=== PATIENT | female | born 1980 | race African-American/Black ===

== ENCOUNTER 2019-12-24 11:31 | Emergency (ER) | payer MEDICAID, SELFPAY ==
--- NOTE | 2019-12-24 | XR_ITS ---
EXAMINATION: XR CHEST CLINICAL INFORMATION: Cough, shortness of breath. COMPARISON: None. TECHNIQUE: AP portable upright view of the chest FINDINGS: Lungs are clear. No consolidation, pneumothorax, or pleural effusion. Cardiac and mediastinal contours are normal. Pulmonary vasculature is unremarkable. Osseous structures are unremarkable. IMPRESSION: No acute cardiopulmonary findings
[2019-12-24 11:48] VITALS: BP 135/74; PULSE 100; RESP 17; TEMP 36.4; O2SAT 97; BMI 40.2
--- NOTE | 2019-12-24 11:52 | ED.URI ---
HPI - URI/Sore Throat General Chief Complaint: Upper Respiratory Symptoms Stated Complaint: SOB, SORE THROAT, HEADACHE, COUGH Time Seen by Provider: 12/24/19 11:42 Source: patient Mode of arrival: ambulatory Limitations: no limitations History of Present Illness HPI Narrative: Cough, runny nose, sore throat, shortness of breath, headache for 3 days. Son at home has same symptoms. No fevers or chills MD elicited complaint: cough, sore throat and rhinorrhea Onset (ago): day(s) Consistency: constant Severity: mild Able to tolerate fluids by mouth: Yes Context: sick contacts Related Data Allergies Allergy/AdvReac Type Severity Reaction Status Date / Time No Known Allergies Allergy Unverified 12/03/19 17:57 [No Known Allergies*] Review of Systems Review of Systems: Yes all other systems are reviewed and are negative Constitutional: Constitutional: Reports no additional constitutional complaints, Reports body ache(s), Denies chills, Denies fever(s), Reports headache(s) and Denies weakness Eyes: Eyes: Reports no additional eye complaints and Denies change in vision ENT: Reports system reviewed and no additional complaints, except as documented, Denies dizziness, Denies otalgia, Reports headache(s), Reports nasal discharge, Denies neck pain and Reports sore throat Cardiovascular: Cardiovascular: Reports no additional cardiovascular complaints, Denies chest pain, Denies leg edema and Reports dyspnea Respiratory: Respiratory: Reports no additional respiratory complaints, Reports cough and Reports dyspnea Gastrointestinal: Gastrointestinal: Reports no additional gastrointestinal complaints, Denies abdominal pain, Denies diarrhea, Denies nausea and Denies vomiting Genitourinary: Genitourinary: Reports no additional female genitourinary complaints and Denies urinary incontinence Musculoskeletal: Musculoskeletal: Reports no additional musculoskeletal complaints, Denies back pain, Denies arthralgias, Denies joint swelling, Denies neck pain, Denies numbness and Denies tingling Integumentary/Breasts: Skin/Breast: Reports system reviewed and no additional complaints, except as docu and Denies rash Neurologic: Reports system reviewed and no additional complaints, except as documented, Denies Abnormal speech present, Denies dizziness, Reports headache(s), Denies numbness, Denies tingling and Denies weakness PMFSH Past Medical History Attestation statement: The following information was validated with the patient. Source: obtained from family and nursing notes reviewed Medical History Diabetes Social History Social History Alcohol intake: unknown Use of substances other than those prescribed or required for medical reasons: Unknown Advance Directives: No Advance Directives Information Provided: Yes Physical Exam Vital Signs and I&O and Narrative: Vital Signs and I&O: Vital Signs Temp 97.6 F 12/24/19 11:48 Pulse 100 12/24/19 11:48 Resp 17 12/24/19 11:48 BP 135/74 12/24/19 11:48 Pulse Ox 97 12/24/19 11:48 Intake & Output 12/23/19 12/24/19 12/24/19 18:59 06:59 18:59 Weight 99.79 kg Body Mass Index 40.2 Const: General: cooperative, healthy appearing, comfortable and no acute distress Orientation/consciousness: patient oriented x3 Limitations: no limitations HENMT: Head: Yes normal to inspection Ears: hearing grossly normal bilaterally General nose exam: Normal external nose present Face and sinus: Yes normal facial exam Mouth: Normal oral and palatal mucosa present Throat: Yes posterior oropharynx normal Eyes: General: appearance normal, both eyes and all related structures Pupils: Equal, round and reactive pupils present Neck: Neck: Yes normal visual inspection Chest: Chest palpation & inspection: normal inspection of the chest Resp: Effort & Inspection: normal respiratory effort and able to speak in complete sentences Auscultation: clear to auscultation bilaterally and wheezes expiratory wheezes, left lower, right lower and posterior Cardio: Rate: regular rate Rhythm: regular rhythm Peripheral pulses: Peripheral pulses 2+ throughout GI: Inspection: Yes normal to inspection Palpation (GI): Soft to palpation and nontender Auscultation: normal bowel sounds Back/Spine/Pelvis: Thoracic/Lumbar Spine: thoracic and lumbar spine normal to inspection Skin: General skin exam: no rashes or lesions noted Neuro: General: patient oriented x3, no focal motor deficits and normal sensation to monofilament Cranial nerves: Yes Equal, round and reactive pupils present Cognition (Neuro): normal cognition Speech: No Abnormal speech present Gait exam (Neuro): Normal gait present Motor exam (neuro): 5/5 motor strength present throughout Extrem: General: Yes normal to inspection MDM - URI/Sore Throat MDM Narrative Medical decision making narrative: flu-like symptoms for the last 2 days with sick contact. Requesting COVID testing. Has some expiratory wheezing on exam with stable saturations and speaking full sentences. Will give albuterol MDI 2 puffs and reassess. Check chest x-ray and COVID swab. 1300- Chest x-ray unremarkable. COVID testing sent. Reviewed worrisome signs and symptoms and when to return to the emergency department. Comfortable discharge home. Imaging Data Chest x-ray: Attestation: I personally reviewed and interpreted this imaging study as follows: My impression: Unremarkable Radiologist's impression: unremarkable. No acute abnormality. Discharge Plan Discharge Clinical Impression: Viral infection Patient Disposition: Home, Self-Care Instructions: Viral Syndrome (ED) Additional Instructions: We have tested due today for COVID-19. We will call you in 1-2 days with her test results If her test result is positive you will need to self-quarantine for a total of 14 days. If her test result is negative but you continue to have symptoms you should still self-quarantine. Use your inhaler every 4-6 hours as needed for cough or wheezing Increase fluids, rest Motrin or Tylenol if able as needed for pain or fever Referrals: Physician,Unknown [Primary Care Provider] - 2 days Stand Alone Forms: Work/School Release Interventions: ED Discharge Assessment Last Done: 12/24/19 13:05 Discharge Date/Time: 12/24/19 13:06
== END 2019-12-24 13:06 | disposition home or self-care (01) ==
PROVIDERS: Nurse Practitioner Family; Emergency Provider Internal Medicine
DX: B34.9 Viral infection, unspecified (principal); Z20.828 Contact with and (suspected) exposure to other viral communicable diseases; J02.9 Acute pharyngitis, unspecified; E11.9 Type 2 diabetes mellitus without complications
CPT/HCPCS: 71045; 87635; 99283; 99284

== ENCOUNTER 2020-01-04 11:01 | Outpatient (REF) | payer MEDICAID, SELFPAY | END 2020-01-04 11:02 | disposition home or self-care (01) | LOC: HO.LAB 11:01 | PROVIDERS: Visit Provider Internal Medicine | DX: Z20.828 Contact with and (suspected) exposure to other viral communicable diseases (principal) | CPT/HCPCS: 87635 ==

== ENCOUNTER 2020-01-11 13:15 | Outpatient (REF) | payer MEDICAID, SELFPAY | END 2020-01-11 13:16 | disposition home or self-care (01) | LOC: HO.LAB 13:15 | PROVIDERS: Visit Provider Internal Medicine | DX: Z20.828 Contact with and (suspected) exposure to other viral communicable diseases (principal) | CPT/HCPCS: 87635 ==

== ENCOUNTER 2020-02-23 06:37 | Outpatient (REF) | payer MEDICAID, SELFPAY | END 2020-02-23 06:38 | disposition home or self-care (01) | LOC: HO.LAB 06:37 | PROVIDERS: Visit Provider Internal Medicine | DX: Z20.828 Contact with and (suspected) exposure to other viral communicable diseases (principal) | CPT/HCPCS: C9803; U0003 ==

== ENCOUNTER 2020-02-29 06:19 | Outpatient (REF) | payer MEDICAID, SELFPAY | END 2020-02-29 06:20 | disposition home or self-care (01) | LOC: HO.LAB 06:19 | PROVIDERS: Visit Provider Internal Medicine | DX: Z20.828 Contact with and (suspected) exposure to other viral communicable diseases (principal) | CPT/HCPCS: C9803; U0003 ==

== ENCOUNTER 2020-02-29 07:48 | Emergency (ER) | payer MEDICAID, SELFPAY ==
[2020-02-29 07:54] VITALS: BP 168/96; PULSE 89; RESP 17; TEMP 36.1; O2SAT 99; BMI 31.7
--- NOTE | 2020-02-29 09:07 | ED.NECK ---
HPI - Neck Pain/Injury General Chief Complaint: Neck Pain/Injury Stated Complaint: pain in the back of your head Time Seen by Provider: 02/29/20 09:06 Source: patient Mode of arrival: ambulatory Limitations: no limitations History of Present Illness HPI Narrative: 39 y/o female presenting with 4 days of non-traumatic neck pain, mostly on the left side. She states she woke up with the pain and does not recall any injury. She has not taken any medications for the pain. She states it is worse when looking to her right. She reports posterior headache as well and upper back tightness. No fever, chills, vision changes, N/V. MD complaint: neck pain and upper back pain Onset (ago): day(s) (4) Place: home Radiation: left lateral, occiput and upper back Severity: moderate Severity scale (1-10): 6 Quality: aching Duration: constant Relieving factors: none Exacerbating factors: movement of neck Context: unknown Associated symptoms: headache Treatments prior to arrival: none Related Data Previous Rx's Medication Instructions Recorded cyclobenzaprine 10 mg PO TID PRN #12 tab 02/29/20 ibuprofen 600 mg PO Q8H PRN #30 tab 02/29/20 lidocaine [Lidoderm] 1 patch TOPICAL DAILY #15 ea 02/29/20 Allergies Allergy/AdvReac Type Severity Reaction Status Date / Time No Known Allergies Allergy Unverified 12/03/19 17:57 [No Known Allergies*] Review of Systems Review of Systems: Constitutional: No Fever, No Chills ENT/Mouth: No sore throat, No Rhinorrhea, No Swallowing Difficulty Cardiovascular: No Chest Pain, No SOB, No Orthopnea, No Edema Respiratory: No Cough, No Sputum, No Wheezing, No dyspnea Gastrointestinal: No Nausea, No Vomiting, No Diarrhea, No abdominal Pain Musculoskeletal: + joint pain, + Myalgias Skin: No Skin Lesions, No rash Neuro: No Weakness, No Numbness, No Dizziness, + Headache Heme/Lymph: No Bruising, No Lymphadenopathy PMFSH Past Medical History Attestation statement: The following information was validated with the patient. Medical History Diabetes Social History Social History Alcohol intake: unknown Advance Directives: No Advance Directives Information Provided: No Physical Exam Vital Signs: Vital Signs: Last Vital Signs Temp 97.0 F 02/29/20 07:54 Pulse 89 02/29/20 07:54 Resp 17 02/29/20 07:54 BP 168/96 H 02/29/20 07:54 Pulse Ox 99 02/29/20 07:54 Body Mass Index 31.7 Appearance: Alert. Oriented X3. No acute distress. Eyes: Pupils equal, round and reactive to light. ENT: Pharynx normal. Neck: Normal inspection. Neck supple. Left lateral soft tissue tenderness with palpable spasm of upper trapezius and superior SCM. no cervical spinal tenderness of step-off deformity. CVS: Normal heart rate and rhythm. Pulses normal. Respiratory: No respiratory distress. Breath sounds normal. Skin: Skin warm and dry. Normal skin color. Normal skin turgor. No rashes. Extremities: Atraumatic. No lower extremity edema. Neuro: Oriented X 3. No motor deficit. No sensory deficit. Course Course Course Narrative: 39 y/o presenting with non-traumatic neck pain - exam and history consistent with muscular pain and spasm, possible torticollis but ROM is adequate. Will give muscle relaxer, NSAID and Lidoderm patches for pain. She was counseled on managment. She has no PCP and information has been provided to her. She is stable for d/c. MDM - Neck Pain/Injury Differential Diagnosis Differential diagnosis: Likely disc disorder of cervical region, cervical radiculopathy, torticollis and strain of neck muscle Critical Care Time Critical Care Time Critical Care Time: No Discharge Plan Discharge Clinical Impression: Strain of neck muscle Qualifiers: Encounter type: initial encounter Qualified Code(s): S16.1XXA - Strain of muscle, fascia and tendon at neck level, initial encounter Patient Disposition: Home, Self-Care Instructions: Cervical Strain (ED), Acute Neck Pain (ED) Additional Instructions: Use ice and/or heat to the area several times per day. Take the prescribed medications as needed for pain and spasm. Follow up with your doctor this week. If pain worsens or if you develop any new or concerning symptoms come back to the ER for further evaluation. Prescriptions: New lidocaine [Lidoderm] 5 % adhesive patch,medicated 1 patch topical DAILY Qty: 15 RF: 0 ibuprofen 600 mg tablet 600 mg PO Q8H PRN (Reason: pain) Qty: 30 RF: 0 cyclobenzaprine 10 mg tablet 10 mg PO TID PRN (Reason: muscle spasm) Qty: 12 RF: 0 Interventions: ED Discharge Assessment Last Done: 02/29/20 09:31 Discharge Date/Time: 02/29/20 09:32 Print Language: Occitan
== END 2020-02-29 09:32 | disposition home or self-care (01) ==
PROVIDERS: Emergency Provider Emergency Medicine
DX: S16.1XXA Strain of muscle, fascia and tendon at neck level, initial encounter (principal); X58.XXXA Exposure to other specified factors, initial encounter; Z20.828 Contact with and (suspected) exposure to other viral communicable diseases; E11.9 Type 2 diabetes mellitus without complications; Y93.9 Activity, unspecified; Y92.9 Unspecified place or not applicable; Y99.9 Unspecified external cause status
CPT/HCPCS: 99283

== ENCOUNTER 2020-08-30 15:08 | Outpatient (REF) | payer MEDICAID, SELFPAY ==
--- NOTE | ~2020-08-30 | US_ITS ---
EXAMINATION: US THYROID CLINICAL INFORMATION: Nontoxic single thyroid nodule. COMPARISON: Ultrasound soft tissue head/neck thyroid dated 12/16/2017. TECHNIQUE: Linear transducer grayscale and color Doppler examination with attention to the region of the thyroid. FINDINGS: SIZE: Measurements of the thyroid lobes and nodules are given in sagittal, anteroposterior and transverse dimensions respectively. Right Thyroid Lobe: 5.0 x 1.9 x 1.8 cm, volume 8.9 mL. Previously 4.8 x 1.6 x 1.8 cm, volume 7.2 mL. Parenchyma: The gland echotexture is homogeneous. Thyroid vascularity is normal. Left Thyroid Lobe: 4.8 x 1.4 x 1.5 cm, volume 5.3 mL. Previously 4.6 x 1.6 x 1.4 cm, volume 5.3 mL. Parenchyma: The gland echotexture is homogeneous. Thyroid vascularity is normal. Isthmus: 0.5 cm in maximum AP dimension. Previously 0.5 cm. Estimated total number of nodules greater than or equal to 1 cm: 1. Glass Blowing Lathe Operator nodules are described as follows: 1. Location: Right superior. Size: 0.7 x 0.7 x 0.4 cm, volume 0.1 mL. Previously: 0.9 x 0.5 x 0.9 cm, volume 0.2 mL. Nodule characteristics: Composition: Spongiform (0). Echogenicity: Anechoic (0). Shape: Not taller than wide (0). Margins: Smooth (0). Echogenic Foci: None (0). ACR TI-RADS total points: 0 ACR TI-RADS category: 1 Significant change in size (>/= 20% in 2 dimensions and minimal increase of 2 mm or 50% or greater increase in volume): Yes but decreased Change in features: No Change in ACR TI-RADS risk category: No 2. Location: Right superior. Size: 1.0 x 0.6 x 0.3 cm, volume 0.1 mL. Previously: 1.2 x 0.6 x 0.8 cm, volume 0.3 mL. Nodule characteristics: Composition: Mixed cystic and solid (1). Echogenicity: Hypoechoic (2). Shape: Not taller than wide (0). Margins: Smooth (0). Echogenic Foci: None (0). ACR TI-RADS total points: 3 ACR TI-RADS category: 3 Significant change in size (>/= 20% in 2 dimensions and minimal increase of 2 mm or 50% or greater increase in volume): Yes but decreased Change in features: Yes. This appears more complex cystic. Change in ACR TI-RADS risk category: No 3. Location: Right mid. Size: 0.2 x 0.3 x 0.3 cm, volume 0.01 mL. Previously: 0.2 x 0.1 x 0.3 cm, volume 0.003 mL. Nodule characteristics: Composition: Solid/almost completely solid (2). Echogenicity: Isoechoic (1). Shape: Not taller than wide (0). Margins: Smooth (0). Echogenic Foci: None (0). ACR TI-RADS total points: 3 ACR TI-RADS category: 3 Significant change in size (>/= 20% in 2 dimensions and minimal increase of 2 mm or 50% or greater increase in volume): No Change in features: No Change in ACR TI-RADS risk category: No 4. Location: Left mid. Size: 0.1 x 0.2 x 0.2 cm, volume 0.002 mL. Previously: Not seen on the previous study. Nodule characteristics: Composition: Cystic(0). ACR TI-RADS total points: 0 ACR TI-RADS category: 1 NODES: No lymphadenopathy is seen in the tissue surrounding the thyroid gland. US/US thyroid IMPRESSION: Small bilateral thyroid nodules. The 2 largest right thyroid nodules appear decreased in size compared to December 2017. The largest nodule in the superior right lobe appears more complex cystic. There is a newly appreciated small left nodule. Nodules do not meet ultrasound TI RADS criteria for fine-needle aspiration.. ACR TI-RADS RECOMMENDATION REFERENCE: Ultrasound-guided fine-needle aspiration, followup ultrasound, no further follow up. * TR1 (0 point) and TR 2 (2 points): No FNA or follow up * TR3 (3 points): FNA if more than or equal to 2.5 cm in maximum dimension, followup ultrasound in 1, 3 and 5 years if 1.5 to 2.4 cm in maximum dimension. * TR4 (4-6 points): FNA if more than or equal to 1.5 cm in maximum dimension, followup ultrasound in 1, 2, 3 and 5 years if 1 to 1.4 cm in maximum dimension. * TR5 (more than or equal to 7 points): FNA if more than or equal to 1 cm in maximum dimension, followup ultrasound every year for 5 years if 0.5 to 0.9 cm in maximum dimension. * TR3, TR4 or TR5 nodules that are below the size threshold for follow up receive no follow up.
== END 2020-08-30 15:09 | disposition home or self-care (01) ==
LOC: HO.US 15:08
PROVIDERS: PCP Registered Nurse; Visit Provider Registered Nurse
DX: E04.1 Nontoxic single thyroid nodule (principal)
CPT/HCPCS: 76536

== ENCOUNTER → 2020-09-08 14:12 | Outpatient (BNVA) | payer MEDICAID, SELFPAY | PROVIDERS: PCP Registered Nurse; Visit Provider Internal Medicine | DX: E04.2 Nontoxic multinodular goiter (principal); E55.9 Vitamin D deficiency, unspecified | CPT/HCPCS: 99202 ==

== ENCOUNTER 2020-10-20 12:25 | Outpatient (REF) | payer MEDICAID, SELFPAY ==
--- NOTE | ~2020-10-20 | XR_ITS ---
EXAMINATION: XR KNEE, RIGHT CLINICAL INFORMATION: Right knee pain. Effusion. COMPARISON: None TECHNIQUE: Four views of the right knee. FINDINGS: Bony mineralization is normal. There is no fracture or destructive process. There are degenerative changes with mild narrowing medial knee joint compartment and marginal osteophytes from the medial and lateral femoral condyles and borderline osteophyte medial plateau. No erosive change or visible chondrocalcinosis. There is a moderate to large suprapatellar effusion. Hoffa's fat pad appears normal. There is no lateralization or tilting of the patella. The patellofemoral joint appears normal. XR/XR knee RT 4V IMPRESSION: 1. Moderate to large suprapatellar effusion. 2. Mild narrowing medial knee joint compartment. Spurring femoral condyles and borderline spurring tibial plateau. No erosive change.
--- NOTE | ~2020-10-20 | XR_ITS ---
EXAMINATION: XR CHEST CLINICAL INFORMATION: Shortness of breath COMPARISON: Chest radiograph 12/24/2019 TECHNIQUE: 2 views of the chest were obtained. FINDINGS: There is subtle coarsening bronchiolar markings which may be related to bronchitis. There is no hyperinflation, airspace consolidation, groundglass opacity. The costophrenic sulci are clear. The heart is normal in size. The vascularity is normal. The hilar and mediastinal contours are normal. There is no acute bony abnormality. XR/XR chest 2V IMPRESSION: Mild coarsening bronchiolar markings which may related to bronchitis. No airspace consolidation, groundglass opacity, or effusion.
[2020-10-20 13:46] LABS: Free T4 (Free Thyroxine) 0.99 ng/dL (0.71-1.85); Thyroid Stimulating Hormone 0.91 uIU/mL (0.32-4.0); Vitamin D 25-OH Total 18.4 ng/mL (>30)
== END 2020-10-20 12:26 | disposition home or self-care (01) ==
LOC: HO.LAB 12:25
PROVIDERS: Absent Provider Internal Medicine; PCP Registered Nurse; Visit Provider Registered Nurse
DX: E04.2 Nontoxic multinodular goiter (principal); E55.9 Vitamin D deficiency, unspecified; M25.461 Effusion, right knee; M25.561 Pain in right knee; R06.02 Shortness of breath
CPT/HCPCS: 36415; 71046; 73564; 82306; 84439; 84443

== ENCOUNTER 2021-09-09 17:02 | Emergency (ER) | payer MEDICAID, SELFPAY ==
--- NOTE | 2021-09-09 17:03 | ECG_ITS ---
Test Reason : DIZZY X 3DAYS Blood Pressure : / mmHG Vent. Rate : 094 BPM Atrial Rate : 094 BPM P-R Int : 128 ms QRS Dur : 078 ms QT Int : 352 ms P-R-T Axes : 056 007 -66 degrees QTc Int : 440 ms Normal sinus rhythm Minimal voltage criteria for LVH, may be normal variant ( R in aVL ) T wave abnormality, consider inferolateral ischemia Abnormal ECG No previous ECGs available Referred By: Generic ED Physician Electronically Signed By:XANDER AGUILERA MD
[2021-09-09 17:05] VITALS: BP 120/73; PULSE 100; RESP 18; TEMP 36.3; O2SAT 98; BMI 34.3
[2021-09-09 19:12] VITALS: BP 125/71; PULSE 85; RESP 18; TEMP 36.5; O2SAT 97
[2021-09-09 19:15] VITALS: BP 125/71; PULSE 85
[2021-09-09 19:16] VITALS: BP 116/69; BP 118/66; PULSE 101; PULSE 95
--- NOTE | 2021-09-09 19:17 | ED_ITS ---
HPI - Dizziness General Chief Complaint: Dizziness Stated Complaint: Dizzy/HBP Time Seen by Provider: 09/09/21 22:17 Source: patient Mode of arrival: ambulatory Limitations: language barrier History of Present Illness HPI Narrative: 41-year-old female presents with 3 days of dizziness, and intermittent loss of balance. She reported to take of vertigo pill from her cousin that did not help. She is concerned because the dizziness is lasted for 3 days and has not gone away. She did not report any fevers, chills, changes in vision, urinary symptoms, abdominal pain, chest pain or pressure, palpitations weakness, or lightheadedness. MD elicited complaint: vertigo and disequilibrium Pertinent past history: anemia Onset (ago): day(s) (3) Timing: gradual onset Severity: moderate Description: room spinning and off-balance History of similar symptoms: No Exacerbating factors: nothing Relieving factors: nothing Associated symptoms: denies other symptoms Related Data Home Medications Medication Instructions Recorded Confirmed metformin 500 mg tablet 500 mg PO BID 09/08/20 Previous Rx's Medication Instructions Recorded ibuprofen 600 mg tablet 600 mg PO Q8H PRN pain #30 tabs 02/29/20 cholecalciferol (vitamin D3) 50 50 mcg PO DAILY 30 days #30 caps 10/24/20 mcg (2,000 unit) capsule Allergies Allergy/AdvReac Type Severity Reaction Status Date / Time No Known Allergies Allergy Verified 09/08/20 14:28 [No Known Allergies*] Review of Systems Review of Systems: Constitutional: No Fever, No Chills ENT/Mouth: No Ear Pain, No Hoarseness, No sore throat Eyes: No Eye Pain, No Swelling, No Redness, No Foreign Body Cardiovascular: No Chest Pain, No SOB Respiratory: No Cough, No Dyspnea Gastrointestinal: No Nausea, No Vomiting, No Diarrhea, No abdominal Pain Genitourinary: No Dysuria, No Hematuria Musculoskeletal: positive joint pain, No Myalgias, No Joint Swelling Skin: No Skin lacerations, No rash Neuro: No Weakness, No Numbness, No Paresthesias, No Loss of Consciousness, positive Dizziness, No Headache Psych: No Anxiety/Panic, No Depression Heme/Lymph: no easy bruising, no Lymphadenopathy Endocrine: No Polyuria, No Polydipsia Yes all other systems are reviewed and are negative [facility] Past Medical History Attestation statement: The following information was validated with the patient. Source: old records reviewed Medical History Diabetes Surgical History History of hand surgery History of surgery Hx of section Family History Family History Father No problems noted. Mother Type 2 diabetes mellitus Social History Social History Alcohol intake: unknown Patient Tobacco Use Status: Current everyday Tobacco user Tobacco use type: Cigarette Advance Directives: No Advance Directives Information Provided: No Physical Exam Vital Signs: Vital Signs: Last Vital Signs Temp 97.7 F 09/09/21 19:12 Pulse 101 H 09/09/21 19:16 Resp 18 09/09/21 19:12 BP 116/69 09/09/21 19:16 Pulse Ox 97 09/09/21 19:12 O2 Del Method 09/09/21 19:12 BMI result Body Mass Index 34.3 Appearance: Alert. Oriented X3. No acute distress. Head: Normal external exam. Normocephalic. Atraumatic. Eyes: PERRLA. EOMI. Conjunctiva and sclera normal. Eyelids normal. ENT: TM's Normal. Pharynx normal. Uvula midline. Moist mucous membranes. No trismus noted. Neck: Normal inspection. Neck supple. No adenopathy. No meningeal signs. No neck mass noted. CVS: Normal heart rate and rhythm. Heart sound normal. No murmurs noted. Pulses equal to all extremities. Respiratory: No respiratory distress. Painless inspiration. Breath sounds normal. No wheezes/rales/rhonchi noted. Chest nontender. No accessory muscle usage noted or decreased air movement noted. Abdomen: Soft and nontender. Bowel sounds normal in all 4 quadrants. No distention noted. No organomegaly noted. No visible injury noted. Back: No CVA tenderness. Full range of motion noted. Skin: Skin warm and dry. Normal skin color. Normal skin turgor. No rashes/lesions/lacerations noted. Extremities: No lower extremity edema. Extremities exhibit normal range of motion. Extremities nontender. Neuro: cranial nerves 2-12 intact, no focal neural deficits, strength 5/5 to a ll extremities, No motor deficit. No sensory deficit. Course Course Course Narrative: 41-year-old female presents with her 1st episode of dizziness. Dizziness has lasted 3 days and is intermittent. She does not report any other concerning symptoms with this dizziness. She did try to take a vertigo pill from her cousin with poor effect. She does have a history of anemia. Will order labs, urinalysis, urine and CT scan of the head. CT scan of the head will be completed once lab values return. 21:51 urinalysis is pending. 22:22 patient stated that she does not want a complete exam. States that she has an appointment with her primary care provider on Saturday and will receive a CT scan at that time. I did explain to her that the primary care physician could order CT scan but she would have to come back to a hospital or another facility that provides that testing for her. She does understand the risks of leaving without completing testing including stroke, brain tumor, and decreased quality of life. Patient is alert oriented, responding appropriately to all questions, is competent and able to make her own decisions. medical interpreter utilized for all correspondence. Google translate utilized for discharge instructions. MDM - Dizziness Differential Diagnosis Differential diagnosis: Likely benign paroxysmal positional vertigo, vertebral basilar insufficiency, cerebrovascular accident, acute vestibular neuronitis and transient cerebral ischemia Medical Records Attestation: I reviewed the patient's medical records. Lab Data Attestation: I reviewed the patient's lab results. Result diagrams: 09/09/21 19:35 09/09/21 19:35 Labs: Lab Results 09/09/21 09/09/21 09/09/21 Range/Units 19:31 19:31 19:35 WBC 8.7 (4.8-10.8) X10*3/uL RBC 5.29 (4.20-5.50) X10*6/uL Hgb 11.9 L (12.0-16.0) g/dl Hct 38.9 (37.0-47.0) % MCV 73.5 L (80.0-98.0) fL MCH 22.5 L (27.0-33.0) pg MCHC 30.6 L (31.0-35.0) g/dl RDW 22.2 H (11.0-16.0) % Plt Count 188 (160-400) X10*3/uL MPV Not Reportable Immature Gran % (Auto) 0.3 (0.0-0.4) % Neut % (Auto) 64.6 (45-73) % Lymph % (Auto) 25.6 (20-40) % [place] % (Auto) 6.4 (2-11) % Eos % (Auto) 2.5 (0-4) % Baso % (Auto) 0.6 (0-2) % Lymph # (Auto) 2.2 (1.2-4.9) X10*3/uL [place] # (Auto) 0.6 (0.1-1.2) X10*3/uL Eos # (Auto) 0.2 (0.0-0.4) X10*3/uL Baso # (Auto) 0.1 (0.0-0.2) X10*3/uL Abs Immat Gran (auto) 0.03 (0.00-0.03) X10*3/uL Absolute Neuts (auto) 5.6 (2.0-8.3) x10*3/uL Absolute Nucleated RBC 0.000 (0.0-0.012) X10*3/uL Nucleated RBC % (auto) 0.0 (0.0-0.2) /100WBC Smear Tech's Comments VERIFIED Sodium (135-145) mmol/L Potassium (3.3-5.1) mmol/L Chloride (96-108) mmol/L Carbon Dioxide (22-29) mmol/L Anion Gap (12-20) BUN (9-16) mg/dL Creatinine (0.5-1.4) mg/dL Estim Creat Clear Calc Estimated GFR Random Glucose (60-115) mg/dL Calcium (8.4-10.2) mg/dL Total Bilirubin (0.0-1.0) mg/dL Direct Bilirubin (0.0-0.5) mg/dL AST (5-31) U/L ALT (0-31) U/L Alkaline Phosphatase (39-117) U/L Troponin I High Sens (<3.5-17.0) ng/L Total Protein (6.5-8.0) g/dL Albumin (3.5-5.0) g/dL Lipase (8-78) U/L Urine Color Urine Appearance Urine pH (5.0-8.0) Ur Specific [place] (1.005-1.025) Urine Protein (NEG-TRACE) MG/DL Urine Glucose (UA) (NEG) MG/DL Urine Ketones (NEG) MG/DL Urine Blood (NEG) Urine Nitrite (NEG) Ur Leukocyte Esterase (NEG) Urine Test (NEGATIVE) COVID-19 (ULISES) Negative (Negative) COVID-19 Clin Com See Note Influenza Type A (BRIDGET) Negative (Negative) Influenza Type B (BRIDGET) Negative (Negative) Influenza A & B Note See Note 09/09/21 09/09/21 09/09/21 Range/Units 19:35 19:35 21:38 WBC (4.8-10.8) X10*3/uL RBC (4.20-5.50) X10*6/uL Hgb (12.0-16.0) g/dl Hct (37.0-47.0) % MCV (80.0-98.0) fL MCH (27.0-33.0) pg MCHC (31.0-35.0) g/dl RDW (11.0-16.0) % Plt Count (160-400) X10*3/uL MPV Immature Gran % (Auto) (0.0-0.4) % Neut % (Auto) (45-73) % Lymph % (Auto) (20-40) % [place] % (Auto) (2-11) % Eos % (Auto) (0-4) % Baso % (Auto) (0-2) % Lymph # (Auto) (1.2-4.9) X10*3/uL [place] # (Auto) (0.1-1.2) X10*3/uL Eos # (Auto) (0.0-0.4) X10*3/uL Baso # (Auto) (0.0-0.2) X10*3/uL Abs Immat Gran (auto) (0.00-0.03) X10*3/uL Absolute Neuts (auto) (2.0-8.3) x10*3/uL Absolute Nucleated RBC (0.0-0.012) X10*3/uL Nucleated RBC % (auto) (0.0-0.2) /100WBC Smear Tech's Comments Sodium 137 (135-145) mmol/L Potassium 3.8 (3.3-5.1) mmol/L Chloride 103 (96-108) mmol/L Carbon Dioxide 24 (22-29) mmol/L Anion Gap 14 (12-20) BUN 13 (9-16) mg/dL Creatinine 0.80 (0.5-1.4) mg/dL Estim Creat Clear Calc 98.9 Estimated GFR > 60 Random Glucose 201 H (60-115) mg/dL Calcium 9.4 (8.4-10.2) mg/dL Total Bilirubin 0.2 (0.0-1.0) mg/dL Direct Bilirubin < 0.2 (0.0-0.5) mg/dL AST 17 (5-31) U/L ALT 40 H (0-31) U/L Alkaline Phosphatase 85 (39-117) U/L Troponin I High Sens < 3.5 (<3.5-17.0) ng/L Total Protein 6.9 (6.5-8.0) g/dL Albumin 4.0 (3.5-5.0) g/dL Lipase 35 (8-78) U/L Urine Color YELLOW Urine Appearance CLEAR Urine pH 6.0 (5.0-8.0) Ur Specific [place] 1.025 (1.005-1.025) Urine Protein TRACE (NEG-TRACE) MG/DL Urine Glucose (UA) 100 H (NEG) MG/DL Urine Ketones NEG (NEG) MG/DL Urine Blood NEG (NEG) Urine Nitrite NEG (NEG) Ur Leukocyte Esterase NEG (NEG) Urine Test (NEGATIVE) COVID-19 (ULISES) (Negative) COVID-19 Clin Com Influenza Type A (BRIDGET) (Negative) Influenza Type B (BRIDGET) (Negative) Influenza A & B Note 09/09/21 Range/Units 21:38 WBC (4.8-10.8) X10*3/uL RBC (4.20-5.50) X10*6/uL Hgb (12.0-16.0) g/dl Hct (37.0-47.0) % MCV (80.0-98.0) fL MCH (27.0-33.0) pg MCHC (31.0-35.0) g/dl RDW (11.0-16.0) % Plt Count (160-400) X10*3/uL MPV Immature Gran % (Auto) (0.0-0.4) % Neut % (Auto) (45-73) % Lymph % (Auto) (20-40) % [place] % (Auto) (2-11) % Eos % (Auto) (0-4) % Baso % (Auto) (0-2) % Lymph # (Auto) (1.2-4.9) X10*3/uL [place] # (Auto) (0.1-1.2) X10*3/uL Eos # (Auto) (0.0-0.4) X10*3/uL Baso # (Auto) (0.0-0.2) X10*3/uL Abs Immat Gran (auto) (0.00-0.03) X10*3/uL Absolute Neuts (auto) (2.0-8.3) x10*3/uL Absolute Nucleated RBC (0.0-0.012) X10*3/uL Nucleated RBC % (auto) (0.0-0.2) /100WBC Smear Tech's Comments Sodium (135-145) mmol/L Potassium (3.3-5.1) mmol/L Chloride (96-108) mmol/L Carbon Dioxide (22-29) mmol/L Anion Gap (12-20) BUN (9-16) mg/dL Creatinine (0.5-1.4) mg/dL Estim Creat Clear Calc Estimated GFR Random Glucose (60-115) mg/dL Calcium (8.4-10.2) mg/dL Total Bilirubin (0.0-1.0) mg/dL Direct Bilirubin (0.0-0.5) mg/dL AST (5-31) U/L ALT (0-31) U/L Alkaline Phosphatase (39-117) U/L Troponin I High Sens (<3.5-17.0) ng/L Total Protein (6.5-8.0) g/dL Albumin (3.5-5.0) g/dL Lipase (8-78) U/L Urine Color Urine Appearance Urine pH (5.0-8.0) Ur Specific [place] (1.005-1.025) Urine Protein (NEG-TRACE) MG/DL Urine Glucose (UA) (NEG) MG/DL Urine Ketones (NEG) MG/DL Urine Blood (NEG) Urine Nitrite (NEG) Ur Leukocyte Esterase (NEG) Urine Test NEGATIVE (NEGATIVE) COVID-19 (ULISES) (Negative) COVID-19 Clin Com Influenza Type A (BRIDGET) (Negative) Influenza Type B (BRIDGET) (Negative) Influenza A & B Note ECG Data Attestation: I personally reviewed and interpreted this ECG as follows: ECG interpretation date: 09/09/21 ECG interpretation time: 17:04 Prior ECG tracings: not available for review Interpretation: Vent. rate 94 BPM DC interval 128 ms QRS duration 78 ms QT/QTc 352/440 ms P-R-T axes 56 7 -66 Normal sinus rhythm Minimal voltage criteria for LVH, may be normal variant ( R in aVL ) T wave abnormality, consider inferolateral ischemia Abnormal ECG No previous ECGs available Discharge Plan Discharge Clinical Impression: Dizziness Patient Disposition: Left Against Medical Advice Instructions: Dizziness (ED), Vertigo (ED) Additional Instructions: Le evaluaron por mareos. Decidi? irse en contra del consejo m?dico antes de maciel tomograf?a computarizada. Puede regresar en cualquier momento para completar la prueba. Seguimiento del m?dico de atenci?n primaria seg?n lo programado esta semana. Maciel electrocardiograma mostr? indicios de hipertrofia ventricular izquierda, alecia enzimas card?acas fueron negativas. Maciel prueba de influenza COVID y RSV son negativas. El an?lisis de orina fue negativo. Alecia valores de laboratorio indican anemia, sin embargo, alecia valores son mejores que en 2018. Ousmane por elegir sarah departamento de emergencias para maciel evaluaci?n. Por favor, sophia un seguimiento con el m?dico de atenci?n primaria seg?n sea necesario. Regrese al departamento de emergencias por cualquier s?ntoma nuevo, preocupante o que empeore You were evaluated for dizziness. You chose to leave against medical advice prior to your CT scan. You may return at any time to complete testing. Follow- up the primary care physician as scheduled this week. Your EKG showed indication of left ventricular hypertrophy, your cardiac enzymes were negative. Your COVID influenza and RSV test are negative. Urinalysis was negative. Your lab values indicate anemia, however your values are better than they were in 2018. Thank you for choosing this emergency department for evaluation. Please follow-up with primary care physician as needed. Return to the emergency depa rtment for any new, concerning, or worsening symptoms. Prescriptions: No Action cholecalciferol (vitamin D3) 50 mcg (2,000 unit) capsule 50 mcg PO DAILY 30 Days Qty: 30 11RF ibuprofen 600 mg tablet 600 mg PO Q8H PRN (Reason: pain) Qty: 30 0RF metformin 500 mg tablet 500 mg PO BID Stand Alone Forms: Against Medical Advice
[2021-09-09 20:00] LABS: Eosinophils Percent Auto 2.5 % (0-4); Imm Gran Abs Auto 0.03 X10*3/uL (0.00-0.03); Imm Gran Pct Auto 0.3 % (0.0-0.4); MANUAL DIFF FLAG SCAN; Mean Corpuscular HGB Conc 30.6 g/dl (31.0-35.0); Red Cell Distribution Width 22.2 % (11.0-16.0); SCAN SMEAR FLAG 1
[2021-09-09 20:02] LABS: Basophils Absolute Auto 0.1 X10*3/uL (0.0-0.2); Basophils Percent Auto 0.6 % (0-2); Eosinophils Absolute Auto 0.2 X10*3/uL (0.0-0.4); Hematocrit 38.9 % (37.0-47.0); Hemoglobin 11.9 g/dl (12.0-16.0); Lymphocytes Absolute Auto 2.2 X10*3/uL (1.2-4.9); Lymphocytes Percent Auto 25.6 % (20-40); Mean Corpuscular Hemoglobin 22.5 pg (27.0-33.0); Mean Corpuscular Volume 73.5 fL (80.0-98.0); Monocytes Absolute Auto 0.6 X10*3/uL (0.1-1.2); Monocytes Percent Auto 6.4 % (2-11); Neutrophils Absolute Auto 5.6 x10*3/uL (2.0-8.3); Neutrophils Percent Auto 64.6 % (45-73); Platelet Count 188 X10*3/uL (160-400); Red Blood Count 5.29 X10*6/uL (4.20-5.50); White Blood Count 8.7 X10*3/uL (4.8-10.8)
[2021-09-09 20:04] LABS: COVID-19 Test Negative (Negative); IDNOW Serial# 55D5AD1C; Influenza A Negative (Negative); Influenza B2 Negative (Negative)
[2021-09-09 20:06] LABS: PLT ABN DIST 1
[2021-09-09 20:12] LABS: Alanine Aminotransferase 40 U/L (0-31); Alkaline Phosphatase 85 U/L (39-117); Anion Gap 14 (12-20); Aspartate Amino Transferase 17 U/L (5-31); Bilirubin Direct < 0.2 mg/dL (0.0-0.5); Bilirubin Total 0.2 mg/dL (0.0-1.0); Blood Urea Nitrogen 13 mg/dL (9-16); Calcium 9.4 mg/dL (8.4-10.2); Carbon Dioxide 24 mmol/L (22-29); Chloride 103 mmol/L (96-108); Creatinine Clr Calc Pharmacy 98.9; Estimated Glomerular Filt Rate > 60; Glucose Random 201 mg/dL (60-115); Lipase 35 U/L (8-78); Potassium 3.8 mmol/L (3.3-5.1); Sodium 137 mmol/L (135-145); Total Protein 6.9 g/dL (6.5-8.0)
[2021-09-09 20:18] LABS: Troponin-I High Sensitivity < 3.5 ng/L (<3.5-17.0)
[2021-09-09] MEDS: 0.9 % Sodium Chloride 1,000 ML 999 ML IVCONT (20:34)
[2021-09-09 20:49] LABS: SLIDE REVIEW VERIFIED
[2021-09-09 22:05] LABS: Appearance Urine CLEAR; Color Urine YELLOW; Glucose Urine UA 100 MG/DL (NEG); Leukocyte Esterase Urine NEG (NEG); Nitrite Urine NEG (NEG); Specific Gravity - Urine 1.025 (1.005-1.025); Urine Blood NEG (NEG); Urine Ketones NEG (NEG); Urine Protein TRACE MG/DL (NEG-TRACE)
[2021-09-09 22:12] LABS: UPreg QC Valid YES; Urine Pregnancy NEGATIVE (NEGATIVE)
== END 2021-09-09 22:39 | disposition left against medical advice (07) ==
PROVIDERS: Nurse Practitioner Family; Emergency Provider Emergency Medicine
DX: R42 Dizziness and giddiness (principal); Z20.822 Contact with and (suspected) exposure to COVID-19; Z79.899 Other long term (current) drug therapy
CPT/HCPCS: 36415; 80048; 80076; 81003; 81025; 83690; 84484; 85025; 87502; 87635; 93005; 96360; 99284

== ENCOUNTER 2021-10-03 10:52 | Outpatient (RCR) | payer MEDICAID, SELFPAY ==
[2021-10-03 11:02] VITALS: BP 141/75; PULSE 76
== END 2021-10-03 11:50 | disposition home or self-care (01) ==
LOC: HO.PT 10:52
PROVIDERS: PCP Emergency Medicine; Visit Provider Emergency Medicine
DX: H81.12 Benign paroxysmal vertigo, left ear (principal)
CPT/HCPCS: 97161

== ENCOUNTER 2021-10-05 09:36 | Outpatient (REF) | payer MEDICAID, SELFPAY | END 2021-10-05 09:37 | disposition home or self-care (01) | LOC: HO.US 09:36 | PROVIDERS: PCP Registered Nurse; Visit Provider Internal Medicine | DX: Z13.89 Encounter for screening for other disorder (principal) ==

== ENCOUNTER 2021-11-27 08:38 | Outpatient (REF) | payer MEDICAID, SELFPAY ==
--- NOTE | ~2021-11-27 | XR_ITS ---
EXAMINATION: XR KNEE AP STANDING CLINICAL INFORMATION: Pain right knee. COMPARISON: None TECHNIQUE: AP bilateral standing view of the knees was obtained. FINDINGS: There is moderate medial and mild lateral compartment loss of joint space with periarticular spurring in medial and lateral compartments of both knees. No loose bodies, bony erosive changes or fracture seen. The soft tissues are normal. XR/XR knee standing BI IMPRESSION: Degenerative arthritic changes with periarticular spurring medial and lateral compartment both knees. No acute fracture or bony erosive changes seen.
== END 2021-11-27 08:39 | disposition home or self-care (01) ==
LOC: HO.HOSX 08:38
PROVIDERS: Visit Provider Physician Assistant
DX: M25.562 Pain in left knee (principal); M25.561 Pain in right knee
CPT/HCPCS: 73565; 99202

== ENCOUNTER 2022-05-10 11:13 | Outpatient (REF) | payer MEDICAID, SELFPAY ==
--- NOTE | 2022-05-10 11:34 | P.BOP_ITS ---
Brief Operative Note Date of Service: 05/10/22 Pre-op diagnosis: Multinodular Thyroid Procedure: EXAMINATION: US THYROID CLINICAL INFORMATION: Multinodular Thyroid COMPARISON: Prior TECHNIQUE: Linear transducer alva-scale and color Doppler examination with attention to the region of the thyroid. FINDINGS: SIZE: Measurements of the thyroid lobes and nodules are given in sagittal, anteroposterior and transverse dimensions respectively. Right Thyroid Lobe: 4.9 x 1.8 x 1.7 cm, volume 7.8 mL. Parenchyma: The gland echotexture is heterogenous. Thyroid vascularity is normal. Left Thyroid Lobe: 4.8 x 1.4 x 1.4 cm, volume 4.9 mL. Parenchyma: The gland echotexture is heterogenous. Thyroid vascularity is normal. Isthmus: 0.4 cm in maximum AP dimension. RIGHT THYROID LOBE: There are 2 nodules. 1) RMP: There is a 0.7 x 0.4 x 0.6 cm hypoechoic nodule with regular margins, no microcalcifications and normal vascularity. 2) RMP: 0.7 x 0.3 x 0.3 cm hypoechoic nodule with regular margins, no microcalcifications and normal vascularity. Left thyroid lobe: There are no nodules. NODES: No lymph nodes were assessed. Surgeon: Abby Logan, DO Was an [employer] Pattern [employer]er used for this Procedure?: No Estimated blood loss (mL): 0
== END 2022-05-10 11:14 | disposition home or self-care (01) ==
LOC: HO.US 11:13
PROVIDERS: Visit Provider Internal Medicine
DX: Z13.89 Encounter for screening for other disorder (principal); E04.2 Nontoxic multinodular goiter
CPT/HCPCS: 76536

== ENCOUNTER 2022-06-12 13:18 | Outpatient (REF) | payer MEDICAID, SELFPAY | END 2022-06-12 13:19 | disposition home or self-care (01) | LOC: HO.HOSX 13:18 | PROVIDERS: Visit Provider Physician Assistant | DX: Z13.89 Encounter for screening for other disorder (principal) ==

== ENCOUNTER 2023-04-29 08:14 | Outpatient (AMB) | payer MEDICAID, SELFPAY ==
--- NOTE | 2023-04-29 08:32 | A.OFFVIS_ITS ---
Intake Intake Visit Reasons: New prob - B/L knee pain Intake Note: Teena garcia 42 year old female presents today for an evaluation of bilateral knee pain. Patient was last seen for her left knee and a PT order was placed. Currently is still having a lot of pain on her left knee. She states that her right knee causes the bottom of her foot go numb. Patient reports that PT didn't give her relief. Patient informed me that her left knee gets swollen as well. Allergies No Known Allergies [No Known Allergies*] Allergy (Verified 04/29/23 08:35) Medication List - Last Reconciled 04/29/23 by Marcos Jurado PA-C cholecalciferol (vitamin D3) 50 mcg PO DAILY 30 days lisinopril 5 mg PO DAILY metformin 500 mg PO BID HPI New prob - B/L knee pain HPI Details 42 yo female returns to the office today for bilat knee pain. The left knee is worse. At her last appt in 2021 she was ordered PT which she did not attend. She did try the knee brace which she only used once. She states the stairs are difficult, she cannot stand for long periods of time. She has a lot of pain at night. [facility] Medical History (Updated 04/29/23 @ 08:50 by Marcos Jurado PA-C) Patellofemoral arthritis of left knee High blood pressure Vitamin D deficiency Multinodular thyroid Diabetes Surgical History History of surgery History of hand surgery Hx of section Family History Father No problems noted. Mother Type 2 diabetes mellitus Social History Alcohol intake: unknown Patient Tobacco Use Status: Current everyday Tobacco user Tobacco use type: Cigarette Current occupational status: employed Current occupation: hotel Review of Systems Const All systems reviewed & are unremarkable except as noted in HPI and below Physical Exam Const General: cooperative and no acute distress Orientation/consciousness: patient oriented x3 Resp Effort & Inspection: normal respiratory effort and able to speak in complete sentences Cardio Peripheral pulses: Peripheral pulses 2+ throughout Neuro General: patient oriented x3 Extrem Other: Left knee skin intact, no erythema, she does have a moderate joint effusion. medial and lateral retropatellar tenderness present. ROM full with crepitus. Negative steinmans. No ligamentous laxity. NVI. Right knee skin intact, no erythema or joint effusion. Tenderness along the medial joint line. ROM full with crepitus. Negative steinmans. No ligamentous laxity. NVI. Office Procedures Joint Injection/Drain Joint Injection/Drain Details: 80 cc joint fluid asp left knee Primary Site: left knee Prep: site was prepped using aseptic technique and injection warnings given Injected: in the joint Approach Used: lateral parapatellar Procedure: The patient tolerated the procedure well Coding 95256 - Glenohumeral/Tronchanteric Bursa/Intraarticular Procedure code (CPT) selection complete Results Reviewed Results Reviewed: Xrays were obtained in the office today and personally reviewed by me show significant OA of the PF joint with midl oa the medial and lateral compartment. Assessment & Plan Assessment & Plan (1) Patellofemoral arthralgia of both knees: Code(s): M22.2X1 - Patellofemoral disorders, right knee; M22.2X2 - Patellofemoral disorders, left knee Plan: We discussed options today which include aspiration of the left knee which she would like to go forward with. We will not be injecting the left knee with s teroid given the unknown status of her blood sugar levels. She states she does not take her metformin. Left knee was aspirated of 80 cc of yellow joint fluid. I will order an MRI of the left knee given her joint effusion and inability to fully extend the knee. A prescription for Celebrex has been sent to the pharmacy and she will see me back once the scan is complete. Orders: Orders XR knee standing BI Today M25.561 - Pain in right knee, M25.562 - Pain in left knee XR knee RT 2V Today M25.569 - Pain in unspecified knee XR knee LT 2V Today M25.562 - Pain in left knee Coding Level of Care Code Est Pt Level 3 (19705) Diagnoses Patellofemoral arthralgia of both knees M22.2X1; M22.2X2 CPT Codes Coding - Joint 7: 69320 - Glenohumeral/Tronchanteric Bursa/Intraarticular ([id number])
== END 2023-04-29 09:32 | disposition home or self-care (01) ==
PROVIDERS: PCP Nurse Practitioner Primary Care; Visit Provider Physician Assistant
DX: M22.2X1 Patellofemoral disorders, right knee (principal); M22.2X2 Patellofemoral disorders, left knee
CPT/HCPCS: 20610; 99213

== ENCOUNTER 2023-04-29 09:35 | Outpatient (REF) | payer OTHER, SELFPAY ==
--- NOTE | ~2023-04-29 | XR_ITS ---
EXAMINATION: XR KNEE AP STANDING, LATERAL AND SUNRISE VIEWS BILATERAL KNEES CLINICAL INFORMATION: Pain in bilateral knees COMPARISON: 11/27/2021 bilateral knees, 10/20/2020 right knee. TECHNIQUE: AP bilateral standing view as well as lateral and sunrise views of the bilateral knees was obtained. FINDINGS: Right Knee: Small joint effusion. Small tricompartmental osteophytes. Moderate lateral compartment narrowing. Left Knee: Small tricompartmental osteophytes. Moderate joint effusion. Moderate medial joint space narrowing. XR/XR knee RT 2V IMPRESSION: Moderate degenerative changes in bilateral knees.
--- NOTE | ~2023-04-29 | XR_ITS ---
EXAMINATION: XR KNEE AP STANDING, LATERAL AND SUNRISE VIEWS BILATERAL KNEES CLINICAL INFORMATION: Pain in bilateral knees COMPARISON: 11/27/2021 bilateral knees, 10/20/2020 right knee. TECHNIQUE: AP bilateral standing view as well as lateral and sunrise views of the bilateral knees was obtained. FINDINGS: Right Knee: Small joint effusion. Small tricompartmental osteophytes. Moderate lateral compartment narrowing. Left Knee: Small tricompartmental osteophytes. Moderate joint effusion. Moderate medial joint space narrowing. XR/XR knee standing BI IMPRESSION: Moderate degenerative changes in bilateral knees.
--- NOTE | ~2023-04-29 | XR_ITS ---
EXAMINATION: XR KNEE AP STANDING, LATERAL AND SUNRISE VIEWS BILATERAL KNEES CLINICAL INFORMATION: Pain in bilateral knees COMPARISON: 11/27/2021 bilateral knees, 10/20/2020 right knee. TECHNIQUE: AP bilateral standing view as well as lateral and sunrise views of the bilateral knees was obtained. FINDINGS: Right Knee: Small joint effusion. Small tricompartmental osteophytes. Moderate lateral compartment narrowing. Left Knee: Small tricompartmental osteophytes. Moderate joint effusion. Moderate medial joint space narrowing. XR/XR knee LT 2V IMPRESSION: Moderate degenerative changes in bilateral knees.
== END 2023-04-29 09:36 | disposition home or self-care (01) ==
LOC: HO.HOSX 09:35
PROVIDERS: Visit Provider Physician Assistant
DX: M22.2X2 Patellofemoral disorders, left knee (principal); M22.2X1 Patellofemoral disorders, right knee; M25.561 Pain in right knee; M25.562 Pain in left knee; Z79.899 Other long term (current) drug therapy
CPT/HCPCS: 20610; 73560; 73565; 99212

== ENCOUNTER 2023-05-16 10:43 | Outpatient (REF) | payer MEDICAID, SELFPAY ==
[2023-05-16 11:47] LABS: Estimated Average Glucose 140 mg/dL; Hemoglobin A1c % 6.5 % (<6.0)
[2023-05-16 12:13] LABS: Anion Gap 11 (12-20); Blood Urea Nitrogen 11 mg/dL (9-16); Calcium 8.9 mg/dL (8.4-10.2); Carbon Dioxide 24 mmol/L (22-29); Chloride 108 mmol/L (96-108); Cholesterol 207 mg/dL (<200); Estimated Glomerular Filt Rate > 60; Glucose Random 190 mg/dL (60-115); HDL Cholesterol 43 mg/dL (>40); LDL Cholesterol Calculated 133 mg/dL (<100); Potassium 4.5 mmol/L (3.3-5.1); Sodium 138 mmol/L (135-145); Triglycerides 155 mg/dL (<150)
[2023-05-16 12:18] LABS: Microalbum/Creatinine Ratio Ur 170.5 ug/mg cr (<30)
[2023-05-16 12:39] LABS: HIV AB/AG Nonreactive (Nonreactive); HIV Num 1 0.07 S/CO (0.00-0.99); ~HepC Num1 0.22 S/CO (0.00-0.79); ~Hepatitis C Antibody Nonreactive (Nonreactive)
[2023-05-20 13:37] LABS: RPR Rapid Plasma Reagin NON-REACTIVE (NON-REACTIVE)
== END 2023-05-16 10:44 | disposition home or self-care (01) ==
LOC: HO.HHCL 10:43
PROVIDERS: Visit Provider Nurse Practitioner Primary Care
DX: Z11.3 Encounter for screening for infections with a predominantly sexual mode of transmission (principal); Z11.4 Encounter for screening for human immunodeficiency virus [HIV]; E11.21 Type 2 diabetes mellitus with diabetic nephropathy; E78.1 Pure hyperglyceridemia
CPT/HCPCS: 36415; 80048; 80061; 82043; 82570; 83036; 86592; 86803; 87389

== ENCOUNTER 2023-07-01 14:50 | Outpatient (REF) | payer MEDICAID, SELFPAY ==
--- NOTE | ~2023-07-01 | US_ITS ---
EXAMINATION: US THYROID CLINICAL INFORMATION: Thyroid nodule monitoring. COMPARISON: Thyroid ultrasound 08/30/2020 and 12/16/2017. TECHNIQUE: Linear transducer alva-scale and color Doppler examination with attention to the region of the thyroid. FINDINGS: SIZE: Measurements of the thyroid lobes and nodules are given in sagittal, anteroposterior and transverse dimensions respectively. Right Thyroid Lobe: 4.7 x 1.6 x 1.9 cm, volume 7.3 mL. Previously 5.0 x 1.9 x 1.8 cm, volume 8.9 mL. Parenchyma: The gland echotexture is homogeneous. Thyroid vascularity is normal. Left Thyroid Lobe: 4.4 x 1.4 x 1.6 cm, volume 5.1 mL. Previously 4.8 x 1.4 x 1.5 cm, volume 5.3 mL. Parenchyma: The gland echotexture is homogeneous. Thyroid vascularity is normal. Isthmus: 0.5 cm in maximum AP dimension. Previously 0.5 cm. Estimated total number of nodules greater than or equal to 1 cm: 0. Surveyor Hydrographic nodules are described as follows: 1. Location: Right superior. Size: 0.9 x 0.5 x 0.5 cm, volume 0.1 mL. Previously: 0.7 x 0.7 x 0.4 cm, volume 0.1 mL. Nodule characteristics: Composition: Spongiform (0). ACR TI-RADS total points: 0 Previous: 0 ACR TI-RADS category: 1 Previous: 1 2. Location: Right mid/lateral. Size: 0.3 x 0.2 x 0.3 cm, volume 0.01 mL. Previously: Not seen. Nodule characteristics: Composition: Spongiform (0). ACR TI-RADS total points: 0 ACR TI-RADS category: 1 3. Location: Right mid. Size: 0.3 x 0.2 x 0.3 cm, volume 0.1 mL. Previously: Not seen on the previous study. Nodule characteristics: Composition: Cystic(0). ACR TI-RADS total points: 0 ACR TI-RADS category: 1 4. Location: Right mid/lateral. Size: 0.4 x 0.2 x 0.2 cm, volume 0.1 mL. Previously: Not seen on the previous study. Nodule characteristics: Composition: Cystic(0). ACR TI-RADS total points: 0 ACR TI-RADS category: 1 NODES: . US/US thyroid IMPRESSION: Cystic and spongiform TR 1 thyroid nodules which do not meet criteria for follow-up, as detailed above ACR TI-RADS RECOMMENDATION REFERENCE: Ultrasound-guided fine-needle aspiration, follow up ultrasound, no further followup. * TR1 (0 point) and TR2 (2 points): No FNA or followup * TR3 (3 points): FNA if more than or equal to 2.5 cm in maximum dimension, follow up ultrasound in 1, 3 and 5 years if 1.5 to 2.4 cm in maximum dimension. * TR4 (4-6 points): FNA if more than or equal to 1.5 cm in maximum dimension, follow up ultrasound in 1, 2, 3 and 5 years if 1 to 1.4 cm in maximum dimension. * TR5 (more than or equal to 7 points): FNA if more than or equal to 1 cm in maximum dimension, follow up ultrasound every year for 5 years if 0.5 to 0.9 cm in maximum dimension. * TR3, TR4 or TR5 nodules that are below the size threshold for follow up receive no followup.
== END 2023-07-01 14:51 | disposition home or self-care (01) ==
LOC: HO.US 14:50
PROVIDERS: PCP Nurse Practitioner Primary Care; Visit Provider Internal Medicine Endocrinology, Diabetes & Metabolism
DX: E04.1 Nontoxic single thyroid nodule (principal)
CPT/HCPCS: 76536

== ENCOUNTER 2023-07-11 15:52 | Outpatient (REF) | payer MEDICAID, SELFPAY ==
--- NOTE | ~2023-07-11 | MR_ITS ---
EXAMINATION: MR KNEE WITHOUT CONTRAST, LEFT CLINICAL INFORMATION: Left knee pain and swelling. COMPARISON: Left knee radiographs dated 04/29/2023. TECHNIQUE: MRI of the knee without contrast was performed using routine sequences on a high-field scanner. FINDINGS: MENISCI: Medial Meniscus: Intact Lateral Meniscus: Attenuation and irregularity of the anterior horn and root, consistent with complex tearing. Complex parameniscal cyst along the anterior aspect of the anterior horn, measuring up to 1.9 cm in ML dimension. Oblique inner margin/femoral articular surface tearing extends to the laterally extruded meniscal body. Inner margin fraying/tearing of the posterior horn and root. LIGAMENTS: Cruciate: Intact Collateral: Mild edema adjacent to the medial collateral ligament, consistent with a grade 1 sprain. Intact fibular collateral ligament. EXTENSOR MECHANISM: Intact quadriceps and patellar tendons. Normal patellofemoral alignment. Mild edema centrally within Hoffa's fat pad. ARTICULAR CARTILAGE/BONE: Patellofemoral Compartment: Central and medial trochlear articular cartilage signal heterogeneity. Small marginal osteophytes. Medial Compartment: Weightbearing articular cartilage thinning with signal heterogeneity and surface irregularity, and areas of near full-thickness loss. Marginal osteophytes. Lateral Compartment: Full-thickness posterior weightbearing lateral femoral condyle and lateral tibial plateau articular cartilage loss, with minimal bony remodeling as well as mild subchondral cystic change. Marginal osteophytes. JOINT FLUID AND BURSAE: Moderate joint effusion with synovitis. Multiple areas of focal synovitis versus loose bodies, within the superior joint space, measuring up to 1.0 cm. MR/MR knee LT wo con IMPRESSION: 1. Complex tearing of the lateral meniscus anterior horn and root with an anterior parameniscal cyst, measuring up to 1.9 cm. Oblique inner margin/femoral articular surface tearing extending to the laterally extruded meniscal body. Inner margin fraying/tearing of the posterior horn and root. 2. Probable grade 1 sprain of the medial collateral ligament. 3. Severe lateral, as well as [id number], medial and patellofemoral compartment osteoarthritis. Moderate joint effusion with synovitis. Multiple areas of focal synovitis versus loose bodies within the superior joint space, measuring up to 1.0 cm.
== END 2023-07-11 15:53 | disposition home or self-care (01) ==
LOC: HO.MRI 15:52
PROVIDERS: PCP Nurse Practitioner Primary Care; Visit Provider Physician Assistant
DX: M17.12 Unilateral primary osteoarthritis, left knee (principal)
CPT/HCPCS: 73721

== ENCOUNTER 2023-08-01 14:35 | Outpatient (AMB) | payer MEDICAID, SELFPAY ==
--- NOTE | 2023-08-01 14:44 | MHC.OFFVIS ---
Intake Visit Reasons: discuss MRI left knee ? surgery Intake Note: Teena is a 43 year old female who presents today for an MRI review of left knee. MR/MR knee LT wo con IMPRESSION: 1. Complex tearing of the lateral meniscus anterior horn and root with an anterior parameniscal cyst, measuring up to 1.9 cm. Oblique inner margin/femoral articular surface tearing extending to the laterally extruded meniscal body. Inner margin fraying/tearing of the posterior horn and root. 2. Probable grade 1 sprain of the medial collateral ligament. 3. Severe lateral, as well as [id number], medial and patellofemoral compartment osteoarthritis. Moderate joint effusion with synovitis. Multiple areas of focal synovitis versus loose bodies within the superior joint space, measuring up to 1.0 cm. Allergies No Known Allergies [No Known Allergies*] Allergy (Verified 08/01/23 14:47) HPI HPI discuss MRI left knee ? surgery: Details: Teena is a 43 year old female who presents today for an MRI review of left knee. She has had longstanding left knee pain. She walks with a limp and feels that the quality of her life is diminished. She has had injections which have not been particularly helpful and comes in today after an MRI was obtained. Almost all of her pain is over the lateral aspect of the left knee. [facility] Medical History Patellofemoral arthritis of left knee High blood pressure Vitamin D deficiency Multinodular thyroid Diabetes Surgical History History of surgery History of hand surgery Hx of section Family History Father No problems noted. Mother Type 2 diabetes mellitus Social History Alcohol intake: unknown Patient Tobacco Use Status: Current everyday Tobacco user Tobacco use type: Cigarette Current occupational status: employed Current occupation: hotel Physical Exam Const General: cooperative, healthy appearing, no acute distress, well developed and alert HEENT Head: Yes normal to inspection, Yes normocephalic and Yes atraumatic Mouth: moist mucous membranes Eyes General: appearance normal, both eyes and all related structures EOM: EOMs intact bilaterally Chest Other: no audible wheezing. Resp Other: No audible wheezing Effort & Inspection: normal respiratory effort Cardio Other: Radial pulse palpable with no rythmic abnormalities Back/Spine/Pelvis Cervical Spine: normal cervical lordosis Skin General skin exam: no rashes or lesions noted Neuro General: no focal motor deficits Extrem Other: Left knee with moderate valgus malalignment and tenderness to palpation over the lateral. Psych Appearance: grossly normal and well kempt Mental Status: mental status grossly normal Speech and movement: Normal speech and movement present Affect: normal affect Attitude: cooperative Results Reviewed Results Reviewed: I personally reviewed relevant radiographs. Valgus malalignment left knee with tricompartmental osteoarthritis affecting the lateral compartment most severely I personally reviewed the MR images. Complex tearing of the lateral meniscus anterior horn and root with an anterior parameniscal cyst, measuring up to 1.9 cm. Oblique inner margin/femoral articular surface tearing extending to the laterally extruded meniscal body. Inner margin fraying/tearing of the posterior horn and root. 2. Probable grade 1 sprain of the medial collateral ligament. 3. Severe lateral, as well as [id number], medial and patellofemoral compartment osteoarthritis. Moderate joint effusion with synovitis. Multiple areas of focal synovitis versus loose bodies within the superior joint space, measuring up to 1.0 cm. Assessment & Plan Assessment & Plan (1) Localized osteoarthritis of left knee: Code(s): M17.12 - Unilateral primary osteoarthritis, left knee Category: Medical Plan: This is a 43-year-old woman with left knee valgus pattern osteoarthritis. This is severe and the quality of her life is diminished as well as her ability to ambulate comfortably. She is diabetic and a heavy smoker. I do think, at some point in time, she would benefit from arthroplasty but she needs to stop smoking. Her most recent hemoglobin A1c was 6.5. I introduced her to our nurse navigator and discussed the details of knee replacement. She is very young but nothing has worked and this has been going on for some time and she is quite limited. I discussed the risks, benefits and alternatives including, but not limited to, the risk of infection, aseptic loosening, stiffness, pain, need for further surgery. Is what I also discussed the medical complications. I am not sure she can stop smoking but if she does I think she would be a reasonable candidate for arthroplasty . Coding Level of Care Code Est Pt Level 4 (22559) Diagnoses Localized osteoarthritis of left knee M17.12
== END 2023-08-01 15:27 | disposition home or self-care (01) ==
PROVIDERS: PCP Nurse Practitioner Primary Care; Referring Provider Nurse Practitioner Primary Care; Visit Provider Orthopaedic Surgery
DX: M17.12 Unilateral primary osteoarthritis, left knee (principal); S83.272A Complex tear of lateral meniscus, current injury, left knee, initial encounter
CPT/HCPCS: 99214

== ENCOUNTER → 2023-08-01 14:35 | Outpatient (BNVA) | payer MEDICAID, SELFPAY | PROVIDERS: PCP Nurse Practitioner Primary Care; Visit Provider Orthopaedic Surgery | DX: M17.12 Unilateral primary osteoarthritis, left knee (principal) | CPT/HCPCS: 99212 ==

== ENCOUNTER 2023-12-24 12:52 | Outpatient (REF) | payer MEDICAID, SELFPAY ==
--- NOTE | ~2023-12-24 | MM_ITS ---
EXAMINATION: MM DIAGNOSTIC DIGITAL BREAST TOMOSYNTHESIS, BILATERAL US BREAST LIMITED, LEFT CLINICAL INFORMATION: 43-year-old female, complaining of left breast lump 9:00 axis middle depth. Due for yearly. COMPARISON: Mammography: 07/17/2021, 06/04/2021, 05/23/2021 (all from [place]). TECHNIQUE: Digital breast tomosynthesis is performed in both the craniocaudal and mediolateral oblique views along with computer-aided detection (CAD). Synthesized 2D images are generated from the tomosynthesis. In addition, a full field left 3-D mediolateral view was also obtained. FINDINGS: There are scattered areas of fibroglandular density (ACR BI-RADS breast composition Category b). -There are 2 intramammary lymph nodes in the axillary tail regions of of both breasts, unchanged from 2021. -The area of palpable concern at 9:00, mid depth has been marked by BB marker by the technologist. Directly subjacent to this region is an irregular marginated fat density focus best seen on the MLO projection, with a surrounding rim of isodense tissue. This appearance is suggestive of fat necrosis. The patient does report history of injury to the left breast (Details unknown due to language barrier). This will be evaluated with ultrasound. Otherwise, no suspicious masses, suspicious grouped calcifications, or areas of architectural distortion noted in either breast. The overall parenchymal pattern is unchanged from 2021. No skin or axillary abnormalities. ULTRASOUND: CLINICAL INFORMATION: Palpable area of concern 9:00 axis left breast middle depth. COMPARISON: No prior available. TECHNIQUE: Targeted sonographic evaluation was performed using a high frequency linear transducer. Attention was given to the left breast 8-11 o'clock axis to include the area of palpable concern. Selected archived documentation. FINDINGS: LEFT BREAST: -In the approximate 9:00 axis left breast, correlating with the area of palpable concern, there are several grouped echogenic fatty lobules, with adjacent small rounded hypoechoic/cystic areas which are surrounded by echogenic rims, with no posterior features. Overall, the findings have a fairly classic appearance of a region of evolving fat necrosis. The patient does report a recent injury. Otherwise, no additional abnormal findings are noted in this region. MM/MM tomosynthesis diagnostic BI IMPRESSION: -There are no findings suspicious for malignancy in either breast. -Findings in the 9:00 axis left breast mid depth, correlating with the palpable foci, with appearance highly favored to represent evolving fat necrosis. This is probably benign, and SIX-MONTH FOLLOW-UP TARGETED LEFT BREAST ULTRASOUND recommended to ensure stability/appropriate evolution. -There are additional stable benign findings in both breasts. OVERALL ASSESSMENT: Mammography: BI-RADS 3 - Probably benign finding(s) - 6 month follow-up suggested Ultrasound: BI-RADS 3 - Probably benign finding(s) - 6 month follow-up suggested RECOMMENDATION: 6 Month F/U Electronically signed by: Osbaldo Mcmahan MD 12/24/2023 02:58 PM EDT
== END 2023-12-24 12:53 | disposition home or self-care (01) ==
LOC: HO.MAMMO 12:52
PROVIDERS: PCP Nurse Practitioner Primary Care; Visit Provider Nurse Practitioner Primary Care
DX: N63.24 Unspecified lump in the left breast, lower inner quadrant (principal)
CPT/HCPCS: 76642; 77062; 77066

== ENCOUNTER → 2023-12-24 13:00 | Outpatient (BNV) | payer MEDICAID, SELFPAY | PROVIDERS: PCP Nurse Practitioner Primary Care; Visit Provider Radiology Diagnostic Radiology | DX: N63.25 Unspecified lump in the left breast, overlapping quadrants (principal); N64.1 Fat necrosis of breast | CPT/HCPCS: 76642; 77062; 77066 ==

== ENCOUNTER 2024-01-13 11:09 | Outpatient (AMB) | payer MEDICAID, SELFPAY ==
--- NOTE | 2024-01-13 11:11 | MHC.OFFVIS ---
Intake Visit Reasons: OV discuss surgery for lt knee Intake Note: Teena is a 43 year old romansh speaking female who presents today for a follow up of her left knee valgus pattern osteoarthritis. Hx of DM and heavy smoker. She has had longstanding left knee pain. She walks with a limp and feels that the quality of her life is diminished. She has had injections which have not been particularly helpful and comes in today after an MRI was obtained. Almost all of her pain is over the lateral aspect of the left knee. At her last visit in July TKA was discussed, she would like to re-discuss surgical planning today. Allergies No Known Allergies [No Known Allergies*] Allergy (Verified 01/13/24 11:12) HPI HPI OV discuss surgery for lt knee: Details: Teena is a 43 year old romansh speaking female who presents today for a follow up of her left knee valgus pattern osteoarthritis. She has had longstanding left knee pain. She walks with a limp and feels that the quality of her life is diminished. She has had injections which have not been particularly helpful and comes in today after an MRI was obtained. Almost all of her pain is over the lateral aspect of the left knee. At her last visit in July TKA was discussed, she would like to re-discuss surgical planning today. [facility] Medical History Patellofemoral arthritis of left knee High blood pressure Vitamin D deficiency Multinodular thyroid Diabetes Surgical History History of surgery History of hand surgery Hx of section Family History Father No problems noted. Mother Type 2 diabetes mellitus Social History Alcohol intake: unknown Patient Tobacco Use Status: Current everyday Tobacco user Tobacco use type: Cigarette Current occupational status: employed Current occupation: hotel Physical Exam Extrem Other: Mild valgus alignment left greater than right. Moderate to large left knee effusion. Results Reviewed Results Reviewed: Radiographs and MRI reviewed. Her left knee has moderate to severe degenerative changes of the lateral compartment predominantly. Assessment & Plan Assessment & Plan (1) Localized osteoarthritis of left knee: Code(s): M17.12 - Unilateral primary osteoarthritis, left knee Category: Medical Plan: This is a 43-year-old woman with valgus pattern osteoarthritis of the left knee. She has been unable to get through her daily life without severe pain and swelling and this has been present for over 2 years. She has failed conservative management including physical therapy, injections and NSAIDs. At last visit she was still smoking. She states she has stopped smoking and I think it is reasonable to plan surgery. I had her discuss this with our nurse navigator and we will proceed forward accordingly. Coding Level of Care Code Est Pt Level 4 (22410) Diagnoses Localized osteoarthritis of left knee M17.12
== END 2024-01-13 12:05 | disposition home or self-care (01) ==
PROVIDERS: PCP Nurse Practitioner Primary Care; Visit Provider Orthopaedic Surgery
DX: M17.12 Unilateral primary osteoarthritis, left knee (principal)
CPT/HCPCS: 99214

== ENCOUNTER → 2024-01-13 11:09 | Outpatient (BNVA) | payer MEDICAID, SELFPAY | PROVIDERS: PCP Nurse Practitioner Primary Care; Visit Provider Orthopaedic Surgery | DX: M17.12 Unilateral primary osteoarthritis, left knee (principal) | CPT/HCPCS: 99212 ==

== ENCOUNTER 2024-02-10 18:01 | Outpatient (REF) | payer MEDICAID, SELFPAY ==
[2024-02-11 11:46] LABS: Bacterial Vaginosis PCR POSITIVE (Negative); Candida Group PCR DETECTED (Not Detect); Candida glab krusei PCR NOT DETECTED (Not Detect); Trichomonas vaginalis PCR NOT DETECTED (Not Detect)
[2024-02-11 12:18] LABS: CT PCR NOT DETECTED (Not Detect.); NG PCR NOT DETECTED (Not Detect.)
== END 2024-02-10 18:02 | disposition home or self-care (01) ==
LOC: HO.HHCLNP 18:01
PROVIDERS: Visit Provider Internal Medicine
DX: N89.8 Other specified noninflammatory disorders of vagina (principal)
CPT/HCPCS: 0352U; 87086; 87147; 87491; 87591

== ENCOUNTER 2024-06-11 10:36 | Outpatient (REF) | payer MEDICAID, SELFPAY ==
[2024-06-11 13:14] LABS: MANUAL DIFF FLAG NO
[2024-06-11 13:24] LABS: Basophils Absolute Auto 0.1 X10*3/uL (0.0-0.2); Basophils Percent Auto 0.8 % (0-2); Eosinophils Absolute Auto 0.2 X10*3/uL (0.0-0.4); Eosinophils Percent Auto 2.4 % (0-4); Hematocrit 40.6 % (37.0-47.0); Hemoglobin 12.4 g/dl (12.0-16.0); Imm Gran Abs Auto 0.02 X10*3/uL (0.00-0.03); Imm Gran Pct Auto 0.2 % (0.0-0.4); Lymphocytes Absolute Auto 2.1 X10*3/uL (1.2-4.9); Lymphocytes Percent Auto 25.5 % (20-40); Mean Corpuscular HGB Conc 30.5 g/dl (31.0-35.0); Mean Corpuscular Hemoglobin 22.3 pg (27.0-33.0); Mean Corpuscular Volume 72.9 fL (80.0-98.0); Mean Platelet Volume 10.7 fL (9.4-12.3); Monocytes Absolute Auto 0.5 X10*3/uL (0.1-1.2); Monocytes Percent Auto 5.6 % (2-11); Neutrophils Absolute Auto 5.4 x10*3/uL (2.0-8.3); Neutrophils Percent Auto 65.5 % (45-73); Platelet Count 199 X10*3/uL (160-400); Red Blood Count 5.57 X10*6/uL (4.20-5.50); Red Cell Distribution Width 20.8 % (11.0-16.0); White Blood Count 8.2 X10*3/uL (4.8-10.8)
[2024-06-11 13:36] LABS: Estimated Average Glucose 146 mg/dL; Hemoglobin A1c % 6.7 % (<6.0)
[2024-06-11 14:30] LABS: Alanine Aminotransferase 22 U/L (0-31); Albumin Level 4.1 g/dL (3.5-5.0); Alkaline Phosphatase 91 U/L (39-117); Anion Gap 11 (12-20); Aspartate Amino Transferase 19 U/L (5-31); Bilirubin Direct 0.1 mg/dL (0.0-0.5); Bilirubin Total 0.4 mg/dL (0.0-1.0); Blood Urea Nitrogen 13 mg/dL (9-16); Calcium 9.2 mg/dL (8.4-10.2); Carbon Dioxide 23 mmol/L (22-29); Chloride 109 mmol/L (96-108); Cholesterol 183 mg/dL (<200); Estimated Glomerular Filt Rate > 60; Glucose Random 104 mg/dL (60-115); HDL Cholesterol 37 mg/dL (>40); LDL Cholesterol Calculated 104 mg/dL (<100); Sodium 139 mmol/L (135-145); Total Protein 7.5 g/dL (6.5-8.0); Triglycerides 213 mg/dL (<150)
== END 2024-06-11 10:37 | disposition home or self-care (01) ==
LOC: HO.HHCL 10:36
PROVIDERS: Nurse Practitioner Family; Visit Provider Nurse Practitioner Primary Care
DX: Z01.810 Encounter for preprocedural cardiovascular examination (principal); E66.811 Obesity, class 1; Z68.32 Body mass index [BMI] 32.0-32.9, adult; E11.69 Type 2 diabetes mellitus with other specified complication; E78.5 Hyperlipidemia, unspecified
CPT/HCPCS: 36415; 80053; 80061; 82248; 83036; 85025

== ENCOUNTER 2024-12-16 11:41 | Emergency (ER) | payer MEDICAID, SELFPAY ==
--- NOTE | ~2024-12-16 | XR_ITS ---
EXAMINATION: XR CHEST 2 VIEWS HISTORY: dyspnea COMPARISON: Comparison is made with the prior examination dated 10/20/2020. FINDINGS: PA and lateral views of the chest are submitted. The lungs are expanded and clear. There is no pleural effusion, pneumothorax, or pulmonary vascular congestion. The heart is normal in size. There is degenerative disc disease of the spine. XR/XR chest 2V IMPRESSION: No acute cardiopulmonary abnormality. Electronically signed by: Nicho Bustamante MD 12/16/2024 12:50 PM EDT
--- NOTE | ~2024-12-16 | US_ITS ---
EXAMINATION: US ABDOMEN LIMITED CLINICAL INFORMATION: Right upper quadrant abdominal pain.. COMPARISON: None available. TECHNIQUE: Real-time imaging of the gallbladder and bile ducts performed. FINDINGS: GALLBLADDER: The gallbladder is physiologically distended without evidence of stones, sludge, polyps, wall thickening or pericholecystic fluid. COMMON BILE DUCT: Normal in caliber measuring 0.6 cm in diameter. FREE FLUID: None. US/US abdomen limited IMPRESSION: Normal gallbladder and bile ducts. Electronically signed by: Osbaldo Mcmahan MD 12/16/2024 04:06 PM EDT
--- NOTE | ~2024-12-16 | CT_ITS ---
CLINICAL HISTORY: right sided pain, tachycardia CT angiography chest with contrast. 3D Postprocessing. Comparison: None provided Findings: The heart size is normal. RV/LV ratio is normal. Unremarkable thoracic aorta and great vessels. No aneurysm. No acute pulmonary embolus. The visualized thyroid and mediastinum are unremarkable. There is right lower lobe consolidation, possible pneumonia or subsegmental atelectasis. The upper abdomen is unremarkable. The bones are intact. IMPRESSION: 1. No pulmonary emboli. 2. Right lower lobe consolidation, differential considerations noted This document has been electronically signed by: Zaid Ford MD on 12/16/2024 18:09:33
--- NOTE | ~2024-12-16 | CT_ITS ---
CLINICAL HISTORY: right sided pain, WBC 14,000 CT abdomen and pelvis with contrast Comparison: None provided Findings: There is right lower lobe consolidation, possible pneumonia or subsegmental atelectasis. There is a focal right lower lobe 3.7 x 2.7 cm mass. Unremarkable gallbladder and solid organs. No urolithiasis. No bowel obstruction, pneumoperitoneum, or pneumatosis. There is a heterogeneous right adnexal 4.3 x 3.3 cm mass, incompletely evaluated on the current study. Appropriate further evaluation possibly beginning with pelvic ultrasound, recommended. Pelvic contents otherwise unremarkable. Normal appendix. The bones are intact. IMPRESSION: 1. Right lower lobe consolidation and mass, possible pneumonia, atelectasis, or neoplasm. Short-term follow-up with possible PET-CT, recommended. 2. Right adnexal mass, possible related to ovary. Appropriate follow-up possibly beginning with pelvic ultrasound, recommended. This document has been electronically signed by: Zaid Ford MD on 12/16/2024 18:13:55
--- NOTE | 2024-12-16 11:45 | ECG_ITS ---
Test Reason : CP Blood Pressure : */* mmHG Vent. Rate : 109 BPM Atrial Rate : 109 BPM P-R Int : 128 ms QRS Dur : 78 ms QT Int : 328 ms P-R-T Axes : 68 7 -56 degrees QTcB Int : 441 ms Sinus tachycardia Nonspecific ST and T wave abnormality Abnormal ECG When compared with ECG of 09-Sep-2021 17:04, No significant change was found Referred By: Generic ED Physician Electronically Signed By: GOGO HOFFMAN
[2024-12-16 11:49] VITALS: BP 106/71; PULSE 115; O2SAT 95
[2024-12-16 11:56] VITALS: BP 125/75; PULSE 110; RESP 16; TEMP 37.1; O2SAT 95; BMI 29.6
--- NOTE | 2024-12-16 12:24 | ED.GENADULT ---
HPI - General Adult General Chief complaint: Chest Pain Stated complaint: CP PER EMS Time Seen by Provider: 12/16/24 12:24 History of Present Illness ED Provider: Stephane ALVARES narrative: The patient is a 44-year-old woman who was a smoker. She comes to the emergency room because of right upper quadrant abdominal pain that started yesterday. She says that this did not occur in relation to a meal. She feels it radiates to her back. The pain has been persistent. It is worse when she takes a deep breath. She also says that she is a smoker and has a chronic cough. She has not had any fever, sweats, chills. No pain or swelling in her legs. No nausea or vomiting. The patient reports an unintentional weight loss of about 20 lb over the last month. Related Data Home Medications ?Medication ?Instructions ?Recorded ?Confirmed metformin 500 mg tablet 500 mg PO BID 09/08/20 04/29/23 lisinopril 5 mg tablet 5 mg PO DAILY 11/27/21 04/29/23 Previous Rx's ?Medication ?Instructions ?Recorded cholecalciferol (vitamin D3) 50 50 mcg PO DAILY 30 days #30 caps 10/24/20 mcg (2,000 unit) capsule walker #1 ea 02/18/24 acetaminophen 500 mg capsule 1,000 mg (2 x 500 mg) PO Q8H PRN 12/16/24 fever or pain #14 caps azithromycin 250 mg tablet 250 mg PO DAILY 4 days #4 tabs 12/16/24 cefpodoxime 200 mg tablet 200 mg PO BID #14 tabs 12/16/24 ibuprofen 400 mg tablet 400 mg PO Q6H PRN pain #14 tabs 12/16/24 Allergies Allergy/AdvReac Type Severity Reaction Status Date / Time No Known Allergies Allergy Verified 12/16/24 12:10 Review of Systems Review of Systems: Yes all other systems are reviewed and are negative [facility] Past Medical History Medical History Patellofemoral arthritis of left knee High blood pressure Vitamin D deficiency Multinodular thyroid Diabetes Surgical History History of surgery History of hand surgery Hx of section Family History Family History Father No problems noted. Mother Type 2 diabetes mellitus Social History Social History Alcohol intake: unknown Patient Tobacco Use Status: Current everyday Tobacco user Tobacco use type: Cigarette Current occupational status: employed Current occupation: [employer] Physical Exam ED Vital Signs: Vital Signs - 24 hr 12/16/24 11:56 12/16/24 12:27 12/16/24 14:47 Temperature 98.8 F 99.6 F 98.4 F Pulse Rate 110 H 112 H 103 H Respiratory Rate 16 21 H 26 H Blood Pressure 125/75 126/75 133/77 Pulse Oximetry 95 94 93 Oxygen Delivery Method Room Air Room Air Room Air 12/16/24 18:20 12/16/24 18:54 Temperature 98 F 98 F Pulse Rate 107 H 107 H Respiratory Rate 20 20 Blood Pressure 128/80 128/80 Pulse Oximetry 96 96 Oxygen Delivery Method Room Air Room Air BMI result Body Mass Index 29.6 Const Other: The patient is a 44-year-old woman who looks somewhat chronically ill and somewhat older than her age. She does not seem obviously acutely ill. She was cheerful, pleasant, cooperative. No signs of shortness of breath or obvious discomfort. Orientation/consciousness: patient oriented x3 HENMT Other: The face is symmetrical. ?Mucous membranes moist. Eyes Other: Pupils are round equal, conjunctivae are clear, extraocular movements intact Neck Neck: Yes normal visual inspection and Yes full ROM Resp Effort & Inspection: normal respiratory effort Auscultation: clear to auscultation bilaterally Cardio Rate: tachycardic Rhythm: regular rhythm Heart sounds: S1 normal heart sound present and S2 normal heart sound present GI Other: Abdomen was soft. There seemed to be some right upper quadrant tenderness but no rebound or guarding. No definite Grant's sign. Skin Other: The skin is dry and unremarkable Neuro General: patient oriented x3, tone normal, moves all extremities, no focal motor deficits and CN's II-XI intact bilaterally Extrem Other: There is no calf swelling or tenderness. No asymmetry. No peripheral edema. Medications Administered Discontinued Medications Generic Name Dose Route Start Last Admin Trade Name Freq PRN Reason Stop Dose Admin Azithromycin 500 mg 12/16/24 18:43 12/16/24 18:53 Azithromycin 500 Mg Tablet PO 12/16/24 18:44 500 mg ONCE ONE Administration Ceftriaxone Sodium 2 gm 12/16/24 18:37 12/16/24 18:44 Ceftriaxone Sodium 2 Gm Vial IVPUSH 12/16/24 18:38 2 gm ONCE ONE Administration Sodium Chloride 1,000 mls @ 999 mls/hr 12/16/24 12:45 12/16/24 17:48 Ns IV 12/16/24 13:45 Infused .Q1H1M ANTONIO Infusion Lactated Ringer's 1,000 mls @ 999 mls/hr 12/16/24 15:45 12/16/24 18:44 Lr IV 12/16/24 16:45 Infused .Q1H1M ANTONIO Infusion Iohexol 100 ml 12/16/24 17:03 12/16/24 17:03 Iohexol 350 Mg/Ml 100 Ml Infus..Btl IV 12/16/24 17:04 85 ml ONCE ONE Administration Ketorolac Tromethamine 15 mg 12/16/24 12:37 12/16/24 13:17 Ketorolac Tromethamine 15 Mg/Ml Vial IVPUSH 12/16/24 12:38 15 mg ONCE ONE Administration Medical Decision Making Medical Decision Making [facility] Narrative: The patient is a 44-year-old female who was a smoker who presents with a 1 day history of right upper quadrant abdominal pain that his hard to distinguish from right lower chest pain. She says it radiates to her back. She reports a chronic cough that she attributes to smoking but she does not really seemed to be describing significant amount of new coughing and she denies any fever. She had some mild right upper quadrant tenderness on exam. She is afebrile [place] [address]. LFTs are normal. Two-view chest x-ray was read as clear. I obtained an ultrasound of her gallbladder given her description of the of the pain. The ultrasound was negative. Since the pain is somewhat pleuritic I did a D-dimer that was normal. CRP is elevated at 12.35. Despite the clear chest x-ray, normal D-dimer, and the negative ultrasound of the gallbladder the patient remained tachycardic despite fluids and I continued to have some sense that some other significant process was at work. I therefore ordered a CT pulmonary angiogram of the chest and also a CT of the abdomen and pelvis. The chest CT confirms that there are no pulmonary embolism but there were findings potentially consistent with a right lower lobe infiltrate. The CT of the abdomen shows no the appendicitis or other acute intra-abdominal surgical process but there is a right adnexal mass. Clinically I did not have suspicion for ovarian torsion. The patient was in the emergency room for several hours and was feeling considerably better and also feeling considerably hungry and eager to be discharged. She will be started on antibiotics for a possible pneumonia. She also was advised that she has a right adnexal mass that will need to be evaluated with the an outpatient pelvic ultrasound. She received 2 g of IV ceftriaxone in the emergency department and 500 mg of oral azithromycin. She will be discharged with a prescriptions for cefpodoxime and azithromycin and should contact your PCP in the morning for a follow up appointment for her symptoms and also to arrange the outpatient ultrasound. She should return to the ER if worse. Lab Data 12/16/24 12:21 12/16/24 12:21 Labs: Lab Results 12/16/24 12/16/24 12/16/24 Range/Units 12:13 12:21 13:28 WBC 14.3 H (4.8-10.8) X10*3/uL RBC 5.83 H (4.20-5.50) X10*6/uL Hgb 13.5 (12.0-16.0) g/dl Hct 41.8 (37.0-47.0) % MCV 71.7 L (80.0-98.0) fL MCH 23.2 L (27.0-33.0) pg MCHC 32.3 (31.0-35.0) g/dl RDW 17.2 H (11.0-16.0) % Plt Count 126 L D (160-400) X10*3/uL MPV TNP Immature Gran % (Auto) 0.4 (0.0-0.4) % Neut % (Auto) 83.7 H (45-73) % Lymph % (Auto) 9.4 L (20-40) % [place] % (Auto) 6.0 (2-11) % Eos % (Auto) 0.2 (0-4) % Baso % (Auto) 0.3 (0-2) % Lymph # (Auto) 1.4 (1.2-4.9) X10*3/uL [place] # (Auto) 0.9 (0.1-1.2) X10*3/uL Eos # (Auto) 0.0 (0.0-0.4) X10*3/uL Baso # (Auto) 0.0 (0.0-0.2) X10*3/uL Abs Immat Gran (auto) 0.06 H (0.00-0.03) X10*3/uL Absolute Neuts (auto) 12.0 H (2.0-8.3) x10*3/uL Absolute Nucleated RBC 0.000 (0.0-0.012) X10*3/uL Nucleated RBC % (auto) 0.0 (0.0-0.2) /100WBC Hold Purple Top SEE NOTE PT 13.1 H (10.9-12.4) SEC INR 1.1 (0.9-1.1) D-Dimer High Sensitivty 159 NG/ML Sodium 135 (135-145) mmol/L Potassium 3.6 (3.3-5.1) mmol/L Chloride 100 (96-108) mmol/L Carbon Dioxide 24 (22-29) mmol/L Anion Gap 15 (12-20) BUN 7 L (9-16) mg/dL Creatinine 0.60 (0.5-1.4) mg/dL Estim Creat Clear Calc 131.8 Estimated GFR > 60 Random Glucose 361 H* (60-115) mg/dL Lactic Acid 1.3 (0.5-2.0) mmol/L Calcium 9.3 (8.4-10.2) mg/dL Magnesium 1.6 (1.6-2.6) mg/dL Total Bilirubin 0.5 (0.0-1.0) mg/dL Direct Bilirubin 0.2 (0.0-0.5) mg/dL AST 15 (5-31) U/L ALT 14 (0-31) U/L Alkaline Phosphatase 129 H (39-117) U/L Troponin I High Sens 3.7 (<3.5-17.0) ng/L C-Reactive Protein 12.35 H (< or = 0.50) mg/dL Total Protein 7.3 (6.5-8.0) g/dL Albumin 4.2 (3.5-5.0) g/dL Independent Interpretation I performed an independent interpretation of an: EKG Interpretation: EKG at 1200 shows sinus tachycardia at 109 beats per minute. Nonspecific ST and T-wave abnormalities are present. Compared to previous EKG no significant change. Discharge Plan Discharge Clinical Impression: Right lower lobe pneumonia, Adnexal mass Patient Disposition: Home, Self-Care Additional Instructions: The CAT scan of your chest shows that you have a pneumonia. You have been started on antibiotics for this. You received your 1st doses of antibiotics in the emergency room here this evening. Please start both of the new antibiotics in the morning. Tomorrow morning please take your 1st dose of cefpodoxime. After that please take it 2 times a day, approximately every 12 hours. Tomorrow morning please take your next dose of azithromycin. Azithromycin is only taken once a day. You may use ibuprofen and acetaminophen as needed for fever. Drink a lot of fluids. Please call your regular doctor's office in the morning for a follow up appointment. Your CAT scan shows that there seems to be an enlargement in the region of your right ovary. This will need to be evaluated by an ultrasound. This may be done as an outpatient through your primary care doctor. Please talk to your primary care doctor's office tomorrow to arrange this follow up ultrasound and also to check on your pneumonia. If you feel significantly worse please return to the emergency department. Prescriptions: New cefpodoxime 200 mg tablet 200 mg PO BID Qty: 14 0RF Rx Instructions: must administer with a meal/food azithromycin 250 mg tablet 250 mg PO DAILY 4 Days Qty: 4 0RF Rx Instructions: start on day 2 of therapy ibuprofen 400 mg tablet 400 mg PO Q6H PRN (Reason: pain) Qty: 14 0RF acetaminophen 500 mg capsule 1,000 mg PO Q8H PRN (Reason: fever or pain) Qty: 14 0RF No Action cholecalciferol (vitamin D3) 50 mcg (2,000 unit) capsule 50 mcg PO DAILY 30 Days Qty: 30 11RF (SHELBY) jaison Domingo See Rx Instructions .MEDSUPPLY Qty: 1 0RF Rx Instructions: Folding Front wheeled walker metformin 500 mg tablet 500 mg PO BID lisinopril 5 mg tablet 5 mg PO DAILY Referrals: Fiorella Calvo [facility] [employer] CL[employer] [Primary Care Provider, Internal Medicine] Interventions: ED Discharge Assessment Last Done: 12/16/24 18:54 Discharge Date/Time: 12/16/24 18:57 Print Language: [place]ij[place]
[2024-12-16 12:27] VITALS: BP 126/75; PULSE 112; RESP 21; TEMP 37.6; O2SAT 94
[2024-12-16 12:28] LABS: MANUAL DIFF FLAG NO
[2024-12-16 12:35] LABS: Hematocrit 41.8 % (37.0-47.0); Hemoglobin 13.5 g/dl (12.0-16.0); Imm Gran Abs Auto 0.06 X10*3/uL (0.00-0.03); Imm Gran Pct Auto 0.4 % (0.0-0.4); Lymphocytes Absolute Auto 1.4 X10*3/uL (1.2-4.9); Mean Corpuscular HGB Conc 32.3 g/dl (31.0-35.0); Mean Corpuscular Hemoglobin 23.2 pg (27.0-33.0); Mean Corpuscular Volume 71.7 fL (80.0-98.0); NRBC Abs Auto 0.000 X10*3/uL (0.0-0.012); NRBC Pct Auto 0.0 /100WBC (0.0-0.2); Platelet Count 126 X10*3/uL (160-400); Red Blood Count 5.83 X10*6/uL (4.20-5.50); White Blood Count 14.3 X10*3/uL (4.8-10.8)
[2024-12-16 12:58] LABS: Alanine Aminotransferase 14 U/L (0-31); Albumin Level 4.2 g/dL (3.5-5.0); Alkaline Phosphatase 129 U/L (39-117); Anion Gap 15 (12-20); Aspartate Amino Transferase 15 U/L (5-31); Blood Urea Nitrogen 7 mg/dL (9-16); Calcium 9.3 mg/dL (8.4-10.2); Carbon Dioxide 24 mmol/L (22-29); Chloride 100 mmol/L (96-108); Creatinine Clr Calc Pharmacy 131.8; Estimated Glomerular Filt Rate > 60; Magnesium 1.6 mg/dL (1.6-2.6); Potassium 3.6 mmol/L (3.3-5.1); Sodium 135 mmol/L (135-145); Total Protein 7.3 g/dL (6.5-8.0)
[2024-12-16 13:04] LABS: Troponin-I High Sensitivity 3.7 ng/L (<3.5-17.0)
[2024-12-16 13:39] LABS: INTERNATIONAL NORM RATIO 1.1 (0.9-1.1); Prothrombin Time 13.1 SEC (10.9-12.4)
[2024-12-16 13:41] LABS: D Dimer High Sensitivity 159 NG/ML
--- OUTSIDE RECORDS SUMMARY | 2024-12-16 13:41 | XMS_ITS | Clinical Summary ---
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 01/15/2022 10 :21 AM EDT Last Filed Vital Signs Vital Sign Reading Time Taken Comments Blood Pressure 140/82 10/07/2024 2:50 PM EDT Pulse 99 10/07/2024 2:50 PM EDT Temperature 36.1 C (96.9 F) 10/07/2024 2:50 PM EDT Respiratory Rate 12 10/07/2024 2:50 PM EDT Oxygen Saturation 98% 10/07/2024 2:50 PM EDT Inhaled Oxygen Concentration - - Weight 91.8 kg (202 lb 6.4 oz) 10/07/2024 2:50 P M EDT Height 162.6 cm (5' 4 ) 10/07/2024 2:50 PM EDT Body Mass Index 34.74 10/07/2024 2:50 PM EDT Plan of Treatment Upcoming Encounters Date Type Department Care Team (Late st Contact Info) Description 12/29/2024 2:30 PM EDT Office Visit [facility] OPTOMETRY [address] [place] [address] Evelia Godwin, OD [address] [place] [address] 01/12/2025 1:30 PM EDT Office Visit [facility] MEDICINE [address] [place] [address] Llois Adam, ANP [address] [place], [place] [phone] Health Maintenance Due Date Last Done Comments CT Colonography 1978 Colonoscopy 1978 Colorectal Cancer Screening 1978 FIT DNA/Cologuard 1978 FIT 1978 FOBT 1978 Sigmoidoscopy 1978 Diabetes: Foot Exam 1988 Eye Exam 1988 Family Planning (PISQ) 1993 DTaP/Tdap/Td Vaccines (1 - Tdap) 1997 Hepatitis B Vaccines (1 of 3 - 19+ 3-dose series) 1997 Pap Smear 06/04/1999 Cervical Cancer Screening 2008 HPV/Cotest 2008 Pneumococcal Vaccine: Pediatrics (0 to 5 Years) and At-Risk Patients (6 to 49) Years (2 of 2 - PCV) 11/29/2018 11/29/2017 Diagnostic Breast Imaging 06/23/2024 12/24/2023, 10/2023 Mammogram 06/23/2024 12/24/2023, 12/24/2023 Depression Monitoring 10/15/2024 04/17/2024, 025 Influenza Vaccine (#1) 2024 12/11/2023, 2017 Diabetes: Hemoglobin A1C 12/12/2024 025, 03/16/2024, 02/28/2024, Additional history exists SDOH Screening 02/27/2025 02/28/2024 Alcohol/Substance Use Screening 04/17/2025 04/17/2024 Lipid Panel 06/11/2025 06/11/2024, 04/19, 07/19/2020 Disability Screening 08/05/2025 08/05/2024 Tobacco Screening 10/07/2025 10/07/2024 Zoster Vaccines (1 of 2) 2028 RSV Patients and Patients Aged 60 years or older (1 - 1-dose 75+ series) 2053 HIV Screening Completed 05/16/2023 Hepatitis C Screening Completed 05/16/2023, 021 COVID-19 Vaccine Completed 12/11/2023 HIB Vaccines Aged Out No longer eligi ble based on patient's age to complete this topic HPV Vaccines Aged Out No longer eligi ble based on patient's age to complete this topic Hepatitis A Vaccines Aged Out No long er eligible based on patient's age to complete this topic IPV Vaccines Aged Out No longer eligi ble based on patient's age to complete this topic Meningococcal B Vaccine Aged Out No l onger eligible based on patient's age to complete this topic Meningococcal Vaccine Aged Out No sathya ashley eligible based on patient's age to complete this topic RSV under 20 months Aged Out No longe r eligible based on patient's age to complete this topic Rotavirus Vaccines Aged Out No longer eligible based on patient's age to complete this topic Goals Goal Patient Goal Type Associated Problems Recent Progress Patient-Stated? Author Quit using tobacco (cigarettes, smokeless, etc) Tobacco Use No Kolby Morin PharmD Procedures Procedure Name Priority Date/Time Associated Diagnosis Comments XR CHEST 2 VIEWS Routine 12/16/2024 12:4 0 PM EDT HOLD LAVENDER - POSSIBLE HEMATOLOGY Routine 12/16/2024 12:13 PM EDT HEMOGLOBIN A1C Routine 06/11/2024 10:40 AM EDT Class 1 obesity with serious comorbidity and body mass index (BMI) of 32.0 to 32.9 in adult, unspecified obesity type LIPID PANEL, STANDARD Routine 06/11/2024 10:40 AM EDT Type 2 diabetes mellitus with hyperlipidemia (CMS/HCC) (CMS/HCC) BI US BREAST LIMITED LEFT Routine 12/24/2023 1:53 PM EDT HEPATITIS C AB W/REFL TO HCV RNA, QN, PCR Routine 05/16/2023 10:46 AM EST Routine screening for STI (sexually transmitted infection) HIV 1/2 ANTIGEN/ANTIBODY, FOURTH GENERATION W/RFL Routine 05/16/2023 10:46 AM EST Routine screening for STI (sexually transmitted infection) from Last 3 Months or Most Recently Relevant to Health Maintenance Results * XR Chest 2 Views (12/16/2024 12:40 PM EDT) Anatomical Region Laterality Modality Chest Radiographic Heather ging 12/16/2024 12:4 0 PM EDT Narrative 12/16/2024 12:52 PM EDT [address] [address] XRay Report Signed Patient: Teena Garza MR#: [id number] : 1980 Acct:[id number] Age/Sex: 44 / F ADM Date: 12/16/24 Loc: HO.ED Attending Dr: Ordering Physician: Aaron Calderón MD Date of Service: 12/16/24 Procedure(s): XR chest 2V Accession Number(s): [id number] cc: Aaron Calderón MD; LOLIS ADAM NP Reason for Exam: dyspnea EXAMINATION: XR CHEST 2 VIEWS HISTORY: dyspnea COMPARISON: Comparison is made with the prior examination dated 10/20/2020. FINDINGS: PA and lateral views of the chest are submitted. The lungs are expanded and clear. There is no pleural effusion, pneumothorax, or pulmonary vascular congestion. The heart is normal in size. There is degenerative disc disease of the spine. XR/XR chest 2V IMPRESSION: No acute cardiopulmonary abnormality. Electronically signed by: Nicho Bustamante MD 12/16/2024 12:50 PM EDT Dictated By: Nicho Bustamante MD Signed By: <Electronically signed by Nicho Bustamante MD in OV> 12/16/24 1250 DD/ 1240 TD/TT: 12/16/24 1245 Super[address] [employer]: Procedure Note Donotuseinterpreter, Image - 12/16/[address] [address] XRay Report Signed Patient: Teena Garza MMR#: [id number] : 1980Acct:[id number] Age/Sex: 44 / FADM Date: 12/16/24 Loc: HO.ED Attending Dr: Ordering Physician: Aaron Calderón MD Date of Service: 12/16/24 Procedure(s): XR chest 2V Accession Number(s): [id number] cc: Aaron Calderón MD; LOLIS ADAM NP Reason for Exam: dyspnea EXAMINATION: XR CHEST 2 VIEWS HISTORY: dyspnea COMPARISON: Comparison is made with the prior examination dated 10/20/2020. FINDINGS: PA and lateral views of the chest are submitted. The lungs are expanded and clear. There is no pleural effusion, pneumothorax, or pulmonary vascular congestion. The heart is normal in size. There is degenerative disc disease of the spine. XR/XR chest 2V IMPRESSION: No acute cardiopulmonary abnormality. Electronically signed by: Nicho Bustamante MD 12/16/2024 12:50 PM EDT RP Dictated By: Nicho Bustamante MD Signed By: <Electronically signed by Nicho Bustamante MD in OV> 12/16/24 1250 DD/ 1240 TD/TT: 12/16/24 1245 Supervisor [employer]: [facility] External Provider IMG XR PROCEDURES Final Result * Hold Lavender - Possible Hematology (12/16/2024 12:13 PM EDT) Pathologist [facility] Hold Lavender - Possible Hematololgy SEE NOTE [facility] Comment:Specimen will be hel d untested for 8 hours. Call Hematologyif testing is desired. 12/16/2024 12:1 3 PM EDT 12/16/2024 12:28 PM EDT Generic External Data Provider HISTORICAL/NON OR DERABLE LABS Final Result [facility] [address] [place] [phone] * (ABNORMAL) Hemoglobin A1c (06/11/2024 10:40 AM EDT) Hemoglobin A1c 6.7(H) <6.0 % [facility] Comment:Hemoglobin A1C Refer ence Range Adults: 4.8 - 6.0 % Non diabetic: < 6.0 % Goal: < 7.0 %Additional Action Suggested: > 8.0 %Note: Hemoglobin A1c results are invalid for patients with abnormal amounts of HbF. Blood transfusions may impact the HbA1c concentration in the patient sample. Estimated Average Glucose 146 mg/dL [facility] Comment:eAG = Estimated ave rage glucose which is %A1C expressed asaverage glucose, using the formula of the N5Y-HynpbanLyixkpx Glucose study (ADAG), Diabetes Care, Vol.31,#8,Oct. 2007 Blood Venous blood specimen / Unknown 06/11/2024 10:40 AM EDT 06/11/2024 1:11 PM EDT us Jyoti Melendez SENIOR ADMINISTRATOR SUPPORT LAB BLOOD ORDERABLES Final Resul t [facility] [address] [place] [phone] * (ABNORMAL) Lipid Panel, Standard (06/11/2024 10:40 AM EDT) Triglycerides 213(H) <150 mg/dL [facility] Comment:Desirable Triglyceri de: less than 150 mg/dLBorderline High Triglyceride 150-199 mg/dLHigh Triglyceride: 200-499 mg/dLVery High Triglyceride: greater than or equal to 5OO mg/dL Cholesterol 183 <200 mg/dL [facility] Comment:Desirable Cholestero l: less than 200 mg/dLBorderline High Cholesterol: 200-239 mg/dLHigh Cholesterol: greater than 239 mg/dL LDL Cholesterol Calculated 104(H) <100 mg/dL [facility] Comment:Desirable LDL: less than 100 mg/dLNear Optimal/Above Optimal LDL: 110- 129 mg/dLBorderline High LDL: 130-159 mg/dLHigh LDL: 160-189 mg/dLVery High LDL: greater than or equal to 190 mg/dL HDL Cholesterol 37(L) >40 mg/dL [facility] Comment:Desirable HDL: great er than 40 mg/dL Note: This HDL assay may give artificially low results in patients with liver disease. Blood Venous blood specimen / Unknown 06/11/2024 10:40 AM EDT 06/11/2024 1:11 PM EDT us Lolis Adam ANP LAB BLOOD ORDERABLES Final Resul t [facility] [address] [place] [phone] * BI US Breast Limited Left (12/24/2023 1:53 PM EDT) Anatomical Region Laterality Modality Breast Left Ultrasound 12/24/2023 1:53 PM EDT Narrative 12/24/2023 3:01 PM EDT [address] [place] [id number] Ultrasound Report Signed Patient: Teena Garza MR#: [id number] : 1980 Acct:[id number] Age/Sex: 43 / F ADM Date: 12/24/23 Loc: HO.MAMMO Attending Dr: Lolis Adam NP Ordering Physician: LOLIS ADAM NP Date of Service: 12/24/23 Procedure(s): US breast LT limited mamm only Accession Number(s): [id number] cc: LOLIS ADAM NP EXAMINATION: MM DIAGNOSTIC DIGITAL BREAST TOMOSYNTHESIS, BILATERAL US BREAST LIMITED, LEFT CLINICAL INFORMATION: 43-year-old female, complaining of left breast lump 9:00 axis middle depth. Due for yearly. COMPARISON: Mammography: 07/17/2021, 06/04/2021, 05/23/2021 (all from [place]). TECHNIQUE: Digital breast tomosynthesis is performed in both the craniocaudal and mediolateral oblique views along with computer-aided detection (CAD). Synthesized 2D images are generated from the tomosynthesis. In addition, a full field left 3-D mediolateral view was also obtained. FINDINGS: There are scattered areas of fibroglandular density (ACR BI-RADS breast composition Category b). -There are 2 intramammary lymph nodes in the axillary tail regions of of both breasts, unchanged from 2022. -The area of palpable concern at 9:00, mid depth has been marked by BB marker by the technologist. Directly subjacent to this region is an irregular marginated fat density focus best seen on the MLO projection, with a surrounding rim of isodense tissue. This appearance is suggestive of fat necrosis. The patient does report history of injury to the left breast (Details unknown due to language barrier). This will be evaluated with ultrasound. Otherwise, no suspicious masses, suspicious grouped calcifications, or areas of architectural distortion noted in either breast. The overall parenchymal pattern is unchanged from 202. No skin or axillary abnormalities. ULTRASOUND: CLINICAL INFORMATION: Palpable area of concern 9:00 axis left breast middle depth. COMPARISON: No prior available. TECHNIQUE: Targeted sonographic evaluation was performed using a high frequency linear transducer. Attention was given to the left breast 8-11 o'clock axis to include the area of palpable concern. Selected archived documentation. FINDINGS: LEFT BREAST: -In the approximate 9:00 axis left breast, correlating with the area of palpable concern, there are several grouped echogenic fatty lobules, with adjacent small rounded hypoechoic/cystic areas which are surrounded by echogenic rims, with no posterior features. Overall, the findings have a fairly classic appearance of a region of evolving fat necrosis. The patient does report a recent injury. Otherwise, no additional abnormal findings are noted in this region. US/US breast LT limited mamm only IMPRESSION: -There are no findings suspicious for malignancy in either breast. -Findings in the 9:00 axis left breast mid depth, correlating with the palpable foci, with appearance highly favored to represent evolving fat necrosis. This is probably benign, and SIX-MONTH FOLLOW-UP TARGETED LEFT BREAST ULTRASOUND recommended to ensure stability/appropriate evolution. -There are additional stable benign findings in both breasts. OVERALL ASSESSMENT: Mammography: BI-RADS 3 - Probably benign finding(s) - 6 month follow-up suggested Ultrasound: BI-RADS 3 - Probably benign finding(s) - 6 month follow-up suggested RECOMMENDATION: 6 Month F/U Electronically signed by: Osbaldo Mcmahan MD 12/24/2023 02:58 PM EDT Dictated By: Osbaldo Mcmahan MD Signed By: <Electronically signed by Osbaldo Mcmahan MD in OV> 12/24/23 1458 DD/ 1353 TD/TT: 12/24/23 1415 Supervisor [employer]: Procedure Note Donotuseinterpreter, Image - 12/24/2023 [facility] [address] [place], [place] [address] Ultrasound Report Signed Patient: Teena Garza [facility]#: [id number] : 1980Acct:[id number] Age/Sex: 43 / FADM Date: 12/24/23 Loc: HO.MAMMO Attending Dr: Lolis Adam NP Ordering Physician: LOLIS ADAM NP Date of Service: 12/24/23 Procedure(s): US breast LT limited mamm only Accession Number(s): [id number] cc: LOLIS ADAM NP EXAMINATION: MM DIAGNOSTIC DIGITAL BREAST TOMOSYNTHESIS, BILATERAL US BREAST LIMITED, LEFT CLINICAL INFORMATION: 43-year-old female, complaining of left breast lump 9:00 axis middle depth. Due for yearly. COMPARISON: Mammography: 07/17/2021, 06/04/2021, 05/23/2021 (all from [place]). TECHNIQUE: Digital breast tomosynthesis is performed in both the craniocaudal and mediolateral oblique views along with computer-aided detection (CAD). Synthesized 2D images are generated from the tomosynthesis. In addition, a full field left 3-D mediolateral view was also obtained. FINDINGS: There are scattered areas of fibroglandular density (ACR BI-RADS breast composition Category b). -There are 2 intramammary lymph nodes in the axillary tail regions of of both breasts, unchanged from 2021. -The area of palpable concern at 9:00, mid depth has been marked by BB marker by the technologist. Directly subjacent to this region is an irregular marginated fat density focus best seen on the MLO projection, with a surrounding rim of isodense tissue. This appearance is suggestive of fat necrosis. The patient does report history of injury to the left breast (Details unknown due to language barrier). This will be evaluated with ultrasound. Otherwise, no suspicious masses, suspicious grouped calcifications, or areas of architectural distortion noted in either breast. The overall parenchymal pattern is unchanged from . No skin or axillary abnormalities. ULTRASOUND: CLINICAL INFORMATION: Palpable area of concern 9:00 axis left breast middle depth. COMPARISON: No prior available. TECHNIQUE: Targeted sonographic evaluation was performed using a high frequency linear transducer. Attention was given to the left breast 8-11 o'clock axis to include the area of palpable concern. Selected archived documentation. FINDINGS: LEFT BREAST: -In the approximate 9:00 axis left breast, correlating with the area of palpable concern, there are several grouped echogenic fatty lobules, with adjacent small rounded hypoechoic/cystic areas which are surrounded by echogenic rims, with no posterior features. Overall, the findings have a fairly classic appearance of a region of evolving fat necrosis. The patient does report a recent injury. Otherwise, no additional abnormal findings are noted in this region. US/US breast LT limited mamm only IMPRESSION: -There are no findings suspicious for malignancy in either breast. -Findings in the 9:00 axis left breast mid depth, correlating with the palpable foci, with appearance highly favored to represent evolving fat necrosis. This is probably benign, and SIX-MONTH FOLLOW-UP TARGETED LEFT BREAST ULTRASOUND recommended to ensure stability/appropriate evolution. -There are additional stable benign findings in both breasts. OVERALL ASSESSMENT: Mammography: BI-RADS 3 - Probably benign finding(s) - 6 month follow-up suggested Ultrasound: BI-RADS 3 - Probably benign finding(s) - 6 month follow-up suggested RECOMMENDATION: 6 Month F/U Electronically signed by: Osbaldo Mcmahan MD 12/24/2023 02:58 PM EDT Dictated By: Osbaldo Mcmahan MD Signed By: <Electronically signed by Osbaldo Mcmahan MD in OV> 12/24/23 1458 DD/ 1353 TD/TT: 12/24/23 1415 Supervisor [employer] [address]: us Lolis MAYERS Esteban US PROCEDURES Edited Result - Final * Hepatitis C Antibody with Reflex to HCV, RNA, Quantitative, Real-Time PCR (05/16/2023 10:46 AM EST) Hepatitis C Antibody Nonreactive Nonreactive [facility] Comment:Antibodies to HCV no t detected; does not exclude early acuteHCV infection. Blood Venous blood specimen / Unknown 05/16/2023 10:46 AM EST 05/16/2023 11:35 AM EST Lolis Adam [facility] LAB BLOOD ORDERABLES Final Resul t Performing Organization Address [facility]/ZIP Co de Phone Number [facility] [address] [place] [phone] * HIV-1/2 Antigen and Antibodies, Fourth Generation, with Reflexes (05/16/2023 10:46 AM EST) [facility] HIV AB/AG Nonreactive Nonreactive [facility] Comment:HIV-1 p24 Ag and/or HIV-1/HIV-2 Ab not detected.A test result that is nonreactive does not exclude thepossibility of exposure to or infection with HIV-1 and/orHIV-2. Nonreactive results in this assay for individualswith prior exposure to HIV-1 and/or HIV-2 may be due toantigen and antibody levels that are below the limit ofdetection of this assay.The [employer] HIV Ag/Ab Combo assay result andsupplemental assay results should be interpreted inconjunction with the patient's clinical presentation,history and other laboratory results. If the results areinconsistent with clinical evidence, additional testing issuggested to confirm the result. Blood Venous blood specimen / Unknown 05/16/2023 10:46 AM EST 05/16/2023 11:35 AM EST Lolis Adam [facility] LAB BLOOD ORDERABLES Final Resul t Performing Organization Address [facility]/ZIP Co de Phone Number [facility] [address] [place] [address] [phone] from Last 3 Months or Most Recently Relevant to Health Maintenance Insurance [facility] C3 Care Teams Technical Support Manager Relationship Specialty Start Date End Date Lolis Adam ANP [address] [place] [address] PCP - General Family Medicine 11/04/20 Kolby Morin, Love [address] [place] [phone] Pharmacist Internal Medicine 08/19/23
--- OUTSIDE RECORDS SUMMARY | 2024-12-16 13:41 | XMS_ITS | Encounter Summary ---
Author Organization [facility] Address [address] [place] [address] Care Team Providers Care Agricultural Services Director Name Role Phone Fiorella Calov Primary Care Provider [phone] Kolby Morin PharmD Unavailable [phone] Reason for Visit * Reason Onset Date Comments Med Refill 10/20/2023 Encounter Details Date Type Department Care Team (Late st Contact Info) Description 10/20/2023 Refill [facility] [address] [place], [place] [phone] Fiorella Calvo ANP [address] [place] [address] Type 2 diabetes mellitus with hyperlipidemia (CMS/HCC) (CMS/HCC); Chronic left-sided low back pain with left-sided sciatica; Diabetic polyneuropathy associated with type 2 diabetes mellitus (CMS/HCC); Anxiety; Allergic rhinitis, unspecified seasonality, unspecified trigger; Diabetes mellitus type 2 in obese; Wheezing; Pain and swelling of left knee Social History Tobacco Use Types Packs/Day Years Used Date Smoking Tobacco: Every Day Cigarettes Smokeless Tobacco: Never Alcohol Use Standard Drinks/Week Comments Not Currently 0 (1 standard drink = 0.6 oz pur e alcohol) Depression Answer Date Recorded Patient Health Questionnaire-9 Score 20 09/24/2023 Patient Health Questionnaire-9 Score 20 09/24/2023 Last PHQ-9: Questionnaire Data Not on file 0 09/24/2023 Depression Answer Date Recorded Patient Health Questionnaire-2 Score 6 09/24/2023 Comments Unknown Sex and Gender Information Value Date Recorded Sex Assigned at Female 01/15/2022 10:21 AM EDT Legal Sex Female 10:21 AM EDT Gender Identity Choose not to disclose 10/31/202 2 10:21 AM EDT Sexual Orientation Straight 01/15/2022 10 :21 AM EDT documented as of this encounter Plan of Treatment Upcoming Encounters Date Type Department Care Team (Late st Contact Info) Description 12/29/2024 2:30 PM EDT Office Visit [facility] OPTOMETRY [address] [place] [address] Evelia Godwin, OD [address] [place] [address] 01/12/2025 1:30 PM EDT Office Visit [facility] MEDICINE [address] [place] [address] Fiorella Calvo ANP [address] [place] [address] documented as of this encounter Goals Goal Patient Goal Type Associated Problems Recent Progress Patient-Stated? Author Quit using tobacco (cigarettes, smokeless, etc) Tobacco Use No Kolby Morin, Love documented as of this encounter Visit Diagnoses Diagnosis Type 2 diabetes mellitus with hyperlipidemia (HCC) Chronic left-sided low back pain with left-sided sciatica Diabetic polyneuropathy associated with type 2 diabetes mellitus (HCC) Anxiety Anxiety state, unspecified Allergic rhinitis, unspecified seasonality, unspecified trigger Diabetes mellitus type 2 in obese Type II or unspecified type diabetes mellitus without mention of complication, not stated as uncontrolled Wheezing Pain and swelling of left knee documented in this encounter Additional Health Concerns Assessment Noted Time PHQ-9 Depression Total Score: 20 024 9:15 AM EDT documented as of this encounter Care Teams Agricultural Services Director Relationship Specialty Start Date End Date Fiorella Calvo ANP [address] [place] [phone] PCP - General Family Medicine 11/04/20 Kolby Morin, KariD [address] [place] [phone] Pharmacist Internal Medicine 08/19/23 documented as of this encounter
--- OUTSIDE RECORDS SUMMARY | 2024-12-16 13:41 | XMS_ITS | Encounter Summary ---
Author Organization [employer] Address 75 [facility] 7 [place] [address] Care Team Providers Care Pulpit Operator Name Role Phone Fiorella Calvo RIANA Primary Care Provider [phone] Kolby Morin PharmD Unavailable [phone] Reason for Visit * Reason Onset Date Comments Med Refill 05/25/2024 Encounter Details Date Type Department Care Team (Late st Contact Info) Description 05/25/2024 Refill [facility] MEDICINE [address] [place], [place] [phone] Jyoti Melendez NP 230 [place] [address] Type 2 diabetes mellitus with hyperlipidemia (CMS/HCC) ([facility]/HCC); Diabetic polyneuropathy associated with type 2 diabetes mellitus (CMS/HCC) Social History Tobacco Use Types Packs/Day Years Used Date Smoking Tobacco: Former Cigarettes 1 31.7 S tarted: 1993 Smokeless Tobacco: Never Comments:Patient smoked 1-2 ppd x 30 years, [...] with others, in a hotel, in a intermediate, living outside on the street, on a [...] Description 12/29/2024 2:30 PM EDT Office Visit [facility] OPTOMETRY [address] [place] [address] Evelia Godwin, OD [address] [place] [address] 01/12/2025 1:30 PM EDT Office Visit [facility] MEDICINE 230 [place] [address] Fiorella Calvo, ANP 230 [place], [place] [phone] documented as of this encounter Goals Goal Patient Goal Type Associated Problems Recent Progress Patient-Stated? Author Quit using tobacco (cigarettes, smokeless, etc) Tobacco Use No Kolby Morin, PharmD documented as of this encounter Visit Diagnoses Diagnosis Type 2 diabetes mellitus with hyperlipidemia (HCC) Diabetic polyneuropathy associated with type 2 diabetes mellitus (HCC) documented in this encounter Additional Health Concerns Assessment Noted Time PHQ-9 Depression Total Score: 26 025 11:43 AM EST documented as of this encounter Care Teams Pulpit Operator Relationship Specialty Start Date End Date Fiorella Calvo ANP 230 [place] [address] PCP - General Family Medicine 11/04/20 Kolby Morin, Love [address] [place] [address] Pharmacist Internal Medicine 08/19/23 documented as of this encounter
--- OUTSIDE RECORDS SUMMARY | 2024-12-16 13:41 | XMS_ITS | Encounter Summary ---
Author Organization [employer] Address 75 [facility] 7t [place] [address] Care Team Providers Care Tack Puller Name Role Phone Fiorella Calvo Primary Care Provider [phone] Kolby Morin PharmD Unavailable [phone] Reason for Visit * Reason Onset Date Comments Med Refill 02/03/2024 Encounter Details Date Type Department Care Team ([facility] st Contact Info) Description 02/03/2024 Refill [facility] MED & PEDS [address] [place] [address] Fiorella Calvo ANP 230 [place] [address] Chronic left-sided low back pain with left-sided sciatica; Diabetic polyneuropathy associated with type 2 diabetes mellitus (CMS/HCC); Anxiety; Type 2 diabetes mellitus with hyperlipidemia (CMS/HCC) ([facility]/HCC) Social History Tobacco Use Types Packs/Day Years Used Date Smoking Tobacco: Every Day Cigarettes 1 31.7 Started: 1993 Smokeless Tobacco: Never Comments:Patient smoked 1-2 [...] Description 12/29/2024 2:30 PM EDT Office Visit [facility] OPTOMETRY [address] [place] [address] TarEvelia turner, OD [address] [place] [address] 01/12/2025 1:30 PM EDT Office Visit [facility] MEDICINE [address] [place] [address] Fiorella Calvo ANP [address] [place] [address] documented as of this encounter Goals Goal Patient Goal Type Associated Problems Recent Progress Patient-Stated? Author Quit using tobacco (cigarettes, smokeless, etc) Tobacco Use No Kolby Morin, PharmD documented as of this encounter Visit Diagnoses Diagnosis Chronic left-sided low back pain with left-sided sciatica Diabetic polyneuropathy associated with type 2 diabetes mellitus (HCC) Anxiety Anxiety state, unspecified Type 2 diabetes mellitus with hyperlipidemia (HCC) documented in this encounter Additional Health Concerns Assessment Noted Time PHQ-9 Depression Total Score: 20 024 9:15 AM EDT documented as of this encounter Care Teams Tack Puller Relationship Specialty Start Date End Date Fiorella Calvo ANP [address] [place] [address] PCP - General Family Medicine 11/04/20 Kolby Morin, PharmD [address] [place] [address] Pharmacist Internal Medicine 08/19/23 documented as of this encounter
--- OUTSIDE RECORDS SUMMARY | 2024-12-16 13:41 | XMS_ITS | Encounter Summary ---
Author Organization [employer] Address 75 [facility] 7t [place] [address] Care Team Providers Care Agricultural Inspector Name Role Phone Fiorella Calvo Primary Care Provider [phone] Kolby Morin PharmD Unavailable [phone] Reason for Visit * Reason Onset Date Comments Med Refill 12/15/2023 Encounter Details Date Type Department Care Team (Late st Contact Info) Description 12/15/2023 Refill [facility] MED & PEDS [address] [place] [address] Fiorella Calvo ANP [address] [place] [address] Chronic left-sided low back pain with left-sided sciatica; Diabetic polyneuropathy associated with type 2 diabetes mellitus (CMS/HCC); Anxiety Social History Tobacco Use Types Packs/Day Years [...] Description 12/29/2024 2:30 PM EDT Office Visit [facility] OPTOMETRY [address] [place] [address] Evelia Godwin, OD [address] [place] [address] 01/12/2025 1:30 PM EDT Office Visit [facility] MEDICINE 230 [place] [address] Fiorella Calvo ANP [address] [place] [address] documented as of this encounter Goals Goal Patient Goal Type Associated Problems Recent Progress Patient-Stated? Author Quit using tobacco (cigarettes, smokeless, etc) Tobacco Use No Kolby Morin, Love documented as of this encounter Visit Diagnoses Diagnosis Chronic left-sided low back pain with left-sided sciatica Diabetic polyneuropathy associated with type 2 diabetes mellitus (HCC) Anxiety Anxiety state, unspecified documented in this encounter Additional Health Concerns Assessment Noted Time PHQ-9 Depression Total Score: 20 024 9:15 AM EDT documented as of this encounter Care Teams Agricultural Inspector Relationship Specialty Start Date End Date Fiorella Calvo ANP [address] [place] [address] PCP - General Family Medicine 11/04/20 Kolby Morin, KariD [address] [place] [address] Pharmacist Internal Medicine 08/19/23 documented as of this encounter
--- OUTSIDE RECORDS SUMMARY | 2024-12-16 13:41 | XMS_ITS | Encounter Summary ---
Author Organization [employer] [facility] Address 75 [facility] 7 [place] [address] Care Team Providers Care Questioned Documents Examiner Name Role Phone Fiorella Calvo Primary Care Provider [phone] Kolby Morin PharmD Unavailable [phone] Reason for Visit * Reason Onset Date Comments Pt-1 08/12/2024 Encounter Details Date Type Department Care Team ([facility] st Contact Info) Description 08/12/2024 Telephone [facility] MEDICINE 230 [place], [place] [phone] Fiorella Calvo ANP 230 [place] [address] Pt-1 Social History Tobacco Use Types Packs/Day Years [...] with others, in a hotel, in a fdc, living outside on the street, on a [...] AM EDT documented as of this encounter Miscellaneous Notes * Telephone Encounter - Roman Spencer - 08/12/2024 9:23 AM EDT Patient calling requesting PT1 Home Address verified: Y/N: Yes Provider name or facility name: [facility] Facility Address: [address] [place] [address] Escort needed: Y/N: No Do you have a wheelchair: Y/N: No If yes- Manual or electric: N/A Visits: twice a month documented in this encounter Plan of Treatment Upcoming Encounters Date Type Department Care Team (Late st Contact Info) Description 12/29/2024 2:30 PM EDT Office Visit [facility] OPTOMETRY [address] [place] [address] Evelia Godwin OD 267 [place] [address] 01/12/2025 1:30 PM EDT Office Visit [facility] MEDICINE [address] [place] [address] Fiorella Calvo ANP [address] [place] [address] documented as of this encounter Goals Goal Patient Goal Type Associated Problems Recent Progress Patient-Stated? Author Quit using tobacco (cigarettes, smokeless, etc) Tobacco Use No Kolby Morin, KariD documented as of this encounter Visit Diagnoses Not on filedocumented in this encounter Additional Health Concerns Assessment Noted Time PHQ-9 Depression Total Score: 26 025 11:43 AM EST documented as of this encounter Care Teams Questioned Documents Examiner Relationship Specialty Start Date End Date Fiorella Calvo ANP [address] [place] [address] PCP - General Family Medicine 11/04/20 Kolby Morin, PharmD [address] [place] [address] Pharmacist Internal Medicine 08/19/23 documented as of this encounter
--- OUTSIDE RECORDS SUMMARY | 2024-12-16 13:41 | XMS_ITS | Encounter Summary ---
Author Organization [facility] Address 75 [facility] 7 [place] [address] Care Team Providers Care Grey Roll Man Name Role Phone Fiorella Calvo Primary Care Provider [phone] Kolby Morin PharmD Unavailable [phone] Reason for Visit * Reason Onset Date Comments Med Refill 05/09/2024 Encounter Details Date Type Department Care Team (Late st Contact Info) Description 05/09/[address] [facility] MEDICINE [address] [place], [place] [phone] Fiorella Calvo ANP 230 [place] [address] Type 2 diabetes mellitus with hyperlipidemia ([facility]/HCC) ([facility]) Social History Tobacco Use Types Packs/Day Years [...] with others, in a hotel, in a long-term, living outside on the street, on a [...] the past 12 months, has t he [employer], gas, oil or water company threatened to [...] Description 12/29/2024 2:30 PM EDT Office Visit [facility] OPTOMETRY [address] [place] [address] Evelia Godwin, OD [address] [place] [address] 01/12/2025 1:30 PM EDT Office Visit [facility] MEDICINE [address] [place] [address] Fiorella Calvo, ANP 230 [place] [address] documented as of this encounter Goals Goal [...] documented as of this encounter Care Teams Grey Roll Man Relationship Specialty Start Date End Date Fiorella Calvo ANP [address] [place] [address] PCP - General Family Medicine 11/04/20 Kolby Morin PharmD 230 [place] [address] Pharmacist Internal Medicine 08/19/23 documented as of this encounter
--- OUTSIDE RECORDS SUMMARY | 2024-12-16 13:41 | XMS_ITS | Encounter Summary ---
Author Organization [employer] Address 75 [facility] 7 [place] [address] Care Team Providers Care Destination Specialist Name Role Phone Fiorella Calvo RIANA Primary Care Provider [phone] Kolby Morin PharmD Unavailable [phone] Reason for Visit * Reason Onset Date Comments Med Refill 05/09/2024 Encounter Details Date Type Department Care Team ([facility] st Contact Info) Description 05/09/2024 Refill [facility] MEDICINE 230 [place], [place] [phone] Jyoti Melendez NP [address] [place] [address] Type 2 diabetes mellitus with hyperlipidemia ([facility]/HCC) ([facility]) Social History Tobacco Use Types Packs/Day Years [...] with others, in a hotel, in a chcf, living outside on the street, on a [...] the past 12 months, has t he [employer], gas, oil or water company threatened to [...] 2:30 PM EDT Office Visit [facility] OPTOMETRY [address] [place] [address] TarEvelia turner, OD [address] [place] [address] 01/12/2025 1:30 PM EDT Office Visit [facility] MEDICINE [address] [place] [address] Fiorella Calvo, ANP [address] [place] [address] documented as of this encounter Goals Goal [...] documented as of this encounter Care Teams Destination Specialist Relationship Specialty Start Date End Date Fiorella Calvo ANP [address] [place] [address] PCP - General Family Medicine 11/04/20 Kolby Morin PharmD 230 [place] [address] Pharmacist Internal Medicine 08/19/23 documented as of this encounter
--- OUTSIDE RECORDS SUMMARY | 2024-12-16 13:41 | XMS_ITS | Encounter Summary ---
Author Organization [employer] [facility] Address 75 [facility] 7 [place] [address] Care Team Providers Care Independent Insurance Adjuster Name Role Phone Fiorella Calvo Primary Care Provider [phone] Kolby Morin PharmD Unavailable [phone] Reason for Visit * Reason Onset Date Comments Med Refill 07/29/2024 Encounter Details Date Type Department Care Team (Late st Contact Info) Description 07/29/2024 Refill [facility] MEDICINE 230 [place], [place] [phone] Fiorella Calvo ANP [address] [place] [address] Type 2 diabetes mellitus with hyperlipidemia (CMS/HCC) ([facility]/HCC); Diabetic polyneuropathy associated with type 2 [...] with others, in a hotel, in a prison, living outside on the street, on a [...] Visit [facility] OPTOMETRY [address] [place] [address] Evelia Godwin, OD [address] [place] [address] 01/12/2025 1:30 PM EDT Office Visit [facility] MEDICINE [address] [place] [address] Fiorella Calvo, ANP [address] [place] [address] documented as of this encounter Goals Goal [...] documented as of this encounter Care Teams Independent Insurance Adjuster Relationship Specialty Start Date End Date Fiorella Calvo ANP [address] [place] [address] PCP - General Family Medicine 11/04/20 Kolby Morin, Love [address] [place] [address] Pharmacist Internal Medicine 08/19/23 documented as of this encounter
--- OUTSIDE RECORDS SUMMARY | 2024-12-16 13:42 | XMS_ITS | Encounter Summary ---
Author Organization [facility] Address 75 [facility] 7 [place] [address] Care Team Providers Care Refrigeration Brazer/Solderer Name Role Phone Fiorella Calvo Primary Care Provider [phone] Kolby Morin PharmD Unavailable [phone] Reason for Visit * Reason Onset Date Comments Med Refill 03/23/2024 Encounter Details Date Type Department Care Team (Late st Contact Info) Description 03/23/2024 Refill [facility] MEDICINE 230 [place], [place] [phone] Fiorella Calvo ANP [address] [place] [address] Type 2 diabetes mellitus with hyperlipidemia (CMS/HCC) ([facility]/HCC); Diabetic polyneuropathy associated with type 2 diabetes [...] Questionnaire Data Not on file 0 09/24/2023 Housing Stability Answer Date Recorded What is your housing situation today? I do not have housing (Staying with others, in a hotel, in a nursing home, living outside on the street, on a [...] Recorded Patient Health Questionnaire-2 Score 6 09/24/2023 Internet Access Answer Date Recorded Internet Access [...] Description 12/29/2024 2:30 PM EDT Office Visit [facility] OPTOMETRY [address] [place] [address] Evelia Godwin, OD [address] [place] [address] 01/12/2025 1:30 PM EDT Office Visit [facility] MEDICINE 230 [place] [address] Fiorella Calvo, ANP [address] [place] [address] documented as of this encounter Goals Goal [...] documented as of this encounter Care Teams Refrigeration Brazer/Solderer Relationship Specialty Start Date End Date Fiorella Calvo ANP [address] [place] [address] PCP - General Family Medicine 11/04/20 Kolby Morin, Love [address] [place] [address] Pharmacist Internal Medicine 08/19/23 documented as of this encounter
--- OUTSIDE RECORDS SUMMARY | 2024-12-16 13:42 | XMS_ITS | Encounter Summary ---
Author Organization [facility] Address 75 [facility] 7 [place] [address] Care Team Providers Care Mail Sorter Name Role Phone Fiorella Calvo Primary Care Provider [phone] Kolby Morin PharmD Unavailable [phone] Reason for Visit * Reason Onset Date Comments Call Back Request 04/16/2024 Encounter Details Date Type Department Care Team ([facility] st Contact Info) Description 04/16/2024 Telephone [facility] MEDICINE 230 [place], [place] [phone] Fiorella Calvo ANP [address] [place] [address] Call Back Request Social History Tobacco Use Types Packs/Day Years [...] with others, in a hotel, in a half-way, living outside on the street, on a [...] AM EDT documented as of this encounter Functional Status * Over the past 2 weeks, how often have you been bothered by any of the following problems? Question Answer Date of Assessment Author Patient Health Questionnaire-2 Score 6 03/20 11:43 AM Kayce Duarte [place] * Little interest or pleasure in doing things Answer Date of Assessment Author Nearly every day 04/17/2024 11:43 AM Kayce Duarte [place] * Feeling down, depressed, or hopeless Answer Date of Assessment Author Nearly every day 04/17/2024 11:43 AM Kayce Duarte [place] * Trouble falling or staying asleep, or sleeping too much Answer Date of Assessment Author Nearly every day 04/17/2024 11:43 AM Kayce Duarte [place] * Feeling tired or having little energy Answer Date of Assessment Author Nearly every day 04/17/2024 11:43 AM Kayce Duarte [place] * Poor appetite or overeating Answer Date of Assessment Author Nearly every day 04/17/2024 11:43 AM Kayce Duarte [place] * Feeling bad about yourself - or that you are a failure or have let yourself or your family down Answer Date of Assessment Author Nearly every day 04/17/2024 11:43 AM Kayce Duarte [place] * Trouble concentrating on things, such as reading the newspaper or watching television Answer Date of Assessment Author Nearly every day 04/17/2024 11:43 AM Kayce Duarte [place] * Moving or speaking so slowly that other people could have noticed? Or the opposite - being so fidgety or restless that you have been moving around a lot more than usual. Answer Date of Assessment Author More than half the days 04/17/2024 11:43 AM Kayce Duarte MA * Thoughts that you would be better off or hurting yourself in some way Answer Date of Assessment Author Nearly every day 04/17/2024 11:43 AM Kayce Duarte MA * Patient Health Questionnaire-9 Score Answer Date of Assessment Author 04/17/2024 11:43 AM Neeta Duarte [place] * How difficult have these problems made it for you to do your work, take care of things at home, or get along with other people? Answer Date of Assessment Author Very difficult 04/17/2024 11:43 AM Neeta Duarte [place] * Over the last 2 weeks, how often have you been bothered by any of the following problems? Question Answer Date of Assessment Author Feeling nervous, anxious, or on edge 3 03/20 11:43 AM Kayce Duarte MA Not being able to stop or co ntrol worrying 3 04/17/2024 11:43 AM Kayce Duarte MA Worrying too much about diff erent things 3 04/17/2024 11:43 AM Kayce Duarte MA Trouble relaxing 2 04/17/2024 11:43 AM Kayce Duarte MA Being so restless that it is hard to sit still 3 04/17/2024 11:43 AM Kayce Duarte MA Becoming easily annoyed or irritable 2 03/20 11:43 AM Kayce Duarte MA Feeling afraid as if somethi ng awful might happen 3 04/17/2024 11:43 AM Kayce Duarte MA YARIEL-7 Total Score 19 04/17/2024 11:43 AM EST John KayceJUSTIN liriano documented as of this encounter Miscellaneous Notes * Telephone Encounter - Ramo Do - 04/16/2024 9:06 AM EST Tc from pt returning call Please contact at [phone] documented in this encounter Plan of Treatment Upcoming Encounters Date Type Department Care Team (Late st Contact Info) Description 12/29/2024 2:30 PM EDT Office Visit [facility] OPTOMETRY [address] [place] [address] TarEvelia turner, OD [address] [place] [address] 01/12/2025 1:30 PM EDT Office Visit [facility] MEDICINE 230 [place] [address] Fiorella Calvo ANP [address] [place] [address] documented as of this encounter Goals Goal Patient Goal Type Associated Problems Recent Progress Patient-Stated? Author Quit using tobacco (cigarettes, smokeless, etc) Tobacco Use No Kolby Morin, Love documented as of this encounter Visit Diagnoses Not on filedocumented in this encounter Additional Health Concerns Assessment Noted Time PHQ-9 Depression Total Score: 20 024 9:15 AM EDT documented as of this encounter Care Teams Mail Sorter Relationship Specialty Start Date End Date Fiorella Calvo ANP [address] [place] [address] PCP - General Family Medicine 11/04/20 Kolby Morin PharmD [address] [place] [address] Pharmacist Internal Medicine 08/19/23 documented as of this encounter
--- OUTSIDE RECORDS SUMMARY | 2024-12-16 13:42 | XMS_ITS | Clinical Summary ---
Author Organization [facility] Address [address] [place] [address] Care Team Providers Care Impregnator And Drier Name Role Phone Unavailable Primary Care Provider Unavailabl e Social History Tobacco Use Types Packs/Day Years Used Date Smoking Tobacco: Never Assessed Comments Unknown Sex and Gender Information Value Date Recorded Sex Assigned at Not on file Legal Sex Female 8:08 PM EST Gender Identity Not on file Sexual Orientation Not on file Obstetrics History Plan of Treatment Health Maintenance Due Date Last Done Comments Breast Cancer Screening 1978 DTaP,Tdap,and Td Vaccines (1 - Tdap) 1997 Hepatitis B Vaccines (1 of 3 - 19+ 3-dose series) 1997 Cervical Cancer Screening: P ap Smear 06/04/1999 Colorectal Cancer Screening: Colonoscopy 04/11/2023 HIV Screening 04/11/2023 Hepatitis C Screening 04/11/2023 Social Influencers of Health Screening 04/11/2023 Depression Screening 03/18/2024 COVID-19 Vaccine ( - 2023-2 5 season) 2024 Influenza Vaccine (#1) 2024 RSV Immunization Adult Patie nts (1 - 1-dose 75+ series) 2053 HIB Vaccines Aged Out No longer eligi [...] on patient's age to complete this topic MMR Vaccines Aged Out No longer eligi ble based on patient's age to complete this topic Meningococcal ACWY Vaccine Aged Out N o longer eligible based on patient's age to complete this topic Meningococcal B Vaccine Aged Out No l onger eligible based on patient's age to complete this topic Pneumococcal Vaccine: Pediat rics (0 to 5 Years) and At-Risk Patients (6 to 49 Years) Aged Out No longer eligible b ased on patient's age to complete this topic RSV Immunization Patients Un anjelica 20 months Aged Out No longer eligible b ased on patient's age to complete this topic Varicella Vaccines Aged Out No longer eligible based on patient's age to complete this topic
--- OUTSIDE RECORDS SUMMARY | 2024-12-16 13:42 | XMS_ITS | Encounter Summary ---
Author Organization [facility] [facility] Address 75 [facility] 7 [place] [address] Care Team Providers Care Cheese Grader Name Role Phone Fiorella Calvo Primary Care Provider [phone] Kolby Morin PharmD Unavailable [phone] Reason for Visit * Reason Onset Date Comments Med Refill 03/22/2024 Encounter Details Date Type Department Care Team (Late st Contact Info) Description 03/22/2024 Refill [facility] MEDICINE 230 [place], [place] [phone] Fiorella Calvo ANP [address] [place] [address] Type 2 diabetes mellitus with hyperlipidemia ([facility]/HCC) ([facility]) Social History Tobacco Use Types Packs/Day [...] with others, in a hotel, in a long term, living outside on the street, on a [...] the past 12 months, has t he [employer], gas, oil or water company threatened to [...] Description 12/29/2024 2:30 PM EDT Office Visit [facility] OPTOMETRY [address] [place] [address] Evelia Godwin, OD [address] [place] [address] 01/12/2025 1:30 PM EDT Office Visit [facility] MEDICINE [address] [place] [address] Fiorella Calvo, ANP [address] [place] [address] documented as of this encounter Goals Goal [...] documented as of this encounter Care Teams Cheese Grader Relationship Specialty Start Date End Date Fiorella Calvo ANP [address] [place] [address] PCP - General Family Medicine 11/04/20 Kolby Morin PharmD [address] [place] [address] Pharmacist Internal Medicine 08/19/23 documented as of this encounter
--- OUTSIDE RECORDS SUMMARY | 2024-12-16 13:42 | XMS_ITS | Encounter Summary ---
Author Organization [employer] [facility] Address [address] [place] [address] 7 [place] [address] Care Team Providers Care Bruise Trimmer Name Role Phone Fiorella Calvo Primary Care Provider [phone] Kolby Morin PharmD Unavailable [phone] Reason for Visit * Reason Comments Med Refill Encounter Details Date Type Department Care Team (Late st Contact Info) Description 07/17/2023 Refill [facility] MEDICINE [address] [place] [address] Fiorella Calvo ANP [address] [place] [address] Type 2 diabetes mellitus with hyperlipidemia ([facility]/HCC) ([facility]) Social History Tobacco Use Types Packs/Day Years Used Date Smoking Tobacco: Every Day Cigarettes Smokeless Tobacco: Never Alcohol Use Standard Drinks/Week Comments Not Currently 0 (1 standard drink = 0.6 oz pur e alcohol) Comments Unknown Sex and Gender Information Value [...] Description 12/29/2024 2:30 PM EDT Office Visit [facility] OPTOMETRY [address] [place], [place] [phone] Evelia Godwin, OD [address] [place], [place] [phone] 01/12/2025 1:30 PM EDT Office Visit [facility] MEDICINE [address] [place] [address] Fiorella Calvo ANP 230 [place] [address] documented as of this encounter Visit Diagnoses Diagnosis Type 2 diabetes mellitus with hyperlipidemia (HCC) documented in this encounter Care Teams Bruise Trimmer Relationship Specialty Start Date End Date Fiorella Calvo ANP [address] [place] [address] PCP - General Family Medicine 11/04/20 Kolby Morin, KariD [address] [place] [address] Pharmacist Internal Medicine 08/19/23 documented as of this encounter
--- OUTSIDE RECORDS SUMMARY | 2024-12-16 13:42 | XMS_ITS | Encounter Summary ---
Author Organization [employer] [facility] Address [address] [facility] 7 [place] [address] Care Team Providers Care Regulatory Affairs Coordinator Name Role Phone Fiorella Calvo Primary Care Provider [phone] Kolby Morin PharmD Unavailable [phone] Reason for Visit * Reason Onset Date Comments Med Refill 04/14/2024 Encounter Details Date Type Department Care Team (Late st Contact Info) Description 04/14/2024 Refill [facility] MEDICINE 230 [place], [place] [phone] Fiorella Calvo ANP [address] [place] [address] Type 2 diabetes mellitus with hyperlipidemia ([facility]/HCC) ([facility]) Social History Tobacco Use Types Packs/Day [...] with others, in a hotel, in a snf, living outside on the street, on a [...] the past 12 months, has t he [employer], gas, oil or water [employer] threatened to shut off services in your [...] YARIEL-7 Total Score 19 04/17/2024 11:43 AM Kayce Duarte [place] documented as of this encounter Plan of Treatment Upcoming Encounters Date Type Department Care Team (Late st Contact Info) Description 12/29/2024 2:30 PM EDT Office Visit [facility] OPTOMETRY [address] [place] [address] Taryue Evelia, OD [address] [place] [address] 01/12/2025 1:30 PM EDT Office Visit [facility] MEDICINE [address] [place] [address] Fiorella Calvo ANP [address] [place] [address] documented as of this encounter Goals Goal [...] documented as of this encounter Care Teams Regulatory Affairs Coordinator Relationship Specialty Start Date End Date Fiorella Calvo ANP [address] [place] [address] PCP - General Family Medicine 11/04/20 Kolby Morin, PharmD [address] [place] [address] Pharmacist Internal Medicine 08/19/23 documented as of this encounter
--- OUTSIDE RECORDS SUMMARY | 2024-12-16 13:42 | XMS_ITS | Encounter Summary ---
Author Organization [employer] [facility] Address 75 [facility] 7 [place] [address] Care Team Providers Care B Operator Name Role Phone Fiorella Calvo Primary Care Provider [phone] Kolby Morin PharmD Unavailable [phone] Reason for Visit * Reason Onset Date Comments Med Refill 06/28/2024 Encounter Details Date Type Department Care Team (Late st Contact Info) Description 06/28/2024 Refill [facility] MEDICINE [address] [place], [place] [phone] Fiorella Calvo ANP [address] [place] [address] Type 2 diabetes mellitus with hyperlipidemia (CMS/HCC) ([facility]/HCC); Diabetic polyneuropathy associated with type 2 [...] with others, in a hotel, in a jail, living outside on the street, on a [...] Description 12/29/2024 2:30 PM EDT Office Visit [facility] OPTOMETRY [address] [place] [address] Evelia Godwin, OD 267 [place] [address] 01/12/2025 1:30 PM EDT Office Visit [facility] MEDICINE [address] [place] [address] Fiorella Calvo, ANP [address] [place] [address] documented as of this encounter Goals Goal [...] documented as of this encounter Care Teams B Operator Relationship Specialty Start Date End Date Fiorella Calvo ANP [address] [place] [address] PCP - General Family Medicine 11/04/20 Kolby Morin, Love [address] [place] [address] Pharmacist Internal Medicine 08/19/23 documented as of this encounter
--- OUTSIDE RECORDS SUMMARY | 2024-12-16 13:42 | XMS_ITS | Encounter Summary ---
Author Organization [facility] Address [address] [facility] 7 [place] [address] Care Team Providers Care Multimedia Journalist Name Role Phone Fiorella Calvo Primary Care Provider [phone] Kolby Morin PharmD Unavailable [phone] Reason for Visit * Reason Onset Date Comments Med Refill 12/04/2024 Encounter Details Date Type Department Care Team (Late st Contact Info) Description 12/04/2024 Refill [facility] MEDICINE 230 [place], [place] [phone] Fiorella Calvo ANP 230 [place] [address] Type 2 diabetes mellitus with hyperlipidemia (CMS/HCC) ([facility]/HCC); Diabetic polyneuropathy associated with type 2 diabetes [...] with others, in a hotel, in a penitentiary, living outside on the street, on a [...] Description 12/29/2024 2:30 PM EDT Office Visit [facility] OPTOMETRY [address] [place] [address] Evelia Godwin, OD [address] [place] [address] 01/12/2025 1:30 PM EDT Office Visit [facility] MEDICINE [address] [place] [address] Fiorella Calvo, ANP 230 [place] [address] documented as of this encounter Goals Goal [...] documented as of this encounter Care Teams Multimedia Journalist Relationship Specialty Start Date End Date Fiorella Calvo ANP 230 [place] [address] PCP - General Family Medicine 11/04/20 Kolby Morin, Love 230 [place] [address] Pharmacist Internal Medicine 08/19/23 documented as of this encounter
--- OUTSIDE RECORDS SUMMARY | 2024-12-16 13:42 | XMS_ITS | Encounter Summary ---
Author Organization [employer] [facility] Address [address] [facility] 7 [place] [address] Care Team Providers Care Guide Domestic Tour Name Role Phone Fiorella Calvo Primary Care Provider [phone] Kolby Morin PharmD Unavailable [phone] Reason for Visit * Reason Onset Date Comments Med Refill 12/08/2024 Encounter Details Date Type Department Care Team (Late st Contact Info) Description 12/08/2024 Refill [facility] MEDICINE 230 [place], [place] [phone] Fiorella Calvo ANP 230 [place] [address] Type 2 diabetes mellitus with hyperlipidemia (CMS/HCC) ([facility]/HCC); Diabetic polyneuropathy associated with type [...] with others, in a hotel, in a mcc, living outside on the street, on a [...] Description 12/29/2024 2:30 PM EDT Office Visit [facility] OPTOMETRY [address] [place] [address] Evelia Godwin, OD [address] [place] [address] 01/12/2025 1:30 PM EDT Office Visit [facility] MEDICINE [address] [place] [address] Fiorella Calvo, ANP 230 [place] [address] documented as of this encounter Goals Goal [...] documented as of this encounter Care Teams Guide Domestic Tour Relationship Specialty Start Date End Date Fiorella Calvo ANP [address] [place] [address] PCP - General Family Medicine 11/04/20 Kolby Morin, Love 230 [place] [address] Pharmacist Internal Medicine 08/19/23 documented as of this encounter
--- OUTSIDE RECORDS SUMMARY | 2024-12-16 13:42 | XMS_ITS | Encounter Summary ---
Author Organization [employer] [facility] Address [address] [place] [address] 7 [place] [address] Care Team Providers Care Bag Cutter Name Role Phone Fiorella Calvo Primary Care Provider [phone] Kolby Morin PharmD Unavailable [phone] Reason for Visit * Reason Onset Date Comments Med Refill 07/16/2023 Encounter Details Date Type Department Care Team (Late st Contact Info) Description 07/16/2023 Refill [facility] MEDICINE [address] [place] [address] Fiorella Calvo ANP 230 [place] [address] Diabetes mellitus type 2 in obese Social History Tobacco Use Types Packs/Day Years [...] 2:30 PM EDT Office Visit [facility] OPTOMETRY [address] [place] [address] Evelia Godwin, OD [address] [place] [address] 01/12/2025 1:30 PM EDT Office Visit [facility] [address] [place] [address] Fiorella Calvo ANP 230 [place] [address] documented as of this encounter Visit Diagnoses Diagnosis Diabetes mellitus type 2 in obese Type II or unspecified type diabetes mellitus without mention of complication, not stated as uncontrolled documented in this encounter Care Teams Bag Cutter Relationship Specialty Start Date End Date Fiorella Calvo ANP [address] [place] [address] PCP - General Family Medicine 11/04/20 Kolby Morin, KariD [address] [place] [address] Pharmacist Internal Medicine 08/19/23 documented as of this encounter
--- OUTSIDE RECORDS SUMMARY | 2024-12-16 13:42 | XMS_ITS | Encounter Summary ---
Author Organization [employer] [facility] Address [address] [facility] 7t [place] [address] Care Team Providers Care Floor Covering Layer Name Role Phone Lolis Adam RIANA Primary Care Provider [phone] Kolby Morin PharmD Unavailable [phone] Encounter Details Date Type Department Care Team (Late st Contact Info) Description 12/16/2024 Orders Only GENERIC EXTERNAL DATA DEPARTMENT Provider, Generic External Data Social History Tobacco Use Types Packs/Day Years Used Date Smoking Tobacco: Every Day Cigarettes 31.7 Started: 1993 Smokeless Tobacco: Never Comments:Patient [...] with others, in a hotel, in a senior living, living outside on the street, on a [...] Description 12/29/2024 2:30 PM EDT Office Visit [facility] OPTOMETRY [address] [place] [address] Evelia Godwin, OD [address] [place] [address] 01/12/2025 1:30 PM EDT Office Visit [facility] MEDICINE 230 [place] [address] Lolis Adam ANP 230 [place] [address] documented as of this encounter Goals Goal Patient Goal Type Associated Problems Recent Progress Patient-Stated? Author Quit using tobacco (cigarettes, smokeless, etc) Tobacco Use No Kolby Morin, Love documented as of this encounter Procedures Procedure Name Priority Date/Time Associated Diagnosis Comments XR CHEST 2 VIEWS Routine 12/16/2024 12:4 0 PM EDT HOLD LAVENDER - POSSIBLE HEMATOLOGY Routine 12/16/2024 12:13 PM EDT documented in this encounter Results * XR Chest 2 Views (12/16/2024 12:40 PM EDT) Anatomical Region Laterality Modality Chest Radiographic Heather ging 12/16/2024 12:4 0 PM EDT Narrative 12/16/2024 12:52 PM EDT [address] [address] XRay Report Signed Patient: Teena Garza MR#: [id number] : 1980 Acct:[id number] Age/Sex: 44 / F ADM Date: 12/16/24 Loc: HO.ED Attending Dr: Ordering Physician: Aaron Calderón MD Date of Service: 12/16/24 Procedure(s): XR chest 2V Accession Number(s): [id number] cc: Aaron Calderón MD; LOLIS ADAM NP [...] 12/16/24 1250 DD/ 1240 TD/TT: 12/16/24 1245 Machine Worker: Procedure Note Donotuseinterpreter, Image - 12/16/[address] [address] XRay Report Signed Patient: Teena Garza MMR#: [id number] : 1980Acct:[id number] Age/Sex: 44 / FADM Date: 12/16/24 Loc: .ED Attending Dr: Ordering Physician: Aaron Calderón MD Date of Service: 12/16/24 Procedure(s): XR chest 2V Accession Number(s): [id number] cc: Aaron Calderón MD; LOLIS ADAM NP [...] 12/16/24 1250 DD/ 1240 TD/TT: 12/16/24 1245 Machine Worker: [facility] External Provider IMG XR PROCEDURES Final Result * Hold Lavender - Possible Hematology (12/16/2024 12:13 PM EDT) Hold Lavender - Possible Hematololgy SEE NOTE [facility] Comment:Specimen will be hel d untested for 8 hours. Call Hematologyif testing is desired. 12/16/2024 12:1 3 PM EDT 12/16/2024 12:28 PM EDT Generic External Data Provider HISTORICAL/NON OR DERABLE LABS Final Result [facility] [address] [place] [address] [phone] documented in this encounter Visit Diagnoses Not on filedocumented in this encounter Additional Health Concerns Assessment Noted Time PHQ-9 Depression Total Score: 26 025 11:43 AM EST documented as of this encounter Care Teams Floor Covering Layer Relationship Specialty Start Date End Date Lolis Adam ANP [address] [place] [address] PCP - General Family Medicine 11/04/20 Kolby Morin, PharmD [address] [place] [address] Pharmacist Internal Medicine 08/19/23 documented as of this encounter
--- OUTSIDE RECORDS SUMMARY | 2024-12-16 13:42 | XMS_ITS | Encounter Summary ---
Author Organization [employer] [facility] Address [address] [facility] 7 [place] [address] Care Team Providers Care Mail Sorting Supervisor Name Role Phone Fiorella Calvo Primary Care Provider [phone] Kolby Morin PharmD Unavailable [phone] Reason for Visit * Reason Onset Date Comments Med Refill 03/23/2024 Encounter Details Date Type Department Care Team (Late st Contact Info) Description 03/23/2024 Refill [facility] MEDICINE 230 [place], [place] [phone] Fiorella Calvo ANP 230 [place] [address] Type 2 diabetes mellitus with hyperlipidemia (CMS/HCC) ([facility]/HCC); Diabetic polyneuropathy associated with type 2 diabetes [...] with others, in a hotel, in a skilled nursing, living outside on the street, on a [...] Visit [facility] OPTOMETRY [address] [place] [address] Evelia Godwin, OD [address] [place] [address] 01/12/2025 1:30 PM EDT Office Visit [facility] MEDICINE [address] [place] [address] Fiorella Calvo, ANP [address] [place] [address] documented as of this encounter Goals Goal [...] as of this encounter Care Teams Mail Sorting Supervisor Relationship Specialty Start Date End Date Fiorella Calvo ANP [address] [place] [address] PCP - General Family Medicine 11/04/20 Kolby Morin, Love [address] [place] [address] Pharmacist Internal Medicine 08/19/23 documented as of this encounter
--- OUTSIDE RECORDS SUMMARY | 2024-12-16 13:42 | XMS_ITS | Encounter Summary ---
Author Organization [employer] [facility] Address 75 [facility] 7 [place] [address] Care Team Providers Care Operator Specialist Communications Name Role Phone Fiorella Calvo Primary Care Provider [phone] Kolby Morin PharmD Unavailable [phone] Reason for Visit * Reason Onset Date Comments Med Refill 04/08/2024 Encounter Details Date Type Department Care Team (Late st Contact Info) Description 04/08/2024 Refill [facility] MEDICINE 230 [place], [place] [phone] Fiorella Calvo ANP 230 [place] [address] Type 2 diabetes mellitus with hyperlipidemia (CMS/HCC) [...] with others, in a hotel, in a fpc, living outside on the street, on a [...] Description 12/29/2024 2:30 PM EDT Office Visit [facility] OPTOMETRY [address] [place] [address] Evelia Godwin, OD [address] [place] [address] 01/12/2025 1:30 PM EDT Office Visit [facility] MEDICINE [address] [place] [address] Fiorella Calvo, ANP 230 [place] [address] documented as of this encounter Goals Goal [...] documented as of this encounter Care Teams Operator Specialist Communications Relationship Specialty Start Date End Date Fiorella Calvo ANP [address] [place] [address] PCP - General Family Medicine 11/04/20 Kolby Morin, Love [address] [place] [address] Pharmacist Internal Medicine 08/19/23 documented as of this encounter
--- OUTSIDE RECORDS SUMMARY | 2024-12-16 13:42 | XMS_ITS | Encounter Summary ---
Author Organization [employer] [facility] Address [address] [facility] 7 [place] [address] Care Team Providers Care Bilingual Administrative Assistant Name Role Phone Fiorella Calvo Primary Care Provider [phone] Kolby Morin PharmD Unavailable [phone] Reason for Visit * Reason Onset Date Comments Nurse Triage 11/30/2024 Encounter Details Date Type Department Care Team ([facility] st Contact Info) Description 11/30/2024 Telephone [facility] MEDICINE 230 [place], [place] [phone] Fiorella Calvo ANP [address] [place] [address] Nurse Triage Social History Tobacco Use Types Packs/Day Years [...] with others, in a hotel, in a halfway, living outside on the street, on a [...] encounter Miscellaneous Notes * Telephone Encounter - Celeste Hui RN - 11/30/2024 5:48 PM EDT Triage call with [facility] speech correction assistant , [place] [id number]. Pt reports blood sugar of 269 today at 330pm. Pt didn't check blood sugar in the morning before breakfast today or yesterday morning. 11/28/24 BS in the Am was 230. Pt was distracted during call, music was loud and loud talking. Pt is asked if Pt is busy would Pt like to call back tomorrow. Pt agrees to call back tomorrow. Pt is advised to check BS first thing in the morning. Pt has freestyle in place. Protocol Used: Diabetes - High Blood Sugar (Adult) Protocol-Based Disposition: Home Care Positive Triage Question: * Blood glucose > 300 mg/dL (16.7 mmol/L) * All higher-acuity triage questions were negative Care Advice Discussed: * High Blood Sugar (Hyperglycemia) * Treatment - Liquids * Reasons To Call Back - Blood glucose over 300 mg/dL (16.7 mmol/L), two or more times in a row. - Urine ketones become moderate or large (or more than 1+); if you check blood ketones, blood ketone test is over 1.4 mmol/L - Vomiting lasting over 4 hours or unable to drink any fluids - Rapid breathing occurs - You have more questions - You become worse * Telephone Encounter - Roman Tj - 11/30/2024 4:28 PM EDT Symptom: High Blood Sugar - Caller Reports Outcome: Talk to a nurse or provider within 15 minutes Reason: Known blood sugar above 300 Please contact pt at [phone]. (French Speaker) documented in this encounter Plan of Treatment Upcoming Encounters Date Type Department Care Team (Late st Contact Info) Description 12/29/2024 2:30 PM EDT Office Visit [facility] OPTOMETRY [address] [place] [address] Evelia Godwin, OD [address] [place] [address] 01/12/2025 1:30 PM EDT Office Visit [facility] MEDICINE 230 [place] [address] Fiorella Calvo ANP [address] [place] [address] documented as of this encounter Goals Goal Patient Goal Type Associated Problems Recent Progress Patient-Stated? Author Quit using tobacco (cigarettes, smokeless, etc) Tobacco Use No Kolby Morin, Love documented as of this encounter Visit Diagnoses Not on filedocumented in this encounter Additional Health Concerns Assessment Noted Time PHQ-9 Depression Total Score: 26 025 11:43 AM EST documented as of this encounter Care Teams Bilingual Administrative Assistant Relationship Specialty Start Date End Date Fiorella Calvo ANP [address] [place] [address] PCP - General Family Medicine 11/04/20 Kolby Morin, KariD [address] [place] [address] Pharmacist Internal Medicine 08/19/23 documented as of this encounter
--- OUTSIDE RECORDS SUMMARY | 2024-12-16 13:42 | XMS_ITS | Encounter Summary ---
Author Organization [employer] [facility] Address 75 [facility] 7t [place] [address] Care Team Providers Care Building Custodian Name Role Phone Fiorella Calvo Primary Care Provider [phone] Kolby Morin PharmD Unavailable [phone] Reason for Visit * Reason Comments Med Refill Encounter Details Date Type Department Care Team (Late st Contact Info) Description 03/27/[address] [facility] MEDICINE 230 [place], [place] [phone] Fiorella Calvo ANP 230 [place] [address] Type 2 diabetes mellitus with hyperlipidemia (CMS/HCC) ([facility]/HCC); Diabetic polyneuropathy associated with type 2 diabetes [...] with others, in a hotel, in a detention, living outside on the street, on a [...] [facility] [address] [place] [address] Evelia Godwin, OD 267 [place] [address] 01/12/2025 1:30 PM EDT Office Visit [facility] MEDICINE 230 [place] [address] Fiorella Calvo, RIANA 230 [place] [address] documented as of this encounter Goals Goal [...] documented as of this encounter Care Teams Building Custodian Relationship Specialty Start Date End Date Fiorella Calvo ANP 230 [place] [address] PCP - General Family Medicine 11/04/20 Kolby Morin PharmD 230 [place] [address] Pharmacist Internal Medicine 08/19/23 documented as of this encounter
--- OUTSIDE RECORDS SUMMARY | 2024-12-16 13:42 | XMS_ITS | Encounter Summary ---
Author Organization [employer] [facility] Address [address] [facility] 7t [place] [address] Care Team Providers Care Gritting Machine Operator Name Role Phone Fiorella Calvo Primary Care Provider [phone] Kolby Morin PharmD Unavailable Reason for Visit * Reason Onset Date Comments Nurse Triage 09/11/2023 Encounter Details Date Type Department Care Team (Late st Contact Info) Description 09/11/2023 Telephone [facility] MEDICINE [address] [place], [place] [phone] Fiorella Calvo ANP 230 [place] [address] Nurse Triage Social History Tobacco Use Types Packs/Day Years Used Date Smoking Tobacco: Every Day Cigarettes Smokeless Tobacco: Never Alcohol Use Standard Drinks/Week Comments Not Currently 0 (1 standard drink = 0.6 oz pur e alcohol) Depression Answer Date Recorded Patient Health Questionnaire-9 Score 23 08/06/2023 Patient Health Questionnaire-9 Score 23 08/06/2023 Last PHQ-9: Questionnaire Data Not on file 0 08/06/2023 Depression Answer Date Recorded Patient Health Questionnaire-2 Score 6 08/06/2023 Comments Unknown Sex and Gender Information Value Date Recorded Sex Assigned at Female 01/15/2022 10:21 AM EDT Legal Sex Female 10:21 AM EDT Gender Identity Choose not to disclose 10:21 AM EDT Sexual Orientation Straight 01/15/2022 10 :21 AM EDT documented as of this encounter Miscellaneous Notes * Telephone Encounter - Celeste Hui RN - 09/11/2023 11:35 AM EDT Triage call with [employer] [place] [id number] Pt reports has had chest pain for last 2-3 weeks. Pt describes pain as pressure, located in middle of chest, radiates to right shoulder at times. Neg for jaw pain, difficulty breathing, no cocaine use. Pt denies heart burn, indigestion. Pt reports pain comes and goes, is coming more frequently now.When Pt is at work Pt will have to stop working until the pain goes away. Pt reports some heart palpatations, dizziness , light headedness at times. Pt does have a chronic cough . Pt reports this pain comes after eating and when walking. Pt is advised to seek evaluation in ED and then call for follow up with PCP after. Pt agrees with disposition . Protocol Used: Chest Pain (Adult) Protocol-Based Disposition: Go to ED/C Now (or to Office with PCP Approval) Positive Triage Questions: * Chest pain lasting longer than 5 minutes and occurred in last 3 days (72 hours) (Exception: Feelsexactly the same as previously diagnosed heartburn and has accompanying sour taste in mouth.) * Dizziness or lightheadedness * All higher-acuity triage questions were negative Care Advice Discussed: * Reassurance and Education - Fleeting Chest Pains * Reasons To Call Back - Chest pain increases in frequency, duration or severity - Chest pain lasts over 5 minutes - Chest pains persist over 3 days - Difficulty breathing or unusual sweating occurs - Fever over 100.4 F (38.0 C) - You become worse * Telephone Encounter - Chioma Barker - 09/11/2023 10:58 AM EDT Symptom: Chest Pain - Adult Outcome: Transfer to a nurse or provider NOW! Reason: Heaviness on chest The caller accepted this outcome Botswanan speaker documented in this encounter Plan of Treatment Upcoming Encounters Date Type Department Care Team (Late st Contact Info) Description 12/29/2024 2:30 PM EDT Office Visit [facility] OPTOMETRY [address] [place] [address] Evelia Godwin, OD [address] [place] [address] 01/12/2025 1:30 PM EDT Office Visit [facility] MEDICINE [address] [place] [address] Fiorella Calvo ANP 230 [place] [address] documented as of this encounter Goals Goal Patient Goal Type Associated Problems Recent Progress Patient-Stated? Author Quit using tobacco (cigarettes, smokeless, etc) Tobacco Use No Kolby Morin, Love documented as of this encounter Visit Diagnoses Not on filedocumented in this encounter Additional Health Concerns Assessment Noted Time PHQ-9 Depression Total Score: 23 024 2:49 PM EDT documented as of this encounter Care Teams Gritting Machine Operator Relationship Specialty Start Date End Date Fiorella Calvo ANP [address] [place] [address] PCP - General Family Medicine 11/04/20 Kolby Morin, KariD [address] [place] [address] Pharmacist Internal Medicine 08/19/23 documented as of this encounter
--- OUTSIDE RECORDS SUMMARY | 2024-12-16 13:42 | XMS_ITS | Encounter Summary ---
Author Organization [employer] [facility] Address [address] [place] [address] 7t [place] [address] Care Team Providers Care Superintendent Car Construction Name Role Phone Fiorella Calvo Primary Care Provider [phone] Kolby Morin PharmD Unavailable [phone] Reason for Visit * Reason Comments Med Change Request Encounter Details Date Type Department Care Team (Late st Contact Info) Description 04/14/2023 Refill [facility] MEDICINE [address] [place] [address] Fiorella Calvo ANP 230 [place] [address] Chronic left-sided low back pain with left-sided sciatica; Diabetic polyneuropathy associated with type 2 diabetes mellitus (CMS/HCC); Anxiety Social History Tobacco Use Types Packs/Day Years Used Date Smoking Tobacco: Every Day Cigarettes Smokeless Tobacco: Never Comments Unknown Sex and Gender Information Value [...] [facility] [address] [place] [address] Evelia Godwin, OD [address] [place] [address] 01/12/2025 1:30 PM EDT Office Visit [facility] MEDICINE [address] [place] [address] Fiorella Calvo ANP [address] [place] [address] documented as of this encounter Visit Diagnoses Diagnosis Chronic left-sided low back pain with left-sided sciatica Diabetic polyneuropathy associated with type 2 diabetes mellitus (HCC) Anxiety Anxiety state, unspecified documented in this encounter Care Teams Superintendent Car Construction Relationship Specialty Start Date End Date Fiorella Calvo ANP [address] [place] [address] PCP - General Family Medicine 11/04/20 Kolby Morin, KariD [address] [place] [address] Pharmacist Internal Medicine 08/19/23 documented as of this encounter
--- OUTSIDE RECORDS SUMMARY | 2024-12-16 13:42 | XMS_ITS | Encounter Summary ---
Author Organization [facility] Address [address] [facility] 7 [place] [address] Care Team Providers Care Behavioral Specialist Name Role Phone Fiorella Calvo Primary Care Provider [phone] Kolby Morin PharmD Unavailable [phone] Reason for Visit * Reason Onset Date Comments PT1 06/30/2024 Encounter Details Date Type Department Care Team ([facility] st Contact Info) Description 06/30/2024 Telephone [facility] MEDICINE [address] [place], [place] [phone] Fiorella Calvo ANP 230 [place] [address] PT1 Social History Tobacco Use Types Packs/Day Years [...] encounter Miscellaneous Notes * Telephone Encounter - Leisa Limon - 06/30/2024 12:07 PM EDT Patient calling requesting PT1 Home Address verified: Y/N: Yes Provider name or facility name: [facility] Radiology - [address] [place] [id number] Escort needed: Y/N: No Do you have a wheelchair: Y/N: No If yes- Manual or electric: N/A Visits: (2x monthly) documented in this encounter Plan of Treatment Upcoming Encounters Date Type Department Care Team (Late st Contact Info) Description 12/29/2024 2:30 PM EDT Office Visit [facility] OPTOMETRY [address] [place] [address] Evelia Godwin, OD [address] [place] [address] 01/12/2025 1:30 PM EDT Office Visit [facility] MEDICINE 230 [place] [address] Fiorella Calvo ANP 230 [place] [address] documented as of this encounter Goals Goal Patient Goal Type Associated Problems Recent Progress Patient-Stated? Author Quit using tobacco (cigarettes, smokeless, etc) Tobacco Use No Kolby Morin, Love documented as of this encounter Visit Diagnoses Not on filedocumented in this encounter Additional Health Concerns Assessment Noted Time PHQ-9 Depression Total Score: 26 025 11:43 AM EST documented as of this encounter Care Teams Behavioral Specialist Relationship Specialty Start Date End Date Fiorella Calvo ANP [address] [place] [address] PCP - General Family Medicine 11/04/20 Kolby Morin, PharmD [address] [place] [address] Pharmacist Internal Medicine 08/19/23 documented as of this encounter
--- OUTSIDE RECORDS SUMMARY | 2024-12-16 13:42 | XMS_ITS | Encounter Summary ---
Author Organization [facility] Address [address] [facility] 7 [place] [address] Care Team Providers Care Manuscripts Archivist Name Role Phone Fiorella Calvo Primary Care Provider [phone] Kolby Morin PharmD Unavailable [phone] Reason for Visit * Reason Comments Med Refill Encounter Details Date Type Department Care Team (Late st Contact Info) Description 04/17/2024 Refill [facility] MEDICINE 230 [place], [place] [phone] Fiorella Calvo ANP 230 [place] [address] Type 2 diabetes mellitus with hyperlipidemia ([facility]/HCC) ([facility]) Social History Tobacco Use Types Packs/Day [...] the past 12 months, has t he [employer], gas, oil or water company threatened to [...] Total Score 19 04/17/2024 11:43 AM EST Kayce Lopez [place] documented as of this encounter Miscellaneous Notes * Telephone Encounter - Monica Fitzgerald RN - 04/20/2024 11:19 AM EST T/C to pt via BLS [facility] #[id number]. Pt reports the following blood glucose readings after increasing Tresiba dose: 235, 245, 233, 164, 140. Pt agrees to f/u with pcp as scheduled and call [facility] prn symptoms. * Telephone Encounter - Monica Fitzgerald RN - 04/20/2024 11:13 AM EST ----- Message from Jyoti Melendez sent at 04/17/2024 11:38 AM EST ----- Tresiba dose adjust to 14 units nightly , please call pt on Saturday for glucose readings over the weekend Thank you documented in this encounter Plan of Treatment Upcoming Encounters Date Type Department Care Team (Late st Contact Info) Description 12/29/2024 2:30 PM EDT Office Visit [facility] OPTOMETRY [address] [place] [address] Evelia Godwin, OD [address] [place] [address] 01/12/2025 1:30 PM EDT Office Visit [facility] MEDICINE 230 [place] [address] Fiorella Calvo ANP [address] [place] [address] documented as of this encounter Goals Goal [...] documented as of this encounter Care Teams Manuscripts Archivist Relationship Specialty Start Date End Date Fiorella Calvo ANP 230 [place] [address] PCP - General Family Medicine 11/04/20 Kolby Morin PharmD 230 [place] [address] Pharmacist Internal Medicine 08/19/23 documented as of this encounter
--- OUTSIDE RECORDS SUMMARY | 2024-12-16 13:42 | XMS_ITS | Encounter Summary ---
Author Organization [employer] [facility] Address [address] [facility] 7 [place] [address] Care Team Providers Care Suction Dredge Dumping Supervisor Name Role Phone Fiorella Calvo Primary Care Provider Kolby Morin PharmD Unavailable Reason for Visit * Reason Onset Date Comments Call Back Request 08/02/2023 Encounter Details Date Type Department Care Team ([facility] st Contact Info) Description 08/02/2023 Telephone [facility] MEDICINE 230 [place], [place] [phone] Fiorella Calvo ANP 230 [place] [address] Call Back Request Social History Tobacco Use [...] encounter Miscellaneous Notes * Telephone Encounter - Lew Watt - 08/02/2023 9:57 AM EDT Tc from patient calling stated was advised to return call however junior technical writer does not see anything documented on patients chart documented in this encounter Plan of Treatment Upcoming Encounters Date Type Department Care Team (Late st Contact Info) Description 12/29/2024 2:30 PM EDT Office Visit [facility] OPTOMETRY [address] [place] [address] Светланаyue Evelia, OD [address] [place] [address] 01/12/2025 1:30 PM EDT Office Visit [facility] MEDICINE 230 [place] [address] Fiorella Calvo ANP [address] [place] [address] documented as of this encounter Visit Diagnoses Not on filedocumented in this encounter Additional Health Concerns Assessment Noted Time PHQ-9 Depression Total Score: 26 024 2:50 PM EDT documented as of this encounter Care Teams Suction Dredge Dumping Supervisor Relationship Specialty Start Date End Date Fiorella Calvo ANP [address] [place] [address] PCP - General Family Medicine 11/04/20 Kolby Morin, KariD [address] [place] [address] Pharmacist Internal Medicine 08/19/23 documented as of this encounter
--- OUTSIDE RECORDS SUMMARY | 2024-12-16 13:42 | XMS_ITS | Encounter Summary ---
Author Organization [employer] [facility] Address [address] [facility] 7t [place] [address] Care Team Providers Care Dust Handler Name Role Phone Fiorella Calvo Primary Care Provider [phone] Kolby Morin PharmD Unavailable [phone] Encounter Details Date Type Department Care Team (Late Contact Info) Description 11/05/2023 Orders Only [facility] MEDICINE [address] [place] [address] Fiorella Calvo ANP 230 [place] [address] Social History Tobacco Use Types Packs/Day Years [...] 12/29/2024 2:30 PM EDT Office Visit [facility] OPTOMETRY [address] [place], [place] [phone] Evelia Godwin, OD [address] [place] [address] 01/12/2025 1:30 PM EDT Office Visit [facility] MEDICINE 230 [place] [address] Fiorella Calvo ANP [address] [place] [address] documented as of this encounter Goals Goal Patient Goal Type Associated Problems Recent Progress Patient-Stated? Author Quit using tobacco (cigarettes, smokeless, etc) Tobacco Use No Kolby Morin, PharmD documented as of this encounter Visit Diagnoses Not on filedocumented in this encounter Additional Health Concerns Assessment Noted Time PHQ-9 Depression Total Score: 20 09/23/ 024 9:15 AM EDT documented as of this encounter Care Teams Dust Handler Relationship Specialty Start Date End Date Fiorella Calvo ANP [address] [place] [address] PCP - General Family Medicine 11/04/20 Kolby Morin, PharmD [address] [place] [address] [phone] Pharmacist Internal Medicine 08/19/23 documented as of this encounter
--- OUTSIDE RECORDS SUMMARY | 2024-12-16 13:42 | XMS_ITS | Encounter Summary ---
Author Organization [employer] [facility] Address [address] [facility] 7 [place] [address] Care Team Providers Care Manufacturing Manager Name Role Phone Fiorella Calvo Primary Care Provider [phone] Kolby Morin PharmD Unavailable [phone] Reason for Visit * Reason Onset Date Comments Med Refill 04/16/2024 Encounter Details Date Type Department Care Team (Late st Contact Info) Description 04/16/2024 Refill [facility] MEDICINE [address] [place], [place] [phone] Fiorella Calvo ANP 230 [place] [address] Type 2 diabetes mellitus with hyperlipidemia (CMS/HCC) ([facility]/HCC) (Primary Dx) Social History Tobacco Use Types Packs/Day Years [...] the past 12 months, has t he [employer], gas, oil or water company threatened to [...] Questionnaire-9 Score Answer Date of Assessment Author 26 04/17/2024 11:43 AM Neeta Duarte [place] * [...] Description 12/29/2024 2:30 PM EDT Office Visit [facility] OPTOMETRY [address] [place] [address] Светланаyue Evelia, OD 267 [place] [address] 01/12/2025 1:30 PM EDT Office Visit [facility] MEDICINE 230 [place] [address] Fiorella Calvo ANP [address] [place] [address] documented as of this encounter Goals Goal Patient Goal Type Associated Problems Recent Progress Patient-Stated? Author Quit using tobacco (cigarettes, smokeless, etc) Tobacco Use No Kolby Morin, PharmD documented as of this encounter Visit Diagnoses Diagnosis Type 2 diabetes mellitus with hyperlipidemia (HCC)- Primary documented in this encounter Additional Health Concerns Assessment Noted Time PHQ-9 Depression Total Score: 20 024 9:15 AM EDT documented as of this encounter Care Teams Manufacturing Manager Relationship Specialty Start Date End Date Fiorella Calvo ANP [address] [place] [address] PCP - General Family Medicine 11/04/20 Kolby Morin, PharmD [address] [place] [address] Pharmacist Internal Medicine 08/19/23 documented as of this encounter
--- OUTSIDE RECORDS SUMMARY | 2024-12-16 13:42 | XMS_ITS | Encounter Summary ---
Author Organization [employer] [facility] Address [address] [facility] 7t [place] [address] Care Team Providers Care Nematologist Name Role Phone Fiorella Calvo Primary Care Provider [phone] Kolby Morin PharmD Unavailable [phone] Reason for Visit * Reason Comments Med Refill Encounter Details Date Type Department Care Team (Late st Contact Info) Description 09/18/2023 Refill [facility] MEDICINE [address] [place] [address] Fiorella Calvo ANP 230 [place] [address] Pain and swelling of left knee Social [...] Description 12/29/2024 2:30 PM EDT Office Visit [facility] OPTOMETRY [address] [place] [address] Evelia Godwin OD [address] [place] [address] 01/12/2025 1:30 PM EDT Office Visit [facility] MEDICINE [address] [place] [address] Fiorella Calvo ANP 230 [place] [address] documented as of this encounter Goals Goal Patient Goal Type Associated Problems Recent Progress Patient-Stated? Author Quit using tobacco (cigarettes, smokeless, etc) Tobacco Use No Kolby Morin, PharmD documented as of this encounter Visit Diagnoses Diagnosis Pain and swelling of left knee documented in this encounter Additional Health Concerns Assessment Noted Time PHQ-9 Depression Total Score: 23 08/05/ 024 2:49 PM EDT documented as of this encounter Care Teams Nematologist Relationship Specialty Start Date End Date Fiorella Calvo ANP [address] [place] [address] PCP - General Family Medicine 11/04/20 Kolby Morin, PharmD [address] [place] [phone] Pharmacist Internal Medicine 08/19/23 documented as of this encounter
--- OUTSIDE RECORDS SUMMARY | 2024-12-16 13:42 | XMS_ITS | Encounter Summary ---
Author Organization [employer] [facility] Address [address] [facility] 7 [place] [address] Care Team Providers Care Manager Trade Name Role Phone Fiorella Calvo Primary Care Provider [phone] Kolby Morin PharmD Unavailable [phone] Reason for Visit * Reason Onset Date Comments Returning call 10/28/2023 Encounter Details Date Type Department Care Team (Late st Contact Info) Description 10/28/2023 Telephone [facility] MEDICINE 230 [place], [place] [phone] Fiorella Calvo ANP 230 [place] [address] Returning call Social History Tobacco Use Types Packs/Day Years [...] * Telephone Encounter - Roman Spencer - 10/28/2023 4:12 PM EDT Tc from pt returning call regarding message below. CHW Aparna Spencer placed outbound call to patient for follow up call on SDOH needs. No answer at this time. LVM introducing herself from [facility] CM Department. Requested call back. Please contact pt at [phone]. (Danish Speaker) documented in this encounter Plan of Treatment Upcoming Encounters Date Type Department Care Team (Late st Contact Info) Description 12/29/2024 2:30 PM EDT Office Visit [facility] OPTOMETRY [address] [place] [address] Tarka, Evelia, OD 267 [place] [address] 01/12/2025 1:30 PM EDT Office Visit [facility] MEDICINE 230 [place] [address] Fiorella Calvo ANP 230 [place] [address] documented as of this encounter Goals Goal Patient Goal Type Associated Problems Recent Progress Patient-Stated? Author Quit using tobacco (cigarettes, smokeless, etc) Tobacco Use No Kolby Morin, Love documented as of this encounter Visit Diagnoses Not on filedocumented in this encounter Additional Health Concerns Assessment Noted Time PHQ-9 Depression Total Score: 20 024 9:15 AM EDT documented as of this encounter Care Teams Manager Trade Relationship Specialty Start Date End Date Fiorella Calvo ANP [address] [place] [address] PCP - General Family Medicine 11/04/20 Kolby Morin, PharmD [address] [place] [address] Pharmacist Internal Medicine 08/19/23 documented as of this encounter
--- OUTSIDE RECORDS SUMMARY | 2024-12-16 13:42 | XMS_ITS | Encounter Summary ---
Author Organization [employer] [facility] Address [address] [place] [address] 7 [place] [address] Care Team Providers Care Cone Machine Operator Name Role Phone Fiorella Calvo Primary Care Provider [phone] Kolby Morin PharmD Unavailable [phone] Reason for Visit * Reason Onset Date Comments Follow Up Extended 04/24/23 04/22/2023 Encounter Details Date Type Department Care Team (Late st Contact Info) Description 04/22/2023 Telephone [facility] MEDICINE 230 [place], [place] [phone] Fiorella Calvo ANP 230 [place] [address] Follow Up Extended 04/24/23 Social History Tobacco Use Types Packs/Day Years [...] * Telephone Encounter - Roman Spencer - 04/22/2023 10:17 AM EST Tc from pt wanting to reschedule follow ep ext 04/24/23. Marine Fitter did not see anything available. Please contact pt at [phone]. documented in this encounter Plan of Treatment Upcoming Encounters Date Type Department Care Team (Late st Contact Info) Description 12/29/2024 2:30 PM EDT Office Visit [facility] OPTOMETRY [address] [place] [address] СветланаyueEvelia, OD [address] [place] [address] 01/12/2025 1:30 PM EDT Office Visit [facility] MEDICINE [address] [place] [address] Fiorella Calvo ANP [address] [place] [address] documented as of this encounter Visit Diagnoses Not on filedocumented in this encounter Care Teams Cone Machine Operator Relationship Specialty Start Date End Date Fiorella Calvo ANP [address] [place] [address] PCP - General Family Medicine 11/04/20 Kolby Morin, KariD [address] [place] [phone] Pharmacist Internal Medicine 08/19/23 documented as of this encounter
--- OUTSIDE RECORDS SUMMARY | 2024-12-16 13:42 | XMS_ITS | Encounter Summary ---
Author Organization [employer] [facility] Address 75 [facility] 7 [place] [address] Care Team Providers Care Application Software Developer Name Role Phone Fiorella Calvo Primary Care Provider [phone] Kolby Morin PharmD Unavailable [phone] Reason for Visit * Reason Onset Date Comments PT1 04/23/2024 Encounter Details Date Type Department Care Team ([facility] st Contact Info) Description 04/23/2024 Telephone [facility] 230 [place], [place] [phone] Fiorella Calvo ANP 230 [place] [address] PT1 Social History Tobacco Use Types Packs/Day [...] * Telephone Encounter - Leisa Limon - 04/23/2024 11:36 AM EST Patient calling requesting PT1 Home Address verified: Y/N: Yes Provider name or facility name: Irene [address] [address] Escort needed: Y/N: No Do you have a wheelchair: Y/N: No If yes- Manual or electric: N/A Visits: (2x monthly) documented in this encounter Plan of Treatment Upcoming Encounters Date Type Department Care Team (Late st Contact Info) Description 12/29/2024 2:30 PM EDT Office Visit [facility] [address] [place], [place] [phone] Evelia Gdowin, OD 267 [place] [address] 01/12/2025 1:30 PM EDT Office Visit [facility] 230 [place] [address] Fiorella Calvo ANP 230 [place] [address] documented as of this encounter Goals Goal Patient Goal Type Associated Problems Recent Progress Patient-Stated? Author Quit using tobacco (cigarettes, smokeless, etc) Tobacco Use No Kolby Morin, KariD documented as of this encounter Visit Diagnoses Not on filedocumented in this encounter Additional Health Concerns Assessment Noted Time PHQ-9 Depression Total Score: 26 025 11:43 AM EST documented as of this encounter Care Teams Application Software Developer Relationship Specialty Start Date End Date Fiorella Calvo ANP 230 [place] [address] PCP - General Family Medicine 11/04/20 Kolby Morin, PharmD [address] [place] [address] Pharmacist Internal Medicine 08/19/23 documented as of this encounter
--- OUTSIDE RECORDS SUMMARY | 2024-12-16 13:42 | XMS_ITS | Encounter Summary ---
Author Organization [employer] [facility] Address 75 [facility] 7 [place] [address] Care Team Providers Care Waiter/Waitress Tourist Class Name Role Phone Fiorella Calvo Primary Care Provider [phone] Kolby Morin PharmD Unavailable Reason for Visit * Reason Onset Date Comments Med Refill 04/15/2024 Encounter Details Date Type Department Care Team (Late st Contact Info) Description 04/15/2024 Refill [facility] 230 [place], [place] [phone] Fiorella Calvo ANP 230 [place] [address] Type 2 diabetes mellitus with hyperlipidemia (CMS/HCC) ([facility]/HCC); Diabetic polyneuropathy associated with type 2 [...] 2:30 PM EDT Office Visit [facility] OPT[facility] 267 [place] [address] Evelia Godwin, OD 267 [place] [address] 01/12/2025 1:30 PM EDT Office Visit [facility]INE 230 [place] [address] Fiorella Calvo ANP 230 [place] [address] documented as of this encounter Goals Goal [...] documented as of this encounter Care Teams Waiter/Waitress Tourist Class Relationship Specialty Start Date End Date Fiorella Calvo ANP [address] [place] [address] PCP - General Family Medicine 11/04/20 Kolby Morin, PharmD [address] [place] [phone] Pharmacist Internal Medicine 08/19/23 documented as of this encounter
--- OUTSIDE RECORDS SUMMARY | 2024-12-16 13:42 | XMS_ITS | Encounter Summary ---
Author Organization [employer] [facility] Address 75 [facility] 7 [place] [address] Care Team Providers Care Ticket Worker Name Role Phone Fiorella Calvo Primary Care Provider [phone] Kolby Morin PharmD Unavailable [phone] Reason for Visit * Reason Onset Date Comments Med Refill 03/23/2024 Encounter Details Date Type Department Care Team (Late st Contact Info) Description 03/23/2024 Refill [facility] MEDICINE 230 [place], [place] [phone] Fiorella Calvo ANP 230 [place] [address] Type 2 diabetes mellitus with hyperlipidemia (CMS/HCC) ([facility]/HCC); Diabetic polyneuropathy associated with type 2 [...] 12/29/2024 2:30 PM EDT Office Visit [facility] OPTOMETRY 267 [place] [address] Evelia Godwin, OD 267 [place] [address] 01/12/2025 1:30 PM EDT Office Visit [facility] MEDICINE 230 [place] [address] Fiorella Calvo, ANP 230 [place] [address] documented as of this encounter Goals Goal [...] documented as of this encounter Care Teams Ticket Worker Relationship Specialty Start Date End Date Fiorella Calvo ANP 230 [place] [address] PCP - General Family Medicine 11/04/20 Kolby Morin, Love 230 [place] [address] Pharmacist Internal Medicine 08/19/23 documented as of this encounter
--- OUTSIDE RECORDS SUMMARY | 2024-12-16 13:42 | XMS_ITS | Encounter Summary ---
Author Organization [employer] [facility] Address 75 [facility] 7 [place] [address] Care Team Providers Care Public Service Administrator Name Role Phone Fiorella Calvo Primary Care Provider Kolby Morin PharmD Unavailable [phone] Reason for Visit * Reason Onset Date Comments Nurse Triage 12/16/2024 Encounter Details Date Type Department Care Team ([facility] st Contact Info) Description 12/16/2024 Telephone [facility] 230 [place], [place] [phone] Fiorella Calvo ANP 230 [place] [address] Nurse Triage Social History Tobacco Use Types [...] with others, in a [place], in [place] [facility] [place], living outside on the street, on a [...] encounter Miscellaneous Notes * Telephone Encounter - Evita Pickard RN - 12/16/2024 8:40 AM EDT No technical maintenance specialist needed as this specifications writer speaks Faroese. Call returned to Teena Spears to triage below at [phone]. Pt alert, speaking in clear full sentences. Pt reports having rigth shoulder pain and back pain. Pt states that when is coughing up bright red blood. Pt denies any fever. Pt endorses SOB and chest pain as well. Pt advised of disposition, agrees to seek [facility] now for evaluation. Sent to team for ER status check PRN. Protocol Used: Coughing Up Blood (Adult) Protocol-Based Disposition: Go to ED Now Positive Triage Question: * Chest pain * All higher-acuity triage questions were negative Care Advice Discussed: * Reasons To Call Back - You become worse * Telephone Encounter - Som Sims - 12/16/2024 8:18 AM EDT Symptoms: Coughing Up Blood, Abdominal Pain - Female - Not , Chest Pain - Adult Outcome: Transfer to a nurse or provider NOW! Reason: Severe pain now The caller accepted this outcome. Contact pt at [phone] (slovenian) documented in this encounter Plan of Treatment Upcoming Encounters Date Type Department Care Team (Late st Contact Info) Description 12/29/2024 2:30 PM EDT Office Visit [facility] 267 [place], [place] [phone] Tarka, Evelia, OD 267 [place] [address] 01/12/2025 1:30 PM EDT Office Visit [facility] 230 [place] [address] Fiorella Calvo ANP 230 [place] [address] documented as of this encounter Goals Goal Patient Goal Type Associated Problems Recent Progress Patient-Stated? Author Quit using tobacco (cigarettes, smokeless, etc) Tobacco Use No Kolby Morin, Love documented as of this encounter Visit Diagnoses Not on filedocumented in this encounter Additional Health Concerns Assessment Noted Time PHQ-9 Depression Total Score: 26 025 11:43 AM EST documented as of this encounter Care Teams Public Service Administrator Relationship Specialty Start Date End Date Fiorella Calvo ANP [address] [place] [address] PCP - General Family Medicine 11/04/20 Kolby Morin, KariD [address] [place] [address] Pharmacist Internal Medicine 08/19/23 documented as of this encounter
--- OUTSIDE RECORDS SUMMARY | 2024-12-16 13:42 | XMS_ITS | Encounter Summary ---
Author Organization [employer] [facility] Address 75 [facility] 7 [place] [address] Care Team Providers Care Delivery Driver/Supervisor Name Role Phone Fiorella Calvo Primary Care Provider [phone] Kolby Morin PharmD Unavailable [phone] Reason for Visit * Reason Onset Date Comments PT1 04/15/2024 Encounter Details Date Type Department Care Team ([facility] st Contact Info) Description 04/15/2024 Telephone [facility]INE 230 [place], [place] [phone] Fiorella Calvo ANP 230 [place] [address] PT1 Social History Tobacco Use Types Packs/Day [...] with others, in a hotel, in a assisted, living outside on the street, on a [...] * Telephone Encounter - Leisa Limon - 04/15/2024 4:01 PM EST Patient calling requesting PT1 Home Address verified: Y/N: Yes Provider name or facility name: [facility] - [address], [place] [address] Escort needed: Y/N: No Do you have a wheelchair: Y/N: No If yes- Manual or electric: N/A Visits: (2x monthly) Patient calling requesting PT1 Home Address verified: Y/N: Yes Provider name or facility name: [address] [address]. Escort needed: Y/N: No Do you have a wheelchair: Y/N: No If yes- Manual or electric: N/A Visits: (2x monthly) Patient calling requesting PT1 Home Address verified: Y/N: Yes Provider name or facility name: [address] Floor, [place] [address] Escort needed: Y/N: No Do you have a wheelchair: Y/N: No If yes- Manual or electric: N/A Visits: (2x monthly) documented in this encounter Plan of Treatment Upcoming Encounters Date Type Department Care Team (Late st Contact Info) Description 12/29/2024 2:30 PM EDT Office Visit [facility] 267 [place] [address] Evelia Godwin, OD 267 [place] [address] 01/12/2025 1:30 PM EDT Office Visit [facility] 230 [place] [address] Fiorella Calvo ANP 230 [place] [address] documented as of this encounter Goals Goal Patient Goal Type Associated Problems Recent Progress Patient-Stated? Author Quit using tobacco (cigarettes, smokeless, etc) Tobacco Use No Kolby Morin, KariD documented as of this encounter Visit Diagnoses Not on filedocumented in this encounter Additional Health Concerns Assessment Noted Time PHQ-9 Depression Total Score: 20 024 9:15 AM EDT documented as of this encounter Care Teams Delivery Driver/Supervisor Relationship Specialty Start Date End Date Fiorella Calvo ANP 230 [place] [address] PCP - General Family Medicine 11/04/20 Kolby Morin, PharmD 230 [place] [address] Pharmacist Internal Medicine 08/19/23 documented as of this encounter
--- OUTSIDE RECORDS SUMMARY | 2024-12-16 13:43 | XMS_ITS | Encounter Summary ---
Author Organization [employer] [facility] Address 75 [facility] 7 [place] [address] Care Team Providers Care District Manager Name Role Phone Fiorella Calvo Primary Care Provider [phone] Kolby Morin PharmD Unavailable [phone] Reason for Visit * Reason Onset Date Comments Med Refill 11/17/2024 Encounter Details Date Type Department Care Team (Late st Contact Info) Description 11/17/2024 Refill [facility] 230 [place], [place] [phone] Fiorella Calvo ANP 230 [place] [address] Type 2 diabetes mellitus with obesity ([facility]/HCC) ([facility]) Social History Tobacco Use Types [...] the past 12 months, has t he [employer], gas, oil or water company threatened to [...] Description 12/29/2024 2:30 PM EDT Office Visit [facility] [address] [place] [address] Evelia Godwin, OD 267 [place] [address] 01/12/2025 1:30 PM EDT Office Visit [facility] 230 [place] [address] Fiorella Calvo, ANP 230 [place] [address] documented as of this encounter Goals Goal Patient Goal Type Associated Problems Recent Progress Patient-Stated? Author Quit using tobacco (cigarettes, smokeless, etc) Tobacco Use No Kolby Morin, KariD documented as of this encounter Visit Diagnoses Diagnosis Type 2 diabetes mellitus with obesity documented in this encounter Additional Health Concerns Assessment Noted Time PHQ-9 Depression Total Score: 26 01/31/2 025 11:43 AM EST documented as of this encounter Care Teams District Manager Relationship Specialty Start Date End Date Fiorella Calvo ANP 230 [place] [address] PCP - General Family Medicine 11/04/20 Kolby Morin PharmD 230 [place] [address] Pharmacist Internal Medicine 08/19/23 documented as of this encounter
--- OUTSIDE RECORDS SUMMARY | 2024-12-16 13:43 | XMS_ITS | Encounter Summary ---
Author Organization [employer] [facility] Address 75 [facility] 7 [place] [address] Care Team Providers Care Tennis Net Maker Name Role Phone Fiorella Calvo Primary Care Provider [phone] Kolby Morin PharmD Unavailable [phone] Reason for Visit * Reason Onset Date Comments Med Refill 11/30/2024 Encounter Details Date Type Department Care Team (Late st Contact Info) Description 11/30/2024 Refill [facility] MEDICINE 230 [place], [place] [phone] Fiorella Calvo ANP 230 [place] [address] Type 2 diabetes mellitus with hyperlipidemia (CMS/HCC) ([facility]/HCC); Diabetic polyneuropathy associated with type 2 diabetes [...] Description 12/29/2024 2:30 PM EDT Office Visit [facility] [address] [place] [address] Evelia Godwin, OD 267 [place] [address] 01/12/2025 1:30 PM EDT Office Visit [facility] 230 [place] [address] Fiorella Calvo, ANP 230 [place] [address] documented as of this encounter Goals Goal [...] documented as of this encounter Care Teams Tennis Net Maker Relationship Specialty Start Date End Date Fiorella Calvo ANP 230 [place] [address] PCP - General Family Medicine 11/04/20 Kolby Morin, Love 230 [place] [address] Pharmacist Internal Medicine 08/19/23 documented as of this encounter
--- OUTSIDE RECORDS SUMMARY | 2024-12-16 13:43 | XMS_ITS | Encounter Summary ---
Author Organization [employer] [facility] Address 75 [facility] 7 [place] [address] Care Team Providers Care Communications Department Chair Name Role Phone Fiorella Calvo Primary Care Provider [phone] Kolby Morin PharmD Unavailable [phone] Reason for Visit * Reason Onset Date Comments Med Refill 11/06/2024 Encounter Details Date Type Department Care Team ([facility] st Contact Info) Description 11/06/2024 Telephone [facility] 230 [place], [place] [phone] Fiorella Calvo ANP 230 [place] [address] Med Refill Social History Tobacco Use Types Packs/Day Years [...] encounter Miscellaneous Notes * Telephone Encounter - Zofia Sosa RN - 11/06/2024 4:40 PM EDT Request sent to PCP * Telephone Encounter - Som Sims - 11/06/2024 3:46 PM EDT TC from pt requesting medication refill. Medications needing refill : traMADol (Ultram) 50 MG tablet To be sent to: [facility]/pharmacy #[id number] [place], [place] - [address] [facility] documented in this encounter Plan of Treatment Upcoming Encounters Date Type Department Care Team (Late st Contact Info) Description 12/29/2024 2:30 PM EDT Office Visit [facility] [address] [place], [place] [phone] Evelia Godwin, OD [address] [place] [address] 01/12/2025 1:30 PM EDT Office Visit [facility] 230 [place] [address] Fiorella Calvo ANP [address] [place] [address] documented as of this encounter Goals Goal Patient Goal Type Associated Problems Recent Progress Patient-Stated? Author Quit using tobacco (cigarettes, smokeless, etc) Tobacco Use No Kolby Morin, PharmD documented as of this encounter Visit Diagnoses Not on filedocumented in this encounter Additional Health Concerns Assessment Noted Time PHQ-9 Depression Total Score: 26 025 11:43 AM EST documented as of this encounter Care Teams Communications Department Chair Relationship Specialty Start Date End Date Fiorella Calvo ANP [address] [place] [address] PCP - General Family Medicine 11/04/20 Kolby Morin, PharmD [address] [place] [address] Pharmacist Internal Medicine 08/19/23 documented as of this encounter
--- OUTSIDE RECORDS SUMMARY | 2024-12-16 13:43 | XMS_ITS | Encounter Summary ---
Author Organization [employer] [facility] Address 75 [facility] 7 [place] [address] Care Team Providers Care Redevelopment Manager Name Role Phone Fiorella Calvo Primary Care Provider [phone] Kolby Morin PharmD Unavailable [phone] Reason for Visit * Reason Onset Date Comments Med Refill 11/13/2024 Encounter Details Date Type Department Care Team (Late st Contact Info) Description 11/13/2024 Refill [facility] MEDICINE 230 [place], [place] [phone] Fiorella Calvo ANP 230 [place] [address] Type 2 diabetes mellitus with obesity ([facility]/HCC) ([facility]) Social History Tobacco Use [...] the past 12 months, has t he [employer], gas, oil or water company threatened to [...] Description 12/29/2024 2:30 PM EDT Office Visit [facility] OPTOMETRY [address] [place] [address] Evelia Godwin, OD 267 [place] [address] 01/12/2025 1:30 PM EDT Office Visit [facility] MEDICINE 230 [place] [address] Fiorella Calvo, ANP 230 [place] [address] documented as of this encounter Goals Goal [...] documented as of this encounter Care Teams Redevelopment Manager Relationship Specialty Start Date End Date Fiorella Calvo ANP [address] [place] [address] PCP - General Family Medicine 11/04/20 Kolby Morin PharmD 230 [place] [address] Pharmacist Internal Medicine 08/19/23 documented as of this encounter
--- OUTSIDE RECORDS SUMMARY | 2024-12-16 13:43 | XMS_ITS | Encounter Summary ---
Author Organization [employer] [facility] Address 75 [facility] 7t [place] [address] Care Team Providers Care Roastmaster Name Role Phone Fiorella Calvo Primary Care Provider [phone] Kolby Morin PharmD Unavailable [phone] Reason for Visit * Reason Comments Med Refill Encounter Details Date Type Department Care Team (Late st Contact Info) Description 10/16/2024 Refill [facility] MEDICINE 230 [place], [place] [phone] Name, MD Jacob 230 [place] [address] Chronic pain of left knee; Osteoarthritis of left knee, unspecified osteoarthritis type; Complex tear of meniscus of left knee as current injury, unspecified meniscus, subsequent encounter Social History Tobacco Use Types Packs/Day Years [...] with others, in a hotel, in a care home, living outside on the street, on [...] the past 12 months, has t he [employer], gas, oil or water company threatened to [...] encounter Miscellaneous Notes * Telephone Encounter - RIANA Wahl - 10/16/2024 4:58 PM EDT Sent already documented in this encounter Plan of Treatment Upcoming Encounters Date Type Department Care Team (Late st Contact Info) Description 12/29/2024 2:30 PM EDT Office Visit [facility] OPTOMETRY 267 [place] [address] TarEvelia truner, OD 267 [place] [address] 01/12/2025 1:30 PM EDT Office Visit [facility] MEDICINE 230 [place] [address] Fiorella Calvo ANP 230 [place] [address] documented as of this encounter Goals Goal Patient Goal Type Associated Problems Recent Progress Patient-Stated? Author Quit using tobacco (cigarettes, smokeless, etc) Tobacco Use No Kolby Morin PharmD documented as of this encounter Visit Diagnoses Diagnosis Chronic pain of left knee Osteoarthritis of left knee, unspecified osteoarthritis type Complex tear of meniscus of left knee as current injury, unspecified meniscus, subsequent encounter documented in this encounter Additional Health Concerns Assessment Noted Time PHQ-9 Depression Total Score: 26 025 11:43 AM EST documented as of this encounter Care Teams Roastmaster Relationship Specialty Start Date End Date Fiorella Calvo ANP 230 [place] [address] PCP - General Family Medicine 11/04/20 Kolby Morin, KariD 230 [place] [address] Pharmacist Internal Medicine 08/19/23 documented as of this encounter
--- OUTSIDE RECORDS SUMMARY | 2024-12-16 13:43 | XMS_ITS | Encounter Summary ---
Author Organization [employer] [facility] Address 75 [facility] 7t [place] [address] Care Team Providers Care Sales Agent Protective Service Name Role Phone Fiorella Calvo Primary Care Provider [phone] Kolby Morin PharmD Unavailable [phone] Reason for Visit * Reason Comments Med Refill Encounter Details Date Type Department Care Team (Late st Contact Info) Description 10/26/2024 Refill [facility] MEDICINE 230 [place], [place] [phone] Name, MD Jacob 230 [place] [address] Chronic pain of left knee; Osteoarthritis of [...] Description 12/29/2024 2:30 PM EDT Office Visit [facility] OPTOMETRY [address] [place] [address] Evelia Godwin, OD 267 [place] [address] 01/12/2025 1:30 PM EDT Office Visit [facility] MEDICINE 230 [place] [address] Fiorella Calvo, RIANA 230 [place] [address] documented as of this encounter Goals Goal [...] documented as of this encounter Care Teams Sales Agent Protective Service Relationship Specialty Start Date End Date Fiorella Calvo ANP 230 [place] [address] PCP - General Family Medicine 11/04/20 Kolby Morin PharmD 230 [place] [address] Pharmacist Internal Medicine 08/19/23 documented as of this encounter
--- OUTSIDE RECORDS SUMMARY | 2024-12-16 13:43 | XMS_ITS | Encounter Summary ---
Author Organization [employer] [facility] Address [address] [place] [address] 7 [place] [address] Care Team Providers Care Taximeter Repairer Name Role Phone Fiorella Calvo Primary Care Provider [phone] Kolby Morin PharmD Unavailable [phone] Reason for Visit * Reason Comments Med Refill Encounter Details Date Type Department Care Team (Late st Contact Info) Description 05/21/2023 Refill [facility] MEDICINE 230 [place] [address] Fiorella Calvo ANP 230 [place] [address] Social History Tobacco Use Types Packs/Day Years [...] 2:30 PM EDT Office Visit [facility] OPTOMETRY [address] [place] [address] Evelia Godwin OD 267 [place] [address] 01/12/2025 1:30 PM EDT Office Visit [facility] MEDICINE 230 [place] [address] Fiorella Calvo ANP 230 [place] [address] documented as of this encounter Visit Diagnoses Not on filedocumented in this encounter Care Teams Taximeter Repairer Relationship Specialty Start Date End Date Fiorella Calvo ANP 230 [place] [address] PCP - General Family Medicine 11/04/20 Kolby Morin, KariD [address] [place] [address] Pharmacist Internal Medicine 08/19/23 documented as of this encounter
--- OUTSIDE RECORDS SUMMARY | 2024-12-16 13:43 | XMS_ITS | Encounter Summary ---
Author Organization [employer] [facility] Address [address] [facility] 7t [place] [address] Care Team Providers Care Emblem Drawer In Name Role Phone Fiorella Calvo Primary Care Provider [phone] Kolby Morin PharmD Unavailable [phone] Reason for Visit * Reason Comments Med Refill Encounter Details Date Type Department Care Team (Late st Contact Info) Description 11/06/[address] [facility] MEDICINE [address] [place], [place] [phone] Fiorella Calvo ANP 230 [place] [address] Chronic pain of left knee; Osteoarthritis of [...] others, in a hotel, in a senior care, living outside on the street, on a [...] PM EDT Office Visit [facility] OPTOMETRY [address] [place] [address] Evelia Godwin, OD [address] [place] [address] 01/12/2025 1:30 PM EDT Office Visit [facility] MEDICINE [address] [place] [address] Fiorella Calvo, ANP 230 [place] [address] documented as of this encounter Goals Goal [...] documented as of this encounter Care Teams Emblem Drawer In Relationship Specialty Start Date End Date Fiorella Calvo, RIANA [address] [place] [address] PCP - General Family Medicine 11/04/20 Kolby Morin PharmD 230 [place] [address] Pharmacist Internal Medicine 08/19/23 documented as of this encounter
--- OUTSIDE RECORDS SUMMARY | 2024-12-16 13:43 | XMS_ITS | Encounter Summary ---
Author Organization [employer] [facility] Address [address] [place] [address] 7 [place] [address] Care Team Providers Care Video Network Engineer Name Role Phone Fiorella Calvo Primary Care Provider [phone] Kolby Morin PharmD Unavailable [phone] Reason for Visit * Reason Onset Date Comments Med Refill 05/15/2023 Encounter Details Date Type Department Care Team (Late st Contact Info) Description 05/15/2023 Refill [facility] MED & PEDS [address] [place] [address] Fiorella Calvo ANP 230 [place] [address] Allergic rhinitis, unspecified seasonality, unspecified trigger Social History Tobacco Use Types Packs/Day Years [...] Description 12/29/2024 2:30 PM EDT Office Visit [facility] OPTOMETRY [address] [place], [place] [phone] Evelia Godwin, OD [address] [place] [address] 01/12/2025 1:30 PM EDT Office Visit [facility] MEDICINE [address] [place] [address] Fiorella Calvo ANP 230 [place] [address] documented as of this encounter Visit Diagnoses Diagnosis Allergic rhinitis, unspecified seasonality, unspecified trigger documented in this encounter Care Teams Video Network Engineer Relationship Specialty Start Date End Date Fiorella Calvo ANP [address] [place] [address] PCP - General Family Medicine 11/04/20 Kolby Morin, KariD [address] [place] [phone] Pharmacist Internal Medicine 08/19/23 documented as of this encounter
--- OUTSIDE RECORDS SUMMARY | 2024-12-16 13:43 | XMS_ITS | Encounter Summary ---
Author Organization [employer] [facility] Address [address] [facility] 7t [place] [address] Care Team Providers Care Landfill Gas Collection Operator Name Role Phone Fiorella Calvo Primary Care Provider [phone] Kolby Morin PharmD Unavailable [phone] Reason for Visit * Reason Comments Med Refill Encounter Details Date Type Department Care Team (Late st Contact Info) Description 10/26/2024 Refill [facility] MEDICINE 230 [place], [place] [phone] Name, MD Jacob 230 [place] [address] Chronic pain of left knee; Osteoarthritis of [...] Description 12/29/2024 2:30 PM EDT Office Visit [facility] OPTOMETRY 267 [place] [address] Evelia Godwin, OD 267 [place] [address] 01/12/2025 1:30 PM EDT Office Visit [facility] MEDICINE [address] [place] [address] Fiorella Calvo, RIANA 230 [place] [address] documented as of this encounter Goals Goal [...] documented as of this encounter Care Teams Landfill Gas Collection Operator Relationship Specialty Start Date End Date Fiorella Calvo ANP 230 [place] [address] PCP - General Family Medicine 11/04/20 Kolby Morin PharmD 230 [place] [address] Pharmacist Internal Medicine 08/19/23 documented as of this encounter
--- OUTSIDE RECORDS SUMMARY | 2024-12-16 13:43 | XMS_ITS | Encounter Summary ---
Author Organization [employer] [facility] Address [address] [facility] 7 [place] [address] Care Team Providers Care Media Intern Name Role Phone Fiorella Calvo Primary Care Provider [phone] Kolby Morin PharmD Unavailable [phone] Reason for Visit * Reason Onset Date Comments Med Refill 11/25/2024 Encounter Details Date Type Department Care Team (Late st Contact Info) Description 11/25/2024 Refill [facility] MEDICINE 230 [place], [place] [phone] Fiorella Calvo ANP 230 [place] [address] Type 2 diabetes mellitus with hyperlipidemia (CMS/HCC) ([facility]/HCC); Diabetic polyneuropathy associated with type 2 [...] 2:30 PM EDT Office Visit [facility] OPTOMETRY [address] [place] [address] Evelia Godwin, OD 267 [place] [address] 01/12/2025 1:30 PM EDT Office Visit [facility] MEDICINE 230 [place] [address] Fiorella Calvo, ANP 230 [place] [address] documented as of this encounter Goals Goal [...] documented as of this encounter Care Teams Media Intern Relationship Specialty Start Date End Date Fiorella Cavlo ANP 230 [place] [address] PCP - General Family Medicine 11/04/20 Kolby Morin, Love 230 [place] [address] Pharmacist Internal Medicine 08/19/23 documented as of this encounter
--- OUTSIDE RECORDS SUMMARY | 2024-12-16 13:43 | XMS_ITS | Encounter Summary ---
Author Organization [employer] [facility] Address [address] [place] [address] 7 [place] [address] Care Team Providers Care Auto Care Center Manager Name Role Phone Fiorella Calvo Primary Care Provider [phone] Kolby Morin PharmD Unavailable [phone] Reason for Visit * Reason Onset Date Comments Med Refill 05/17/2023 Encounter Details Date Type Department Care Team (Late st Contact Info) Description 05/17/2023 Refill [facility] MEDICINE 230 [place], [place] [phone] Fiorella Calvo ANP 230 [place] [address] Diabetes mellitus type 2 in obese ([facility]) Social History Tobacco Use [...] Visit [facility] OPTOMETRY [address] [place] [address] Evelia Godwin, OD 267 [place] [address] 01/12/2025 1:30 PM EDT Office Visit [facility] MEDICINE 230 [place] [address] Fiorella Calvo ANP 230 [place] [address] documented as of this encounter Visit Diagnoses Diagnosis Diabetes mellitus type 2 in obese Type II or unspecified type diabetes mellitus without mention of complication, not stated as uncontrolled documented in this encounter Care Teams Auto Care Center Manager Relationship Specialty Start Date End Date Fiorella Calvo ANP [address] [place] [address] PCP - General Family Medicine 11/04/20 Kolby Morin, Love [address] [place] [phone] Pharmacist Internal Medicine 08/19/23 documented as of this encounter
[2024-12-16 14:47] VITALS: BP 133/77; PULSE 103; RESP 26; TEMP 36.9; O2SAT 93
--- NOTE | 2024-12-16 14:53 | MHC.EDTECH ---
EKG was done at 12 pm, There is a duplicate order.Rn aware.
[2024-12-16] MEDS: iohexoL 350 MG/ML 100 ML INFUS..BTL IV (17:03)
[2024-12-16] MEDS: Lactated Ringers 1,000 ML 999 ML IV (17:48)
[2024-12-16 18:20] VITALS: BP 128/80; PULSE 107; RESP 20; TEMP 36.6; O2SAT 96
[2024-12-16 18:54] VITALS: BP 128/80; PULSE 107; RESP 20; TEMP 36.6; O2SAT 96
== END 2024-12-16 18:57 | disposition home or self-care (01) ==
PROVIDERS: Emergency Provider Emergency Medicine; PCP Nurse Practitioner Primary Care
DX: J18.9 Pneumonia, unspecified organism (principal); R19.09 Other intra-abdominal and pelvic swelling, mass and lump; R00.0 Tachycardia, unspecified; R07.9 Chest pain, unspecified; R10.11 Right upper quadrant pain
CPT/HCPCS: 36415; 71046; 71275; 74177; 76705; 80048; 80076; 83605; 83735; 84484; 85025; 85379; 85610; 86140; 87040; 87077; 87205; 93005; 96361; 96374; 96375; 99284; J0696; J1885; J7120; Q9967

== ENCOUNTER → 2024-12-16 11:45 | Outpatient (BNV) | payer MEDICAID, SELFPAY | PROVIDERS: Emergency Provider Emergency Medicine; PCP Nurse Practitioner Primary Care; Visit Provider Internal Medicine | DX: R00.0 Tachycardia, unspecified (principal) | CPT/HCPCS: 93010 ==

== ENCOUNTER → 2024-12-16 12:40 | Outpatient (BNV) | payer MEDICAID, SELFPAY | PROVIDERS: Emergency Provider Emergency Medicine; PCP Nurse Practitioner Primary Care; Visit Provider Radiology Diagnostic Radiology | DX: N83.8 Other noninflammatory disorders of ovary, fallopian tube and broad ligament (principal); R91.8 Other nonspecific abnormal finding of lung field; R10.11 Right upper quadrant pain; R06.00 Dyspnea, unspecified | CPT/HCPCS: 71046; 71275; 74177; 76705 ==

== ENCOUNTER 2025-01-12 10:51 | Outpatient (REF) | payer MEDICAID, SELFPAY ==
[2025-01-13 09:57] LABS: Bacterial Vaginosis PCR NEGATIVE (Negative); Candida Group PCR DETECTED (Not Detect); Candida glab krusei PCR NOT DETECTED (Not Detect); Trichomonas vaginalis PCR NOT DETECTED (Not Detect)
== END 2025-01-12 10:52 | disposition home or self-care (01) ==
LOC: HO.HHCL 10:51
PROVIDERS: PCP Nurse Practitioner Primary Care; Visit Provider Optometrist
DX: Z20.2 Contact with and (suspected) exposure to infections with a predominantly sexual mode of transmission (principal); N89.8 Other specified noninflammatory disorders of vagina
CPT/HCPCS: 81515

== ENCOUNTER 2025-01-25 10:59 | Outpatient (REF) | payer MEDICAID, SELFPAY ==
--- OUTSIDE RECORDS SUMMARY | 2025-01-20 14:57 | XMS_ITS | Encounter Summary ---
Author Organization [facility] Address [id number] [place] [id number] Care Team Providers Care Mechanical Applications Engineer Name Role Phone Unavailable Primary Care Provider Unavailabl e Reason for Referral * Imaging (Routine) - Pending Review Specialty Diagnoses / Procedures Referred By Hattie sanders Referred To Contact Radiology Diagnoses Other nonspecific abnormal finding of lung field Procedures PET CT Skull to Mid Thigh Initial Fiorella Calvo NP [address] [place] [address] Phone: tel: fax: [facility] Referral ID Status Reason Start Date Expiration Date V isits Requested Visits Authorized [id number] Pending Review 01/19/2025 01/19/2026 1 1 Reason for Visit * Imaging (Routine) - Pending Review Specialty Diagnoses / Procedures Referred By Hattie sanders Referred To Contact Radiology Diagnoses Other nonspecific abnormal finding of lung field Procedures PET CT Skull to Mid Thigh Initial Fiorella Calvo NP [address] [place] [address] Phone: tel: fax: [facility] Referral ID Status Reason Start Date Expiration Date V isits Requested Visits Authorized [id number] Pending Review 01/19/2025 01/19/2026 1 1 Encounter Details Date Type Department Care Team (Latest Contact Info) Description 01/20/2025 2:57 PM EST Hospital Encounter [facility] PET Scan [address] [place] [phone] Other nonspecific abnormal finding of lung field Social History Tobacco Use Types Packs/Day Years Used Date Smoking Tobacco: Never Assessed Comments Unknown Sex and Gender Information Value Date Recorded Sex Assigned at Not on file Legal Sex Female 8:08 PM EST Gender Identity Not on file Sexual Orientation Not on file documented as of this encounter Plan of Treatment Not on file documented as of this encounter Procedures Procedure Name Priority Date/Time Associated Diagnosis Comments PET CT SKULL TO MID THIGH INITIAL Routine 01/20/2025 5:01 PM EST Other nonspecific abnormal finding of lung field documented in this encounter Results * PET CT Skull to Mid Thigh Initial (01/20/2025 5:01 PM EST) Anatomical Region Laterality Modality Body Radiographic Heather ging 01/25/2025 4:44 AM EST Impressions 01/25/2025 5:34 AM EST 1. Interval clearing of previously seen right lower lobe consolidation/lung mass without significant residual activity noted in this region 2. Previously described right adnexal mass does not demonstrate significant FDG activity in comparison to background. Correlation with pelvic ultrasound is recommended. 3. Nonspecific bilateral mild FDG activity within both breasts. Correlation with mammography is recommended. Please note: The CT was acquired at a low radiation dose settings. The images are of nondiagnostic quality and used solely for purposes of attenuation correction and slice localization for the PET scan. If a diagnostic CT study is desired it must be ordered separately. -------- FINAL REPORT -------- Dictated By: Andra Hinson Dictated Date: 01/25/2025 04:44 ET Assigned Physician: Andra Hinson Reviewed and Electronically Signed By: Andra Hinson Signed Date: 01/25/2025 05:34 ET Workstation ID: [id number] Transcribed By: Self Edit Transcribed Date: 01/25/2025 05:09 ET Narrative 01/25/2025 5:34 AM EST INDICATION: RIGHT LOWER LOBE LUNG MASS. Outside imaging demonstrated a right lower lobe lung mass and right adnexal mass. TECHNIQUE: FDG PET-CT imaging was performed from the skull bases through the thighs in a single acquisition with data set reconstructed in axial, coronal, and sagittal planes at the computer workstation with fused data from both the PET imaging study and attenuation correction CT. The CT portion of the examination was done strictly for attenuation correction and is not a true diagnostic CT examination. DLP: 851 mGy-cm Radiopharmaceutical: 13.1 mCi of F-18 FDG IV. Blood glucose: 149 mg/dl. COMPARISON: Correlation is made with prior CT of the chest abdomen and pelvis dated December 2024 from [facility]. FINDINGS: HEAD AND NECK: Nonspecific focal central FDG activity along the nasopharynx SUV Max 3.5. No FDG avid cervical or supraclavicular lymph nodes. THORAX: Interval clearing of previously seen right lower lobe consolidation/lung mass without significant residual activity noted in this region. Few tiny sub-5 mm pulmonary nodules without significant FDG activity due to small size. No significant FDG avid thoracic lymphadenopathy. For example, right paratracheal and subcarinal SUV max 1.9 (mediastinal blood pool SUV Max 2.6. Soft tissue attenuation along the anterior mediastinum which may represent residual thymic tissue or thymic hyperplasia without significant activity SUV max 1.2. Nonspecific bilateral mild FDG activity within both breasts SUV Max 1.6 on the left and 2.0 on the right. No FDG avid axillary lymph nodes. ABDOMEN/PELVIS: Previously described right adnexal mass does not demonstrate significant FDG activity in comparison to background SUV max 2.3. The uterus activity SUV max 2.1 and contralateral left adnexal activity SUV max 1.5. No significant FDG avid abdominal or pelvic lymph node activity. Low-attenuation lesions in the liver without significant FDG activity. Low-attenuation lesions in the right kidney without significant FDG activity. MUSCULOSKELETAL: No abnormal FDG activity. Procedure Note Andra Hinson MD - 01/25/2025 INDICATION: RIGHT LOWER LOBE LUNG MASS. Outside imaging demonstrated aright lower lobe lung mass and right adnexal mass. TECHNIQUE: FDG PET-CT imaging was performed from the skull bases throughthe thighs in a single acquisition with data set reconstructed in axial,coronal, and sagittal planes at the computer workstation with fused datafrom both the PET imaging study and attenuation correction CT. The CTportion of the examination was done strictly for attenuation correctionand is not a true diagnostic CT examination. DLP: 851 mGy-cm Radiopharmaceutical: 13.1 mCi of F-18 FDG IV. Blood glucose: 149 mg/dl. COMPARISON: Correlation is made with prior CT of the chest abdomen andpelvis dated December 2024 from [facility]. FINDINGS: HEAD AND NECK: Nonspecific focal central FDG activity along thenasopharynx SUV Max 3.5. No FDG avid cervical or supraclavicular lymphnodes. THORAX: Interval clearing of previously seen right lower lobeconsolidation/lung mass without significant residual activity noted inthis region. Few tiny sub-5 mm pulmonary nodules without significant FDGactivity due to small size. No significant FDG avid thoracic lymphadenopathy. For example, rightparatracheal and subcarinal SUV max 1.9 (mediastinal blood pool SUV Max2.6. Soft tissue attenuation along the anterior mediastinum which mayrepresent residual thymic tissue or thymic hyperplasia without significantactivity SUV max 1.2. Nonspecific bilateral mild FDG activity within both breasts SUV Max 1.6 onthe left and 2.0 on the right. No FDG avid axillary lymph nodes. ABDOMEN/PELVIS: Previously described right adnexal mass does notdemonstrate significant FDG activity in comparison to background SUV max2.3. The uterus activity SUV max 2.1 and contralateral left adnexalactivity SUV max 1.5. No significant FDG avid abdominal or pelvic lymph node activity.Low-attenuation lesions in the liver without significant FDG activity.Low-attenuation lesions in the right kidney without significant FDGactivity. MUSCULOSKELETAL: No abnormal FDG activity. IMPRESSION: 1. Interval clearing of previously seen right lower lobeconsolidation/lung mass without significant residual activity noted inthis region 2. Previously described right adnexal mass does not demonstratesignificant FDG activity in comparison to background. Correlation withpelvic ultrasound is recommended. 3. Nonspecific bilateral mild FDG activity within both breasts.Correlation with mammography is recommended. Please note: The CT was acquired at a low radiation dose settings. The images are ofnondiagnostic quality and used solely for purposes of attenuationcorrection and slice localization for the PET scan. If a diagnostic CTstudy is desired it must be ordered separately. -------- FINAL REPORT -------- Dictated By: Andra Hinson Dictated Date: 01/25/2025 04:44 ET Assigned Physician: Andra Hinson Reviewed and Electronically Signed By: Andra Hinson Signed Date: 01/25/2025 05:34 ET Workstation ID: [id number] Transcribed By: Self Edit Transcribed Date: 01/25/2025 05:09 ET Fiorella Calvo EXCHANGE UNDERWRITING CONSULTANT IMG NM PROCEDURES Final Result documented in this encounter Visit Diagnoses Diagnosis Other nonspecific abnormal finding of lung field documented in this encounter Administered Medications Inactive Administered Medications - up to 3 most recent administrations Medication Order MAR Action Action Date Dose Rate Site F-18 FDG pet diag radio-isotope injection 13.1 millicurie 13.1 millicurie, intravenous, Once in imaging, Starting on Sat01/20/25 at 1600, For 1 dose Given 01/20/2025 3:50 PM EST 13.1 millicuries documented in this encounter Orders Medications Ordered That Yusuf ht Not Have Been Administered Count Last Ordered Date First Ordered Date F-18 FDG pet diag radio-isot ope injection 13.1 millicurie 1 01/20/2025 documented in this encounter
--- OUTSIDE RECORDS SUMMARY | 2025-01-25 13:14 | XMS_ITS | Encounter Summary ---
Author Organization [employer] Address [address] [facility] 7t [place] [address] Care Team Providers Care Hassock Maker Name Role Phone Fiorella Calvo Primary Care Provider [phone] Kolby Morin PharmD Unavailable [phone] Reason for Visit * Reason Onset Date Comments Med Refill 02/03/2024 Encounter Details Date Type Department Care Team (Late st Contact Info) Description 02/03/2024 Refill [facility] MED & PEDS [address] [place] [address] Fiorella Calvo ANP [address] [place] [address] Chronic left-sided low back pain with left-sided sciatica; Diabetic polyneuropathy associated with type 2 diabetes mellitus (CMS/HCC); Anxiety; Type 2 diabetes mellitus with hyperlipidemia (CMS/HCC) ([facility]/HCC) Social History Tobacco Use Types Packs/Day Years Used Date Smoking Tobacco: Every Day Cigarettes 1 31.9 Started: 1993 Smokeless Tobacco: Never Comments:Patient smoked [...] Sex Female 10:21 AM EDT Gender Identity Female 01/15/2025 11:09 AM EDT Sexual Orientation Straight 01/15/2022 10 :21 AM EDT documented as of this encounter Plan of Treatment Upcoming Encounters Date Type Department Care Team (Late st Contact Info) Description 01/28/2025 2:15 PM EST Office Visit [address] [address] Fiorella Calvo ANP [address] [place] [address] 02/01/2025 9:30 AM EST Office Visit [address] [phone] Lorna Ragsdale FNP [address] [place] [address] documented as of this encounter Goals Goal [...] documented as of this encounter Care Teams Hassock Maker Relationship Specialty Start Date End Date Fiorella Calvo ANP [address] [place] [address] PCP - General Family Medicine 11/04/20 Kolby Morin, Love [address] [place] [phone] Pharmacist Internal Medicine 08/19/23 documented as of this encounter
--- OUTSIDE RECORDS SUMMARY | 2025-01-25 13:15 | XMS_ITS | Encounter Summary ---
Author Organization [employer] Address [address] [facility] 7t [place] [address] Care Team Providers Care Building And Grounds Supervisor Name Role Phone Fiorella Calvo Primary Care Provider [phone] Kolby Morin PharmD Unavailable [phone] Reason for Visit * Reason Onset Date Comments Medication Question 12/17/2024 Durable Medical Equipment 12/17/2024 Encounter Details Date Type Department Care Team (Late st Contact Info) Description 12/17/2024 Telephone [facility] MEDICINE [address] [place], [place] [phone] Fiorella Calvo ANP [address] [place] [address] Medication Question; Durable Medical Equipment Social History Tobacco Use Types Packs/Day Years [...] with others, in a hotel, in a [facility], living outside on the street, on a [...] encounter Miscellaneous Notes * Telephone Encounter - Mary Grant - 12/21/2024 4:31 PM EDT Please see below request for nebulizer. Qualifying diagnosis not found in chart. Please advise. If agree, please provide diagnosis and notes to support the need. Thank you * Telephone Encounter - Som Sims - 12/17/2024 3:50 PM EDT Tc from pt requesting a script for a nebulizer Contact pt at [phone] (south african) documented in this encounter Plan of Treatment Upcoming Encounters Date Type Department Care Team (Late st Contact Info) Description 01/28/2025 2:15 PM EST Office Visit [address] [address] Fiorella Calvo ANP [address] [place], [place] [phone] 02/01/2025 9:30 AM EST Office Visit [address] [phone] Lorna Ragsdale FNP [address] [place], [place] [phone] documented as of this encounter Goals Goal [...] as of this encounter Care Teams Building And Grounds Supervisor Relationship Specialty Start Date End Date Fiorella Calvo ANP [address] [place] [address] [phone] PCP - General Family Medicine 11/04/20 Kolby Morin, PharmD [address] [place] [address] [phone] Pharmacist Internal Medicine 08/19/23 documented as of this encounter
--- OUTSIDE RECORDS SUMMARY | 2025-01-25 13:15 | XMS_ITS | Clinical Summary ---
Author Organization [facility] Address [address] [place] [address] Phone Care Team Providers Care Tobacco Classer Name Role Phone Unavailable Primary Care Provider Unavailabl e Encounters Date Type Department Care Team Description 01/20/2025 2:57 PM EST Hospital Encounter [facility] PET Scan [address] [place] [address] Other nonspecific abnormal finding of lung field from Last 3 Months Social History Tobacco Use Types Packs/Day Years Used Date Smoking Tobacco: Never Assessed Comments Unknown Sex and Gender Information Value Date Recorded Sex Assigned at Not on file Legal Sex Female 8:08 PM EST Gender Identity Not on file Sexual Orientation Not on file Obstetrics History Plan of Treatment Health Maintenance Due Date Last Done Comments Breast Cancer Screening 1978 Colorectal Cancer Screening: Colonoscopy 1978 Diabetes: Annual GFR (Glomerular Filtration Rate) 1978 Diabetes: Annual Foot Exam 1988 Diabetes: Annual Retina Eye Exam 1988 DTaP,Tdap,and Td Vaccines (1 - Tdap) 1997 Hepatitis B Vaccines (1 of 3 - 19+ 3-dose series) 1997 Cervical Cancer Screening: P ap Smear 06/04/1999 Pneumococcal Vaccine: Pediatrics (0 to 5 Years) and At-Risk Patients (6 to 49 Years) (2 of 2 - PCV) 11/29/2018 11/29/2017 Social Influencers of Health Screening 04/11/2023 Depression Screening 03/18/2024 Influenza Vaccine (#1) 2024 , 11/29/2017 Diabetes: Annual Urine Albumin-Creatinine Ratio (uACR) 01/20/2025 Hypertension/CHF/CAD Annual BMP Blood Test 01/20/2025 Diabetes: Blood Sugar Contro l Test (HGBA1C) 07/13/2025 01/12/2025 Cholesterol Screening (Lipid Panel) 06/11/2029 06/11/2024 RSV Immunization Adult Patients (1 - 1-dose 75+ series) 2053 HIV Screening Completed 05/16/2023 Hepatitis C Screening Completed 05/16/2023 COVID-19 Vaccine Completed 12/11/2023 HIB Vaccines Aged [...] to complete this topic RSV Immunization Patients Under 20 months Aged Out No longer eligible b ased on patient's age to complete this topic Varicella Vaccines Aged Out No longer eligible based on patient's age to complete this topic Procedures Procedure Name Priority Date/Time Associated Diagnosis Comments PET CT SKULL TO MID THIGH INITIAL Routine 01/20/2025 5:01 PM EST Other nonspecific abnormal finding of lung field from Last 3 Months Results * PET CT Skull to Mid [...] Signed Date: 01/25/2025 05:34 ET Workstation ID: [id number] Transcribed By: Self Edit Transcribed Date: 01/25/2025 [...] abdomen and pelvis dated December 2024 from [facility]. FINDINGS: HEAD AND NECK: Nonspecific focal central [...] chest abdomen andpelvis dated December 2024 from [facility]. FINDINGS: HEAD AND NECK: Nonspecific focal central [...] Signed Date: 01/25/2025 05:34 ET Workstation ID: [id number] Transcribed By: Self Edit Transcribed Date: 01/25/2025 05:09 ET Fiorella Calvo ASSISTANT ENGINEER IMG NM PROCEDURES Final Result from Last 3 Months Insurance MEDICAID - [place]
--- OUTSIDE RECORDS SUMMARY | 2025-01-25 13:15 | XMS_ITS | Encounter Summary ---
Author Organization [email or web address] Address [address] [facility] 7 [place] [address] Care Team Providers Care Bank Compliance Officer Name Role Phone Fiorella Calvo Primary Care Provider Kolby Morin PharmD Unavailable [phone] Reason for Visit * Reason Comments Med Refill Encounter Details Date Type Department Care Team ([facility] st Contact Info) Description 03/27/2024 Refill [facility] [address] [place], [place] [phone] Fiorella Calvo ANP [address] [place] [address] Type 2 diabetes mellitus with hyperlipidemia (CMS/HCC) ([facility]/HCC); Diabetic polyneuropathy associated with type 2 diabetes mellitus ([facility]/HCC) Social History Tobacco Use Types Packs/Day Years [...] Description 01/28/2025 2:15 PM EST Office Visit [facility] [address] [place] [address] Fiorella Calvo ANP [address] [place] [address] 02/01/2025 9:30 AM EST Office Visit [facility] [address] [place] [address] Lorna Ragsdale FNP [address] [place] [address] documented as of this encounter Goals Goal [...] documented as of this encounter Care Teams Bank Compliance Officer Relationship Specialty Start Date End Date Fiorella Calvo ANP [address] [place] [address] PCP - General Family Medicine 11/04/20 Kolby Morin, Love [address] [place] [address] Pharmacist Internal Medicine 08/19/23 documented as of this encounter
--- OUTSIDE RECORDS SUMMARY | 2025-01-25 13:15 | XMS_ITS | Encounter Summary ---
Author Organization [employer] Address [address] [facility] 7t [place] [address] Care Team Providers Care President Celebrity Acquistion Name Role Phone Fiorella Calvo Primary Care Provider Kolby Morin PharmD Unavailable [phone] Encounter Details Date Type Department Care Team ([facility] st Contact Info) Description 01/11/2025 Results Follow-Up [facility] [address] [place], [place] [phone] Fiorella Calvo ANP [address] [place] [address] CT Abdomen Pelvis w/ Contrast Social History Tobacco Use Types Packs/Day Years Used Date Smoking Tobacco: Every Day Cigarettes 1 31.9 Started: 1993 Smokeless Tobacco: Never Comments:Patient smoked 1-2 ppd x 30 years, reduced to 1-2 cigarettes day 08/2023 Alcohol Use Standard Drinks/Week Comments Not Currently 0 (1 standard drink = 0.6 oz pur e alcohol) Depression Answer Date Recorded Patient Health Questionnaire-9 Score 21 01/12/2025 Patient Health Questionnaire-9 Score 21 01/12/2025 Last PHQ-9: Questionnaire Data Not on file 1 Housing Stability Answer Date Recorded What is [...] the past 12 months, has t he [employer], gas, oil or water company threatened to shut off services in your home? No 02/28/2024 Depression Answer Date Recorded Patient Health Questionnaire-2 Score 4 01/12/2025 Internet Access Answer Date Recorded Internet Access [...] Answer Date of Assessment Author Patient Health Questionnaire -2 Score 4 01/12/2025 1:51 PM EDT Rodrigue Acevedo [place] * Little interest or pleasure in doing things Answer Date of Assessment Author Several days 01/12/2025 1:51 PM EDT Gama Acevedo [place] * Feeling down, depressed, or hopeless Answer Date of Assessment Author Nearly every day 01/12/2025 1:51 PM EDT Rodrigue Acevedo [place] * Trouble falling or staying asleep, or sleeping too much Answer Date of Assessment Author Several days 01/12/2025 1:51 PM EDT Gama Acevedo [place] * Feeling tired or having little energy Answer Date of Assessment Author Nearly every day 01/12/2025 1:51 PM EDT Rodrigue Acevedo [place] * Poor appetite or overeating Answer Date of Assessment Author Nearly every day 01/12/2025 1:51 PM EDT Rodrigue Acevedo [place] * Feeling bad about yourself - or that you are a failure or have let yourself or your family down Answer Date of Assessment Author Nearly every day 01/12/2025 1:51 PM EDT Rodrigue Acevedo [place] * Trouble concentrating on things, such as reading the newspaper or watching television Answer Date of Assessment Author Nearly every day 01/12/2025 1:51 PM EDT Rodrigue Acevedo [place] * Moving or speaking so slowly that other people could have noticed? Or the opposite - being so fidgety or restless that you have been moving around a lot more than usual. Answer Date of Assessment Author Several days 01/12/2025 1:51 PM EDT Gama Acevedo MA * Thoughts that you would be better off or hurting yourself in some way Answer Date of Assessment Author Nearly every day 01/12/2025 1:51 PM EDT Rodrigue Acevedo MA * Patient Health Questionnaire-9 Score Answer Date of Assessment Author 01/12/2025 1:51 PM EDT Gama Acevedo [place] * How difficult have these problems made it for you to do your work, take care of things at home, or get along with other people? Answer Date of Assessment Author Extremely difficult 01/12/2025 1:51 PM EDT Rodrigue Monroe [place] documented as of this encounter Miscellaneous Notes * Result Encounter Note - RIANA Wahl - 01/11/2025 5:43 PM EDT Will discuss w/ pt at visit documented in this encounter Plan of Treatment Upcoming Encounters Date Type Department Care Team (Late st Contact Info) Description 01/28/2025 2:15 PM EST Office Visit [address] [address] Fiorella Calvo ANP [address] [place] [address] 02/01/2025 9:30 AM EST Office Visit [address] [address] Lorna Ragsdale FNP [address] [place] [address] documented as of this encounter Goals Goal Patient Goal Type Associated Problems Recent Progress Patient-Stated? Author Quit using tobacco (cigarettes, smokeless, etc) Tobacco Use No Kolby Morin, KariD documented as of this encounter Visit Diagnoses Not on filedocumented in this encounter Additional Health Concerns Assessment Noted Time PHQ-9 Depression Total Score: 26 025 11:43 AM EST documented as of this encounter Care Teams President Celebrity Acquistion Relationship Specialty Start Date End Date Fiorella Calvo ANP [address] [place] [address] PCP - General Family Medicine 11/04/20 Kolby Morin, PharmD [address] [place] [address] Pharmacist Internal Medicine 08/19/23 documented as of this encounter
--- OUTSIDE RECORDS SUMMARY | 2025-01-25 13:15 | XMS_ITS | Encounter Summary ---
Author Organization [employer] Address [address] [place] [address] 7 [place] [address] Care Team Providers Care Sdv Pilot/Navigator/Dds Operator Name Role Phone Fiorella Calvo Primary Care Provider [phone] Kolby Morin PharmD Unavailable [phone] Reason for Visit * Reason Onset Date Comments Med Refill 05/25/2024 Encounter Details Date Type Department Care Team (Late st Contact Info) Description 05/25/2024 Refill [facility] [address] [place], [place] [phone] Jyoti Melendez NP [address] [place] [address] Type 2 diabetes mellitus with hyperlipidemia (CMS/HCC) ([facility]/HCC); Diabetic polyneuropathy associated with type 2 diabetes mellitus (CMS/HCC) Social History Tobacco Use Types Packs/Day Years Used Date Smoking Tobacco: Former Cigarettes 1 31.9 S tarted: 1993 Smokeless Tobacco: Never Comments:Patient [...] with others, in a hotel, in a usp, living outside on the street, on a [...] Description 01/28/2025 2:15 PM EST Office Visit [facility] [address] [place] [address] Fiorella Calvo ANP [address] [place] [address] 02/01/2025 9:30 AM EST Office Visit [facility] [address] [place] [address] [phone] Lorna Ragsdale FNP [address] [place] [address] documented as of this encounter Goals Goal [...] documented as of this encounter Care Teams Sdv Pilot/Navigator/Dds Operator Relationship Specialty Start Date End Date Fiorella Calvo ANP [address] [place] [address] PCP - General Family Medicine 11/04/20 Kolby Morin PharmD [address] [place] [address] Pharmacist Internal Medicine 08/19/23 documented as of this encounter
--- OUTSIDE RECORDS SUMMARY | 2025-01-25 13:15 | XMS_ITS | Encounter Summary ---
Author Organization [employer] [facility] Address [address] [facility] 7t [place] [address] Care Team Providers Care Transportation Equipment Painter Name Role Phone Fiorella Calvo Primary Care Provider [phone] Kolby Morin PharmD Unavailable [phone] Reason for Visit * Reason Onset Date Comments Med Refill 10/20/2023 Encounter Details Date Type Department Care Team (Late st Contact Info) Description 10/20/2023 Refill [facility] [address] [place], [place] [phone] Fiorella Calvo ANP [address] [place] [address] Type 2 diabetes mellitus with hyperlipidemia (CMS/HCC) [...] Description 01/28/2025 2:15 PM EST Office Visit [address] [address] Fiorella Calvo ANP [address] [place] [address] 02/01/2025 9:30 AM EST Office Visit [address] [phone] Lorna Ragsdale FNP [address] [place] [address] documented as of this encounter Goals Goal [...] documented as of this encounter Care Teams Transportation Equipment Painter Relationship Specialty Start Date End Date Fiorella Calvo ANP [address] [place] [address] PCP - General Family Medicine 11/04/20 Kolby Morin, PharmD [address] [place] [address] Pharmacist Internal Medicine 08/19/23 documented as of this encounter
--- OUTSIDE RECORDS SUMMARY | 2025-01-25 13:15 | XMS_ITS | Encounter Summary ---
Author Organization [employer] Address [address] [facility] 7t [place] [address] Care Team Providers Care Agriculture Instructor Name Role Phone Fiorella Calvo Primary Care Provider [phone] Kolby Morin PharmD Unavailable [phone] Reason for Visit * Reason Onset Date Comments Med Refill 12/22/2024 Encounter Details Date Type Department Care Team (Late st Contact Info) Description 12/22/2024 Refill [facility] 230 [place], [place] [phone] Fiorella Calvo ANP [address] [place] [address] Type 2 diabetes mellitus with hyperlipidemia (HCC); Diabetic polyneuropathy associated with type 2 diabetes mellitus (HCC) Social History Tobacco Use Types Packs/Day Years [...] Description 01/28/2025 2:15 PM EST Office Visit [address] [address] Fiorella Calvo ANP [address] [place] [address] 02/01/2025 9:30 AM EST Office Visit [facility] [address] [place] [address] Lorna Ragsdale FNP [address] [place] [address] documented as of this encounter Goals Goal [...] documented as of this encounter Care Teams Agriculture Instructor Relationship Specialty Start Date End Date Fiorella Calvo ANP [address] [place] [address] PCP - General Family Medicine 11/04/20 Kolby Morin, Love [address] [place] [address] Pharmacist Internal Medicine 08/19/23 documented as of this encounter
--- OUTSIDE RECORDS SUMMARY | 2025-01-25 13:15 | XMS_ITS | Encounter Summary ---
Author Organization [employer] Address [address] [facility] 7 [place] [address] Care Team Providers Care Incident Response Engineer Name Role Phone Fiorella Calvo Primary Care Provider [phone] Kolby Morin PharmD Unavailable [phone] Reason for Visit * Reason Onset Date Comments Pt-1 08/12/2024 Encounter Details Date Type Department Care Team (Late st Contact Info) Description 08/12/2024 Telephone [facility] [address] [place], [place] [phone] Fiorella Calvo ANP 230 [place], [place] [phone] Pt-1 Social History Tobacco Use Types Packs/Day [...] Y/N: Yes Provider name or facility name: [facility] Facility Address: [address] [place] [address] Escort needed: Y/N: No Do you have a wheelchair: Y/N: No If yes- Manual or electric: N/A Visits: twice a month documented in this encounter Plan of Treatment Upcoming Encounters Date Type Department Care Team (Late st Contact Info) Description 01/28/2025 2:15 PM EST Office Visit [facility] [address] [place] [address] Fiorella Calvo ANP [address] [place] [address] 02/01/2025 9:30 AM EST Office Visit [facility] [address] [place] [address] Lorna Ragsdale FNP [address] [place], [place] [phone] documented as of this encounter Goals Goal Patient Goal Type Associated Problems Recent Progress Patient-Stated? Author Quit using tobacco (cigarettes, smokeless, etc) Tobacco Use No Kolby Morin, PharmD documented as of this encounter Visit Diagnoses Not on filedocumented in this encounter Additional Health Concerns Assessment Noted Time PHQ-9 Depression Total Score: 26 025 11:43 AM EST documented as of this encounter Care Teams Incident Response Engineer Relationship Specialty Start Date End Date Fiorella Calvo ANP [address] [place] [address] PCP - General Family Medicine 11/04/20 Kolby Morin, PharmD [address] [place] [address] Pharmacist Internal Medicine 08/19/23 documented as of this encounter
--- OUTSIDE RECORDS SUMMARY | 2025-01-25 13:15 | XMS_ITS | Encounter Summary ---
Author Organization [employer] Address [address] [facility] 7t [place] [address] Care Team Providers Care Steam Fitter Helper Name Role Phone Fiorella Calvo Primary Care Provider [phone] Kolby Morin PharmD Unavailable [phone] Reason for Visit * Reason Onset Date Comments Med Refill 03/23/2024 Encounter Details Date Type Department Care Team (Late st Contact Info) Description 03/23/2024 Refill [facility] [address] [place], [place] [phone] Fiorella Calvo ANP [address] [place] [address] Type 2 diabetes mellitus with hyperlipidemia (CMS/HCC) ([facility]/HCC); Diabetic polyneuropathy associated with type 2 [...] Description 01/28/2025 2:15 PM EST Office Visit [facility] [address] [place] [address] Fiorella Calvo ANP [address] [place] [address] 02/01/2025 9:30 AM EST Office Visit [facility] [address] [place] [address] Lorna Ragsdale FNP [address] [place] [address] documented as of this encounter Goals Goal [...] documented as of this encounter Care Teams Steam Fitter Helper Relationship Specialty Start Date End Date Fiorella Calvo ANP [address] [place] [address] PCP - General Family Medicine 11/04/20 Kolby Morin PharmD [address] [place] [address] Pharmacist Internal Medicine 08/19/23 documented as of this encounter
--- OUTSIDE RECORDS SUMMARY | 2025-01-25 13:15 | XMS_ITS | Encounter Summary ---
Author Organization [employer] [facility] Address [address] [place] [address] 7t [place] [address] Care Team Providers Care Personnel Assistant Name Role Phone Fiorella Clavo Primary Care Provider [phone] Kolby Morin PharmD Unavailable [phone] Reason for Visit * Reason Onset Date Comments Returning call 10/28/2023 Encounter Details Date Type Department Care Team (Late st Contact Info) Description 10/28/2023 Telephone [facility] [address] [place], [place] [phone] Fiorella Calvo ANP [address] [place] [address] Returning call Social History Tobacco Use Types [...] at this time. LVM introducing herself from [facility] CM Department. Requested call back. Please contact pt at [phone]. (Frisian Speaker) documented in this encounter Plan of Treatment Upcoming Encounters Date Type Department Care Team (Late st Contact Info) Description 01/28/2025 2:15 PM EST Office Visit [address] [address] Fiorella Calvo ANP [address] [place] [address] 02/01/2025 9:30 AM EST Office Visit [address] [address] Lorna Ragsdale FNP [address] [place] [address] documented as of this encounter Goals Goal Patient Goal Type Associated Problems Recent Progress Patient-Stated? Author Quit using tobacco (cigarettes, smokeless, etc) Tobacco Use No Kolby Morin, Love documented as of this encounter Visit Diagnoses Not on filedocumented in this encounter Additional Health Concerns Assessment Noted Time PHQ-9 Depression Total Score: 20 024 9:15 AM EDT documented as of this encounter Care Teams Personnel Assistant Relationship Specialty Start Date End Date Fiorella Calvo ANP [address] [place] [address] PCP - General Family Medicine 11/04/20 Kolby Morin, KariD [address] [place] [address] Pharmacist Internal Medicine 08/19/23 documented as of this encounter
--- OUTSIDE RECORDS SUMMARY | 2025-01-25 13:15 | XMS_ITS | Encounter Summary ---
Author Organization [employer] Address [address] [facility] 7t [place] [address] Care Team Providers Care Classics Teacher Name Role Phone Fiorella Calvo Primary Care Provider [phone] Kolby Morin PharmD Unavailable [phone] Reason for Visit * Reason Onset Date Comments Med Refill 03/23/2024 Encounter Details Date Type Department Care Team (Late st Contact Info) Description 03/23/2024 Refill [facility] [address] [place], [place] [phone] Fiorella Calvo ANP 230 [place] [address] Type 2 diabetes mellitus with hyperlipidemia (CMS/HCC) ([facility]/HCC); Diabetic polyneuropathy associated with type 2 diabetes [...] Description 01/28/2025 2:15 PM EST Office Visit [facility] [address] [place] [address] Fiorella Calvo ANP [address] [place] [address] 02/01/2025 9:30 AM EST Office Visit [facility] [address] [place] [address] Lorna Ragsdale FNP [address] [place] [address] documented as of this encounter Goals Goal [...] documented as of this encounter Care Teams Classics Teacher Relationship Specialty Start Date End Date Fiorella Calvo ANP [address] [place] [address] PCP - General Family Medicine 11/04/20 Kolby Morin PharmD [address] [place] [address] Pharmacist Internal Medicine 08/19/23 documented as of this encounter
--- OUTSIDE RECORDS SUMMARY | 2025-01-25 13:15 | XMS_ITS | Encounter Summary ---
Author Organization [employer] Address 75 [facility] 7 [place] [address] Care Team Providers Care Director Of Residence Life Name Role Phone Fiorella Calvo Primary Care Provider [phone] Kolby Morin PharmD Unavailable [phone] Reason for Visit * Reason Onset Date Comments PT1 06/30/2024 Encounter Details Date Type Department Care Team (Late st Contact Info) Description 06/30/2024 Telephone [facility] [address] [place], [place] [phone] Fiorella Calvo ANP [address] [place], [place] [phone] PT1 Social History Tobacco Use Types Packs/Day [...] with others, in a hotel, in a residential, living outside on the street, on a [...] name or facility name: [facility] - [address] [place] [address] Escort needed: Y/N: No Do you have a wheelchair: Y/N: No If yes- Manual or electric: N/A Visits: (2x monthly) documented in this encounter Plan of Treatment Upcoming Encounters Date Type Department Care Team ([facility] Contact Info) Description 01/28/2025 2:15 PM EST Office Visit [facility] [address] [place] [address] Fiorella Calvo ANP [address] [place] [address] 02/01/2025 9:30 AM EST Office Visit [facility] [address] [place] [address] Lorna Ragsdale FNP 230 [place] [address] documented as of this encounter Goals Goal Patient Goal Type Associated Problems Recent Progress Patient-Stated? Author Quit using tobacco (cigarettes, smokeless, etc) Tobacco Use No Kolby Morin, PharmD documented as of this encounter Visit Diagnoses Not on filedocumented in this encounter Additional Health Concerns Assessment Noted Time PHQ-9 Depression Total Score: 26 025 11:43 AM EST documented as of this encounter Care Teams Director Of Residence Life Relationship Specialty Start Date End Date Fiorella Calvo ANP [address] [place] [address] PCP - General Family Medicine 11/04/20 Kolby Morin, PharmD [address] [place] [address] Pharmacist Internal Medicine 08/19/23 documented as of this encounter
--- OUTSIDE RECORDS SUMMARY | 2025-01-25 13:15 | XMS_ITS | Encounter Summary ---
Author Organization [employer] Address [address] [facility] 7t [place] [address] Care Team Providers Care Carpenter Helper Hardwood Flooring Name Role Phone Fiorella Calvo Primary Care Provider [phone] Kolby Morin PharmD Unavailable [phone] Reason for Visit * Reason Onset Date Comments Med Refill 01/01/2025 Encounter Details Date Type Department Care Team (Late st Contact Info) Description 01/01/2025 Refill [facility] [address] [place], [place] [phone] Fiorella Calvo ANP [address] [place] [address] Type 2 diabetes mellitus with obesity; Type 2 diabetes mellitus with hyperlipidemia (HCC); [...] Description 01/28/2025 2:15 PM EST Office Visit [facility] [address] [place] [address] Fiorella Calvo ANP [address] [place] [address] 02/01/2025 9:30 AM EST Office Visit [facility] [address] [place] [address] Lorna Ragsdale FNP [address] [place] [address] documented as of this encounter Goals Goal Patient Goal Type Associated Problems Recent Progress Patient-Stated? Author Quit using tobacco (cigarettes, smokeless, etc) Tobacco Use No Kolby Morin, KariD documented as of this encounter Visit Diagnoses Diagnosis Type 2 diabetes mellitus with obesity Type 2 diabetes mellitus with hyperlipidemia (HCC) Diabetic polyneuropathy associated with type 2 diabetes mellitus (HCC) documented in this encounter Additional Health Concerns Assessment Noted Time PHQ-9 Depression Total Score: 26 025 11:43 AM EST documented as of this encounter Care Teams Carpenter Helper Hardwood Flooring Relationship Specialty Start Date End Date Fiorella Calvo ANP [address] [place] [address] PCP - General Family Medicine 11/04/20 Kolby Morin, Love [address] [place] [address] Pharmacist Internal Medicine 08/19/23 documented as of this encounter
--- OUTSIDE RECORDS SUMMARY | 2025-01-25 13:15 | XMS_ITS | Encounter Summary ---
Author Organization [employer] Address [address] [facility] 7[address] [place] [address] Care Team Providers Care [address] Magistrate Name Role Phone Fiorella Calvo Primary Care Provider Kolby Morin PharmD Unavailable [phone] Reason for Visit * Reason Onset Date Comments Med Refill 05/09/2024 Encounter Details Date Type Department Care Team (Late st Contact Info) Description 05/09/2024 Refill [facility] [address] [place], [place] [phone] Fiorella Calvo ANP [address] [place] [address] Type 2 diabetes mellitus with hyperlipidemia ([facility]/HCC) ([facility]) Social History Tobacco Use Types Packs/Day Years [...] with others, in a hotel, in a group home, living outside on the street, on [...] Description 01/28/2025 2:15 PM EST Office Visit [facility] [address] [place] [phone] Fiorella Calvo ANP [address] [place] [address] 02/01/2025 9:30 AM EST Office Visit [facility] [address] [place] [phone] Lorna Ragsdale FNP [address] [place], [place] [phone] documented as of this encounter Goals Goal [...] documented as of this encounter Care Teams Municipal Court Magistrate Relationship Specialty Start Date End Date Fiorella Calvo ANP [address] [place] [address] PCP - General Family Medicine 11/04/20 Kolby Morin PharmD [address] [place] [address] Pharmacist Internal Medicine 08/19/23 documented as of this encounter
--- OUTSIDE RECORDS SUMMARY | 2025-01-25 13:15 | XMS_ITS | Encounter Summary ---
Author Organization [employer] Address [address] [facility] 7t [place] [address] Care Team Providers Care Crane Manager Name Role Phone Fiorella Calvo Primary Care Provider Kolby Morin PharmD Unavailable [phone] Reason for Visit * Reason Onset Date Comments Med Refill 12/18/2024 Encounter Details Date Type Department Care Team (Late st Contact Info) Description 12/18/2024 Refill [facility] [address] [place], [place] [phone] Fiorella Calvo ANP [address] [place] [address] Type 2 diabetes mellitus with hyperlipidemia (HCC); Diabetic polyneuropathy associated with type 2 diabetes mellitus (HCC); Type 2 diabetes mellitus with obesity; Chronic pain of left knee; Osteoarthritis of left knee, unspecified osteoarthritis type; Complex tear of meniscus of left knee as current injury, unspecified meniscus, subsequent encounter Social History Tobacco Use Types Packs/Day Years Used Date Smoking Tobacco: Every Day Cigarettes Started: 1993 Smokeless Tobacco: Never Comments:Patient smoked [...] Description 01/28/2025 2:15 PM EST Office Visit [address] [address] Fiorella Calvo ANP [address] [place] [address] 02/01/2025 9:30 AM EST Office Visit [address] [address] Lorna Ragsdale FNP [address] [place] [phone] documented as of this encounter Goals Goal Patient Goal Type Associated Problems Recent Progress Patient-Stated? Author Quit using tobacco (cigarettes, smokeless, etc) Tobacco Use No Kolby Morin PharmD documented as of this encounter Visit Diagnoses Diagnosis Type 2 diabetes mellitus with hyperlipidemia (HCC) Diabetic polyneuropathy associated with type 2 diabetes mellitus (HCC) Type 2 diabetes mellitus with obesity Chronic pain of left knee Osteoarthritis of left knee, unspecified osteoarthritis type Complex tear of meniscus of left knee as current injury, unspecified meniscus, subsequent encounter documented in this encounter Additional Health Concerns Assessment Noted Time PHQ-9 Depression Total Score: 26 025 11:43 AM EST documented as of this encounter Care Teams Crane Manager Relationship Specialty Start Date End Date Fiorella Calvo ANP [address] [place] [address] PCP - General Family Medicine 11/04/20 Kolby Morin, Love [address] [place] [address] Pharmacist Internal Medicine 08/19/23 documented as of this encounter
--- OUTSIDE RECORDS SUMMARY | 2025-01-25 13:15 | XMS_ITS | Encounter Summary ---
Author Organization [employer] Address [address] [facility] 7[address] [place] [address] Care Team Providers Care Revenue Cycle Manager Name Role Phone Fiorella Calvo Primary Care Provider [phone] Kolby Morin PharmD Unavailable [phone] Reason for Visit * Reason Onset Date Comments Med Refill 12/15/2023 Encounter Details Date Type Department Care Team (Late st Contact Info) Description 12/15/2023 Refill [facility] [address] [place] [address] Fiorella Calvo ANP [address] [place] [address] Chronic left-sided low back pain with left-sided [...] Description 01/28/2025 2:15 PM EST Office Visit [address] [address] Fiorella Calvo ANP [address] [place], [place] [phone] 02/01/2025 9:30 AM EST Office Visit [address] [phone] Lorna Ragsdale FNP [address] [place], [place] [phone] documented as of this encounter Goals Goal [...] documented as of this encounter Care Teams Revenue Cycle Manager Relationship Specialty Start Date End Date Fiorella Calvo ANP [address] [place] [phone] PCP - General Family Medicine 11/04/20 Kolby Morin, PharmD [address] [place] [phone] Pharmacist Internal Medicine 08/19/23 documented as of this encounter
--- OUTSIDE RECORDS SUMMARY | 2025-01-25 13:15 | XMS_ITS | Clinical Summary ---
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 osteoarthritis type; Complex tear of meniscus of left knee as current injury, unspecified meniscus, subsequent encounter from Last 3 Months Immunizations Immunization Administration Dates Next Due Influenza injectable quadriv alent IIV4 with preservative 11/29/2017 Influenza, seasonal, injectable, preservative fr ee 12/11/2023 Pfizer Covid-19 Vaccine 12+ 12/11/2023 Pneumococcal Polysaccharide PPSV23 11/29/2017 Social History Tobacco Use Types Packs/Day Years Used Date Smoking Tobacco: Every Day Cigarettes 1 31.9 Started: 1993 Smokeless Tobacco: Never Tobacco Cessation:Ready [...] Sign Reading Time Taken Comments Blood Pressure 160/90 01/12/2025 1:33 PM EDT Pulse 98 01/12/2025 1:33 PM EDT Temperature 36.7 C (98 F) 01/12/2025 1:33 PM EDT Respiratory Rate 15 01/12/2025 1:33 PM EDT Oxygen Saturation 99% 01/12/2025 1:33 PM EDT Inhaled Oxygen Concentration - - Weight 83.9 kg (185 lb) 01/12/2025 1:33 PM EDT Height 162.6 cm (5' 4 ) 01/12/2025 1:33 PM EDT Body Mass Index 31.76 01/12/2025 1:33 PM EDT Plan of Treatment Upcoming Encounters Date Type Department Care Team (Late st Contact Info) Description 01/28/2025 2:15 PM EST Office Visit [facility] [address] [place] [address] Lolis Adam ANP [address] [place] [address] 02/01/2025 9:30 AM EST Office Visit [facility] [address] [place] [address] Lorna Ragsdale FNP [address] [place] [address] Health Maintenance Due Date Last Done Comments CT Colonography 1978 Colonoscopy 1978 Colorectal Cancer Screening 1978 FIT DNA/Cologuard 1978 FIT 1978 FOBT 1978 Sigmoidoscopy 1978 Diabetes: Foot Exam 1988 Family Planning (PISQ) 1993 DTaP/Tdap/Td Vaccines (1 - Tdap) 1997 Hepatitis B Vaccines (1 of 3 - 19+ 3-dose series) 1997 Pap Smear 06/04/1999 Cervical Cancer Screening 2008 HPV/Cotest 2008 Pneumococcal Vaccine: Pediatrics (0 to 5 Years) and At-Risk Patients (6 to 49) Years (2 of 2 - PCV) 11/29/2018 11/29/2017 Diagnostic Breast Imaging 06/23/2024 12/24/2023, 10/2023 Mammogram 06/23/2024 12/24/2023, 12/24/2023 Influenza Vaccine (#1) 2024 12/11/2023, 2017 SDOH Screening 02/27/2025 02/28/2024 Diabetes: Hemoglobin A1C 04/14/2025 025, 06/11/2024, 03/16/2024, Additional history exists Alcohol/Substance Use Screening 04/17/2025 04/17/2024 Lipid Panel 06/11/2025 06/11/2024, 04/19, 07/19/2020 Depression Monitoring 07/13/2025 01/12/2025, 025 Disability Screening 08/05/2025 08/05/2024 Tobacco Screening 01/25/2026 01/25/2025 Eye Exam 01/01/2027 01/01/2025, 12/16, 01/01/2025, Additional history exists Zoster Vaccines (1 of 2) 2028 RSV [...] etc) Tobacco Use No Kolby Morin, PharmD Procedures Procedure Name Priority Date/Time Associated Diagnosis Comments PET/CT BONE SKULL BASE TO MID THIGH Urgent 01/20/2025 Right lower lobe lung mass POCT URINALYSIS DIPSTICK Routine 01/12/2025 3:08 PM EDT Type 2 diabetes mellitus with hyperlipidemia (HCC) POCT GLUCOSE Routine 01/12/2025 2:52 PM EDT Type 2 diabetes mellitus with hyperlipidemia (HCC) BACTERIAL VAGINOSIS PANEL Routine 01/12/2025 2:41 PM EDT Vaginal itching POCT GLUCOSE Routine 01/12/2025 2:09 PM EDT Type 2 diabetes mellitus with hyperlipidemia (HCC) POCT GLYCATED HEMOGLOBIN, TOTAL Routine 01/12/2025 1:52 PM EDT Type 2 diabetes mellitus with hyperlipidemia (HCC) POCT GLUCOSE Routine 01/12/2025 1:51 PM EDT Type 2 diabetes mellitus with hyperlipidemia (HCC) AUTOMATED VISUAL FIELD, EXTENDED - OU - BOTH EYES Routine 01/01/2025 11:00 AM EDT Right homonymous hemianopsia OCT, OPTIC NERVE - OU - BOTH EYES Routine 12/29/2024 2:30 PM EDT Optic disc pallor, bilateral CT ABDOMEN PELVIS W CONTRAST Routine 12/16/2024 6:13 PM EDT CTA CHEST PE PROTOCAL Routine 12/16/2024 6:09 PM EDT US ABDOMEN LIMITED Routine 12/16/2024 3 :52 PM EDT XR CHEST 2 VIEWS Routine 12/16/2024 12:4 0 PM EDT HOLD LAVENDER - POSSIBLE HEMATOLOGY Routine 12/16/2024 12:13 PM EDT LIPID PANEL, STANDARD Routine 06/11/2024 10:40 AM [...] Recently Relevant to Health Maintenance Results * PET/CT Bone Skull Base to Mid Thigh (01/20/2025) Anatomical Region Laterality Modality Body Computed Tomogra phy us Lolis Adam ANP IMG CT PROCEDURES Final Result * (ABNORMAL) POCT Urinalysis (01/12/2025 3:08 PM EDT) Color, UA Yellow Clarity, UA Clear Glucose, UA 4+ >500 Bilirubin, UA Negative Ketones, UA Negative Spec Grav, UA 1.010 Blood, UA Positive(A) Negative, None Detected Comment:Trace-lysed pH, UA 5.5 Protein, UA Negative Urobilinogen, UA 0.2 Leukocytes, UA Negative Negative, Rare, Trace Nitrite, UA Negative Negative, None Detected QC Media Lot # [id number] Lot# Expiration Date [id number] Urine (Urine, Random) 01/12/2025 3:08 PM EDT us Lolis MAYERS POINT OF CARE TEST ENTER/EDIT OR DERABLES Final Result * (ABNORMAL) POCT Glucose (01/12/2025 2:52 PM EDT) Only the most recent of3 resultswithin the time period is included. Glucose Blood, POC 500(A) 60 - 200 mg/dL Comment:[facility] QC Media Lot # [id number] Lot# Expiration Date [id number] Blood Capillary blood specimen / Unknown 01/12/2025 2:52 PM EDT us Lolis Adam [facility] POINT OF CARE TEST ENTER/EDIT OR DERABLES Final Result * (ABNORMAL) Bacterial Vaginosis Panel (01/12/2025 2:41 PM EDT) TRICHOMONAS VAGINALIS DETECTION BY PCR NOT DETECTED Not Detect [facility] BACTERIAL VAGINOSIS DETECTION BY PCR NEGATIVE Negative [facility] Comment:The BV organism targ ets of the Xpert Xpress MVP test can becommensal in women; Xpert Xpress MVP positive results forbacterial vaginosis should be considered in conjunction withother clinical and patient information to determine thedisease status. Organisms that are not detected by the XpertXpress MVP test have also been reported to be associatedwith BV and aerobic vaginitis.The Xpert Xpress MVP test performance has not been evaluatedin patients under the age of 14. CHICHI GROUP DETECTION BY PCR DETECTED(A) Not Detect [facility] Chichi glab krusei PCR NOT DETECTED Not Detect [facility] Swab Vaginal structure / Unknown 01/12/2025 2:41 PM EDT 01/12/2025 6:56 PM EDT us Lolis Adam [facility] MICROBIOLOGY - GENERAL ORDER BAUTISTA Final Result [facility] [address] [place] [phone] * (ABNORMAL) POCT Hgb A1c (01/12/2025 1:52 PM EDT) Hemoglobin A1C 14.8(A) 4.0 - 5.7 % QC Media Lot # [id number] Lot# Expiration Date [id number] Blood 01/12/2025 1:52 PM EDT us Lolis MAYERS POINT OF CARE TEST ENTER/EDIT OR DERABLES Final Result * Automated Visual Field, Extended - OU - Both Eyes (01/01/2025 11:00 AM EDT) Evelia Phan, OD - 01/01/2025 11:00 AM EDT VISUAL FIELD INTERPRETATION Reason for testing: Hemianopic ganglion cell layer (GCL) loss Reliability: OD: Excellent reliability 0% FN/FP OS: Excellent reliability 0% FN/FP Statistical Indices: OD: MD: 0.9 dB, PSD: 2.3 dB OS: MD: 0.9 dB, PSD: 2.7 dB Impression: OD: Shallow midperipheral temporal defects respecting vertical midline. Baseline. OS: Nasal defects respecting verical midline. Baseline. Management Plan: Right homonymous hemianopsia. Suspect history of left sided occipital lobe stroke. Refer for neuroimaging and neurology consult. Eevlia Godwin OD OPHTH VISUAL FIELD Final Result * OCT, Optic Nerve - OU - Both Eyes (12/29/2024 2:30 PM EDT) Evelia Phan, OD - 12/30/2024 12:58 PM EDT Images from the original result were not included. OCT GLAUCOMA INTERPRETATION Reliability : OD: SS 52 - good quality scan OS: SS 51 - good quality scan Measurements RNFL: Avg RNFL thickness OD: 69 microns OS: 77 microns Test findings RNFL: RNFL OD: Thin superior and temporal quadrants. Baseline. RNFL OS: Thin superior, temporal and inferior quadrants. Baseline. Test findings GCL: GCL OD: Thin nasally from 11-4 o'clock. Baseline. GCL OS: Thin temporally from 11-4 o'clock. Baseline. 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 Baseline. Rule out nutritional/toxic neuropathy workup. RTC for visual field (VF) in 1 day Evelia Godwin OD OPHTH TOMOGRAPHY Edited Result - Final * CT Abdomen Pelvis w/ Contrast (12/16/2024 6:13 PM EDT) Anatomical Region Laterality Modality Body, Pelvis, Abdomen Computed T omography 12/16/2024 6:13 PM EDT Narrative 12/16/2024 6:15 PM EDT [address] [place] [address] CT Scan Report Signed with Rickey Patient: Teena Garza MR#: [id number] : 1980 Acct:[id number] Age/Sex: 44 / F ADM Date: 12/16/24 Loc: HO.ED Attending Dr: Ordering Physician: Aaron Calderón MD Date of Service: 12/16/24 Procedure(s): CT abdomen pelvis w IV con Accession Number(s): [id number] cc: Aaron Calderón MD; LOLIS ADAM NP Report Number: [id number]: Total DLP = 0.00 mGy-cm Reason for Exam: right sided pain, WBC 14,000 ADDENDUM This document has been electronically signed by: Zaid Ford MD on 12/16/2024 18:13:55 ADDENDUM: Receipt of this report by the clinical staff was confirmed with Ariana Jones RN on Dec 16, 2024 18:28:00 EDT. This document has been electronically signed by: Jacqueline Manzanares on 12/16/2024 18:28:17 Addendum Dictated By: Zaid Ford MD Addendum Signed By: <Electronically signed by Zaid Ford MD in OV> 12/16/241827 Addendum Cosigned By: DD/ /11/1812 TD/TT: 12/16/2404/11/1827 CLINICAL HISTORY: right sided pain, WBC 14,000 CT abdomen and pelvis with contrast Comparison: None provided Findings: There is right lower lobe consolidation, possible pneumonia or subsegmental atelectasis. There is a focal right lower lobe 3.7 x 2.7 cm mass. Unremarkable gallbladder and solid organs. No urolithiasis. No bowel obstruction, pneumoperitoneum, or pneumatosis. There is a heterogeneous right adnexal 4.3 x 3.3 cm mass, incompletely evaluated on the current study. Appropriate further evaluation possibly beginning with pelvic ultrasound, recommended. Pelvic contents otherwise unremarkable. Normal appendix. The bones are intact. IMPRESSION: 1. Right lower lobe consolidation and mass, possible pneumonia, atelectasis, or neoplasm. Short-term follow-up with possible PET-CT, recommended. 2. Right adnexal mass, possible related to ovary. Appropriate follow-up possibly beginning with pelvic ultrasound, recommended. This document has been electronically signed by: Zaid Ford MD on 12/16/2024 18:13:55 Dictated By: Zaid Ford MD Signed By: <Electronically signed by Zaid Ford MD in OV> 12/16/241814 DD/ 12 TD/TT: 12/16/241812 [employer] Re[employer] Specialist: Procedure Note Donotuseinterpreter, Image - 12/16/[address] [address] [address] Scan Report Signed with Addenda Patient: Teena Garza [facility]#: [id number] : 1980Acct:[id number] Age/Sex: 44 / FADM Date: 12/16/24 Loc: .ED Attending Dr: Ordering Physician: Aaron Calderón MD Date of Service: 12/16/24 Procedure(s): CT abdomen pelvis w IV con Accession Number(s): [id number] cc: Aaron Calderón MD; LOLIS ADAM NP Report Number: [id number]: Total DLP = 0.00 mGy-cm Reason for Exam: right sided pain, WBC 14,000 ADDENDUM This document has been electronically signed by: Zaid Ford MD on 12/16/2024 18:13:55 ADDENDUM: Receipt of this report by the clinical staff was confirmed with Ariana Jones RN on Dec 16, 2024 18:28:00 EDT. This document has been electronically signed by: Jacqueline Manzanares on 12/16/2024 18:28:17 Addendum Dictated By: Zaid Ford MD Addendum Signed By: <Electronically signed by Zaid Ford MD in OV> 12/16/241827 Addendum Cosigned By: DD/ /11/1812 TD/TT: 12/16/2404/11/1827 CLINICAL HISTORY: right sided pain, WBC 14,000 CT abdomen and pelvis with contrast Comparison: None provided Findings: There is right lower lobe consolidation, possible pneumonia or subsegmental atelectasis. There is a focal right lower lobe 3.7 x 2.7 cm mass. Unremarkable gallbladder and solid organs. No urolithiasis. No bowel obstruction, pneumoperitoneum, or pneumatosis. There is a heterogeneous right adnexal 4.3 x 3.3 cm mass, incompletely evaluated on the current study. Appropriate further evaluation possibly beginning with pelvic ultrasound, recommended. Pelvic contents otherwise unremarkable. Normal appendix. The bones are intact. IMPRESSION: 1. Right lower lobe consolidation and mass, possible pneumonia, atelectasis, or neoplasm. Short-term follow-up with possible PET-CT, recommended. 2. Right adnexal mass, possible related to ovary. Appropriate follow-up possibly beginning with pelvic ultrasound, recommended. This document has been electronically signed by: Zaid Ford MD on 12/16/2024 18:13:55 Dictated By: Zaid Ford MD Signed By: <Electronically signed by Zaid Ford MD in OV> 12/16/241814 DD/ 12 TD/TT: 12/16/241812 Camp Recreation Specialist: [facility] External Provider IMG CT PROCEDURES Edited Result - Final * CTA Chest PE Protocal (12/16/2024 6:09 PM EDT) Anatomical Region Laterality Modality Body, Chest Computed Tomogra phy 12/16/2024 6:09 PM EDT Narrative 12/16/2024 6:11 PM EDT [place] [address] CT Scan Report Signed Patient: Teena Garza MR#: [id number] : 1980 Acct:[id number] Age/Sex: 44 / F ADM Date: 12/16/24 Loc: HO.ED Attending Dr: Ordering Physician: Aaron Calderón MD Date of Service: 12/16/24 Procedure(s): CT angio chest PE protocol Accession Number(s): [id number] cc: Aaron Calderón MD; LOLIS ADAM NP Report Number: [id number]: Total DLP = 0.00 mGy-cm Reason for Exam: right sided pain, tachycardia CLINICAL HISTORY: right sided pain, tachycardia CT angiography chest with contrast. 3D Postprocessing. Comparison: None provided Findings: The heart size is normal. RV/LV ratio is normal. Unremarkable thoracic aorta and great vessels. No aneurysm. No acute pulmonary embolus. The visualized thyroid and mediastinum are unremarkable. There is right lower lobe consolidation, possible pneumonia or subsegmental atelectasis. The upper abdomen is unremarkable. The bones are intact. IMPRESSION: 1. No pulmonary emboli. 2. Right lower lobe consolidation, differential considerations noted This document has been electronically signed by: Zaid Ford MD on 12/16/2024 18:09:33 Dictated By: Zaid Ford MD Signed By: <Electronically signed by Zaid Ford MD in OV> 12/16/241810 DD/ 08 TD/TT: 12/16/241808 [employer] Re[employer] Specialist: Procedure Note Donotuseinterpreter, Image - 12/16/[address] [place] [address] [address] Scan Report Signed Patient: Teena Garza MMR#: [id number] : 1980Acct:[id number] Age/Sex: 44 / FADM Date: 12/16/24 Loc: .ED Attending Dr: Ordering Physician: Aaron Calderón MD Date of Service: 12/16/24 Procedure(s): CT angio chest PE protocol Accession Number(s): [id number] cc: Aaron Calderón MD; LOLIS ADAM NP Report Number: [id number]: Total DLP = 0.00 mGy-cm Reason for Exam: right sided pain, tachycardia CLINICAL HISTORY: right sided pain, tachycardia CT angiography chest with contrast. 3D Postprocessing. Comparison: None provided Findings: The heart size is normal. RV/LV ratio is normal. Unremarkable thoracic aorta and great vessels. No aneurysm. No acute pulmonary embolus. The visualized thyroid and mediastinum are unremarkable. There is right lower lobe consolidation, possible pneumonia or subsegmental atelectasis. The upper abdomen is unremarkable. The bones are intact. IMPRESSION: 1. No pulmonary emboli. 2. Right lower lobe consolidation, differential considerations noted This document has been electronically signed by: Zaid Ford MD on 12/16/2024 18:09:33 Dictated By: Zaid Ford MD Signed By: <Electronically signed by Zaid Ford MD in OV> 12/16/24 1811 DD/ 1809 TD/TT: 12/16/241808 [employer] Specialist: us [facility] External Provider IMG CT PROCEDURES Final Result * US Abdomen Limited (12/16/2024 3:52 PM EDT) Anatomical Region Laterality Modality Abdomen Ultrasound 12/16/2024 3:52 PM EDT Narrative 12/16/2024 4:09 PM EDT [place] [address] Ultrasound Report Signed Patient: Teena Garza MR#: [id number] : 1980 Acct:[id number] Age/Sex: 44 / F ADM Date: 12/16/24 Loc: HO.ED Attending Dr: Ordering Physician: Aaron Calderón MD Date of Service: 12/16/24 Procedure(s): US abdomen limited Accession Number(s): [id number] cc: Aaron Calderón MD; LOLIS ADAM NP Reason for Exam: RUQ pain, tenderness EXAMINATION: US ABDOMEN LIMITED CLINICAL INFORMATION: Right upper quadrant abdominal pain.. COMPARISON: None available. TECHNIQUE: Real-time imaging of the gallbladder and bile ducts performed. FINDINGS: GALLBLADDER: The gallbladder is physiologically distended without evidence of stones, sludge, polyps, wall thickening or pericholecystic fluid. COMMON BILE DUCT: Normal in caliber measuring 0.6 cm in diameter. FREE FLUID: None. US/US abdomen limited IMPRESSION: Normal gallbladder and bile ducts. Electronically signed by: Osbaldo Mcmahan MD 12/16/2024 04:06 PM EDT Dictated By: Osbaldo Mcmahan MD Signed By: <Electronically signed by Osbaldo Mcmahan MD in OV> 12/16/24 1606 DD/ 1552 TD/TT: 12/16/24 155 [employer] Re[employer] Specialist: Procedure Note Donotuseinterpreter, Image - 12/16/[address] [address] Ultrasound Report Signed Patient: Teena Garza MMR#: [id number] : 1980Acct:[id number] Age/Sex: 44 / FADM Date: 12/16/24 Loc: HO.ED Attending Dr: Ordering Physician: Aaron Calderón MD Date of Service: 12/16/24 Procedure(s): US abdomen limited Accession Number(s): [id number] cc: Aaron Calderón MD; LOLIS ADAM NP Reason for Exam: RUQ pain, tenderness EXAMINATION: US ABDOMEN LIMITED CLINICAL INFORMATION: Right upper quadrant abdominal pain.. COMPARISON: None available. TECHNIQUE: Real-time imaging of the gallbladder and bile ducts performed. FINDINGS: GALLBLADDER: The gallbladder is physiologically distended without evidence of stones, sludge, polyps, wall thickening or pericholecystic fluid. COMMON BILE DUCT: Normal in caliber measuring 0.6 cm in diameter. FREE FLUID: None. US/US abdomen limited IMPRESSION: Normal gallbladder and bile ducts. Electronically signed by: Osbaldo Mcmahan MD 12/16/2024 04:06 PM EDT Dictated By: Osbaldo Mcmahan MD Signed By: <Electronically signed by Osbaldo Mcmahan MD in OV> 12/16/24 1606 DD/ 1552 TD/TT: 12/16/24 1555 [employer] Specialist: us [facility] External Provider IMG US PROCEDURES Final Result * XR Chest 2 Views (12/16/2024 12:40 PM EDT) Anatomical Region Laterality Modality Chest Radiographic Heather ging 12/16/2024 12:4 0 PM EDT Narrative 12/16/2024 12:52 PM EDT [address] [address] XRay Report Signed Patient: Teena Garza MR#: [id number] : 1980 Acct:[id number] Age/Sex: 44 / F ADM Date: 12/16/24 Loc: HO.ED Attending Dr: Ordering Physician: Aaron Calderón MD Date of Service: 12/16/24 Procedure(s): XR chest 2V Accession Number(s): [id number] cc: Aaron Calderón MD; LOLIS ADAM NP [...] 12/16/24 1250 DD/ 1240 TD/TT: 12/16/24 1245 [employer] Re[employer] Specialist: Procedure Note Donotuseinterpreter, Image - 12/16/[address] [address] XRay Report Signed Patient: Teena Garza MMR#: [id number] : 1980Acct:[id number] Age/Sex: 44 / FADM Date: 12/16/24 Loc: .ED Attending Dr: Ordering Physician: Aaron Calderón MD Date of Service: 12/16/24 Procedure(s): XR chest 2V Accession Number(s): [id number] cc: Aaron Calderón MD; LOLIS ADAM NP [...] 12/16/24 1250 DD/ 1240 TD/TT: 12/16/24 1245 [employer] Re[employer] Specialist: [facility] External Provider IMG XR PROCEDURES Final Result * Hold Lavender - Possible Hematology (12/16/2024 12:13 PM EDT) Hold Lavender - Possible Hematololgy SEE NOTE [facility] Comment:Specimen will be hel d untested for 8 hours. Call Hematologyif testing is desired. 12/16/2024 12:1 3 PM EDT 12/16/2024 12:28 PM EDT Generic External Data Provider HISTORICAL/NON OR DERABLE LABS Final Result [facility] [address] [place] [phone] * (ABNORMAL) Lipid Panel, Standard (06/11/2024 10:40 AM EDT) Triglycerides 213(H) <150 mg/dL [facility] Comment:Desirable Triglyceri de: less than 150 mg/dLBorderline High Triglyceride 150-199 mg/dLHigh Triglyceride: 200-499 mg/dLVery High Triglyceride: greater than or equal to 5OO mg/dL Cholesterol 183 <200 mg/dL [facility] Comment:Desirable Cholestero l: less than 200 mg/dLBorderline High Cholesterol: 200-239 mg/dLHigh Cholesterol: greater than 239 mg/dL LDL Cholesterol Calculated 104(H) <100 mg/dL [facility] Comment:Desirable LDL: less than 100 mg/dLNear Optimal/Above Optimal LDL: 110- 129 mg/dLBorderline High LDL: 130-159 mg/dLHigh LDL: 160-189 mg/dLVery High LDL: greater than or equal to 190 mg/dL HDL Cholesterol 37(L) >40 mg/dL [facility] Comment:Desirable HDL: great er than 40 mg/dL Note: This HDL assay may give artificially low results in patients with liver disease. Blood Venous blood specimen / Unknown 06/11/2024 10:40 AM EDT 06/11/2024 1:11 PM EDT us Lolis Adam ANP LAB BLOOD ORDERABLES Final Resul t [facility] [address] [place] [phone] * BI US Breast Limited Left (12/24/2023 1:53 PM EDT) Anatomical Region Laterality Modality Breast Left Ultrasound 12/24/2023 1:53 PM EDT Narrative 12/24/2023 3:01 PM EDT [address] [place] [address] Ultrasound Report Signed Patient: Teena Garza MR#: [id number] : 1980 Acct:[id number] Age/Sex: 43 / F ADM Date: 12/24/23 Loc: HO.MAMMO Attending Dr: Lolis Adam NP Ordering Physician: LOLIS ADAM NP Date of Service: 12/24/23 Procedure(s): US breast LT limited mamm only Accession Number(s): [id number] cc: LOLIS ADAM NP EXAMINATION: MM DIAGNOSTIC DIGITAL BREAST TOMOSYNTHESIS, BILATERAL US BREAST LIMITED, LEFT CLINICAL INFORMATION: 43-year-old female, complaining of left breast lump 9:00 axis middle depth. Due for yearly. COMPARISON: Mammography: 07/17/2021, 06/04/2021, 05/23/2021 (all from [place]). TECHNIQUE: Digital breast tomosynthesis is performed in [...] The overall parenchymal pattern is unchanged from 2021. No skin or axillary abnormalities. ULTRASOUND: CLINICAL [...] Osbaldo Mcmahan MD 12/24/2023 02:58 PM EDT RP Dictated By: Osbaldo Mcmahan MD Signed By: <Electronically signed by Osbaldo Mcmahan MD in OV> 12/24/23 1458 DD/ 1353 TD/TT: 12/24/23 1415 Camp Recreation Specialist: Procedure Note Donotuseinterpreter, Image - 12/24/2023 [facility] [address] [place], [place] [address] Ultrasound Report Signed Patient: Teena Garza [facility]#: [id number] : 1980Acct:[id number] Age/Sex: 43 / FADM Date: 12/24/23 Loc: HO.MAMMO Attending Dr: Lolis Adam NP Ordering Physician: LOLIS ADAM NP Date of Service: 12/24/23 Procedure(s): US breast LT limited mamm only Accession Number(s): [id number] cc: LOLIS ADAM NP EXAMINATION: MM DIAGNOSTIC DIGITAL BREAST TOMOSYNTHESIS, BILATERAL US BREAST LIMITED, LEFT CLINICAL INFORMATION: 43-year-old female, complaining of left breast lump 9:00 axis middle depth. Due for yearly. COMPARISON: Mammography: 07/17/2021, 06/04/2021, 05/23/2021 (all from [place]). TECHNIQUE: Digital breast tomosynthesis is performed in [...] The overall parenchymal pattern is unchanged from 2021. No skin or axillary abnormalities. ULTRASOUND: CLINICAL [...] 12/24/23 1458 DD/ 1353 TD/TT: 12/24/23 1415 Camp Recreation Specialist: us Lolis Lubna [facility] IMG US PROCEDURES Edited Result - Final * Hepatitis C Antibody with Reflex to HCV, RNA, Quantitative, Real-Time PCR (05/16/2023 10:46 AM EST) Hepatitis C Antibody Nonreactive Nonreactive [facility] Comment:Antibodies to HCV no t detected; does not exclude early acuteHCV infection. Blood Venous blood specimen / Unknown 05/16/2023 10:46 AM EST 05/16/2023 11:35 AM EST Lolis Adam [facility] LAB BLOOD ORDERABLES Final Resul t Performing Organization Address [facility] Co de Phone Number [facility] [address] [place] [phone] * HIV-1/2 Antigen and Antibodies, Fourth Generation, with Reflexes (05/16/2023 10:46 AM EST) HIV AB/AG Nonreactive Nonreactive [facility] Comment:HIV-1 p24 Ag and/or HIV-1/HIV-2 Ab not detected.A test result that is nonreactive does not exclude thepossibility of exposure to or infection with HIV-1 and/orHIV-2. Nonreactive results in this assay for individualswith prior exposure to HIV-1 and/or HIV-2 may be due toantigen and antibody levels that are below the limit ofdetection of this assay.[employer] HIV Ag/Ab Combo assay result andsupplemental assay results should be interpreted inconjunction with the patient's clinical presentation,history and other laboratory results. If the results areinconsistent with clinical evidence, additional testing issuggested to confirm the result. Blood Venous blood specimen / Unknown 05/16/2023 10:46 AM EST 05/16/2023 11:35 AM EST us Lolis Adam ANP LAB BLOOD ORDERABLES Final Resul t Performing Organization Address [facility] Co de Phone Number [facility] [address] [place] [phone] from Last 3 Months or Most Recently Relevant to Health Maintenance Insurance [facility] C3 Care Teams Dimension Quarry Supervisor Relationship Specialty Start Date End Date Lolis Adam ANP [address] [place] [address] PCP - General Family Medicine 11/04/20 Kolby Morin, KariD [address] [place] [address] Pharmacist Internal Medicine 08/19/23
--- OUTSIDE RECORDS SUMMARY | 2025-01-25 13:15 | XMS_ITS | Encounter Summary ---
Author Organization [employer] Address [address] [facility] 7t [place] [address] Care Team Providers Care Inside Sales Engineer Name Role Phone Fiorella Calvo Primary Care Provider [phone] Kolby Morin PharmD Unavailable [phone] Reason for Visit * Reason Onset Date Comments Med Refill 05/09/2024 Encounter Details Date Type Department Care Team (Late st Contact Info) Description 05/09/2024 Refill [facility] [address] [place], [place] [phone] Jyoti Melendez NP [address] [place] [address] Type 2 diabetes mellitus with hyperlipidemia ([facility]/HCC) ([facility]) Social History Tobacco Use Types Packs/Day Years [...] Description 01/28/2025 2:15 PM EST Office Visit [facility] [address] [place] [address] Fiorella Calvo ANP [address] [place] [address] 02/01/2025 9:30 AM EST Office Visit [facility] [address] [place] [address] Lorna Ragsdale FNP [address] [place], [place] [phone] documented as of this encounter Goals Goal [...] documented as of this encounter Care Teams Inside Sales Engineer Relationship Specialty Start Date End Date Fiorella Calvo ANP [address] [place] [address] PCP - General Family Medicine 11/04/20 Kolby Morin PharmD [address] [place] [address] Pharmacist Internal Medicine 08/19/23 documented as of this encounter
--- OUTSIDE RECORDS SUMMARY | 2025-01-25 13:15 | XMS_ITS | Encounter Summary ---
Author Organization [employer] Address [address] [facility] 7 [place] [address] Care Team Providers Care Cancellation Clerk Name Role Phone Fiorella Calvo Primary Care Provider [phone] Kolby Morin PharmD Unavailable [phone] Reason for Visit * Reason Onset Date Comments Med Refill 07/29/2024 Encounter Details Date Type Department Care Team (Late st Contact Info) Description 07/29/2024 Refill [facility] [address] [place], [place] [phone] Fiorella Calvo ANP [address] [place] [address] Type 2 diabetes mellitus with hyperlipidemia (CMS/HCC) ([facility]/HCC); Diabetic polyneuropathy associated with type 2 [...] Description 01/28/2025 2:15 PM EST Office Visit [facility] [address] [place] [address] Fiorella Calvo ANP [address] [place] [address] 02/01/2025 9:30 AM EST Office Visit [facility] [address] [place] [address] Lorna Ragsdale FNP [address] [place] [address] documented as of this encounter Goals Goal [...] documented as of this encounter Care Teams Cancellation Clerk Relationship Specialty Start Date End Date Fiorella Calvo ANP [address] [place] [address] PCP - General Family Medicine 11/04/20 Kolby Morin PharmD [address] [place] [address] Pharmacist Internal Medicine 08/19/23 documented as of this encounter
--- OUTSIDE RECORDS SUMMARY | 2025-01-25 13:15 | XMS_ITS | Encounter Summary ---
Author Organization [employer] Address [address] [facility] 7 [place] [address] Care Team Providers Care Curtain Framer Name Role Phone Fiorella Calvo Primary Care Provider [phone] Kolby Morin PharmD Unavailable [phone] Reason for Visit * Reason Onset Date Comments Med Refill 06/28/2024 Encounter Details Date Type Department Care Team (Late st Contact Info) Description 06/28/2024 Refill [facility] 230 [place], [place] [phone] Fiorella Calvo ANP [address] [place] [address] Type 2 diabetes mellitus with hyperlipidemia (CMS/HCC) ([facility]/HCC); Diabetic polyneuropathy associated with type 2 diabetes [...] Description 01/28/2025 2:15 PM EST Office Visit [facility] [address] [place] [address] Fiorella Calvo ANP [address] [place] [address] 02/01/2025 9:30 AM EST Office Visit [facility] [address] [place] [address] Lorna Ragsdale FNP [address] [place] [address] documented as of this encounter Goals Goal [...] documented as of this encounter Care Teams Curtain Framer Relationship Specialty Start Date End Date Fiorella Calvo ANP [address] [place] [address] PCP - General Family Medicine 11/04/20 Kolby Morin PharmD [address] [place] [address] Pharmacist Internal Medicine 08/19/23 documented as of this encounter
--- OUTSIDE RECORDS SUMMARY | 2025-01-25 13:15 | XMS_ITS | Encounter Summary ---
Author Organization [employer] [facility] Address [address] [facility] 7t [place] [address] Care Team Providers Care Application Engineer Name Role Phone Fiorella Calvo Primary Care Provider [phone] Kolby Morin PharmD Unavailable [phone] Encounter Details Date Type Department Care Team (Late st Contact Info) Description 11/05/2023 Orders Only [facility] [address] [place], [place] [phone] Fiorella Calvo ANP [address] [place] [address] Social History Tobacco Use Types Packs/Day Years [...] PM EST Office Visit [facility] [address] [place] [address] Fiorella Calvo ANP [address] [place] [address] 02/01/2025 9:30 AM EST Office Visit [address] [address] Lorna Ragsdale FNP [address] [place] [address] documented as of this encounter Goals Goal Patient Goal Type Associated Problems Recent Progress Patient-Stated? Author Quit using tobacco (cigarettes, smokeless, etc) Tobacco Use No Kolby Morni, PharmD documented as of this encounter Visit Diagnoses Not on filedocumented in this encounter Additional Health Concerns Assessment Noted Time PHQ-9 Depression Total Score: 20 024 9:15 AM EDT documented as of this encounter Care Teams Application Engineer Relationship Specialty Start Date End Date Fiorella Calvo ANP [address] [place] [address] PCP - General Family Medicine 11/04/20 Kolby Morin, PharmD [address] [place] [address] Pharmacist Internal Medicine 08/19/23 documented as of this encounter
--- OUTSIDE RECORDS SUMMARY | 2025-01-25 13:15 | XMS_ITS | Encounter Summary ---
Author Organization [employer] Address 75 [facility] 7 [place] [address] Care Team Providers Care Peer Counselor Name Role Phone Fiorella Calvo Primary Care Provider [phone] Kolby Morin PharmD Unavailable [phone] Reason for Visit * Reason Onset Date Comments Med Refill 04/08/2024 Encounter Details Date Type Department Care Team (Late st Contact Info) Description 04/08/2024 Refill [facility] 230 [place], [place] [phone] Fiorella Calvo ANP [address] [place] [address] Type 2 diabetes mellitus with hyperlipidemia (CMS/HCC) ([facility]/HCC); Diabetic polyneuropathy associated with type 2 [...] Description 01/28/2025 2:15 PM EST Office Visit [facility] [address] [place] [address] Fiorella Calvo ANP [address] [place] [address] 02/01/2025 9:30 AM EST Office Visit [facility] [address] [place] [address] Lonra Ragsdale FNP [address] [place] [address] documented as of this encounter Goals Goal [...] documented as of this encounter Care Teams Peer Counselor Relationship Specialty Start Date End Date Fiorella Calvo ANP [address] [place] [address] PCP - General Family Medicine 11/04/20 Kolby Morin PharmD [address] [place] [address] Pharmacist Internal Medicine 08/19/23 documented as of this encounter
--- OUTSIDE RECORDS SUMMARY | 2025-01-25 13:16 | XMS_ITS | Encounter Summary ---
Author Organization [employer] Address [address] [facility] 7t [place] [address] Care Team Providers Care Leadite Man Name Role Phone Fiorella Calvo Primary Care Provider [phone] Kolby Morin PharmD Unavailable [phone] Reason for Visit * Reason Comments Med Refill Encounter Details Date Type Department Care Team (Late st Contact Info) Description 01/25/2025 Refill [facility] [address] [place] [address] Fiorella Calvo ANP [address] [place] [address] Chronic pain of left knee; Osteoarthritis of [...] Description 01/28/2025 2:15 PM EST Office Visit [facility] MED[facility]INE [address] [place] [address] Fiorella Calvo ANP [address] [place] [address] 02/01/2025 9:30 AM EST Office Visit [facility]INE [address] [place] [address] Lorna Ragsdale FNP [address] [place] [address] documented as of this encounter Goals Goal [...] Assessment Noted Time PHQ-9 Depression Total Score: 21 025 1:51 PM EDT documented as of this encounter Care Teams Leadite Man Relationship Specialty Start Date End Date Fiorella Calvo ANP [address] [place] [address] PCP - General Family Medicine 11/04/20 Kolby Morin, Love [address] [place] [address] Pharmacist Internal Medicine 08/19/23 documented as of this encounter
--- OUTSIDE RECORDS SUMMARY | 2025-01-25 13:16 | XMS_ITS | Encounter Summary ---
Author Organization [employer] [facility] Address [address] [place] [address] 7 [place] [address] Care Team Providers Care Mds Nurse Name Role Phone Fiorella Calvo Primary Care Provider [phone] Kolby Morin PharmD Unavailable [phone] Reason for Visit * Reason Comments Med Refill Encounter Details Date Type Department Care Team (Late st Contact Info) Description 07/17/2023 Refill [facility] MEDICINE [address] [place] [address] [phone] Fiorella Calvo ANP [address] [place] [address] [phone] Type 2 diabetes mellitus with hyperlipidemia ([facility]) ([facility]) Social History Tobacco Use Types Packs/Day [...] Description 01/28/2025 2:15 PM EST Office Visit [facility] [address] [place] [address] [phone] Fiorella Calvo ANP 230 [place], [place] [phone] 02/01/2025 9:30 AM EST Office Visit [facility] 230 [place] [address] Lorna Ragsdale FNP 230 [place] [address] documented as of this encounter Visit Diagnoses Diagnosis Type 2 diabetes mellitus with hyperlipidemia (HCC) documented in this encounter Care Teams Mds Nurse Relationship Specialty Start Date End Date Fiorella Calvo ANP [address] [place] [address] PCP - General Family Medicine 11/04/20 Kolby Morin, Love [address] [place] [address] Pharmacist Internal Medicine 08/19/23 documented as of this encounter
--- OUTSIDE RECORDS SUMMARY | 2025-01-25 13:16 | XMS_ITS | Encounter Summary ---
Author Organization [employer] [facility] Address [address] [place] [address] 7 [place] [address] Care Team Providers Care Mixer Runner Name Role Phone Fiorella Calvo Primary Care Provider [phone] Kolby Morin PharmD Unavailable [phone] Reason for Visit * Reason Onset Date Comments Med Refill 07/16/2023 Encounter Details Date Type Department Care Team (Late st Contact Info) Description 07/16/2023 Refill [facility] [address] [place] [address] Fiorella Calvo ANP [address] [place] [address] Diabetes mellitus type 2 in obese Social [...] Description 01/28/2025 2:15 PM EST Office Visit [facility] [address] [place] [address] Fiorella Calvo ANP [address] [place] [address] 02/01/2025 9:30 AM EST Office Visit [facility] 230 [place], [place] [phone] Lorna Ragsdale FNP [address] [place], [place] [phone] documented as of this encounter Visit Diagnoses Diagnosis Diabetes mellitus type 2 in obese Type II or unspecified type diabetes mellitus without mention of complication, not stated as uncontrolled documented in this encounter Care Teams Mixer Runner Relationship Specialty Start Date End Date Fiorella Calvo ANP [address] [place] [address] [phone] PCP - General Family Medicine 11/04/20 Kolby Morin, Love [address] [place] [address] [phone] Pharmacist Internal Medicine 08/19/23 documented as of this encounter
--- OUTSIDE RECORDS SUMMARY | 2025-01-25 13:16 | XMS_ITS | Encounter Summary ---
Author Organization [employer] [facility] Address [address] [facility] 7 [place] [address] Care Team Providers Care Business Planning Director Name Role Phone Fiorella Calvo Primary Care Provider [phone] Kolby Morin PharmD Unavailable [phone] Reason for Visit * Reason Onset Date Comments Nurse Triage 11/30/2024 Encounter Details Date Type Department Care Team (Late st Contact Info) Description 11/30/2024 Telephone [facility] MED[facility]INE [address] [place], [place] [phone] Fiorella Calvo ANP [address] [place], [place] [phone] Nurse Triage Social History Tobacco Use Types [...] 11/30/2024 5:48 PM EDT Triage call with [facility] pump operator , [place] [address]. Pt reports blood sugar of 269 today [...] You become worse * Telephone Encounter - Romanaime Spencer - 11/30/2024 4:28 PM EDT Symptom: High Blood Sugar - Caller Reports Outcome: Talk to a nurse or provider within 15 minutes Reason: Known blood sugar above 300 Please contact pt at [phone]. (Japanese Speaker) documented in this encounter Plan of Treatment Upcoming Encounters Date Type Department Care Team (Late st Contact Info) Description 01/28/2025 2:15 PM EST Office Visit [address] [address] Fiorella Calvo ANP [address] [place] [address] 02/01/2025 9:30 AM EST Office Visit [address] [address] Lorna Ragsdale FNP [address] [place] [address] documented as of this encounter Goals Goal Patient Goal Type Associated Problems Recent Progress Patient-Stated? Author Quit using tobacco (cigarettes, smokeless, etc) Tobacco Use No Kolby Morin, Love documented as of this encounter Visit Diagnoses Not on filedocumented in this encounter Additional Health Concerns Assessment Noted Time PHQ-9 Depression Total Score: 26 025 11:43 AM EST documented as of this encounter Care Teams Business Planning Director Relationship Specialty Start Date End Date Fiorella Calvo ANP [address] [place] [address] PCP - General Family Medicine 11/04/20 Kolby Morin, PharmD [address] [place] [address] Pharmacist Internal Medicine 08/19/23 documented as of this encounter
--- OUTSIDE RECORDS SUMMARY | 2025-01-25 13:16 | XMS_ITS | Encounter Summary ---
Author Organization [employer] Address 75 [facility] 7 [place] [address] Care Team Providers Care Photographic Technician Name Role Phone Fiorella Calvo Primary Care Provider [phone] Kolby Morin PharmD Unavailable [phone] Reason for Visit * Reason Comments Med Refill Encounter Details Date Type Department Care Team ([facility] st Contact Info) Description 04/17/2024 Refill [facility] 230 [place], [place] [phone] Fiorella Calvo ANP [address] [place] [address] Type 2 diabetes mellitus with hyperlipidemia ([facility]/HCC) ([facility]) Social History Tobacco Use Types Packs/Day [...] with others, in a hotel, in a custodial, living outside on the street, on a [...] awful might happen 3 04/17/2024 11:43 AM EST Kayce Lopez [place] YARIEL-7 Total Score 19 04/17/2024 11:43 AM EST Kayce Lopez [place] documented as of this encounter Miscellaneous Notes * Telephone Encounter - Monica Fitzgerald RN - 04/20/2024 11:19 AM EST T/C to pt via BLS Combination Building Inspector Lexa #[id number]. Pt reports the following blood glucose readings after increasing Tresiba dose: 235, 245, 233, 164, 140. Pt agrees to f/u with pcp as scheduled and call [facility] prn symptoms. * Telephone Encounter - [...] Description 01/28/2025 2:15 PM EST Office Visit [address] [address] Fiorella Calvo ANP [address] [place] [address] 02/01/2025 9:30 AM EST Office Visit [address] [address] Lorna Ragsdale FNP [address] [place] [address] documented as of this encounter Goals Goal [...] documented as of this encounter Care Teams Photographic Technician Relationship Specialty Start Date End Date Fiorella Calvo ANP [address] [place] [address] PCP - General Family Medicine 11/04/20 Kolby Morin, Love [address] [place] [address] Pharmacist Internal Medicine 08/19/23 documented as of this encounter
--- OUTSIDE RECORDS SUMMARY | 2025-01-25 13:16 | XMS_ITS | Encounter Summary ---
Author Organization [employer] Address 75 [facility] 7t [place] [address] Care Team Providers Care Duplication Specialist Name Role Phone Fiorella Calvo Primary Care Provider [phone] Kolby Morin PharmD Unavailable [phone] Encounter Details Date Type Department Care Team ([facility] st Contact Info) Description 01/13/2025 Results Follow-Up [facility]INE [address] [place] [address] Fiorella Calvo ANP [address] [place] [address] POCT Glucose, POCT Hgb A1c, POCT Glucose, Additional followed-up results: 3 Social History Tobacco Use Types Packs/Day Years [...] with others, in a hotel, in a retirement, living outside on the street, on a [...] the past 12 months, has t he [employer], gas, oil or water [employer] threatened to shut off services in your [...] Result Encounter Note - RIANA Wahl - 01/13/2025 5:08 PM EDT Jd Teena, El an??lisis vaginal revel?? candidiasis, probablemente debido a la diabetes o a la hiperglucemia. Le recet?? Diflucan a maciel [facility]: tome isamar tableta isamar vez y repita el tratamiento en danay d??as. Si suss??ntomas vaginales persisten, por favor ll??menos o venga a vernos. Please call our office if you have any questions. Por favor llame a la oficina si tiene preguntas. Take care, Cu??Fiorella de los santos CIVIL CAD DESIGNER documented in this encounter Plan of Treatment Upcoming Encounters Date Type Department Care Team (Late st Contact Info) Description 01/28/2025 2:15 PM EST Office Visit [facility]INE [address] [place] [address] Fiorella Calvo ANP [address] [place], [place] [phone] 02/01/2025 9:30 AM EST Office Visit [address] [phone] Lorna Ragsdale FNP [address] [place], [place] [phone] documented as of this encounter Goals Goal Patient Goal Type Associated Problems Recent Progress Patient-Stated? Author Quit using tobacco (cigarettes, smokeless, etc) Tobacco Use No Kolby Morin, PharmD documented as of this encounter Visit Diagnoses Not on filedocumented in this encounter Additional Health Concerns Assessment Noted Time PHQ-9 Depression Total Score: 21 025 1:51 PM EDT documented as of this encounter Care Teams Duplication Specialist Relationship Specialty Start Date End Date Fiorella Calvo ANP [address] [place] [address] PCP - General Family Medicine 11/04/20 Kolby Morin, PharmD [address] [place] [address] [phone] Pharmacist Internal Medicine 08/19/23 documented as of this encounter
--- OUTSIDE RECORDS SUMMARY | 2025-01-25 13:16 | XMS_ITS | Encounter Summary ---
Author Organization [employer] Address 75 [facility] 7t [place] [address] Care Team Providers Care Liquor Tester Name Role Phone Fiorella Calvo Primary Care Provider [phone] Kolby Morin PharmD Unavailable [phone] Reason for Visit * Reason Onset Date Comments Med Refill 04/14/2024 Encounter Details Date Type Department Care Team (Late st Contact Info) Description 04/14/2024 Refill [facility] [address] [place], [place] [phone] Fiorella Calvo ANP 230 [place] [address] Type 2 diabetes mellitus with hyperlipidemia ([facility]/HCC) ([facility]) Social History Tobacco Use Types Packs/Day Years [...] Description 01/28/2025 2:15 PM EST Office Visit [facility] [address] [place] [address] Fiorella Calvo ANP 230 [place] [address] 02/01/2025 9:30 AM EST Office Visit [address] [address] Lorna Ragsdale FNP 230 [place] [address] documented as of this encounter Goals Goal [...] documented as of this encounter Care Teams Liquor Tester Relationship Specialty Start Date End Date Fiorella Calvo ANP [address] [place] [address] PCP - General Family Medicine 11/04/20 Kolby Morin, PharmD [address] [place] [address] Pharmacist Internal Medicine 08/19/23 documented as of this encounter
--- OUTSIDE RECORDS SUMMARY | 2025-01-25 13:16 | XMS_ITS | Encounter Summary ---
Author Organization [employer] Address 75 [facility] 7t [place] [address] Care Team Providers Care Aircraft Refueller Name Role Phone Fiorella Calvo Primary Care Provider [phone] Kolyb Morin PharmD Unavailable [phone] Reason for Visit * Reason Onset Date Comments Durable Medical Equipment 01/21/2025 Encounter Details Date Type Department Care Team (Late st Contact Info) Description 01/21/2025 Telephone [facility] 230 [place], [place] [phone] Fiorella Calvo ANP 230 [place], [place] [phone] Durable Medical Equipment Social History Tobacco Use [...] the past 12 months, has t he [employer], gas, oil or water company threatened to [...] * Telephone Encounter - RIANA Wahl - 01/25/2025 10:48 AM EST Spoke w/ pt, see note in chart * Telephone Encounter - Mary Grant - 01/22/2025 2:51 PM EST Please see below. Thank you * Telephone Encounter - Jacob Mckinley - 01/21/2025 9:43 AM EST Tc from pt requesting an alternative for Glucose monitor due to incorrect reading. Pt reports that she was at an apt today where her Sugar was taking and it was not as high has the monitor was. Any questions contact pt at [phone] documented in this encounter Plan of Treatment Upcoming Encounters Date Type Department Care Team (Late st Contact Info) Description 01/28/2025 2:15 PM EST Office Visit [facility] [address] [place] [address] Fiorella Calvo ANP 230 [place] [address] 02/01/2025 9:30 AM EST Office Visit [address] [address] Lorna Ragsdale FNP 230 [place], [place] [phone] documented as of this encounter Goals Goal Patient Goal Type Associated Problems Recent Progress Patient-Stated? Author Quit using tobacco (cigarettes, smokeless, etc) Tobacco Use No Kolby Morin, KariD documented as of this encounter Visit Diagnoses Not on filedocumented in this encounter Additional Health Concerns Assessment Noted Time PHQ-9 Depression Total Score: 21 025 1:51 PM EDT documented as of this encounter Care Teams Aircraft Refueller Relationship Specialty Start Date End Date Fiorella Calvo ANP [address] [place] [address] [phone] PCP - General Family Medicine 11/04/20 Kolby Morin, PharmD [address] [place] [address] [phone] Pharmacist Internal Medicine 08/19/23 documented as of this encounter
--- OUTSIDE RECORDS SUMMARY | 2025-01-25 13:16 | XMS_ITS | Encounter Summary ---
Author Organization [employer] Address 75 [facility] 7t [place] [address] Care Team Providers Care Wood Borer Name Role Phone Fiorella Calvo Primary Care Provider [phone] Kolby Moirn PharmD Unavailable [phone] Reason for Visit * Reason Onset Date Comments Medication Question 01/21/2025 Encounter Details Date Type Department Care Team ([facility] st Contact Info) Description 01/21/2025 Telephone [facility] 230 [place], [place] [phone] Fiorella Calvo ANP 230 [place], [place] [phone] Medication Question Social History Tobacco Use Types Packs/Day Years [...] encounter Miscellaneous Notes * Telephone Encounter - Farheen Polk RN - 01/22/2025 1:50 PM EST TC placed to the pt with [facility] quantitative associate #[id number] to follow up on pt request for an alternative to the FreeStyle Lite Glucometer due to cost. Pt was advised that RN contacted the [facility] pharmacy who confirmed that the pt has used the lifetime coupon as supplied by [employer] and would have to pay 19.64 out of pocket. If the pt can't cover this cost, RN gave the number for [facility] to call and see if they can send a replacement. Pt stated understanding and had no further questions at this time. * Telephone Encounter - Roman Spencer - 01/21/2025 1:55 PM EST Tc from pt requesting a call back regarding glucose monitor stating there is a copay and would liketo discuss a possible alternative. Please contact pt at [phone]. (Romanian Speaker) documented in this encounter Plan of Treatment Upcoming Encounters Date Type Department Care Team (Late st Contact Info) Description 01/28/2025 2:15 PM EST Office Visit [address] [address] Fiorella Calvo ANP [address] [place] [address] 02/01/2025 9:30 AM EST Office Visit [address] [address] Lorna Ragsdale FNP [address] [place] [address] documented as of this encounter Goals Goal Patient Goal Type Associated Problems Recent Progress Patient-Stated? Author Quit using tobacco (cigarettes, smokeless, etc) Tobacco Use No Kolby Morin, Love documented as of this encounter Visit Diagnoses Not on filedocumented in this encounter Additional Health Concerns Assessment Noted Time PHQ-9 Depression Total Score: 21 025 1:51 PM EDT documented as of this encounter Care Teams Wood Borer Relationship Specialty Start Date End Date Fiorella Calvo ANP [address] [place] [address] PCP - General Family Medicine 11/04/20 Kolby Morin, PharmD [address] [place] [address] Pharmacist Internal Medicine 08/19/23 documented as of this encounter
--- OUTSIDE RECORDS SUMMARY | 2025-01-25 13:16 | XMS_ITS | Encounter Summary ---
Author Organization [facility] Address [address] [place] [address] 7t [place] [address] Care Team Providers Care Guest Service Team Leader Name Role Phone Fiorella Calvo Primary Care Provider [phone] Kolby Morin PharmD Unavailable [phone] Reason for Referral * Imaging (Urgent) - Authorized Specialty Diagnoses / Procedures Referred By Contac t Referred To Contact Radiology Diagnoses Hemianopsia Procedures MR Brain w/o Contrast Fiorella Calvo ANP 230 [place] [address] Phone: tel: fax: [address] Phone: tel: fax: Referral ID Status Reason Start Date Expiration Date V isits Requested Visits Authorized [id number] Authorized 01/25/2025 01/25/2026 1 1 Encounter Details Date Type Department Care Team (Late st Contact Info) Description 01/25/2025 Orders Only [facility] 230 [place] [address] Fiorella Calvo ANP 230 [place], [place] [phone] Hemianopsia (Primary Dx) Social History Tobacco Use Types [...] AM EDT documented as of this encounter Progress Notes * RIANA Wahl - 01/25/2025 10:13 AM EST Aging update needed Diagnoses and all orders for this visit: Hemianopsia - 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 [address] Fiorella Calvo ANP 230 [place] [address] 02/01/2025 9:30 AM EST Office Visit [facility] 230 [place] [address] Lorna Ragsdale, ANASTASIA 230 [place], [place] [phone] Scheduled Orders Name Type Priority Associated Diagnoses Orde r Schedule MR Brain w/o Contrast Imaging Urgent Hemianopsia Expected: 01/25/2025, Expires: 01/25/2026 documented as of this encounter Goals Goal Patient Goal Type Associated Problems Recent Progress Patient-Stated? 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
--- OUTSIDE RECORDS SUMMARY | 2025-01-25 13:16 | XMS_ITS | Encounter Summary ---
Author Organization [facility] Address [address] [place] [address] 7t [place] [address] Care Team Providers Care Formulation Scientist Name Role Phone Fiorella Calvo Primary Care Provider [phone] Kolby Morin PharmD Unavailable [phone] Reason for Visit * Reason Comments Med Refill Encounter Details Date Type Department Care Team (Late st Contact Info) Description 09/18/2023 Refill [facility] [address] [place] [address] [phone] Fiorella Calvo ANP 230 [place] [address] Pain and swelling of left knee Social [...] Description 01/28/2025 2:15 PM EST Office Visit [address] [address] Fiorella Calvo ANP 230 [place] [address] 02/01/2025 9:30 AM EST Office Visit [address] [phone] Lorna Ragsdale FNP 230 [place], [place] [phone] documented as of this encounter Goals Goal [...] documented as of this encounter Care Teams Formulation Scientist Relationship Specialty Start Date End Date Fiorella Calvo ANP [address] [place] [address] PCP - General Family Medicine 11/04/20 Kolby Morin, PharmD [address] [place] [address] Pharmacist Internal Medicine 08/19/23 documented as of this encounter
--- OUTSIDE RECORDS SUMMARY | 2025-01-25 13:16 | XMS_ITS | Encounter Summary ---
Author Organization [employer] Address 75 [facility] 7 [place] [address] Care Team Providers Care Manager Privacy Name Role Phone Fiorella Calvo Primary Care Provider [phone] Kolby Morin PharmD Unavailable [phone] Reason for Visit * Reason Onset Date Comments Med Refill 04/15/2024 Encounter Details Date Type Department Care Team (Late st Contact Info) Description 04/15/2024 Refill [facility] 230 [place], [place] [phone] Fiorella Calvo ANP 230 [place] [address] Type 2 diabetes mellitus with hyperlipidemia (CMS/HCC) ([facility]/HCC); Diabetic polyneuropathy associated with type 2 diabetes [...] Description 01/28/2025 2:15 PM EST Office Visit [facility] [address] [place] [address] Fiorella Calvo ANP 230 [place] [address] 02/01/2025 9:30 AM EST Office Visit [address] [address] Lorna Ragsdale FNP 230 [place] [address] documented as of this encounter Goals Goal [...] as of this encounter Care Teams Manager Privacy Relationship Specialty Start Date End Date Fiorella Calvo ANP [address] [place] [address] PCP - General Family Medicine 11/04/20 Kolby Morin, KariD [address] [place] [address] Pharmacist Internal Medicine 08/19/23 documented as of this encounter
--- OUTSIDE RECORDS SUMMARY | 2025-01-25 13:16 | XMS_ITS | Encounter Summary ---
Author Organization [employer] Address 75 [facility] 7 [place] [address] Care Team Providers Care Lumber Hacker Name Role Phone Fiorella Calvo Primary Care Provider [phone] Kolby Morin PharmD Unavailable [phone] Reason for Visit * Reason Onset Date Comments PT1 04/15/2024 Encounter Details Date Type Department Care Team ([facility] st Contact Info) Description 04/15/2024 Telephone [facility] 230 [place], [place] [phone] Fiorella Calvo ANP 230 [place], [place] [phone] PT1 Social History Tobacco Use Types Packs/Day [...] Y/N: Yes Provider name or facility name: [facility] [address] [facility], [place] [address] Escort needed: Y/N: No Do you have a wheelchair: Y/N: No If yes- Manual or electric: N/A Visits: (2x monthly) Patient calling requesting PT1 Home Address verified: Y/N: Yes Provider name or facility name: [facility] 230 [place] [address]. Escort needed: Y/N: No Do you have a wheelchair: Y/N: No If yes- Manual or electric: N/A Visits: (2x monthly) Patient calling requesting PT1 Home Address verified: Y/N: Yes Provider name or facility name: [address] Floor, [place] [address] Escort needed: Y/N: No Do you have a wheelchair: Y/N: No If yes- Manual or electric: N/A Visits: (2x monthly) documented in this encounter Plan of Treatment Upcoming Encounters Date Type Department Care Team (Late st Contact Info) Description 01/28/2025 2:15 PM EST Office Visit [facility] 230 [place] [address] Fiorella Calvo ANP [address] [place] [address] 02/01/2025 9:30 AM EST Office Visit [facility] 230 [place] [address] Lorna Ragsdale FNP 230 [place] [address] documented as of this encounter Goals Goal Patient Goal Type Associated Problems Recent Progress Patient-Stated? Author Quit using tobacco (cigarettes, smokeless, etc) Tobacco Use No Kolby Morin, Love documented as of this encounter Visit Diagnoses Not on filedocumented in this encounter Additional Health Concerns Assessment Noted Time PHQ-9 Depression Total Score: 20 024 9:15 AM EDT documented as of this encounter Care Teams Lumber Hacker Relationship Specialty Start Date End Date Fiorella Calvo ANP 230 [place] [address] PCP - General Family Medicine 11/04/20 Kolby Morin, PharmD 230 [place] [address] Pharmacist Internal Medicine 08/19/23 documented as of this encounter
--- OUTSIDE RECORDS SUMMARY | 2025-01-25 13:16 | XMS_ITS | Encounter Summary ---
Author Organization [employer] [facility] Address [address] [place] [address] 7t [place] [address] Care Team Providers Care Sales Department Supervisor Name Role Phone Fiorella Calvo Primary Care Provider [phone] Kolby Morin PharmD Unavailable [phone] Reason for Visit * Reason Onset Date Comments Nurse Triage 09/11/2023 Encounter Details Date Type Department Care Team (Late st Contact Info) Description 09/11/2023 Telephone [facility] MEDICINE 230 [place], [place] [phone] Fiorella Calvo ANP 230 [place] [address] Nurse Triage Social History Tobacco Use Types [...] 09/11/2023 11:35 AM EDT Triage call with [place] Lead Security Officer ID [id number] Pt reports has had chest pain for [...] Chest Pain (Adult) Protocol-Based Disposition: Go to ED/[facility] Now (or to Office with PCP Approval) [...] on chest The caller accepted this outcome Nepali speaker documented in this encounter Plan of Treatment Upcoming Encounters Date Type Department Care Team (Late st Contact Info) Description 01/28/2025 2:15 PM EST Office Visit [facility] 230 [place] [address] Fiorella Calvo ANP 230 [place] [address] 02/01/2025 9:30 AM EST Office Visit [facility] 230 [place], [place] [phone] Lorna Ragsdale FNP 230 [place], [place] [phone] documented as of this encounter Goals Goal [...] as of this encounter Care Teams Sales Department Supervisor Relationship Specialty Start Date End Date Fiorella Calvo ANP [address] [place] [address] [phone] PCP - General Family Medicine 11/04/20 Kolby Morin, PharmD [address] [place] [address] Pharmacist Internal Medicine 08/19/23 documented as of this encounter
--- OUTSIDE RECORDS SUMMARY | 2025-01-25 13:16 | XMS_ITS | Encounter Summary ---
Author Organization [employer] Address 75 [facility] 7t [place] [address] Care Team Providers Care Rotary Soil Stabilizer Name Role Phone Fiorella Calvo Primary Care Provider [phone] Kolby Morin PharmD Unavailable [phone] Reason for Visit * Reason Onset Date Comments Call Back Request 04/16/2024 Encounter Details Date Type Department Care Team ([facility] st Contact Info) Description 04/16/2024 Telephone [facility] 230 [place], [place] [phone] Fiorella Calvo ANP 230 [place], [place] [phone] Call Back Request Social History Tobacco Use [...] the past 12 months, has t he [employer], gas, oil or water company threatened to [...] from pt returning call Please contact at [phone] documented in this encounter Plan of Treatment Upcoming Encounters Date Type Department Care Team (Late st Contact Info) Description 01/28/2025 2:15 PM EST Office Visit [address] [address] Fiorella Calvo ANP [address] [place] [address] 02/01/2025 9:30 AM EST Office Visit [address] [address] Lorna Ragsdale FNP [address] [place] [address] documented as of this encounter Goals Goal Patient Goal Type Associated Problems Recent Progress Patient-Stated? Author Quit using tobacco (cigarettes, smokeless, etc) Tobacco Use No Kolby Morin PharmD documented as of this encounter Visit Diagnoses Not on filedocumented in this encounter Additional Health Concerns Assessment Noted Time PHQ-9 Depression Total Score: 20 024 9:15 AM EDT documented as of this encounter Care Teams Rotary Soil Stabilizer Relationship Specialty Start Date End Date Fiorella Calvo ANP [address] [place] [address] PCP - General Family Medicine 11/04/20 Kolby Morin, Love [address] [place] [address] Pharmacist Internal Medicine 08/19/23 documented as of this encounter
--- OUTSIDE RECORDS SUMMARY | 2025-01-25 13:16 | XMS_ITS | Encounter Summary ---
Author Organization [employer] Address 75 [facility] 7t [place] [address] Care Team Providers Care Mobile Solutions Architect Name Role Phone Fiorella Calvo Primary Care Provider [phone] Kolby Morin PharmD Unavailable [phone] Reason for Visit * Reason Onset Date Comments Med Refill 01/25/2025 Encounter Details Date Type Department Care Team (Late st Contact Info) Description 01/25/2025 Refill [facility] MEDICINE 230 [place] [address] Fiorella Calvo ANP [address] [place] [address] Chronic pain of left knee; Osteoarthritis of [...] Description 01/28/2025 2:15 PM EST Office Visit [facility] MED[facility]INE [address] [place] [address] Fiorella Calvo ANP [address] [place] [address] 02/01/2025 9:30 AM EST Office Visit [facility] MED[facility]INE [address] [place] [address] [phone] Lorna Ragsdale FNP 230 [place] [address] documented as of this encounter Goals Goal [...] documented as of this encounter Care Teams Mobile Solutions Architect Relationship Specialty Start Date End Date Fiorella Calvo ANP [address] [place] [address] PCP - General Family Medicine 11/04/20 Kolby Morin, Love [address] [place] [address] Pharmacist Internal Medicine 08/19/23 documented as of this encounter
--- OUTSIDE RECORDS SUMMARY | 2025-01-25 13:16 | XMS_ITS | Encounter Summary ---
Author Organization [employer] Address 75 [facility] 7 [place] [address] Care Team Providers Care Driller And Broacher Name Role Phone Fiorella Calvo Primary Care Provider [phone] Kolby Morin PharmD Unavailable [phone] Reason for Visit * Reason Comments Med Refill Encounter Details Date Type Department Care Team ([facility] st Contact Info) Description 01/19/2025 Refill [facility] MEDICINE 230 [place], [place] [phone] Fiorella Calvo ANP 230 [place] [address] Type 2 diabetes mellitus with hyperlipidemia (HCC) Social History Tobacco Use Types Packs/Day [...] Description 01/28/2025 2:15 PM EST Office Visit [facility] MEDICINE [address] [place] [address] Fiorella Calvo ANP 230 [place] [address] 02/01/2025 9:30 AM EST Office Visit [facility] MEDICINE [address] [place] [address] Lorna Ragsdale FNP 230 [place] [address] documented as of this encounter Goals Goal [...] documented as of this encounter Care Teams Driller And Broacher Relationship Specialty Start Date End Date Fiorella Calvo ANP 230 [place] [address] PCP - General Family Medicine 11/04/20 Kolby Morin PharmD 230 [place] [address] Pharmacist Internal Medicine 08/19/23 documented as of this encounter
--- OUTSIDE RECORDS SUMMARY | 2025-01-25 13:16 | XMS_ITS | Encounter Summary ---
Author Organization [employer] Address 75 [facility] 7 [place] [address] Care Team Providers Care Chemical Mixer Name Role Phone Fiorella Calvo Primary Care Provider [phone] Kolby Morin PharmD Unavailable [phone] Reason for Visit * Reason Onset Date Comments Med Refill 12/04/2024 Encounter Details Date Type Department Care Team (Late st Contact Info) Description 12/04/2024 Refill [facility] MED[facility]INE 230 [place], [place] [phone] Fiorella Calvo ANP 230 [place] [address] Type 2 diabetes mellitus with hyperlipidemia (CMS/HCC) ([facility]/HCC); Diabetic polyneuropathy associated with type 2 [...] Description 01/28/2025 2:15 PM EST Office Visit [facility] MEDICINE [address] [place] [address] Fiorella Calvo ANP 230 [place] [address] 02/01/2025 9:30 AM EST Office Visit [facility] MEDICINE [address] [place] [address] Lorna Ragsdale FNP 230 [place] [address] documented as of this encounter Goals Goal [...] documented as of this encounter Care Teams Chemical Mixer Relationship Specialty Start Date End Date Fiorella Calvo ANP 230 [place] [address] PCP - General Family Medicine 11/04/20 Kolby Morin PharmD 230 [place] [address] Pharmacist Internal Medicine 08/19/23 documented as of this encounter
--- OUTSIDE RECORDS SUMMARY | 2025-01-25 13:16 | XMS_ITS | Encounter Summary ---
Author Organization [employer] Address 75 [facility] 7t [place] [address] Care Team Providers Care Freelance Digital Project Manager Name Role Phone Fiorella Calvo Primary Care Provider [phone] Kolby Morin PharmD Unavailable [phone] Encounter Details Date Type Department Care Team ([facility] st Contact Info) Description 01/25/2025 Orders Only [facility] MEDICINE [address] [place], [place] [phone] Fiorella Calvo ANP 230 [place] [address] Cough with hemoptysis (Primary Dx); Type 2 [...] as of this encounter Progress Notes * RINAA Wahl - 01/25/2025 10:23 AM EST Spoke w/ pt w/ [employer] interpreters utilized for Kyrgyz interpretation via phone, #[phone] She is cont to have hemoptysis and feel SOB. Reports BG on sensor are higher than w/ [facility]. She doesnot have jaun strips. Asked her to get these from [facility] and use reader as glucometer as she is being charged for freestyle lite glucometer here. Reviewed reader = both sensor reador and regular glucometer. She needs neos strips. She got PET CT done at [facility] but I do not yet have these results. Reviewed w/ pt if she feels any worse to go to ED for evaluation of SOB, hemoptysis. Has known suspicious R lung mass. She is aware of appointment at [facility] pulm 02/05/25 at 1:30. I will call [facility] for Jaun strips and [facility] to request PET scan report. She will keep our appointment on 01/28 and get labs as ordered by Dr. Godwin. Called [facility] and [facility] for PETCT to call me/fax result if report is yet available. Per [facility] they need new prescription for jaun strips b/c it cannot have more than 11 refills. Have re-sent and gave my contact # for any issues. documented in this encounter Plan of Treatment Upcoming Encounters Date Type Department Care Team (Late st Contact Info) Description 01/28/2025 2:15 PM EST Office Visit [address] [phone] Fiorella Calvo ANP [address] [place] [address] [phone] 02/01/2025 9:30 AM EST Office Visit [address] [phone] Lorna Ragsdale FNP [address] [place] [address] [phone] Scheduled Orders Name Type Priority Associated Diagnoses Orde r Schedule Prothrombin Time-INR Lab Routine Cough with hemoptysis Expected: 01/25/2025, Expires: 01/25/2026 Partial Thromboplastin Time, Activated (APTT) Lab Routine Cough with hemoptysis Expected: 01/25/2025, Expires: 01/25/2026 documented as of this encounter Goals Goal Patient Goal Type Associated Problems Recent Progress Patient-Stated? Author Quit using tobacco (cigarettes, smokeless, etc) Tobacco Use No Kolby Morin, KariD documented as of this encounter Visit Diagnoses Diagnosis Cough with hemoptysis- Primary Type 2 diabetes mellitus with hyperlipidemia (HCC) documented in this encounter Additional Health Concerns Assessment Noted Time PHQ-9 Depression Total Score: 21 025 1:51 PM EDT documented as of this encounter Care Teams Freelance Digital Project Manager Relationship Specialty Start Date End Date Fiorella Calvo ANP [address] [place] [address] [phone] PCP - General Family Medicine 11/04/20 Kolby Morin, KariD [address] [place] [address] Pharmacist Internal Medicine 08/19/23 documented as of this encounter
--- OUTSIDE RECORDS SUMMARY | 2025-01-25 13:16 | XMS_ITS | Encounter Summary ---
Author Organization [employer] Address 75 [facility] 7 [place] [address] Care Team Providers Care Infantry Unit Leader Name Role Phone Fiorella Calvo Primary Care Provider [phone] Kolby Morin PharmD Unavailable [phone] Reason for Visit * Reason Onset Date Comments Med Refill 12/08/2024 Encounter Details Date Type Department Care Team (Late st Contact Info) Description 12/08/2024 Refill [facility] MEDICINE 230 [place], [place] [phone] Fiorella Calvo ANP 230 [place] [address] Type 2 diabetes mellitus with hyperlipidemia (CMS/HCC) ([facility]/HCC); Diabetic polyneuropathy associated with type 2 diabetes [...] Description 01/28/2025 2:15 PM EST Office Visit [facility] [address] [place] [address] Fiorella Calvo ANP 230 [place] [address] 02/01/2025 9:30 AM EST Office Visit [facility] [address] [place] [address] Lorna Ragsdale FNP 230 [place] [address] documented as of this encounter Goals Goal [...] documented as of this encounter Care Teams Infantry Unit Leader Relationship Specialty Start Date End Date Fiorella Calvo ANP 230 [place] [address] PCP - General Family Medicine 11/04/20 Kolby Morin PharmD 230 [place] [address] Pharmacist Internal Medicine 08/19/23 documented as of this encounter
--- OUTSIDE RECORDS SUMMARY | 2025-01-25 13:16 | XMS_ITS | Encounter Summary ---
Author Organization [employer] Address 75 [facility] 7t [place] [address] Care Team Providers Care Cellophane Bag Machine Operator Name Role Phone Fiorella Calvo Primary Care Provider [phone] Kolby Morin PharmD Unavailable [phone] Encounter Details Date Type Department Care Team (Latest Contact Info) Description 01/21/2025 Travel Social History Tobacco Use Types Packs/Day Years [...] 01/28/2025 2:15 PM EST Office Visit [address] [address] Fiorella Calvo ANP [address] [place] [address] 02/01/2025 9:30 AM EST Office Visit [address] [address] Lorna Ragsdale FNP [address] [place] [address] documented as of this encounter Goals Goal Patient Goal Type Associated Problems Recent Progress Patient-Stated? Author Quit using tobacco (cigarettes, smokeless, etc) Tobacco Use No Kolby Morin, PharmD documented as of this encounter Visit Diagnoses Not on filedocumented in this encounter Additional Health Concerns Assessment Noted Time PHQ-9 Depression Total Score: 21 025 1:51 PM EDT documented as of this encounter Care Teams Cellophane Bag Machine Operator Relationship Specialty Start Date End Date Fiorella Calvo ANP [address] [place] [address] PCP - General Family Medicine 11/04/20 Kolby Morin, PharmD [address] [place] [address] Pharmacist Internal Medicine 08/19/23 documented as of this encounter
--- OUTSIDE RECORDS SUMMARY | 2025-01-25 13:16 | XMS_ITS | Encounter Summary ---
Author Organization [employer] Address 75 [facility] 7t [place] [address] Care Team Providers Care Electrical Line Worker Name Role Phone Fiorella Calvo Primary Care Provider [phone] Kolby Morin PharmD Unavailable [phone] Reason for Visit * Reason Onset Date Comments Med Refill 03/23/2024 Encounter Details Date Type Department Care Team (Late st Contact Info) Description 03/23/2024 Refill [facility] MED[facility]INE 230 [place], [place] [phone] Fiorella Calvo ANP 230 [place] [address] Type 2 diabetes mellitus with hyperlipidemia (CMS/HCC) [...] Description 01/28/2025 2:15 PM EST Office Visit [facility] [address] [place] [address] Fiorella Calvo ANP 230 [place] [address] 02/01/2025 9:30 AM EST Office Visit [facility] [address] [place] [address] Lorna Ragsdale FNP 230 [place] [address] documented as of this encounter Goals Goal [...] documented as of this encounter Care Teams Electrical Line Worker Relationship Specialty Start Date End Date Fiorella Calvo ANP 230 [place] [address] PCP - General Family Medicine 11/04/20 Kolby Morin PharmD 230 [place] [address] Pharmacist Internal Medicine 08/19/23 documented as of this encounter
--- OUTSIDE RECORDS SUMMARY | 2025-01-25 13:16 | XMS_ITS | Encounter Summary ---
Author Organization [employer] Address 75 [facility] 7t [place] [address] Care Team Providers Care Exhibition Carver Name Role Phone Fiorella Calvo Primary Care Provider [phone] Kolby Morin PharmD Unavailable [phone] Reason for Visit * Reason Onset Date Comments Med Refill 03/22/2024 Encounter Details Date Type Department Care Team (Late st Contact Info) Description 03/22/2024 Refill [facility] MEDICINE 230 [place], [place] [phone] Fiorella Calvo ANP 230 [place] [address] Type 2 diabetes mellitus with hyperlipidemia ([facility]/HCC) ([facility]) Social History Tobacco Use Types Packs/Day Years [...] Description 01/28/2025 2:15 PM EST Office Visit [facility] MEDICINE [address] [place] [address] Fiorella Calvo ANP 230 [place] [address] 02/01/2025 9:30 AM EST Office Visit [facility] MEDICINE [address] [place] [address] Lorna Ragsdale FNP 230 [place], [place] [phone] documented as of this encounter Goals Goal [...] documented as of this encounter Care Teams Exhibition Carver Relationship Specialty Start Date End Date Fiorella Calvo ANP 230 [place] [address] PCP - General Family Medicine 11/04/20 Kolby Morin PharmD 230 [place] [address] Pharmacist Internal Medicine 08/19/23 documented as of this encounter
--- OUTSIDE RECORDS SUMMARY | 2025-01-25 13:16 | XMS_ITS | Encounter Summary ---
Author Organization [employer] Address 75 [facility] 7t [place] [address] Care Team Providers Care Bench Technician Name Role Phone Fiorella Calvo Primary Care Provider [phone] Kolby Morin PharmD Unavailable [phone] Reason for Visit * Reason Comments Med Refill Encounter Details Date Type Department Care Team (Late st Contact Info) Description 01/21/2025 Refill [facility] MEDICINE 230 [place], [place] [phone] Fiorella Calvo ANP 230 [place] [address] Chronic pain of left knee; Osteoarthritis of [...] Description 01/28/2025 2:15 PM EST Office Visit [facility] MEDICINE [address] [place] [address] Fiorella Calvo ANP [address] [place] [address] 02/01/2025 9:30 AM EST Office Visit [facility] MED[facility]INE [address] [place] [address] Lorna Ragsdale FNP 230 [place] [address] documented as of this encounter Goals Goal [...] documented as of this encounter Care Teams Bench Technician Relationship Specialty Start Date End Date Fiorella Calvo ANP 230 [place] [address] PCP - General Family Medicine 11/04/20 Kolby Morin, Love 230 [place] [address] Pharmacist Internal Medicine 08/19/23 documented as of this encounter
--- OUTSIDE RECORDS SUMMARY | 2025-01-25 13:16 | XMS_ITS | Encounter Summary ---
Author Organization [employer] Address 75 [facility] 7 [place] [address] Care Team Providers Care Game Engineer Name Role Phone Fiorella Calvo Primary Care Provider [phone] Kolby Morin PharmD Unavailable [phone] Reason for Visit * Reason Onset Date Comments PT1 04/23/2024 Encounter Details Date Type Department Care Team (Late st Contact Info) Description 04/23/2024 Telephone [facility] MEDICINE 230 [place], [place] [phone] Fiorella Calvo ANP 230 [place], [place] [phone] PT1 Social History Tobacco Use Types Packs/Day [...] Y/N: Yes Provider name or facility name: [address] [place] [address] Escort needed: Y/N: No Do you have a wheelchair: Y/N: No If yes- Manual or electric: N/A Visits: (2x monthly) documented in this encounter Plan of Treatment Upcoming Encounters Date Type Department Care Team (Late st Contact Info) Description 01/28/2025 2:15 PM EST Office Visit [facility] MED[facility]INE 230 [place] [address] Fiorella Calvo ANP 230 [place] [address] 02/01/2025 9:30 AM EST Office Visit [facility] MED[facility]INE 230 [place] [address] Lorna Ragsdale FNP 230 [place] [address] documented as of this encounter Goals Goal Patient Goal Type Associated Problems Recent Progress Patient-Stated? Author Quit using tobacco (cigarettes, smokeless, etc) Tobacco Use No Kolby Morin, PharmD documented as of this encounter Visit Diagnoses Not on filedocumented in this encounter Additional Health Concerns Assessment Noted Time PHQ-9 Depression Total Score: 26 025 11:43 AM EST documented as of this encounter Care Teams Game Engineer Relationship Specialty Start Date End Date Fiorella Calvo ANP [address] [place] [address] PCP - General Family Medicine 11/04/20 Kolby Morin, PharmD [address] [place] [address] Pharmacist Internal Medicine 08/19/23 documented as of this encounter
--- OUTSIDE RECORDS SUMMARY | 2025-01-25 13:16 | XMS_ITS | Encounter Summary ---
Author Organization [employer] Address 75 [facility] 7t [place] [address] Care Team Providers Care Hotel And Dining Room Cashier Name Role Phone Fiorella Calvo Primary Care Provider Kolby Morin PharmD Unavailable [phone] Reason for Visit * Reason Onset Date Comments Med Refill 01/21/2025 Encounter Details Date Type Department Care Team (Late st Contact Info) Description 01/21/2025 Refill [facility] MED[facility]INE 230 [place] [address] Fiorella Calvo ANP 230 [place] [address] Chronic pain of left knee; Osteoarthritis of [...] 2:15 PM EST Office Visit [facility] [address] [place] [address] Fiorella Calvo ANP 230 [place] [address] 02/01/2025 9:30 AM EST Office Visit [facility] [address] [place] [phone] Lorna Ragsdale FNP 230 [place] [address] documented as of this encounter Goals Goal [...] documented as of this encounter Care Teams Hotel And Dining Room Cashier Relationship Specialty Start Date End Date Fiorella Calvo ANP 230 [place] [address] PCP - General Family Medicine 11/04/20 Kolby Morin, Love 230 [place] [address] Pharmacist Internal Medicine 08/19/23 documented as of this encounter
--- OUTSIDE RECORDS SUMMARY | 2025-01-25 13:16 | XMS_ITS | Encounter Summary ---
Author Organization [facility] Address 75 [facility] 7t [place] [address] Care Team Providers Care Alterations Workroom Clerk Name Role Phone Fiorella Calvo Primary Care Provider [phone] Kolby Morin PharmD Unavailable [phone] Reason for Visit * Reason Onset Date Comments Call Back Request 08/02/2023 Encounter Details Date Type Department Care Team (Late st Contact Info) Description 08/02/2023 Telephone [facility] MEDICINE 230 [place], [place] [phone] Fiorella Calvo ANP 230 [place] [address] Call Back Request Social History Tobacco Use [...] stated was advised to return call however sports writer does not see anything documented on patients chart documented in this encounter Plan of Treatment Upcoming Encounters Date Type Department Care Team (Late st Contact Info) Description 01/28/2025 2:15 PM EST Office Visit [facility] 230 [place] [address] Fiorella Calvo ANP 230 [place] [address] 02/01/2025 9:30 AM EST Office Visit [address] [address] Lorna Ragsdale FNP 230 [place], [place] [phone] documented as of this encounter Visit Diagnoses Not on filedocumented in this encounter Additional Health Concerns Assessment Noted Time PHQ-9 Depression Total Score: 26 024 2:50 PM EDT documented as of this encounter Care Teams Alterations Workroom Clerk Relationship Specialty Start Date End Date Fiorella Calvo ANP [address] [place] [address] [phone] PCP - General Family Medicine 11/04/20 Kolby Morin, Love [address] [place] [address] [phone] Pharmacist Internal Medicine 08/19/23 documented as of this encounter
--- OUTSIDE RECORDS SUMMARY | 2025-01-25 13:16 | XMS_ITS | Encounter Summary ---
Author Organization [employer] [facility] Address 75 [facility] 7t [place] [address] Care Team Providers Care Gaming Table Operator Name Role Phone Fiorella Calvo Primary Care Provider [phone] Kolby Morin PharmD Unavailable [phone] Reason for Visit * Reason Onset Date Comments Med Refill 04/16/2024 Encounter Details Date Type Department Care Team (Late st Contact Info) Description 04/16/2024 Refill [facility] 230 [place], [place] [phone] Fiorella Calvo ANP 230 [place] [address] Type 2 diabetes mellitus with hyperlipidemia (CMS/HCC) ([facility]) (Primary Dx) Social History Tobacco Use Types [...] Description 01/28/2025 2:15 PM EST Office Visit [address] [address] Fiorella Calvo ANP 230 [place] [address] 02/01/2025 9:30 AM EST Office Visit [address] [address] Lorna Ragsdale FNP 230 [place] [address] documented as of this encounter Goals Goal [...] documented as of this encounter Care Teams Gaming Table Operator Relationship Specialty Start Date End Date Fiorella Calvo ANP [address] [place] [address] PCP - General Family Medicine 11/04/20 Kolby Morin, PharmD [address] [place] [address] Pharmacist Internal Medicine 08/19/23 documented as of this encounter
--- OUTSIDE RECORDS SUMMARY | 2025-01-25 13:17 | XMS_ITS | Encounter Summary ---
Author Organization [employer] Address 75 [facility] 7t [place] [address] Care Team Providers Care Engineering Systems Analyst Name Role Phone Fiorella Calvo Primary Care Provider [phone] Kolby Morin PharmD Unavailable [phone] Reason for Visit * Reason Onset Date Comments Med Refill 11/17/2024 Encounter Details Date Type Department Care Team (Late st Contact Info) Description 11/17/2024 Refill [facility] MEDICINE 230 [place], [place] [phone] Fiorella Calvo ANP 230 [place] [address] Type 2 diabetes mellitus with obesity ([facility]) ([facility]) Social History Tobacco Use Types Packs/Day [...] 2:15 PM EST Office Visit [facility] MEDICINE [address] [place] [address] Fiorella Calvo ANP 230 [place] [address] 02/01/2025 9:30 AM EST Office Visit [facility] MEDICINE [address] [place] [address] Lorna Ragsdale FNP 230 [place], [place] [phone] documented as of this encounter Goals Goal [...] documented as of this encounter Care Teams Engineering Systems Analyst Relationship Specialty Start Date End Date Fiorella Calvo ANP 230 [place] [address] PCP - General Family Medicine 11/04/20 Kolby Morin PharmD 230 [place] [address] Pharmacist Internal Medicine 08/19/23 documented as of this encounter
--- OUTSIDE RECORDS SUMMARY | 2025-01-25 13:17 | XMS_ITS | Encounter Summary ---
Author Organization [employer] [facility] Address [address] [place] [address] 7 [place] [address] Care Team Providers Care Cutter Operator Tile Name Role Phone Fiorella Calvo Primary Care Provider [phone] Kolby Morin PharmD Unavailable [phone] Reason for Visit * Reason Onset Date Comments Med Refill 05/15/2023 Encounter Details Date Type Department Care Team (Late st Contact Info) Description 05/15/2023 Refill [facility] [address] [place] [address] Fiorella Calvo ANP 230 [place], [place] [phone] Allergic rhinitis, unspecified seasonality, unspecified trigger Social [...] 01/28/2025 2:15 PM EST Office Visit [address] [address] Fiorella Calvo ANP [address] [place] [address] 02/01/2025 9:30 AM EST Office Visit [address] [place] [address] Lorna Ragsdale FNP 230 [place], [place] [phone] documented as of this encounter Visit Diagnoses Diagnosis Allergic rhinitis, unspecified seasonality, unspecified trigger documented in this encounter Care Teams Cutter Operator Tile Relationship Specialty Start Date End Date Fiorella Calvo ANP 230 [place], [place] [phone] PCP - General Family Medicine 11/04/20 Kolby Morin, Love 230 [place], [place] [phone] Pharmacist Internal Medicine 08/19/23 documented as of this encounter
--- OUTSIDE RECORDS SUMMARY | 2025-01-25 13:17 | XMS_ITS | Encounter Summary ---
Author Organization [employer] [facility] Address [address] [place] [address] 7 [place] [address] Care Team Providers Care Wood Cutter Name Role Phone Fiorella Calvo Primary Care Provider [phone] Kolby Morin PharmD Unavailable [phone] Reason for Visit * Reason Comments Med Change Request Encounter Details Date Type Department Care Team (Late st Contact Info) Description 04/14/2023 Refill [facility] MEDICINE [address] [place] [address] Fiorella Calvo ANP [address] [place] [address] Chronic left-sided low back pain with left-sided [...] Description 01/28/2025 2:15 PM EST Office Visit [facility] MEDICINE [address] [place] [address] Fiorella Calvo ANP [address] [place] [address] 02/01/2025 9:30 AM EST Office Visit [facility] MEDICINE 230 [place] [address] Lorna Ragsdale FNP 230 [place], [place] [phone] documented as of this encounter Visit Diagnoses Diagnosis Chronic left-sided low back pain with left-sided sciatica Diabetic polyneuropathy associated with type 2 diabetes mellitus (HCC) Anxiety Anxiety state, unspecified documented in this encounter Care Teams Wood Cutter Relationship Specialty Start Date End Date Fiorella Calvo ANP 230 [place] [address] PCP - General Family Medicine 11/04/20 Kolby Morin, KariD [address] [place] [address] Pharmacist Internal Medicine 08/19/23 documented as of this encounter
--- OUTSIDE RECORDS SUMMARY | 2025-01-25 13:17 | XMS_ITS | Encounter Summary ---
Author Organization [employer] Address 75 [facility] 7t [place] [address] Care Team Providers Care Inspector Optical Instrument Name Role Phone Fiorella Calvo Primary Care Provider [phone] Kolby Morin PharmD Unavailable [phone] Reason for Visit * Reason Comments Med Refill Encounter Details Date Type Department Care Team (Late st Contact Info) Description 10/16/2024 Refill [facility] MEDICINE 230 [place], [place] [phone] Name, MD Jacob 230 [place] [address] Chronic pain of left knee; Osteoarthritis of [...] 01/28/2025 2:15 PM EST Office Visit [facility] MEDICINE [address] [place] [address] Fiorella Calvo ANP [address] [place] [address] 02/01/2025 9:30 AM EST Office Visit [address] [address] Lorna Ragsdale FNP 230 [place] [address] documented as of this encounter Goals Goal [...] documented as of this encounter Care Teams Inspector Optical Instrument Relationship Specialty Start Date End Date Fiorella Calvo ANP 230 [place] [address] PCP - General Family Medicine 11/04/20 Kolby Morin, Love 230 [place] [address] Pharmacist Internal Medicine 08/19/23 documented as of this encounter
--- OUTSIDE RECORDS SUMMARY | 2025-01-25 13:17 | XMS_ITS | Encounter Summary ---
Author Organization [employer] [facility] Address [address] [place] [address] 7 [place] [address] Care Team Providers Care Emergency Technician Name Role Phone Fiorella Calvo Primary Care Provider [phone] Kolby Morin PharmD Unavailable [phone] Reason for Visit * Reason Comments Med Refill Encounter Details Date Type Department Care Team (Late st Contact Info) Description 05/21/2023 Refill [facility] [address] [place] [address] Fiorella Calvo ANP [address] [place] [address] Social History Tobacco Use Types Packs/Day Years [...] 01/28/2025 2:15 PM EST Office Visit [address] [address] Fiorella Calvo ANP [address] [place] [address] 02/01/2025 9:30 AM EST Office Visit [facility] 230 [place] [address] Lorna Ragsdlae FNP 230 [place], [place] [phone] documented as of this encounter Visit Diagnoses Not on filedocumented in this encounter Care Teams Emergency Technician Relationship Specialty Start Date End Date Fiorella Calvo ANP 230 [place] [address] PCP - General Family Medicine 11/04/20 Kolby Morin, Love 230 [place], [place] [phone] Pharmacist Internal Medicine 08/19/23 documented as of this encounter
--- OUTSIDE RECORDS SUMMARY | 2025-01-25 13:17 | XMS_ITS | Encounter Summary ---
Author Organization [employer] Address [address] [facility] 7t [place] [address] Care Team Providers Care Woodworker Helper Name Role Phone Fiorella Calvo Primary Care Provider [phone] Kolby Morin PharmD Unavailable [phone] Reason for Visit * Reason Comments Med Refill Encounter Details Date Type Department Care Team (Late st Contact Info) Description 11/06/2024 Refill [facility] 230 [place], [place] [phone] Fiorella Calvo ANP 230 [place] [address] Chronic pain of left knee; Osteoarthritis of [...] 2:15 PM EST Office Visit [facility] [address] [place] [address] Fiorella Calvo ANP [address] [place] [address] 02/01/2025 9:30 AM EST Office Visit [facility] [address] [place] [address] Lorna Ragsdale FNP 230 [place] [address] documented as of this encounter Goals Goal [...] documented as of this encounter Care Teams Woodworker Helper Relationship Specialty Start Date End Date Fiorella Calvo ANP 230 [place] [address] PCP - General Family Medicine 11/04/20 Kolby Morin, Love 230 [place] [address] Pharmacist Internal Medicine 08/19/23 documented as of this encounter
--- OUTSIDE RECORDS SUMMARY | 2025-01-25 13:17 | XMS_ITS | Encounter Summary ---
Author Organization [facility] Address [address] [place] [address] 7 [place] [address] Care Team Providers Care Machinist Mate Name Role Phone Fiorella Calvo Primary Care Provider [phone] Kolby Morin PharmD Unavailable [phone] Reason for Visit * Reason Onset Date Comments Med Refill 05/17/2023 Encounter Details Date Type Department Care Team (Late st Contact Info) Description 05/17/2023 Refill [facility] [address] [place] [address] [phone] Fiorella Calvo ANP 230 [place], [place] [phone] Diabetes mellitus type 2 in obese ([facility]) Social History Tobacco [...] 01/28/2025 2:15 PM EST Office Visit [facility] 230 [place], [place] [phone] Fiorella Calvo ANP 230 [place], [place] [phone] 02/01/2025 9:30 AM EST Office Visit [facility] 230 [place] [address] Lorna Ragsdale FNP 230 [place], [place] [phone] documented as of this encounter Visit Diagnoses Diagnosis Diabetes mellitus type 2 in obese Type II or unspecified type diabetes mellitus without mention of complication, not stated as uncontrolled documented in this encounter Care Teams Machinist Mate Relationship Specialty Start Date End Date Fiorella Calvo ANP [address] [place] [address] [phone] PCP - General Family Medicine 11/04/20 Kolby Morin, Love [address] [place] [address] Pharmacist Internal Medicine 08/19/23 documented as of this encounter
--- OUTSIDE RECORDS SUMMARY | 2025-01-25 13:17 | XMS_ITS | Encounter Summary ---
Author Organization [employer] Address 75 [facility] 7t [place] [address] Care Team Providers Care Health And Wellness Advisor Name Role Phone Fiorella Calvo Primary Care Provider [phone] Kolby Morin PharmD Unavailable [phone] Reason for Visit * Reason Comments Med Refill Encounter Details Date Type Department Care Team (Late st Contact Info) Description 10/26/2024 Refill [facility] 230 [place], [place] [phone] Name, MD Jacob 230 [place] [address] Chronic pain of left knee; Osteoarthritis of [...] 01/28/2025 2:15 PM EST Office Visit [facility] [address] [place] [address] Fiorella Calvo ANP [address] [place] [address] 02/01/2025 9:30 AM EST Office Visit [facility] [address] [place] [address] Lorna Ragsdale FNP 230 [place] [address] documented as of this encounter Goals Goal [...] documented as of this encounter Care Teams Health And Wellness Advisor Relationship Specialty Start Date End Date Fiorella Calvo ANP 230 [place] [address] PCP - General Family Medicine 11/04/20 Kolby Morin, Love 230 [place] [address] Pharmacist Internal Medicine 08/19/23 documented as of this encounter
--- OUTSIDE RECORDS SUMMARY | 2025-01-25 13:17 | XMS_ITS | Encounter Summary ---
Author Organization [employer] Address 75 [facility] 7t [place] [address] Care Team Providers Care Revenue Integrity Analyst Name Role Phone Fiorella Calvo Primary Care Provider [phone] Kolby Morin PharmD Unavailable [phone] Reason for Visit * Reason Onset Date Comments Med Refill 11/06/2024 Encounter Details Date Type Department Care Team (Late st Contact Info) Description 11/06/2024 Telephone [facility] 230 [place], [place] [phone] Fiorella Calvo ANP 230 [place], [place] [phone] Med Refill Social History Tobacco Use Types [...] 50 MG tablet To be sent to: [facility]/pharmacy #[id number] - [place], [place] - [address] [facility] documented in this encounter Plan of Treatment Upcoming Encounters Date Type Department Care Team (Late st Contact Info) Description 01/28/2025 2:15 PM EST Office Visit [facility] 230 [place] [address] Fiorella Calvo ANP 230 [place] [address] 02/01/2025 9:30 AM EST Office Visit [facility] 230 [place] [address] Lorna Ragsdale FNP 230 [place] [address] documented as of this encounter Goals Goal [...] as of this encounter Care Teams Revenue Integrity Analyst Relationship Specialty Start Date End Date Fiorella Calvo ANP [address] [place] [address] PCP - General Family Medicine 11/04/20 Kolby Morin, PharmD [address] [place] [address] Pharmacist Internal Medicine 08/19/23 documented as of this encounter
--- OUTSIDE RECORDS SUMMARY | 2025-01-25 13:17 | XMS_ITS | Encounter Summary ---
Author Organization [email or web address] Address 75 [facility] 7 [place] [address] Care Team Providers Care Alterations Workroom Clerk Name Role Phone Fiorella Calvo Primary Care Provider [phone] Kolby Morin PharmD Unavailable [phone] Reason for Visit * Reason Onset Date Comments Med Refill 11/30/2024 Encounter Details Date Type Department Care Team (Late st Contact Info) Description 11/30/2024 Refill [facility] 230 [place], [place] [phone] Fiorella Calvo ANP 230 [place] [address] Type 2 diabetes mellitus with hyperlipidemia (CMS/HCC) ([facility]/HCC); Diabetic polyneuropathy associated with type [...] 2:15 PM EST Office Visit [facility] [address] [place] [address] Fiorella Calvo ANP 230 [place] [address] 02/01/2025 9:30 AM EST Office Visit [facility] [address] [place] [address] Lorna Ragsdale FNP 230 [place] [address] documented as of this encounter Goals Goal [...] Date End Date Fiorella Calvo ANP 230 [place] [address] PCP - General Family Medicine 11/04/20 Kolby Morin PharmD 230 [place] [address] Pharmacist Internal Medicine 08/19/23 documented as of this encounter
--- OUTSIDE RECORDS SUMMARY | 2025-01-25 13:17 | XMS_ITS | Encounter Summary ---
Author Organization [employer] Address 75 [facility] 7t [place] [address] Care Team Providers Care Presentation Manager Name Role Phone Fiorella Calvo Primary Care Provider [phone] Kolby Morin PharmD Unavailable Reason for Visit * Reason Onset Date Comments Med Refill 11/13/2024 Encounter Details Date Type Department Care Team (Late st Contact Info) Description 11/13/2024 Refill [facility] 230 [place], [place] [phone] Fiorella Calvo ANP 230 [place] [address] Type 2 diabetes mellitus with obesity ([facility]) ([facility]) Social History Tobacco Use [...] 01/28/2025 2:15 PM EST Office Visit [facility] [address] [place] [address] Fiorella Calvo ANP 230 [place] [address] 02/01/2025 9:30 AM EST Office Visit [facility] [address] [place] [address] Lorna Ragsdale FNP 230 [place], [place] [phone] documented as of this encounter Goals Goal [...] documented as of this encounter Care Teams Presentation Manager Relationship Specialty Start Date End Date Fiorella Calvo ANP 230 [place] [address] PCP - General Family Medicine 11/04/20 Kolby Morin PharmD 230 [place] [address] Pharmacist Internal Medicine 08/19/23 documented as of this encounter
--- OUTSIDE RECORDS SUMMARY | 2025-01-25 13:17 | XMS_ITS | Encounter Summary ---
Author Organization [email or web address] Address [address] [facility] 7 [place] [address] Care Team Providers Care Quarter Section Ironer Name Role Phone Fiorella Calvo Primary Care Provider [phone] Kolby Morin PharmD Unavailable Reason for Visit * Reason Onset Date Comments Med Refill 11/25/2024 Encounter Details Date Type Department Care Team (Late st Contact Info) Description 11/25/2024 Refill [facility] 230 [place], [place] [phone] Fiorella Calvo ANP 230 [place] [address] Type 2 diabetes mellitus with hyperlipidemia (CMS/HCC) ([facility]); Diabetic polyneuropathy associated with type 2 diabetes [...] Description 01/28/2025 2:15 PM EST Office Visit [facility] [address] [place] [address] Fiorella Calvo ANP 230 [place] [address] 02/01/2025 9:30 AM EST Office Visit [facility] [address] [place] [address] Lorna Ragsdale FNP 230 [place] [address] documented as of this encounter Goals Goal [...] documented as of this encounter Care Teams Quarter Section Ironer Relationship Specialty Start Date End Date Fiorella Calvo ANP 230 [place] [address] PCP - General Family Medicine 11/04/20 Kolby Morin PharmD 230 [place] [address] Pharmacist Internal Medicine 08/19/23 documented as of this encounter
--- OUTSIDE RECORDS SUMMARY | 2025-01-25 13:17 | XMS_ITS | Encounter Summary ---
Author Organization [facility] [facility] Address [address] [place] [address] 7 [place] [address] Care Team Providers Care Heavy Forger Helper Name Role Phone Fiorella Calvo Primary Care Provider [phone] Kolby Morin PharmD Unavailable [phone] Reason for Visit * Reason Onset Date Comments Follow Up Extended 04/24/23 04/22/2023 Encounter Details Date Type Department Care Team ([facility] Contact Info) Description 04/22/2023 Telephone [facility] 230 [place], [place] [phone] Fiorella Calvo ANP 230 [place] [address] Follow Up Extended 04/24/23 Social History Tobacco [...] wanting to reschedule follow ep ext 04/24/23. Journeyman Power Plant Operator did not see anything available. Please contact pt at [phone]. documented in this encounter Plan of Treatment Upcoming Encounters Date Type Department Care Team (Late Contact Info) Description 01/28/2025 2:15 PM EST Office Visit [address] [address] Fiorella Calvo ANP [address] [place] [address] 02/01/2025 9:30 AM EST Office Visit [address] [phone] Lorna Ragsdale FNP [address] [place] [address] [phone] documented as of this encounter Visit Diagnoses Not on filedocumented in this encounter Care Teams Heavy Forger Helper Relationship Specialty Start Date End Date Fiorella Calvo ANP [address] [place] [address] [phone] PCP - General Family Medicine 11/04/20 Kolby Morin, PharmD [address] [place] [address] [phone] Pharmacist Internal Medicine 08/19/23 documented as of this encounter
--- OUTSIDE RECORDS SUMMARY | 2025-01-25 13:17 | XMS_ITS | Encounter Summary ---
Author Organization [employer] Address 75 [facility] 7t [place] [address] Care Team Providers Care Asphalt Worker Name Role Phone Fiorella Calvo Primary Care Provider [phone] Kolby Morin PharmD Unavailable [phone] Reason for Visit * Reason Comments Med Refill Encounter Details Date Type Department Care Team (Late st Contact Info) Description 10/26/2024 Refill [facility] 230 [place], [place] [phone] Name, MD Jacob 230 [place] [address] Chronic pain of left knee; Osteoarthritis of [...] with others, in a hotel, in a correction, living outside on the street, on a [...] Description 01/28/2025 2:15 PM EST Office Visit [facility] [address] [place] [address] Fiorella Calvo ANP [address] [place] [address] 02/01/2025 9:30 AM EST Office Visit [facility] [address] [place] [address] Lorna Ragsdale FNP 230 [place] [address] documented as of this encounter Goals Goal [...] documented as of this encounter Care Teams Asphalt Worker Relationship Specialty Start Date End Date Fiorella Calvo ANP 230 [place] [address] PCP - General Family Medicine 11/04/20 Kolby Morin, Love 230 [place] [address] Pharmacist Internal Medicine 08/19/23 documented as of this encounter
[2025-01-25 13:25] LABS: MANUAL DIFF FLAG NO
[2025-01-25 13:38] LABS: INTERNATIONAL NORM RATIO 1.0 (0.9-1.1); Prothrombin Time 12.6 SEC (11.2-13.5)
[2025-01-25 13:40] LABS: Partial Thromboplastin Time 28.5 SEC (26.7-34.1)
[2025-01-25 13:48] LABS: Hematocrit 42.2 % (37.0-47.0); Hemoglobin 13.3 g/dl (12.0-16.0); Imm Gran Abs Auto 0.02 X10*3/uL (0.00-0.03); Imm Gran Pct Auto 0.4 % (0.0-0.4); Lymphocytes Absolute Auto 1.6 X10*3/uL (1.2-4.9); Mean Corpuscular HGB Conc 31.5 g/dl (31.0-35.0); Mean Corpuscular Hemoglobin 23.5 pg (27.0-33.0); Mean Corpuscular Volume 74.6 fL (80.0-98.0); NRBC Abs Auto 0.000 X10*3/uL (0.0-0.012); NRBC Pct Auto 0.0 /100WBC (0.0-0.2); Platelet Count 174 X10*3/uL (160-400); Red Blood Count 5.66 X10*6/uL (4.20-5.50); White Blood Count 5.6 X10*3/uL (4.8-10.8)
[2025-01-25 14:03] LABS: Anion Gap 12 (12-20); Blood Urea Nitrogen 6 mg/dL (9-16); Calcium 9.2 mg/dL (8.4-10.2); Carbon Dioxide 24 mmol/L (22-29); Chloride 104 mmol/L (96-108); Estimated Glomerular Filt Rate > 60; Potassium 4.1 mmol/L (3.3-5.1); Sodium 136 mmol/L (135-145)
[2025-01-25 14:13] LABS: Alanine Aminotransferase 15 U/L (0-31); Albumin Level 4.3 g/dL (3.5-5.0); Alkaline Phosphatase 118 U/L (39-117); Anion Gap 11 (12-20); Aspartate Amino Transferase 17 U/L (5-31); Blood Urea Nitrogen 6 mg/dL (9-16); Calcium 9.2 mg/dL (8.4-10.2); Carbon Dioxide 25 mmol/L (22-29); Chloride 104 mmol/L (96-108); Estimated Glomerular Filt Rate > 60; Potassium 4.1 mmol/L (3.3-5.1); Sodium 136 mmol/L (135-145); Total Protein 7.4 g/dL (6.5-8.0)
[2025-01-25 14:32] LABS: Folate 11.1 ng/mL (> or = 4.0); Vitamin B12 400 pg/mL (200-900)
[2025-01-28 11:44] LABS: TS Negative Control Passed; TS Panel A 0; TS Panel B 7; TS Positive Control Passed
[2025-01-28 12:53] LABS: TSpotTB Borderline (Negative)
== END 2025-01-25 11:00 | disposition home or self-care (01) ==
LOC: HO.HHCL 10:59
PROVIDERS: Nurse Practitioner Family; Optometrist; PCP Nurse Practitioner Primary Care; Visit Provider Nurse Practitioner Primary Care
DX: Z11.1 Encounter for screening for respiratory tuberculosis (principal); E11.42 Type 2 diabetes mellitus with diabetic polyneuropathy; N92.1 Excessive and frequent menstruation with irregular cycle; R04.2 Hemoptysis; H47.20 Unspecified optic atrophy
CPT/HCPCS: 36415; 80048; 80053; 82607; 82746; 83036; 83921; 84443; 85025; 85610; 85730; 86481

== ENCOUNTER 2025-02-05 13:21 | Outpatient (AMB) | payer MEDICAID, SELFPAY ==
--- OUTSIDE RECORDS SUMMARY | 2025-02-01 09:30 | XMS_ITS | Encounter Summary ---
Author Organization [facility] Address [address] 7 [place] [address] Care Team Providers Care Sail Cutter Name Role Phone Fiorella Calvo Primary Care Provider [phone] Kolby Morin PharmD Unavailable [phone] Reason for Referral * Consultation (Routine) - Authorized Specialty Diagnoses / Procedures Referred By Conttadeo t Referred To Contact Podiatry Diagnoses Uncontrolled type 2 diabetes mellitus with hyperglycemia (HCC) Fissure in skin of both feet Lorna Ragsdale FNP [address] [place] [address] Phone: tel: fax: Eyad Jordan DPM [address] [address] Phone: tel: fax: Referral ID Status Reason Start Date Expiration Date Visits Requested Visits Authorized [id number] Authorized Specialty Services Required 5 02/03/2026 6 6 Encounter Details Date Type Department Care Team (Latest Contact Info) Description 02/01/2025 9:30 AM EST Office Visit [facility] [address] [place] [address] Lorna Ragsdale FNP [address] [place] [address] Encounter for physical examination (Primary Dx); Uncontrolled type 2 diabetes mellitus with hyperglycemia (HCC); Tobacco use disorder; Fissure in skin of both feet; Elevated blood pressure reading in office with diagnosis of hypertension Social History Tobacco Use Types Packs/Day Years Used Date Smoking Tobacco: Every Day Cigarettes 1 31.9 Started: 1993 Passive Smoke Exposure: Current Smokeless Tobacco: Current Tobacco Cessation:Ready to Q uit: Not Asked; [...] AM EDT documented as of this encounter Last Filed Vital Signs Vital Sign Reading Time Taken Comments Blood Pressure 150/88 02/01/2025 9:23 AM EST Pulse 88 02/01/2025 9:23 AM EST Temperature 36.7 C (98 F) 02/01/2025 9:23 AM EST Respiratory Rate 16 02/01/2025 9:23 AM EST Oxygen Saturation 99% 02/01/2025 9:23 AM EST Inhaled Oxygen Concentration - - Weight 84.6 kg (186 lb 8 oz) 02/01/2025 9:23 AM EST Height 161 cm (5' 3.39 ) 02/01/2025 9:23 AM EST Body Mass Index 32.64 02/01/2025 9:23 AM EST documented in this encounter Progress Notes * ANASTASIA Wren - 02/01/2025 9:30 AM EST Subjective: Teena Spears is a 44 y.o. female who presents to the office for a physical exam. Interim history: Hypertension - History of high blood pressure - Takes antihypertensive medication daily, but forgot to take it on the morning of the visit - Monitors blood pressure at home with a machine Diabetes Mellitus - History of diabetes with reported poor control - Uses insulin injections - Monitors blood glucose at home, reports fluctuating high and low readings Tobacco Use - Smokes approximately one pack of cigarettes per day - Expressed interest in quitting due to findings in the lungs Foot Pain and Skin Changes - Reports cracked skin on soles of feet causing pain when walking - Reports numbness, tingling, and cramping in both feet and toes when walking, requiring her to stop for relief - Difficulty climbing stairs - History of arthritis in the left knee - Surgery for left knee was postponed due to diabetes Mental Health - History of suicide attempt(s) - Under care of psychiatrist and currently taking psychiatric medication - Denies current suicidal ideation or thoughts of harming other Problem List[1] Surgical History[2] Family History[3] Social History Living situation: Lives in apt in housing alone Safety:No fire arms in the home. Working smoke and fire alarm. Reports home and environment safe Employment/Education: Unemployed Diet/exercise: Eats variety of food including fruits and vegetables. No routine exercise Substance use: Denies Sexual activity: Yes, uses condom. History tubal ligation Dental: Home dental in [place] Vision: Wears prescription glasses Last menstrual period: 01/25/2025 Children: 3 Mammogram: To schedule appointment Colonoscopy: Referral to GI Mental health: Denies SI, harming self or others. Under psych care for history of SI Allergies[4] Current Medications[5] Health Maintenance Topic Date Due Colorectal Cancer Screening Never done Family Planning (PISQ) Never done Hepatitis B Vaccines (1 of 3 - 19+ 3-dose series) Never done Cervical Cancer Screening Never done Diagnostic Breast Imaging 06/23/2024 Mammogram 06/23/2024 SDOH Screening 02/27/2025 Alcohol/Substance Use Screening 04/17/2025 Diabetes: Hemoglobin A1C 04/27/2025 Influenza Vaccine (1) 09/14/2025 (Originally 11/16/2024) DTaP/Tdap/Td Vaccines (1 - Tdap) 02/01/2026 (Originally 1997) Pneumococcal Vaccine: Pediatrics (0 to 5 Years) and At-Risk Patients (6 to 49) Years (2 of 2 - PCV)02/01/2026 (Originally 11/29/2018) COVID-19 Vaccine (2 - 2024- season) 2026 (Originally 11/16/2024) Lipid Panel 06/11/2025 Depression Monitoring 07/13/2025 Disability Screening 08/05/2025 Tobacco Screening 02/01/2026 Diabetes: Foot Exam 02/01/2026 Eye Exam 01/01/2027 Zoster Vaccines (1 of 2) 2028 RSV Patients and Patients Aged 60 years or older (1 - 1-dose 75+ series) 2053 HIV Screening Completed Hepatitis C Screening Completed RSV under 20 months Aged Out HIB Vaccines Aged Out IPV Vaccines Aged Out Hepatitis A Vaccines Aged Out Meningococcal Vaccine Aged Out Rotavirus Vaccines Aged Out HPV Vaccines Aged Out Meningococcal B Vaccine Aged Out Review of Systems Constitutional: Negative for activity change, appetite change, fatigue and fever. HENT: Negative for congestion, ear discharge, ear pain, rhinorrhea and sore throat. Eyes: Negative for discharge, redness and itching. Respiratory: Negative for cough, shortness of breath and wheezing. Cardiovascular: Negative for chest pain. Gastrointestinal: Negative for abdominal pain, blood in stool, constipation, diarrhea, nausea and vomiting. Endocrine: Negative for polydipsia and polyuria. Genitourinary: Negative for decreased urine volume, difficulty urinating, dyspareunia, hematuria and menstrual problem. Musculoskeletal: Negative for arthralgias, gait problem and joint swelling. Skin: Negative for rash. Allergic/Immunologic: Negative for environmental allergies and food allergies. Neurological: Negative for dizziness, weakness and headaches. Hematological: Does not bruise/bleed easily. Psychiatric/Behavioral: Negative for behavioral problems, sleep disturbance and suicidal ideas. Vitals: 02/01/25 0923 BP: (!) 150/88 BP Location: Left arm Patient Position: Sitting BP Cuff Size: Adult Pulse: 88 Resp: 16 Temp: 98 ??F (36.7 ??C) TempSrc: Oral SpO2: 99% Weight: 186 lb 8 oz (84.6 kg) Height: 5' 3.39 (1.61 m) - Ecnah-ge-vxxw glucose this morning 278 Physical Exam Constitutional: Appearance: Normal appearance. HENT: Head: Normocephalic and atraumatic. Right Ear: Tympanic membrane, ear canal and external ear normal. Left Ear: Tympanic membrane, ear canal and external ear normal. Nose: Nose normal. No congestion. Mouth/Throat: Mouth: Mucous membranes are moist. Pharynx: Oropharynx is clear. Eyes: Extraocular Movements: Extraocular movements intact. Pupils: Pupils are equal, round, and reactive to light. Cardiovascular: Rate and Rhythm: Normal rate and regular rhythm. Pulses: Normal pulses. Heart sounds: Normal heart sounds. No murmur heard. Pulmonary: Effort: Pulmonary effort is normal. Breath sounds: Normal breath sounds. No wheezing. Chest: Chest wall: No tenderness. Abdominal: General: Abdomen is flat. Bowel sounds are normal. Palpations: Abdomen is soft. Tenderness: There is no guarding or rebound. Musculoskeletal: General: Normal range of motion. Cervical back: Normal range of motion. Right lower leg: No edema. Left lower leg: No edema. Feet: Right foot: Protective Sensation: 5 sites tested. 3 sites sensed. Skin integrity: Callus and fissure present. No skin breakdown. Toenail Condition: Right toenails are abnormally thick and long. Fungal disease present. Left foot: Protective Sensation: 5 sites tested. 3 sites sensed. Skin integrity: Callus and fissure present. No skin breakdown. Toenail Condition: Left toenails are abnormally thick and long. Fungal disease present. Comments: Bilateral painful fissures on both heels Skin: General: Skin is warm and dry. Capillary Refill: Capillary refill takes less than 2 seconds. Findings: No bruising. Neurological: General: No focal deficit present. Mental Status: She is alert and oriented to person, place, and time. Cranial Nerves: No cranial nerve deficit. Sensory: No sensory deficit. Psychiatric: Mood and Affect: Mood normal. Behavior: Behavior normal. Thought Content: Thought content normal. Judgment: Judgment normal. Problem List Items Addressed This Visit Tobacco use disorder - Ongoing tobacco use, approximately one pack per day. Smoking is contributing to increased risk ofcomplications related to diabetes and other organ systems. - Referred to smoking cessation program. Advised cessation of tobacco use. Patient expressed interest in quitting. Referral placed for support services to assist with smoking cessation. Relevant Orders Referral to Pharmacy CDTM Uncontrolled type 2 diabetes mellitus with hyperglycemia (HCC) - Primary - Diabetes is uncontrolled, contributing to complications affecting feet - Extensive education of effects of uncontrolled blood sugar on Feet, heart, kidneys, and eyes. - Recommended strict glycemic control. Advised that controlling blood sugar will help reduce complications. Continue current diabetes medications. Monitor blood glucose at home. Emphasized importanceof diabetes management to prevent further complications. Relevant Orders POCT Glucose (Completed) Referral to Podiatry Elevated blood pressure reading in office with diagnosis of hypertension - Reported not taken BP medication before this visit - Pertinent negatives include no blurred vision, chest pain, headaches, malaise/fatigue, neck pain,orthopnea, palpitations, peripheral edema, PND, shortness of breath or sweats. There are no associated agents to hypertension. - Take your meds as prescribed. Do not change or discontinue current prescriptions without consulting health care provider - Aerobic exercise daily at 30 mins daily to reduce BP and increase as tolerated. - Eat heart healthy diet such as DASH. Low-sodium diet less than 2g/day to reduce BP and prevent ASCVD. - Monitor and record your home BP 1-2 x day and ring your log to the next visit with your PCP - Quit or decrease smoking if you smoke - Seek immediate medical attention for chest pain, palpitations, SOB, syncope, or sudden changes inmental status. Fissure in skin of both feet - Cracked skin and pain in feet with neuropathic symptoms - Cracked heels, pain, numbness, tingling, and cramping in feet, with difficulty ambulating and climbing stairs. Symptoms likely related to diabetic neuropathy and poor skin integrity. - Referred to accounting manager controller for evaluation and management. - Prescribed Lactohydrin 12% cream for topical application to feet, confirmed coverage by insurance. -Advised to soak feet in warm water, pat dry and apply cream. Emphasized importance of foot care due to diabetes to prevent future complications. Relevant Medications ammonium lactate (Lac-Hydrin) 12 % lotion Other Relevant Orders Referral to Podiatry Encounter for physical examination Vaccination: influenza and pneumococcal: - Influenza and pneumococcal vaccines are indicated due to diabetes and smoking status. Patient declined vaccines at this visit. - Advised importance of receiving influenza and pneumococcal vaccines. Documented patient declined vaccines at this time. Instructed to notify PCP when ready to receive vaccines. - Risks and side effects: Discussed possible pain at injection site and mild body aches post-vaccination. Suicidal ideation (past, under psychiatric care): - History of suicidal ideation and attempt, currently under psychiatric care and receiving medication. No current suicidal ideation or homicidal thoughts. - Continue psychiatric follow-up and current medication regimen. Dental care: - Dental evaluation and cleaning not up to date. - Advised to schedule dental check-up and cleaning at least twice per year. Offered option to register with in-house dental services if issues arise. Vision care: - Vision correction required; awaiting arrival of prescribed glasses. - Advised to follow up for glasses delivery. Need for preventive care: mammogram, pelvic exam, Pap smear, colonoscopy: - Preventive screenings are due. No mammogram completed in current year. Pap smear and pelvic exam recommended due to concern for asymmetry in pelvic area. Colonoscopy recommended due to age and riskfactors. - Advised to schedule mammogram. Advised to schedule pelvic exam and Pap smear; patient consented. Referral placed for colonoscopy; patient educated on procedure and importance for cancer screening Visit conducted in [place]. Stitcher Feeder Our Security Team ID # [id number] This note was drafted using Imagimod (Diversion) technology. The patient/patient's guardian has been informed and has consented to the use of this technology: Yes [1] Patient Active Problem List Diagnosis Type 2 diabetes mellitus with obesity Diabetic polyneuropathy (HCC) Endometriosis of uterus Excessive and frequent menstruation Hypertriglyceridemia Iron deficiency anemia Microalbuminuric diabetic nephropathy (HCC) Severe major depression (CMS/HCC) (HCC) Thyroid nodule Pain and swelling of left knee Obesity Thickened endometrium Homeless Dietary counseling Exercise counseling Tobacco use disorder Chest pain Pre-operative cardiovascular examination Uncontrolled type 2 diabetes mellitus with hyperglycemia (HCC) Elevated blood pressure reading in office with diagnosis of hypertension Hemianopsia Housing instability after recent homelessness Fissure in skin of both feet Osteoarthritis of left knee [2] No past surgical history on file. [3] No family history on file. [4] No Known Allergies [5] Current Outpatient Medications Medication Sig Dispense Refill albuterol (2.5 MG/3ML) 0.083% nebulizer solution Take 3 mL (2.5 mg) by nebulization every 6 (six) hours if needed for wheezing or shortness of breath. 75 mL 1 albuterol (Ventolin HFA) 108 (90 Base) MCG/ACT inhaler TAKE 2 PUFFS BY MOUTH EVERY 4 TO 6 HOURS NEEDED 18 g 0 Alcohol Swabs pads 1 each if needed (to clean skin). 100 each 11 ammonium lactate (Lac-Hydrin) 12 % lotion Apply topically to heels twice daily 225 g 1 Ascorbic Acid (vitamin C) 250 MG tablet TAKE 1 TABLET BY MOUTH EVERY DAY WITH IRON 90 tablet 1 aspirin 81 MG EC tablet Take 1 tablet (81 mg) by mouth Once per day. 90 tablet 3 atorvastatin (Lipitor) 20 MG tablet TAKE 1 TABLET BY MOUTH EVERY DAY 90 tablet 1 betamethasone valerate (Valisone) 0.1 % ointment Apply twice daily to hands x 2 weeks 45 g 0 Blood Glucose Monitoring Suppl (FreeStyle Lite) w/Device kit 1 each by Subdermal route 3 times daily. USE TO TEST BLOOD SUGAR THREE TIMES DAILY 1 kit 0 Blood Pressure Monitoring (Blood Pressure Kit) kit Use to check blood pressure daily 1 kit 0 celecoxib (CeleBREX) 100 MG capsule TAKE 1 CAPSULE BY MOUTH TWICE A DAY NEEDED FOR PAIN 60 capsule 0 Continuous Glucose Design Quality Engineer (FreeStyle Karen 3 [place]) device 1 each 3 times daily. Use to check blood sugar 3 times daily 1 each 0 Continuous Glucose Sensor (FreeStyle Karen 3 Plus Sensor) misc 1 each every 15 days. Change every 15 days 2 each 11 COVID-19 At Home Antigen Test (BinaxNOW COVID-19 Ag Home Test) kit USE TEST INSTRUCTED ON INSTRUCTIONS 2 kit 0 FeroSul 325 (65 Fe) MG tablet Take 1 tablet by mouth Once per day. fluconazole (Diflucan) 150 MG tablet Take one tablet by mouth now and take the second tablet by mouth in 72 hours. 2 tablet 0 FreeStyle lancets 1 each by Other route 3 times daily. 100 each 11 glucose blood (FreeStyle Precision Jaun Test) test strip Use to check blood sugar TID 100 each 11 hydrOXYzine pamoate (Vistaril) 25 MG capsule Take 1 capsule (25 mg) by mouth if needed in the morning and at bedtime for anxiety. 30 capsule 0 insulin degludec (Tresiba FlexTouch) 100 UNIT/ML injection INJECT 14 UNITS SUBCUTANEOUSLY ONCE A DAY 3 mL 2 lidocaine (Lidoderm) 5 % patch APPLY 1 PATCH TOPICALLY DAILY REMOVE AND DISCARD PATCH WITHIN 12 HOURS OR as DIRECTED BY 28 patch 2 loratadine (SM All Day Allergy Relief) 10 MG tablet TAKE 1 TABLET BY MOUTH EVERY DAY NEEDED FOR ALLERGIES 90 tablet 1 metFORMIN XR (Glucophage-XR) 500 MG 24 hr tablet TAKE 2 TABLETS BY MOUTH TWICE DAILY WITH MEALS. DONOT CRUSH, CHEW OR SPLIT. 360 tablet 1 nicotine (Nicoderm, Step 3) 7 MG/24HR patch APPLY 1 PATCH TOPICALLY ONCE DAILY IN THE MORNING *DO NOT SMOKE WHILE USING 28 patch 2 nicotine polacrilex (Nicorette) 2 MG gum Chew 1 each (2 mg) if needed for smoking cessation. 100 each 0 nicotine polacrilex (Nicorette) 2 MG lozenge Dissolve 1 lozenge (2 mg) in the mouth if needed for smoking cessation. 100 lozenge 0 olmesartan-hydroCHLOROthiazide (Benicar HCT) 20-12.5 MG tablet Take 1 tablet by mouth Once per day.90 tablet 3 pen needle 32G x 5 mm misc Use as instructed with coopersimyla 100 each 12 polyvinyl alcohol (Liquifilm Tears) 1.4 % ophthalmic solution Administer 1 drop into both eyes if needed for dry eyes. 15 mL 4 sertraline (Zoloft) 100 MG tablet Take 100 mg by mouth Once per day. sharps container Use for disposal of used pen needles, needles, syringes, injection supplies 1 each11 Skin Protectants, Misc. (Eucerin Original Healing) cream Apply 2 g topically 2 times daily. 454 g 11 Tirzepatide (Mounjaro) 2.5 MG/0.5ML solution auto-injector Inject 2.5 mg under the skin 1 (one) time per week. 2 mL 0 traMADol (Ultram) 50 MG tablet Take 1 tablet (50 mg) by mouth if needed in the morning and at bedtime for severe pain for up to 14 days. 28 tablet 0 No current facility-administered medications for this visit. documented in this encounter Plan of Treatment Upcoming Encounters Date Type Department Care Team (Late st Contact Info) Description 03/08/2025 2:00 PM EST Office Visit [facility] [address] [place] [address] Fiorella Calvo ANP [address] [place], [place] [id number] Scheduled Referrals Name Type Priority Associated Diagnoses Orde r Schedule Referral to Podiatry Outpatient Referral Routine Uncontrolled type 2 diabetes mellitus with hyperglycemia (HCC) Fissure in skin of both feet Expected: 02/02/2025 (Approximate), Expires: 02/02/2026 documented as of this encounter Goals Goal Patient Goal Type Associated Problems Recent Progress Patient-Stated? Author Quit using tobacco (cigarettes, smokeless, etc) Tobacco Use No Kolby Morin, KariD Help patients manage their type 2 diabetes Care Plan Help patients manage their type 2 diabetes No Kristen Siddiqui RN Weekly blood pressure task Care Plan Weekly blood pressure task No Kristen Siddiqui RN Help patients manage their type 2 diabetes Care Plan Help patients manage their type 2 diabetes No Kristen Siddiqui RN Patient has chronic kidney disease Care Plan Patient has chronic kidney disease No Kristen Siddiqui RN Help patients manage their type 2 diabetes Care Plan Help patients manage their type 2 diabetes No Kristen Siddiqui RN Patient has diabetic neuropathy Care Plan Patient has diabetic neuropathy No Kristen Siddiqui RN Weekly blood pressure task Care Plan Weekly blood pressure task No Kristen Siddiqui RN Weekly blood pressure task Care Plan Weekly blood pressure task No Kristen Siddiqui RN Patient has chronic kidney disease Care Plan Patient has chronic kidney disease No Kristen Siddiqui RN Patient has chronic kidney disease Care Plan Patient has chronic kidney disease No Artur, Kristen, RN Patient has diabetic neuropathy Care Plan Patient has diabetic neuropathy No Kristen Siddiqui RN Patient has diabetic neuropathy Care Plan Patient has diabetic neuropathy No Kristen Siddiqui RN Weekly blood pressure task Care Plan Weekly blood pressure task No Vikki Hilliard RN Weekly blood pressure task Care Plan Weekly blood pressure task No Vikki Hilliard RN Weekly blood pressure task Care Plan Weekly blood pressure task No Vikki Hilliard RN Patient has chronic kidney disease Care Plan Patient has chronic kidney disease No Vikki Hilliard RN Patient has chronic kidney disease Care Plan Patient has chronic kidney disease No Vikki Hilliard RN Patient has chronic kidney disease Care Plan Patient has chronic kidney disease No Vikki Hilliard RN Patient has diabetic neuropathy Care Plan Patient has diabetic neuropathy No Vikki Hilliard RN Patient has diabetic neuropathy Care Plan Patient has diabetic neuropathy No Vikki Hilliard RN Patient has diabetic neuropathy Care Plan Patient has diabetic neuropathy No Vikki Hilliard RN Weekly blood pressure task Care Plan Weekly blood pressure task No Rodrigue Acevedo [place] Weekly blood pressure task Care Plan Weekly blood pressure task No Rodrigue Acevedo [place] Weekly blood pressure task Care Plan Weekly blood pressure task No Rodrigue Acevedo [place] Patient has chronic kidney disease Care Plan Patient has chronic kidney disease No Rodrigue Acevedo [place] Patient has chronic kidney disease Care Plan Patient has chronic kidney disease No Rodrigue Acevedo [place] Patient has chronic kidney disease Care Plan Patient has chronic kidney disease No Rodrigue Acevedo [place] Patient has diabetic neuropathy Care Plan Patient has diabetic neuropathy No Rodrigue Acevedo [place] Patient has diabetic neuropathy Care Plan Patient has diabetic neuropathy No Rodrigue Acevedo [place] Patient has diabetic neuropathy Care Plan Patient has diabetic neuropathy No Rodrigue Acevedo [place] Weekly blood pressure task Care Plan Weekly blood pressure task No Rodrigue Acevedo MA Weekly blood pressure task Care Plan Weekly blood pressure task No Rodrigue Acevedo MA Weekly blood pressure task Care Plan Weekly blood pressure task No Rodrigue Acevedo [place] Patient has chronic kidney disease Care Plan Patient has chronic kidney disease No Rodrigue Acevedo [place] Patient has chronic kidney disease Care Plan Patient has chronic kidney disease No Rodrigue Acevedo [place] Patient has chronic kidney disease Care Plan Patient has chronic kidney disease No Rodrigue Acevedo [place] Patient has diabetic neuropathy Care Plan Patient has diabetic neuropathy No Rodrigue Acevedo [place] Patient has diabetic neuropathy Care Plan Patient has diabetic neuropathy No Rodrigue Acevedo [place] Patient has diabetic neuropathy Care Plan Patient has diabetic neuropathy No Rodrigue Acevedo [place] Weekly blood pressure task Care Plan Weekly blood pressure task No Okhipo, Lorna, ATHLETICS DIRECTOR Weekly blood pressure task Care Plan Weekly blood pressure task No Okhipo, Lorna, ATHLETICS DIRECTOR Weekly blood pressure task Care Plan Weekly blood pressure task No Okhipo, Lorna, ATHLETICS DIRECTOR Patient has chronic kidney disease Care Plan Patient has chronic kidney disease No Okhipo, Lorna, ATHLETICS DIRECTOR Patient has chronic kidney disease Care Plan Patient has chronic kidney disease No Okhipo, Lorna, ATHLETICS DIRECTOR Patient has chronic kidney disease Care Plan Patient has chronic kidney disease No Okhipo, Lorna, ATHLETICS DIRECTOR Patient has diabetic neuropathy Care Plan Patient has diabetic neuropathy No Okhipo, Lorna, ATHLETICS DIRECTOR Patient has diabetic neuropathy Care Plan Patient has diabetic neuropathy No Okhipo, Lorna, ATHLETICS DIRECTOR Patient has diabetic neuropathy Care Plan Patient has diabetic neuropathy No Okhipo, Lorna, ATHLETICS DIRECTOR Weekly blood pressure task Care Plan Weekly blood pressure task No Amelie Limona Weekly blood pressure task Care Plan Weekly blood pressure task No Amelie Limona Weekly blood pressure task Care Plan Weekly blood pressure task No Braxton, Deana Patient has chronic kidney disease Care Plan Patient has chronic kidney disease No Braxton Deana Patient has chronic kidney disease Care Plan Patient has chronic kidney disease No Braxton Deana Patient has chronic kidney disease Care Plan Patient has chronic kidney disease No Braxton Deana Patient has diabetic neuropathy Care Plan Patient has diabetic neuropathy No Braxton Deana Patient has diabetic neuropathy Care Plan Patient has diabetic neuropathy No Amelie Limona Patient has diabetic neuropathy Care Plan Patient has diabetic neuropathy No Amelie Limona documented as of this encounter Procedures Procedure Name Priority Date/Time Associated Diagnosis Comments POCT GLUCOSE Routine 02/01/2025 9:26 AM EST Uncontrolled type 2 diabetes mellitus with hyperglycemia (HCC) documented in this encounter Results * (ABNORMAL) POCT Glucose (02/01/2025 9:26 AM EST) Pathologist [facility] Glucose Blood, POC 278(A) 60 - 200 mg/dL QC Media Lot # [id number] Lot# Expiration Date [id number] Blood Capillary blood specimen / Unknown 02/01/2025 9:26 AM EST Lorna Ragsdale [facility] POINT OF CARE TEST ENTER/EDIT ORDERABLES Final Result documented in this encounter Visit Diagnoses Diagnosis Encounter for physical examination- Primary Uncontrolled type 2 diabetes mellitus with hyperglycemia (HCC) Tobacco use disorder Fissure in skin of both feet Elevated blood pressure reading in office with diagnosis of hypertension documented in this encounter Additional Health Concerns Active Problems Noted Date Diagnosed Date Help patients manage their type 2 diabetes 01/27 Weekly blood pressure task 01/27/2025 Help patients manage their type 2 diabetes 01/27 Patient has chronic kidney disease 01/27/2025 Help patients manage their type 2 diabetes 01/27 Patient has diabetic neuropathy 01/27/2025 Weekly blood pressure task 01/27/2025 Weekly blood pressure task 01/27/2025 Patient has chronic kidney disease 01/27/2025 Patient has chronic kidney disease 01/27/2025 Patient has diabetic neuropathy 01/27/2025 Patient has diabetic neuropathy 01/27/2025 Weekly blood pressure task 01/28/2025 Weekly blood pressure task 01/28/2025 Weekly blood pressure task 01/28/2025 Patient has chronic kidney disease 01/28/2025 Patient has chronic kidney disease 01/28/2025 Patient has chronic kidney disease 01/28/2025 Patient has diabetic neuropathy 01/28/2025 Patient has diabetic neuropathy 01/28/2025 Patient has diabetic neuropathy 01/28/2025 Weekly blood pressure task 01/28/2025 Weekly blood pressure task 01/28/2025 Weekly blood pressure task 01/28/2025 Patient has chronic kidney disease 01/28/2025 Patient has chronic kidney disease 01/28/2025 Patient has chronic kidney disease 01/28/2025 Patient has diabetic neuropathy 01/28/2025 Patient has diabetic neuropathy 01/28/2025 Patient has diabetic neuropathy 01/28/2025 Weekly blood pressure task 01/28/2025 Weekly blood pressure task 01/28/2025 Weekly blood pressure task 01/28/2025 Patient has chronic kidney disease 01/28/2025 Patient has chronic kidney disease 01/28/2025 Patient has chronic kidney disease 01/28/2025 Patient has diabetic neuropathy 01/28/2025 Patient has diabetic neuropathy 01/28/2025 Patient has diabetic neuropathy 01/28/2025 Weekly blood pressure task 01/31/2025 Weekly blood pressure task 01/31/2025 Weekly blood pressure task 01/31/2025 Patient has chronic kidney disease 01/31/2025 Patient has chronic kidney disease 01/31/2025 Patient has chronic kidney disease 01/31/2025 Patient has diabetic neuropathy 01/31/2025 Patient has diabetic neuropathy 01/31/2025 Patient has diabetic neuropathy 01/31/2025 Weekly blood pressure task 02/01/2025 Weekly blood pressure task 02/01/2025 Weekly blood pressure task 02/01/2025 Patient has chronic kidney disease 02/01/2025 Patient has chronic kidney disease 02/01/2025 Patient has chronic kidney disease 02/01/2025 Patient has diabetic neuropathy 02/01/2025 Patient has diabetic neuropathy 02/01/2025 Patient has diabetic neuropathy 02/01/2025 Assessment Noted Time PHQ-9 Depression Total Score: 21 025 1:51 PM EDT documented as of this encounter Care Teams Sail Cutter Relationship Specialty Start Date End Date Fiorella Calvo ANP [address] [place] [address] PCP - General Family Medicine 11/04/20 Kolby Morin, Love [address] [place] [address] Pharmacist Internal Medicine 08/19/23 documented as of this encounter
--- NOTE | 2025-02-05 13:22 | A.OFFVIS_ITS ---
Vital Signs 02/05/25 13:24 Height 5 ft 6 in Weight 189 lb 2 oz BMI 30.5 BP 140/88 H Blood Pressure Location Lt brachial Position Sitting Pulse 94 Pulse Source Pulse Oximeter Pulse Oximetry (%) 98 Oxygen Delivery Method Room Air Intake Visit Reasons: Abnormal CT scan Engineering Programmer Required: Yes Engineering Programmer Language: Ride Attendant Services: Engineering Programmer Present Engineering Programmer Name: Steffany Malloy LM Allergies No Known Allergies Allergy (Verified 02/05/25 13:27) HPI HPI Abnormal CT scan: Details: Teena is a pleasant 44 year old female, active 30 pack year smoker, with underlying DMII. She was referred by PCP for pulmonary evaluation after recent ED evaluation at [facility] 12/2024. She was initially seen on 12/16 for ongoing productive cough RLQ pain ultimately diagnosed with RLL pneumonia d/c with Cefpodoxime and Azithromycin. There was also an incidental finding of possible right ovarian mass, had PET in early January through [facility] which was inconclusive for pelvis recommended further examination with US as well as mammogram. It did demonstrate resolving RLL infiltrate. Of note, patient did not complete one of the antibiotics, it is unclear which one. She continues with productive cough with yellowish sputum and occasional hemoptypsis, dyspnea and wheezing. She had coughed up blood clots on one occasion a few days ago. Denies any other symptoms suggestive of DVT/PE. She was sent for TB test by PCP which was borderline in addition to night sweats and 20lb weight loss in less than 2 months. Denies fevers or chest congestion. Denies any recent travel or residing in a homeless halfway. Denies prior h/o asthma/COPD, although likely given smoking history. She denies any occupational exposures. She reports grandson with asthma otherwise denies any pertinent family history. [facility] Medical History Patellofemoral arthritis of left knee High blood pressure Vitamin D deficiency Multinodular thyroid Diabetes Surgical History History of surgery History of hand surgery Hx of section Family History Father No problems noted. Mother Type 2 diabetes mellitus Social History (Updated 02/05/25 @ 13:27 by Steffany Alvarez CMA) Alcohol intake: unknown Patient Tobacco Use Status: Current everyday Tobacco user Tobacco use type: Cigarette Cigarettes Per Day: 2 Current occupational status: employed Current occupation: hotel Review of Systems Const Denies chills, Denies excessive sweating, Denies fever(s) and Denies headache(s) Eyes Denies dry eyes, Denies irritation and Denies itchy eyes ENT Reports Normal hearing present, Denies headache(s), Denies nasal congestion, Denies nasal discharge, Denies post nasal drip and Denies sore throat Card Denies chest pain, Denies chest pain at rest, Denies chest pain with activity, Denies claudication, Denies leg edema, Reports dyspnea on exertion, Denies orthopnea and Denies paroxysmal nocturnal dyspnea Resp Reports change in phlegm color, Denies chest congestion, Reports cough, Reports hemoptysis, Denies excessive phlegm production, Denies pain on inspiration, Denies pain with cough, Reports dyspnea on exertion, Denies stridor and Reports wheezing Musc Denies myalgias Neuro Reports Normal hearing present and Denies headache(s) Endo Denies excessive sweating Zachary/Lymph Denies lymphadenopathy Aller/Immun Denies itchy eyes, Denies seasonal rhinorrhea and Reports wheezing Physical Exam Vital Signs: Last Vital Signs Pulse 94 02/05/25 13:24 BP 140/88 H 02/05/25 13:24 Pulse Ox 98 02/05/25 13:24 Oxygen Delivery Method Room Air 02/05/25 13:24 BMI result Body Mass Index 30.5 Const General: cooperative, comfortable, no acute distress, well developed, alert and tired appearing Orientation/consciousness: patient oriented x3 Limitations: no limitations HEENT Head: Yes normal to inspection, Yes normocephalic and Yes atraumatic Ears: hearing grossly normal bilaterally and external ears normal Eyes General: appearance normal, both eyes and all related structures Eyelids: Yes eyelids normal Sclerae: sclerae normal EOM: EOMs intact bilaterally Neck Neck: Yes normal visual inspection and Yes no lymphadenopathy Lymphatic: no lymphadenopathy noted Chest Chest palpation & inspection: normal inspection of the chest Resp Other: moderately approved with DuoNeb Effort & Inspection: normal respiratory effort, able to speak in complete sentences, no audible wheezes, no cough, no stridor, not tachypneic, no tripod positioning and no use of accessory muscles Auscultation: rhonchi and wheezes Cardio Jugular venous distension: no JVD Rate: regular rate Rhythm: regular rhythm Skin Other: warm, dry General skin exam: no rashes or lesions noted Neuro General: patient oriented x3 Cranial nerves: Yes Normal hearing present Cognition (Neuro): normal cognition Gait exam (Neuro): Normal gait present Extrem General: Yes normal to inspection, Yes capillary refill normal, Yes no clubbing, cyanosis or edema and Yes no pedal edema Psych Appearance: grossly normal and well kempt Speech and movement: Normal speech and movement present and Clear speech present Affect: normal affect Attitude: cooperative Thought process: Normal thought process present Thought content: Normal thought content present Insight: Good insight present (Psych) Judgement: Good judgement present (Psych) Office Procedures Nebulizer Treatment Nebulizer Treatment 00972-Gfvfiqvst/MDI RX initial, or Nebulizer Subsequent Treatment Office Meds ipratropium 0.5 mg-albuterol 3 mg (2.5 mg base)/3 mL nebulization soln Performing Provider: Araseli Shoemaker NP Performing Location: [facility] Administered by: Abby Linn LPN on 02/05/25 14:08 Dose Route Admin Location Dispensed Lot Number Expiration Date [facility] Pullman Clerk 3 mL inhalation 3 mL [id number] 12/15/25 59820-163-71 [employer] Assessment & Plan Assessment & Plan (1) COPD (chronic obstructive pulmonary disease): Code(s): J44.9 - Chronic obstructive pulmonary disease, unspecified Category: Medical (2) Cough with hemoptysis: Code(s): R04.2 - Hemoptysis Category: Medical (3) Nicotine dependence, cigarettes, uncomplicated: Code(s): F17.210 - Nicotine dependence, cigarettes, uncomplicated Category: Medical (4) History of recent pneumonia: Code(s): Z87.01 - Personal history of pneumonia (recurrent) Category: Medical Plan Teena presents for pulmonary evaluation after suboptimal response to abx upon discharge from [facility] in December, continues with productive cough, occasional hemoptysis, dyspnea and wheezing. Given symptoms of night sweats, weight loss and borderline TB test in addition to hemoptysis, will repeat CXR and Tspot now. Discussed importance of wearing a mask and limiting exposure to public until we receive results of test. Will also send for a ddimer to rule out PE and send for CTA to assess for any underlying vascular malformations contributing to hemoptysis. Patient aware if hemoptysis continues or symptoms worsen to seek emergent care. At this time patient with bronchitic symptoms and significant wheezing on exam, will send Augmentin and prednisone. Side effects of prednisone reviewed including importance of monitoring blood glucose. Will also send DuoNeb to be used 1-2 times per day for the next 5-7 days. Likely patient with asthma/COPD given smoking history, will send for PFT to assess severity of obstructive defect. Smoking cessation reviewed and working towards this. All questions were answered and patient in agreement of plan. Will follow up in 2 weeks or sooner if needed. Orders: Orders AMB Nebulizer Treatment Today J44.9 - Chronic obstructive pulmonary disease, unspecified T Spot TB Today R05.9 - Cough, unspecified D Dimer High Sensitivity Today R04.2 - Hemoptysis XR chest 2V Today R05.9 - Cough, unspecified PFT pulmonary function test Today F17.210 - Nicotine dependence, cigarettes, uncomplicated, J44.9 - Chronic obstructive pulmonary disease, unspecified Medications: New amoxicillin-pot clavulanate 875-125 mg 1 tab PO Q12H 20 tabs 0RF prednisone 20 mg PO DAILY 5 tabs 0RF ipratropium-albuterol 0.5 mg-3 mg(2.5 mg base)/3 mL 3 mL inhalation Q6H PRN 180 mL 1RF wheezing Coding Level of Care Code Complex visit Add On G2211 Diagnoses COPD (chronic obstructive pulmonary disease) J44.9 Cough with hemoptysis R04.2 Nicotine dependence, cigarettes, uncomplicated F17.210 History of recent pneumonia Z87.01 CPT Codes Nebulizer Treatment - Nebulizer Treatment, initial or subsequent: 63061- Nebulizer/MDI RX initial, or Nebulizer Subsequent Treatment ([id number])
[2025-02-05 13:24] VITALS: BP 140/88; PULSE 94; O2SAT 98; BMI 30.5
--- OUTSIDE RECORDS SUMMARY | 2025-02-05 13:40 | XMS_ITS | Encounter Summary ---
Author Organization [employer] Address [address] [facility] 7t [place] [address] Care Team Providers Care It Architect Name Role Phone Fiorella Calvo Primary Care Provider [phone] Kolby Morin PharmD Unavailable [phone] Reason for Visit * Reason Onset Date Comments Med Refill 02/03/2024 Encounter Details Date Type Department Care Team (Late st Contact Info) Description 02/03/2024 Refill [facility] [address] [place] [address] Fiorella Calvo ANP [address] [place] [address] Chronic left-sided low back pain with left-sided sciatica; Diabetic polyneuropathy associated with type 2 diabetes mellitus (CMS/HCC); Anxiety; Type 2 diabetes mellitus with hyperlipidemia (CMS/HCC) ([facility]/HCC) Social History Tobacco Use Types Packs/Day Years [...] Description 03/08/2025 2:00 PM EST Office Visit [facility] [address] [place] [address] Fiorella Calvo ANP [address] [place] [address] documented as of this encounter Goals Goal [...] documented as of this encounter Care Teams It Architect Relationship Specialty Start Date End Date Fiorella Calvo ANP [address] [place] [phone] PCP - General Family Medicine 11/04/20 Kolby Morin, Love [address] [place] [address] Pharmacist Internal Medicine 08/19/23 documented as of this encounter
--- OUTSIDE RECORDS SUMMARY | 2025-02-05 13:41 | XMS_ITS | Encounter Summary ---
Author Organization [employer] Address [address] [facility] 7t [place] [address] Care Team Providers Care Gang Supervisor Pipe Lines Name Role Phone Fiorella Calvo Primary Care Provider [phone] Kolby Morin PharmD Unavailable [phone] Reason for Visit * Reason Onset Date Comments Med Refill 01/01/2025 Encounter Details Date Type Department Care Team (Late st Contact Info) Description 01/01/2025 Refill [facility] [address] [place], [place] [phone] Fiorella Calvo ANP [address] [place] [address] Type 2 diabetes mellitus with obesity; Type [...] Description 03/08/2025 2:00 PM EST Office Visit [facility] [address] [place] [address] Fiorella Calvo ANP [address] [place] [address] documented as of this encounter Goals Goal Patient Goal Type Associated Problems Recent Progress Patient-Stated? Author Quit using tobacco (cigarettes, smokeless, etc) Tobacco Use Kolby Liu, KariD documented as of this encounter Visit Diagnoses Diagnosis Type 2 diabetes mellitus with obesity Type 2 diabetes mellitus with hyperlipidemia (HCC) Diabetic polyneuropathy associated with type 2 diabetes mellitus (HCC) documented in this encounter Additional Health Concerns Assessment Noted Time PHQ-9 Depression Total Score: 26 025 11:43 AM EST documented as of this encounter Care Teams Gang Supervisor Pipe Lines Relationship Specialty Start Date End Date Fiorella Calvo ANP [address] [place] [address] PCP - General Family Medicine 11/04/20 Kolby Morin, Love [address] [place] [address] Pharmacist Internal Medicine 08/19/23 documented as of this encounter
--- OUTSIDE RECORDS SUMMARY | 2025-02-05 13:41 | XMS_ITS | Encounter Summary ---
Author Organization [employer] Address [address] [facility] 7t [place] [address] Care Team Providers Care Telecommunicator Supervisor Name Role Phone Fiorella Calvo Primary Care Provider [phone] Kolby Morin PharmD Unavailable [phone] Reason for Visit * Reason Onset Date Comments Med Refill 05/09/2024 Encounter Details Date Type Department Care Team (Late st Contact Info) Description 05/09/2024 Refill [facility] [address] [place], [place] [phone] Jyoti Melendez NP [address] [place] [address] Type 2 diabetes mellitus with hyperlipidemia ([facility]/HCC) ([facility]) Social History Tobacco Use Types Packs/Day [...] Description 03/08/2025 2:00 PM EST Office Visit [facility] [address] [place] [address] Fiorella Calvo ANP [address] [place] [address] documented as of this encounter Goals Goal [...] documented as of this encounter Care Teams Telecommunicator Supervisor Relationship Specialty Start Date End Date Fiorella Calvo ANP [address] [place] [phone] PCP - General Family Medicine 11/04/20 Kolby Morin, PharmD [address] [place] [phone] Pharmacist Internal Medicine 08/19/23 documented as of this encounter
--- OUTSIDE RECORDS SUMMARY | 2025-02-05 13:41 | XMS_ITS | Encounter Summary ---
Author Organization [employer] Address [address] [facility] 7t [place] [address] Care Team Providers Care Campus President Name Role Phone Fiorella Calvo Primary Care Provider [phone] Kolby Morin PharmD Unavailable [phone] Reason for Visit * Reason Onset Date Comments Med Refill 03/23/2024 Encounter Details Date Type Department Care Team (Late st Contact Info) Description 03/23/2024 Refill [facility] [address] [place], [place] [phone] Fiorella Calvo ANP [address] [place] [address] Type 2 diabetes mellitus with hyperlipidemia (CMS/HCC) ([facility]/HCC); Diabetic polyneuropathy associated with type 2 diabetes [...] Description 03/08/2025 2:00 PM EST Office Visit [facility] [address] [place] [address] Fiorella Calvo ANP [address] [place] [address] documented as of this encounter Goals Goal [...] documented as of this encounter Care Teams Campus President Relationship Specialty Start Date End Date Fiorella Calvo ANP [address] [place] [address] PCP - General Family Medicine 11/04/20 Kolby Morin, Love [address] [place] [address] Pharmacist Internal Medicine 08/19/23 documented as of this encounter
--- OUTSIDE RECORDS SUMMARY | 2025-02-05 13:41 | XMS_ITS | Encounter Summary ---
Author Organization [employer] [facility] Address [address] [place] [address] 7 [place] [address] Care Team Providers Care Aerial Lineman Name Role Phone Fiorella Calvo Primary Care Provider [phone] Kolby Morin PharmD Unavailable [phone] Reason for Visit * Reason Onset Date Comments Med Refill 07/16/2023 Encounter Details Date Type Department Care Team (Late st Contact Info) Description 07/16/2023 Refill [facility] [address] [place] [phone] Fiorella Calvo ANP [address] [place] [address] Diabetes mellitus type 2 in obese Social [...] Description 03/08/2025 2:00 PM EST Office Visit [facility] [address] [place] [address] Fiorella Calvo ANP [address] [place] [address] documented as of this encounter Visit Diagnoses Diagnosis Diabetes mellitus type 2 in obese Type II or unspecified type diabetes mellitus without mention of complication, not stated as uncontrolled documented in this encounter Care Teams Aerial Lineman Relationship Specialty Start Date End Date Fiorelal Calvo ANP [address] [place] [address] PCP - General Family Medicine 11/04/20 Kolby Morin PharmD [address] [place] [address] Pharmacist Internal Medicine 08/19/23 documented as of this encounter
--- OUTSIDE RECORDS SUMMARY | 2025-02-05 13:41 | XMS_ITS | Encounter Summary ---
Author Organization [employer] [facility] Address [address] [place] [address] 7t [place] [address] Care Team Providers Care Procedure Manager Name Role Phone Fiorella Calvo Primary Care Provider [phone] Kolby Morin PharmD Unavailable Reason for Visit * Reason Onset Date Comments Med Refill 10/20/2023 Encounter Details Date Type Department Care Team (Late st Contact Info) Description 10/20/2023 Refill [facility] [address] [place], [place] [phone] Fiorella Calvo ANP [address] [place] [address] Type 2 diabetes mellitus with hyperlipidemia (CMS/HCC) [...] Description 03/08/2025 2:00 PM EST Office Visit [facility] [address] [place] [address] Fiorella Calvo ANP [address] [place] [address] documented as of this encounter [...] documented as of this encounter Care Teams Procedure Manager Relationship Specialty Start Date End Date Fiorella Calvo ANP [address] [place] [address] PCP - General Family Medicine 11/04/20 Kolby Morin, KariD [address] [place] [address] Pharmacist Internal Medicine 08/19/23 documented as of this encounter
--- OUTSIDE RECORDS SUMMARY | 2025-02-05 13:41 | XMS_ITS | Encounter Summary ---
Author Organization [employer] Address [address] [facility] 7t [place] [address] Care Team Providers Care Stockbroking Dealer Name Role Phone Fiorella Calvo Primary Care Provider [phone] Kolby Morin PharmD Unavailable [phone] Reason for Visit * Reason Onset Date Comments Med Refill 03/22/2024 Encounter Details Date Type Department Care Team (Late st Contact Info) Description 03/22/2024 Refill [facility] [address] [place], [place] [phone] Fiorella Calvo ANP [address] [place] [address] Type 2 diabetes mellitus with hyperlipidemia ([facility]/HCC) ([facility]) Social History Tobacco Use Types [...] with others, in a hotel, in a longterm, living outside on the street, on a [...] Description 03/08/2025 2:00 PM EST Office Visit [facility] [address] [place] [phone] Fiorella Calvo ANP [address] [place] [address] documented as of this encounter Goals Goal [...] documented as of this encounter Care Teams Stockbroking Dealer Relationship Specialty Start Date End Date Fiorella Calvo ANP [address] [place] [address] PCP - General Family Medicine 11/04/20 Kolby Morin, PharmD [address] [place] [phone] Pharmacist Internal Medicine 08/19/23 documented as of this encounter
--- OUTSIDE RECORDS SUMMARY | 2025-02-05 13:41 | XMS_ITS | Encounter Summary ---
Author Organization [employer] [facility] Address [address] [place] [address] 7 [place] [address] Care Team Providers Care Tractor Trailer Operator Name Role Phone Fiorella Calvo Primary Care Provider [phone] Kolby Morin PharmD Unavailable [phone] Reason for Visit * Reason Comments Med Refill Encounter Details Date Type Department Care Team (Late st Contact Info) Description 07/17/2023 Refill [facility] [address] [place] [address] [phone] Fiorella Calvo ANP [address] [place] [phone] Type 2 diabetes mellitus with hyperlipidemia ([facility]) ([facility]) Social History Tobacco Use Types Packs/Day Years [...] EST Office Visit [facility] [address] [place] [address] [phone] Fiorella Calvo ANP [address] [place], [place] [phone] documented as of this encounter Visit Diagnoses Diagnosis Type 2 diabetes mellitus with hyperlipidemia (HCC) documented in this encounter Care Teams Tractor Trailer Operator Relationship Specialty Start Date End Date Fiorella Calvo ANP [address] [place] [address] PCP - General Family Medicine 11/04/20 Kolby Morin PharmD [address] [place] [address] Pharmacist Internal Medicine 08/19/23 documented as of this encounter
--- OUTSIDE RECORDS SUMMARY | 2025-02-05 13:41 | XMS_ITS | Encounter Summary ---
Author Organization [employer] Address [address] [facility] 7t [place] [address] Care Team Providers Care Broadcast Meteorologist Name Role Phone Fiorella Calvo Primary Care Provider [phone] Kolby Morin PharmD Unavailable [phone] Reason for Visit * Reason Onset Date Comments Medication Question 12/17/2024 Durable Medical Equipment 12/17/2024 Encounter Details Date Type Department Care Team (Late st Contact Info) Description 12/17/2024 Telephone [facility] MEDICINE [address] [place], [place] [phone] Fiorella Calvo ANP 230 [place] [address] Medication Question; Durable Medical Equipment Social History [...] script for a nebulizer Contact pt at [phone] (mauritian) documented in this encounter Plan of Treatment Upcoming Encounters Date Type Department Care Team ([facility] st Contact Info) Description 03/08/2025 2:00 PM EST Office Visit [facility] MED[facility] 230 [place] [address] Fiorella Calvo ANP 230 [place] [address] documented as of this encounter Goals Goal Patient Goal Type Associated Problems Recent Progress Patient-Stated? Author Quit using tobacco (cigarettes, smokeless, etc) Tobacco Use No Kolby Morin, Love documented as of this encounter Visit Diagnoses Not on filedocumented in this encounter Additional Health Concerns Assessment Noted Time PHQ-9 Depression Total Score: 26 025 11:43 AM EST documented as of this encounter Care Teams Broadcast Meteorologist Relationship Specialty Start Date End Date Fiorella Calvo ANP [address] [place] [address] PCP - General Family Medicine 11/04/20 Kolby Morin, PharmD [address] [place] [address] Pharmacist Internal Medicine 08/19/23 documented as of this encounter
--- OUTSIDE RECORDS SUMMARY | 2025-02-05 13:41 | XMS_ITS | Encounter Summary ---
Author Organization [employer] Address [address] [facility] 7 [place] [address] Care Team Providers Care Project Designer Name Role Phone Fiorella Calvo Primary Care Provider [phone] Kolby Morin PharmD Unavailable [phone] Reason for Visit * Reason Onset Date Comments Med Refill 04/08/2024 Encounter Details Date Type Department Care Team (Late st Contact Info) Description 04/08/2024 Refill [facility] MEDICINE 230 [place], [place] [phone] Fiorella Calvo ANP 230 [place] [address] Type 2 diabetes mellitus with hyperlipidemia (CMS/HCC) ([facility]/HCC); Diabetic polyneuropathy associated with type 2 [...] Description 03/08/2025 2:00 PM EST Office Visit [facility] MEDICINE [address] [place] [address] Fiorella Calvo ANP 230 [place] [address] documented as of this encounter Goals Goal [...] documented as of this encounter Care Teams Project Designer Relationship Specialty Start Date End Date Fiorella Calvo ANP 230 [place] [address] PCP - General Family Medicine 11/04/20 Kolby Morin, Love 230 [place] [address] Pharmacist Internal Medicine 08/19/23 documented as of this encounter
--- OUTSIDE RECORDS SUMMARY | 2025-02-05 13:41 | XMS_ITS | Encounter Summary ---
Author Organization [employer] Address 75 [facility] 7 [place] [address] Care Team Providers Care Riprap Man Name Role Phone Fiorella Calvo Primary Care Provider [phone] Kolby Morin PharmD Unavailable [phone] Reason for Visit * Reason Onset Date Comments Med Refill 07/29/2024 Encounter Details Date Type Department Care Team (Late st Contact Info) Description 07/29/2024 Refill [facility] MEDICINE 230 [place], [place] [phone] Fiorella Calvo ANP 230 [place] [address] Type 2 diabetes mellitus with hyperlipidemia (CMS/HCC) ([facility]/HCC); Diabetic polyneuropathy associated with type 2 diabetes [...] Description 03/08/2025 2:00 PM EST Office Visit [facility] MEDICINE [address] [place] [address] Fiorella Calvo ANP 230 [place] [address] documented as of this encounter Goals Goal [...] documented as of this encounter Care Teams Riprap Man Relationship Specialty Start Date End Date Fiorella Calvo ANP 230 [place] [address] PCP - General Family Medicine 11/04/20 Kolby Morin, Love 230 [place] [address] Pharmacist Internal Medicine 08/19/23 documented as of this encounter
--- OUTSIDE RECORDS SUMMARY | 2025-02-05 13:41 | XMS_ITS | Encounter Summary ---
Author Organization [employer] Address 75 [facility] 7t [place] [address] Care Team Providers Care Instructional Support Specialist Name Role Phone Fiorella Calvo Primary Care Provider [phone] Kolby Morin PharmD Unavailable [phone] Reason for Visit * Reason Onset Date Comments Med Refill 12/15/2023 Encounter Details Date Type Department Care Team (Late st Contact Info) Description 12/15/2023 Refill [facility] & PEDS [address] [place] [address] Fiorella Calvo ANP 230 [place] [address] Chronic left-sided low back pain with left-sided [...] Description 03/08/2025 2:00 PM EST Office Visit [facility] MEDICINE 230 [place] [address] Fiorella Calvo ANP [address] [place] [address] documented as of this encounter Goals Goal Patient Goal Type Associated Problems Recent Progress Patient-Stated? Author Quit using tobacco (cigarettes, smokeless, etc) Tobacco Use No Kobly Morin, Love documented as of this encounter Visit Diagnoses Diagnosis Chronic left-sided low back pain with left-sided sciatica Diabetic polyneuropathy associated with type 2 diabetes mellitus (HCC) Anxiety Anxiety state, unspecified documented in this encounter Additional Health Concerns Assessment Noted Time PHQ-9 Depression Total Score: 20 024 9:15 AM EDT documented as of this encounter Care Teams Instructional Support Specialist Relationship Specialty Start Date End Date Fiorella Calvo ANP [address] [place] [address] PCP - General Family Medicine 11/04/20 Kolby Morin, Love [address] [place] [address] Pharmacist Internal Medicine 08/19/23 documented as of this encounter
--- OUTSIDE RECORDS SUMMARY | 2025-02-05 13:41 | XMS_ITS | Encounter Summary ---
Author Organization [employer] [facility] Address 75 [facility] 7t [place] [address] Care Team Providers Care Appetizer Packer Name Role Phone Fiorella Calvo Primary Care Provider [phone] Kolby Morin PharmD Unavailable [phone] Encounter Details Date Type Department Care Team (Late st Contact Info) Description 11/05/2023 Orders Only [facility] MEDICINE 230 [place], [place] [phone] Fiorella Calvo ANP 230 [place] [address] Social History Tobacco Use Types Packs/Day Years [...] Description 03/08/2025 2:00 PM EST Office Visit [facility] MEDICINE 230 [place] [address] Fiorella Calvo ANP 230 [place] [address] documented as of this encounter Goals Goal Patient Goal Type Associated Problems Recent Progress Patient-Stated? Author Quit using tobacco (cigarettes, smokeless, etc) Tobacco Use No Kolby Morin, Love documented as of this encounter Visit Diagnoses Not on filedocumented in this encounter Additional Health Concerns Assessment Noted Time PHQ-9 Depression Total Score: 20 024 9:15 AM EDT documented as of this encounter Care Teams Appetizer Packer Relationship Specialty Start Date End Date Fiorella Calvo ANP [address] [place] [address] PCP - General Family Medicine 11/04/20 Kolby Morin, PharmD [address] [place] [address] Pharmacist Internal Medicine 08/19/23 documented as of this encounter
--- OUTSIDE RECORDS SUMMARY | 2025-02-05 13:41 | XMS_ITS | Encounter Summary ---
Author Organization [employer] Address 75 [facility] 7t [place] [address] Care Team Providers Care Learning Solutions Specialist Name Role Phone Fiorella Calvo Primary Care Provider [phone] Kolby Morin PharmD Unavailable [phone] Reason for Visit * Reason Onset Date Comments Med Refill 12/22/2024 Encounter Details Date Type Department Care Team (Late st Contact Info) Description 12/22/2024 Refill [facility] MEDICINE 230 [place], [place] [phone] Fiorella Calvo ANP 230 [place] [address] Type 2 diabetes mellitus with hyperlipidemia (HCC); [...] Description 03/08/2025 2:00 PM EST Office Visit [facility] MEDICINE [address] [place] [address] Fiorella Calvo ANP [address] [place] [address] documented as of this encounter Goals Goal [...] documented as of this encounter Care Teams Learning Solutions Specialist Relationship Specialty Start Date End Date Fiorella Calvo ANP 230 [place] [address] PCP - General Family Medicine 11/04/20 Kolby Morin, KariD [address] [place] [address] Pharmacist Internal Medicine 08/19/23 documented as of this encounter
--- OUTSIDE RECORDS SUMMARY | 2025-02-05 13:41 | XMS_ITS | Encounter Summary ---
Author Organization [employer] Address [address] [place] [address] 7 [place] [address] Care Team Providers Care Sectionizer Name Role Phone Fiorella Calvo Primary Care Provider [phone] Kolby Morin PharmD Unavailable [phone] Reason for Visit * Reason Onset Date Comments Med Refill 05/25/2024 Encounter Details Date Type Department Care Team (Late st Contact Info) Description 05/25/2024 Refill [facility] MEDICINE 230 [place], [place] [phone] Jyoti Melendez NP 230 [place] [address] Type 2 diabetes mellitus with hyperlipidemia (CMS/HCC) ([facility]/HCC); Diabetic polyneuropathy associated with type [...] Description 03/08/2025 2:00 PM EST Office Visit [facility] MEDICINE 230 [place] [address] Fiorella Calvo ANP 230 [place] [address] documented as of this encounter Goals Goal [...] documented as of this encounter Care Teams Sectionizer Relationship Specialty Start Date End Date Fiorella Calvo ANP 230 [place] [address] PCP - General Family Medicine 11/04/20 Kolby Morin, Love 230 [place] [address] Pharmacist Internal Medicine 08/19/23 documented as of this encounter
--- OUTSIDE RECORDS SUMMARY | 2025-02-05 13:41 | XMS_ITS | Encounter Summary ---
Author Organization [employer] [facility] Address [address] [place] [address] 7t [place] [address] Care Team Providers Care Tablet Repair Name Role Phone Fiorella Calvo Primary Care Provider [phone] Kolby Morin PharmD Unavailable [phone] Reason for Visit * Reason Onset Date Comments Returning call 10/28/2023 Encounter Details Date Type Department Care Team (Late st Contact Info) Description 10/28/2023 Telephone [facility] MEDICINE 230 [place], [place] [phone] Fiorella Calvo ANP 230 [place] [address] Returning call Social History Tobacco Use Types [...] at this time. LVM introducing herself from [facility] CM Department. Requested call back. Please contact pt at [phone]. (Upper Sorbian Speaker) documented in this encounter Plan of Treatment Upcoming Encounters Date Type Department Care Team (Late st Contact Info) Description 03/08/2025 2:00 PM EST Office Visit [facility] MEDICINE 230 [place] [address] Fiorella Calvo ANP [address] [place] [address] documented as of this encounter Goals Goal Patient Goal Type Associated Problems Recent Progress Patient-Stated? Author Quit using tobacco (cigarettes, smokeless, etc) Tobacco Use No Kolby Morin, Love documented as of this encounter Visit Diagnoses Not on filedocumented in this encounter Additional Health Concerns Assessment Noted Time PHQ-9 Depression Total Score: 20 024 9:15 AM EDT documented as of this encounter Care Teams Tablet Repair Relationship Specialty Start Date End Date Fiorella Calvo ANP [address] [place] [address] PCP - General Family Medicine 11/04/20 Kolby Morin PharmD [address] [place] [address] Pharmacist Internal Medicine 08/19/23 documented as of this encounter
--- OUTSIDE RECORDS SUMMARY | 2025-02-05 13:41 | XMS_ITS | Encounter Summary ---
Author Organization [employer] Address [address] [facility] 7t [place] [address] Care Team Providers Care Senior Interactive Producer Name Role Phone Fiorella Calvo Primary Care Provider [phone] Kolby Morin PharmD Unavailable [phone] Encounter Details Date Type Department Care Team ([facility] st Contact Info) Description 01/11/2025 Results Follow-Up [facility] MEDICINE 230 [place], [place] [phone] Fiorella Calvo ANP [address] [place] [address] CT Abdomen Pelvis w/ Contrast Social History [...] the past 12 months, has t he [employer] gas, oil or water company threatened to [...] Description 03/08/2025 2:00 PM EST Office Visit [facility] MEDICINE 230 [place] [address] Fiorella Calvo ANP [address] [place] [address] documented as of this encounter Goals Goal Patient Goal Type Associated Problems Recent Progress Patient-Stated? Author Quit using tobacco (cigarettes, smokeless, etc) Tobacco Use Kolby Liu, PharmD documented as of this encounter Visit Diagnoses Not on filedocumented in this encounter Additional Health Concerns Assessment Noted Time PHQ-9 Depression Total Score: 26 025 11:43 AM EST documented as of this encounter Care Teams Senior Interactive Producer Relationship Specialty Start Date End Date Fiorella Calvo ANP 230 [place] [address] PCP - General Family Medicine 11/04/20 Kolby Morin, PharmD 230 [place] [address] Pharmacist Internal Medicine 08/19/23 documented as of this encounter
--- OUTSIDE RECORDS SUMMARY | 2025-02-05 13:41 | XMS_ITS | Encounter Summary ---
Author Organization [employer] Address [address] [facility] 7t [place] [address] Care Team Providers Care Hooker Inspector Name Role Phone Fiorella Calvo Primary Care Provider [phone] Kolby Morin PharmD Unavailable Reason for Visit * Reason Onset Date Comments Med Refill 05/09/2024 Encounter Details Date Type Department Care Team (Late st Contact Info) Description 05/09/2024 Refill [facility] MEDICINE 230 [place], [place] [phone] Fiorella Calvo ANP 230 [place] [address] Type 2 diabetes mellitus with hyperlipidemia ([facility]/HCC) ([facility]) Social History Tobacco Use Types Packs/Day [...] Description 03/08/2025 2:00 PM EST Office Visit [facility] MEDICINE [address] [place] [address] Fiorella Calvo ANP 230 [place] [address] documented as of this encounter Goals Goal [...] documented as of this encounter Care Teams Hooker Inspector Relationship Specialty Start Date End Date Fiorella Calvo ANP [address] [place] [address] PCP - General Family Medicine 11/04/20 Kolby Morin, PharmD [address] [place] [address] Pharmacist Internal Medicine 08/19/23 documented as of this encounter
--- OUTSIDE RECORDS SUMMARY | 2025-02-05 13:41 | XMS_ITS | Patient Health Record ---
Author Organization [facility] Address [facility] [place] [address] Care Team Providers Care Consulting Solution Manager Name Role Phone OMAYRA SIEGEL Primary Care Provider Allergies No Known Allergies Reason For Referral No Information Medications Medication SIG (Take, Route, Frequency, Duration) Notes Start Date End Date Status Jentadueto XR 2.5-1000 MG Tablet Extended Release 24 Hour 1 tablet with a meal Orally twice a day; Duration: 30 day(s) 06/23/2020 Active Lisinopril 2.5 MG Tablet 1 tablet Orally Once a day; Duration: 30 day(s) 05/07/2020 Active Jentadueto 2.5-1000 MG Tablet 2 tablet Orally once a day; Duration: 30 days 03/10/2020 Not-Taking/PRN Ferrous Sulfate 325 (65 Fe) MG Tablet Delayed Release 1 tablet Orally twice a day; Duration: 30 days 03/10/2020 Active Gentamicin Sulfate 0.3 % Solution 1 drop into affected eye Ophthalmic every 4 hrs 10/16/2019 Not-Taking/PRN Lopid 600 MG Tablet 1 tablet 30 minutes before morning and evening meals Orally Twice a day; Duration: 30 day(s) 12/14/2020 Not-Taking/P RN glipiZIDE 5 MG Tablet 1 tablet 30 minute s before breakfast Orally Once a day; Duration: 30 day(s) 12/14/2020 Not-Taking/P RN Gabapentin 100 MG Capsule 1 capsule Orally before bedtime; Duration: 30 day(s) 07/17/2021 Active Lantus SoloStar 100 UNIT/ML Solution Pen-injector 10 units Subcutaneous at 9:00 PM; Duration: 30 days 07/17/2021 Active Pen Williamson 516 31G X 8 MM Miscellaneous as directed SQ once daily; Duration: 30 days 07/17/2021 Active Actos 15 MG Tablet 1 tablet Orally Once a day D/C Glipizide; Duration: 30 day(s) 06/01/2021 Active Tricor 145 MG Tablet 1 tablet Orally Onc e a day D/C Lopid; Duration: 30 days 06/01/2021 Active Immunizations Vaccine Route Administration Date Status Comme [facility] ADM SARSCV2 30MCG TRS-SUCR B (Tapon dariel) IM Intramuscular 05/19/2021 Administered [employer]inn[employer] COVID-19 2da dosis IM Intramuscular 12/08/2020 Administered Social History Tobacco Use: Social History Observation Description Date Details (start date - stop date) Current Smoker NA - NA Social History COVID-19 Social Info Question Answer Notes [place] COVID-19 Fecha 08/08/2021 Presenta algun sintoma: [place] Se hayes realizado recientement e la prueba rapida o molecular para el COVID 19 No Conoce a alguien que haya si do positivo al COVID-19 No Hayes participado de eventos pu blicos, sociales o familiares en los ultimos 14 luna Yes Cuando [employer], [facility] [facility] [place] viajado fuera de [place] o hayes estado en contacto con alguien que haya estado fuera de [place] en los pasados 14 luna No Se hayes vacunado contra el COVID-19 3 dosis SAY Media SIM History Social Info Question Answer Notes Estado nutricional Siguiente ..Normal SIM Social History Se realiza cernimiento de dolor Yes Paciente expresa tener dolor No Sexual Orientation Straight (not lesbian or cash) Gender Identity Female Drug use No Household As follows Jovita de dependientes 0 Cuantos viven en la casa? 1 ..Ultimo nivel escolar 7 ..Vivienda Solo(a) ..Sospecha de maltrato No ..Viaje reciente fuera de [place] <2 meses No Nececidades para comunicacion o acomodo Ninguna Transfusion/inmunisaciones Siguiente ..Transfusiones de yarelis Si ..Reaccion a transfusion No ..Inmunizacion Desconoce ..Inmunizacion Tetano Desconce Paciente o familiar comprend e requeridos e instrucciones de maciel doctor? Yes Paciente expresa trinity pa ra el cumplimiento de maciel tratamiento No Se realizo cernimiento de depresion Yes Cual PHQ 2 Fec Puntuacion 0 Se realiza Audit C Yes Fec Se realizo cernimiento cancer colorectal Yes Fec Proxima prueba Se realizo cernimento cancer cervical Yes Fec Proxima prueba Se requiere resultado de prueba No Se realizo cernimiento cancer de mama Yes Fec Proxima prueba Se realizo cernimiento de tabaco Yes Se refiere a consejero de substancias o Psicologo No Sexual History: Social Info Question Answer Notes Details of Sexual History Are you sexually active? Yes Are you having any sexual problems? No Have you had any sexually transmitted diseases ( STDs)? No How many sexual partners have you had? 1 Sexual Abuse History: none Sexual History Had sex in the past 12 months (vaginal, oral, or anal)? Yes with Men only Use protection? No Have you ever had a Sexually transmitted disease ? No Last menstrual period 10/2020 Drugs/Alcohol: Social Info Question Answer Notes Alcohol Screen (Audit-C) Did you have a drink containing alcohol in the past year? Yes Points 0 Interpretation Negative Drugs Have you used drugs other than those for medical reasons in the past 12 months? No Caffeine Intake: none Tobacco Use: Social Info Question Answer Notes Tobacco Use/Smoking Are you a current smoker How often do you smoke cigarettes? every day How many cigarettes a day do you smoke? 11-20 Tobacco use other than smoking: Are you an other tobac co user? Yes Additional Details Category Social Info Options Details Drugs/Alcohol: Do you smoke marijuana? De nies Do you drink alcohol? Socially Section Notes: WISEMAN RN, BSN Lic. [id number], BRADY Castillo 10/16/2019 03:44:18 PM > JOSE ARMANDO DIAZ RN, BSN Lic. [id number], NATALY M 07/06/2021 01:30:25 PM > JOSE ARMANDO DIAZ RN, BSN Lic. [id number], [facility] M 06/14/2021 08:19:05 AM > SPIKE NEAL RN, ADN Lic. [id number], KASSIDY 06/10/2021 02:03:29 PM > JAYNA RICHARDS RN, ADN Lic. [id number], EWA 06/01/2021 08:05:14 PM > JOSE ARMANDO DIAZ RN, BSN Lic. [id number], [facility] 01/26/2021 10:02:26 AM > JOSE ARMANDO DIAZ RN, BSN Lic. [id number], [facility] 12/14/2020 09:34:35 AM > JOSE ARMANDO DIAZ RN, BSN Lic. [id number], [facility] 12/03/2020 10:16:04 AM > JOSE ARMANDO DIAZ RN, BSN Lic. [id number], [facility] 06/23/2020 10:18:09 AM > JOSE ARMANDO DIAZ RN, BSN Lic. [id number], [facility] M 04/07/2020 11:18:34 AM > JOSE ARMANDO DIAZ RN, BSN Lic. [id number], [facility] 03/16/2020 11:21:17 AM > JOSE ARMANDO DIAZ RN, BSN Lic. [id number], [facility] M 03/10/2020 11:43:13 AM > TINA BATES RN, BSN Lic. [id number], LUCIA 11/06/2019 07:58:39 AM > WISEMAN RN, BSN Lic. [id number], BRADY B 10/16/2019 03:44:18 PM > JOSE ARMANDO DIAZ RN, BSN Lic. [id number], NATALY M 06/28/2021 11:10:25 AM > JOSE ARMANDO DIAZ RN, BSN Lic. [id number], NATALY Cuellar 04/25/2020 09:59:43 AM > OPAL TAYLOR RN, BSN Li c. [id number] 08/08/2021 01:15:14 PM > BRANDON MEYER RN, BSN L ic. [id number] 07/17/2021 01:50:44 PM > JAYNA RICHARDS RN, ADN Lic. 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.29) Active confirmed Problem Diabetic autonomic neuropathy due to type 2 diabetes mellitus (477118030) Type 2 diabetes mellitus with diabetic autonomic (poly)neuropathy (E11.43) Active confirmed Problem Morbid obesity (disorder) (480951083) Morbid (severe) obesity due to excess calories (E66.01) Active confirmed Problem Chronic pain (51620050) Other chronic pain (G89.29) Active confirmed Problem Mild intermittent asthma (452205826) Mild intermittent asthma, uncomplicated (J45.20) Active confirmed Problem Human papilloma viru s deoxyribonucleic acid test positive, high risk on vaginal specimen (178081254769326) Cervical high risk human papillomavirus (HPV) DNA test positive (R87.810) Active confirmed Problem Abnormal findings on diagnostic imaging of breast (584673740) Other abnormal and inconclusive findings on diagnostic imaging of breast (R92.8) Active confirmed Problem Hyperglycemia due to type 2 diabetes mellitus (839342560365350) Type 2 diabetes mellitus with hyperglycemia (E11.65) Active confirmed Problem Hyperglycemia due to type 2 diabetes mellitus (464674261982833) Type 2 diabetes mellitus with hyperglycemia, without long-term current use of insulin (E11.65) Active confirmed Problem Smoker (78348585) Smoker (F17.200) Active confi rmed Problem Hypertriglyceridemia (069588082) Hypertriglyceridemia (E78.1) Active confirmed Problem Oropharyngeal dysphagia (08731773) Oropharyngeal dysphagia (R13.12) Active confirmed Problem Obese class II (362613188560593) BMI 39.0-39.9,adult (Z68.39) Active confirmed Problem Hyperglycemia due to type 2 diabetes mellitus (751342160708388) Uncontrolled type 2 diabetes mellitus with hyperglycemia (E11.65) Active confirmed Problem Type II diabetes mellitus uncontrolled (823477628) Diabetes type 2, uncontrolled (E11.65) Active confirmed Plan Of Treatment Pending Test Test Name Order Date US BREAST BILATERAL 07/14/2018 HERPES I, II IGM 05/15/2021 URINE [id number] 05/15/2021 Future Test Test Name Order Date HCG QUAL () 01/05/2019 Insurance Providers Payer Name Payer Address Payer Phone Subscriber Number Group Number Insured Name Patient Relationship to Insured Coverage Start Date Coverage End Date TRIPLE S CAP PSG [address] [place] [address] [id number] F Teena Garza Self - patient is the insured 9 2 Medical (General) History Medical History History ICD Code ANEMIA VIRUS DE PAPILOMA .Hipertension .Diabetes Other headache syndrome G44.89 Type 2 diabetes mellitus with hyperglyce shama E11.65 Hospitalization History Reason Date(Month/Year) LEONARD DE EMERGENCIAS (ASMA) 10/2018
--- OUTSIDE RECORDS SUMMARY | 2025-02-05 13:41 | XMS_ITS | Encounter Summary ---
Author Organization [employer] Address [address] [facility] 7t [place] [address] Care Team Providers Care Larder Cook Name Role Phone Fiorella Calvo Primary Care Provider [phone] Kolby Morin PharmD Unavailable [phone] Reason for Visit * Reason Onset Date Comments Med Refill 03/23/2024 Encounter Details Date Type Department Care Team (Late st Contact Info) Description 03/23/2024 Refill [facility] MED[facility]INE [address] [place], [place] [phone] Fiorella Calvo ANP [address] [place] [address] Type 2 diabetes mellitus with hyperlipidemia (CMS/HCC) ([facility]/HCC); Diabetic polyneuropathy associated with type 2 [...] Description 03/08/2025 2:00 PM EST Office Visit [facility] [address] [place] [address] Fiorella Calvo ANP [address] [place] [address] documented as of this encounter Goals Goal [...] documented as of this encounter Care Teams Larder Cook Relationship Specialty Start Date End Date Fiorella Calvo ANP [address] [place] [address] PCP - General Family Medicine 11/04/20 Kolby Morin, Love [address] [place] [address] Pharmacist Internal Medicine 08/19/23 documented as of this encounter
--- OUTSIDE RECORDS SUMMARY | 2025-02-05 13:41 | XMS_ITS | Encounter Summary ---
Author Organization [employer] Address [address] [facility] 7t [place] [address] Care Team Providers Care Math Interventionist Name Role Phone Fiorella Calvo Primary Care Provider [phone] Kolby Morin PharmD Unavailable [phone] Reason for Visit * Reason Comments Med Refill Encounter Details Date Type Department Care Team (Late st Contact Info) Description 01/21/2025 Refill [facility] [address] [place], [place] [phone] Fiorella Calvo ANP [address] [place] [address] Chronic pain of left knee; Osteoarthritis of [...] 2:00 PM EST Office Visit [facility] [address] [place] [address] Fiorella Calvo ANP [address] [place] [address] documented as of this encounter Goals Goal [...] documented as of this encounter Care Teams Math Interventionist Relationship Specialty Start Date End Date Fiorella Calvo ANP [address] [place] [address] PCP - General Family Medicine 11/04/20 Kolby Morin, KariD [address] [place] [address] Pharmacist Internal Medicine 08/19/23 documented as of this encounter
--- OUTSIDE RECORDS SUMMARY | 2025-02-05 13:41 | XMS_ITS | Encounter Summary ---
Author Organization [employer] Address [address] [facility] 7 [place] [address] Care Team Providers Care Technical Writer And Editor Name Role Phone Fiorella Calvo Primary Care Provider Kolby Morin PharmD Unavailable [phone] Reason for Visit * Reason Onset Date Comments PT1 06/30/2024 Encounter Details Date Type Department Care Team (Late st Contact Info) Description 06/30/2024 Telephone [facility] MED[facility]INE [address] [place], [place] [phone] Fiorella Calvo ANP [address] [place], [place] [phone] PT1 Social History Tobacco Use Types Packs/Day [...] Y/N: Yes Provider name or facility name: [facility] - [address] [place] [address] Escort needed: Y/N: No Do you have a wheelchair: Y/N: No If yes- Manual or electric: N/A Visits: (2x monthly) documented in this encounter Plan of Treatment Upcoming Encounters Date Type Department Care Team ([facility] Contact Info) Description 03/08/2025 2:00 PM EST Office Visit [facility] [address] [place] [address] Fiorella Calvo ANP [address] [place] [address] documented as of this encounter Goals Goal Patient Goal Type Associated Problems Recent Progress Patient-Stated? Author Quit using tobacco (cigarettes, smokeless, etc) Tobacco Use No Kolby Mroin, PharmSonny documented as of this encounter Visit Diagnoses Not on filedocumented in this encounter Additional Health Concerns Assessment Noted Time PHQ-9 Depression Total Score: 26 025 11:43 AM EST documented as of this encounter Care Teams Technical Writer And Editor Relationship Specialty Start Date End Date Fiorella Calvo ANP [address] [place] [address] PCP - General Family Medicine 11/04/20 Kolby Morin, PharmD [address] [place] [address] Pharmacist Internal Medicine 08/19/23 documented as of this encounter
--- OUTSIDE RECORDS SUMMARY | 2025-02-05 13:41 | XMS_ITS | Encounter Summary ---
Author Organization [employer] Address [address] [facility] 7 [place] [address] Care Team Providers Care Helium Arc Welder Name Role Phone Fiorella Calvo Primary Care Provider [phone] Kolby Morin PharmD Unavailable [phone] Reason for Visit * Reason Onset Date Comments Med Refill 06/28/2024 Encounter Details Date Type Department Care Team (Late st Contact Info) Description 06/28/2024 Refill [facility] MED[facility]INE [address] [place], [place] [phone] Fiorella Calvo ANP [address] [place] [address] Type 2 diabetes mellitus with hyperlipidemia (CMS/HCC) ([facility]/HCC); Diabetic polyneuropathy associated with type [...] Office Visit [facility] [address] [place] [address] Fiorella Calvo ANP [address] [place] [address] documented as of this encounter Goals Goal [...] documented as of this encounter Care Teams Helium Arc Welder Relationship Specialty Start Date End Date Fiorella Calvo ANP [address] [place] [address] PCP - General Family Medicine 11/04/20 Kolby Morin, Love [address] [place] [address] Pharmacist Internal Medicine 08/19/23 documented as of this encounter
--- OUTSIDE RECORDS SUMMARY | 2025-02-05 13:41 | XMS_ITS | Encounter Summary ---
Author Organization [employer] Address [address] [facility] 7t [place] [address] Care Team Providers Care Registered Dietician Name Role Phone Fiorella Calvo Primary Care Provider [phone] Kolby Morin PharmD Unavailable [phone] Reason for Visit * Reason Onset Date Comments Med Refill 01/25/2025 Encounter Details Date Type Department Care Team (Late st Contact Info) Description 01/25/2025 Telephone [facility] MED[facility] 230 [place], [place] [phone] Fiorella Calvo ANP [address] [place], [place] [phone] Med Refill Social History Tobacco Use Types [...] encounter Miscellaneous Notes * Telephone Encounter - Vikki Hilliard RN - 01/28/2025 12:53 PM EST Call received from Camila [place] [facility] [place] stating courtesy call to report borderline T- Spot. documented in this encounter Plan of Treatment Upcoming Encounters Date Type Department Care Team (Late st Contact Info) Description 03/08/2025 2:00 PM EST Office Visit [facility] [address] [place] [address] Fiorella Calvo ANP [address] [place] [address] documented as of this encounter Goals Goal [...] documented as of this encounter Care Teams Registered Dietician Relationship Specialty Start Date End Date Fiorella Calvo ANP [address] [place] [address] PCP - General Family Medicine 11/04/20 Kolby Morin, Love [address] [place] [address] Pharmacist Internal Medicine 08/19/23 documented as of this encounter
--- OUTSIDE RECORDS SUMMARY | 2025-02-05 13:41 | XMS_ITS | Encounter Summary ---
Author Organization [employer] Address [address] [facility] 7 [place] [address] Care Team Providers Care General Counselor Name Role Phone Fiorella Calvo Primary Care Provider [phone] Kolby Morin PharmD Unavailable [phone] Reason for Visit * Reason Onset Date Comments Pt-1 08/12/2024 Encounter Details Date Type Department Care Team (Late st Contact Info) Description 08/12/[address] [facility] MEDICINE [address] [place], [place] [phone] Fiorella Calvo ANP 230 [place], [place] [phone] Pt-1 Social History Tobacco Use Types Packs/Day [...] Y/N: Yes Provider name or facility name: [facility] Facility Address: [address] [place] [address] Escort needed: Y/N: No Do you have a wheelchair: Y/N: No If yes- Manual or electric: N/A Visits: twice a month documented in this encounter Plan of Treatment Upcoming Encounters Date Type Department Care Team (Late st Contact Info) Description 03/08/2025 2:00 PM EST Office Visit [facility] MEDICINE [address] [place] [address] Fiorella Calvo ANP [address] [place] [address] documented as of this encounter Goals Goal Patient Goal Type Associated Problems Recent Progress Patient-Stated? Author Quit using tobacco (cigarettes, smokeless, etc) Tobacco Use No Kolby Morin, Love documented as of this encounter Visit Diagnoses Not on filedocumented in this encounter Additional Health Concerns Assessment Noted Time PHQ-9 Depression Total Score: 26 025 11:43 AM EST documented as of this encounter Care Teams General Counselor Relationship Specialty Start Date End Date Fiorella Calvo ANP [address] [place] [address] PCP - General Family Medicine 11/04/20 Kolby Morin, PharmD [address] [place] [address] Pharmacist Internal Medicine 08/19/23 documented as of this encounter
--- OUTSIDE RECORDS SUMMARY | 2025-02-05 13:41 | XMS_ITS | Clinical Summary ---
Author Organization [facility] Address [address] [place] [address] Phone Care Team Providers Care Natural Resources Extension Educator Name Role Phone Lorna Ragsdale BANKRUPTCY LEGAL ASSISTANT Primary Care Provider [phone] Encounters Date Type Department Care Team Description 01/20/2025 2:57 PM EST - 01/20/2025 11:59 PM EST Hospital Encounter [facility] PET Scan [address] [place] [address] Other nonspecific abnormal finding of lung field Discharge Disposition: Home or Self Care from Last 3 Months Social History Tobacco [...] Screening 04/11/2023 Depression Screening 03/18/2024 COVID-19 Vaccine (2 - 2024-2 6 season) 2024 12/11/2023 Influenza Vaccine (#1) 2024 4, 11/29/2017 Diabetes: Annual Urine Albumin-Creatinine Ratio (uACR) 01/20/2025 Hypertension/CHF/CAD Annual BMP Blood Test 01/20/2025 Diabetes: Blood Sugar Contro l Test (HGBA1C) 07/13/2025 01/12/2025 Cholesterol Screening (Lipid Panel) 06/11/2029 06/11/2024 RSV Immunization Adult Patients (1 - 1-dose 75+ series) 2053 HIV Screening Completed 05/16/2023 Hepatitis C Screening Completed 05/16/2023 HIB Vaccines Aged Out No longer eligi [...] Signed Date: 01/25/2025 05:34 ET Workstation ID: [id number] Transcribed By: Self Edit Transcribed Date: 01/25/2025 [...] abdomen and pelvis dated December 2024 from [facility]. FINDINGS: HEAD AND NECK: Nonspecific focal central [...] chest abdomen andpelvis dated December 2024 from [facility]. FINDINGS: HEAD AND NECK: Nonspecific focal central [...] Signed Date: 01/25/2025 05:34 ET Workstation ID: [id number] Transcribed By: Self Edit Transcribed Date: 01/25/2025 05:09 ET Fiorella Calvo NP IMG NM PROCEDURES Final Result from Last 3 Months Insurance MEDICAID - [place] Care Teams Natural Resources Extension Educator Relationship Specialty Start Date End Date Lorna Ragsdale FNP [address] [place] [address] PCP - General Family Medicine 02/05/25
--- OUTSIDE RECORDS SUMMARY | 2025-02-05 13:41 | XMS_ITS | Encounter Summary ---
Author Organization [employer] Address [address] [facility] 7t [place] [address] Care Team Providers Care Mathematics Instructor Name Role Phone Fiorella Calvo Primary Care Provider [phone] Kolby Morin PharmD Unavailable [phone] Reason for Visit * Reason Onset Date Comments Med Refill 12/18/2024 Encounter Details Date Type Department Care Team (Late st Contact Info) Description 12/18/2024 Refill [facility] MEDICINE [address] [place], [place] [phone] Fiorella Calvo ANP [address] [place] [address] Type 2 diabetes mellitus with hyperlipidemia (HCC); [...] Description 03/08/2025 2:00 PM EST Office Visit [facility] [address] [place] [address] Fiorella Calvo ANP [address] [place] [address] documented as of this encounter Goals Goal [...] documented as of this encounter Care Teams Mathematics Instructor Relationship Specialty Start Date End Date Fiorella Calvo ANP [address] [place] [address] PCP - General Family Medicine 11/04/20 Kolby Morin, Love [address] [place] [address] Pharmacist Internal Medicine 08/19/23 documented as of this encounter
--- OUTSIDE RECORDS SUMMARY | 2025-02-05 13:41 | XMS_ITS | Encounter Summary ---
Author Organization [email or web address] Address [address] [facility] 7 [place] [address] Care Team Providers Care Conventional Mortgage Underwriter Name Role Phone Fiorella Calvo Primary Care Provider [phone] Kolby Morin PharmD Unavailable [phone] Reason for Visit * Reason Comments Med Refill Encounter Details Date Type Department Care Team ([facility] st Contact Info) Description 03/27/2024 Refill [facility] MEDICINE [address] [place], [place] [phone] Fiorella Calvo ANP [address] [place] [address] Type 2 diabetes mellitus with hyperlipidemia (CMS/HCC) ([facility]/HCC); Diabetic polyneuropathy associated with type 2 diabetes mellitus ([facility]/HCC) Social History Tobacco Use Types Packs/Day Years [...] Description 03/08/2025 2:00 PM EST Office Visit [facility] MEDICINE [address] [place] [address] Fiorella Calvo ANP [address] [place] [address] documented as of this encounter Goals Goal [...] documented as of this encounter Care Teams Conventional Mortgage Underwriter Relationship Specialty Start Date End Date Fiorella Calvo ANP [address] [place] [address] PCP - General Family Medicine 11/04/20 Kolby Morin, KariD [address] [place] [address] Pharmacist Internal Medicine 08/19/23 documented as of this encounter
--- OUTSIDE RECORDS SUMMARY | 2025-02-05 13:41 | XMS_ITS | Clinical Summary ---
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 eligi [...] etc) Tobacco Use No Kolby Morin, Love Help patients manage their type 2 diabetes [...] disease No Kristen Siddiqui RN Patient has diabetic [...] Care Plan Weekly blood pressure task No Adilia Ragsdaleupe, PLANT PULLER Weekly blood pressure task Care Plan Weekly blood pressure task No Okclementineo Lorna, PLANT PULLER Weekly blood pressure task Care Plan Weekly blood pressure task No Okclementineo Lorna, PLANT PULLER Patient has chronic kidney disease Care Plan Patient has chronic kidney disease No Okhipo Lorna, PLANT PULLER Patient has chronic kidney disease Care Plan Patient has chronic kidney disease No Okhipo Lorna, PLANT PULLER Patient has chronic kidney disease Care Plan Patient has chronic kidney disease No Okclemetnineo Lorna, PLANT PULLER Patient has diabetic neuropathy Care Plan Patient has diabetic neuropathy No Okhipo, Lorna, PLANT PULLER Patient has diabetic neuropathy Care Plan Patient has diabetic neuropathy No Okhipo, Lorna, PLANT PULLER Patient has diabetic neuropathy Care Plan Patient has diabetic neuropathy No Okhipo, Lorna, PLANT PULLER Weekly blood pressure task Care Plan Weekly blood pressure task No Braxton Deana Weekly blood pressure task Care Plan Weekly blood pressure task No Braxton Deana Weekly blood pressure task Care Plan Weekly blood pressure task No Braxton Deana Patient has chronic kidney disease Care Plan Patient has chronic kidney disease No Braxton, Deana Patient has chronic kidney [...] Care Plan Patient has diabetic neuropathy No Braxton, Deana Weekly blood pressure task Care Plan Weekly blood pressure task No Carly Watt Weekly blood pressure task Care Plan Weekly blood pressure task No Mayela Wattandra Weekly blood pressure task Care Plan Weekly blood pressure task No Mayela Wattandra Patient has chronic kidney disease Care Plan Patient has chronic kidney disease No Carly Watt Patient has chronic kidney disease Care Plan Patient has chronic kidney disease No Shukri Carly Patient has chronic kidney disease Care Plan Patient has chronic kidney disease No Mayela Wattandra Patient has diabetic neuropathy Care Plan Patient has diabetic neuropathy No Carly Watt Patient has diabetic neuropathy Care Plan Patient has diabetic neuropathy No Carly Watt Patient has diabetic neuropathy Care Plan Patient has diabetic neuropathy No Shukri Carly Weekly blood pressure task Care Plan Weekly blood pressure task No Puia, Camila, PharmD Weekly blood pressure task Care Plan Weekly blood pressure task No Puia, Camila, PharmD Weekly blood pressure task Care Plan Weekly blood pressure task No Puia, Camila, PharmD Patient has chronic kidney disease Care Plan Patient has chronic kidney disease No Puia, Camila, PharmD Patient has chronic kidney disease Care Plan Patient has chronic kidney disease No Puia, Camila, PharmD Patient has chronic kidney disease Care Plan Patient has chronic kidney disease No Puia, Camila, PharmD Patient has diabetic neuropathy Care Plan Patient has diabetic neuropathy No PuiaAidanCamila, PharmD Patient has diabetic neuropathy Care Plan Patient has diabetic neuropathy No Aidan Turkyssa, PharmD Patient has diabetic neuropathy Care Plan Patient has diabetic neuropathy No Camila Turk PharmD Weekly blood pressure task Care Plan Weekly blood pressure task No Holland Burks MD Weekly blood pressure task Care Plan Weekly blood pressure task No Holland Burks MD Weekly blood pressure task Care Plan Weekly blood pressure task No Holland Burks MD Patient has chronic kidney disease Care Plan Patient has chronic kidney disease No Holland Burks MD Patient has chronic kidney disease Care Plan Patient has chronic kidney disease No Holland Burks MD Patient has chronic kidney disease Care Plan Patient has chronic kidney disease No Holland Burks MD Patient has diabetic neuropathy Care Plan Patient has diabetic neuropathy No Holland Burks MD Patient has diabetic neuropathy Care Plan Patient has diabetic neuropathy No Holland Burks MD Patient has diabetic neuropathy Care Plan Patient has diabetic neuropathy No Holland Burks MD Weekly blood pressure task Care Plan Weekly blood pressure task No Yoselin Pacheco LPN Weekly blood pressure task Care Plan Weekly blood pressure task No Yoselin Pacheco LPN Weekly blood pressure task Care Plan Weekly blood pressure task No Yoselin Pacheco COUNTERINTELLIGENCE SPECIALIST Patient has chronic kidney disease Care Plan Patient has chronic kidney disease No Yoselin Pacheco COUNTERINTELLIGENCE SPECIALIST Patient has chronic kidney disease Care Plan Patient has chronic kidney disease No Yoselin Pacheco COUNTERINTELLIGENCE SPECIALIST Patient has chronic kidney disease Care Plan Patient has chronic kidney disease No Yoselin Pacheco, COUNTERINTELLIGENCE SPECIALIST Patient has diabetic neuropathy Care Plan Patient has diabetic neuropathy No Yoselin Pacheco, COUNTERINTELLIGENCE SPECIALIST Patient has diabetic neuropathy Care Plan Patient has diabetic neuropathy No Yoselin Pacheco, COUNTERINTELLIGENCE SPECIALIST Patient has diabetic neuropathy Care Plan Patient has diabetic neuropathy No Yoselin Pacheco, COUNTERINTELLIGENCE SPECIALIST Weekly blood pressure task Care Plan Weekly blood pressure task No Lolis Adam ANP Weekly blood pressure task Care Plan Weekly blood pressure task No Lolis Adam ANP Weekly blood pressure task Care Plan Weekly blood pressure task No Lolis Adam ANP Patient has chronic kidney disease Care Plan Patient has chronic kidney disease No Lolis Adam ANP Patient has chronic kidney disease Care Plan Patient has chronic kidney disease No Lolis Adam ANP Patient has chronic kidney disease Care Plan Patient has chronic kidney disease No Lolis Adam ANP Patient has diabetic neuropathy Care Plan Patient has diabetic neuropathy No Lolis Adam ANP Patient has diabetic neuropathy Care Plan Patient has diabetic neuropathy No Lolis Adam ANP Patient has diabetic neuropathy Care Plan Patient has diabetic neuropathy No Lolis Adam ANP Weekly blood pressure task Care Plan Weekly blood pressure task No Lolis Adam ANP Weekly blood pressure task Care Plan Weekly blood pressure task No Lolis Adam ANP Weekly blood pressure task Care Plan Weekly blood pressure task No Lolis Adam ANP Patient has chronic kidney disease Care Plan Patient has chronic kidney disease No Lolis Adam ANP Patient has chronic kidney disease Care Plan Patient has chronic kidney disease No Lolis Adam ANP Patient has chronic kidney disease Care Plan Patient has chronic kidney disease No Lolis Adam ANP Patient has diabetic neuropathy Care Plan Patient has diabetic neuropathy No Loils Adam ANP Patient has diabetic neuropathy Care Plan Patient has diabetic neuropathy No Lolis Adam ANP Patient has diabetic neuropathy Care Plan Patient has diabetic neuropathy No Lolis Adam ANP Weekly blood pressure task Care Plan Weekly blood pressure task No Andria Barrios RN Weekly blood pressure task Care Plan Weekly blood pressure task No Andria Barrios RN Weekly blood pressure task Care Plan Weekly blood pressure task No Andria Barrios RN Patient has chronic kidney disease Care Plan Patient has chronic kidney disease No Andria Barrios RN Patient has chronic kidney disease Care Plan Patient has chronic kidney disease No Andria Barrios RN Patient has chronic kidney disease Care Plan Patient has chronic kidney disease No Andria Barrios RN Patient has diabetic neuropathy Care Plan Patient has diabetic neuropathy No Andria Barrios RN Patient has diabetic neuropathy Care Plan Patient has diabetic neuropathy No Andria Barrios RN Patient has diabetic neuropathy Care Plan Patient has diabetic neuropathy No Andria Barrios RN Procedures Procedure Name Priority Date/Time Associated Diagnosis Comments POCT GLUCOSE Routine 02/01/2025 9:26 AM EST Uncontrolled type 2 diabetes mellitus with hyperglycemia (HCC) POCT GLUCOSE Routine 01/28/2025 2:26 PM EST Uncontrolled type 2 diabetes mellitus with hyperglycemia (HCC) HEMOGLOBIN A1C Routine 01/25/2025 11:06 AM EST Cough with hemoptysis BASIC METABOLIC PANEL Routine 01/25/2025 11:06 AM EST Cough with hemoptysis APTT Routine 01/25/2025 11:06 AM EST Cough with hemoptysis PROTHROMBIN TIME-INR Routine 01/25/2025 11:06 AM EST Cough with hemoptysis T-SPOT(R).TB Routine 01/25/2025 11:06 AM EST Cough with hemoptysis METHYLMALONIC ACID Routine 01/25/2025 11 :06 AM EST Optic disc pallor, bilateral VITAMIN B12/FOLATE, SERUM PANEL Routine 01/25/2025 11:06 AM EST Optic disc pallor, bilateral COMPREHENSIVE METABOLIC PANEL Routine 01/25/2025 11:06 AM EST Optic disc pallor, bilateral CBC WITH AUTO DIFFERENTIAL Routine 01/25/2025 11:06 AM EST Optic disc pallor, bilateral TSH W/REFLEX TO FT4 Routine 01/25/2025 1 1:06 AM EST Menorrhagia with irregular cycle PET/CT BONE SKULL BASE TO MID THIGH [...] PM EDT US ABDOMEN LIMITED Routine 12/16/2024 3: 52 PM EDT XR CHEST 2 VIEWS Routine [...] Recently Relevant to Health Maintenance Results * (ABNORMAL) POCT Glucose (02/01/2025 9:26 AM EST) Only the most recent of5 resultswithin the time period is included. Pathologist [facility] Glucose Blood, POC 278(A) 60 - 200 mg/dL QC Media Lot # [id number] Lot# Expiration Date ,720,899 Blood Capillary blood specimen / Unknown 02/01/2025 9:26 AM EST Lorna Ragsdale PLANT PULLER POINT OF CARE TEST ENTER/EDIT ORDERABLES Final Result * Vitamin B12/Folate, Serum Panel (01/25/2025 11:06 AM EST) [facility] Vitamin B12 400 200 - 900 pg/mL [facility] Comment:NORMAL 200-900 PG/ML INDETERMINATE 160-199 PG/ML DEFICIENT < 160 PG/ML Folate 11.1 > or = 4.0 ng/mL [facility] Comment:Reference Values:> o r = 4.0 ng/mL< 4.0 ng/mL suggests folate deficiency Methotrexate, aminopterin and folinic acid(leucovorin) are chemotherapeutic agents whose molecularstructures are similar to folate; therefore, the Architectfolate assay cannot be used for patients using these drugs. Blood Venous blood specimen / Unknown 01/25/2025 11:06 AM EST 01/25/2025 1:22 PM EST us Evelia Godwin OD LAB BLOOD ORDERABLES Final Resu lt [facility] [address] [place] [phone] [phone] * (ABNORMAL) T-SPOT??.TB (01/25/2025 11:06 AM EST) Pathologist [facility] T Spot TB Borderli ne(A) Negative [facility] Comment:Results of T Spot TB called to Alcira Aguayo on 01/28/25at 1251 by HO.GALENSA.The patient's test result cannot be definitivelyclassified as positive or negative. Retesting of thepatient is recommended although there is no setguideline established for the time interval betweenan initial borderline result and a retest.The T- SPOT.TB is a diagnostic aid. If the test resultremains borderline upon retesting, other diagnosticsand/or epidemiologic information should be used tohelp determine the Mycobacterium tuberculosis infectionstatus of the patient.The T-SPOT.TB test is qualitative and results arereported as positive, borderline, or negative, giventhat the test controls perform as expected. In linewith the Centers for Disease Control and Prevention's2010 recommendation to report quantitative measurementsalongside the qualitative result, the laboratoryprovides spot counts for informational purposes only.The T-SPOT.TB test should not be interpreted as aquantitative test. TS PANEL A 0 [facility] TS PANEL B 7 [facility] Negative Control Passed [facility] Positive Control Passed [facility] Comment:For additional infor patricia, please refer tohttp://education.[employer]/faq/HNE805(This link is being provided for informational/educational purposes only.)THIS TEST WAS PERFORMED AT:[employer] [place] [address]EDMTODSGEOVANNY LOUISE MD,PHD 01/25/2025 11:0 6 AM EST 01/25/2025 1:22 PM EST [facility] LAB BLOOD ORDERABLES Edited Resu lt - Final [facility] [address] [place] [phone] * TSH W/Reflex to FT4 (01/25/2025 11:06 AM EST) TSH reflex Free T4 0.82 0.32 - 4.0 uIU/mL [facility] Blood Venous blood specimen / Unknown 01/25/2025 11:06 AM EST 01/25/2025 1:22 PM EST us Lolis Adam [facility] LAB BLOOD ORDERABLES Final Resul t [facility] [address] [place] [phone] * (ABNORMAL) CBC auto differential (01/25/2025 11:06 AM EST) White Blood Count 5.6 4.8 - 10.8 X10*3/uL [facility] Red Blood Count 5.66(H) 4.20 - 5.50 X10*6/uL [facility] Hemoglobin 13.3 12.0 - 16.0 g/dl [facility] Hematocrit 42.2 37.0 - 47.0 % [facility] Mean Corpuscular Volume 74.6(L) 80.0 - 98.0 fL [facility] Mean Corpuscular Hemoglobin 23.5(L) 27.0 - 33.0 pg [facility] Mean Corpuscular HGB Conc 31.5 31.0 - 35.0 g/dl [facility] Red Cell Distribution Width 18.6(H) 11.0 - 16.0 % [facility] Platelet Count 174 160 - 400 X10*3/uL [facility] Mean Platelet Volume 11.4 9.4 - 12.3 fL [facility] Neutrophils Percent Auto 62.3 45 - 73 % [facility] Imm Gran Pct Auto 0.4 0.0 - 0.4 % [facility] Lymphocytes Percent Auto 28.7 20 - 40 % [facility] Monocytes Percent Auto 5.3 2 - 11 % [facility] Eosinophils Percent Auto 2.1 0 - 4 % [facility] Basophils Percent Auto 1.2 0 - 2 % [facility] NRBC Pct Auto 0.0 0.0 - 0.2 /100WBC [facility] Neutrophils Absolute Auto 3.5 2.0 - 8.3 x10*3/uL [facility] Imm Gran Abs Auto 0.02 0.00 - 0.03 X10*3/uL [facility] Lymphocytes Absolute Auto 1.6 1.2 - 4.9 X10*3/uL [facility] Monocytes Absolute Auto 0.3 0.1 - 1.2 X10*3/uL [facility] Eosinophils Absolute Auto 0.1 0.0 - 0.4 X10*3/uL [facility] Basophils Absolute Auto 0.1 0.0 - 0.2 X10*3/uL [facility] NRBC Abs Auto 0.000 0.0 - 0.012 X10*3/uL [facility] Blood Venous blood specimen / Unknown 01/25/2025 11:06 AM EST 01/25/2025 1:22 PM EST us Evelia Sotomayoryue OD LAB BLOOD ORDERABLES Final Resu lt [facility] [address] [place] [phone] * Methylmalonic Acid (01/25/2025 11:06 AM EST) Methylmalonic Acid 131 55 - 335 nmol/L [facility] Comment: Serum methylmalonic acid (MMA) levels are used todiagnose and monitor several rare inborn errors ofmetabolism, including methylmalonic aciduria. Theenzymatic conversion of MMA to succinic acid requiresvitamin B12 (adenosyl-cobalamin) as a cofactor. SerumMMA levels are also used for assessing functionalvitamin B12 deficiency. Vitamin B12 is essential forfetal neurodevelopment, particularly early inpregnancy. Undiagnosed maternal vitamin B12 deficiencymay be associated with adverse / outcomes,such as neural tube defects and intrauterine growthrestriction.Re Pet utilized Multi-Modal Decomposition(MMD) analysis to establish first and second trimester-specific MMA reference intervals in , as givenbelow:MMA, First trimester (<13 wks gestation): 58-167 nmol/LMMA, Second trimester (13-23 wks gestation):63-241 nmol/LThis test was developed and its analytical performancecharacteristics have been determined by [employer]. It has not been cleared or approved by theFDA. This assay has been validated pursuant to the CLIAregulations and is used for clinical purposes.THIS TEST WAS PERFORMED AT:[employer] [place] [address]QGIIPDDGEOVANNY LOUISE MD,PHD Blood Venous blood specimen / Unknown 01/25/2025 11:06 AM EST 01/25/2025 1:22 PM EST Evelia Светланаyue OD LAB BLOOD ORDERABLES Final Resu lt Performing Organization Address [facility] Co de Phone Number [facility] [address] [place] [phone] * Partial Thromboplastin Time, Activated (APTT) (01/25/2025 11:06 AM EST) Partial Thromboplastin Time 28.5 26.7 - 34.1 SEC [facility] Blood Venous blood specimen / Unknown 01/25/2025 11:06 AM EST 01/25/2025 1:22 PM EST Lolis Adam ANP LAB BLOOD ORDERABLES Final Resul t Performing Organization Address [facility] [address] [facility] Co de Phone Number [facility] [address] [place] [phone] * Prothrombin Time-INR (01/25/2025 11:06 AM EST) Prothrombin Time 12.6 11.2 - 13.5 SEC [facility] INTERNATIONAL NORM RATIO 1.0 0.9 - 1.1 [facility] Comment:INTERNATIONAL NORMAL IZED RATIO (INR) REFERENCE RANGES Reference RangeFor patients not on anticoagulant therapy: 0.9 - 1.1INR ranges for oral anticoagulanttherapy:For prevention and treatment of venous thrombosis and pulmonary embolism: 2.0 - 3.0For acute myocardial infarction with aspirin therapy: 2.0 - 3.0For acute myocardial infarction without aspirin therapy: 3.0 - 4.0For patients with mechanical prosthetic heart valves: 2.5 - 3.5 Blood Venous blood specimen / Unknown 01/25/2025 11:06 AM EST 01/25/2025 1:22 PM EST us Lolis Adam ANP LAB BLOOD ORDERABLES Final Resul t Performing Organization Address [facility] [address] [facility] Co de Phone Number [facility] [address] [place] [address] [phone] * (ABNORMAL) Hemoglobin A1c (01/25/2025 11:06 AM EST) Hemoglobin A1c 13.1(H) <6.0 % [facility] Comment:Hemoglobin A1C Refer ence Range Adults: 4.8 - 6.0 % Non diabetic: < 6.0 % Goal: < 7.0 %Additional Action Suggested: > 8.0 %Note: Hemoglobin A1c results are invalid for patients with abnormal amounts of HbF. Blood transfusions may impact the HbA1c concentration in the patient sample. Estimated Average Glucose 329 mg/dL [facility] Comment:eAG = Estimated ave rage glucose which is %A1C expressed asaverage glucose, using the formula of the P4L-ZngbpogOvfkpwy Glucose study (ADAG), Diabetes Care, Vol.31,#8,Oct. 2007 01/25/2025 11:0 6 AM EST 01/25/2025 1:22 PM EST us Jyoti Melendez DIRECTOR OF THERAPY SERVICES LAB BLOOD ORDERABLES Final Resul t Performing Organization Address [facility]/ZIP Co de Phone Number [facility] [address] [place] [phone] * (ABNORMAL) Comprehensive metabolic panel (01/25/2025 11:06 AM EST) Sodium 136 135 - 145 mmol/L [facility] Potassium 4.1 3.3 - 5.1 mmol/L [facility] Chloride 104 96 - 108 mmol/L [facility] Carbon Dioxide 25 22 - 29 mmol/L [facility] Anion Gap 11(L) 12 - 20 [facility] Urea Nitrogen (BUN) 6(L) 9 - 16 mg/dL [facility] Creatinine, Serum 0.55 0.5 - 1.4 mg/dL [facility] Estimated Glomerular Filt Rate >60 [facility] Comment:Chronic Kidney Disea se: Estimated GFR < 60 mL/min/[id number] Kidney Disease: Estimated GFR < 15 mL/min/1.73m2 Glucose 255(H) 60 - 115 mg/dL [facility] Calcium 9.2 8.4 - 10.2 mg/dL [facility] Bilirubin, Total 0.3 0.0 - 1.0 mg/dL [facility] Aspartate Amino Transferase 17 5 - 31 U/L [facility] Alanine Aminotransferase 15 0 - 31 U/L [facility] Total Protein 7.4 6.5 - 8.0 g/dL [facility] Albumin Level 4.3 3.5 - 5.0 g/dL [facility] Alkaline Phosphatase 118(H) 39 - 117 U/L [facility] Blood Venous blood specimen / Unknown 01/25/2025 11:06 AM EST 01/25/2025 1:22 PM EST us Evelia Godwin OD LAB BLOOD ORDERABLES Final Resu lt [facility] [address] [place] [phone] * (ABNORMAL) Basic Metabolic Panel (01/25/2025 11:06 AM EST) Sodium 136 135 - 145 mmol/L [facility] Potassium 4.1 3.3 - 5.1 mmol/L [facility] Chloride 104 96 - 108 mmol/L [facility] Carbon Dioxide 24 22 - 29 mmol/L [facility] Anion Gap 12 12 - 20 [facility] Urea Nitrogen (BUN) 6(L) 9 - 16 mg/dL [facility] Creatinine, Serum 0.55 0.5 - 1.4 mg/dL [facility] Estimated Glomerular Filt Rate >60 [facility] Comment:Chronic Kidney Disea se: Estimated GFR < 60 mL/min/1.68k2Kpfasd Kidney Disease: Estimated GFR < 15 mL/min/1.73m2 Glucose 254(H) 60 - 115 mg/dL [facility] Calcium 9.2 8.4 - 10.2 mg/dL [facility] 01/25/2025 11:0 6 AM EST 01/25/2025 1:22 PM EST Jyoti Melendez DIRECTOR OF THERAPY SERVICES LAB BLOOD ORDERABLES Final Resul t [facility] [address] [place] [address] [phone] * PET/CT Bone Skull Base to Mid Thigh (01/20/2025) Anatomical Region Laterality Modality Body Computed Tomogra phy Lolis MAYERS IMG CT PROCEDURES Final Result * (ABNORMAL) [...] Media Lot # [id number] Lot# Expiration Date Urine (Urine, Random) 01/12/2025 3:08 PM EDT us Lolis MAYERS POINT OF CARE TEST ENTER/EDIT OR DERABLES Final Result * (ABNORMAL) Bacterial Vaginosis Panel (01/12/2025 2:41 PM EDT) TRICHOMONAS VAGINALIS DETECTION BY PCR NOT DETECTED Not Detect [facility] BACTERIAL VAGINOSIS DETECTION BY PCR NEGATIVE Negative [facility] Comment:The BV organism targ ets of [...] GROUP DETECTION BY PCR DETECTED(A) Not Detect [facility] Chichi glab krusei PCR NOT DETECTED Not Detect [facility] Swab Vaginal structure / Unknown 01/12/2025 2:41 PM EDT 01/12/2025 6:56 PM EDT us Lolis MAYERS LAB MICROBIOLOGY - GENERAL ORDER BAUTISTA Final Result [facility] [address] [place] [phone] * (ABNORMAL) POCT Hgb A1c (01/12/2025 1:52 PM EDT) Hemoglobin A1C 14.8(A) 4.0 - 5.7 % QC Media Lot # [id number] Lot# Expiration Date [id number] Blood 01/12/2025 1:52 PM EDT us Lolis MAYERS POINT OF CARE TEST ENTER/EDIT OR DERABLES Final Result * Automated Visual Field, Extended - OU - Both Eyes (01/01/2025 11:00 AM EDT) Narrative Evelia Godwin, OD - 01/01/2025 11:00 AM EDT VISUAL [...] stroke. Refer for neuroimaging and neurology consult. us Evelia Godwin OD OPHTH VISUAL FIELD Final Result [...] PM EDT Narrative 12/16/2024 6:15 PM EDT [place] [address] CT Scan Report Signed with Rickey Patient: Teena Garza MR#: [id number] : 1980 Acct:[id number] Age/Sex: 44 / F ADM Date: 12/16/24 Loc: HO.ED Attending Dr: Ordering Physician: Aaron Calderón MD Date of Service: 12/16/24 Procedure(s): CT abdomen pelvis w IV con Accession Number(s): [id number] cc: Aaron Calderón MD; LOLIS ADAM NP Report Number: [id number]: Total DLP = 0.00 mGy-cm Reason for [...] in OV> 12/16/241814 DD/ 12 TD/TT: 12/16/241812 Cyber Security Manager: Procedure Note Donotuseinterpreter, Image - 12/16/[address] [address] [address] Scan Report Signed with Addenda Patient: Teena Garza [facility]#: [id number] : 1980Acct:[id number] Age/Sex: 44 / FADM Date: 12/16/24 Loc: HO.ED Attending Dr: Ordering Physician: Aaron Calderón MD Date of Service: 12/16/24 Procedure(s): CT abdomen pelvis w IV con Accession Number(s): [id number] cc: Aaron Calderón MD; LOLIS ADAM NP Report Number: [id number]: Total DLP = 0.00 mGy-cm Reason for [...] in OV> 12/16/241814 DD/ 12 TD/TT: 12/16/241812 Cyber Security Manager: [facility] External Provider IMG CT PROCEDURES Edited Result - Final * CTA Chest PE Protocal (12/16/2024 6:09 PM EDT) Anatomical Region Laterality Modality Body, Chest Computed Tomogra phy 12/16/2024 6:09 PM EDT Narrative 12/16/2024 6:11 PM EDT [place] [address] CT Scan Report Signed Patient: Teena Garza MR#: [id number] : 1980 Acct:[id number] Age/Sex: 44 / F ADM Date: 12/16/24 Loc: .ED Attending Dr: Ordering Physician: Aaron Calderón MD Date of Service: 12/16/24 Procedure(s): CT angio chest PE protocol Accession Number(s): [id number] cc: Aaron Calderón MD; LOLIS ADAM NP Report Number: [id number]: Total DLP = 0.00 mGy-cm Reason for [...] in OV> 12/16/241810 DD/ 08 TD/TT: 12/16/241808 Cyber Security Manager: Procedure Note Martínter, Image - 12/16/[address] [place] [address] [address] Scan Report Signed Patient: Teena Garza MMR#: [id number] : 1980Acct:[id number] Age/Sex: 44 / FADM Date: 12/16/24 Loc: HO.ED Attending Dr: Ordering Physician: Aaron Calderón MD Date of Service: 12/16/24 Procedure(s): CT angio chest PE protocol Accession Number(s): [id number] cc: Aaron Calderón MD; LOLIS ADAM NP Report Number: [id number]: Total DLP = 0.00 mGy-cm Reason for [...] in OV> 12/16/241810 DD/ 08 TD/TT: 12/16/241808 Cyber Security Manager: [facility] External Provider IMG CT PROCEDURES Final Result * US Abdomen Limited (12/16/2024 3:52 PM EDT) Anatomical Region Laterality Modality Abdomen Ultrasound 12/16/2024 3:52 PM EDT Narrative 12/16/2024 4:09 PM EDT [address] [address] Ultrasound Report Signed Patient: Teena Garza MR#: [id number] : 1980 Acct:[id number] Age/Sex: 44 / F ADM Date: 12/16/24 Loc: HO.ED Attending Dr: Ordering Physician: Aaron Calderón MD Date of Service: 12/16/24 Procedure(s): US abdomen limited Accession Number(s): [id number] cc: Aaron Calderón MD; LOLIS ADAM NP [...] 12/16/24 1606 DD/ 1552 TD/TT: 12/16/24 1555 Cyber Security Manager: Procedure Note Donotuseinterpreter, Image - 12/16/[address] [address] Ultrasound Report Signed Patient: Teena Garza MMR#: [id number] : 1980Acct:[id number] Age/Sex: 44 / FADM Date: 12/16/24 Loc: HO.ED Attending Dr: Ordering Physician: Aaron Calderón MD Date of Service: 12/16/24 Procedure(s): US abdomen limited Accession Number(s): [id number] cc: Aaron Calderón MD; LOLIS ADAM NP [...] Osbaldo Mcmahan MD 12/16/2024 04:06 PM EDT RP Dictated By: Osbaldo Mcmahan MD Signed By: <Electronically signed by Osbaldo Mcmahan MD in OV> 12/16/24 1606 DD/ 1552 TD/TT: 12/16/24 1555 Cyber Security Manager: us [facility] External Provider IMG US PROCEDURES Final Result * XR Chest 2 Views (12/16/2024 12:40 PM EDT) Anatomical Region Laterality Modality Chest Radiographic Heather ging 12/16/2024 12:4 0 PM EDT Narrative 12/16/2024 12:52 PM EDT [place] [address] XRay Report Signed Patient: Teena Garza MR#: [id number] : 1980 Acct:[id number] Age/Sex: 44 / F ADM Date: 12/16/24 Loc: HO.ED Attending Dr: Ordering Physician: Aaron Calderón MD Date of Service: 12/16/24 Procedure(s): XR chest 2V Accession Number(s): [id number] cc: aAron Calderón MD; LOLIS ADAM NP Reason for [...] OV> 12/16/24 1250 DD/ 1240 TD/TT: 12/16/24 124 Cyber Security Manager: Procedure Note Donotuseinterpreter, Image - 12/16/2024 [place] [address] XRay Report Signed Patient: Teena Garza [facility]#: [id number] : 1980Acct:[id number] Age/Sex: 44 / FADM Date: 12/16/24 Loc: .ED Attending Dr: Ordering Physician: Aaron Calderón MD Date of Service: 12/16/24 Procedure(s): XR chest 2V Accession Number(s): [id number] cc: Aaron Calderón MD; LOLIS ADAM NP [...] 12/16/24 1250 DD/ 1240 TD/TT: 12/16/24 1245 Cyber Security Manager: [facility] External Provider IMG XR PROCEDURES Final Result * Hold Lavender - Possible Hematology (12/16/2024 12:13 PM EDT) Hold Lavender - Possible Hematololgy SEE NOTE [facility] Comment:Specimen will be hel d untested for 8 hours. Call Hematologyif testing is desired. 12/16/2024 12:1 3 PM EDT 12/16/2024 12:28 PM EDT Generic External Data Provider HISTORICAL/NON OR DERABLE LABS Final Result [facility] [address] [place] [phone] * (ABNORMAL) Lipid Panel, Standard (06/11/2024 10:40 AM EDT) Triglycerides 213(H) <150 mg/dL [facility] Comment:Desirable Triglyceri de: less than 150 mg/dLBorderline High Triglyceride 150-199 mg/dLHigh Triglyceride: 200-499 mg/dLVery High Triglyceride: greater than or equal to 5OO mg/dL Cholesterol 183 <200 mg/dL [facility] Comment:Desirable Cholestero l: less than 200 mg/dLBorderline High Cholesterol: 200-239 mg/dLHigh Cholesterol: greater than 239 mg/dL LDL Cholesterol Calculated 104(H) <100 mg/dL [facility] Comment:Desirable LDL: less than 100 mg/dLNear Optimal/Above Optimal LDL: 110- 129 mg/dLBorderline High LDL: 130-159 mg/dLHigh LDL: 160-189 mg/dLVery High LDL: greater than or equal to 190 mg/dL HDL Cholesterol 37(L) >40 mg/dL [facility] Comment:Desirable HDL: great er than 40 mg/dL Note: This HDL assay may give artificially low results in patients with liver disease. Blood Venous blood specimen / Unknown 06/11/2024 10:40 AM EDT 06/11/2024 1:11 PM EDT us Lolis Adam ANP LAB BLOOD ORDERABLES Final Resul t [facility] [address] [place] [place] [address] [phone] * BI US Breast Limited Left (12/24/2023 1:53 PM EDT) Anatomical Region Laterality Modality Breast Left Ultrasound 12/24/2023 1:53 PM EDT Narrative 12/24/2023 3:01 PM EDT [facility] [address] [place] [address] Ultrasound Report Signed Patient: Teena Garza MR#: [id number] : 1980 Acct:[id number] Age/Sex: 43 / F ADM Date: 12/24/23 Loc: HO.MAMMO Attending Dr: Lolis Adam NP Ordering Physician: LOLIS ADAM NP Date of Service: 12/24/23 Procedure(s): US breast LT limited mamm only Accession Number(s): [id number] cc: LOLIS ADAM NP EXAMINATION: MM DIAGNOSTIC DIGITAL BREAST TOMOSYNTHESIS, BILATERAL US BREAST LIMITED, LEFT CLINICAL INFORMATION: 43-year-old female, complaining of left breast lump 9:00 axis middle depth. Due for yearly. COMPARISON: Mammography: 07/17/2021, 06/04/2021, 05/23/2021 (all from [place]). TECHNIQUE: Digital breast tomosynthesis is performed in [...] 12/24/23 1458 DD/ 1353 TD/TT: 12/24/23 1415 Cyber Security Manager: Procedure Note Donotuseinterpreter, Image - 12/24/2023 [facility]'s [address] [place] [address] Ultrasound Report Signed Patient: Teena Garza [facility]#: [id number] : 1980Acct:[id number] Age/Sex: 43 / FADM Date: 12/24/23 Loc: HO.MAMMO Attending Dr: Lolis Adam NP Ordering Physician: LOLIS ADAM NP Date of Service: 12/24/23 Procedure(s): US breast LT limited mamm only Accession Number(s): [id number] cc: LOLIS ADAM NP EXAMINATION: MM DIAGNOSTIC DIGITAL BREAST TOMOSYNTHESIS, BILATERAL US BREAST LIMITED, LEFT CLINICAL INFORMATION: 43-year-old female, complaining of left breast lump 9:00 axis middle depth. Due for yearly. COMPARISON: Mammography: 07/17/2021, 06/04/2021, 05/23/2021 (all from [place]). TECHNIQUE: Digital breast tomosynthesis is performed in [...] 12/24/23 1458 DD/ 1353 TD/TT: 12/24/23 1415 Cyber Security Manager: us Lolis MAYERS IMG US PROCEDURES Edited Result - Final * Hepatitis C Antibody with Reflex to HCV, RNA, Quantitative, Real-Time PCR (05/16/2023 10:46 AM EST) Hepatitis C Antibody Nonreactive Nonreactive [facility] Comment:Antibodies to HCV no t detected; does not exclude early acuteHCV infection. Blood Venous blood specimen / Unknown 05/16/2023 10:46 AM EST 05/16/2023 11:35 AM EST us Lolis MAYERS LAB BLOOD ORDERABLES Final Resul t [facility] [address] [place] [phone] * HIV-1/2 Antigen and Antibodies, Fourth Generation, with Reflexes (05/16/2023 10:46 AM EST) HIV AB/AG Nonreactive Nonreactive [facility] Comment:HIV-1 p24 Ag and/or HIV-1/HIV-2 Ab not detected.A test result that is nonreactive does not exclude thepossibility of exposure to or infection with HIV-1 and/orHIV-2. Nonreactive results in this assay for individualswith prior exposure to HIV-1 and/or HIV-2 may be due toantigen and antibody levels that are below the limit ofdetection of this assay.The ScalIT HIV Ag/Ab Combo assay result andsupplemental assay results should be interpreted inconjunction with the patient's clinical presentation,history and other laboratory results. If the results areinconsistent with clinical evidence, additional testing issuggested to confirm the result. Blood Venous blood specimen / Unknown 05/16/2023 10:46 AM EST 05/16/2023 11:35 AM EST Lolis Adam [facility] LAB BLOOD ORDERABLES Final Resul t [facility] [address] [place] [phone] from Last 3 Months or Most Recently Relevant to Health Maintenance Additional Health Concerns Active Problems Noted Date [...] neuropathy 02/01/2025 Patient has diabetic neuropathy 02/01/2025 Weekly blood pressure task 02/03/2025 Weekly blood pressure task 02/03/2025 Weekly blood pressure task 02/03/2025 Patient has chronic kidney disease 02/03/2025 Patient has chronic kidney disease 02/03/2025 Patient has chronic kidney disease 02/03/2025 Patient has diabetic neuropathy 02/03/2025 Patient has diabetic neuropathy 02/03/2025 Patient has diabetic neuropathy 02/03/2025 Weekly blood pressure task 02/03/2025 Weekly blood pressure task 02/03/2025 Weekly blood pressure task 02/03/2025 Patient has chronic kidney disease 02/03/2025 Patient has chronic kidney disease 02/03/2025 Patient has chronic kidney disease 02/03/2025 Patient has diabetic neuropathy 02/03/2025 Patient has diabetic neuropathy 02/03/2025 Patient has diabetic neuropathy 02/03/2025 Weekly blood pressure task 02/03/2025 Weekly blood pressure task 02/03/2025 Weekly blood pressure task 02/03/2025 Patient has chronic kidney disease 02/03/2025 Patient has chronic kidney disease 02/03/2025 Patient has chronic kidney disease 02/03/2025 Patient has diabetic neuropathy 02/03/2025 Patient has diabetic neuropathy 02/03/2025 Patient has diabetic neuropathy 02/03/2025 Weekly blood pressure task 02/04/2025 Weekly blood pressure task 02/04/2025 Weekly blood pressure task 02/04/2025 Patient has chronic kidney disease 02/04/2025 Patient has chronic kidney disease 02/04/2025 Patient has chronic kidney disease 02/04/2025 Patient has diabetic neuropathy 02/04/2025 Patient has diabetic neuropathy 02/04/2025 Patient has diabetic neuropathy 02/04/2025 Weekly blood pressure task 02/04/2025 Weekly blood pressure task 02/04/2025 Weekly blood pressure task 02/04/2025 Patient has chronic kidney disease 02/04/2025 Patient has chronic kidney disease 02/04/2025 Patient has chronic kidney disease 02/04/2025 Patient has diabetic neuropathy 02/04/2025 Patient has diabetic neuropathy 02/04/2025 Patient has diabetic neuropathy 02/04/2025 Weekly blood pressure task 02/05/2025 Weekly blood pressure task 02/05/2025 Weekly blood pressure task 02/05/2025 Patient has chronic kidney disease 02/05/2025 Patient has chronic kidney disease 02/05/2025 Patient has chronic kidney disease 02/05/2025 Patient has diabetic neuropathy 02/05/2025 Patient has diabetic neuropathy 02/05/2025 Patient has diabetic neuropathy 02/05/2025 Weekly blood pressure task 02/05/2025 Weekly blood pressure task 02/05/2025 Weekly blood pressure task 02/05/2025 Patient has chronic kidney disease 02/05/2025 Patient has chronic kidney disease 02/05/2025 Patient has chronic kidney disease 02/05/2025 Patient has diabetic neuropathy 02/05/2025 Patient has diabetic neuropathy 02/05/2025 Patient has diabetic neuropathy 02/05/2025 Insurance [employer] C3 Care Teams Beverage Steward Relationship Specialty Start Date End Date Lolis Adam ANP [address] [place] [address] PCP - General Family Medicine 11/04/20 Kolby Morin, Love [address] [place] [address] Pharmacist Internal Medicine 08/19/23
--- OUTSIDE RECORDS SUMMARY | 2025-02-05 13:42 | XMS_ITS | Encounter Summary ---
Author Organization [employer] Address [address] [facility] 7t [place] [address] Care Team Providers Care Driver Sales Name Role Phone Fiorella Calvo Primary Care Provider [phone] Kolby Morin PharmD Unavailable [phone] Encounter Details Date Type Department Care Team ([facility] st Contact Info) Description 01/13/2025 Results Follow-Up [facility] [address] [place] [address] Fiorella Calvo ANP [address] [place] [address] POCT Glucose, POCT Hgb A1c, POCT Glucose, [...] the past 12 months, has t he appCREAR, gas, oil or water [employer] threatened to shut off services in your [...] preguntas. Take care, Cu??Fiorella de los santos STOREKEEPER STEWARD documented in this encounter Plan of Treatment Upcoming Encounters Date Type Department Care Team (Late st Contact Info) Description 03/08/2025 2:00 PM EST Office Visit [facility] [address] [place] [address] Fiorella Calvo ANP [address] [place] [address] documented as of this encounter Goals Goal Patient Goal Type Associated Problems Recent Progress Patient-Stated? Author Quit using tobacco (cigarettes, smokeless, etc) Tobacco Use No Kolby Morin, Love documented as of this encounter Visit Diagnoses Not on filedocumented in this encounter Additional Health Concerns Assessment Noted Time PHQ-9 Depression Total Score: 21 025 1:51 PM EDT documented as of this encounter Care Teams Driver Sales Relationship Specialty Start Date End Date Fiorella Calvo ANP [address] [place] [phone] PCP - General Family Medicine 11/04/20 Kolby Morin, KariD [address] [place] [phone] Pharmacist Internal Medicine 08/19/23 documented as of this encounter
--- OUTSIDE RECORDS SUMMARY | 2025-02-05 13:42 | XMS_ITS | Encounter Summary ---
Author Organization [employer] [facility] Address [address] [place] [address] 7t [place] [address] Care Team Providers Care Kettleman Name Role Phone Fiorella Calvo Primary Care Provider [phone] Kolby Morin PharmD Unavailable [phone] Reason for Visit * Reason Comments Med Refill Encounter Details Date Type Department Care Team (Late st Contact Info) Description 09/18/[address] [facility] [address] [place] [address] [phone] Fiorella Calvo ANP [address] [place] [address] Pain and swelling of left knee Social [...] Description 03/08/2025 2:00 PM EST Office Visit [facility] [address] [place] [address] Fiorella Calvo ANP [address] [place] [address] documented as of this encounter Goals Goal [...] documented as of this encounter Care Teams Kettleman Relationship Specialty Start Date End Date Fiorella Calvo ANP [address] [place] [address] PCP - General Family Medicine 11/04/20 Kolby Morin, KariD [address] [place] [phone] Pharmacist Internal Medicine 08/19/23 documented as of this encounter
--- OUTSIDE RECORDS SUMMARY | 2025-02-05 13:42 | XMS_ITS | Encounter Summary ---
Author Organization [facility] Address [address] [place] [address] 7 [place] [address] Care Team Providers Care Cardiac Rn Name Role Phone Fiorella Calvo Primary Care Provider [phone] Kolby Morin PharmD Unavailable [phone] Reason for Visit * Reason Comments Med Change Request Encounter Details Date Type Department Care Team (Late st Contact Info) Description 04/14/2023 Refill [facility] [address] [place] [phone] Fiorella Calvo ANP [address] [place] [phone] Chronic left-sided low back pain with left-sided [...] 03/08/2025 2:00 PM EST Office Visit [facility] [address] [place] [phone] Fiorella Calvo ANP [address] [place] [address] documented as of this encounter Visit Diagnoses Diagnosis Chronic left-sided low back pain with left-sided sciatica Diabetic polyneuropathy associated with type 2 diabetes mellitus (HCC) Anxiety Anxiety state, unspecified documented in this encounter Care Teams Cardiac Rn Relationship Specialty Start Date End Date Fiorella Calvo ANP [address] [place] [address] PCP - General Family Medicine 11/04/20 Kolby Morin PharmD [address] [place] [address] Pharmacist Internal Medicine 08/19/23 documented as of this encounter
--- OUTSIDE RECORDS SUMMARY | 2025-02-05 13:42 | XMS_ITS | Encounter Summary ---
Author Organization [employer] Address [address] [facility] 7t [place] [address] Care Team Providers Care Maintenance Electrician Name Role Phone Fiorella Calvo Primary Care Provider [phone] Kolby Morin PharmD Unavailable [phone] Reason for Visit * Reason Onset Date Comments Med Refill 04/14/2024 Encounter Details Date Type Department Care Team (Late st Contact Info) Description 04/14/2024 Refill [facility] [address] [place], [place] [phone] Fiorella Calvo ANP [address] [place] [address] Type 2 diabetes mellitus with hyperlipidemia ([facility]/HCC) ([facility]) Social History Tobacco Use Types Packs/Day [...] Description 03/08/2025 2:00 PM EST Office Visit [facility] [address] [place] [address] Fiorella Calvo ANP [address] [place] [address] documented as of this encounter Goals Goal [...] documented as of this encounter Care Teams Maintenance Electrician Relationship Specialty Start Date End Date Fiorella Calvo ANP [address] [place] [address] PCP - General Family Medicine 11/04/20 Kolby Morin, PharmD [address] [place] [phone] Pharmacist Internal Medicine 08/19/23 documented as of this encounter
--- OUTSIDE RECORDS SUMMARY | 2025-02-05 13:42 | XMS_ITS | Encounter Summary ---
Author Organization [employer] Address [address] [facility] 7 [place] [address] Care Team Providers Care Patternmaker Plastics Name Role Phone Fiorella Calvo Primary Care Provider [phone] Kolby Morin PharmD Unavailable [phone] Reason for Visit * Reason Onset Date Comments PT1 04/15/2024 Encounter Details Date Type Department Care Team ([facility] st Contact Info) Description 04/15/[address] [facility] [address] [place], [place] [phone] Fiorella Calvo ANP [address] [place], [place] [phone] PT1 Social History Tobacco Use Types Packs/Day [...] Miscellaneous Notes * Telephone Encounter - Leisa Alyssa Limon - 04/15/2024 4:01 PM EST Patient calling requesting PT1 Home Address verified: Y/N: Yes Provider name or facility name: [facility] - [address], [place] [address] Escort needed: Y/N: No Do you have a wheelchair: Y/N: No If yes- Manual or electric: N/A Visits: (2x monthly) Patient calling requesting PT1 Home Address verified: Y/N: Yes Provider name or facility name: [facility] [address] [place] [address]. Escort needed: Y/N: No Do you have a wheelchair: Y/N: No If yes- Manual or electric: N/A Visits: (2x monthly) Patient calling requesting PT1 Home Address verified: Y/N: Yes Provider name or facility name: [address] Floor, [place] [address] Escort needed: Y/N: No Do you have a wheelchair: Y/N: No If yes- Manual or electric: N/A Visits: (2x monthly) documented in this encounter Plan of Treatment Upcoming Encounters Date Type Department Care Team (Late st Contact Info) Description 03/08/2025 2:00 PM EST Office Visit [facility] [address] [place] [address] Fiorella Calvo ANP [address] [place] [address] documented as of this encounter Goals Goal Patient Goal Type Associated Problems Recent Progress Patient-Stated? Author Quit using tobacco (cigarettes, smokeless, etc) Tobacco Use No Kolby Morin, PharmD documented as of this encounter Visit Diagnoses Not on filedocumented in this encounter Additional Health Concerns Assessment Noted Time PHQ-9 Depression Total Score: 20 024 9:15 AM EDT documented as of this encounter Care Teams Patternmaker Pl[employer] Relationship Specialty Start Date End Date Fiorella Calvo ANP [address] [place] [address] PCP - General Family Medicine 11/04/20 Kolby Morin PharmD [address] [place] [address] Pharmacist Internal Medicine 08/19/23 documented as of this encounter
--- OUTSIDE RECORDS SUMMARY | 2025-02-05 13:42 | XMS_ITS | Encounter Summary ---
Author Organization [employer] [facility] Address 75 [facility] 7t [place] [address] Care Team Providers Care Manufacturing Inspector Name Role Phone Fiorella Calvo Primary Care Provider [phone] Kolby Morin PharmD Unavailable [phone] Reason for Visit * Reason Onset Date Comments Call Back Request 08/02/2023 Encounter Details Date Type Department Care Team (Late st Contact Info) Description 08/02/2023 Telephone [facility] [address] [place], [place] [phone] Fiorella Calvo ANP 230 [place] [address] Call Back Request Social History Tobacco Use [...] stated was advised to return call however medical writer does not see anything documented on patients chart documented in this encounter Plan of Treatment Upcoming Encounters Date Type Department Care Team (Late st Contact Info) Description 03/08/2025 2:00 PM EST Office Visit [facility] [address] [place] [address] Fiorella Calvo ANP 230 [place] [address] documented as of this encounter Visit Diagnoses Not on filedocumented in this encounter Additional Health Concerns Assessment Noted Time PHQ-9 Depression Total Score: 26 024 2:50 PM EDT documented as of this encounter Care Teams Manufacturing Inspector Relationship Specialty Start Date End Date Fiorella Calvo ANP 230 [place] [address] PCP - General Family Medicine 11/04/20 Kolby Morin, KariD 230 [place] [address] Pharmacist Internal Medicine 08/19/23 documented as of this encounter
--- OUTSIDE RECORDS SUMMARY | 2025-02-05 13:42 | XMS_ITS | Encounter Summary ---
Author Organization [employer] Address 75 [facility] 7t [place] [address] Care Team Providers Care Front Tender Name Role Phone Fiorella Calvo Primary Care Provider [phone] Kolby Morin PharmD Unavailable [phone] Reason for Visit * Reason Onset Date Comments Call Back Request 04/16/2024 Encounter Details Date Type Department Care Team ([facility] st Contact Info) Description 04/16/2024 Telephone [facility] 230 [place], [place] [phone] Fiorella Calvo ANP 230 [place], [place] [phone] Call Back Request Social History Tobacco Use [...] the past 12 months, has t he [employer], gas, oil or water company threatened to [...] from pt returning call Please contact at [phone] documented in this encounter Plan of Treatment Upcoming Encounters Date Type Department Care Team (Late st Contact Info) Description 03/08/2025 2:00 PM EST Office Visit [facility] 230 [place] [address] Fiorella Calvo ANP [address] [place] [address] documented as of this encounter Goals Goal Patient Goal Type Associated Problems Recent Progress Patient-Stated? Author Quit using tobacco (cigarettes, smokeless, etc) Tobacco Use No Kolby Morin, Love documented as of this encounter Visit Diagnoses Not on filedocumented in this encounter Additional Health Concerns Assessment Noted Time PHQ-9 Depression Total Score: 20 024 9:15 AM EDT documented as of this encounter Care Teams Front Tender Relationship Specialty Start Date End Date Fiorella Calvo ANP [address] [place] [address] PCP - General Family Medicine 11/04/20 Kolby Morin, PharmD [address] [place] [address] Pharmacist Internal Medicine 08/19/23 documented as of this encounter
--- OUTSIDE RECORDS SUMMARY | 2025-02-05 13:42 | XMS_ITS | Encounter Summary ---
Author Organization [employer] [facility] Address [address] [place] [address] 7t [place] [address] Care Team Providers Care Cupola Patcher Helper Name Role Phone Fiorella Calvo Primary Care Provider [phone] Kolby Morin PharmD Unavailable [phone] Reason for Visit * Reason Onset Date Comments Nurse Triage 09/11/2023 Encounter Details Date Type Department Care Team (Late st Contact Info) Description 09/11/2023 Telephone [facility] 230 [place], [place] [phone] Fiorella Calvo ANP 230 [place] [address] Nurse Triage Social History Tobacco Use Types [...] 09/11/2023 11:35 AM EDT Triage call with [employer] [place] [id number] Pt reports has had chest pain for last 2-3 weeks. Pt describes pain as pressure, located in middle of chest, radiates to right shoulder at times. Neg for jaw pain, difficulty breathing, no cocaine use. Pt denies heart burn, indigestion. Pt reports pain comes and goes, is coming more frequently now. When Pt is at work Pt will have [...] Chest Pain (Adult) Protocol-Based Disposition: Go to ED/[facility] Now (or to Office with PCP Approval) [...] on chest The caller accepted this outcome Lithuanian speaker documented in this encounter Plan of Treatment Upcoming Encounters Date Type Department Care Team (Late st Contact Info) Description 03/08/2025 2:00 PM EST Office Visit [facility] 230 [place] [address] Fiorella Calvo ANP 230 [place] [address] documented as of this encounter Goals Goal Patient Goal Type Associated Problems Recent Progress Patient-Stated? Author Quit using tobacco (cigarettes, smokeless, etc) Tobacco Use No Kolby Morin, PharmD documented as of this encounter Visit Diagnoses Not on filedocumented in this encounter Additional Health Concerns Assessment Noted Time PHQ-9 Depression Total Score: 23 024 2:49 PM EDT documented as of this encounter Care Teams Cupola Patcher Helper Relationship Specialty Start Date End Date Fiorella Calvo ANP 230 [place] [address] PCP - General Family Medicine 11/04/20 Kolby Morin, PharmD [address] [place] [address] Pharmacist Internal Medicine 08/19/23 documented as of this encounter
--- OUTSIDE RECORDS SUMMARY | 2025-02-05 13:42 | XMS_ITS | Encounter Summary ---
Author Organization [employer] Address 75 [facility] 7 [place] [address] Care Team Providers Care Validation Software Facilitator Name Role Phone Fiorella Calvo Primary Care Provider [phone] Kolby Morin PharmD Unavailable [phone] Reason for Visit * Reason Onset Date Comments PT1 04/23/2024 Encounter Details Date Type Department Care Team (Late st Contact Info) Description 04/23/2024 Telephone [facility] 230 [place], [place] [phone] Fiorella Calvo ANP 230 [place], [place] [phone] PT1 Social History Tobacco Use Types Packs/Day [...] Y/N: Yes Provider name or facility name: [address] [place] [id number] Escort needed: Y/N: No Do you have a wheelchair: Y/N: No If yes- Manual or electric: N/A Visits: (2x monthly) documented in this encounter Plan of Treatment Upcoming Encounters Date Type Department Care Team (Late st Contact Info) Description 03/08/2025 2:00 PM EST Office Visit [facility] 230 [place] [address] Fiorella Calvo ANP 230 [place] [address] documented as of this encounter Goals Goal Patient Goal Type Associated Problems Recent Progress Patient-Stated? Author Quit using tobacco (cigarettes, smokeless, etc) Tobacco Use No Kolby Morin, Love documented as of this encounter Visit Diagnoses Not on filedocumented in this encounter Additional Health Concerns Assessment Noted Time PHQ-9 Depression Total Score: 26 025 11:43 AM EST documented as of this encounter Care Teams Validation Software Facilitator Relationship Specialty Start Date End Date Fiorella Calvo, RIANA 230 [place] [address] PCP - General Family Medicine 11/04/20 Kolby Morin, KariD [address] [place] [address] Pharmacist Internal Medicine 08/19/23 documented as of this encounter
--- OUTSIDE RECORDS SUMMARY | 2025-02-05 13:42 | XMS_ITS | Encounter Summary ---
Author Organization [employer] Address 75 [facility] 7 [place] [address] Care Team Providers Care Broadcast News Producer Name Role Phone Fiorella Calvo Primary Care Provider [phone] Kolby Morin PharmD Unavailable [phone] Reason for Visit * Reason Onset Date Comments Med Refill 12/08/2024 Encounter Details Date Type Department Care Team (Late st Contact Info) Description 12/08/2024 Refill [facility] 230 [place], [place] [phone] Fiorella Calvo ANP [address] [place] [address] Type 2 diabetes mellitus with hyperlipidemia (CMS/HCC) ([facility]/HCC); Diabetic polyneuropathy associated with type 2 [...] Description 03/08/2025 2:00 PM EST Office Visit [facility] [address] [place] [address] Fiorella Calvo ANP [address] [place] [address] documented as of this encounter Goals Goal [...] as of this encounter Care Teams Broadcast News Producer Relationship Specialty Start Date End Date Fiorella Calvo ANP [address] [place] [address] PCP - General Family Medicine 11/04/20 Kolby Morin, Love [address] [place] [address] Pharmacist Internal Medicine 08/19/23 documented as of this encounter
--- OUTSIDE RECORDS SUMMARY | 2025-02-05 13:42 | XMS_ITS | Encounter Summary ---
Author Organization [employer] Address 75 [facility] 7 [place] [address] Care Team Providers Care Border Patrol Agent Name Role Phone Fiorella Calvo Primary Care Provider [phone] Kolby Morin PharmD Unavailable [phone] Reason for Visit * Reason Comments Med Refill Encounter Details Date Type Department Care Team ([facility] st Contact Info) Description 01/19/2025 Refill [facility] 230 [place], [place] [phone] Fiorella Calvo ANP 230 [place] [address] Type 2 diabetes mellitus with hyperlipidemia (HCC) [...] 03/08/2025 2:00 PM EST Office Visit [facility] MED[facility]INE [address] [place] [address] Fiorella Calvo ANP [address] [place] [address] documented as of this encounter Goals Goal [...] documented as of this encounter Care Teams Border Patrol Agent Relationship Specialty Start Date End Date Fiorella Calvo ANP [address] [place] [address] PCP - General Family Medicine 8/20/21 Kolby Morin, PharmD [address] [place] [address] Pharmacist Internal Medicine 08/19/23 documented as of this encounter
--- OUTSIDE RECORDS SUMMARY | 2025-02-05 13:42 | XMS_ITS | Encounter Summary ---
Author Organization [employer] [facility] Address 75 [facility] 7 [place] [address] Care Team Providers Care Electric Motor Repair Supervisor Name Role Phone Fiorella Calvo Primary Care Provider [phone] Kolby Morin PharmD Unavailable Reason for Visit * Reason Onset Date Comments Nurse Triage 11/30/2024 Encounter Details Date Type Department Care Team (Late st Contact Info) Description 11/30/2024 Telephone [facility] 230 [place], [place] [phone] Fiorella Calvo ANP 230 [place], [place] [phone] Nurse Triage Social History Tobacco Use Types [...] PM EDT Triage call with [facility] unleavened dough mixer , [place] [address]. Pt reports blood sugar of 269 today [...] sugar above 300 Please contact pt at [phone]. (Sami Speaker) documented in this encounter Plan of Treatment Upcoming Encounters Date Type Department Care Team (Late st Contact Info) Description 03/08/2025 2:00 PM EST Office Visit [facility] 230 [place] [address] Fiorella Calvo ANP 230 [place] [address] documented as of this encounter Goals Goal Patient Goal Type Associated Problems Recent Progress Patient-Stated? Author Quit using tobacco (cigarettes, smokeless, etc) Tobacco Use No Kolby Morin PharmD documented as of this encounter Visit Diagnoses Not on filedocumented in this encounter Additional Health Concerns Assessment Noted Time PHQ-9 Depression Total Score: 26 025 11:43 AM EST documented as of this encounter Care Teams Electric Motor Repair Supervisor Relationship Specialty Start Date End Date Fiorella Calvo ANP [address] [place] [address] PCP - General Family Medicine 11/04/20 Kolby Morin, Love [address] [place] [address] Pharmacist Internal Medicine 08/19/23 documented as of this encounter
--- OUTSIDE RECORDS SUMMARY | 2025-02-05 13:42 | XMS_ITS | Encounter Summary ---
Author Organization [employer] Address 75 [facility] 7t [place] [address] Care Team Providers Care Lieutenant Ballistics Name Role Phone Fiorella Calvo Primary Care Provider [phone] Kolby Morin PharmD Unavailable [phone] Reason for Visit * Reason Onset Date Comments Med Refill 03/23/2024 Encounter Details Date Type Department Care Team (Late st Contact Info) Description 03/23/2024 Refill [facility] 230 [place], [place] [phone] Fiorella Calvo ANP 230 [place] [address] Type 2 diabetes mellitus with hyperlipidemia (CMS/HCC) [...] Description 03/08/2025 2:00 PM EST Office Visit [facility] [address] [place] [address] Fiorella Calvo ANP 230 [place] [address] documented as of this encounter Goals Goal [...] documented as of this encounter Care Teams Lieutenant Ballistics Relationship Specialty Start Date End Date Fiorella Calvo ANP 230 [place] [address] PCP - General Family Medicine 11/04/20 Kolby Morin, Love 230 [place] [address] Pharmacist Internal Medicine 08/19/23 documented as of this encounter
--- OUTSIDE RECORDS SUMMARY | 2025-02-05 13:42 | XMS_ITS | Encounter Summary ---
Author Organization [employer] Address 75 [facility] 7 [place] [address] Care Team Providers Care Mat Maker Name Role Phone Fiorella Calvo Primary Care Provider [phone] Kolby Morin PharmD Unavailable [phone] Reason for Visit * Reason Onset Date Comments Med Refill 12/04/2024 Encounter Details Date Type Department Care Team (Late st Contact Info) Description 12/04/2024 Refill [facility] 230 [place], [place] [phone] Fiorella Calvo ANP 230 [place] [address] Type 2 diabetes mellitus with hyperlipidemia (CMS/HCC) ([facility]/HCC); Diabetic polyneuropathy associated with type [...] Description 03/08/2025 2:00 PM EST Office Visit [facility] [address] [place] [address] Fiorella Calvo ANP 230 [place] [address] documented as of this encounter Goals Goal [...] documented as of this encounter Care Teams Mat Maker Relationship Specialty Start Date End Date Fiorella Calvo ANP 230 [place] [address] PCP - General Family Medicine 11/04/20 Kolby Morin, Love 230 [place] [address] Pharmacist Internal Medicine 08/19/23 documented as of this encounter
--- OUTSIDE RECORDS SUMMARY | 2025-02-05 13:42 | XMS_ITS | Encounter Summary ---
Author Organization [employer] Address 75 [facility] 7 [place] [address] Care Team Providers Care Lithoplate Maker Name Role Phone Fiorella Calvo Primary Care Provider [phone] Kolby Morin PharmD Unavailable [phone] Reason for Visit * Reason Onset Date Comments Med Refill 04/15/2024 Encounter Details Date Type Department Care Team (Late st Contact Info) Description 04/15/2024 Refill [facility] MED[facility]INE 230 [place], [place] [phone] Fiorella Calvo ANP 230 [place] [address] Type 2 diabetes mellitus with hyperlipidemia (CMS/HCC) ([facility]/HCC); Diabetic polyneuropathy associated with type [...] Description 03/08/2025 2:00 PM EST Office Visit [facility]INE 230 [place] [address] Fiorella Calvo ANP 230 [place] [address] documented as of this encounter Goals Goal [...] documented as of this encounter Care Teams Lithoplate Maker Relationship Specialty Start Date End Date Fiorella Calvo ANP [address] [place] [address] PCP - General Family Medicine 11/04/20 Kolby Morin, Love [address] [place] [address] Pharmacist Internal Medicine 08/19/23 documented as of this encounter
--- OUTSIDE RECORDS SUMMARY | 2025-02-05 13:42 | XMS_ITS | Encounter Summary ---
Author Organization [employer] Address 75 [facility] 7t [place] [address] Care Team Providers Care Desk Assistant Name Role Phone Fiorella Calvo Primary Care Provider [phone] Kolby Morin PharmD Unavailable [phone] Reason for Visit * Reason Onset Date Comments Med Refill 04/16/2024 Encounter Details Date Type Department Care Team (Late st Contact Info) Description 04/16/[address] [facility] MEDICINE 230 [place], [place] [phone] Fiorella Calvo ANP 230 [place] [address] Type 2 diabetes mellitus with hyperlipidemia (CMS/HCC) ([facility]) (Primary Dx) Social History Tobacco Use Types [...] [facility] 230 [place] [address] Fiorella Calvo ANP 230 [place] [address] documented as of this encounter Goals Goal [...] documented as of this encounter Care Teams Desk Assistant Relationship Specialty Start Date End Date Fiorella Calvo ANP [address] [place] [address] PCP - General Family Medicine 11/04/20 Kolby Morin, PharmD [address] [place] [address] Pharmacist Internal Medicine 08/19/23 documented as of this encounter
--- OUTSIDE RECORDS SUMMARY | 2025-02-05 13:42 | XMS_ITS | Encounter Summary ---
Author Organization [employer] Address 75 [facility] 7t [place] [address] Care Team Providers Care Safety Assistant Name Role Phone Fiorella Clavo Primary Care Provider [phone] Kolby Morin PharmD Unavailable [phone] Reason for Visit * Reason Onset Date Comments Durable Medical Equipment 01/21/2025 Encounter Details Date Type Department Care Team (Late st Contact Info) Description 01/21/2025 Telephone [facility] [address] [place], [place] [phone] Fiorella Calvo ANP 230 [place], [place] [phone] Durable Medical Equipment Social History Tobacco Use [...] the past 12 months, has t he [employer], gas, oil or water company threatened to [...] monitor was. Any questions contact pt at [phone] documented in this encounter Plan of Treatment Upcoming Encounters Date Type Department Care Team (Late st Contact Info) Description 03/08/2025 2:00 PM EST Office Visit [facility] [address] [place] [address] Fiorella Calvo ANP 230 [place] [address] documented as of this encounter Goals Goal Patient Goal Type Associated Problems Recent Progress Patient-Stated? Author Quit using tobacco (cigarettes, smokeless, etc) Tobacco Use No Kolby Morin, PharmD documented as of this encounter Visit Diagnoses Not on filedocumented in this encounter Additional Health Concerns Assessment Noted Time PHQ-9 Depression Total Score: 21 025 1:51 PM EDT documented as of this encounter Care Teams Safety Assistant Relationship Specialty Start Date End Date Fiorella Calvo ANP [address] [place] [address] PCP - General Family Medicine 11/04/20 Kolby Morin, PharmD [address] [place] [address] Pharmacist Internal Medicine 08/19/23 documented as of this encounter
--- OUTSIDE RECORDS SUMMARY | 2025-02-05 13:42 | XMS_ITS | Encounter Summary ---
Author Organization [employer] Address [address] [facility] 7t [place] [address] Care Team Providers Care Middle School Band Teacher Name Role Phone Fiorella Calvo Primary Care Provider [phone] Kolby Morin PharmD Unavailable [phone] Reason for Visit * Reason Onset Date Comments Med Refill 02/04/2025 Encounter Details Date Type Department Care Team (Late st Contact Info) Description 02/03/2025 Refill [facility] MEDICINE [address] [place], [place] [phone] Fiorella Calvo ANP [address] [place] [address] Type 2 diabetes mellitus with hyperlipidemia (HCC) Social History Tobacco Use Types Packs/Day Years Used Date Smoking Tobacco: Every Day Cigarettes 1 31.9 Started: 1993 Passive Smoke Exposure: Current Smokeless Tobacco: Current Comments:Patient smoked 1-2 ppd x 30 years, [...] * Telephone Encounter - RIANA Wahl - 02/04/2025 5:17 PM EST Kory valadez documented in this encounter Plan of Treatment Upcoming Encounters Date Type Department Care Team (Late st Contact Info) Description 03/08/2025 2:00 PM EST Office Visit [facility] MED[facility] [address] [place] [address] Fiorella Calvo ANP [address] [place] [address] documented as of this encounter Goals Goal Patient Goal Type Associated Problems Recent Progress Patient-Stated? Author Quit using tobacco (cigarettes, smokeless, etc) Tobacco Use No Kolby Morin, PharmD Help patients manage their type 2 diabetes Care Plan Help patients manage their type 2 diabetes No Kristen Siddiqui, RN Weekly blood pressure task Care Plan [...] Weekly blood pressure task No Adilia Ragsdaleupe, MEDICAL TECHNOLOGIST CHEMISTRY Weekly blood pressure task Care Plan Weekly blood pressure task No Melyssa Lorna, MEDICAL TECHNOLOGIST CHEMISTRY Weekly blood pressure task Care Plan Weekly blood pressure task No Melyssa Lorna, MEDICAL TECHNOLOGIST CHEMISTRY Patient has chronic kidney disease Care Plan Patient has chronic kidney disease No Okclementineo Lorna, MEDICAL TECHNOLOGIST CHEMISTRY Patient has chronic kidney disease Care Plan Patient has chronic kidney disease No Mitcho Lorna, MEDICAL TECHNOLOGIST CHEMISTRY Patient has chronic kidney disease Care Plan Patient has chronic kidney disease No Okclementineo Lorna, MEDICAL TECHNOLOGIST CHEMISTRY Patient has diabetic neuropathy Care Plan Patient has diabetic neuropathy No Okclementineo Lorna, MEDICAL TECHNOLOGIST CHEMISTRY Patient has diabetic neuropathy Care Plan Patient has diabetic neuropathy No Okclementineo Lorna, MEDICAL TECHNOLOGIST CHEMISTRY Patient has diabetic neuropathy Care Plan Patient has diabetic neuropathy No Okclementineo Lorna, MEDICAL TECHNOLOGIST CHEMISTRY Weekly blood pressure task Care Plan Weekly blood pressure task No Deana Limon Weekly blood pressure task Care Plan Weekly blood pressure task No Deana Limon Weekly blood pressure task Care Plan Weekly blood pressure task No Deana Limon Patient has chronic kidney disease Care Plan Patient has chronic kidney disease No Amelie Limona Patient has chronic kidney disease Care Plan Patient has chronic kidney disease No Amelie Limona Patient has chronic kidney disease Care Plan Patient has chronic kidney disease No Amelie Limona Patient has diabetic neuropathy Care Plan Patient has diabetic neuropathy No Amelie Limona Patient has diabetic neuropathy Care Plan Patient has diabetic neuropathy No Amelie Limona Patient has diabetic neuropathy Care Plan Patient has diabetic neuropathy No Amelie Limona Weekly blood pressure task Care Plan Weekly blood pressure task No Mayela Wattandra Weekly blood pressure task Care Plan Weekly blood pressure task No Mayela Wattandra Weekly blood pressure task Care Plan Weekly blood pressure task No Shukri Carly Patient has chronic kidney disease Care Plan Patient has chronic kidney disease No Shukri Carly Patient has chronic kidney disease Care Plan Patient has chronic kidney disease No Shukri Carly Patient has chronic kidney disease Care Plan Patient has chronic kidney disease No Shukri Carly Patient has diabetic neuropathy Care Plan Patient has diabetic neuropathy No Mayela Wattandra Patient has diabetic neuropathy Care Plan Patient has diabetic neuropathy No Shukri Carly Patient has diabetic neuropathy Care Plan Patient [...] Care Plan Patient has diabetic neuropathy No Puia, Camila, PharmD Patient has diabetic neuropathy Care Plan Patient has diabetic neuropathy No Puia, Camila, PharmD Patient has diabetic neuropathy Care Plan Patient has diabetic neuropathy No Puia, Camila, PharmD Weekly blood pressure task Care Plan Weekly blood pressure task No Holland Burks MD Weekly blood pressure task Care Plan Weekly blood pressure task No Holland Burks MD Weekly blood pressure task Care Plan Weekly blood pressure task No Holland Burks MD Patient has chronic kidney disease Care Plan Patient has chronic kidney disease Holland Cassidy MD Patient has chronic kidney disease Care Plan Patient has chronic kidney disease Holland Cassidy MD Patient has chronic kidney disease Care Plan Patient has chronic kidney disease Holland Cassidy MD Patient has diabetic neuropathy Care Plan Patient has diabetic neuropathy Holland Cassidy MD Patient has diabetic neuropathy Care Plan Patient has diabetic neuropathy Holland Cassidy MD Patient has diabetic neuropathy Care Plan Patient has diabetic neuropathy Holland Cassidy MD documented as of this encounter Visit Diagnoses [...] neuropathy 02/03/2025 Patient has diabetic neuropathy 02/03/2025 Assessment Noted Time PHQ-9 Depression Total Score: 21 025 1:51 PM EDT documented as of this encounter Care Teams Middle School Band Teacher Relationship Specialty Start Date End Date Fiorella Calvo ANP [address] [place] [address] PCP - General Family Medicine 11/04/20 Kolby Morin PharmD [address] [place] [address] Pharmacist Internal Medicine 08/19/23 documented as of this encounter
--- OUTSIDE RECORDS SUMMARY | 2025-02-05 13:42 | XMS_ITS | Encounter Summary ---
Author Organization [employer] [facility] Address [address] [place] [address] 7t [place] [address] Care Team Providers Care Zigzag Appliquer Name Role Phone Fiorella Calvo Primary Care Provider [phone] Kolby Morin PharmD Unavailable Reason for Referral * Consultation (Routine) - Authorized Specialty Diagnoses / Procedures Referred By Contac t Referred To Contact Pharmacy Diagnoses Tobacco use disorder Holland Burks MD [address] [place] [address] Phone: tel: fax: Referral ID Status Reason Start Date Expiration Date Visits Requested Visits Authorized [id number] Authorized Consult and Treat 02/03/2025 02/03/2026 6 6 Encounter Details Date Type Department Care Team (Late st Contact Info) Description 02/03/2025 Orders Only [facility] MEDICINE [address] [place], [place] [phone] Holland Burks MD [address] [place], [place] [phone] Tobacco use disorder (Primary Dx) Social History Tobacco Use Types [...] Visit [facility] MED[facility]INE [address] [place] [address] Fiorella Calvo ANP [address] [place] [address] Scheduled Referrals Name Type Priority Associated Diagnoses Orde r Schedule Referral to Pharmacy CDTM Outpatient Referral Routine Tobacco use disorder Ordered: 02/03/2025 documented as of this encounter Goals Goal [...] Plan Patient has chronic kidney disease No oRdrigue Acevedo [place] Patient has diabetic neuropathy Care Plan Patient has diabetic neuropathy No Rodrigue Acevedo [place] Patient has diabetic neuropathy Care Plan Patient has diabetic neuropathy No Rodrigue Acevedo [place] Patient has diabetic neuropathy Care Plan Patient has diabetic neuropathy No Rodrigue Acevedo [place] Weekly blood pressure task Care Plan Weekly blood pressure task No Adilia Ragsdaleupe, FRONT WINDOW CASHIER Weekly blood pressure task Care Plan Weekly blood pressure task No Okhipo Lorna, FRONT WINDOW CASHIER Weekly blood pressure task Care Plan Weekly blood pressure task No Okhipo Lorna, FRONT WINDOW CASHIER Patient has chronic kidney disease Care Plan Patient has chronic kidney disease No Okhipo, Lorna, FRONT WINDOW CASHIER Patient has chronic kidney disease Care Plan Patient has chronic kidney disease No Okhipo, Lorna, FRONT WINDOW CASHIER Patient has chronic kidney disease Care Plan Patient has chronic kidney disease No Okhipo, Lorna, FRONT WINDOW CASHIER Patient has diabetic neuropathy Care Plan Patient has diabetic neuropathy No Okclementnieo, Lorna, FRONT WINDOW CASHIER Patient has diabetic neuropathy Care Plan Patient has diabetic neuropathy No Okhipo, Lorna, FRONT WINDOW CASHIER Patient has diabetic neuropathy Care Plan Patient has diabetic neuropathy No Okhipo, Lorna, FRONT WINDOW CASHIER Weekly blood pressure task Care Plan Weekly [...] Plan Weekly blood pressure task No Carly Wtat Weekly blood pressure task Care Plan Weekly blood pressure task No Carly Watt Patient has chronic kidney [...] Patient has diabetic neuropathy No Carly Watt Weekly blood pressure task [...] has diabetic neuropathy No Holland Burks MD documented as of this encounter Visit Diagnoses Diagnosis Tobacco use disorder- Primary documented in this encounter Additional Health [...] documented as of this encounter Care Teams Zigzag Appliquer Relationship Specialty Start Date End Date Fiorella Calvo ANP [address] [place] [address] PCP - General Family Medicine 11/04/20 Kolby Morin, Love [address] [place] [address] Pharmacist Internal Medicine 08/19/23 documented as of this encounter
--- OUTSIDE RECORDS SUMMARY | 2025-02-05 13:42 | XMS_ITS | Encounter Summary ---
Author Organization [employer] Address [address] [facility] 7 [place] [address] Care Team Providers Care Social Sciences Chair Name Role Phone Fiorella Calvo Primary Care Provider [phone] Kolby Morin PharmD Unavailable Reason for Visit * Reason Comments Med Refill Encounter Details Date Type Department Care Team ([facility] st Contact Info) Description 04/17/2024 Refill [facility] MED[facility]INE [address] [place], [place] [phone] Fiorella Calvo ANP [address] [place] [address] Type 2 diabetes mellitus with hyperlipidemia ([facility]/HCC) ([facility]) Social History Tobacco Use Types Packs/Day [...] AM EST T/C to pt via BLS Chemical Production Technician Lexa #[id number]. Pt reports the following blood glucose readings after increasing Tresiba dose: 235, 245, 233, 164, 140. Pt agrees to f/u with pcp as scheduled and call [facility] prn symptoms. * Telephone Encounter - [...] Description 03/08/2025 2:00 PM EST Office Visit [facility] MEDICINE [address] [place] [phone] Fiorella Calvo ANP [address] [place] [address] documented as of this encounter Goals Goal [...] documented as of this encounter Care Teams Social Sciences Chair Relationship Specialty Start Date End Date Fiorella Calvo ANP [address] [place] [address] PCP - General Family Medicine 11/04/20 Kolby Morin, PharmD [address] [place], [place] [address] [address] Pharmacist Internal Medicine 08/19/23 documented as of this encounter
--- OUTSIDE RECORDS SUMMARY | 2025-02-05 13:42 | XMS_ITS | Encounter Summary ---
Author Organization [employer] [facility] Address [address] [place] [address] 7 [place] [address] Care Team Providers Care Audio/Visual Manager Name Role Phone Fiorella Calvo Primary Care Provider [phone] Kolby Morin PharmD Unavailable [phone] Reason for Visit * Reason Onset Date Comments Follow Up Extended 04/24/23 04/22/2023 Encounter Details Date Type Department Care Team ([facility] Contact Info) Description 04/22/2023 Telephone [facility] MEDICINE [address] [place], [place] [phone] Fiorella Calvo ANP [address] [place] [address] Follow Up Extended 04/24/23 Social History Tobacco [...] wanting to reschedule follow ep ext 04/24/23. Buggy Ladle Tender did not see anything available. Please contact pt at [phone]. documented in this encounter Plan of Treatment Upcoming Encounters Date Type Department Care Team (Late Contact Info) Description 03/08/2025 2:00 PM EST Office Visit [facility] MEDICINE [address] [place] [address] Fiorella Calvo ANP [address] [place] [address] documented as of this encounter Visit Diagnoses Not on filedocumented in this encounter Care Teams Audio/Visual Manager Relationship Specialty Start Date End Date Fiorella Calvo ANP [address] [place] [address] PCP - General Family Medicine 11/04/20 Kolby Morin, KariD [address] [place] [address] Pharmacist Internal Medicine 08/19/23 documented as of this encounter
--- OUTSIDE RECORDS SUMMARY | 2025-02-05 13:42 | XMS_ITS | Encounter Summary ---
Author Organization [employer] Address [address] [facility] 7t [place] [address] Care Team Providers Care Liquor Merchant Name Role Phone Fiorella Calvo Primary Care Provider [phone] Kolby Morin PharmD Unavailable [phone] Reason for Visit * Reason Onset Date Comments Med Refill 01/21/2025 Encounter Details Date Type Department Care Team (Late st Contact Info) Description 01/21/[address] [facility] MEDICINE [address] [place] [address] Fiorella Calvo ANP [address] [place] [address] Chronic pain of left knee; Osteoarthritis of [...] PM EST Office Visit [facility] MEDICINE [address] [place] [address] Fiorella Calvo ANP [address] [place] [address] documented as of this encounter Goals Goal [...] as of this encounter Care Teams Liquor Merchant Relationship Specialty Start Date End Date Fiorella Calvo ANP [address] [place] [address] PCP - General Family Medicine 11/04/20 Kolby Morin, Love [address] [place] [address] Pharmacist Internal Medicine 08/19/23 documented as of this encounter
--- OUTSIDE RECORDS SUMMARY | 2025-02-05 13:43 | XMS_ITS | Encounter Summary ---
Author Organization [employer] Address [address] [facility] 7t [place] [address] Care Team Providers Care Associate Material Handler Name Role Phone Fiorella Calvo Primary Care Provider [phone] Kolby Morin PharmD Unavailable Reason for Visit * Reason Comments Med Refill Encounter Details Date Type Department Care Team (Late st Contact Info) Description 10/16/2024 Refill [facility] MEDICINE [address] [place], [place] [phone] Name, MD Jacob [address] [place] [address] Chronic pain of left knee; Osteoarthritis of [...] Description 03/08/2025 2:00 PM EST Office Visit [facility] MEDICINE [address] [place] [address] Fiorella Calvo ANP [address] [place] [address] documented as of this encounter Goals Goal [...] documented as of this encounter Care Teams Associate Material Handler Relationship Specialty Start Date End Date Fiorella Calvo ANP [address] [place] [address] PCP - General Family Medicine 11/04/20 Kolby Morin, Love [address] [place] [address] Pharmacist Internal Medicine 08/19/23 documented as of this encounter
--- OUTSIDE RECORDS SUMMARY | 2025-02-05 13:43 | XMS_ITS | Encounter Summary ---
Author Organization [employer] Address [address] [facility] 7t [place] [address] Care Team Providers Care Physical Education Department Chair Name Role Phone Fiorella Calvo Primary Care Provider [phone] Kolby Morin PharmD Unavailable [phone] Reason for Visit * Reason Comments Med Refill Encounter Details Date Type Department Care Team (Late st Contact Info) Description 10/26/2024 Refill [facility] MEDICINE [address] [place], [place] [phone] Name, MD Jacob [address] [place] [address] Chronic pain of left knee; Osteoarthritis of [...] 2:00 PM EST Office Visit [facility] MEDICINE [address] [place] [address] Fiorella Calvo ANP [address] [place] [address] documented as of this encounter Goals Goal [...] documented as of this encounter Care Teams Physical Education Department Chair Relationship Specialty Start Date End Date Fiorella Calvo ANP [address] [place] [address] PCP - General Family Medicine 11/04/20 Kolby Morin, KariD [address] [place] [address] Pharmacist Internal Medicine 08/19/23 documented as of this encounter
--- OUTSIDE RECORDS SUMMARY | 2025-02-05 13:43 | XMS_ITS | Encounter Summary ---
Author Organization [facility] Address [address] [place] [address] 7 [place] [address] Care Team Providers Care Rail Tractor Operator Name Role Phone Fiorella Calvo Primary Care Provider [phone] Kolby Morin PharmD Unavailable [phone] Reason for Visit * Reason Comments Med Refill Encounter Details Date Type Department Care Team (Late st Contact Info) Description 05/21/2023 Refill [facility] MEDICINE [address] [place] [address] Fiorella Calvo ANP [address] [place] [address] Social History Tobacco Use Types Packs/Day Years [...] 2:00 PM EST Office Visit [facility] MED[facility]INE [address] [place] [address] Fiorella Calvo ANP [address] [place] [address] documented as of this encounter Visit Diagnoses Not on filedocumented in this encounter Care Teams Rail Tractor Operator Relationship Specialty Start Date End Date Fiorella Calvo ANP [address] [place] [address] PCP - General Family Medicine 11/04/20 Kolby Morin PharmD [address] [place] [address] Pharmacist Internal Medicine 08/19/23 documented as of this encounter
--- OUTSIDE RECORDS SUMMARY | 2025-02-05 13:43 | XMS_ITS | Encounter Summary ---
Author Organization [employer] Address [address] [facility] 7t [place] [address] Care Team Providers Care Table Maker Name Role Phone Fiorella Calvo Primary Care Provider [phone] Kolby Morin PharmD Unavailable [phone] Reason for Visit * Reason Comments Med Refill Encounter Details Date Type Department Care Team (Late st Contact Info) Description 11/06/2024 Refill [facility] MEDICINE [address] [place], [place] [phone] Fiorella Calvo ANP [address] [place] [address] Chronic pain of left knee; Osteoarthritis of [...] 2:00 PM EST Office Visit [facility] MEDICINE [address] [place] [address] Fiorella Calvo ANP [address] [place] [address] documented as of this encounter Goals Goal [...] documented as of this encounter Care Teams Table Maker Relationship Specialty Start Date End Date Fiorella Calvo ANP [address] [place] [address] PCP - General Family Medicine 11/04/20 Kolby Morin, Love [address] [place] [address] Pharmacist Internal Medicine 08/19/23 documented as of this encounter
--- OUTSIDE RECORDS SUMMARY | 2025-02-05 13:43 | XMS_ITS | Encounter Summary ---
Author Organization [employer] Address [address] [facility] 7t [place] [address] Care Team Providers Care Tetryl Blender Operator Name Role Phone Fiorella Calvo Primary Care Provider [phone] Kolby Morin PharmD Unavailable [phone] Reason for Visit * Reason Onset Date Comments Med Refill 02/05/2025 Encounter Details Date Type Department Care Team ([facility] st Contact Info) Description 02/05/2025 Refill [facility] [address] [place] [address] Andria Barrios, RN 505 [place] [address] Chronic pain of left knee; Osteoarthritis of [...] 2:00 PM EST Office Visit [facility] 230 [place] [address] Fiorella Calvo ANP [address] [place] [address] documented as of this encounter Goals Goal Patient Goal Type Associated Problems Recent Progress Patient-Stated? Author Quit using tobacco (cigarettes, smokeless, etc) Tobacco Use No Kolby Morin, PharmD Help patients manage their type 2 diabetes Care Plan Help patients manage their type 2 diabetes Kristen Kapadia, RN Weekly blood pressure task Care Plan Weekly blood pressure task No Kristen Siddiqui, RN Help patients manage their type 2 diabetes Care Plan Help patients manage their type 2 diabetes Kristen Kapadia, KENYA Patient has chronic kidney disease Care Plan [...] Care Plan Weekly blood pressure task No Okclementineo, Lorna, THIOKOL OPERATOR Weekly blood pressure task Care Plan Weekly blood pressure task No Okclementineo Lorna, THIOKOL OPERATOR Weekly blood pressure task Care Plan Weekly blood pressure task No Okhipo, Lorna, THIOKOL OPERATOR Patient has chronic kidney disease Care Plan Patient has chronic kidney disease No Okhipo, Lorna, THIOKOL OPERATOR Patient has chronic kidney disease Care Plan Patient has chronic kidney disease No Okhipo, Lorna, THIOKOL OPERATOR Patient has chronic kidney disease Care Plan Patient has chronic kidney disease No Okhipo, Lorna, THIOKOL OPERATOR Patient has diabetic neuropathy Care Plan Patient has diabetic neuropathy No Okhipo Lorna, THIOKOL OPERATOR Patient has diabetic neuropathy Care Plan Patient has diabetic neuropathy No Okhipo, Lorna, THIOKOL OPERATOR Patient has diabetic neuropathy Care Plan Patient has diabetic neuropathy No Okhipo, Lorna, THIOKOL OPERATOR Weekly blood pressure task Care Plan Weekly blood pressure task No Deana Limon Weekly blood pressure task Care Plan Weekly blood pressure task No Deana Limon Weekly blood pressure task Care Plan Weekly blood pressure task No Deana Limon Patient has chronic kidney disease Care Plan Patient has chronic kidney disease No Deana Limon Patient has chronic kidney disease Care Plan Patient has chronic kidney disease No Deana Limon Patient has chronic kidney disease Care Plan Patient has chronic kidney disease No Deana Limon Patient has diabetic neuropathy Care Plan Patient has diabetic neuropathy No Deana Limon Patient has diabetic neuropathy Care Plan Patient has diabetic neuropathy No Deana Limon Patient has diabetic neuropathy Care Plan Patient has diabetic neuropathy No Deana Limon Weekly blood pressure task Care Plan Weekly blood pressure task No Carly Watt Weekly blood pressure task Care Plan Weekly blood pressure task No Carly Watt Weekly blood pressure task Care Plan Weekly blood pressure task No Carly aWtt Patient has chronic kidney disease Care Plan Patient has chronic kidney disease No Carly Watt Patient has chronic kidney disease Care Plan Patient has chronic kidney disease No Carly Watt Patient has chronic kidney disease Care Plan Patient has chronic kidney disease No Carly Watt Patient has diabetic neuropathy Care Plan Patient has diabetic neuropathy No Carly Watt Patient has diabetic neuropathy Care Plan Patient has diabetic neuropathy No Caryl Watt Patient has diabetic neuropathy Care Plan [...] Care Plan Weekly blood pressure task No Pacheco, Yoselin, WINDLASSER Weekly blood pressure task Care Plan Weekly blood pressure task No Pacheco, Yoselin, WINDLASSER Weekly blood pressure task Care Plan Weekly blood pressure task No Pacheco, Yoselin, WINDLASSER Patient has chronic kidney disease Care Plan Patient has chronic kidney disease No Pacheco, Yoselin, WINDLASSER Patient has chronic kidney disease Care Plan Patient has chronic kidney disease No Pacheco, Yoselin, WINDLASSER Patient has chronic kidney disease Care Plan Patient has chronic kidney disease No Pacheco, Yoselin, WINDLASSER Patient has diabetic neuropathy Care Plan Patient has diabetic neuropathy No Pacheco, Yoselin, WINDLASSER Patient has diabetic neuropathy Care Plan Patient has diabetic neuropathy No Pacheco, Yoselin, WINDLASSER Patient has diabetic neuropathy Care Plan Patient has diabetic neuropathy No Pacheco, Yoselin, WINDLASSER Weekly blood pressure task Care Plan Weekly blood pressure task No Fiorella Calvo ANP Weekly blood pressure task Care Plan Weekly blood pressure task No Fiorella Calvo ANP Weekly blood pressure task Care Plan Weekly blood pressure task No Fiorella Calvo ANP Patient has chronic kidney disease Care Plan Patient has chronic kidney disease No Fiorella Calvo ANP Patient has chronic kidney disease Care Plan Patient has chronic kidney disease No Fiorella Calvo ANP Patient has chronic kidney disease Care Plan Patient has chronic kidney disease No Fiorella Calvo ANP Patient has diabetic neuropathy Care Plan Patient has diabetic neuropathy No Fiorella Calvo ANP Patient has diabetic neuropathy Care Plan Patient has diabetic neuropathy No Fiorella Calvo ANP Patient has diabetic neuropathy Care Plan Patient has diabetic neuropathy No Fiorella Calvo ANP Weekly blood pressure task Care Plan Weekly blood pressure task No Fiorella Calvo ANP Weekly blood pressure task Care Plan Weekly blood pressure task No Fiorella Calvo ANP Weekly blood pressure task Care Plan Weekly blood pressure task No Fiorella Calvo ANP Patient has chronic kidney disease Care Plan Patient has chronic kidney disease No Fiorella Calvo ANP Patient has chronic kidney disease Care Plan Patient has chronic kidney disease No Fiorella Calvo ANP Patient has chronic kidney disease Care Plan Patient has chronic kidney disease No Fiorella Calvo ANP Patient has diabetic neuropathy Care Plan Patient has diabetic neuropathy No Fiorella Calvo ANP Patient has diabetic neuropathy Care Plan Patient has diabetic neuropathy No Fiorella Calvo ANP Patient has diabetic neuropathy Care Plan Patient has diabetic neuropathy No Fiorella Calvo ANP Weekly blood pressure task Care Plan [...] Care Plan Patient has diabetic neuropathy No Andira Barrios RN documented as of this encounter Visit Diagnoses [...] neuropathy 02/05/2025 Patient has diabetic neuropathy 02/05/2025 Assessment Noted Time PHQ-9 Depression Total Score: 025 1:51 PM EDT documented as of this encounter Care Teams Tetryl Blender Operator Relationship Specialty Start Date End Date Fiorella Calvo ANP [address] [place] [address] PCP - General Family Medicine 11/04/20 Kolby Morin, Love [address] [place] [address] Pharmacist Internal Medicine 08/19/23 documented as of this encounter
--- OUTSIDE RECORDS SUMMARY | 2025-02-05 13:43 | XMS_ITS | Encounter Summary ---
Author Organization [employer] Address [address] [facility] 7t [place] [address] Care Team Providers Care Civil Engineering Assistant Name Role Phone Fiorella Calvo Primary Care Provider [phone] Kolby Morin PharmD Unavailable [phone] Encounter Details Date Type Department Care Team (Latest Contact Info) Description 02/01/2025 Travel Social History Tobacco Use Types Packs/Day [...] Description 03/08/2025 2:00 PM EST Office Visit [facility] 230 [place], [place] [phone] Fiorella Calvo ANP 230 [place], [place] [phone] documented as of this encounter Goals Goal [...] Weekly blood pressure task No Okhipo, Lorna, LEADERSHIP INTERN Weekly blood pressure task Care Plan Weekly blood pressure task No Okhipo, Lorna, LEADERSHIP INTERN Weekly blood pressure task Care Plan Weekly blood pressure task No Okhipo, Lorna, LEADERSHIP INTERN Patient has chronic kidney disease Care Plan Patient has chronic kidney disease No Okhipo, Lorna, LEADERSHIP INTERN Patient has chronic kidney disease Care Plan Patient has chronic kidney disease No Okhipo Lorna, LEADERSHIP INTERN Patient has chronic kidney disease Care Plan Patient has chronic kidney disease No Okhipo Lorna, LEADERSHIP INTERN Patient has diabetic neuropathy Care Plan Patient has diabetic neuropathy No Okhipo, Lorna, LEADERSHIP INTERN Patient has diabetic neuropathy Care Plan Patient has diabetic neuropathy No Okhipo, Lorna, LEADERSHIP INTERN Patient has diabetic neuropathy Care Plan Patient has diabetic neuropathy No Okhipo, Lorna, LEADERSHIP INTERN Weekly blood pressure task Care Plan Weekly blood pressure task No Amelie Limona Weekly blood pressure task Care Plan Weekly blood pressure task No Amelie Limona Weekly blood pressure task Care Plan Weekly blood pressure task No Amelie Limona Patient has chronic kidney [...] Patient has diabetic neuropathy No Deana Limon documented as of this encounter Visit Diagnoses Not on filedocumented in this encounter Additional Health Concerns Active [...] Noted Time PHQ-9 Depression Total Score: 21 01/12/ 025 1:51 PM EDT documented as of this encounter Care Teams Civil Engineering Assistant Relationship Specialty Start Date End Date Fiorella Calvo ANP [address] [place] [address] PCP - General Family Medicine 11/04/20 Kolby Morin, KariD 230 [place] [address] Pharmacist Internal Medicine 08/19/23 documented as of this encounter
--- OUTSIDE RECORDS SUMMARY | 2025-02-05 13:43 | XMS_ITS | Encounter Summary ---
Author Organization [employer] Address [address] [facility] 7t [place] [address] Care Team Providers Care Rail Track Layer Name Role Phone Fiorella Calvo Primary Care Provider [phone] Kolby Morin PharmD Unavailable [phone] Reason for Visit * Reason Onset Date Comments Med Refill 11/06/2024 Encounter Details Date Type Department Care Team (Late st Contact Info) Description 11/06/2024 Telephone [facility] [address] [place], [place] [phone] Fiorella Calvo ANP 230 [place], [place] [phone] Med Refill Social History Tobacco Use Types [...] 50 MG tablet To be sent to: [facility]/pharmacy #[id number] - [place], [place] - [address] [facility] documented in this encounter Plan of Treatment Upcoming Encounters Date Type Department Care Team (Late st Contact Info) Description 03/08/2025 2:00 PM EST Office Visit [facility] [address] [place] [address] Fiorella Calvo ANP [address] [place] [address] documented as of this encounter Goals Goal Patient Goal Type Associated Problems Recent Progress Patient-Stated? Author Quit using tobacco (cigarettes, smokeless, etc) Tobacco Use No Kolby Morin, Love documented as of this encounter Visit Diagnoses Not on filedocumented in this encounter Additional Health Concerns Assessment Noted Time PHQ-9 Depression Total Score: 26 025 11:43 AM EST documented as of this encounter Care Teams Rail Track Layer Relationship Specialty Start Date End Date Fiorella Calvo ANP [address] [place] [address] PCP - General Family Medicine 11/04/20 Kolby Morin, PharmD [address] [place] [address] Pharmacist Internal Medicine 08/19/23 documented as of this encounter
--- OUTSIDE RECORDS SUMMARY | 2025-02-05 13:43 | XMS_ITS | Encounter Summary ---
Author Organization [employer] [facility] Address [address] [place] [address] 7 [place] [address] Care Team Providers Care Sustainability Coach Name Role Phone Fiorella Calvo Primary Care Provider [phone] Kolby Morin PharmD Unavailable Reason for Visit * Reason Onset Date Comments Med Refill 05/15/2023 Encounter Details Date Type Department Care Team (Late st Contact Info) Description 05/15/2023 Refill [facility] [address] [place] [address] Fiorella Calvo ANP [address] [place], [place] [phone] Allergic rhinitis, unspecified seasonality, unspecified trigger Social [...] Description 03/08/2025 2:00 PM EST Office Visit [facility] 230 [place], [place] [phone] Fiorella Calvo ANP [address] [place] [address] documented as of this encounter Visit Diagnoses Diagnosis Allergic rhinitis, unspecified seasonality, unspecified trigger documented in this encounter Care Teams Sustainability Coach Relationship Specialty Start Date End Date Fiorella Calvo ANP [address] [place] [address] PCP - General Family Medicine 11/04/20 Kolby Morin PharmD [address] [place] [address] Pharmacist Internal Medicine 08/19/23 documented as of this encounter
--- OUTSIDE RECORDS SUMMARY | 2025-02-05 13:43 | XMS_ITS | Encounter Summary ---
Author Organization [employer] Address [address] [place] [address] 7t [place] [address] Care Team Providers Care Wet Primer Powder Blender Name Role Phone Fiorella Calvo Primary Care Provider [phone] Kolby Morin PharmD Unavailable [phone] Reason for Visit * Reason Onset Date Comments Med Refill 02/04/2025 Encounter Details Date Type Department Care Team (Late st Contact Info) Description 02/03/2025 Refill [facility] [address] [place], [place] [phone] TarkaEvelia, OD [address] [place] [address] Dry eyes, bilateral Social History Tobacco Use Types Packs/Day Years [...] Description 03/08/2025 2:00 PM EST Office Visit [facility] [address] [place] [address] Fiorelal Calvo ANP [address] [place] [address] documented as of this encounter Goals Goal Patient Goal Type Associated Problems Recent Progress Patient-Stated? Author Quit using tobacco (cigarettes, smokeless, etc) Tobacco Use No Kolby Morin, PharmD Help patients manage their type 2 diabetes Care Plan Help patients manage their type 2 diabetes Kristen Kapadia, KENYA Weekly blood pressure task Care Plan Weekly blood pressure task Kristen Kapadia, KENYA Help patients manage their type 2 diabetes Care Plan Help patients manage their type 2 diabetes Kristen aKpadia, KENYA Patient has chronic kidney disease Care Plan Patient has chronic kidney disease Kristen Kapadia, KENYA Help patients manage their type 2 diabetes [...] Weekly blood pressure task No Okclementineo, Lorna, DIAL MOUNTER Weekly blood pressure task Care Plan Weekly blood pressure task No Okclementineo Lorna, DIAL MOUNTER Weekly blood pressure task Care Plan Weekly blood pressure task No Okhipo, Lorna, DIAL MOUNTER Patient has chronic kidney disease Care Plan Patient has chronic kidney disease No Okhipo, Lorna, DIAL MOUNTER Patient has chronic kidney disease Care Plan Patient has chronic kidney disease No Okhipo, Lorna, DIAL MOUNTER Patient has chronic kidney disease Care Plan Patient has chronic kidney disease No Okhipo, Lorna, DIAL MOUNTER Patient has diabetic neuropathy Care Plan Patient has diabetic neuropathy No Okhipo, Lorna, DIAL MOUNTER Patient has diabetic neuropathy Care Plan Patient has diabetic neuropathy No Okhipo, Lorna, DIAL MOUNTER Patient has diabetic neuropathy Care Plan Patient has diabetic neuropathy No Okhipo, Lorna, DIAL MOUNTER Weekly blood pressure task Care Plan Weekly [...] Plan Patient has chronic kidney disease No Scott Watt Holland, MD Patient has diabetic neuropathy Care Plan Patient has diabetic neuropathy Holland Cassidy MD Patient has diabetic neuropathy Care Plan Patient has diabetic neuropathy Holland Cassidy MD Patient has diabetic neuropathy Care Plan Patient has diabetic neuropathy Holland Cassidy MD documented as of this encounter Visit Diagnoses Diagnosis Dry eyes, bilateral documented in this encounter Additional Health Concerns [...] documented as of this encounter Care Teams Wet Primer Powder Blender Relationship Specialty Start Date End Date Fiorella Calvo ANP [address] [place] [address] PCP - General Family Medicine 11/04/20 Kolby Morin PharmD [address] [place] [address] Pharmacist Internal Medicine 08/19/23 documented as of this encounter
--- OUTSIDE RECORDS SUMMARY | 2025-02-05 13:43 | XMS_ITS | Encounter Summary ---
Author Organization [employer] Address [address] [facility] 7t [place] [address] Care Team Providers Care Belt Turner Name Role Phone Fiorella Calvo Primary Care Provider [phone] Kolby Morin PharmD Unavailable [phone] Reason for Visit * Reason Comments Med Refill Encounter Details Date Type Department Care Team (Late st Contact Info) Description 02/01/2025 Refill [facility] [address] [place], [place] [phone] Fiorella Calvo ANP [address] [place] [address] Chronic pain of left knee; Osteoarthritis of [...] Description 03/08/2025 2:00 PM EST Office Visit [facility] [address] [place] [address] Fiorella Calvo ANP [address] [place] [address] documented as of this encounter Goals Goal [...] Plan Weekly blood pressure task No Vikki Hilliadr RN Patient has chronic kidney disease Care [...] Plan Patient has chronic kidney disease No Rodrigeu Acevedo [place] Patient has chronic kidney disease [...] Weekly blood pressure task No Okclementineo, Lorna, PAINT POURER Weekly blood pressure task Care Plan Weekly blood pressure task No Mitcho Lorna, PAINT POURER Weekly blood pressure task Care Plan Weekly blood pressure task No Okhipo, Lorna, PAINT POURER Patient has chronic kidney disease Care Plan Patient has chronic kidney disease No Okhipo, Lorna, PAINT POURER Patient has chronic kidney disease Care Plan Patient has chronic kidney disease No Okhipo, Lorna, PAINT POURER Patient has chronic kidney disease Care Plan Patient has chronic kidney disease No Okhipo, Lorna, PAINT POURER Patient has diabetic neuropathy Care Plan Patient has diabetic neuropathy No Okhipo, Lorna, PAINT POURER Patient has diabetic neuropathy Care Plan Patient has diabetic neuropathy No Okhipo, Lorna, PAINT POURER Patient has diabetic neuropathy Care Plan Patient has diabetic neuropathy No Okhipo, Lorna, PAINT POURER Weekly blood pressure task Care Plan Weekly [...] documented as of this encounter Care Teams Belt Turner Relationship Specialty Start Date End Date Fiorella Calvo ANP [address] [place] [address] PCP - General Family Medicine 11/04/20 Kolby Morin, Love [address] [place] [address] Pharmacist Internal Medicine 08/19/23 documented as of this encounter
--- OUTSIDE RECORDS SUMMARY | 2025-02-05 13:43 | XMS_ITS | Encounter Summary ---
Author Organization [employer] Address [address] [facility] 7 [place] [address] Care Team Providers Care Shipwright Supervisor Name Role Phone Fiorella Calvo Primary Care Provider [phone] Kolby Morin PharmD Unavailable [phone] Reason for Visit * Reason Onset Date Comments Med Refill 11/25/2024 Encounter Details Date Type Department Care Team (Late st Contact Info) Description 11/25/2024 Refill [facility] 230 [place], [place] [phone] Fiorella Calvo ANP [address] [place] [address] Type 2 diabetes mellitus with hyperlipidemia (CMS/HCC) ([facility]/HCC); Diabetic polyneuropathy associated with type 2 [...] 03/08/2025 2:00 PM EST Office Visit [facility] [address] [place] [address] Fiorella Calvo ANP [address] [place] [address] documented as of this encounter Goals Goal [...] documented as of this encounter Care Teams Shipwright Supervisor Relationship Specialty Start Date End Date Fiorella Calvo ANP [address] [place] [address] PCP - General Family Medicine 11/04/20 Kolby Morin, Love [address] [place] [address] Pharmacist Internal Medicine 08/19/23 documented as of this encounter
--- OUTSIDE RECORDS SUMMARY | 2025-02-05 13:43 | XMS_ITS | Encounter Summary ---
Author Organization [employer] Address [address] [facility] 7t [place] [address] Care Team Providers Care Ten Pin Bowling Centre Manager Name Role Phone Fiorella Calvo Primary Care Provider Kolby Morin PharmD Unavailable [phone] Encounter Details Date Type Department Care Team (Late st Contact Info) Description 02/05/2025 Orders Only [facility] [address] [place], [place] [phone] Fiorella Calvo ANP [address] [place] [address] Chronic pain of left knee; Osteoarthritis of [...] encounter Progress Notes * RIANA Wahl - 02/05/2025 8:45 AM EST Tramadol Rx refill req via pharmacy documented in this encounter Plan of Treatment Upcoming Encounters Date Type Department Care Team (Late st Contact Info) Description 03/08/2025 2:00 PM EST Office Visit [facility] [address] [place] [address] Fiorella Calvo ANP [address] [place] [address] documented as of this encounter Goals Goal Patient Goal Type Associated Problems Recent Progress Patient-Stated? Author Quit using tobacco (cigarettes, smokeless, etc) Tobacco Use No Kolby Morin, PharmD Help patients manage their type 2 diabetes Care Plan Help patients manage their type 2 diabetes No Artur, Kristen, RN Weekly blood pressure task Care Plan [...] Weekly blood pressure task No Adilia Ragsdaleupe, PROCESS OWNER Weekly blood pressure task Care Plan Weekly blood pressure task No Hillary Ragsdalee, PROCESS OWNER Weekly blood pressure task Care Plan Weekly blood pressure task No Adilia Ragsdaleupe, PROCESS OWNER Patient has chronic kidney disease Care Plan Patient has chronic kidney disease No Okclementineo Lorna, PROCESS OWNER Patient has chronic kidney disease Care Plan Patient has chronic kidney disease No Adilia Ragsdaleupe, PROCESS OWNER Patient has chronic kidney disease Care Plan Patient has chronic kidney disease No Okclementineo Lorna, PROCESS OWNER Patient has diabetic neuropathy Care Plan Patient has diabetic neuropathy No Okclementineo Lorna, PROCESS OWNER Patient has diabetic neuropathy Care Plan Patient has diabetic neuropathy No Okclementineo Lorna, PROCESS OWNER Patient has diabetic neuropathy Care Plan Patient has diabetic neuropathy No Okclementineo Lorna, PROCESS OWNER Weekly blood pressure task Care Plan Weekly [...] Plan Patient has chronic kidney disease No [employer] Patient has chronic kidney disease Care [...] Weekly blood pressure task No Shukri Carly Weekly blood pressure task Care Plan Weekly blood pressure task No Shukri Carly Weekly blood pressure task [...] Care Plan Patient has diabetic neuropathy No Shukri, Carly Weekly blood pressure task Care Plan [...] Weekly blood pressure task No Pacheco, Yoselin, BULB BRANDER Weekly blood pressure task Care Plan Weekly blood pressure task No Pacheco, Yoselin, BULB BRANDER Weekly blood pressure task Care Plan Weekly blood pressure task No Pacheco, Yoselin, BULB BRANDER Patient has chronic kidney disease Care Plan Patient has chronic kidney disease No Pacheco, Yoselin, BULB BRANDER Patient has chronic kidney disease Care Plan Patient has chronic kidney disease No Pacheco, Yoselin, BULB BRANDER Patient has chronic kidney disease Care Plan Patient has chronic kidney disease No Pacheco, Yoselin, BULB BRANDER Patient has diabetic neuropathy Care Plan Patient has diabetic neuropathy No Pacheco, Yoselin, BULB BRANDER Patient has diabetic neuropathy Care Plan Patient has diabetic neuropathy No Pacheco, Yoselin, BULB BRANDER Patient has diabetic neuropathy Care Plan Patient has diabetic neuropathy No Pacheco, Yoselin, BULB BRANDER Weekly blood pressure task Care Plan Weekly [...] Plan Patient has diabetic neuropathy No Andria aBrrios RN Patient has diabetic neuropathy Care Plan Patient has diabetic neuropathy No Andria Barrios RN Patient has diabetic neuropathy Care Plan Patient has diabetic neuropathy No Andria Barrios RN documented as of this encounter [...] documented as of this encounter Care Teams Ten Pin Bowling Centre Manager Relationship Specialty Start Date End Date Fiorella Calvo ANP [address] [place] [address] PCP - General Family Medicine 11/04/20 Kolby Morin PharmD [address] [place] [address] Pharmacist Internal Medicine 08/19/23 documented as of this encounter
--- OUTSIDE RECORDS SUMMARY | 2025-02-05 13:43 | XMS_ITS | Encounter Summary ---
Author Organization [employer] [facility] Address [address] [place] [address] 7 [place] [address] Care Team Providers Care Forecast Analyst Name Role Phone Fiorella Calvo Primary Care Provider [phone] Kolby Morin PharmD Unavailable [phone] Reason for Visit * Reason Onset Date Comments Med Refill 05/17/2023 Encounter Details Date Type Department Care Team (Late st Contact Info) Description 05/17/2023 Refill [facility] MEDICINE [address] [place] [address] [phone] Fiorella Calvo ANP [address] [place], [place] [phone] Diabetes mellitus type 2 in obese ([facility]) Social History Tobacco Use Types [...] 2:00 PM EST Office Visit [facility] MEDICINE 230 [place], [place] [phone] Fiorella Calvo ANP [address] [place], [place] [phone] documented as of this encounter Visit Diagnoses Diagnosis Diabetes mellitus type 2 in obese Type II or unspecified type diabetes mellitus without mention of complication, not stated as uncontrolled documented in this encounter Care Teams Forecast Analyst Relationship Specialty Start Date End Date Fiorella Calvo ANP 230 [place] [address] PCP - General Family Medicine 11/04/20 Kolby Morin PharmD 230 [place] [address] Pharmacist Internal Medicine 08/19/23 documented as of this encounter
--- OUTSIDE RECORDS SUMMARY | 2025-02-05 13:43 | XMS_ITS | Encounter Summary ---
Author Organization [employer] Address 75 [facility] 7t [place] [address] Care Team Providers Care Fiberglass Container Winding Operator Name Role Phone Fiorella Calvo Primary Care Provider [phone] Kolby Morin PharmD Unavailable [phone] Encounter Details Date Type Department Care Team (Latest Contact Info) Description 01/29/2025 Results Follow-Up [facility] [address] [place] [phone] Fiorella Calvo ANP 230 [place] [address] Vitamin B12/Folate, Serum Panel, Comprehensive metabolic panel Social History Tobacco Use Types Packs/Day Years [...] with others, in a hotel, in a fci, living outside on the street, on a [...] the past 12 months, has t he [employer], gas, oil or water company threatened to [...] Office Visit [facility] 230 [place] [address] Fiorella Calvo ANP [address] [place] [address] documented as of this encounter Goals Goal Patient Goal Type Associated Problems Recent Progress Patient-Stated? Author Quit using tobacco (cigarettes, smokeless, etc) Tobacco Use No Kolby Morin, PharmD Help patients manage their type 2 diabetes Care Plan Help patients manage their type 2 diabetes No Kristen Siddiqui, KENYA Weekly blood pressure task Care Plan Weekly blood pressure task No Kristen Siddiqui, KENYA Help patients manage their type 2 diabetes Care Plan Help patients manage their type 2 diabetes No Kristen Siddiqui, KENYA Patient has chronic kidney disease Care Plan Patient has chronic kidney disease No Kritsen Siddiqui, RN Help patients manage their type 2 diabetes Care Plan Help patients manage their type 2 diabetes No Kristen Siddiqui, RN Patient has diabetic neuropathy Care Plan [...] Care Plan Weekly blood pressure task No Vkiki Hilliard RN Weekly blood pressure task Care [...] Plan Patient has chronic kidney disease No Rodirgue Acevedo MA Patient has chronic kidney disease Care Plan Patient has chronic kidney disease No Rodrigue Acevedo [place] Patient has diabetic neuropathy Care Plan Patient has diabetic neuropathy No Rodrigue Acevedo [place] Patient has diabetic neuropathy Care Plan Patient has diabetic neuropathy No Rodrigue Acevedo [place] Patient has diabetic neuropathy Care Plan Patient has diabetic neuropathy No Rodrigue Acevedo MA documented as of this encounter Visit Diagnoses [...] neuropathy 01/28/2025 Patient has diabetic neuropathy 01/28/2025 Assessment Noted Time PHQ-9 Depression Total Score: 21 025 1:51 PM EDT documented as of this encounter Care Teams Fiberglass Container Winding Operator Relationship Specialty Start Date End Date Fiorella Calvo ANP 230 [place] [address] PCP - General Family Medicine 11/04/20 Kolby Morin, Love [address] [place] [address] Pharmacist Internal Medicine 08/19/23 documented as of this encounter
--- OUTSIDE RECORDS SUMMARY | 2025-02-05 13:43 | XMS_ITS | Encounter Summary ---
Author Organization [employer] Address 75 [facility] 7 [place] [address] Care Team Providers Care Sourcer Name Role Phone Fiorella Calvo Primary Care Provider [phone] Kolby Morin PharmD Unavailable [phone] Reason for Visit * Reason Onset Date Comments Med Refill 11/30/2024 Encounter Details Date Type Department Care Team (Late st Contact Info) Description 11/30/[address] [facility] MEDICINE 230 [place], [place] [phone] Fiorella Calvo ANP 230 [place] [address] Type 2 diabetes mellitus with hyperlipidemia (CMS/HCC) ([facility]/HCC); Diabetic polyneuropathy associated with type [...] [facility] MEDICINE [address] [place] [address] Fiorella Calvo ANP 230 [place] [address] documented as of this encounter Goals Goal [...] documented as of this encounter Care Teams Sourcer Relationship Specialty Start Date End Date Fiorella Calvo ANP 230 [place] [address] PCP - General Family Medicine 11/04/20 Kolby Morin, Love [address] [place] [address] Pharmacist Internal Medicine 08/19/23 documented as of this encounter
--- OUTSIDE RECORDS SUMMARY | 2025-02-05 13:43 | XMS_ITS | Encounter Summary ---
Author Organization [employer] Address 75 [facility] 7t [place] [address] Care Team Providers Care Director Of Strategic Programs Name Role Phone Fiorella Calvo Primary Care Provider [phone] Kolby Morin PharmD Unavailable [phone] Reason for Visit * Reason Comments Med Refill Encounter Details Date Type Department Care Team (Late st Contact Info) Description 10/26/2024 Refill [facility] MEDICINE 230 [place], [place] [phone] Name, MD Jacob 230 [place] [address] Chronic pain of left knee; Osteoarthritis of [...] Office Visit [facility] MEDICINE [address] [place] [address] Fiorella Calvo ANP 230 [place] [address] documented as of this encounter Goals Goal [...] of this encounter Care Teams Director Of Strategic Programs Relationship Specialty Start Date End Date Fiorella Calvo ANP 230 [place] [address] PCP - General Family Medicine 11/04/20 Kolby Morin, KariD 230 [place] [address] Pharmacist Internal Medicine 08/19/23 documented as of this encounter
--- OUTSIDE RECORDS SUMMARY | 2025-02-05 13:43 | XMS_ITS | Encounter Summary ---
Author Organization [employer] Address 75 [facility] 7t [place] [address] Care Team Providers Care Cork Molder Name Role Phone Fiorella Calvo Primary Care Provider [phone] Kolby Morin PharmD Unavailable [phone] Reason for Visit * Reason Onset Date Comments Med Refill 11/17/2024 Encounter Details Date Type Department Care Team (Late st Contact Info) Description 11/17/[address] [facility] MEDICINE 230 [place], [place] [phone] Fiorella Calvo ANP 230 [place] [address] Type 2 diabetes mellitus with obesity ([facility] ([facility]) Social History Tobacco [...] [facility] 230 [place] [address] Fiorella Calvo ANP 230 [place] [address] documented as of this encounter Goals Goal [...] documented as of this encounter Care Teams Cork Molder Relationship Specialty Start Date End Date Fiorella Calvo ANP [address] [place] [address] PCP - General Family Medicine 11/04/20 Kolby Morin, KariD [address] [place] [address] Pharmacist Internal Medicine 08/19/23 documented as of this encounter
--- OUTSIDE RECORDS SUMMARY | 2025-02-05 13:43 | XMS_ITS | Encounter Summary ---
Author Organization [employer] Address 75 [facility] 7t [place] [address] Care Team Providers Care Manager Land Name Role Phone Fiorella Calvo Primary Care Provider [phone] Kolby Morin PharmD Unavailable [phone] Encounter Details Date Type Department Care Team ([facility] st Contact Info) Description 02/03/2025 Telephone [facility] MEDICINE 230 [place], [place] [phone] Holland Burks MD 230 [place], [place] [phone] Social History Tobacco Use Types Packs/Day Years [...] the past 12 months, has t he [employer], gas, oil or water company threatened to [...] encounter Miscellaneous Notes * Telephone Encounter - Camila Turk PharmD - 02/03/2025 3:01 PM EST Pharmacy is requesting an updated CDTM referral with a diagnosis of smoking cessation / tobacco dependence . This is to replace existing referral which does not meet visit requirements. Please send at your earliest convenience. Thank you! documented in this encounter Plan of Treatment Upcoming Encounters Date Type Department Care Team (Late st Contact Info) Description 03/08/2025 2:00 PM EST Office Visit [facility] MEDICINE 230 [place] [address] Fiorella Calvo ANP [address] [place] [address] documented as of this encounter Goals Goal [...] Weekly blood pressure task No Adilia Ragsdaleupe, CRM COORDINATOR Weekly blood pressure task Care Plan Weekly blood pressure task No Melyssa Lorna, CRM COORDINATOR Weekly blood pressure task Care Plan Weekly blood pressure task No Melyssa Lorna, CRM COORDINATOR Patient has chronic kidney disease Care Plan Patient has chronic kidney disease No Okclementineo Lorna, CRM COORDINATOR Patient has chronic kidney disease Care Plan Patient has chronic kidney disease No Okhipo Lorna, CRM COORDINATOR Patient has chronic kidney disease Care Plan Patient has chronic kidney disease No Okhipo, Lorna, CRM COORDINATOR Patient has diabetic neuropathy Care Plan Patient has diabetic neuropathy No Okclementineo Lorna, CRM COORDINATOR Patient has diabetic neuropathy Care Plan Patient has diabetic neuropathy No Okclementineo Lorna, CRM COORDINATOR Patient has diabetic neuropathy Care Plan Patient has diabetic neuropathy No Okclementineo, Lorna, CRM COORDINATOR Weekly blood pressure task Care Plan Weekly blood pressure task No Deana Limon Weekly blood pressure task Care Plan Weekly blood pressure task No Braxton, Deana Weekly blood pressure task [...] Care Plan Patient has diabetic neuropathy No Catrachito Limonessa Patient has diabetic neuropathy Care Plan Patient [...] kidney disease No Mayela Wattandra Patient has chronic kidney disease Care Plan Patient has chronic kidney disease No Shukri Carly Patient has diabetic neuropathy Care Plan Patient has diabetic neuropathy No Shukri Carly Patient has diabetic neuropathy Care Plan Patient has diabetic neuropathy No Shukri Carly Patient has diabetic neuropathy Care Plan Patient has diabetic neuropathy No Mayela Wattandra Weekly blood pressure task [...] as of this encounter Care Teams Manager Land Relationship Specialty Start Date End Date Fiorella Calvo ANP [address] [place] [address] PCP - General Family Medicine 11/04/20 Kolby Morin, Love [address] [place] [address] Pharmacist Internal Medicine 08/19/23 documented as of this encounter
--- OUTSIDE RECORDS SUMMARY | 2025-02-05 13:43 | XMS_ITS | Encounter Summary ---
Author Organization [employer] Address 75 [facility] 7t [place] [address] Care Team Providers Care Machine Deburrer Name Role Phone Fiorella Calvo Primary Care Provider [phone] Kolby Morin PharmD Unavailable [phone] Reason for Visit * Reason Onset Date Comments Med Refill 11/13/2024 Encounter Details Date Type Department Care Team (Late st Contact Info) Description 11/13/2024 Refill [facility] MEDICINE 230 [place], [place] [phone] Fiorella Calvo ANP 230 [place] [address] Type 2 diabetes mellitus with obesity ([facility]) ([facility]) Social History Tobacco Use Types Packs/Day Years [...] 03/08/2025 2:00 PM EST Office Visit [facility] MEDICINE 230 [place] [address] Fiorella Calvo ANP 230 [place] [address] documented as of this encounter Goals Goal [...] documented as of this encounter Care Teams Machine Deburrer Relationship Specialty Start Date End Date Fiorella Calvo ANP [address] [place] [address] PCP - General Family Medicine 11/04/20 Kolby Morin, KariD [address] [place] [address] Pharmacist Internal Medicine 08/19/23 documented as of this encounter
== END 2025-02-05 15:55 | disposition home or self-care (01) ==
LOC: HO.HPSW 13:21
PROVIDERS: PCP Nurse Practitioner Primary Care; Referring Provider Nurse Practitioner Primary Care; Visit Provider Nurse Practitioner Family
DX: J44.9 Chronic obstructive pulmonary disease, unspecified (principal); R04.2 Hemoptysis; F17.210 Nicotine dependence, cigarettes, uncomplicated; Z87.01 Personal history of pneumonia (recurrent)

== ENCOUNTER 2025-02-05 13:21 | Outpatient (REF) | payer MEDICAID, SELFPAY ==
[2025-02-05 18:42] LABS: D Dimer High Sensitivity < 150 NG/ML
[2025-02-08 09:03] LABS: TS Negative Control Passed; TS Panel A 1; TS Panel B 4; TS Positive Control Passed; TSpotTB Negative (Negative)
== END 2025-02-05 13:22 | disposition home or self-care (01) ==
LOC: HO.WFDLDS 13:21
PROVIDERS: PCP Nurse Practitioner Primary Care; Referring Provider Nurse Practitioner Primary Care; Visit Provider Nurse Practitioner Family
DX: J44.9 Chronic obstructive pulmonary disease, unspecified (principal); R91.8 Other nonspecific abnormal finding of lung field; F17.210 Nicotine dependence, cigarettes, uncomplicated; Z11.1 Encounter for screening for respiratory tuberculosis; Z87.01 Personal history of pneumonia (recurrent)
CPT/HCPCS: 36415; 85379; 86481; 94640

== ENCOUNTER 2025-02-08 12:08 | Outpatient (REF) | payer MEDICAID, SELFPAY ==
--- NOTE | ~2025-02-08 | XR_ITS ---
EXAMINATION: XR CHEST CLINICAL INFORMATION: R05.9 - Cough, unspecified COMPARISON: 12/16/2024. TECHNIQUE: 2 views of the chest were obtained. FINDINGS: The cardiac, hilar, and mediastinal contours are normal. The lungs are clear bilaterally. There is no pneumothorax or pleural effusion. There is no focal osseous or soft tissue abnormality. There is a gentle right convex scoliosis of the thoracic spine. XR/XR chest 2V IMPRESSION: No active pulmonary disease. Electronically signed by: Osbaldo Mcmahan MD 02/08/2025 01:00 PM NIKA ROD
--- OUTSIDE RECORDS SUMMARY | 2025-02-08 16:10 | XMS_ITS | Encounter Summary ---
Author Organization [employer] Address 75 [facility] 7t [place] [address] Care Team Providers Care Account Review Specialist Name Role Phone Fiorella Calvo Primary Care Provider Kolby Morin PharmD Unavailable [phone] Reason for Visit * Reason Onset Date Comments Med Refill 02/03/2024 Encounter Details Date Type Department Care Team (Late st Contact Info) Description 02/03/2024 Refill [facility] [address] [place] [address] Fiorella Calvo ANP 230 [place] [address] Chronic left-sided low back pain with left-sided sciatica; Diabetic polyneuropathy associated with type 2 diabetes mellitus (CMS/HCC); Anxiety; Type 2 diabetes mellitus with hyperlipidemia (CMS/HCC) ([facility]/HCC) Social History Tobacco Use Types Packs/Day Years [...] Care Team (Late st Contact Info) Description 02/15/2025 11:30 AM EST Medication Management [facility] [address] [place] [address] Rachael Lambert PharmD 230 [place] [address] 03/08/2025 2:00 PM EST Office [facility] [address] [place] [address] Fiorella Calvo ANP [address] [place] [address] documented as of this encounter Goals Goal [...] documented as of this encounter Care Teams Account Review Specialist Relationship Specialty Start Date End Date Fiorella Calvo ANP [address] [place] [address] PCP - General Family Medicine 11/04/20 Kolby Morin PharmD [address] [place] [address] Pharmacist Internal Medicine 08/19/23 documented as of this encounter
--- OUTSIDE RECORDS SUMMARY | 2025-02-08 16:11 | XMS_ITS | Encounter Summary ---
Author Organization [employer] Address 75 [facility] 7 [place] [address] Care Team Providers Care Police Officer Name Role Phone Fiorella Calvo Primary Care Provider [phone] Kolby Morin PharmD Unavailable [phone] Reason for Visit * Reason Onset Date Comments Med Refill 07/29/2024 Encounter Details Date Type Department Care Team (Late st Contact Info) Description 07/29/2024 Refill [facility] MEDICINE 230 [place], [place] [phone] Fiorella Calvo ANP 230 [place] [address] Type 2 diabetes mellitus with hyperlipidemia (CMS/HCC) ([facility]/HCC); Diabetic polyneuropathy associated with type [...] Description 02/15/2025 11:30 AM EST Medication Management [facility] MEDICINE [address] [place] [address] Rachael Lambert PharmD 230 [place] [address] 03/08/2025 2:00 PM EST Office Visit [facility] MEDICINE [address] [place] [address] Fiorella Calvo ANP [address] [place] [address] documented as of this encounter Goals Goal [...] documented as of this encounter Care Teams Police Officer Relationship Specialty Start Date End Date Fiorella Calvo ANP [address] [place] [address] PCP - General Family Medicine 11/04/20 Kolby Morin PharmD 230 [place] [address] Pharmacist Internal Medicine 08/19/23 documented as of this encounter
--- OUTSIDE RECORDS SUMMARY | 2025-02-08 16:11 | XMS_ITS | Encounter Summary ---
Author Organization [employer] Address 75 [facility] 7t [place] [address] Care Team Providers Care Street Light Inspector Name Role Phone Fiorella Calvo Primary Care Provider [phone] Kolby Morin PharmD Unavailable [phone] Reason for Visit * Reason Onset Date Comments Med Refill 12/18/2024 Encounter Details Date Type Department Care Team (Late st Contact Info) Description 12/18/2024 Refill [facility] MEDICINE 230 [place], [place] [phone] Fiorella Calvo ANP 230 [place] [address] Type 2 diabetes mellitus with hyperlipidemia (HCC); [...] Description 02/15/2025 11:30 AM EST Medication Management [address] [address] Rachael Lambert, PharmD [address] [place] [address] 03/08/2025 2:00 PM EST Office Visit [facility] MEDICINE [address] [place] [address] Fiorella Calvo, RIANA 230 [place] [address] documented as of this encounter Goals Goal [...] documented as of this encounter Care Teams Street Light Inspector Relationship Specialty Start Date End Date Fiorella Calvo ANP 230 [place] [address] PCP - General Family Medicine 11/04/20 Kolby Morin, Love [address] [place] [address] Pharmacist Internal Medicine 08/19/23 documented as of this encounter
--- OUTSIDE RECORDS SUMMARY | 2025-02-08 16:11 | XMS_ITS | Encounter Summary ---
Author Organization [employer] Address 75 [facility] 7 [place] [address] Care Team Providers Care Dinkey Press Operator Name Role Phone Fiorella Calvo Primary Care Provider [phone] Kolby Morin PharmD Unavailable [phone] Reason for Visit * Reason Onset Date Comments Pt-1 08/12/2024 Encounter Details Date Type Department Care Team (Late st Contact Info) Description 08/12/2024 Telephone [facility] MEDICINE 230 [place], [place] [phone] Fiorella Calvo ANP 230 [place], [place] [phone] Pt-1 Social History Tobacco Use Types Packs/Day [...] Y/N: Yes Provider name or facility name: [facility] Facility Address: [address] [place] [address] Escort needed: Y/N: No Do you have a wheelchair: Y/N: No If yes- Manual or electric: N/A Visits: twice a month documented in this encounter Plan of Treatment Upcoming Encounters Date Type Department Care Team (Late st Contact Info) Description 02/15/2025 11:30 AM EST Medication Management [facility] MEDICINE 230 [place] [address] Rachael Lambert, PharmD 230 [place] [address] 03/08/2025 2:00 PM EST Office Visit [facility] MEDICINE 230 [place] [address] Fiorella Calvo ANP 230 [place] [address] documented as of this encounter Goals Goal Patient Goal Type Associated Problems Recent Progress Patient-Stated? Author Quit using tobacco (cigarettes, smokeless, etc) Tobacco Use No Kolby Morin, KariD documented as of this encounter Visit Diagnoses Not on filedocumented in this encounter Additional Health Concerns Assessment Noted Time PHQ-9 Depression Total Score: 26 025 11:43 AM EST documented as of this encounter Care Teams Dinkey Press Operator Relationship Specialty Start Date End Date Fiorella Calvo ANP [address] [place] [address] PCP - General Family Medicine 11/04/20 Kolby Morin, PharmD [address] [place] [address] Pharmacist Internal Medicine 08/19/23 documented as of this encounter
--- OUTSIDE RECORDS SUMMARY | 2025-02-08 16:11 | XMS_ITS | Encounter Summary ---
Author Organization [employer] Address 75 [facility] 7 [place] [address] Care Team Providers Care Skate Hop Name Role Phone Fiorella Calvo Primary Care Provider [phone] Kolby Morin PharmD Unavailable [phone] Reason for Visit * Reason Onset Date Comments Med Refill 06/28/2024 Encounter Details Date Type Department Care Team (Late st Contact Info) Description 06/28/2024 Refill [facility] MEDICINE 230 [place], [place] [phone] Fiorella Calvo ANP 230 [place] [address] Type 2 diabetes mellitus with hyperlipidemia (CMS/HCC) ([facility]/HCC); Diabetic polyneuropathy associated with type 2 [...] Description 02/15/2025 11:30 AM EST Medication Management [facility] MEDICINE [address] [place] [address] Rachael Lambert PharmD 230 [place] [address] 03/08/2025 2:00 PM EST Office Visit [facility] MEDICINE [address] [place] [address] Fiorella Calvo ANP 230 [place] [address] documented as of this encounter Goals Goal [...] documented as of this encounter Care Teams Skate Hop Relationship Specialty Start Date End Date Fiorella Calvo ANP 230 [place] [address] PCP - General Family Medicine 11/04/20 Kolby Morin PharmD 230 [place] [address] Pharmacist Internal Medicine 08/19/23 documented as of this encounter
--- OUTSIDE RECORDS SUMMARY | 2025-02-08 16:11 | XMS_ITS | Encounter Summary ---
Author Organization [employer] [facility] Address 75 [facility] 7t [place] [address] Care Team Providers Care Data Migration Consultant Name Role Phone Fiorella Calvo Primary Care Provider [phone] Kolby Morin PharmD Unavailable [phone] Reason for Visit * Reason Onset Date Comments Med Refill 10/20/2023 Encounter Details Date Type Department Care Team (Late st Contact Info) Description 10/20/2023 Refill [facility] MEDICINE 230 [place], [place] [phone] Fiorella Calvo ANP 230 [place] [address] Type 2 diabetes mellitus with hyperlipidemia (CMS/HCC) [...] Description 02/15/2025 11:30 AM EST Medication Management [facility] MEDICINE [address] [place] [address] Rachael Lambert PharmD 230 [place] [address] 03/08/2025 2:00 PM EST Office Visit [facility] MEDICINE [address] [place] [address] [phone] Fiorella Calvo ANP 230 [place] [address] documented as of this encounter Goals Goal [...] documented as of this encounter Care Teams Data Migration Consultant Relationship Specialty Start Date End Date Fiorella Calvo ANP [address] [place] [address] PCP - General Family Medicine 11/04/20 Kolby Morin, KariD [address] [place] [address] Pharmacist Internal Medicine 08/19/23 documented as of this encounter
--- OUTSIDE RECORDS SUMMARY | 2025-02-08 16:11 | XMS_ITS | Encounter Summary ---
Author Organization [employer] Address 75 [facility] 7t [place] [address] Care Team Providers Care Biofuels Product Manager Name Role Phone Fiorella Calvo Primary Care Provider [phone] Kolby Morin PharmD Unavailable [phone] Reason for Visit * Reason Onset Date Comments Med Refill 12/22/2024 Encounter Details Date Type Department Care Team (Late st Contact Info) Description 12/22/2024 Refill [facility] MEDICINE 230 [place], [place] [phone] Fiorella Calvo ANP 230 [place] [address] Type 2 diabetes mellitus with hyperlipidemia (HCC); [...] Description 02/15/2025 11:30 AM EST Medication Management [facility] MEDICINE [address] [place] [address] Rachael Lambert PharmD [address] [place] [address] 03/08/2025 2:00 PM EST Office Visit [facility] MEDICINE [address] [place] [address] Fiorella Calvo ANP [address] [place] [address] documented as of this encounter Goals Goal [...] documented as of this encounter Care Teams Biofuels Product Manager Relationship Specialty Start Date End Date Fiorella Calvo ANP 230 [place] [address] PCP - General Family Medicine 11/04/20 Kolby Morin, Love 230 [place] [address] Pharmacist Internal Medicine 08/19/23 documented as of this encounter
--- OUTSIDE RECORDS SUMMARY | 2025-02-08 16:11 | XMS_ITS | Encounter Summary ---
Author Organization [employer] Address [address] [place] [address] 7 [place] [address] Care Team Providers Care Gluer And Slicer Hand Name Role Phone Fiorella Calvo Primary Care Provider [phone] Kolby Morin PharmD Unavailable [phone] Reason for Visit * Reason Onset Date Comments Med Refill 05/25/2024 Encounter Details Date Type Department Care Team (Late st Contact Info) Description 05/25/2024 Refill [facility] [address] [place], [place] [phone] Jyoti Melendez NP [address] [place] [address] Type 2 diabetes mellitus with hyperlipidemia (CMS/HCC) ([facility]/HCC); Diabetic polyneuropathy associated with type 2 diabetes [...] Description 02/15/2025 11:30 AM EST Medication Management [facility] [address] [place] [address] Rachael Lambert, KariD [address] [place] [address] 03/08/2025 2:00 PM EST Office Visit [facility] [address] [place] [address] Fiorella Calvo ANP [address] [place] [address] documented as of this encounter Goals Goal [...] documented as of this encounter Care Teams Gluer And Slicer Hand Relationship Specialty Start Date End Date Fiorella Calvo ANP [address] [place] [address] PCP - General Family Medicine 11/04/20 Kolby Morin, Love [address] [place] [address] Pharmacist Internal Medicine 08/19/23 documented as of this encounter
--- OUTSIDE RECORDS SUMMARY | 2025-02-08 16:11 | XMS_ITS | Encounter Summary ---
Author Organization [employer] Address [address] [facility] 7 [place] [address] Care Team Providers Care Drilling Field Operator Name Role Phone Fiorella Calvo Primary Care Provider [phone] Kolby Morin PharmD Unavailable [phone] Encounter Details Date Type Department Care Team ([facility] Contact Info) Description 02/08/2025 Telephone [facility] [address] [place] [address] Andria Barrios, RN [address] [place] [address] Social History Tobacco Use Types Packs/Day Years [...] encounter Miscellaneous Notes * Telephone Encounter - Andria Barrios RN - 02/08/2025 3:18 PM EST TC to pt's pharmacy regarding message below. Per pharmacist Tramadol prescription will be ready forpt to picker packer in an hour. TC to pt, pt notified, verbalized understanding. documented in this encounter Plan of Treatment Upcoming Encounters Date Type Department Care Team (Late st Contact Info) Description 02/15/2025 11:30 AM EST Medication Management [facility] [address] [place] [address] Rachael Lambert, PharmD [address] [place] [address] 03/08/2025 2:00 PM EST Office Visit [facility] [address] [place] [address] Fiorella Calvo, ANP [address] [place] [address] documented as of this encounter Goals Goal [...] Weekly blood pressure task No Melyssa Lorna, CUSTOMS GUARD Weekly blood pressure task Care Plan Weekly blood pressure task No Okhipo, Lorna, CUSTOMS GUARD Weekly blood pressure task Care Plan Weekly blood pressure task No Okhipo, Lorna, CUSTOMS GUARD Patient has chronic kidney disease Care Plan Patient has chronic kidney disease No Okhipo, Lorna, CUSTOMS GUARD Patient has chronic kidney disease Care Plan Patient has chronic kidney disease No Okhipo, Lorna, CUSTOMS GUARD Patient has chronic kidney disease Care Plan Patient has chronic kidney disease No Okhipo, Lorna, CUSTOMS GUARD Patient has diabetic neuropathy Care Plan Patient has diabetic neuropathy No Okhipo, Lorna, CUSTOMS GUARD Patient has diabetic neuropathy Care Plan Patient has diabetic neuropathy No Okhipo, Lorna, CUSTOMS GUARD Patient has diabetic neuropathy Care Plan Patient has diabetic neuropathy No Okhipo, Lorna, CUSTOMS GUARD Weekly blood pressure task Care Plan Weekly [...] Patient has diabetic neuropathy No Braxton Deana Weekly blood pressure task [...] Plan Patient has diabetic neuropathy No Camila Turk, PharmD Weekly blood pressure task Care Plan [...] Care Plan Weekly blood pressure task No PachecoMarkga, PROJECT ARCHIVIST Weekly blood pressure task Care Plan Weekly blood pressure task No Mark Pachecoga, PROJECT ARCHIVIST Weekly blood pressure task Care Plan Weekly blood pressure task No PachecoMarkga, PROJECT ARCHIVIST Patient has chronic kidney disease Care Plan Patient has chronic kidney disease No PachecoMarkga, PROJECT ARCHIVIST Patient has chronic kidney disease Care Plan Patient has chronic kidney disease No Mark Pachecoga, PROJECT ARCHIVIST Patient has chronic kidney disease Care Plan Patient has chronic kidney disease No PachecoMarkga, PROJECT ARCHIVIST Patient has diabetic neuropathy Care Plan Patient has diabetic neuropathy No Pacheco, Yoselin, PROJECT ARCHIVIST Patient has diabetic neuropathy Care Plan Patient has diabetic neuropathy No Pacheco, Yoselin, PROJECT ARCHIVIST Patient has diabetic neuropathy Care Plan Patient has diabetic neuropathy No PachecoMarkga, PROJECT ARCHIVIST Weekly blood pressure task Care Plan Weekly [...] has diabetic neuropathy No Andria Barrios RN Weekly blood pressure [...] Weekly blood pressure task No Pacheco, Yoselin, PROJECT ARCHIVIST Weekly blood pressure task Care Plan Weekly blood pressure task No Pacheco, Yoselin, PROJECT ARCHIVIST Weekly blood pressure task Care Plan Weekly blood pressure task No Pacheco, Yoselin, PROJECT ARCHIVIST Patient has chronic kidney disease Care Plan Patient has chronic kidney disease No Pacheco, Yoselin, PROJECT ARCHIVIST Patient has chronic kidney disease Care Plan Patient has chronic kidney disease No Pacheco, Yoselin, PROJECT ARCHIVIST Patient has chronic kidney disease Care Plan Patient has chronic kidney disease No Pacheco, Yoselin, PROJECT ARCHIVIST Patient has diabetic neuropathy Care Plan Patient has diabetic neuropathy No Pacheco, Yoselin, PROJECT ARCHIVIST Patient has diabetic neuropathy Care Plan Patient has diabetic neuropathy No Pacheco, Yoselin, PROJECT ARCHIVIST Patient has diabetic neuropathy Care Plan Patient has diabetic neuropathy No Pacheco, Yoselin, PROJECT ARCHIVIST Weekly blood pressure task Care Plan Weekly blood pressure task No Abran Meltonica Weekly blood pressure task Care Plan Weekly blood pressure task No Coni Melton Weekly blood pressure task Care Plan Weekly blood pressure task No Abran Meltonica Patient has chronic kidney disease Care Plan Patient has chronic kidney disease No Abran Meltonica Patient has chronic kidney disease Care Plan Patient has chronic kidney disease No Geroniom Coni Patient has chronic kidney disease Care Plan Patient has chronic kidney disease No Abran Meltonica Patient has diabetic neuropathy Care Plan Patient has diabetic neuropathy No Coni Melton Patient has diabetic neuropathy Care Plan Patient has diabetic neuropathy No Abran Meltonica Patient has diabetic neuropathy Care Plan Patient has diabetic neuropathy No Geronimo Coni Weekly blood pressure task Care Plan Weekly [...] diabetic neuropathy 02/05/2025 Weekly blood pressure task 02/08/2025 Weekly blood pressure task 02/08/2025 Weekly blood pressure task 02/08/2025 Patient has chronic kidney disease 02/08/2025 Patient has chronic kidney disease 02/08/2025 Patient has chronic kidney disease 02/08/2025 Patient has diabetic neuropathy 02/08/2025 Patient has diabetic neuropathy 02/08/2025 Patient has diabetic neuropathy 02/08/2025 Weekly blood pressure task 02/08/2025 Weekly blood pressure task 02/08/2025 Weekly blood pressure task 02/08/2025 Patient has chronic kidney disease 02/08/2025 Patient has chronic kidney disease 02/08/2025 Patient has chronic kidney disease 02/08/2025 Patient has diabetic neuropathy 02/08/2025 Patient has diabetic neuropathy 02/08/2025 Patient has diabetic neuropathy 02/08/2025 Weekly blood pressure task 02/08/2025 Weekly blood pressure task 02/08/2025 Weekly blood pressure task 02/08/2025 Patient has chronic kidney disease 02/08/2025 Patient has chronic kidney disease 02/08/2025 Patient has chronic kidney disease 02/08/2025 Patient has diabetic neuropathy 02/08/2025 Patient has diabetic neuropathy 02/08/2025 Patient has diabetic neuropathy 02/08/2025 Assessment Noted Time PHQ-9 Depression Total Score: 21 025 1:51 PM EDT documented as of this encounter Care Teams Drilling Field Operator Relationship Specialty Start Date End Date Fiorella Calvo ANP [address] [place] [address] PCP - General Family Medicine 11/04/20 Kolby Morin, KariD [address] [place] [address] Pharmacist Internal Medicine 08/19/23 documented as of this encounter
--- OUTSIDE RECORDS SUMMARY | 2025-02-08 16:11 | XMS_ITS | Encounter Summary ---
Author Organization [employer] Address 75 [facility] 7t [place] [address] Care Team Providers Care Boxing Trainer Name Role Phone Fiorella Calvo Primary Care Provider [phone] Kolby Morin PharmD Unavailable [phone] Reason for Visit * Reason Onset Date Comments Med Refill 05/09/2024 Encounter Details Date Type Department Care Team (Late st Contact Info) Description 05/09/[address] [facility] [address] [place], [place] [phone] Jyoti Melendez NP [address] [place] [address] Type 2 diabetes mellitus with hyperlipidemia ([facility]/HCC) ([facility]) Social History Tobacco [...] 02/15/2025 11:30 AM EST Medication Management [facility] [address] [place] [address] Rachael Lambert, KariD [address] [place] [address] 03/08/2025 2:00 PM EST Office Visit [facility] [address] [place] [address] Fiorella Calvo, ANP [address] [place] [address] documented as of this encounter Goals Goal [...] documented as of this encounter Care Teams Boxing Trainer Relationship Specialty Start Date End Date Fiorella Calvo ANP [address] [place] [address] PCP - General Family Medicine 11/04/20 Kolby Morin, Love [address] [place] [address] Pharmacist Internal Medicine 08/19/23 documented as of this encounter
--- OUTSIDE RECORDS SUMMARY | 2025-02-08 16:11 | XMS_ITS | Encounter Summary ---
Author Organization [employer] Address 75 [facility] 7t [place] [address] Care Team Providers Care Career Discovery Teacher Name Role Phone Fiorella Calvo Primary Care Provider [phone] Kolby Morin PharmD Unavailable [phone] Encounter Details Date Type Department Care Team ([facility] st Contact Info) Description 01/11/2025 Results Follow-Up [facility] [address] [place], [place] [phone] Fiorella Calvo ANP [address] [place] [address] CT Abdomen Pelvis w/ Contrast Social History [...] the past 12 months, has t he [employer] gas, oil or water company threatened to [...] 11:30 AM EST Medication Management [facility] [address] [place] [address] Rachael Lambert, PharmD [address] [place] [address] 03/08/2025 2:00 PM EST Office Visit [facility] [address] [place] [address] Fiorella Calvo ANP [address] [place] [address] documented as of this encounter Goals Goal Patient Goal Type Associated Problems Recent Progress Patient-Stated? Author Quit using tobacco (cigarettes, smokeless, etc) Tobacco Use No Kolby Morin, KariD documented as of this encounter Visit Diagnoses Not on filedocumented in this encounter Additional Health Concerns Assessment Noted Time PHQ-9 Depression Total Score: 26 025 11:43 AM EST documented as of this encounter Care Teams Career Discovery Teacher Relationship Specialty Start Date End Date Fiorella Calvo ANP [address] [place] [address] PCP - General Family Medicine 11/04/20 Kolby Morin, PharmD [address] [place] [address] Pharmacist Internal Medicine 08/19/23 documented as of this encounter
--- OUTSIDE RECORDS SUMMARY | 2025-02-08 16:11 | XMS_ITS | Encounter Summary ---
Author Organization [employer] Address 75 [facility] 7t [place] [address] Care Team Providers Care Fabrication And Assembly Supervisor Name Role Phone Fiorella Calvo Primary Care Provider [phone] Kolby Morin PharmD Unavailable [phone] Reason for Visit * Reason Onset Date Comments Med Refill 01/01/2025 Encounter Details Date Type Department Care Team (Late st Contact Info) Description 01/01/2025 Refill [facility] [address] [place], [place] [phone] Fiorella Calvo ANP [address] [place] [address] Type 2 diabetes mellitus with obesity; Type [...] Description 02/15/2025 11:30 AM EST Medication Management [facility] [address] [place] [address] Rachael Lambert, KariD [address] [place] [address] 03/08/2025 2:00 PM EST Office Visit [facility] [address] [place] [address] Fiorella Calvo ANP [address] [place] [address] documented as of this encounter Goals Goal [...] documented as of this encounter Care Teams Fabrication And Assembly Supervisor Relationship Specialty Start Date End Date Fiorella Calvo ANP [address] [place] [address] PCP - General Family Medicine 11/04/20 Kolby Morin, Love [address] [place] [address] Pharmacist Internal Medicine 08/19/23 documented as of this encounter
--- OUTSIDE RECORDS SUMMARY | 2025-02-08 16:11 | XMS_ITS | Encounter Summary ---
Author Organization [employer] Address 75 [facility] 7 [place] [address] Care Team Providers Care Analytical Manager Name Role Phone Fiorella Calvo Primary Care Provider [phone] Kolby Morin PharmD Unavailable [phone] Reason for Visit * Reason Onset Date Comments Med Refill 03/23/2024 Encounter Details Date Type Department Care Team (Late st Contact Info) Description 03/23/2024 Refill [facility] [address] [place], [place] [phone] Fiorella Calvo ANP [address] [place] [address] Type 2 diabetes mellitus with hyperlipidemia (CMS/HCC) [...] Description 02/15/2025 11:30 AM EST Medication Management [facility] [address] [place] [address] Rachael Lambert PharmD [address] [place] [address] 03/08/2025 2:00 PM EST Office Visit [facility] [address] [place] [address] Fiorella Calvo ANP [address] [place] [address] documented as of this encounter Goals Goal [...] documented as of this encounter Care Teams Analytical Manager Relationship Specialty Start Date End Date Fiorella Calvo ANP [address] [place] [address] PCP - General Family Medicine 11/04/20 Kolby Morin PharmD [address] [place] [address] Pharmacist Internal Medicine 08/19/23 documented as of this encounter
--- OUTSIDE RECORDS SUMMARY | 2025-02-08 16:11 | XMS_ITS | Encounter Summary ---
Author Organization [employer] Address 75 [facility] 7t [place] [address] Care Team Providers Care Acid Pump Operator Name Role Phone Fiorella Calvo Primary Care Provider Kolby Morin PharmD Unavailable [phone] Reason for Visit * Reason Onset Date Comments Medication Question 12/17/2024 Durable Medical Equipment 12/17/2024 Encounter Details Date Type Department Care Team (Late st Contact Info) Description 12/17/2024 Telephone [facility] [address] [place], [place] [phone] Fiorella Calvo ANP [address] [place] [address] Medication Question; Durable Medical Equipment Social History [...] script for a nebulizer Contact pt at [phone] (emirati) documented in this encounter Plan of Treatment Upcoming Encounters Date Type Department Care Team ([facility] st Contact Info) Description 02/15/2025 11:30 AM EST Medication Management [address] [address] Rachael Lambert, KariD [address] [place] [address] 03/08/2025 2:00 PM EST Office Visit [address] [address] Fiorella Calvo ANP [address] [place] [address] documented as of this encounter Goals Goal Patient Goal Type Associated Problems Recent Progress Patient-Stated? Author Quit using tobacco (cigarettes, smokeless, etc) Tobacco Use No Kolby Morin, Love documented as of this encounter Visit Diagnoses Not on filedocumented in this encounter Additional Health Concerns Assessment Noted Time PHQ-9 Depression Total Score: 26 025 11:43 AM EST documented as of this encounter Care Teams Acid Pump Operator Relationship Specialty Start Date End Date Fiorella Calvo ANP [address] [place] [address] PCP - General Family Medicine 11/04/20 Kolby Morin, KariD [address] [place] [address] Pharmacist Internal Medicine 08/19/23 documented as of this encounter
--- OUTSIDE RECORDS SUMMARY | 2025-02-08 16:11 | XMS_ITS | Patient Health Record ---
Author Organization [facility] Address [facility] [address] [place] [address] Care Team Providers Care Fire Operations Forester Name Role Phone OMAYRA SIEGEL Primary Care Provider [phone] Allergies No Known Allergies Reason For Referral [...] PM; Duration: 30 days 07/17/2021 Active Pen [place] 516 31G X 8 MM Miscellaneous as directed SQ once daily; Duration: 30 days 07/17/2021 Active Actos 15 MG Tablet 1 tablet Orally Once a day D/C Glipizide; Duration: 30 day(s) 06/01/2021 Active Tricor 145 MG Tablet 1 tablet Orally Onc e a day D/C Lopid; Duration: 30 days 06/01/2021 Active Immunizations Vaccine Route Administration Date Status Comme [facility] ADM SARSCV2 30MCG TRS-SUCR B (Tapon dariel) IM Intramuscular 05/19/2021 Administered [employer] COVID-19 2da dosis IM Intramuscular 12/08/2020 Administered [...] Supermercados, [facility] [place] viajado [place] o hayes estado en contacto con alguien que haya estado fu[place] en los pasados 14 luna No Se hayes vacunado contra el COVID-19 3 dosis [place] SIM History Social Info Question Answer Notes [...] de maltrato No ..Viaje reciente fuera de [place] <2 meses No Nececidades para comunicacion o [...] Do you drink alcohol? Socially Section Notes: JAYNA RICHARDS RN, ADN Lic. [id number], EWA 05/11/2021 06:00:05 PM > BRAND[place]. [id number], ASHWIN 07/17/2021 01:50:44 PM > OPAL TAYLOR RN, BSN Li c. [id number], ABIGAIL Amber 08/08/2021 01:15:14 PM > JOSE ARMANDO DIAZ RN, BSN Lic. 7 [id number], NATALY M 04/25/2020 09:59:43 AM > JOSE ARMANDO DIAZ RN, BSN Lic. [id number], NATALY M 06/28/2021 11:10:25 AM > WISEMAN RN, BSN Lic. [id number], BRADY B 10/16/2019 03:44:18 PM > TINA BATES RN, BSN Lic. 3 [id number], LUCIA 11/06/2019 07:58:39 AM > JOSE ARMANDO DIAZ RN, BSN Lic. [id number], NATALY M 03/10/2020 11:43:13 AM > JOSE ARMANDO DIAZ RN, BSN Lic. [id number], NATALY M 03/16/2020 11:21:17 AM > JOSE ARMANDO DIAZ RN, BSN Lic. [id number], NATALY M 04/07/2020 11:18:34 AM > JOSE ARMANDO DIAZ RN, BSN Lic. 7 [id number], NATALY M 06/23/2020 10:18:09 AM > JOSE ARMANDO DIAZ RN, BSN Lic. [id number], NATALY M 12/03/2020 10:16:04 AM > JOSE ARMANDO DIAZ RN, BSN Lic. [id number], NATALY M 12/14/2020 09:34:35 AM > JOSE ARMANDO DIAZ RN, BSN Lic. [id number], NATALY M 01/26/2021 10:02:26 AM > JAYNA RICHARDS RN, ADN Lic. 1996, EWA 06/01/2021 08:05:14 PM > SPIKE NEAL RN, ADN Lic. 2 [id number] 06/10/2021 02:03:29 PM > JOSE ARMANDO DIAZ RN, BSN Lic. 7 [id number], NATALY Cuellar 06/14/2021 08:19:05 AM > JOSE ARMANDO DIAZ RN, BSN Lic. 7 [id number], NATALY Cuellar 07/06/2021 01:30:25 PM > WISEMAN RN, BSN Lic. [id number], BRADY Castillo 10/16/2019 03:44:18 PM > Problems Problem Type SNOMED Code ICD Code Onset Dates Problem Status W/U Status Risk Notes Problem Iron deficiency anemia (36799611) Other iron deficiency anemias (D50.8) Active confirmed Problem Diabetic renal disease (019531469) Type 2 diabetes mellitus with other diabetic kidney complication (E11.29) Active confirmed Problem Diabetic autonomic neuropathy due to type 2 diabetes mellitus (122750530) Type 2 diabetes mellitus with diabetic autonomic (poly)neuropathy (E11.43) Active confirmed Problem Morbid obesity (disorder) (628735691) Morbid (severe) obesity due to excess calories (E66.01) Active confirmed Problem Chronic pain (26397159) Other chronic pain (G89.29) Active confirmed Problem Mild intermittent asthma (329581945) Mild intermittent asthma, uncomplicated (J45.20) Active confirmed Problem Human papilloma viru s deoxyribonucleic acid test positive, high risk on vaginal specimen (156419639697824) Cervical high risk human papillomavirus (HPV) DNA test positive (R87.810) Active confirmed Problem Abnormal findings on diagnostic imaging of breast (908776691) Other abnormal and inconclusive findings on diagnostic imaging of breast (R92.8) Active confirmed Problem Hyperglycemia due to type 2 diabetes mellitus (485227241613671) Type 2 diabetes mellitus with hyperglycemia (E11.65) Active confirmed Problem Hyperglycemia due to type 2 diabetes mellitus (301386540362606) Type 2 diabetes mellitus with hyperglycemia, without long-term current use of insulin (E11.65) Active confirmed Problem Smoker (98863743) Smoker (F17.200) Active confi rmed Problem Hypertriglyceridemia (233281672) Hypertriglyceridemia (E78.1) Active confirmed Problem Oropharyngeal dysphagia (14598231) Oropharyngeal dysphagia (R13.12) Active confirmed Problem Obese class II (818335339038557) BMI 39.0-39.9,adult (Z68.39) Active confirmed Problem Hyperglycemia due to type 2 diabetes mellitus (763595372392651) Uncontrolled type 2 diabetes mellitus with hyperglycemia (E11.65) Active confirmed Problem Type II diabetes mellitus uncontrolled (796810441) Diabetes type 2, uncontrolled (E11.65) Active confirmed Plan Of Treatment Pending Test Test Name Order Date US BREAST BILATERAL 07/14/2018 HERPES I, II IGM 05/15/2021 URINE [id number] 05/15/2021 Future Test Test Name Order Date HCG QUAL () 01/05/2019 Insurance Providers Payer Name Payer Address Payer Phone Subscriber Number Group Number Insured Name Patient Relationship to Insured Coverage Start Date Coverage End Date TRIPLE S CAP PSG [address] [place] [address] [id number] F Teena Garza Self - patient is the insured 9 2 Medical (General) History Medical History History ICD Code ANEMIA VIRUS DE PAPILOMA .Hipertension .Diabetes Other headache syndrome G44.89 Type 2 diabetes mellitus with hyperglyce shama E11.65 Hospitalization History Reason Date(Month/Year) [facility] ([facility]) 10/2018
--- OUTSIDE RECORDS SUMMARY | 2025-02-08 16:11 | XMS_ITS | Clinical Summary ---
Author Organization [facility] Address [address] [place] [address] Phone Care Team Providers Care Furnace Liner Name Role Phone Lorna Ragsdale ROCK ROOM WORKER Primary Care Provider [phone] Encounters Date Type Department Care Team Description 01/20/2025 2:57 PM EST - 01/20/2025 11:59 PM EST Hospital Encounter [facility] PET Scan [address] [place] [address] Other nonspecific abnormal finding of [...] Signed Date: 01/25/2025 05:34 ET Workstation ID: [id number] Transcribed By: Self Edit Transcribed Date: 01/25/2025 [...] abdomen and pelvis dated December 2024 from [facility]. FINDINGS: HEAD AND NECK: Nonspecific focal [...] No abnormal FDG activity. Procedure Note Andra Hisnon MD - 01/25/2025 INDICATION: RIGHT LOWER LOBE [...] chest abdomen andpelvis dated December 2024 from [facility]. FINDINGS: HEAD AND NECK: Nonspecific focal [...] Signed Date: 01/25/2025 05:34 ET Workstation ID: [id number] Transcribed By: Self Edit Transcribed Date: 01/25/2025 05:09 ET Fiorella Calvo NP IMG NM PROCEDURES Final Result from Last 3 Months Insurance MEDICAID - [place] Care Teams Furnace Liner Relationship Specialty Start Date End Date Lorna Ragsdale FNP [address] [place] [id number] PCP - General Family Medicine 02/05/25
--- OUTSIDE RECORDS SUMMARY | 2025-02-08 16:11 | XMS_ITS | Encounter Summary ---
Author Organization [employer] Address [address] [facility] [address] [place] [address] Care Team Providers Care Inserting Operator Name Role Phone Fiorella Calvo Primary Care Provider [phone] Kolby Morin PharmD Unavailable [phone] Reason for Visit * Reason Onset Date Comments Med Refill 12/15/2023 Encounter Details Date Type Department Care Team (Late st Contact Info) Description 12/15/2023 Refill [facility] [address] [place] [address] Fiorella Calvo ANP [address] [place] [address] Chronic left-sided low back pain with left-sided [...] Description 02/15/2025 11:30 AM EST Medication Management [address] [address] Rachael Lambert PharmD [address] [place] [id number] 03/08/2025 2:00 PM EST Office Visit [address] [address] Fiorella Calvo ANP [address] [place] [id number] documented as of this encounter Goals Goal [...] documented as of this encounter Care Teams Inserting Operator Relationship Specialty Start Date End Date Fiorella Calvo ANP [address] [place] [id number] PCP - General Family Medicine 11/04/20 Kloby Morin PharmD [address] [place] [id number] Pharmacist Internal Medicine 08/19/23 documented as of this encounter
--- OUTSIDE RECORDS SUMMARY | 2025-02-08 16:11 | XMS_ITS | Encounter Summary ---
Author Organization [employer] Address [address] [facility] [address] [place] [address] Care Team Providers Care [employer] Manager Name Role Phone Fiorella Calvo Primary Care Provider [phone] Kolby Morin PharmD Unavailable [phone] Reason for Visit * Reason Onset Date Comments Med Refill 05/09/2024 Encounter Details Date Type Department Care Team (Late st Contact Info) Description 05/09/2024 Refill [facility] [address] [place], [place] [id number] Fiorella Calvo ANP [address] [place] [address] Type 2 diabetes mellitus with hyperlipidemia ([facility]CC) ([facility]) Social History Tobacco Use Types [...] EST Medication Management [facility] [address] [place] [phone] Rachael Lambert, KariD [address] [place] [phone] 03/08/2025 2:00 PM EST Office Visit [facility] [address] [place] [phone] Fiorella Calvo, ANP [address] [place] [phone] documented as of this encounter Goals Goal [...] documented as of this encounter Care Teams [employer] Manager Relationship Specialty Start Date End Date Fiorella Calvo ANP [address] [place] [address] PCP - General Family Medicine 11/04/20 Kolby Morin PharmD [address] [place] [address] Pharmacist Internal Medicine 08/19/23 documented as of this encounter
--- OUTSIDE RECORDS SUMMARY | 2025-02-08 16:11 | XMS_ITS | Clinical Summary ---
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 GLUCOSE Routine 02/01/2025 9:26 AM EST [...] Maintenance Results * XR Chest 2 Views (02/08/2025 12:46 PM EST) Only the most recent of2 resultswithin the time period is included. Anatomical Region Laterality Modality Chest Radiographic Heather ging 02/08/2025 12:4 6 PM EST Narrative 02/08/2025 1:02 PM EST [place] [address] XRay Report Signed Patient: Teena Garza MR#: [id number] : 1980 Acct:[id number] Age/Sex: 44 / F ADM Date: 02/08/25 Loc: TALA Attending Dr: Araseli Shoemaker NP Ordering Physician: Araseli Shoemaker NP Date of Service: 02/08/25 Procedure(s): XR chest 2V Accession Number(s): [id number] cc: LOLIS ADAM LOAD TALLIER; Araseli Shoemaker NP Reason for Exam: R05.9 - Cough, unspecified EXAMINATION: XR CHEST CLINICAL INFORMATION: R05.9 - Cough, unspecified COMPARISON: 12/16/2024. TECHNIQUE: 2 views of the chest were obtained. FINDINGS: The cardiac, hilar, and mediastinal contours are normal. The lungs are clear bilaterally. There is no pneumothorax or pleural effusion. There is no focal osseous or soft tissue abnormality. There is a gentle right convex scoliosis of the thoracic spine. XR/XR chest 2V IMPRESSION: No active pulmonary disease. Electronically signed by: Osbaldo Mcmahan MD 02/08/2025 01:00 PM EST RP Dictated By: Osbaldo Mcmahan MD Signed By: <Electronically signed by Osbaldo Mcmahan MD in OV> 02/08/25 1300 DD/ 1246 TD/TT: 02/08/25 1249 Writer Editor: Procedure Note Donotuseinterpreter, Image - 02/08/[address] [address] XRay Report Signed Patient: Teena Garza MMR#: [id number] : 1980Acct:[id number] Age/Sex: 44 / FADM Date: 02/08/25 Loc: TALA Attending Dr: Araseli Shoemaker NP Ordering Physician: Araseli Shoemaker NP Date of Service: 02/08/25 Procedure(s): XR chest 2V Accession Number(s): [id number] cc: LOLIS ADAM LOAD TALLIER; Araseli Shoemaker NP Reason for Exam: R05.9 - Cough, unspecified EXAMINATION: XR CHEST CLINICAL INFORMATION: R05.9 - Cough, unspecified COMPARISON: 12/16/2024. TECHNIQUE: 2 views of the chest were obtained. FINDINGS: The cardiac, hilar, and mediastinal contours are normal. The lungs are clear bilaterally. There is no pneumothorax or pleural effusion. There is no focal osseous or soft tissue abnormality. There is a gentle right convex scoliosis of the thoracic spine. XR/XR chest 2V IMPRESSION: No active pulmonary disease. Electronically signed by: Osbaldo Mcmahan MD 02/08/2025 01:00 PM EST RP Dictated By: Osbaldo Mcmahan MD Signed By: <Electronically signed by Osbaldo Mcmahan MD in OV> 02/08/25 1300 DD/ 1246 TD/TT: 02/08/25 1249 Writer Editor: [facility] External Provider IMG XR PROCEDURES Final Result * D Dimer High Sensitivity (02/05/2025 2:36 PM EST) D Dimer High Sensitivity <150 NG/ML [facility] Comment:D-DIMER HS REFERENCE RANGENote: Our assay reports D-Dimer Units (D- DU).The cut-off value for venous thromboembolic (VTE) disease is230 ng/mL. This value has a very high negative predictivevalue when the patient has a low to moderate clinicalprobability of VTE.The upper limit of normal is 243 ng/mL. 02/05/2025 2:36 PM EST 02/05/2025 6:22 PM EST us Generic External Data Provider LAB BLOOD ORDERAB LES Final Result [facility] [address] [place] [phone] * T-SPOT??.TB (02/05/2025 2:36 PM EST) Only the most recent of2 resultswithin the time period is included. [facility] T Spot TB Negative Negative [facility] Comment:A negative test resu lt does not exclude the possibilityof exposure to or infection with Mycobacteriumtuberculosis (M. tuberculosis). Patients with recentexposure to TB infected individuals exhibiting anegative T-SPOT.TB result should be considered forretesting within 6 weeks or if other relevant clinicalsymptoms indicate. Results from T-SPOT.TB testing mustbe used in conjunction with each individual'sepidemiological history, current medical status,and results of other diagnostic evaluations.The T-SPOT.TB test is qualitative and results arereported as positive, borderline, or negative, giventhat the test controls perform as expected. In linewith the Centers for Disease Control and Prevention's2010 recommendation to report quantitative measurementsalongside the qualitative result, the laboratoryprovides spot counts for informational purposes only.The T-SPOT.TB test should not be interpreted as aquantitative test. TS PANEL A 1 [facility] TS PANEL B 4 [facility] Negative Control Passed [facility] Positive Control Passed [facility] Comment:For additional infor mation, please refer [email or web address] ([email or web address]/[email or web address](This link is being provided for informational/educational purposes only.)THIS TEST WAS PERFORMED AT:[email or web address] [id number] [place] [address]EDSDNNTGEOVANNY LOUISE MD,PHD 02/05/2025 2:36 PM EST 02/05/2025 6:22 PM EST [facility] LAB BLOOD ORDERABLES Final Resul t [facility] [address] [place] [address] [phone] * (ABNORMAL) POCT Glucose (02/01/2025 9:26 AM EST) Only the most recent of5 resultswithin the time period is included. Pathologist [facility] Glucose Blood, POC 278(A) 60 - 200 mg/dL QC Media Lot # [id number] Lot# Expiration Date [id number] Blood Capillary blood specimen / Unknown 02/01/2025 9:26 AM EST [facility] POINT OF CARE TEST ENTER/EDIT ORDERABLES Final Result * Vitamin B12/Folate, Serum Panel (01/25/2025 11:06 AM EST) [facility] Vitamin B12 400 200 - 900 pg/mL [facility] Comment:NORMAL 200-900 PG/ML INDETERMINATE 160-199 PG/ML DEFICIENT < 160 PG/ML Folate 11.1 > or = 4.0 ng/mL [facility] Comment:Reference Values:> o r = [...] ORDERABLES Final Resu lt Performing Organization Address City/[facility]/ZIP Co de Phone Number [facility] [address] [place] [phone] * TSH W/Reflex to FT4 (01/25/2025 11:06 AM EST) Pathologist [facility] TSH reflex Free T4 0.82 0.32 - 4.0 uIU/mL [facility] Blood Venous blood specimen / Unknown 01/25/2025 11:06 AM EST 01/25/2025 1:22 PM EST us Lolis Adam ANP LAB BLOOD ORDERABLES Final Resul t Performing Organization Address [facility] Co de Phone Number [facility] [address] [place] [phone] * (ABNORMAL) CBC auto differential (01/25/2025 11:06 AM EST) Pathologist [facility] White Blood Count 5.6 4.8 - 10.8 X10*3/uL [facility] Red Blood Count 5.66(H) 4.20 - 5.50 X10*6/uL [facility] Hemoglobin 13.3 12.0 - 16.0 g/dl [facility] Hematocrit 42.2 37.0 - 47.0 % [facility] Mean Corpuscular Volume 74.6(L) 80.0 - 98.0 fL [facility] Mean Corpuscular Hemoglobin 23.5(L) 27.0 - 33.0 pg [facility] Mean Corpuscular HGB Conc 31.5 31.0 - 35.0 g/dl [facility] Red Cell Distribution Width 18.6(H) 11.0 - 16.0 % [facility] Platelet Count 174 160 - 400 X10*3/uL [facility] Mean Platelet Volume 11.4 9.4 - 12.3 fL [facility] Neutrophils Percent Auto 62.3 45 - 73 % [facility] Imm Gran Pct Auto 0.4 0.0 - 0.4 % [facility] Lymphocytes Percent Auto 28.7 20 - 40 % [facility] Monocytes Percent Auto 5.3 2 - 11 % [facility] Eosinophils Percent Auto 2.1 0 - 4 % [facility] Basophils Percent Auto 1.2 0 - 2 % [facility] NRBC Pct Auto 0.0 0.0 - 0.2 /100WBC [facility] Neutrophils Absolute Auto 3.5 2.0 - 8.3 x10*3/uL [facility] Imm Gran Abs Auto 0.02 0.00 - 0.03 X10*3/uL [facility] Lymphocytes Absolute Auto 1.6 1.2 - 4.9 X10*3/uL [facility] Monocytes Absolute Auto 0.3 0.1 - 1.2 X10*3/uL [facility] Eosinophils Absolute Auto 0.1 0.0 - 0.4 X10*3/uL [facility] Basophils Absolute Auto 0.1 0.0 - 0.2 X10*3/uL [facility] NRBC Abs Auto 0.000 0.0 - 0.012 X10*3/uL [facility] Blood Venous blood specimen / Unknown 01/25/2025 11:06 AM EST 01/25/2025 1:22 PM EST us Evelia Godwin OD LAB BLOOD ORDERABLES Final Resu lt [facility] [address] [place], [place] [phone] * Methylmalonic Acid (01/25/2025 11:06 AM EST) Methylmalonic Acid 131 55 - 335 nmol/L [facility] Comment: Serum methylmalonic acid (MMA) [...] outcomes,such as neural tube defects and intrauterine growthrestriction.[facility] utilized Multi-Modal Decomposition(MMD) analysis to establish first and second trimester-specific MMA reference intervals in , as givenbelow:MMA, First trimester (<13 wks gestation): 58-167 nmol/LMMA, Second trimester (13-23 wks gestation):63-241 nmol/LThis test was developed and its analytical performancecharacteristics have been determined by [employer]. It has not been cleared or approved by theA. This assay has been validated pursuant to the CLIAregulations and is used for clinical purposes.THIS TEST WAS PERFORMED AT:[employer] [place] [address]MULOUQZGEOVANNY LOUISE MD,PHD Blood Venous blood specimen / Unknown 01/25/2025 11:06 AM EST 01/25/2025 1:22 PM EST us Evelia Godwin OD LAB BLOOD ORDERABLES Final Resu lt Performing Organization Address City/[facility]/ZIP Co de Phone Number [facility] [address] [place] [phone] * Partial Thromboplastin Time, Activated (APTT) (01/25/2025 11:06 AM EST) Partial Thromboplastin Time 28.5 26.7 - 34.1 SEC [facility] Blood Venous blood specimen / Unknown 01/25/2025 11:06 AM EST 01/25/2025 1:22 PM EST us Lolis Adam ANP LAB BLOOD ORDERABLES Final Resul t Performing Organization Address City/[facility]/ZIP Co de Phone Number [facility] [address] [place] [phone] * Prothrombin Time-INR (01/25/2025 11:06 AM EST) Prothrombin Time 12.6 11.2 - 13.5 SEC [facility] INTERNATIONAL NORM RATIO 1.0 0.9 - 1.1 [facility] Comment:INTERNATIONAL NORMAL IZED RATIO (INR) [...] 11:06 AM EST 01/25/2025 1:22 PM EST [facility] LAB BLOOD ORDERABLES Final Resul t [facility] [address] [place] [phone] * (ABNORMAL) Hemoglobin A1c (01/25/2025 11:06 AM EST) Hemoglobin A1c 13.1(H) <6.0 % [facility] Comment:Hemoglobin A1C Refer ence Range Adults: 4.8 - 6.0 % Non diabetic: < 6.0 % Goal: < 7.0 %Additional Action Suggested: > 8.0 %Note: Hemoglobin A1c results are invalid for patients with abnormal amounts of HbF. Blood transfusions may impact the HbA1c concentration in the patient sample. Estimated Average Glucose 329 mg/dL [facility] Comment:eAG = Estimated ave rage glucose which is %A1C expressed asaverage glucose, using the formula of the T2O-AmriqwsKgmrnjl Glucose study (ADAG), Diabetes Care, Vol.31,#8,Oct. 2007 01/25/2025 11:0 6 AM EST 01/25/2025 1:22 PM EST us Jyoti Al LOAD TALLIER LAB BLOOD ORDERABLES Final Resul t Performing Organization Address City/[facility]/ZIP Co de Phone Number [facility] [address] [place] [phone] * (ABNORMAL) Comprehensive metabolic panel (01/25/2025 11:06 AM EST) Sodium 136 135 - 145 mmol/L [facility] Potassium 4.1 3.3 - 5.1 mmol/L [facility] Chloride 104 96 - 108 mmol/L [facility] Carbon Dioxide 25 22 - 29 mmol/L [facility] Anion Gap 11(L) 12 - 20 [facility] Urea Nitrogen (BUN) 6(L) 9 - 16 mg/dL [facility] Creatinine, Serum 0.55 0.5 - 1.4 mg/dL [facility] Estimated Glomerular Filt Rate >60 [facility] Comment:Chronic Kidney Disea se: Estimated GFR < 60 mL/min/1.47q9Wqlsbh Kidney Disease: Estimated GFR < 15 mL/min/1.73m2 Glucose 255(H) 60 - 115 mg/dL [facility] Calcium 9.2 8.4 - 10.2 mg/dL [facility] Bilirubin, Total 0.3 0.0 - 1.0 mg/dL [facility] Aspartate Amino Transferase 17 5 - 31 U/L [facility] Alanine Aminotransferase 15 0 - 31 U/L [facility] Total Protein 7.4 6.5 - 8.0 g/dL [facility] Albumin Level 4.3 3.5 - 5.0 g/dL [facility] Alkaline Phosphatase 118(H) 39 - 117 U/L [facility] Blood Venous blood specimen / Unknown 01/25/2025 11:06 AM EST 01/25/2025 1:22 PM EST us Evelia Godwin OD LAB BLOOD ORDERABLES Final Resu lt Performing Organization Address City/[facility]/ZIP Co de Phone Number [facility] [address] [place] [phone] * (ABNORMAL) Basic Metabolic Panel (01/25/2025 11:06 AM EST) Sodium 136 135 - 145 mmol/L [facility] Potassium 4.1 3.3 - 5.1 mmol/L [facility] Chloride 104 96 - 108 mmol/L [facility] Carbon Dioxide 24 22 - 29 mmol/L [facility] Anion Gap 12 12 - 20 [facility] Urea Nitrogen (BUN) 6(L) 9 - 16 mg/dL [facility] Creatinine, Serum 0.55 0.5 - 1.4 mg/dL [facility] Estimated Glomerular Filt Rate >60 [facility] Comment:Chronic Kidney Disea se: Estimated GFR < 60 mL/min/1.92s6Hafnmc Kidney Disease: Estimated GFR < 15 mL/min/1.73m2 Glucose 254(H) 60 - 115 mg/dL [facility] Calcium 9.2 8.4 - 10.2 mg/dL [facility] 01/25/2025 11:0 6 AM EST 01/25/2025 1:22 PM EST us Jyoti Melendez LOAD TALLIER LAB BLOOD ORDERABLES Final Resul t [facility] [address] [place] [phone] * PET/CT Bone Skull Base to Mid Thigh (01/20/2025) Anatomical Region Laterality Modality Body Computed Tomogra phy us Lolis MAYERS IMG CT PROCEDURES Final Result [...] Random) 01/12/2025 3:08 PM EDT us Lolis Adam [facility] POINT OF CARE TEST ENTER/EDIT OR DERABLES Final Result * (ABNORMAL) Bacterial Vaginosis Panel (01/12/2025 2:41 PM EDT) TRICHOMONAS VAGINALIS DETECTION BY PCR NOT DETECTED Not Detect [facility] BACTERIAL VAGINOSIS DETECTION BY PCR NEGATIVE Negative [facility] Comment:The BV organism targ ets of [...] GROUP DETECTION BY PCR DETECTED(A) Not Detect [facility] Chichi glab krusei PCR NOT DETECTED Not Detect [facility] Swab Vaginal structure / Unknown 01/12/2025 2:41 PM EDT 01/12/2025 6:56 PM EDT us Lolis Adam [facility] LAB MICROBIOLOGY - GENERAL ORDER BAUTISTA Final Result [facility] [address] [place] [address] [phone] * (ABNORMAL) POCT Hgb A1c (01/12/2025 1:52 PM EDT) Hemoglobin A1C 14.8(A) 4.0 - 5.7 % QC Media Lot # [id number] Lot# Expiration Date , Blood 01/12/2025 1:52 PM EDT [facility] POINT OF CARE TEST ENTER/EDIT OR DERABLES [...] stroke. Refer for neuroimaging and neurology consult. Result [facility] Evelia Tato OD OPHTH VISUAL FIELD Final Result * [...] for visual field (VF) in 1 day Result [facility] Evelia Sotomayoryue OD OPHTH TOMOGRAPHY Edited Result - Final * CT Abdomen Pelvis w/ Contrast (12/16/2024 6:13 PM EDT) Anatomical Region Laterality Modality Body, Pelvis, Abdomen Computed T omography 12/16/2024 6:13 PM EDT Narrative 12/16/2024 6:15 PM EDT [place] [address] CT Scan Report Signed with Addenda Patient: Teena Garza MR#: [id number] : 1980 Acct:[id number] Age/Sex: 44 / F ADM Date: 12/16/24 Loc: HO.ED Attending Dr: Ordering Physician: Aaron Calderón MD Date of Service: 12/16/24 Procedure(s): CT abdomen pelvis w IV con Accession Number(s): [id number] cc: Aaron Calderón MD; LOLIS ADAM NP Report Number: [id number]: Total DLP = 0.00 mGy-cm Reason for [...] in OV> 12/16/241814 DD/ 12 TD/TT: 12/16/241812 Writer Editor: Procedure Note Donotuseinterpreter, Image - 12/16/[address] [place] [address] [address] Scan Report Signed with Addenda Patient: Teena Garza [facility]#: [id number] : 1980Acct:[id number] Age/Sex: 44 / FADM Date: 12/16/24 Loc: .ED Attending Dr: Ordering Physician: Aaron Calderón MD Date of Service: 12/16/24 Procedure(s): CT abdomen pelvis w IV con Accession Number(s): [id number] cc: Aaron Calderón MD; LOLIS ADAM NP Report Number: [id number]: Total DLP = 0.00 mGy-cm Reason for [...] in OV> 12/16/241814 DD/ 12 TD/TT: 12/16/241812 Writer Editor: [facility] External Provider IMG CT PROCEDURES Edited Result - Final * CTA Chest PE Protocal (12/16/2024 6:09 PM EDT) Anatomical Region Laterality Modality Body, Chest Computed Tomogra phy 12/16/2024 6:09 PM EDT Narrative 12/16/2024 6:11 PM EDT [place] [address] CT Scan Report Signed Patient: Teena Garza MR#: [id number] : 1980 Acct:[id number] Age/Sex: 44 / F ADM Date: 12/16/24 Loc: HO.ED Attending Dr: Ordering Physician: Aaron Calderón MD Date of Service: 12/16/24 Procedure(s): CT angio chest PE protocol Accession Number(s): [id number] cc: Aaron Calderón MD; LOLIS ADAM NP Report Number: [id number]: Total DLP = 0.00 mGy-cm Reason for [...] in OV> 12/16/241810 DD/ 08 TD/TT: 12/16/241808 Writer Editor: Procedure Note Donotuseinterpreter, Image - 12/16/[address] [place] [address] [address] Scan Report Signed Patient: Teena Garza [facility]#: [id number] : 1980Acct:[id number] Age/Sex: 44 / FADM Date: 12/16/24 Loc: .ED Attending Dr: Ordering Physician: Aaron Calderón MD Date of Service: 12/16/24 Procedure(s): CT angio chest PE protocol Accession Number(s): [id number] cc: Aaron Calderón MD; LOLIS ADAM NP Report Number: [id number]: Total DLP = 0.00 mGy-cm Reason for [...] in OV> 12/16/241810 DD/ 08 TD/TT: 12/16/241808 Writer Editor: us [facility] External Provider IMG CT PROCEDURES Final Result * US Abdomen Limited (12/16/2024 3:52 PM EDT) Anatomical Region Laterality Modality Abdomen Ultrasound 12/16/2024 3:52 PM EDT Narrative 12/16/2024 4:09 PM EDT [place] [address] Ultrasound Report Signed Patient: Teena Garza MR#: [id number] : 1980 Acct:[id number] Age/Sex: 44 / F ADM Date: 12/16/24 Loc: HO.ED Attending Dr: Ordering Physician: Aaron Calderón MD Date of Service: 12/16/24 Procedure(s): US abdomen limited Accession Number(s): [id number] cc: Aaron Calderón MD; LOLIS ADAM NP [...] 12/16/24 1606 DD/ 1552 TD/TT: 12/16/24 155 Writer Editor: Procedure Note Johnchapitoyessica, Image - 12/16/[address] [address] Ultrasound Report Signed Patient: Teena Garza MMR#: [id number] : 1980Acct:[id number] Age/Sex: 44 / FADM Date: 12/16/24 Loc: HO.ED Attending Dr: Ordering Physician: Aaron Calderón MD Date of Service: 12/16/24 Procedure(s): US abdomen limited Accession Number(s): [id number] cc: Aaron Calderón MD; LOLIS ADAM NP [...] 12/16/24 1606 DD/ 1552 TD/TT: 12/16/24 155 Writer Editor: us [facility] External Provider IMG US PROCEDURES Final Result * Hold Lavender - Possible Hematology (12/16/2024 12:13 PM EDT) Hold Lavender - Possible Hematololgy SEE NOTE [facility] Comment:Specimen will be hel d untested for 8 hours. Call Hematologyif testing is desired. 12/16/2024 12:1 3 PM EDT 12/16/2024 12:28 PM EDT us Generic External Data Provider HISTORICAL/NON OR DERABLE LABS Final Result Performing Organization Address [facility]/ZIP Co de Phone Number [facility] [address] [place] [phone] * (ABNORMAL) Lipid Panel, Standard (06/11/2024 10:40 AM EDT) Triglycerides 213(H) <150 mg/dL [facility] Comment:Desirable Triglyceri de: less than 150 mg/dLBorderline High Triglyceride 150-199 mg/dLHigh Triglyceride: 200-499 mg/dLVery High Triglyceride: greater than or equal to 5OO mg/dL Cholesterol 183 <200 mg/dL [facility] Comment:Desirable Cholestero l: less than 200 mg/dLBorderline High Cholesterol: 200-239 mg/dLHigh Cholesterol: greater than 239 mg/dL LDL Cholesterol Calculated 104(H) <100 mg/dL [facility] Comment:Desirable LDL: less than 100 mg/dLNear Optimal/Above Optimal LDL: 110- 129 mg/dLBorderline High LDL: 130-159 mg/dLHigh LDL: 160-189 mg/dLVery High LDL: greater than or equal to 190 mg/dL HDL Cholesterol 37(L) >40 mg/dL [facility] Comment:Desirable HDL: great er than 40 mg/dL Note: This HDL assay may give artificially low results in patients with liver disease. Blood Venous blood specimen / Unknown 06/11/2024 10:40 AM EDT 06/11/2024 1:11 PM EDT us Lolis Adam ANP LAB BLOOD ORDERABLES Final Resul t Performing Organization Address City/[facility]/ZIP Co de Phone Number [facility] [address] [place] [phone] * BI US Breast Limited Left (12/24/2023 1:53 PM EDT) Anatomical Region Laterality Modality Breast Left Ultrasound 12/24/2023 1:53 PM EDT Narrative 12/24/2023 3:01 PM EDT [facility] [address] [place] [address] Ultrasound Report Signed Patient: Teena Garza MR#: [id number] : 1980 Acct:[id number] Age/Sex: 43 / F ADM Date: 12/24/23 Loc: HO.MAMMO Attending Dr: Lolis Adam NP Ordering Physician: LOLIS ADAM NP Date of Service: 12/24/23 Procedure(s): US breast LT limited mamm only Accession Number(s): [id number] cc: LOLIS ADAM NP EXAMINATION: MM DIAGNOSTIC DIGITAL BREAST TOMOSYNTHESIS, BILATERAL US BREAST LIMITED, LEFT CLINICAL INFORMATION: 43-year-old female, complaining of left breast lump 9:00 axis middle depth. Due for yearly. COMPARISON: Mammography: 07/17/2021, 06/04/2021, 05/23/2021 (all from [place]). TECHNIQUE: Digital breast tomosynthesis is performed in [...] 12/24/23 1458 DD/ 1353 TD/TT: 12/24/23 1415 Writer Editor: Procedure Note Donotuseinterpreter, Image - 12/24/2023 [place] [facility] [address] [place] [address] Ultrasound Report Signed Patient: Teena Garza [facility]#: [id number] : 1980Acct:[id number] Age/Sex: 43 / FADM Date: 12/24/23 Loc: HO.MAMMO Attending Dr: Lolis Adam NP Ordering Physician: LOLIS ADAM NP Date of Service: 12/24/23 Procedure(s): US breast LT limited mamm only Accession Number(s): [id number] cc: LOLIS ADAM NP EXAMINATION: MM DIAGNOSTIC DIGITAL BREAST TOMOSYNTHESIS, BILATERAL US BREAST LIMITED, LEFT CLINICAL INFORMATION: 43-year-old female, complaining of left breast lump 9:00 axis middle depth. Due for yearly. COMPARISON: Mammography: 07/17/2021, 06/04/2021, 05/23/2021 (all from [place]). TECHNIQUE: Digital breast tomosynthesis is performed in [...] 12/24/23 1458 DD/ 1353 TD/TT: 12/24/23 1415 Writer Editor: us Lolis Adam ANP IMG US PROCEDURES Edited Result - Final * Hepatitis C Antibody with Reflex to HCV, RNA, Quantitative, Real-Time PCR (05/16/2023 10:46 AM EST) Hepatitis C Antibody Nonreactive Nonreactive [facility] Comment:Antibodies to HCV no t detected; does not exclude early acuteHCV infection. Blood Venous blood specimen / Unknown 05/16/2023 10:46 AM EST 05/16/2023 11:35 AM EST us Lolis Adam ANP LAB BLOOD ORDERABLES Final Resul t [facility] [address] [place] [phone] * HIV-1/2 Antigen and Antibodies, Fourth Generation, with Reflexes (05/16/2023 10:46 AM EST) HIV AB/AG Nonreactive Nonreactive [facility] Comment:HIV-1 p24 Ag and/or HIV-1/HIV-2 Ab not detected.A test result that is nonreactive does not exclude thepossibility of exposure to or infection with HIV-1 and/orHIV-2. Nonreactive results in this assay for individualswith prior exposure to HIV-1 and/or HIV-2 may be due toantigen and antibody levels that are below the limit ofdetection of this assay.The [employer] HIV Ag/Ab Combo assay result andsupplemental assay results should be interpreted inconjunction with the patient's clinical presentation,history and other laboratory results. If the results areinconsistent with clinical evidence, additional testing issuggested to confirm the result. Blood Venous blood specimen / Unknown 05/16/2023 10:46 AM EST 05/16/2023 11:35 AM EST Lolis Adam [facility] LAB BLOOD ORDERABLES Final Resul t [facility] [address] [place] [phone] from Last 3 Months or Most [...] neuropathy 02/08/2025 Patient has diabetic neuropathy 02/08/2025 Insurance [facility] C3 Care Teams Base Ply Hand Relationship Specialty Start Date End Date Lolis Adam ANP [address] [place] [address] PCP - General Family Medicine 11/04/20 Kolby Morin, Love [address] [place] [address] Pharmacist Internal Medicine 08/19/23
--- OUTSIDE RECORDS SUMMARY | 2025-02-08 16:11 | XMS_ITS | Encounter Summary ---
Author Organization [employer] [facility] Address [address] [facility] 7t [place] [address] Care Team Providers Care Milieu Therapist Name Role Phone Fiorella Calvo Primary Care Provider Kolby Morin PharmD Unavailable [phone] Encounter Details Date Type Department Care Team (Late st Contact Info) Description 11/05/2023 Orders Only [facility] [address] [place], [place] [phone] Fiorella Calvo ANP [address] [place] [address] Social History Tobacco Use Types Packs/Day Years [...] EST Medication Management [facility] [address] [place] [address] Rachael Lambert PharmD [address] [place] [address] 03/08/2025 2:00 PM EST Office Visit [facility] [address] [place] [address] Fiorella Calvo ANP [address] [place] [address] documented as of this encounter Goals Goal Patient Goal Type Associated Problems Recent Progress Patient-Stated? Author Quit using tobacco (cigarettes, smokeless, etc) Tobacco Use No Kolby Morin, Love documented as of this encounter Visit Diagnoses Not on filedocumented in this encounter Additional Health Concerns Assessment Noted Time PHQ-9 Depression Total Score: 20 024 9:15 AM EDT documented as of this encounter Care Teams Milieu Therapist Relationship Specialty Start Date End Date Fiorella Calvo ANP [address] [place] [address] PCP - General Family Medicine 11/04/20 Kolby Morin, KariD [address] [place] [address] Pharmacist Internal Medicine 08/19/23 documented as of this encounter
--- OUTSIDE RECORDS SUMMARY | 2025-02-08 16:11 | XMS_ITS | Encounter Summary ---
Author Organization [employer] [facility] Address [address] [place] [address] 7t [place] [address] Care Team Providers Care Bullion Weigher Name Role Phone Fiorella Calvo Primary Care Provider [phone] Kolby Morin PharmD Unavailable [phone] Reason for Visit * Reason Onset Date Comments Returning call 10/28/2023 Encounter Details Date Type Department Care Team (Late st Contact Info) Description 10/28/2023 Telephone [facility] [address] [place], [place] [phone] Fiorella Calvo ANP [address] [place] [address] Returning call Social History Tobacco Use Types [...] Miscellaneous Notes * Telephone Encounter - Roman pSencer - 10/28/2023 4:12 PM EDT Tc from pt returning call regarding message below. CHW Aparna Spencer placed outbound call to patient for follow up call on SDOH needs. No answer at this time. LVM introducing herself from [facility] CM Department. Requested call back. Please contact pt at [phone]. (Bengali Speaker) documented in this encounter Plan of Treatment Upcoming Encounters Date Type Department Care Team (Late st Contact Info) Description 02/15/2025 11:30 AM EST Medication Management [facility] [address] [place] [phone] Rachael Lambert PharmD [address] [place] [address] 03/08/2025 2:00 PM EST Office Visit [facility] [address] [place] [address] Fiorella Calvo ANP [address] [place] [address] documented as of this encounter Goals Goal Patient Goal Type Associated Problems Recent Progress Patient-Stated? Author Quit using tobacco (cigarettes, smokeless, etc) Tobacco Use No Kolby Morin PharmD documented as of this encounter Visit Diagnoses Not on filedocumented in this encounter Additional Health Concerns Assessment Noted Time PHQ-9 Depression Total Score: 20 024 9:15 AM EDT documented as of this encounter Care Teams Bullion Weigher Relationship Specialty Start Date End Date Fiorella Calvo ANP [address] [place] [address] PCP - General Family Medicine 11/04/20 Kolby Morin PharmD [address] [place] [address] Pharmacist Internal Medicine 08/19/23 documented as of this encounter
--- OUTSIDE RECORDS SUMMARY | 2025-02-08 16:11 | XMS_ITS | Encounter Summary ---
Author Organization [employer] Address [address] [facility] 7 [place] [address] Care Team Providers Care Lead Refiner Name Role Phone Fiorella Calvo Primary Care Provider [phone] Kolby Morin PharmD Unavailable [phone] Reason for Visit * Reason Onset Date Comments PT1 06/30/2024 Encounter Details Date Type Department Care Team (Late st Contact Info) Description 06/30/2024 Telephone [facility] 230 [place], [place] [phone] Fiorella Calvo ANP [address] [place], [place] [phone] PT1 Social History Tobacco Use Types Packs/Day [...] Y/N: Yes Provider name or facility name: [facility] - [address] [place] [address] Escort needed: Y/N: No Do you have a wheelchair: Y/N: No If yes- Manual or electric: N/A Visits: (2x monthly) documented in this encounter Plan of Treatment Upcoming Encounters Date Type Department Care Team ([facility] Contact Info) Description 02/15/2025 11:30 AM EST Medication Management [facility] [address] [place] [address] Rachael Lambert, PharmD [address] [place] [address] 03/08/2025 2:00 PM EST Office Visit [facility] [address] [place] [address] Fiorella Calvo ANP [address] [place] [address] documented as of this encounter Goals Goal Patient Goal Type Associated Problems Recent Progress Patient-Stated? Author Quit using tobacco (cigarettes, smokeless, etc) Tobacco Use No Kolby Morin, KariD documented as of this encounter Visit Diagnoses Not on filedocumented in this encounter Additional Health Concerns Assessment Noted Time PHQ-9 Depression Total Score: 26 025 11:43 AM EST documented as of this encounter Care Teams Lead Refiner Relationship Specialty Start Date End Date Fiorella Calvo ANP [address] [place] [address] PCP - General Family Medicine 11/04/20 Kolby Morin, PharmD [address] [place] [address] Pharmacist Internal Medicine 08/19/23 documented as of this encounter
--- OUTSIDE RECORDS SUMMARY | 2025-02-08 16:11 | XMS_ITS | Encounter Summary ---
Author Organization [employer] Address [address] [facility] 7t [place] [address] Care Team Providers Care Instrumentation Supervisor Name Role Phone Fiorella Calvo Primary Care Provider [phone] Kolby Morin PharmD Unavailable [phone] Reason for Visit * Reason Comments Med Refill Encounter Details Date Type Department Care Team (Late st Contact Info) Description 02/08/2025 Refill [facility] 230 [place], [place] [phone] Fiorella Calvo ANP [address] [place] [address] Chronic pain of left knee; Osteoarthritis of [...] Description 02/15/2025 11:30 AM EST Medication Management [facility] [address] [place] [phone] Rachael Lambert, KariD [address] [place] [address] 03/08/2025 2:00 PM EST Office Visit [facility] [address] [place] [address] Fiorella Calvo, RIANA [address] [place] [address] documented as of this encounter Goals Goal [...] Patient has chronic kidney disease No Vikki Hillaird RN Patient has chronic kidney disease Care [...] Care Plan Weekly blood pressure task No Lorna Ragsdale, WOOD CHOPPER Weekly blood pressure task Care Plan Weekly blood pressure task No Adilia Ragsdaleupe, WOOD CHOPPER Weekly blood pressure task Care Plan Weekly blood pressure task No Adilia Ragsdaleupe, WOOD CHOPPER Patient has chronic kidney disease Care Plan Patient has chronic kidney disease No Adilia Ragsdaleupe, WOOD CHOPPER Patient has chronic kidney disease Care Plan Patient has chronic kidney disease No Okclementineo Lorna, WOOD CHOPPER Patient has chronic kidney disease Care Plan Patient has chronic kidney disease No Okclementineo Lorna, WOOD CHOPPER Patient has diabetic neuropathy Care Plan Patient has diabetic neuropathy No Okclementineo Lorna, WOOD CHOPPER Patient has diabetic neuropathy Care Plan Patient has diabetic neuropathy No Okclementineo Lorna, WOOD CHOPPER Patient has diabetic neuropathy Care Plan Patient has diabetic neuropathy No Okclementineo Lorna, WOOD CHOPPER Weekly blood pressure task Care Plan Weekly [...] Weekly blood pressure task No Pacheco, Yoselin, INFLATABLE BUILDINGS LAMINATOR Weekly blood pressure task Care Plan Weekly blood pressure task No Pacheco, Yoselin, INFLATABLE BUILDINGS LAMINATOR Weekly blood pressure task Care Plan Weekly blood pressure task No Pacheco, Yoselin, INFLATABLE BUILDINGS LAMINATOR Patient has chronic kidney disease Care Plan Patient has chronic kidney disease No Pacheco, Yoselin, INFLATABLE BUILDINGS LAMINATOR Patient has chronic kidney disease Care Plan Patient has chronic kidney disease No Pacheco, Yoselin, INFLATABLE BUILDINGS LAMINATOR Patient has chronic kidney disease Care Plan Patient has chronic kidney disease No Pacheco, Yoselin, INFLATABLE BUILDINGS LAMINATOR Patient has diabetic neuropathy Care Plan Patient has diabetic neuropathy No Pacheco, Yoselin, INFLATABLE BUILDINGS LAMINATOR Patient has diabetic neuropathy Care Plan Patient has diabetic neuropathy No Pacheco, Yoselin, INFLATABLE BUILDINGS LAMINATOR Patient has diabetic neuropathy Care Plan Patient has diabetic neuropathy No Pacheco, Yoselin, INFLATABLE BUILDINGS LAMINATOR Weekly blood pressure task Care Plan Weekly [...] Weekly blood pressure task No Pacheco, Yoselin, INFLATABLE BUILDINGS LAMINATOR Weekly blood pressure task Care Plan Weekly blood pressure task No PachecoMarkga, INFLATABLE BUILDINGS LAMINATOR Weekly blood pressure task Care Plan Weekly blood pressure task No PachecoMarkga, INFLATABLE BUILDINGS LAMINATOR Patient has chronic kidney disease Care Plan Patient has chronic kidney disease No Pacheco, Yoselin, INFLATABLE BUILDINGS LAMINATOR Patient has chronic kidney disease Care Plan Patient has chronic kidney disease No Pacheco, Yoselin, INFLATABLE BUILDINGS LAMINATOR Patient has chronic kidney disease Care Plan Patient has chronic kidney disease No PachecoMarkga, INFLATABLE BUILDINGS LAMINATOR Patient has diabetic neuropathy Care Plan Patient has diabetic neuropathy No Pacheco, Yoselin, INFLATABLE BUILDINGS LAMINATOR Patient has diabetic neuropathy Care Plan Patient has diabetic neuropathy No Pacheco, Yoselin, INFLATABLE BUILDINGS LAMINATOR Patient has diabetic neuropathy Care Plan Patient has diabetic neuropathy No PachecoMarkga, INFLATABLE BUILDINGS LAMINATOR Weekly blood pressure task Care Plan Weekly blood pressure task No Coni Melton Weekly blood pressure task Care Plan Weekly blood pressure task No Coni Melton Weekly blood pressure task Care Plan Weekly blood pressure task No Coni Melton Patient has chronic kidney disease Care Plan Patient has chronic kidney disease No Coni Melton Patient has chronic kidney disease Care Plan Patient has chronic kidney disease No Coni Melton Patient has chronic kidney disease Care Plan Patient has chronic kidney disease No Coni Melton Patient has diabetic neuropathy [...] documented as of this encounter Care Teams Instrumentation Supervisor Relationship Specialty Start Date End Date Fiorella Calvo ANP [address] [place] [address] PCP - General Family Medicine 11/04/20 Kolby Morin, Love [address] [place] [address] Pharmacist Internal Medicine 08/19/23 documented as of this encounter
--- OUTSIDE RECORDS SUMMARY | 2025-02-08 16:12 | XMS_ITS | Encounter Summary ---
Author Organization [employer] Address [address] [facility] 7t [place] [address] Care Team Providers Care Director Trade Name Role Phone Fiorella Calvo Primary Care Provider [phone] Kolby Morin PharmD Unavailable [phone] Reason for Visit * Reason Onset Date Comments Med Refill 01/25/2025 Encounter Details Date Type Department Care Team (Late st Contact Info) Description 01/25/2025 Telephone [facility] 230 [place], [place] [phone] Fiorella Calvo ANP 230 [place], [place] [phone] Med Refill Social History Tobacco Use Types [...] EST Call received from Camila at [facility] stating courtesy call to report borderline T- Spot. documented in this encounter Plan of Treatment Upcoming Encounters Date Type Department Care Team (Late st Contact Info) Description 02/15/2025 11:30 AM EST Medication Management [facility] [address] [place] [address] Rachael Lambert, PharmD 230 [place] [address] 03/08/2025 2:00 PM EST Office Visit [facility] [address] [place] [address] [phone] Fiorella Calvo, ANP [address] [place], [place] [phone] documented as of this encounter Goals Goal [...] as of this encounter Care Teams Director Trade Relationship Specialty Start Date End Date Fiorella Calvo ANP [address] [place] [address] PCP - General Family Medicine 11/04/20 Kolby Morin, PharmD 230 [place] [address] Pharmacist Internal Medicine 08/19/23 documented as of this encounter
--- OUTSIDE RECORDS SUMMARY | 2025-02-08 16:12 | XMS_ITS | Encounter Summary ---
Author Organization [employer] Address [address] [facility] 7t [place] [address] Care Team Providers Care Disability Case Manager Name Role Phone Fiorella Calvo Primary Care Provider [phone] Kolby Morin PharmD Unavailable [phone] Reason for Visit * Reason Onset Date Comments Med Refill 03/22/2024 Encounter Details Date Type Department Care Team (Late st Contact Info) Description 03/22/2024 Refill [facility] 230 [place], [place] [phone] Fiorella Calvo ANP [address] [place] [address] Type 2 diabetes mellitus with hyperlipidemia ([facility]/HCC) ([facility]) Social History Tobacco Use Types [...] Description 02/15/2025 11:30 AM EST Medication Management [facility] [address] [place] [address] Rachael Lambert PharmD [address] [place] [address] 03/08/2025 2:00 PM EST Office Visit [facility] [address] [place] [address] Fiorella Calvo, ANP [address] [place] [address] documented as of this encounter Goals Goal [...] documented as of this encounter Care Teams Disability Case Manager Relationship Specialty Start Date End Date Fiorella Calvo ANP [address] [place] [address] PCP - General Family Medicine 11/04/20 Kolby Morin PharmD [address] [place] [address] Pharmacist Internal Medicine 08/19/23 documented as of this encounter
--- OUTSIDE RECORDS SUMMARY | 2025-02-08 16:12 | XMS_ITS | Encounter Summary ---
Author Organization [employer] Address [address] [facility] 7 [place] [address] Care Team Providers Care Bookstore Clerk Name Role Phone Fiorella Calvo Primary Care Provider [phone] Kolby Morin PharmD Unavailable [phone] Reason for Visit * Reason Onset Date Comments Med Refill 04/08/2024 Encounter Details Date Type Department Care Team (Late st Contact Info) Description 04/08/2024 Refill [facility] 230 [place], [place] [phone] Fiorella Calvo ANP [address] [place] [address] Type 2 diabetes mellitus with hyperlipidemia (CMS/HCC) ([facility]/HCC); Diabetic polyneuropathy associated with type [...] Description 02/15/2025 11:30 AM EST Medication Management [facility] [address] [place] [address] Rachael Lambert PharmD [address] [place] [address] 03/08/2025 2:00 PM EST Office Visit [facility] [address] [place] [address] Fiorella Calvo ANP [address] [place] [address] documented as of this encounter Goals Goal [...] documented as of this encounter Care Teams Bookstore Clerk Relationship Specialty Start Date End Date Fiorella Calvo ANP [address] [place] [address] PCP - General Family Medicine 11/04/20 Kolby Morin PharmD [address] [place] [address] Pharmacist Internal Medicine 08/19/23 documented as of this encounter
--- OUTSIDE RECORDS SUMMARY | 2025-02-08 16:12 | XMS_ITS | Encounter Summary ---
Author Organization [employer] Address [address] [facility] 7t [place] [address] Care Team Providers Care Engine Room Helper Name Role Phone Fiorella Calvo Primary Care Provider [phone] Kolby Morin PharmD Unavailable [phone] Reason for Visit * Reason Onset Date Comments Call Back Request 04/16/2024 Encounter Details Date Type Department Care Team ([facility] st Contact Info) Description 04/16/2024 Telephone [facility] 230 [place], [place] [phone] Fiorella Calvo ANP 230 [place], [place] [phone] Call Back Request Social History Tobacco Use [...] the past 12 months, has t he Voc[employer], gas, oil or water company threatened to [...] from pt returning call Please contact at [phone] documented in this encounter Plan of Treatment Upcoming Encounters Date Type Department Care Team (Late st Contact Info) Description 02/15/2025 11:30 AM EST Medication Management [facility] [address] [place] [phone] Rachael Lambert PharmD [address] [place] [address] 03/08/2025 2:00 PM EST Office Visit [facility] [address] [place] [phone] Fiorella Calvo ANP [address] [place] [address] documented as of this encounter Goals Goal Patient Goal Type Associated Problems Recent Progress Patient-Stated? Author Quit using tobacco (cigarettes, smokeless, etc) Tobacco Use No Kolby Morin PharmD documented as of this encounter Visit Diagnoses Not on filedocumented in this encounter Additional Health Concerns Assessment Noted Time PHQ-9 Depression Total Score: 20 024 9:15 AM EDT documented as of this encounter Care Teams Engine Room Helper Relationship Specialty Start Date End Date Fiorella Calvo ANP [address] [place] [address] PCP - General Family Medicine 11/04/20 Kolby Morin PharmD [address] [place] [address] Pharmacist Internal Medicine 08/19/23 documented as of this encounter
--- OUTSIDE RECORDS SUMMARY | 2025-02-08 16:12 | XMS_ITS | Encounter Summary ---
Author Organization [facility] [facility] Address [address] [place] [address] 7 [place] [address] Care Team Providers Care Sack Lifter Name Role Phone Fiorella Calvo Primary Care Provider [phone] Kolby Morin PharmD Unavailable [phone] Reason for Visit * Reason Comments Med Refill Encounter Details Date Type Department Care Team (Late st Contact Info) Description 07/17/2023 Refill [facility] [address] [place] [address] Fiorella Calvo ANP [address] [place] [address] Type 2 diabetes mellitus with hyperlipidemia ([facility]) ([facility]) Social History Tobacco Use Types Packs/Day Years [...] Description 02/15/2025 11:30 AM EST Medication Management [facility] [address] [place] [address] Rachael Lambert PharmD [address] [place] [address] 03/08/2025 2:00 PM EST Office Visit [facility] [address] [place] [address] Fiorella Calvo ANP [address] [place] [address] documented as of this encounter Visit Diagnoses Diagnosis Type 2 diabetes mellitus with hyperlipidemia (HCC) documented in this encounter Care Teams Sack Lifter Relationship Specialty Start Date End Date Fiorella Calvo ANP [address] [place] [phone] PCP - General Family Medicine 11/04/20 Kolby Morin, KariD [address] [place] [phone] Pharmacist Internal Medicine 08/19/23 documented as of this encounter
--- OUTSIDE RECORDS SUMMARY | 2025-02-08 16:12 | XMS_ITS | Encounter Summary ---
Author Organization [employer] Address 75 [facility] 7 [place] [address] Care Team Providers Care Elevator Dispatcher Name Role Phone Fiorella Calvo Primary Care Provider [phone] Kolby Morin PharmD Unavailable [phone] Reason for Visit * Reason Onset Date Comments PT1 04/23/2024 Encounter Details Date Type Department Care Team (Late st Contact Info) Description 04/23/[address] [facility] [address] [place], [place] [phone] Fiorella Calvo ANP [address] [place], [place] [phone] PT1 Social History Tobacco Use Types Packs/Day [...] Y/N: Yes Provider name or facility name: [address] [place] [phone] Escort needed: Y/N: No Do you have a wheelchair: Y/N: No If yes- Manual or electric: N/A Visits: (2x monthly) documented in this encounter Plan of Treatment Upcoming Encounters Date Type Department Care Team (Late st Contact Info) Description 02/15/2025 11:30 AM EST Medication Management [facility] [address] [place] [address] Rachael Lambert, PharmD [address] [place] [address] 03/08/2025 2:00 PM EST Office [address] [facility] [address] [place] [address] Fiorella Calvo ANP [address] [place] [address] documented as of this encounter Goals Goal Patient Goal Type Associated Problems Recent Progress Patient-Stated? Author Quit using tobacco (cigarettes, smokeless, etc) Tobacco Use No Kolby Morin, KariD documented as of this encounter Visit Diagnoses Not on filedocumented in this encounter Additional Health Concerns Assessment Noted Time PHQ-9 Depression Total Score: 26 025 11:43 AM EST documented as of this encounter Care Teams Elevator Dispatcher Relationship Specialty Start Date End Date Fiorella Calvo ANP [address] [place] [address] PCP - General Family Medicine 11/04/20 Kolby Morin, PharmD [address] [place] [address] Pharmacist Internal Medicine 08/19/23 documented as of this encounter
--- OUTSIDE RECORDS SUMMARY | 2025-02-08 16:12 | XMS_ITS | Encounter Summary ---
Author Organization [employer] Address 75 [facility] 7 [place] [address] Care Team Providers Care Watch Hairspring Assembler Name Role Phone Fiorella Calvo Primary Care Provider [phone] Kolby Morin PharmD Unavailable [phone] Reason for Visit * Reason Comments Med Refill Encounter Details Date Type Department Care Team ([facility] st Contact Info) Description 03/27/2024 Refill [facility] 230 [place], [place] [phone] Fiorella Calvo ANP 230 [place] [address] Type 2 diabetes mellitus with hyperlipidemia (CMS/HCC) ([facility]/HCC); Diabetic polyneuropathy associated with type 2 diabetes mellitus ([facility]/HCC) Social History Tobacco Use Types Packs/Day [...] Description 02/15/2025 11:30 AM EST Medication Management [facility] [address] [place] [phone] Rachael Lambert PharmD [address] [place] [address] 03/08/2025 2:00 PM EST Office Visit [facility] [address] [place] [phone] Fiorella Calvo ANP [address] [place] [address] documented as of this encounter Goals Goal [...] documented as of this encounter Care Teams Watch Hairspring Assembler Relationship Specialty Start Date End Date Fiorella Calvo ANP 230 [place] [address] PCP - General Family Medicine 11/04/20 Kolby Morin, Love 230 [place] [address] Pharmacist Internal Medicine 08/19/23 documented as of this encounter
--- OUTSIDE RECORDS SUMMARY | 2025-02-08 16:12 | XMS_ITS | Encounter Summary ---
Author Organization [facility] Address 75 [facility] 7t [place] [address] Care Team Providers Care Network Programmer Name Role Phone Fiorella Calvo Primary Care Provider [phone] Kolby Morin PharmD Unavailable [phone] Reason for Visit * Reason Onset Date Comments Med Refill 04/16/2024 Encounter Details Date Type Department Care Team (Late st Contact Info) Description 04/16/2024 Refill [facility] 230 [place], [place] [phone] Fiorella Calvo ANP 230 [place] [address] Type 2 diabetes mellitus with hyperlipidemia (CMS/HCC) ([facility]) (Primary Dx) Social History Tobacco Use Types [...] Description 02/15/2025 11:30 AM EST Medication Management [facility] [address] [place] [address] Rachael Lambert, KariD 230 [place] [address] 03/08/2025 2:00 PM EST Office Visit [facility] [address] [place] [address] Fiorella Calvo ANP [address] [place] [address] documented as of this encounter Goals Goal [...] documented as of this encounter Care Teams Network Programmer Relationship Specialty Start Date End Date Fiorella Calvo ANP [address] [place] [address] PCP - General Family Medicine 11/04/20 Kolby Morin, KariD [address] [place] [address] Pharmacist Internal Medicine 08/19/23 documented as of this encounter
--- OUTSIDE RECORDS SUMMARY | 2025-02-08 16:12 | XMS_ITS | Encounter Summary ---
Author Organization [employer] Address 75 [facility] 7t [place] [address] Care Team Providers Care Pattern Puncher Name Role Phone Fiorella Calvo Primary Care Provider [phone] Kolby Morin PharmD Unavailable [phone] Reason for Visit * Reason Onset Date Comments Call Back Request 02/08/2025 Encounter Details Date Type Department Care Team ([facility] st Contact Info) Description 02/08/2025 Telephone [facility] 230 [place], [place] [phone] Fiorella Calvo ANP [address] [place], [place] [phone] Call Back Request Social History Tobacco Use [...] encounter Miscellaneous Notes * Telephone Encounter - Som Sims - 02/08/2025 2:49 PM EST Tc from pt requesting a call back regarding Tramadol , pt states she only received 8 tablets of themedication Contact pt at [phone] (macedonian) * Telephone Encounter - Coni Melton - 02/08/2025 11:24 AM EST TC from pt requesting a call back in regards of quantity on medication Tramadol. PCP Dr. Calvo documented in this encounter Plan of Treatment Upcoming Encounters Date Type Department Care Team ([facility] st Contact Info) Description 02/15/2025 11:30 AM EST Medication Management [facility] [address] [place] [address] [phone] Rachael Lambert, PharmD [address] [place] [address] 03/08/2025 2:00 PM EST Office Visit [facility] 230 [place] [address] Fiorella Calvo ANP [address] [place], [place] [phone] documented as of this encounter Goals Goal [...] manage their type 2 diabetes No Kristen Sdidiqui RN Patient has diabetic neuropathy Care Plan [...] Weekly blood pressure task No Adilia Ragsdaleupe, EXTRUSION DIE CORRECTOR Weekly blood pressure task Care Plan Weekly blood pressure task No Melyssa Lorna, EXTRUSION DIE CORRECTOR Weekly blood pressure task Care Plan Weekly blood pressure task No Adilia Ragsdaleupe, EXTRUSION DIE CORRECTOR Patient has chronic kidney disease Care Plan Patient has chronic kidney disease No Okhipo, Lorna, EXTRUSION DIE CORRECTOR Patient has chronic kidney disease Care Plan Patient has chronic kidney disease No Okhipo, Lorna, EXTRUSION DIE CORRECTOR Patient has chronic kidney disease Care Plan Patient has chronic kidney disease No Okhipo, Lorna, EXTRUSION DIE CORRECTOR Patient has diabetic neuropathy Care Plan Patient has diabetic neuropathy No Okhipo, Lorna, EXTRUSION DIE CORRECTOR Patient has diabetic neuropathy Care Plan Patient has diabetic neuropathy No Okhipo, Lorna, EXTRUSION DIE CORRECTOR Patient has diabetic neuropathy Care Plan Patient has diabetic neuropathy No Okhipo, Lorna, EXTRUSION DIE CORRECTOR Weekly blood pressure task Care Plan Weekly [...] Care Plan Patient has diabetic neuropathy No BraxtonAmelie lyncha Weekly blood pressure task Care Plan Weekly [...] Plan Weekly blood pressure task No Yoselin aPcheco, KARDEX CLERK Weekly blood pressure task Care Plan Weekly blood pressure task No Yoselin Pacheco KARDEX CLERK Weekly blood pressure task Care Plan Weekly blood pressure task No Yoselin Pacheco, KARDEX CLERK Patient has chronic kidney disease Care Plan Patient has chronic kidney disease No PachecoMarkga, KARDEX CLERK Patient has chronic kidney disease Care Plan Patient has chronic kidney disease No PachecoMarkga, KARDEX CLERK Patient has chronic kidney disease Care Plan Patient has chronic kidney disease No PachecoMarkga, KARDEX CLERK Patient has diabetic neuropathy Care Plan Patient has diabetic neuropathy No PachecoMarkga, KARDEX CLERK Patient has diabetic neuropathy Care Plan Patient has diabetic neuropathy No PachecoMarkga, KARDEX CLERK Patient has diabetic neuropathy Care Plan Patient has diabetic neuropathy No Yoselin Pacheco, KARDEX CLERK Weekly blood pressure task Care Plan Weekly [...] Weekly blood pressure task No Pacheco, Yoselin, KARDEX CLERK Weekly blood pressure task Care Plan Weekly blood pressure task No Pacheco, Yoselin, KARDEX CLERK Weekly blood pressure task Care Plan Weekly blood pressure task No Pacheco, Yoselin, KARDEX CLERK Patient has chronic kidney disease Care Plan Patient has chronic kidney disease No Pacheco, Yoselin, KARDEX CLERK Patient has chronic kidney disease Care Plan Patient has chronic kidney disease No Pacheco, Yoselin, KARDEX CLERK Patient has chronic kidney disease Care Plan Patient has chronic kidney disease No Pacheco, Yoselin, KARDEX CLERK Patient has diabetic neuropathy Care Plan Patient has diabetic neuropathy No Pacheco, Yoselin, KARDEX CLERK Patient has diabetic neuropathy Care Plan Patient has diabetic neuropathy No Pacheco, Yoselin, KARDEX CLERK Patient has diabetic neuropathy Care Plan Patient has diabetic neuropathy No Pacheco, Yoselin, KARDEX CLERK Weekly blood pressure task Care Plan Weekly [...] Care Plan Patient has chronic kidney disease Andria Hancock RN Patient has chronic kidney disease Care Plan Patient has chronic kidney disease Andria Hancock RN Patient has chronic kidney disease Care Plan Patient has chronic kidney disease Andria Hancock RN Patient has diabetic neuropathy Care Plan Patient has diabetic neuropathy Andria Hancock RN Patient has diabetic neuropathy Care Plan Patient has diabetic neuropathy Andria Hancock RN Patient has diabetic neuropathy Care Plan [...] documented as of this encounter Care Teams Pattern Puncher Relationship Specialty Start Date End Date Fiorella Calvo ANP [address] [place] [address] PCP - General Family Medicine 11/04/20 Kolby Morin PharmD [address] [place] [address] Pharmacist Internal Medicine 08/19/23 documented as of this encounter
--- OUTSIDE RECORDS SUMMARY | 2025-02-08 16:12 | XMS_ITS | Encounter Summary ---
Author Organization [employer] Address 75 [facility] 7t [place] [address] Care Team Providers Care Rf Test Technician Name Role Phone Lolis Adam Primary Care Provider [phone] Kolby Morin PharmD Unavailable [phone] Encounter Details Date Type Department Care Team (Late st Contact Info) Description 02/08/2025 Orders Only [facility] External Provider, [facility] Social History Tobacco Use Types Packs/Day Years [...] Description 02/15/2025 11:30 AM EST Medication Management [address] [address] Rachael Lambert, PharmD [address] [place] [address] 03/08/2025 2:00 PM EST Office Visit [facility] [address] [place] [address] Lolis Adam, ANP [address] [place] [address] documented as of this encounter Goals Goal [...] Weekly blood pressure task No Okclementineo, Lorna, ROAD CLEANER Weekly blood pressure task Care Plan Weekly blood pressure task No Okclementineo Lorna, ROAD CLEANER Weekly blood pressure task Care Plan Weekly blood pressure task No Okhipo, Lorna, ROAD CLEANER Patient has chronic kidney disease Care Plan Patient has chronic kidney disease No Okhipo, Lorna, ROAD CLEANER Patient has chronic kidney disease Care Plan Patient has chronic kidney disease No Okhipo, Lrona, ROAD CLEANER Patient has chronic kidney disease Care Plan Patient has chronic kidney disease No Okhipo, Lorna, ROAD CLEANER Patient has diabetic neuropathy Care Plan Patient has diabetic neuropathy No Okhipo, Lorna, ROAD CLEANER Patient has diabetic neuropathy Care Plan Patient has diabetic neuropathy No Okhipo, Lorna, ROAD CLEANER Patient has diabetic neuropathy Care Plan Patient has diabetic neuropathy No Okhipo, Lorna, ROAD CLEANER Weekly blood pressure task Care Plan Weekly [...] Weekly blood pressure task No Pacheco, Yoselin, QUALITY ASSURANCE SUPERVISOR CHASSIS Weekly blood pressure task Care Plan Weekly blood pressure task No Pacheco, Yoselin, QUALITY ASSURANCE SUPERVISOR CHASSIS Weekly blood pressure task Care Plan Weekly blood pressure task No Pacheco, Yoselin, QUALITY ASSURANCE SUPERVISOR CHASSIS Patient has chronic kidney disease Care Plan Patient has chronic kidney disease No Pacheco, Yoselin, QUALITY ASSURANCE SUPERVISOR CHASSIS Patient has chronic kidney disease Care Plan Patient has chronic kidney disease No Pacheco, Yoselin, QUALITY ASSURANCE SUPERVISOR CHASSIS Patient has chronic kidney disease Care Plan Patient has chronic kidney disease No Pacheco, Yoselin, QUALITY ASSURANCE SUPERVISOR CHASSIS Patient has diabetic neuropathy Care Plan Patient has diabetic neuropathy No Pacheco, Yoselin, QUALITY ASSURANCE SUPERVISOR CHASSIS Patient has diabetic neuropathy Care Plan Patient has diabetic neuropathy No Pacheco, Yoselin, QUALITY ASSURANCE SUPERVISOR CHASSIS Patient has diabetic neuropathy Care Plan Patient has diabetic neuropathy No Pacheco, Yoselin, QUALITY ASSURANCE SUPERVISOR CHASSIS Weekly blood pressure task Care Plan Weekly [...] Plan Patient has diabetic neuropathy No Lolis dAam ANP Patient has diabetic neuropathy Care Plan [...] Weekly blood pressure task No Yoselin Pacheco QUALITY ASSURANCE SUPERVISOR CHASSIS Weekly blood pressure task Care Plan Weekly blood pressure task No Yoselin Pacheco, QUALITY ASSURANCE SUPERVISOR CHASSIS Weekly blood pressure task Care Plan Weekly blood pressure task No Yoselin Pacheco, QUALITY ASSURANCE SUPERVISOR CHASSIS Patient has chronic kidney disease Care Plan Patient has chronic kidney disease No Yoselin Pacheco, QUALITY ASSURANCE SUPERVISOR CHASSIS Patient has chronic kidney disease Care Plan Patient has chronic kidney disease No Pacheco, Yoselin, QUALITY ASSURANCE SUPERVISOR CHASSIS Patient has chronic kidney disease Care Plan Patient has chronic kidney disease No Pacheco, Yoselin, QUALITY ASSURANCE SUPERVISOR CHASSIS Patient has diabetic neuropathy Care Plan Patient has diabetic neuropathy No PachecoMarkga, QUALITY ASSURANCE SUPERVISOR CHASSIS Patient has diabetic neuropathy Care Plan Patient has diabetic neuropathy No Pacheco, Yoselin, QUALITY ASSURANCE SUPERVISOR CHASSIS Patient has diabetic neuropathy Care Plan Patient has diabetic neuropathy No Pacheco, Yoselin, QUALITY ASSURANCE SUPERVISOR CHASSIS Weekly blood pressure task Care Plan Weekly blood pressure task No Coni Melton Weekly blood pressure task Care Plan Weekly blood pressure task No Coni Melton Weekly blood pressure task Care Plan Weekly blood pressure task No Geronimo Coni Patient has chronic kidney [...] Barrios RN documented as of this encounter Procedures Procedure Name Priority Date/Time Associated Diagnosis Comments XR CHEST 2 VIEWS Routine 02/08/2025 12:4 6 PM EST documented in this encounter Results * XR Chest 2 Views (02/08/2025 12:46 PM EST) Anatomical Region Laterality Modality Chest Radiographic Heather ging 02/08/2025 12:4 6 PM EST Narrative 02/08/2025 1:02 PM EST [address] [place] [address] [address] XRay Report Signed Patient: Teena Garza MR#: [id number] : 1980 Acct:[id number] Age/Sex: 44 / F ADM Date: 02/08/25 Loc: [facility] Attending Dr: Araseli Shoemaker WIRELESS SALES CONSULTANT Ordering Physician: Araseli Shoemaker NP Date of Service: 02/08/25 Procedure(s): XR chest 2V Accession Number(s): [id number] cc: LOLIS ADAM WIRELESS SALES CONSULTANT; Araseli Shoemaker NP Reason for Exam: R05.9 [...] Osbaldo Mcmahan MD 02/08/2025 01:00 PM EST Dictated By: Osbaldo Mcmahan MD Signed By: <Electronically signed by Osbaldo Mcmahan MD in OV> 02/08/25 1300 DD/ 1246 TD/TT: 02/08/25 1249 Finance Specialist: Procedure Note Donotuseinterpreter, Image - 02/08/[address] [address] XRay Report Signed Patient: Teena Garza MMR#: [id number] : 1980Acct:[id number] Age/Sex: 44 / FADM Date: 02/08/25 Loc: [facility] Attending Dr: Araseli Shoemaker WIRELESS SALES CONSULTANT Ordering Physician: Araseli Shoemaker NP Date of Service: 02/08/25 Procedure(s): XR chest 2V Accession Number(s): [id number] cc: LOLIS ADAM WIRELESS SALES CONSULTANT; Araseli Shoemaker NP Reason for Exam: R05.9 [...] Osbaldo Mcmahan MD 02/08/2025 01:00 PM EST Dictated By: Osbaldo Mcmahan MD Signed By: <Electronically signed by Osbaldo Mcmahan MD in OV> 02/08/25 1300 DD/ 1246 TD/TT: 02/08/25 1249 Finance Specialist: [facility] External Provider IMG XR PROCEDURES Final Result documented in this encounter Visit Diagnoses Not [...] documented as of this encounter Care Teams Rf Test Technician Relationship Specialty Start Date End Date Lolis Adam ANP [address] [place] [address] PCP - General Family Medicine 11/04/20 Kolby Morin, PharmD [address] [place] [address] Pharmacist Internal Medicine 08/19/23 documented as of this encounter
--- OUTSIDE RECORDS SUMMARY | 2025-02-08 16:12 | XMS_ITS | Encounter Summary ---
Author Organization [employer] Address 75 [facility] 7t [place] [address] Care Team Providers Care Toll Transmission Worker Name Role Phone Fiorella Calvo Primary Care Provider [phone] Kolby Morin PharmD Unavailable [phone] Encounter Details Date Type Department Care Team ([facility] st Contact Info) Description 02/05/2025 Orders Only [facility] MED[facility]INE 230 [place], [place] [phone] Fiorella Calvo ANP 230 [place] [address] Complex tear of meniscus of left knee as current injury, unspecified meniscus, subsequent encounter (Primary Dx); Encounter for long-term opiate analgesic use Social History Tobacco Use Types Packs/Day Years [...] 11:30 AM EST Medication Management [facility] MED[facility]INE [address] [place] [address] Rachael Lambert, KariD [address] [place] [address] 03/08/2025 2:00 PM EST Office Visit [facility]INE [address] [place] [address] Fiorella Calvo, RIANA [address] [place] [address] documented as of this encounter Goals Goal [...] manage their type 2 diabetes No Kristen iSddiqui RN Patient has diabetic neuropathy Care Plan [...] Weekly blood pressure task No Mitcho Lorna, CANDLEMAKING LABORER Weekly blood pressure task Care Plan Weekly blood pressure task No Okclementineo Lorna, CANDLEMAKING LABORER Weekly blood pressure task Care Plan Weekly blood pressure task No Okclementineo Lorna, CANDLEMAKING LABORER Patient has chronic kidney disease Care Plan Patient has chronic kidney disease No Okclementineo Lorna, CANDLEMAKING LABORER Patient has chronic kidney disease Care Plan Patient has chronic kidney disease No Okhipo, Lorna, CANDLEMAKING LABORER Patient has chronic kidney disease Care Plan Patient has chronic kidney disease No Okhipo, Lorna, CANDLEMAKING LABORER Patient has diabetic neuropathy Care Plan Patient has diabetic neuropathy No Okhipo, Lorna, CANDLEMAKING LABORER Patient has diabetic neuropathy Care Plan Patient has diabetic neuropathy No Okhipo, Lorna, CANDLEMAKING LABORER Patient has diabetic neuropathy Care Plan Patient has diabetic neuropathy No Okhipo, Lorna, CANDLEMAKING LABORER Weekly blood pressure task Care Plan Weekly blood pressure task No Daena Limon Weekly blood pressure task Care Plan [...] Weekly blood pressure task No Pacheco Yoselin, SHEET METAL SUPERINTENDENT Weekly blood pressure task Care Plan Weekly blood pressure task No Pacheco Yoselin, SHEET METAL SUPERINTENDENT Weekly blood pressure task Care Plan Weekly blood pressure task No Pacheco, Yoselin, SHEET METAL SUPERINTENDENT Patient has chronic kidney disease Care Plan Patient has chronic kidney disease No Pacheco, Yoselin, SHEET METAL SUPERINTENDENT Patient has chronic kidney disease Care Plan Patient has chronic kidney disease No Pacheco, Yoselin, SHEET METAL SUPERINTENDENT Patient has chronic kidney disease Care Plan Patient has chronic kidney disease No Pacheco, Yoselin, SHEET METAL SUPERINTENDENT Patient has diabetic neuropathy Care Plan Patient has diabetic neuropathy No Pacheco, Yoselin, SHEET METAL SUPERINTENDENT Patient has diabetic neuropathy Care Plan Patient has diabetic neuropathy No Pacheco, Yoselin, SHEET METAL SUPERINTENDENT Patient has diabetic neuropathy Care Plan Patient has diabetic neuropathy No Pacheco, Yoselin, SHEET METAL SUPERINTENDENT Weekly blood pressure task Care Plan Weekly [...] has diabetic neuropathy No Fiorella Calvo ANP documented as of this encounter Procedures Procedure Name Priority Date/Time Associated Diagnosis Comments D DIMER HIGH SENSITIVITY Routine 02/05/2025 2:36 PM EST Complex tear of meniscus of left knee as current injury, unspecified meniscus, subsequent encounter documented in this encounter Results * D Dimer High Sensitivity (02/05/2025 2:36 PM EST) D Dimer High Sensitivity <150 NG/ML [facility] Comment:D-DIMER HS REFERENCE RANGENote: Our [...] Provider LAB BLOOD ORDERAB LES Final Result Performing Organization Address City/State/[facility] Co de Phone Number [facility] [address] [place] [phone] documented in this encounter Visit Diagnoses Diagnosis Complex tear of meniscus of left knee as current injury, unspecified meniscus, subsequent encounter- Primary Encounter for long-term opiate analgesic use Encounter for long-term (current) use of other medications documented in this encounter Additional Health Concerns [...] documented as of this encounter Care Teams Toll Transmission Worker Relationship Specialty Start Date End Date Fiorella Calvo ANP [address] [place] [address] PCP - General Family Medicine 11/04/20 Kolby Morin, Love [address] [place] [address] Pharmacist Internal Medicine 08/19/23 documented as of this encounter
--- OUTSIDE RECORDS SUMMARY | 2025-02-08 16:12 | XMS_ITS | Encounter Summary ---
Author Organization [employer] Address 75 [facility] 7 [place] [address] Care Team Providers Care Casino Controller Name Role Phone Fiorella Calvo Primary Care Provider [phone] Kolby Morin PharmD Unavailable [phone] Reason for Visit * Reason Comments Med Refill Encounter Details Date Type Department Care Team ([facility] st Contact Info) Description 01/19/2025 Refill [facility]INE 230 [place], [place] [phone] Fiorella Calvo ANP [address] [place] [address] Type 2 diabetes mellitus with hyperlipidemia (HCC) [...] Description 02/15/2025 11:30 AM EST Medication Management [facility] [address] [place] [phone] Rachael Lambert PharmD [address] [place] [phone] 03/08/2025 2:00 PM EST Office Visit [facility] [address] [place] [phone] Fiorella Calvo, ANP [address] [place] [address] documented as of this encounter Goals Goal [...] documented as of this encounter Care Teams Casino Controller Relationship Specialty Start Date End Date Fiorella Calvo ANP [address] [place] [address] PCP - General Family Medicine 11/04/20 Kolby Morin PharmD 230 [place] [address] Pharmacist Internal Medicine 08/19/23 documented as of this encounter
--- OUTSIDE RECORDS SUMMARY | 2025-02-08 16:12 | XMS_ITS | Encounter Summary ---
Author Organization [employer] [facility] Address [address] [place] [address] 7 [place] [address] Care Team Providers Care Organ Pipe Maker Metal Name Role Phone Fiorella Calvo Primary Care Provider [phone] Kolby Morin PharmD Unavailable [phone] Reason for Visit * Reason Onset Date Comments Med Refill 07/16/2023 Encounter Details Date Type Department Care Team (Late st Contact Info) Description 07/16/2023 Refill [facility] [address] [place], [place] [phone] Fiorella Calvo ANP 230 [place] [address] Diabetes mellitus type 2 in obese Social [...] Description 02/15/2025 11:30 AM EST Medication Management [facility] [address] [place] [address] Rachael Lambert PharmD [address] [place] [address] 03/08/2025 2:00 PM EST Office Visit [facility] [address] [place] [address] Fiorella Calvo ANP [address] [place] [address] documented as of this encounter Visit Diagnoses Diagnosis Diabetes mellitus type 2 in obese Type II or unspecified type diabetes mellitus without mention of complication, not stated as uncontrolled documented in this encounter Care Teams Organ Pipe Maker Metal Relationship Specialty Start Date End Date Fiorella Calvo ANP [address] [place] [address] PCP - General Family Medicine 11/04/20 Kolby Morin, KariD [address] [place] [address] Pharmacist Internal Medicine 08/19/23 documented as of this encounter
--- OUTSIDE RECORDS SUMMARY | 2025-02-08 16:12 | XMS_ITS | Encounter Summary ---
Author Organization [employer] Address 75 [facility] 7t [place] [address] Care Team Providers Care Graduate Assistant Athletic Trainer Name Role Phone Fiorella Calvo Primary Care Provider [phone] Kolby Morin PharmD Unavailable [phone] Reason for Visit * Reason Comments Med Refill Encounter Details Date Type Department Care Team (Late st Contact Info) Description 01/21/2025 Refill [facility] 230 [place], [place] [phone] Fiorella Calvo ANP 230 [place] [address] Chronic pain of left knee; Osteoarthritis of [...] 11:30 AM EST Medication Management [facility] [address] [place] [address] Rachael Lambert, KariD [address] [place] [address] 03/08/2025 2:00 PM EST Office Visit [facility] [address] [place] [phone] Fiorella Calvo ANP 230 [place] [address] documented as of this encounter Goals Goal [...] documented as of this encounter Care Teams Graduate Assistant Athletic Trainer Relationship Specialty Start Date End Date Fiorella Calvo ANP 230 [place] [address] PCP - General Family Medicine 11/04/20 Kolby Morin PharmD 230 [place] [address] Pharmacist Internal Medicine 08/19/23 documented as of this encounter
--- OUTSIDE RECORDS SUMMARY | 2025-02-08 16:12 | XMS_ITS | Encounter Summary ---
Author Organization [employer] Address 75 [facility] 7 [place] [address] Care Team Providers Care Rn Ante Partum Name Role Phone Fiorella Calvo Primary Care Provider [phone] Kolby Morin PharmD Unavailable [phone] Reason for Visit * Reason Onset Date Comments Med Refill 03/23/2024 Encounter Details Date Type Department Care Team (Late st Contact Info) Description 03/23/2024 Refill [facility] 230 [place], [place] [phone] Fiorella Calvo ANP 230 [place] [address] Type 2 diabetes mellitus with hyperlipidemia (CMS/HCC) [...] Description 02/15/2025 11:30 AM EST Medication Management [facility] [address] [place] [phone] Rachael Lambert PharmD 230 [place] [address] 03/08/2025 2:00 PM EST Office Visit [facility] [address] [place] [address] Fiorella Calvo ANP 230 [place] [address] documented as of this encounter Goals Goal [...] documented as of this encounter Care Teams Rn Ante Partum Relationship Specialty Start Date End Date Fiorella Calvo ANP 230 [place] [address] PCP - General Family Medicine 11/04/20 Kolby Morin PharmD 230 [place] [address] Pharmacist Internal Medicine 08/19/23 documented as of this encounter
--- OUTSIDE RECORDS SUMMARY | 2025-02-08 16:12 | XMS_ITS | Encounter Summary ---
Author Organization [employer] Address 75 [facility] 7t [place] [address] Care Team Providers Care Pharmacy Resident Name Role Phone Fiorella Calvo Primary Care Provider [phone] Kolby Morin PharmD Unavailable [phone] Encounter Details Date Type Department Care Team ([facility] st Contact Info) Description 02/08/2025 Results Follow-Up [facility] MED[facility]INE 230 [place] [address] Fiorella Clavo ANP 230 [place] [address] [employer] .TB Social History Tobacco Use Types Packs/Day Years [...] 11:30 AM EST Medication Management [facility] MED[facility]INE [address] [place] [address] Rachael Lambert, Love [address] [place] [address] 03/08/2025 2:00 PM EST Office Visit [facility] MED[facility]INE [address] [place] [address] Fiorella Calvo, RIANA [address] [place] [address] documented as of this encounter Goals Goal [...] Weekly blood pressure task No Adilia Ragsdaleupe, SUPPORT MANAGER Weekly blood pressure task Care Plan Weekly blood pressure task No Mitcho Lorna, SUPPORT MANAGER Weekly blood pressure task Care Plan Weekly blood pressure task No [place]o Lorna, SUPPORT MANAGER Patient has chronic kidney disease Care Plan Patient has chronic kidney disease No Okclementineo Lorna, SUPPORT MANAGER Patient has chronic kidney disease Care Plan Patient has chronic kidney disease No [place]o Lorna, SUPPORT MANAGER Patient has chronic kidney disease Care Plan Patient has chronic kidney disease No Okclementineo Lorna, SUPPORT MANAGER Patient has diabetic neuropathy Care Plan Patient has diabetic neuropathy No Okhipo Lorna, SUPPORT MANAGER Patient has diabetic neuropathy Care Plan Patient has diabetic neuropathy No Okhipo, Lorna, SUPPORT MANAGER Patient has diabetic neuropathy Care Plan Patient has diabetic neuropathy No Okclementineo, Lorna, SUPPORT MANAGER Weekly blood pressure task Care Plan Weekly [...] Weekly blood pressure task No Pacheco, Yoselin, APPLICATIONS SUPPORT ANALYST Weekly blood pressure task Care Plan Weekly blood pressure task No Pacheco Yoselin, APPLICATIONS SUPPORT ANALYST Weekly blood pressure task Care Plan Weekly blood pressure task No Pacheco, Yoselin, APPLICATIONS SUPPORT ANALYST Patient has chronic kidney disease Care Plan Patient has chronic kidney disease No Pacheco, Yoselin, APPLICATIONS SUPPORT ANALYST Patient has chronic kidney disease Care Plan Patient has chronic kidney disease No Pacheco, Yoselin, APPLICATIONS SUPPORT ANALYST Patient has chronic kidney disease Care Plan Patient has chronic kidney disease No Pacheco, Yoselin, APPLICATIONS SUPPORT ANALYST Patient has diabetic neuropathy Care Plan Patient has diabetic neuropathy No Pacheco, Yoselin, APPLICATIONS SUPPORT ANALYST Patient has diabetic neuropathy Care Plan Patient has diabetic neuropathy No Pacheco, Yoselin, APPLICATIONS SUPPORT ANALYST Patient has diabetic neuropathy Care Plan Patient has diabetic neuropathy No Pacheco, Yoselin, APPLICATIONS SUPPORT ANALYST Weekly blood pressure task Care Plan Weekly [...] Weekly blood pressure task No Yoselin Pacheco, APPLICATIONS SUPPORT ANALYST Weekly blood pressure task Care Plan Weekly blood pressure task No Yoselin Pacheco LPN Weekly blood pressure task Care Plan Weekly blood pressure task No Mark Pachecoga, APPLICATIONS SUPPORT ANALYST Patient has chronic kidney disease Care Plan Patient has chronic kidney disease No PachecoMarkga, APPLICATIONS SUPPORT ANALYST Patient has chronic kidney disease Care Plan Patient has chronic kidney disease No PachecoMarkga, APPLICATIONS SUPPORT ANALYST Patient has chronic kidney disease Care Plan Patient has chronic kidney disease No PachecoMarkga, APPLICATIONS SUPPORT ANALYST Patient has diabetic neuropathy Care Plan Patient has diabetic neuropathy No PachecoMarkga, APPLICATIONS SUPPORT ANALYST Patient has diabetic neuropathy Care Plan Patient has diabetic neuropathy No PachecoMarkga, APPLICATIONS SUPPORT ANALYST Patient has diabetic neuropathy Care Plan Patient has diabetic neuropathy No PachecoMarkga, APPLICATIONS SUPPORT ANALYST Weekly blood pressure task Care Plan Weekly [...] documented as of this encounter Care Teams Pharmacy Resident Relationship Specialty Start Date End Date Fiorella Calvo ANP 230 [place] [address] PCP - General Family Medicine 11/04/20 Kolby Morin, Love [address] [place] [address] Pharmacist Internal Medicine 08/19/23 documented as of this encounter
--- OUTSIDE RECORDS SUMMARY | 2025-02-08 16:12 | XMS_ITS | Encounter Summary ---
Author Organization [employer] Address 75 [facility] 7 [place] [address] Care Team Providers Care Delivery Analyst Name Role Phone Fiorella Calvo Primary Care Provider [phone] Kolby Morin PharmD Unavailable [phone] Reason for Visit * Reason Onset Date Comments Med Refill 03/23/2024 Encounter Details Date Type Department Care Team (Late st Contact Info) Description 03/23/2024 Refill [facility] 230 [place], [place] [phone] Fiorella Calvo ANP 230 [place] [address] Type 2 diabetes mellitus with hyperlipidemia (CMS/HCC) [...] Description 02/15/2025 11:30 AM EST Medication Management [facility] [address] [place] [address] Rachael Lambert PharmD 230 [place] [address] 03/08/2025 2:00 PM EST Office Visit [facility] [address] [place] [address] Fiorella Calvo ANP [address] [place] [address] documented as of this encounter Goals Goal [...] as of this encounter Care Teams Delivery Analyst Relationship Specialty Start Date End Date Fiorella Calvo ANP [address] [place] [address] PCP - General Family Medicine 11/04/20 Kolby Morin PharmD 230 [place] [address] Pharmacist Internal Medicine 08/19/23 documented as of this encounter
--- OUTSIDE RECORDS SUMMARY | 2025-02-08 16:12 | XMS_ITS | Encounter Summary ---
Author Organization [employer] Address 75 [facility] 7 [place] [address] Care Team Providers Care Blanker Operator Name Role Phone Fiorella Calvo Primary Care Provider [phone] Kolby Morin PharmD Unavailable [phone] Reason for Visit * Reason Comments Med Refill Encounter Details Date Type Department Care Team ([facility] st Contact Info) Description 04/17/2024 Refill [facility] MEDICINE 230 [place], [place] [phone] Fiorella Calvo ANP 230 [place] [address] Type 2 diabetes mellitus with hyperlipidemia ([facility]/HCC) ([facility]) Social History Tobacco Use Types Packs/Day Years [...] AM EST T/C to pt via BLS Education Department Registrar Lexa #[id number]. Pt reports the following blood glucose readings after increasing Tresiba dose: 235, 245, 233, 164, 140. Pt agrees to f/u with pcp as scheduled and call [facility] prn symptoms. * Telephone Encounter - Monica [...] Medication Management [facility] MEDICINE [address] [place] [address] Rachael Lambert, Love [address] [place] [address] 03/08/2025 2:00 PM EST Office Visit [facility] MEDICINE [address] [place] [address] Fiorella Calvo ANP [address] [place] [address] documented as of this encounter Goals Goal [...] documented as of this encounter Care Teams Blanker Operator Relationship Specialty Start Date End Date Fiorella Calvo ANP [address] [place] [address] PCP - General Family Medicine 11/04/20 Kolby Morin PharmD [address] [place] [address] Pharmacist Internal Medicine 08/19/23 documented as of this encounter
--- OUTSIDE RECORDS SUMMARY | 2025-02-08 16:13 | XMS_ITS | Encounter Summary ---
Author Organization [employer] Address [address] [facility] 7t [place] [address] Care Team Providers Care Sweat Box Attendant Name Role Phone Fiorella Calvo Primary Care Provider [phone] Kolby Morin PharmD Unavailable Reason for Visit * Reason Onset Date Comments Med Refill 02/07/2025 Encounter Details Date Type Department Care Team (Late st Contact Info) Description 02/06/2025 Refill [facility] 230 [place], [place] [phone] Fiorella Calvo ANP [address] [place] [address] Chronic pain of left knee; Osteoarthritis of [...] Description 02/15/2025 11:30 AM EST Medication Management [facility] [address] [place] [phone] Rachael Lambert, PharmD [address] [place] [address] 03/08/2025 2:00 PM EST Office Visit [facility] [address] [place] [address] Fiorella Calvo, ANP [address] [place] [address] documented as of this encounter Goals Goal Patient Goal Type Associated Problems Recent Progress Patient-Stated? Author Quit using tobacco (cigarettes, smokeless, etc) Tobacco Use No Kolby Morin PharmD Help patients manage their type 2 [...] Plan Patient has chronic kidney disease No Rodrgiue Acevedo [place] Patient has chronic kidney disease [...] Weekly blood pressure task No Adilia Ragsdaleupe, INVESTMENT BANKING MANAGER Weekly blood pressure task Care Plan Weekly blood pressure task No Melyssa Lorna, INVESTMENT BANKING MANAGER Weekly blood pressure task Care Plan Weekly blood pressure task No Okclementineo Lorna, INVESTMENT BANKING MANAGER Patient has chronic kidney disease Care Plan Patient has chronic kidney disease No Okhipo Lorna, INVESTMENT BANKING MANAGER Patient has chronic kidney disease Care Plan Patient has chronic kidney disease No Okhipo Lorna, INVESTMENT BANKING MANAGER Patient has chronic kidney disease Care Plan Patient has chronic kidney disease No Okhipo, Lorna, INVESTMENT BANKING MANAGER Patient has diabetic neuropathy Care Plan Patient has diabetic neuropathy No Okhipo, Lorna, INVESTMENT BANKING MANAGER Patient has diabetic neuropathy Care Plan Patient has diabetic neuropathy No Okhipo, Lorna, INVESTMENT BANKING MANAGER Patient has diabetic neuropathy Care Plan Patient has diabetic neuropathy No Okclementineo, Lorna, INVESTMENT BANKING MANAGER Weekly blood pressure task Care Plan [...] Weekly blood pressure task No Pacheco, Yoselin, BEADING SAWYER Weekly blood pressure task Care Plan Weekly blood pressure task No Pacheco Yoselin, BEADING SAWYER Weekly blood pressure task Care Plan Weekly blood pressure task No Pacheco, Yoselin, BEADING SAWYER Patient has chronic kidney disease Care Plan Patient has chronic kidney disease No Pacheco, Yoselin, BEADING SAWYER Patient has chronic kidney disease Care Plan Patient has chronic kidney disease No Pacheco, Yoselin, BEADING SAWYER Patient has chronic kidney disease Care Plan Patient has chronic kidney disease No Pacheco, Yoselin, BEADING SAWYER Patient has diabetic neuropathy Care Plan Patient has diabetic neuropathy No Pacheco, Yoselin, BEADING SAWYER Patient has diabetic neuropathy Care Plan Patient has diabetic neuropathy No Pacheco, Yoselin, BEADING SAWYER Patient has diabetic neuropathy Care Plan Patient has diabetic neuropathy No Pacheco, Yoselin, BEADING SAWYER Weekly blood pressure task Care Plan Weekly [...] Calvo ANP documented as of this encounter Visit Diagnoses [...] documented as of this encounter Care Teams Sweat Box Attendant Relationship Specialty Start Date End Date Fiorella Calvo ANP 230 [place] [address] PCP - General Family Medicine 11/04/20 Kolby Morin, Love 230 [place] [address] Pharmacist Internal Medicine 08/19/23 documented as of this encounter
--- OUTSIDE RECORDS SUMMARY | 2025-02-08 16:13 | XMS_ITS | Encounter Summary ---
Author Organization [employer] [facility] Address [address] [place] [address] 7t [place] [address] Care Team Providers Care Macerator Operator Name Role Phone Fiorella Calvo Primary Care Provider [phone] Kolby Morin PharmD Unavailable [phone] Reason for Visit * Reason Onset Date Comments Nurse Triage 09/11/2023 Encounter Details Date Type Department Care Team (Late st Contact Info) Description 09/11/2023 Telephone [facility] MEDICINE 230 [place], [place] [phone] Fiorella Calvo ANP [address] [place] [address] Nurse Triage Social History Tobacco Use Types [...] 09/11/2023 11:35 AM EDT Triage call with [employer] Journalist ID [id number] Pt reports has had chest pain for [...] Chest Pain (Adult) Protocol-Based Disposition: Go to ED/[facility] Now (or to Office with PCP Approval) [...] on chest The caller accepted this outcome Kazakh speaker documented in this encounter Plan of Treatment Upcoming Encounters Date Type Department Care Team (Late st Contact Info) Description 02/15/2025 11:30 AM EST Medication Management [facility] MEDICINE [address] [place] [address] Rachael Lambert, PharmD [address] [place] [address] 03/08/2025 2:00 PM EST Office Visit [facility] MEDICINE [address] [place] [address] Fiorella Calvo ANP [address] [place] [address] documented as of this encounter Goals Goal [...] documented as of this encounter Care Teams Macerator Operator Relationship Specialty Start Date End Date Fiorella Calvo ANP [address] [place] [address] PCP - General Family Medicine 11/04/20 Kolby Morin, KariD [address] [place] [address] Pharmacist Internal Medicine 08/19/23 documented as of this encounter
--- OUTSIDE RECORDS SUMMARY | 2025-02-08 16:13 | XMS_ITS | Encounter Summary ---
Author Organization [employer] Address 75 [facility] 7 [place] [address] Care Team Providers Care Bead Maker Name Role Phone Fiorella Calvo Primary Care Provider [phone] Kolby Morin PharmD Unavailable [phone] Reason for Visit * Reason Onset Date Comments Med Refill 12/08/2024 Encounter Details Date Type Department Care Team (Late st Contact Info) Description 12/08/[address] [facility] MEDICINE 230 [place], [place] [phone] Fiorella Calvo ANP [address] [place] [address] Type 2 diabetes mellitus with hyperlipidemia (CMS/HCC) ([facility]/HCC); Diabetic polyneuropathy associated with [...] 11:30 AM EST Medication Management [facility] MEDICINE [address] [place] [address] Rachael Lambert PharmD [address] [place] [address] 03/08/2025 2:00 PM EST Office Visit [facility] MEDICINE [address] [place] [address] Fiorella Calvo ANP [address] [place] [address] documented as of this encounter Goals Goal Patient Goal Type Associated Problems Recent Progress Patient-Stated? Author Quit using tobacco (cigarettes, smokeless, etc) Tobacco Use No Kolby Mroin, PharmD documented as of this encounter Visit Diagnoses Diagnosis Type 2 diabetes mellitus with hyperlipidemia (HCC) Diabetic polyneuropathy associated with type 2 diabetes mellitus (HCC) documented in this encounter Additional Health Concerns Assessment Noted Time PHQ-9 Depression Total Score: 26 025 11:43 AM EST documented as of this encounter Care Teams Bead Maker Relationship Specialty Start Date End Date Fiorella Calvo ANP [address] [place] [address] PCP - General Family Medicine 11/04/20 Kolby Morin PharmD [address] [place] [address] Pharmacist Internal Medicine 08/19/23 documented as of this encounter
--- OUTSIDE RECORDS SUMMARY | 2025-02-08 16:13 | XMS_ITS | Encounter Summary ---
Author Organization [employer] Address 75 [facility] 7t [place] [address] Care Team Providers Care Twister Doffer Name Role Phone Fiorella Calvo Primary Care Provider [phone] Kolby Morin PharmD Unavailable [phone] Reason for Visit * Reason Onset Date Comments Med Refill 02/05/2025 Encounter Details Date Type Department Care Team ([facility] st Contact Info) Description 02/05/2025 Refill [facility] [address] [place] [address] Andria Barrios, RN [address] [place] [address] Chronic pain of left knee; Osteoarthritis of [...] * Telephone Encounter - RIANA Wahl - 02/05/2025 5:15 PM EST dulicate documented in this encounter Plan of Treatment Upcoming Encounters Date Type Department Care Team (Late st Contact Info) Description 02/15/2025 11:30 AM EST Medication Management [facility] MEDICINE [address] [place] [address] Rachael Lambert, PharmD [address] [place] [address] 03/08/2025 2:00 PM EST Office Visit [facility] MEDICINE [address] [place] [address] Fiorella Calvo ANP [address] [place] [address] documented as of this encounter Goals Goal [...] Weekly blood pressure task No Adilia Ragsdaleupe, AIRCRAFT CLEANING SUPERVISOR Weekly blood pressure task Care Plan Weekly blood pressure task No Okclementineo Lorna, AIRCRAFT CLEANING SUPERVISOR Weekly blood pressure task Care Plan Weekly blood pressure task No Okhipo Lorna, AIRCRAFT CLEANING SUPERVISOR Patient has chronic kidney disease Care Plan Patient has chronic kidney disease No Okhipo Lorna, AIRCRAFT CLEANING SUPERVISOR Patient has chronic kidney disease Care Plan Patient has chronic kidney disease No Okhipo, Lorna, AIRCRAFT CLEANING SUPERVISOR Patient has chronic kidney disease Care Plan Patient has chronic kidney disease No Okhipo, Lorna, AIRCRAFT CLEANING SUPERVISOR Patient has diabetic neuropathy Care Plan Patient has diabetic neuropathy No Okclementineo Lorna, AIRCRAFT CLEANING SUPERVISOR Patient has diabetic neuropathy Care Plan Patient has diabetic neuropathy No Okhipo, Lorna, AIRCRAFT CLEANING SUPERVISOR Patient has diabetic neuropathy Care Plan Patient has diabetic neuropathy No Okhipo, Lorna, AIRCRAFT CLEANING SUPERVISOR Weekly blood pressure task Care Plan [...] Patient has diabetic neuropathy No Braxton, Deana Patient has diabetic neuropathy Care Plan [...] has diabetic neuropathy No Camila Turk, PharmD Patient has diabetic neuropathy Care Plan [...] Weekly blood pressure task No Yoselin Pacheco, UNDERGRADUATE ADVISOR Weekly blood pressure task Care Plan Weekly blood pressure task No Yoselin Pacheco, UNDERGRADUATE ADVISOR Weekly blood pressure task Care Plan Weekly blood pressure task No PachecoMarkga, UNDERGRADUATE ADVISOR Patient has chronic kidney disease Care Plan Patient has chronic kidney disease No Mark Pachecoga, UNDERGRADUATE ADVISOR Patient has chronic kidney disease Care Plan Patient has chronic kidney disease No Mark Pachecoga, UNDERGRADUATE ADVISOR Patient has chronic kidney disease Care Plan Patient has chronic kidney disease No PachecoMarkga, UNDERGRADUATE ADVISOR Patient has diabetic neuropathy Care Plan Patient has diabetic neuropathy No PachecoMarkga, UNDERGRADUATE ADVISOR Patient has diabetic neuropathy Care Plan Patient has diabetic neuropathy No Pacheco, Yoselin, UNDERGRADUATE ADVISOR Patient has diabetic neuropathy Care Plan Patient has diabetic neuropathy No PachecoMarkga, UNDERGRADUATE ADVISOR Weekly blood pressure task Care Plan Weekly [...] documented as of this encounter Care Teams Twister Doffer Relationship Specialty Start Date End Date Fiorella Calvo ANP [address] [place] [address] PCP - General Family Medicine 11/04/20 Kolby Morin, Love [address] [place] [address] Pharmacist Internal Medicine 08/19/23 documented as of this encounter
--- OUTSIDE RECORDS SUMMARY | 2025-02-08 16:13 | XMS_ITS | Encounter Summary ---
Author Organization [employer] Address 75 [facility] 7t [place] [address] Care Team Providers Care Energy Professional Name Role Phone Fiorella Calvo Primary Care Provider [phone] Kolby Morin PharmD Unavailable [phone] Reason for Visit * Reason Onset Date Comments Med Refill 04/14/2024 Encounter Details Date Type Department Care Team (Late st Contact Info) Description 04/14/2024 Refill [facility] 230 [place], [place] [phone] Fiorella Calvo ANP 230 [place] [address] Type 2 diabetes mellitus with hyperlipidemia ([facility]/HCC) ([facility]) Social History Tobacco Use Types Packs/Day Years [...] AM EST Medication Management [facility] [address] [place] [address] Rachael Lambert, KariD [address] [place] [address] 03/08/2025 2:00 PM EST Office Visit [facility] [address] [place] [address] Fiorella Calvo ANP [address] [place] [address] documented as of this encounter Goals Goal [...] documented as of this encounter Care Teams Energy Professional Relationship Specialty Start Date End Date Fiorella Calvo ANP [address] [place] [address] PCP - General Family Medicine 11/04/20 Kolby Morin, KariD [address] [place] [address] Pharmacist Internal Medicine 08/19/23 documented as of this encounter
--- OUTSIDE RECORDS SUMMARY | 2025-02-08 16:13 | XMS_ITS | Encounter Summary ---
Author Organization [employer] Address 75 [facility] 7t [place] [address] Care Team Providers Care Mill Turner Name Role Phone Fiorella Calvo Primary Care Provider [phone] Kolby Morin PharmD Unavailable [phone] Reason for Visit * Reason Onset Date Comments Med Refill 02/08/2025 Encounter Details Date Type Department Care Team (Late st Contact Info) Description 02/08/2025 Refill [facility] 230 [place] [address] Fiorella Calvo ANP [address] [place] [address] Chronic pain of left knee; Osteoarthritis of [...] Description 02/15/2025 11:30 AM EST Medication Management [facility] [address] [place] [address] Rachael Lambert, PharmD [address] [place] [address] 03/08/2025 2:00 PM EST Office Visit [facility] [address] [place] [address] Fiorella Calvo, ANP [address] [place] [address] documented as of this encounter Goals Goal [...] Weekly blood pressure task No Adilia Ragsdaleupe, STEAMFITTER Weekly blood pressure task Care Plan Weekly blood pressure task No Melyssa Lorna, STEAMFITTER Weekly blood pressure task Care Plan Weekly blood pressure task No Okclementineo Lorna, STEAMFITTER Patient has chronic kidney disease Care Plan Patient has chronic kidney disease No Okhipo Lorna, STEAMFITTER Patient has chronic kidney disease Care Plan Patient has chronic kidney disease No Okhipo Lorna, STEAMFITTER Patient has chronic kidney disease Care Plan Patient has chronic kidney disease No Okhipo, Lorna, STEAMFITTER Patient has diabetic neuropathy Care Plan Patient has diabetic neuropathy No Okhipo, Lorna, STEAMFITTER Patient has diabetic neuropathy Care Plan Patient has diabetic neuropathy No Okhipo, Lorna, STEAMFITTER Patient has diabetic neuropathy Care Plan Patient has diabetic neuropathy No Okclementineo, Lorna, STEAMFITTER Weekly blood pressure task Care Plan Weekly [...] Weekly blood pressure task No Pacheco, Yoselin, TRIPE SCRAPER Weekly blood pressure task Care Plan Weekly blood pressure task No Pacheco Yoselin, TRIPE SCRAPER Weekly blood pressure task Care Plan Weekly blood pressure task No Pacheco, Yoselin, TRIPE SCRAPER Patient has chronic kidney disease Care Plan Patient has chronic kidney disease No Pacheco, Yoselin, TRIPE SCRAPER Patient has chronic kidney disease Care Plan Patient has chronic kidney disease No Pacheco, Yoselin, TRIPE SCRAPER Patient has chronic kidney disease Care Plan Patient has chronic kidney disease No Pacheco, Yoselin, TRIPE SCRAPER Patient has diabetic neuropathy Care Plan Patient has diabetic neuropathy No Pacheco, Yoselin, TRIPE SCRAPER Patient has diabetic neuropathy Care Plan Patient has diabetic neuropathy No Pacheco, Yoselin, TRIPE SCRAPER Patient has diabetic neuropathy Care Plan Patient has diabetic neuropathy No Pacheco, Yoselin, TRIPE SCRAPER Weekly blood pressure task Care Plan Weekly [...] Weekly blood pressure task No Yoselin Pacheco, TRIPE SCRAPER Weekly blood pressure task Care Plan Weekly blood pressure task No PachecoMarkga, TRIPE SCRAPER Weekly blood pressure task Care Plan Weekly blood pressure task No PachecoMarkga, TRIPE SCRAPER Patient has chronic kidney disease Care Plan Patient has chronic kidney disease No PachecoMarkga, TRIPE SCRAPER Patient has chronic kidney disease Care Plan Patient has chronic kidney disease No PachecoMarkga, TRIPE SCRAPER Patient has chronic kidney disease Care Plan Patient has chronic kidney disease No PachecoMarkga, TRIPE SCRAPER Patient has diabetic neuropathy Care Plan Patient has diabetic neuropathy No PachecoMarkga, TRIPE SCRAPER Patient has diabetic neuropathy Care Plan Patient has diabetic neuropathy No Mark Pachecoga, TRIPE SCRAPER Patient has diabetic neuropathy Care Plan Patient has diabetic neuropathy No Yoselin Pacheco, TRIPE SCRAPER Weekly blood pressure task Care Plan Weekly [...] Care Plan Patient has diabetic neuropathy No McMann, Andria, RN documented as of this encounter Visit [...] documented as of this encounter Care Teams Mill Turner Relationship Specialty Start Date End Date Fiorella Calvo ANP [address] [place] [address] PCP - General Family Medicine 11/04/20 Kolby Morin PharmD [address] [place] [address] Pharmacist Internal Medicine 08/19/23 documented as of this encounter
--- OUTSIDE RECORDS SUMMARY | 2025-02-08 16:13 | XMS_ITS | Encounter Summary ---
Author Organization [employer] [facility] Address 75 [facility] 7t [place] [address] Care Team Providers Care Solderer Torch Name Role Phone Fiorella Calvo Primary Care Provider [phone] Kolby Morin PharmD Unavailable [phone] Reason for Visit * Reason Onset Date Comments Call Back Request 08/02/2023 Encounter Details Date Type Department Care Team (Late st Contact Info) Description 08/02/2023 Telephone [facility] 230 [place], [place] [phone] Fiorella Calvo ANP 230 [place] [address] Call Back Request Social History Tobacco Use [...] stated was advised to return call however fiction and nonfiction prose writer does not see anything documented on patients chart documented in this encounter Plan of Treatment Upcoming Encounters Date Type Department Care Team (Late st Contact Info) Description 02/15/2025 11:30 AM EST Medication Management [facility] [address] [place] [address] Rachael Lambert PharmD [address] [place] [address] 03/08/2025 2:00 PM EST Office Visit [facility] [address] [place] [address] Fiorella Calvo ANP [address] [place] [address] documented as of this encounter Visit Diagnoses Not on filedocumented in this encounter Additional Health Concerns Assessment Noted Time PHQ-9 Depression Total Score: 26 024 2:50 PM EDT documented as of this encounter Care Teams Solderer Torch Relationship Specialty Start Date End Date Fiorella Calvo ANP [address] [place] [address] PCP - General Family Medicine 11/04/20 Kolby Morin, Love [address] [place] [address] Pharmacist Internal Medicine 08/19/23 documented as of this encounter
--- OUTSIDE RECORDS SUMMARY | 2025-02-08 16:13 | XMS_ITS | Encounter Summary ---
Author Organization [employer] Address 75 [facility] 7 [place] [address] Care Team Providers Care Gas Dispatcher Name Role Phone Fiorella Calvo Primary Care Provider [phone] Kolby Morin PharmD Unavailable [phone] Reason for Visit * Reason Onset Date Comments PT1 04/15/2024 Encounter Details Date Type Department Care Team ([facility] st Contact Info) Description 04/15/[address] [facility] MEDICINE 230 [place], [place] [phone] Fiorella Calvo ANP [address] [place], [place] [phone] PT1 Social History Tobacco Use Types Packs/Day [...] Score 19 04/17/2024 11:43 AM EST Kayce oLpez [place] documented as of this encounter Miscellaneous Notes * Telephone Encounter - Leisa Alyssa Limon - 04/15/2024 4:01 PM EST Patient calling requesting PT1 Home Address verified: Y/N: Yes Provider name or facility name: [facility] [address] [facility], [place] [address] Escort needed: Y/N: No Do you have a wheelchair: Y/N: No If yes- Manual or electric: N/A Visits: (2x monthly) Patient calling requesting PT1 Home Address verified: Y/N: Yes Provider name or facility name: [facility] [address] [place] [address]. Escort needed: Y/N: No Do you have a wheelchair: Y/N: No If yes- Manual or electric: N/A Visits: (2x monthly) Patient calling requesting PT1 Home Address verified: Y/N: Yes Provider name or facility name: [address] Floor, [place] [address] Escort needed: Y/N: No Do you have a wheelchair: Y/N: No If yes- Manual or electric: N/A Visits: (2x monthly) documented in this encounter Plan of Treatment Upcoming Encounters Date Type Department Care Team (Late st Contact Info) Description 02/15/2025 11:30 AM EST Medication Management [facility] MEDICINE 230 [place] [address] Rachael Lambert, PharmD [address] [place] [address] 03/08/2025 2:00 PM EST Office Visit [facility] MED[facility] 230 [place] [address] Fiorella Calvo, RIANA [address] [place] [address] documented as of this encounter Goals Goal Patient Goal Type Associated Problems Recent Progress Patient-Stated? Author Quit using tobacco (cigarettes, smokeless, etc) Tobacco Use No Kolby Morin, Love documented as of this encounter Visit Diagnoses Not on filedocumented in this encounter Additional Health Concerns Assessment Noted Time PHQ-9 Depression Total Score: 20 024 9:15 AM EDT documented as of this encounter Care Teams Gas Dispatcher Relationship Specialty Start Date End Date Fiorella Calvo ANP [address] [place] [address] PCP - General Family Medicine 11/04/20 Kolby Morin, KariD [address] [place] [address] Pharmacist Internal Medicine 08/19/23 documented as of this encounter
--- OUTSIDE RECORDS SUMMARY | 2025-02-08 16:13 | XMS_ITS | Encounter Summary ---
Author Organization [employer] Address 75 [facility] 7t [place] [address] Care Team Providers Care Multiplex Operator Name Role Phone Fiorella Calvo Primary Care Provider [phone] Kolby Morin PharmD Unavailable [phone] Reason for Visit * Reason Onset Date Comments Med Refill 01/21/2025 Encounter Details Date Type Department Care Team (Late st Contact Info) Description 01/21/2025 Refill [facility] 230 [place] [address] Fiorella Calvo ANP 230 [place] [address] Chronic pain of left knee; Osteoarthritis of [...] Description 02/15/2025 11:30 AM EST Medication Management [facility] [address] [place] [address] Rachael Lambert, KariD [address] [address] 03/08/2025 2:00 PM EST Office Visit [facility] [address] [place] [address] Fiorella Calvo ANP [address] [place] [address] documented as of this encounter Goals Goal [...] documented as of this encounter Care Teams Multiplex Operator Relationship Specialty Start Date End Date Fiorella Calvo ANP 230 [place] [address] PCP - General Family Medicine 11/04/20 Kolby Morin, Love [address] [place] [address] Pharmacist Internal Medicine 08/19/23 documented as of this encounter
--- OUTSIDE RECORDS SUMMARY | 2025-02-08 16:13 | XMS_ITS | Encounter Summary ---
Author Organization [employer] Address [address] [place] [address] 7t [place] [address] Care Team Providers Care Hog Driver Name Role Phone Fiorella Calvo Primary Care Provider [phone] Kolby Morin PharmD Unavailable [phone] Reason for Visit * Reason Onset Date Comments Med Refill 02/04/2025 Encounter Details Date Type Department Care Team (Late st Contact Info) Description 02/03/2025 Refill [facility] OPTOMETRY [address] [place], [place] [phone] TarkaEvelia, OD [address] [place] [address] Dry eyes, bilateral Social History Tobacco Use [...] Description 02/15/2025 11:30 AM EST Medication Management [facility] MEDICINE [address] [place] [phone] Rachael Lambert, KariD [address] [place] [address] 03/08/2025 2:00 PM EST Office Visit [facility] MEDICINE [address] [place] [address] Fiorella Calvo, ANP 230 [place] [address] documented as of this encounter Goals Goal [...] Weekly blood pressure task No Adilia Ragsdaleupe, NEGATIVE TURNER Weekly blood pressure task Care Plan Weekly blood pressure task No Hillary Ragsdalee, NEGATIVE TURNER Weekly blood pressure task Care Plan Weekly blood pressure task No Adilia Ragsdaleupe, NEGATIVE TURNER Patient has chronic kidney disease Care Plan Patient has chronic kidney disease No Okclementineo Lorna, NEGATIVE TURNER Patient has chronic kidney disease Care Plan Patient has chronic kidney disease No Adilia Ragsdaleupe, NEGATIVE TURNER Patient has chronic kidney disease Care Plan Patient has chronic kidney disease No Okclementineo Lorna, NEGATIVE TURNER Patient has diabetic neuropathy Care Plan Patient has diabetic neuropathy No Okclementineo Lorna, NEGATIVE TURNER Patient has diabetic neuropathy Care Plan Patient has diabetic neuropathy No Okclementineo Lorna, NEGATIVE TURNER Patient has diabetic neuropathy Care Plan Patient has diabetic neuropathy No Okclementineo Lorna, NEGATIVE TURNER Weekly blood pressure task Care Plan Weekly [...] Patient has chronic kidney disease No Puia, Caimla, PharmD Patient has diabetic neuropathy Care Plan [...] documented as of this encounter Care Teams Hog Driver Relationship Specialty Start Date End Date Fiorella Calvo ANP 230 [place] [address] PCP - General Family Medicine 11/04/20 Kolby Morin PharmD 230 [place] [address] Pharmacist Internal Medicine 08/19/23 documented as of this encounter
--- OUTSIDE RECORDS SUMMARY | 2025-02-08 16:13 | XMS_ITS | Encounter Summary ---
Author Organization [employer] Address 75 [facility] 7 [place] [address] Care Team Providers Care Human Resources Project Coordinator Name Role Phone Fiorella Calvo Primary Care Provider [phone] Kolby Morin PharmD Unavailable [phone] Reason for Visit * Reason Onset Date Comments Med Refill 12/04/2024 Encounter Details Date Type Department Care Team (Late st Contact Info) Description 12/04/2024 Refill [facility] MED[facility] 230 [place], [place] [phone] Fiorella Calvo ANP [address] [place] [address] Type 2 diabetes mellitus with hyperlipidemia (CMS/HCC) ([facility]/HCC); Diabetic polyneuropathy associated with type 2 [...] Description 02/15/2025 11:30 AM EST Medication Management [facility] MEDICINE [address] [place] [address] Rachael Lambert PharmD [address] [place] [address] 03/08/2025 2:00 PM EST Office Visit [facility] MEDICINE [address] [place] [address] Firoella Calvo ANP [address] [place] [address] documented as of this encounter Goals Goal [...] documented as of this encounter Care Teams Human Resources Project Coordinator Relationship Specialty Start Date End Date Fiorella Calvo ANP [address] [place] [address] PCP - General Family Medicine 11/04/20 Kolby Morin PharmD [address] [place] [address] Pharmacist Internal Medicine 08/19/23 documented as of this encounter
--- OUTSIDE RECORDS SUMMARY | 2025-02-08 16:13 | XMS_ITS | Encounter Summary ---
Author Organization [employer] Address 75 [facility] 7t [place] [address] Care Team Providers Care Labor And Delivery Nurse Name Role Phone Fiorella Calvo Primary Care Provider [phone] Kolby Morin PharmD Unavailable [phone] Encounter Details Date Type Department Care Team ([facility] st Contact Info) Description 01/13/2025 Results Follow-Up [facility] 230 [place] [address] Fiorella Calvo ANP 230 [place] [address] POCT Glucose, POCT Hgb A1c, POCT Glucose, [...] the past 12 months, has t he [employer], gas, oil or water [employer] threatened to shut off services in your [...] preguntas. Take care, Cu??Fiorella de los santos AUTO CLUB TRAVEL COUNSELOR documented in this encounter Plan of Treatment Upcoming Encounters Date Type Department Care Team (Late st Contact Info) Description 02/15/2025 11:30 AM EST Medication Management [facility] [address] [place] [address] Rachael Lambert, KariD [address] [place] [address] 03/08/2025 2:00 PM EST Office Visit [address] [address] Fiorella Calvo ANP [address] [place] [address] documented as of this encounter Goals Goal [...] documented as of this encounter Care Teams Labor And Delivery Nurse Relationship Specialty Start Date End Date Fiorella Calvo ANP [address] [place] [address] PCP - General Family Medicine 11/04/20 Kolby Morin, KariD [address] [place] [address] Pharmacist Internal Medicine 08/19/23 documented as of this encounter"
--- OUTSIDE RECORDS SUMMARY | 2025-02-08 16:13 | XMS_ITS | Encounter Summary ---
Author Organization [employer] [facility] Address 75 [facility] 7t [place] [address] Care Team Providers Care V/Stol Landing Signal Officer Name Role Phone Fiorella Calvo Primary Care Provider [phone] Kolby Morin PharmD Unavailable [phone] Reason for Referral * Consultation (Routine) - Authorized Specialty Diagnoses / Procedures Referred By Contac t Referred To Contact Pharmacy Diagnoses Tobacco use disorder Holland Burks MD [address] [place] [address] Phone: tel: fax: Referral ID Status Reason Start Date Expiration Date Visits Requested Visits Authorized [id number] Authorized Consult and Treat 02/03/2025 02/03/2026 6 6 Encounter Details Date Type Department Care Team (Late st Contact Info) Description 02/03/[address] [facility] MEDICINE 230 [place], [place] [phone] Holland Burks MD [address] [place], [place] [phone] Tobacco use disorder (Primary Dx) Social History [...] 02/15/2025 11:30 AM EST Medication Management [facility] MEDICINE 230 [place] [address] Rachael Lambert, PharmD 230 [place] [address] 03/08/2025 2:00 PM EST Office Visit [facility]INE 230 [place] [address] Fiorella Calvo ANP [address] [place] [address] Scheduled Referrals Name Type Priority Associated Diagnoses [...] Plan Weekly blood pressure task No Lorna Ragsdale FNP Weekly blood pressure task Care Plan Weekly blood pressure task No Adilia Ragsdaleupe FORMULA ROOM WORKER Weekly blood pressure task Care Plan Weekly blood pressure task No Adilia Ragsdaleupe FORMULA ROOM WORKER Patient has chronic kidney disease Care Plan Patient has chronic kidney disease No Lorna Ragsdale FNP Patient has chronic kidney disease Care Plan Patient has chronic kidney disease No Okhipo, Lorna, FORMULA ROOM WORKER Patient has chronic kidney disease Care Plan Patient has chronic kidney disease No Okhipo, Lorna, FORMULA ROOM WORKER Patient has diabetic neuropathy Care Plan Patient has diabetic neuropathy No Okhipo, Lorna, FORMULA ROOM WORKER Patient has diabetic neuropathy Care Plan Patient has diabetic neuropathy No Okhipo, Lorna, FORMULA ROOM WORKER Patient has diabetic neuropathy Care Plan Patient has diabetic neuropathy No Okhipo, Lorna, FORMULA ROOM WORKER Weekly blood pressure task Care Plan Weekly [...] Plan Patient has chronic kidney disease No PuAidan garciayssa, PharmD Patient has chronic kidney disease Care Plan Patient has chronic kidney disease No PuAidan garciayssa PharmD Patient has diabetic neuropathy Care Plan Patient has diabetic neuropathy No Puia Camila, PharmD Patient has diabetic neuropathy Care Plan Patient has diabetic neuropathy No Pujose Camila PharmD Patient has diabetic neuropathy Care Plan [...] documented as of this encounter Care Teams V/Stol Landing Signal Officer Relationship Specialty Start Date End Date Fiorella Calvo ANP [address] [place] [address] PCP - General Family Medicine 11/04/20 Kolby Morin, Love [address] [place] [address] Pharmacist Internal Medicine 08/19/23 documented as of this encounter
--- OUTSIDE RECORDS SUMMARY | 2025-02-08 16:13 | XMS_ITS | Encounter Summary ---
Author Organization [employer] [facility] Address 75 [facility] 7 [place] [address] Care Team Providers Care Director Of Psychology Name Role Phone Fiorella Calvo Primary Care Provider [phone] Kolby Morin PharmD Unavailable [phone] Reason for Visit * Reason Onset Date Comments Nurse Triage 11/30/2024 Encounter Details Date Type Department Care Team (Late st Contact Info) Description 11/30/2024 Telephone [facility] MEDICINE 230 [place], [place] [phone] Fiorella Calvo ANP 230 [place], [place] [phone] Nurse Triage Social History Tobacco Use Types [...] 11/30/2024 5:48 PM EDT Triage call with [facility] cathead worker , [place] [address]. Pt reports blood sugar of 269 today [...] sugar above 300 Please contact pt at [phone]. (Hungarian Speaker) documented in this encounter Plan of Treatment Upcoming Encounters Date Type Department Care Team (Late st Contact Info) Description 02/15/2025 11:30 AM EST Medication Management [address] [address] Rachael Lambert PharmD [address] [place] [address] 03/08/2025 2:00 PM EST Office Visit [address] [address] Fiorella Calvo ANP [address] [place] [address] documented as of this encounter Goals Goal [...] of this encounter Care Teams Director Of Psychology Relationship Specialty Start Date End Date Fiorella Calvo ANP [address] [place] [address] PCP - General Family Medicine 11/04/20 Kolby Morin, PharmD [address] [place] [address] Pharmacist Internal Medicine 08/19/23 documented as of this encounter
--- OUTSIDE RECORDS SUMMARY | 2025-02-08 16:13 | XMS_ITS | Encounter Summary ---
Author Organization [employer] [facility] Address [address] [place] [address] 7 [place] [address] Care Team Providers Care Dike Supervisor Name Role Phone Fiorella Calvo Primary Care Provider [phone] Kolby Morin PharmD Unavailable [phone] Reason for Visit * Reason Comments Med Change Request Encounter Details Date Type Department Care Team (Late st Contact Info) Description 04/14/2023 Refill [facility] 230 [place], [place] [phone] Fiorella Calvo ANP 230 [place] [address] Chronic left-sided low back pain with left-sided [...] Description 02/15/2025 11:30 AM EST Medication Management [facility] 230 [place] [address] Rachael Lambert, PharmD 230 [place] [address] 03/08/2025 2:00 PM EST Office Visit [facility] [address] [place] [address] Fiorella Calvo ANP [address] [place] [address] documented as of this encounter Visit Diagnoses Diagnosis Chronic left-sided low back pain with left-sided sciatica Diabetic polyneuropathy associated with type 2 diabetes mellitus (HCC) Anxiety Anxiety state, unspecified documented in this encounter Care Teams Dike Supervisor Relationship Specialty Start Date End Date Fiorella Calvo ANP [address] [place] [address] PCP - General Family Medicine 11/04/20 Kolby Morin, KariD [address] [place] [address] Pharmacist Internal Medicine 08/19/23 documented as of this encounter
--- OUTSIDE RECORDS SUMMARY | 2025-02-08 16:13 | XMS_ITS | Encounter Summary ---
Author Organization [employer] Address [address] [facility] 7t [place] [address] Care Team Providers Care Educational Speech Language Clinician Name Role Phone Fiorella Calvo Primary Care Provider [phone] Kolby Morin PharmD Unavailable [phone] Reason for Visit * Reason Onset Date Comments Durable Medical Equipment 01/21/2025 Encounter Details Date Type Department Care Team (Late st Contact Info) Description 01/21/2025 Telephone [facility] 230 [place], [place] [phone] Fiorella Calvo ANP 230 [place], [place] [phone] Durable Medical Equipment Social History Tobacco Use [...] the past 12 months, has t he [employer], gas, oil or water company threatened to [...] monitor was. Any questions contact pt at [phone] documented in this encounter Plan of Treatment Upcoming Encounters Date Type Department Care Team (Late st Contact Info) Description 02/15/2025 11:30 AM EST Medication Management [address] [address] Rachael Lambert, Love [address] [place] [address] 03/08/2025 2:00 PM EST Office Visit [facility] [address] [place] [address] Fiorella Calvo ANP 230 [place] [address] documented as of this encounter Goals Goal Patient Goal Type Associated Problems Recent Progress Patient-Stated? Author Quit using tobacco (cigarettes, smokeless, etc) Tobacco Use No Kolby Morin, Love documented as of this encounter Visit Diagnoses Not on filedocumented in this encounter Additional Health Concerns Assessment Noted Time PHQ-9 Depression Total Score: 21 025 1:51 PM EDT documented as of this encounter Care Teams Educational Speech Language Clinician Relationship Specialty Start Date End Date Fiorella Calvo ANP [address] [place] [address] [phone] PCP - General Family Medicine 11/04/20 Kolby Morin, Love [address] [place] [address] [phone] Pharmacist Internal Medicine 08/19/23 documented as of this encounter
--- OUTSIDE RECORDS SUMMARY | 2025-02-08 16:13 | XMS_ITS | Encounter Summary ---
Author Organization [facility] Address [address] [place] [address] 7 [place] [address] Care Team Providers Care Ldr Rn Name Role Phone Fiorella Calvo Primary Care Provider [phone] Kolby Morin PharmD Unavailable [phone] Reason for Visit * Reason Onset Date Comments Follow Up Extended 04/24/23 04/22/2023 Encounter Details Date Type Department Care Team ([facility] Contact Info) Description 04/22/2023 Telephone [facility] 230 [place], [place] [phone] Fiorella Calvo ANP 230 [place] [address] Follow Up Extended 04/24/23 Social History Tobacco [...] wanting to reschedule follow ep ext 04/24/23. Stencil Sprayer did not see anything available. Please contact pt at [phone]. documented in this encounter Plan of Treatment Upcoming Encounters Date Type Department Care Team (Late Contact Info) Description 02/15/2025 11:30 AM EST Medication Management [address] [address] Rachael Lambert, Love [address] [place] [address] 03/08/2025 2:00 PM EST Office Visit [facility] [address] [place] [address] Fiorella Calvo ANP [address] [place] [address] documented as of this encounter Visit Diagnoses Not on filedocumented in this encounter Care Teams Ldr Rn Relationship Specialty Start Date End Date Fiorella Calvo ANP [address] [place] [address] PCP - General Family Medicine 11/04/20 Kolby Morin, KariD [address] [place] [address] Pharmacist Internal Medicine 08/19/23 documented as of this encounter
--- OUTSIDE RECORDS SUMMARY | 2025-02-08 16:13 | XMS_ITS | Encounter Summary ---
Author Organization [employer] [facility] Address [address] [place] [address] 7t [place] [address] Care Team Providers Care Patient Accounting Representative Name Role Phone Fiorella Calvo Primary Care Provider [phone] Kolby Morin PharmD Unavailable [phone] Reason for Visit * Reason Comments Med Refill Encounter Details Date Type Department Care Team (Late st Contact Info) Description 09/18/2023 Refill [facility] [address] [place] [address] [phone] Fiorella Calvo ANP 230 [place] [address] Pain and swelling of left knee Social [...] Description 02/15/2025 11:30 AM EST Medication Management [address] [address] Rachael Lambert, KariD [address] [place] [address] 03/08/2025 2:00 PM EST Office Visit [address] [address] Fiorella Calvo ANP [address] [place] [address] documented as of this encounter Goals Goal [...] documented as of this encounter Care Teams Patient Accounting Representative Relationship Specialty Start Date End Date Fiorella Calvo ANP [address] [place] [address] PCP - General Family Medicine 11/04/20 Kolby Morin, KariD [address] [place] [address] Pharmacist Internal Medicine 08/19/23 documented as of this encounter
--- OUTSIDE RECORDS SUMMARY | 2025-02-08 16:13 | XMS_ITS | Encounter Summary ---
Author Organization [employer] Address [address] [facility] 7 [place] [address] Care Team Providers Care Nurse Special Name Role Phone Fiorella Clavo Primary Care Provider [phone] Kolby Morin PharmD Unavailable [phone] Reason for Visit * Reason Onset Date Comments Med Refill 04/15/2024 Encounter Details Date Type Department Care Team (Late st Contact Info) Description 04/15/2024 Refill [facility] 230 [place], [place] [phone] Fiorella Calvo ANP 230 [place] [address] Type 2 diabetes mellitus with hyperlipidemia (CMS/HCC) ([facility]/HCC); Diabetic polyneuropathy associated with type 2 diabetes [...] Author Nearly every day 04/17/2024 11:43 AM Kayec Duarte [place] * Feeling down, depressed, or [...] Description 02/15/2025 11:30 AM EST Medication Management [facility] [address] [place] [address] Rachael Lambert, KariD [address] [place] [address] 03/08/2025 2:00 PM EST Office Visit [address] [address] Fiorella Calvo ANP [address] [place] [address] documented as of this encounter Goals Goal [...] documented as of this encounter Care Teams Nurse Special Relationship Specialty Start Date End Date Fiorella Calvo ANP [address] [place] [address] PCP - General Family Medicine 11/04/20 Kolby Morin, KariD [address] [place] [address] Pharmacist Internal Medicine 08/19/23 documented as of this encounter
--- OUTSIDE RECORDS SUMMARY | 2025-02-08 16:13 | XMS_ITS | Encounter Summary ---
Author Organization [employer] Address [address] [facility] 7t [place] [address] Care Team Providers Care Librarian Specialist Name Role Phone Fiorella Calvo Primary Care Provider [phone] Kolby Morin PharmD Unavailable [phone] Reason for Visit * Reason Onset Date Comments Med Refill 02/04/2025 Encounter Details Date Type Department Care Team (Late st Contact Info) Description 02/03/2025 Refill [facility] 230 [place], [place] [phone] Fiorella Calvo ANP 230 [place] [address] Type 2 diabetes mellitus with hyperlipidemia (HCC) [...] 11:30 AM EST Medication Management [facility] [address] [place] [address] Rachael Lambert, PharmD 230 [place] [address] 03/08/2025 2:00 PM EST Office Visit [facility] [address] [place] [address] Fiorella Calvo ANP 230 [place] [address] documented as of this encounter Goals Goal [...] Care Plan Weekly blood pressure task No Okolga Lorna, ENGINE TESTING SUPERVISOR Weekly blood pressure task Care Plan Weekly blood pressure task No Okclementineo Lorna, ENGINE TESTING SUPERVISOR Weekly blood pressure task Care Plan Weekly blood pressure task No Okhipo, Lorna, ENGINE TESTING SUPERVISOR Patient has chronic kidney disease Care Plan Patient has chronic kidney disease No Okhipo, Lorna, ENGINE TESTING SUPERVISOR Patient has chronic kidney disease Care Plan Patient has chronic kidney disease No Okhipo, Lorna, ENGINE TESTING SUPERVISOR Patient has chronic kidney disease Care Plan Patient has chronic kidney disease No Okhipo, Lorna, ENGINE TESTING SUPERVISOR Patient has diabetic neuropathy Care Plan Patient has diabetic neuropathy No Okhipo, Lorna, ENGINE TESTING SUPERVISOR Patient has diabetic neuropathy Care Plan Patient has diabetic neuropathy No Okhipo, Lorna, ENGINE TESTING SUPERVISOR Patient has diabetic neuropathy Care Plan Patient has diabetic neuropathy No Okhipo, Lorna, ENGINE TESTING SUPERVISOR Weekly blood pressure task Care Plan [...] documented as of this encounter Care Teams Librarian Specialist Relationship Specialty Start Date End Date Fiorella Calvo ANP 230 [place] [address] PCP - General Family Medicine 11/04/20 Kolby Morin PharmD 230 [place] [address] Pharmacist Internal Medicine 08/19/23 documented as of this encounter
--- OUTSIDE RECORDS SUMMARY | 2025-02-08 16:14 | XMS_ITS | Encounter Summary ---
Author Organization [employer] Address 75 [facility] 7t [place] [address] Care Team Providers Care Dry Cleaning Manager Name Role Phone Fiorella Calvo Primary Care Provider [phone] Kolby Morin PharmD Unavailable [phone] Reason for Visit * Reason Comments Med Refill Encounter Details Date Type Department Care Team (Late st Contact Info) Description 10/16/2024 Refill [facility] 230 [place], [place] [phone] Name, MD Jacob 230 [place] [address] Chronic pain of left knee; Osteoarthritis of [...] EST Medication Management [facility] [address] [place] [address] Rachael Lambert, PharmD 230 [place] [address] 03/08/2025 2:00 PM EST Office Visit [facility] [address] [place] [address] Fiorella Calvo ANP 230 [place] [address] documented as of this encounter Goals Goal [...] documented as of this encounter Care Teams Dry Cleaning Manager Relationship Specialty Start Date End Date Fiorella Calvo ANP 230 [place] [address] PCP - General Family Medicine 11/04/20 Kolby Morin, KariD 230 [place] [address] Pharmacist Internal Medicine 08/19/23 documented as of this encounter
--- OUTSIDE RECORDS SUMMARY | 2025-02-08 16:14 | XMS_ITS | Encounter Summary ---
Author Organization [employer] Address 75 [facility] 7t [place] [address] Care Team Providers Care Tiller Man Name Role Phone Fiorella Calvo Primary Care Provider [phone] Kolby Morin PharmD Unavailable [phone] Reason for Visit * Reason Onset Date Comments Med Refill 11/13/2024 Encounter Details Date Type Department Care Team (Late st Contact Info) Description 11/13/2024 Refill [facility] 230 [place], [place] [phone] Fiorella Calvo ANP 230 [place] [address] Type 2 diabetes mellitus with obesity ([facility]) ([facility]) Social History Tobacco Use Types Packs/Day Years [...] Description 02/15/2025 11:30 AM EST Medication Management [facility] [address] [place] [address] Rachael Lambert PharmD [address] [place] [address] 03/08/2025 2:00 PM EST Office Visit [facility] [address] [place] [address] Fiorella Calvo, ANP [address] [place] [address] documented as of this encounter Goals Goal [...] documented as of this encounter Care Teams Tiller Man Relationship Specialty Start Date End Date Fiorella Calvo ANP 230 [place] [address] PCP - General Family Medicine 11/04/20 Kolby Morin PharmD 230 [place] [address] Pharmacist Internal Medicine 08/19/23 documented as of this encounter
--- OUTSIDE RECORDS SUMMARY | 2025-02-08 16:14 | XMS_ITS | Encounter Summary ---
Author Organization [employer] Address 75 [facility] 7t [place] [address] Care Team Providers Care Ranch Supervisor Name Role Phone Fiorella Calvo Primary Care Provider [phone] Kolby Morin PharmD Unavailable [phone] Reason for Visit * Reason Comments Med Refill Encounter Details Date Type Department Care Team (Late st Contact Info) Description 10/26/2024 Refill [facility] 230 [place], [place] [phone] Name, MD Jacob 230 [place] [address] Chronic pain of left knee; Osteoarthritis of [...] 02/15/2025 11:30 AM EST Medication Management [facility] [address] [place] [address] Rachael Lambert, KariD [address] [place] [address] 03/08/2025 2:00 PM EST Office Visit [facility] [address] [place] [address] Fiorella Calvo ANP 230 [place] [address] documented as of this encounter Goals Goal [...] documented as of this encounter Care Teams Ranch Supervisor Relationship Specialty Start Date End Date Fiorella Calvo ANP 230 [place] [address] PCP - General Family Medicine 11/04/20 Kolby Morin PharmD 230 [place] [address] Pharmacist Internal Medicine 08/19/23 documented as of this encounter
--- OUTSIDE RECORDS SUMMARY | 2025-02-08 16:14 | XMS_ITS | Encounter Summary ---
Author Organization [employer] Address [address] [facility] 7 [place] [address] Care Team Providers Care Disaster Recovery Coordinator Name Role Phone Fiorella Calvo Primary Care Provider [phone] Kolby Morin PharmD Unavailable [phone] Reason for Visit * Reason Onset Date Comments Med Refill 11/30/2024 Encounter Details Date Type Department Care Team (Late st Contact Info) Description 11/30/2024 Refill [facility] 230 [place], [place] [phone] Fiorella Calvo ANP 230 [place] [address] Type 2 diabetes mellitus with hyperlipidemia (CMS/HCC) ([facility]/HCC); Diabetic polyneuropathy associated with type 2 diabetes [...] Description 02/15/2025 11:30 AM EST Medication Management [facility] [address] [place] [address] Rachael Lambert PharmD 230 [place] [address] 03/08/2025 2:00 PM EST Office Visit [facility] [address] [place] [address] Fiorella Calvo ANP 230 [place] [address] documented as of this encounter Goals Goal [...] documented as of this encounter Care Teams Disaster Recovery Coordinator Relationship Specialty Start Date End Date Fiorella Calvo ANP 230 [place] [address] PCP - General Family Medicine 11/04/20 Kolby Morin PharmD 230 [place] [address] Pharmacist Internal Medicine 08/19/23 documented as of this encounter
--- OUTSIDE RECORDS SUMMARY | 2025-02-08 16:14 | XMS_ITS | Encounter Summary ---
Author Organization [employer] Address 75 [facility] 7t [place] [address] Care Team Providers Care Software Validation Engineer Name Role Phone Fiorella Calvo Primary Care Provider [phone] Kolby Morin PharmD Unavailable [phone] Reason for Visit * Reason Comments Med Refill Encounter Details Date Type Department Care Team (Late st Contact Info) Description 10/26/2024 Refill [facility] 230 [place], [place] [phone] Name, MD Jacob 230 [place] [address] Chronic pain of left knee; Osteoarthritis of [...] Description 02/15/2025 11:30 AM EST Medication Management [facility] [address] [place] [address] Rachael Lambert, KariD [address] [place] [address] 03/08/2025 2:00 PM EST Office Visit [facility] [address] [place] [address] Fiorella Calvo ANP 230 [place] [address] documented as of this encounter Goals Goal [...] documented as of this encounter Care Teams Software Validation Engineer Relationship Specialty Start Date End Date Fiorella Calvo ANP 230 [place] [address] PCP - General Family Medicine 11/04/20 Kolby Morin PharmD 230 [place] [address] Pharmacist Internal Medicine 08/19/23 documented as of this encounter
--- OUTSIDE RECORDS SUMMARY | 2025-02-08 16:14 | XMS_ITS | Encounter Summary ---
Author Organization [employer] Address 75 [facility] 7t [place] [address] Care Team Providers Care Painter Railroad Car Name Role Phone Fiorella Calvo Primary Care Provider [phone] Kolby Morin PharmD Unavailable [phone] Encounter Details Date Type Department Care Team ([facility] st Contact Info) Description 02/05/2025 Orders Only [facility] 230 [place], [place] [phone] Fiorella Calvo ANP 230 [place] [address] Chronic pain of left knee; Osteoarthritis of [...] 11:30 AM EST Medication Management [facility] [address] [place] [address] Rachael Lambert, PharmD 230 [place] [address] 03/08/2025 2:00 PM EST Office Visit [facility] [address] [place] [address] Fiorella Calvo ANP 230 [place] [address] documented as of this encounter Goals Goal [...] Weekly blood pressure task No Adilia Ragsdaleupe, RING SPINNER Weekly blood pressure task Care Plan Weekly blood pressure task No Okclementineo Lorna, RING SPINNER Weekly blood pressure task Care Plan Weekly blood pressure task No Okhipo Lorna, RING SPINNER Patient has chronic kidney disease Care Plan Patient has chronic kidney disease No Okhipo, Lorna, RING SPINNER Patient has chronic kidney disease Care Plan Patient has chronic kidney disease No Okhipo, Lorna, RING SPINNER Patient has chronic kidney disease Care Plan Patient has chronic kidney disease No Okhipo, Lorna, RING SPINNER Patient has diabetic neuropathy Care Plan Patient has diabetic neuropathy No Okhipo, Lorna, RING SPINNER Patient has diabetic neuropathy Care Plan Patient has diabetic neuropathy No Okhipo, Lorna, RING SPINNER Patient has diabetic neuropathy Care Plan Patient has diabetic neuropathy No Lorna Ragsdale, RING SPINNER Weekly blood pressure task Care Plan Weekly [...] Plan Weekly blood pressure task No PachecoMarkga, ANHYDROUS AMMONIA PRODUCTION SUPERVISOR Weekly blood pressure task Care Plan Weekly blood pressure task No Mark Pachecoga, ANHYDROUS AMMONIA PRODUCTION SUPERVISOR Weekly blood pressure task Care Plan Weekly blood pressure task No PachecoMarkga, ANHYDROUS AMMONIA PRODUCTION SUPERVISOR Patient has chronic kidney disease Care Plan Patient has chronic kidney disease No Pacheco Yoselin, ANHYDROUS AMMONIA PRODUCTION SUPERVISOR Patient has chronic kidney disease Care Plan Patient has chronic kidney disease No PachecoMarkga, ANHYDROUS AMMONIA PRODUCTION SUPERVISOR Patient has chronic kidney disease Care Plan Patient has chronic kidney disease No PachecoMarkga, ANHYDROUS AMMONIA PRODUCTION SUPERVISOR Patient has diabetic neuropathy Care Plan Patient has diabetic neuropathy No Pacheco, Yoselin, ANHYDROUS AMMONIA PRODUCTION SUPERVISOR Patient has diabetic neuropathy Care Plan Patient has diabetic neuropathy No Pacheco, Yoselin, ANHYDROUS AMMONIA PRODUCTION SUPERVISOR Patient has diabetic neuropathy Care Plan Patient has diabetic neuropathy No Pacheco, Yoselin, ANHYDROUS AMMONIA PRODUCTION SUPERVISOR Weekly blood pressure task Care Plan [...] documented as of this encounter Care Teams Painter Railroad Car Relationship Specialty Start Date End Date Fiorella Calvo ANP [address] [place] [address] PCP - General Family Medicine 11/04/20 Kolby Morin, PharmD [address] [place] [address] Pharmacist Internal Medicine 08/19/23 documented as of this encounter
--- OUTSIDE RECORDS SUMMARY | 2025-02-08 16:14 | XMS_ITS | Encounter Summary ---
Author Organization [employer] Address 75 [facility] 7t [place] [address] Care Team Providers Care Continuum Of Care Manager Name Role Phone Fiorella Calvo Primary Care Provider [phone] Kolby Morin PharmD Unavailable [phone] Reason for Visit * Reason Onset Date Comments Med Refill 11/17/2024 Encounter Details Date Type Department Care Team (Late st Contact Info) Description 11/17/2024 Refill [facility] 230 [place], [place] [phone] Fiorella Calvo ANP 230 [place] [address] Type 2 diabetes mellitus with obesity ([facility]) ([facility]) Social History Tobacco Use Types Packs/Day Years [...] 02/15/2025 11:30 AM EST Medication Management [facility] [address] [place] [address] Rachael Lambert PharmD [address] [place] [address] 03/08/2025 2:00 PM EST Office Visit [facility] [address] [place] [address] Fiorella Calvo, ANP [address] [place] [address] documented as of this encounter Goals Goal [...] documented as of this encounter Care Teams Continuum Of Care Manager Relationship Specialty Start Date End Date Fiorella Calvo ANP 230 [place] [address] PCP - General Family Medicine 11/04/20 Kolby Morin PharmD 230 [place] [address] Pharmacist Internal Medicine 08/19/23 documented as of this encounter
--- OUTSIDE RECORDS SUMMARY | 2025-02-08 16:14 | XMS_ITS | Encounter Summary ---
Author Organization [employer] [facility] Address [address] [place] [address] 7t [place] [address] Care Team Providers Care Wax Ball Molder Name Role Phone Fiorella Calvo Primary Care Provider Kolby Morin PharmD Unavailable [phone] Reason for Visit * Reason Onset Date Comments Med Refill 05/15/2023 Encounter Details Date Type Department Care Team (Late st Contact Info) Description 05/15/2023 Refill [facility] [address] [place] [address] Fiorella Calvo ANP [address] [place] [address] Allergic rhinitis, unspecified seasonality, unspecified trigger Social [...] EST Medication Management [facility] [address] [place], [place] [phone] Rachael Lambert, PharmD [address] [place] [address] 03/08/2025 2:00 PM EST Office Visit [facility] [address] [place] [address] Fiorella Calvo ANP [address] [place] [address] documented as of this encounter Visit Diagnoses Diagnosis Allergic rhinitis, unspecified seasonality, unspecified trigger documented in this encounter Care Teams Wax Ball Molder Relationship Specialty Start Date End Date Fiorella Calvo ANP [address] [place] [address] PCP - General Family Medicine 11/04/20 Kolby Morin, Love [address] [place] [address] Pharmacist Internal Medicine 08/19/23 documented as of this encounter
--- OUTSIDE RECORDS SUMMARY | 2025-02-08 16:14 | XMS_ITS | Encounter Summary ---
Author Organization [employer] Address [address] [facility] 7t [place] [address] Care Team Providers Care Customer Account Manager Name Role Phone Fiorella Calvo Primary Care Provider [phone] Kolby Morin PharmD Unavailable [phone] Reason for Visit * Reason Onset Date Comments Med Refill 11/06/2024 Encounter Details Date Type Department Care Team (Late st Contact Info) Description 11/06/2024 Telephone [facility] [address] [place], [place] [phone] Fiorella Calvo ANP [address] [place], [place] [phone] Med Refill Social History Tobacco Use Types [...] 50 MG tablet To be sent to: [facility]/pharmacy #[id number] - [place], [place] - [address] [facility] documented in this encounter Plan of Treatment Upcoming Encounters Date Type Department Care Team (Late st Contact Info) Description 02/15/2025 11:30 AM EST Medication Management [facility] [address] [place] [address] Rachael Lambert, KariD [address] [place] [address] 03/08/2025 2:00 PM EST Office Visit [facility] [address] [place] [address] Fiorella Calvo ANP [address] [place] [address] documented as of this encounter Goals Goal Patient Goal Type Associated Problems Recent Progress Patient-Stated? Author Quit using tobacco (cigarettes, smokeless, etc) Tobacco Use No Kolby Morin, KariD documented as of this encounter Visit Diagnoses Not on filedocumented in this encounter Additional Health Concerns Assessment Noted Time PHQ-9 Depression Total Score: 26 025 11:43 AM EST documented as of this encounter Care Teams Customer Account Manager Relationship Specialty Start Date End Date Fiorella Calvo ANP [address] [place] [address] PCP - General Family Medicine 11/04/20 Kolby Morin, PharmD [address] [place] [address] Pharmacist Internal Medicine 08/19/23 documented as of this encounter
--- OUTSIDE RECORDS SUMMARY | 2025-02-08 16:14 | XMS_ITS | Encounter Summary ---
Author Organization [employer] [facility] Address [address] [place] [address] 7 [place] [address] Care Team Providers Care News Intern Name Role Phone Fiorella Calvo Primary Care Provider [phone] Kolby Morin PharmD Unavailable [phone] Reason for Visit * Reason Comments Med Refill Encounter Details Date Type Department Care Team (Late st Contact Info) Description 05/21/2023 Refill [facility] 230 [place] [address] Fiorella Calvo ANP 230 [place] [address] Social History Tobacco Use Types Packs/Day Years [...] Description 02/15/2025 11:30 AM EST Medication Management [facility] [address] [place] [address] Rachael Lambert, PharmD 230 [place] [address] 03/08/2025 2:00 PM EST Office Visit [facility] [address] [place] [address] Fiorella Calvo ANP 230 [place] [address] documented as of this encounter Visit Diagnoses Not on filedocumented in this encounter Care Teams News Intern Relationship Specialty Start Date End Date Fiorella Calvo ANP 230 [place] [address] PCP - General Family Medicine 11/04/20 Kolby Morin, Love 230 [place] [address] Pharmacist Internal Medicine 08/19/23 documented as of this encounter
--- OUTSIDE RECORDS SUMMARY | 2025-02-08 16:14 | XMS_ITS | Encounter Summary ---
Author Organization [employer] Address [address] [facility] 7t [place] [address] Care Team Providers Care Dev Ops Engineer Name Role Phone Fiorella Calvo Primary Care Provider [phone] Kolby Morin PharmD Unavailable [phone] Encounter Details Date Type Department Care Team (Latest Contact Info) Description 01/29/2025 Results Follow-Up [facility] [address] [place] [address] [phone] Fiorella Calvo ANP 230 [place] [address] Vitamin B12/Folate, Serum Panel, Comprehensive metabolic panel [...] the past 12 months, has t he [employer], gas, oil or water company threatened to [...] AM EST Medication Management [facility] [address] [place] [address] Rachael Lambert, Love [address] [place] [address] 03/08/2025 2:00 PM EST Office Visit [facility] [address] [place] [address] Fiorella Calvo ANP [address] [place] [address] documented as of this encounter Goals Goal [...] Care Plan Patient has diabetic neuropathy No Vikik Hilliard RN Weekly blood pressure task Care [...] documented as of this encounter Care Teams Dev Ops Engineer Relationship Specialty Start Date End Date Fiorella Calvo ANP 230 [place] [address] PCP - General Family Medicine 11/04/20 Kolby Morin PharmD 230 [place] [address] Pharmacist Internal Medicine 08/19/23 documented as of this encounter
--- OUTSIDE RECORDS SUMMARY | 2025-02-08 16:14 | XMS_ITS | Encounter Summary ---
Author Organization [employer] Address 75 [facility] 7t [place] [address] Care Team Providers Care Street Engineer Name Role Phone Fiorella Calvo Primary Care Provider [phone] Kolby Morin PharmD Unavailable [phone] Reason for Visit * Reason Comments Med Refill Encounter Details Date Type Department Care Team (Late st Contact Info) Description 11/06/2024 Refill [facility] 230 [place], [place] [phone] Fiorella Calvo ANP 230 [place] [address] Chronic pain of left knee; Osteoarthritis of [...] [facility] [address] [place] [address] Rachael Lambert, KariD [address] [place] [address] 03/08/2025 2:00 PM EST Office Visit [facility] [address] [place] [address] Fiorella Calvo ANP [address] [place] [address] documented as of this encounter Goals Goal [...] as of this encounter Care Teams Street Engineer Relationship Specialty Start Date End Date Fiorella Calvo ANP [address] [place] [address] PCP - General Family Medicine 11/04/20 Kolby Morin, Love [address] [place] [address] Pharmacist Internal Medicine 08/19/23 documented as of this encounter
--- OUTSIDE RECORDS SUMMARY | 2025-02-08 16:14 | XMS_ITS | Encounter Summary ---
Author Organization [employer] Address [address] [facility] 7t [place] [address] Care Team Providers Care Director Compliance Name Role Phone Fiorella Calvo Primary Care Provider [phone] Kolby Morin PharmD Unavailable [phone] Reason for Visit * Reason Comments Med Refill Encounter Details Date Type Department Care Team (Late st Contact Info) Description 02/01/2025 Refill [facility] 230 [place], [place] [phone] Fiorella Calvo ANP [address] [place] [address] Chronic pain of left knee; Osteoarthritis of [...] 02/15/2025 11:30 AM EST Medication Management [facility] [address] [place] [address] Rachael Lambert, KariD [address] [place] [address] 03/08/2025 2:00 PM EST Office Visit [facility] [address] [place] [address] Fiorella Calvo, RIANA [address] [place] [address] documented as of this encounter Goals Goal [...] Weekly blood pressure task No Lorna Ragsdale, GROCERY STORE MANAGER Weekly blood pressure task Care Plan Weekly blood pressure task No Adilia Ragsdaleupe, GROCERY STORE MANAGER Weekly blood pressure task Care Plan Weekly blood pressure task No Adilia Ragsdaleupe, GROCERY STORE MANAGER Patient has chronic kidney disease Care Plan Patient has chronic kidney disease No Adilia Ragsdaleupe, GROCERY STORE MANAGER Patient has chronic kidney disease Care Plan Patient has chronic kidney disease No Okclementineo Lorna, GROCERY STORE MANAGER Patient has chronic kidney disease Care Plan Patient has chronic kidney disease No Okclementineo Lorna, GROCERY STORE MANAGER Patient has diabetic neuropathy Care Plan Patient has diabetic neuropathy No Okclementineo Lorna, GROCERY STORE MANAGER Patient has diabetic neuropathy Care Plan Patient has diabetic neuropathy No Okclementineo Lorna, GROCERY STORE MANAGER Patient has diabetic neuropathy Care Plan Patient has diabetic neuropathy No Okclmeentineo Lorna, GROCERY STORE MANAGER Weekly blood pressure task Care Plan [...] as of this encounter Care Teams Director Compliance Relationship Specialty Start Date End Date Fiorella aClvo ANP [address] [place] [address] PCP - General Family Medicine 11/04/20 Kolby Morin, Love [address] [place] [address] Pharmacist Internal Medicine 08/19/23 documented as of this encounter
--- OUTSIDE RECORDS SUMMARY | 2025-02-08 16:14 | XMS_ITS | Encounter Summary ---
Author Organization [employer] Address 75 [facility] 7 [place] [address] Care Team Providers Care Numberer And Wirer Name Role Phone Fiorella Calvo Primary Care Provider Kolby Morin PharmD Unavailable [phone] Reason for Visit * Reason Onset Date Comments Med Refill 11/25/2024 Encounter Details Date Type Department Care Team (Late st Contact Info) Description 11/25/2024 Refill [facility] 230 [place], [place] [phone] Fiorella Calvo ANP 230 [place] [address] Type 2 diabetes mellitus with hyperlipidemia (CMS/HCC) ([facility]/HCC); Diabetic polyneuropathy associated with type 2 diabetes [...] Description 02/15/2025 11:30 AM EST Medication Management [facility] [address] [place] [address] Rachael Lambert PharmD [address] [place] [address] 03/08/2025 2:00 PM EST Office Visit [facility] [address] [place] [address] Fiorella Calvo ANP [address] [place] [address] documented as of this encounter Goals Goal [...] documented as of this encounter Care Teams Numberer And Wirer Relationship Specialty Start Date End Date Fiorella Calvo ANP [address] [place] [address] PCP - General Family Medicine 11/04/20 Kolby Morin PharmD 230 [place] [address] Pharmacist Internal Medicine 08/19/23 documented as of this encounter
--- OUTSIDE RECORDS SUMMARY | 2025-02-08 16:14 | XMS_ITS | Encounter Summary ---
Author Organization [employer] [facility] Address [address] [place] [address] 7t [place] [address] Care Team Providers Care Mechanical Tech Name Role Phone Fiorella Calvo Primary Care Provider [phone] Kolby Morin PharmD Unavailable [phone] Reason for Visit * Reason Onset Date Comments Med Refill 05/17/2023 Encounter Details Date Type Department Care Team (Late st Contact Info) Description 05/17/2023 Refill [facility] [address] [place] [address] Fiorella Calvo ANP [address] [place] [address] Diabetes mellitus type 2 in obese ([facility]) Social History Tobacco Use Types Packs/Day [...] Description 02/15/2025 11:30 AM EST Medication Management [facility] [address] [place], [place] [phone] Rachael Lambert, PharmD 230 [place] [address] 03/08/2025 2:00 PM EST Office Visit [facility] [address] [place], [place] [phone] Fiorella Calvo ANP [address] [place] [address] documented as of this encounter Visit Diagnoses Diagnosis Diabetes mellitus type 2 in obese Type II or unspecified type diabetes mellitus without mention of complication, not stated as uncontrolled documented in this encounter Care Teams Mechanical Tech Relationship Specialty Start Date End Date Fiorella Calvo ANP [address] [place] [address] [phone] PCP - General Family Medicine 11/04/20 Kolby Morin, Love [address] [place] [address] Pharmacist Internal Medicine 08/19/23 documented as of this encounter
--- OUTSIDE RECORDS SUMMARY | 2025-02-08 16:14 | XMS_ITS | Encounter Summary ---
Author Organization [employer] Address [address] [facility] 7t [place] [address] Care Team Providers Care Farm Products Shipper Name Role Phone Fiorella Calvo Primary Care Provider [phone] Kolby Morin PharmD Unavailable [phone] Encounter Details Date Type Department Care Team ([facility] st Contact Info) Description 02/03/2025 Telephone [facility] 230 [place], [place] [phone] Holland Burks MD 230 [place], [place] [phone] Social History Tobacco Use Types Packs/Day Years [...] EST Medication Management [facility] [address] [place] [address] Rachael Lambert PharmD [address] [place] [address] 03/08/2025 2:00 PM EST Office Visit [facility] [address] [place] [address] Fiorella Calvo ANP [address] [place] [address] documented as of this encounter Goals Goal [...] Plan Patient has chronic kidney disease No Rodriuge Acevedo MA Patient has chronic kidney disease [...] Weekly blood pressure task No Adilia Ragsdaleupe, PHARMACY TECHNICIAN ASSISTANT Weekly blood pressure task Care Plan Weekly blood pressure task No Okclementineo Lorna, PHARMACY TECHNICIAN ASSISTANT Weekly blood pressure task Care Plan Weekly blood pressure task No Okhipo Lorna, PHARMACY TECHNICIAN ASSISTANT Patient has chronic kidney disease Care Plan Patient has chronic kidney disease No Okhipo, Lorna, PHARMACY TECHNICIAN ASSISTANT Patient has chronic kidney disease Care Plan Patient has chronic kidney disease No Okhipo, Lorna, PHARMACY TECHNICIAN ASSISTANT Patient has chronic kidney disease Care Plan Patient has chronic kidney disease No Okhipo, Lorna, PHARMACY TECHNICIAN ASSISTANT Patient has diabetic neuropathy Care Plan Patient has diabetic neuropathy No Okhipo, Lorna, PHARMACY TECHNICIAN ASSISTANT Patient has diabetic neuropathy Care Plan Patient has diabetic neuropathy No Okhipo, Lorna, PHARMACY TECHNICIAN ASSISTANT Patient has diabetic neuropathy Care Plan Patient has diabetic neuropathy No Okhipo, Lorna, PHARMACY TECHNICIAN ASSISTANT Weekly blood pressure task Care Plan Weekly [...] has diabetic neuropathy No Camila Turk PharmD Patient has diabetic neuropathy Care Plan Patient has diabetic neuropathy No Camila Turk PharmD Weekly blood pressure task Care Plan Weekly blood pressure task No Holland Burks MD Weekly blood pressure task Care Plan Weekly blood pressure task Holland Cassidy MD Weekly blood pressure task Care Plan [...] documented as of this encounter Care Teams Farm Products Shipper Relationship Specialty Start Date End Date Fiorella Calvo ANP [address] [place] [address] PCP - General Family Medicine 11/04/20 Kolby Morin, Love [address] [place] [address] Pharmacist Internal Medicine 08/19/23 documented as of this encounter
== END 2025-02-08 12:09 | disposition home or self-care (01) ==
LOC: HO.XRAY 12:08
PROVIDERS: Absent Provider Optometrist; PCP Nurse Practitioner Primary Care; Visit Provider Nurse Practitioner Family
DX: R05.9 Cough, unspecified (principal)
CPT/HCPCS: 71046

== ENCOUNTER → 2025-02-08 12:14 | Outpatient (BNV) | payer MEDICAID, SELFPAY | PROVIDERS: Absent Provider Optometrist; PCP Nurse Practitioner Primary Care; Visit Provider Radiology Diagnostic Radiology | DX: R05.9 Cough, unspecified (principal) | CPT/HCPCS: 71046 ==

== ENCOUNTER 2025-02-14 10:13 | Outpatient (REF) | payer MEDICAID, SELFPAY ==
--- NOTE | ~2025-02-14 | MR_ITS ---
CLINICAL HISTORY: Homonymous mellitus, left sided occipital lobe stroke. Examination: MRI brain without IV contrast Comparison: None Findings: DWI/ADC: No restriction. T2*GRE or SWI: No susceptibility effect to suggest blood products. T2 FLAIR: Faint subcortical white matter hyperintense foci/lesions. These lesions are nonspecific in appearance and similar findings can be seen in the setting of chronic small vessel ischemic disease, migraine headaches change, gliosis from prior infectious/inflammatory process, vasculitides or demyelination. Brain parenchyma demonstrates age-appropriate volume and normal configuration. Ventricles demonstrate a nonobstructive pattern. Basilar cisterns intact. No extra-axial space occupying lesions. No intracranial hemorrhage, midline shift or mass-effect. Cortes-white matter junction preserved. The brainstem and cerebellar hemispheres are unremarkable. No tonsillar ectopia. Craniocervical junction and cervical medullary junction intact. The expected venous and arterial flow voids are present. The orbital contents are unremarkable. Left maxillary sinusitis and ethmoid sinusitis obstructive type. No mastoid effusions are demonstrated. Impression: 1. No true restriction to suggest acute infarct. 2. No recent or remote hemorrhage space-occupying lesion midline shift or mass effect. 3. Minimal punctate subcortical white matter foci are nonspecific This document has been electronically signed by: Woody Stapleton MD on 02/14/2025 13:04:57
--- OUTSIDE RECORDS SUMMARY | 2025-02-14 10:19 | XMS_ITS | Encounter Summary ---
Author Organization [employer] Address [address] [facility] 7 [place] [address] Care Team Providers Care Pc Analyst Name Role Phone Fiorella Calvo Primary Care Provider [phone] Kolby Morin PharmD Unavailable [phone] Reason for Visit * Reason Onset Date Comments Med Refill 06/28/2024 Encounter Details Date Type Department Care Team (Late st Contact Info) Description 06/28/2024 Refill [facility] 230 [place], [place] [phone] Fiorella Calvo ANP [address] [place] [address] Type 2 diabetes mellitus with hyperlipidemia (CMS/HCC) ([facility]/HCC); Diabetic polyneuropathy associated with type 2 [...] Contact Info) Description 02/15/2025 11:30 AM EST Telemedicine [facility] MEDICINE [address] [place] [address] Rachael Lambert, KariD [address] [place] [address] 03/08/2025 2:00 PM EST Office Visit [facility] [address] [place] [address] Fiorella Calvo ANP [address] [place] [address] documented as of this encounter Goals Goal [...] documented as of this encounter Care Teams Pc Analyst Relationship Specialty Start Date End Date Fiorella Calvo ANP [address] [place] [address] PCP - General Family Medicine 11/04/20 Kolby Morin PharmD [address] [place] [address] Pharmacist Internal Medicine 08/19/23 documented as of this encounter
--- OUTSIDE RECORDS SUMMARY | 2025-02-14 10:19 | XMS_ITS | Clinical Summary ---
Author Organization [facility] Address [address] [place] [address] Phone Care Team Providers Care Freight Elevator Erector Name Role Phone Lorna Ragsdale INTERNAL CONTROLS ANALYST Primary Care Provider [phone] Encounters Date Type Department Care Team Description 01/20/2025 2:57 PM EST - 01/20/2025 11:59 PM EST Hospital Encounter [facility] PET Scan [address] [place] [address] Other nonspecific abnormal finding of [...] Signed Date: 01/25/2025 05:34 ET Workstation ID: [id number] Transcribed By: Self Edit Transcribed Date: 01/25/2025 [...] abdomen and pelvis dated December 2024 from [facility]. FINDINGS: HEAD AND NECK: Nonspecific focal [...] chest abdomen andpelvis dated December 2024 from [facility]. FINDINGS: HEAD AND NECK: Nonspecific focal [...] Signed Date: 01/25/2025 05:34 ET Workstation ID: [id number] Transcribed By: Self Edit Transcribed Date: 01/25/2025 05:09 ET Fiorella Calvo NP IMG NM PROCEDURES Final Result from Last 3 Months Insurance MEDICAID - [place] Care Teams Freight Elevator Erector Relationship Specialty Start Date End Date Lorna Ragsdale FNP [address] [place] [address] PCP - General Family Medicine 02/05/25
--- OUTSIDE RECORDS SUMMARY | 2025-02-14 10:19 | XMS_ITS | Encounter Summary ---
Author Organization [employer] Address [address] [facility] 7 [place] [address] Care Team Providers Care Bush Hog Operator Name Role Phone Fiorella Calvo Primary Care Provider [phone] Kolby Morin PharmD Unavailable [phone] Reason for Visit * Reason Onset Date Comments Med Refill 03/23/2024 Encounter Details Date Type Department Care Team (Late st Contact Info) Description 03/23/2024 Refill [facility] MED[facility]INE [address] [place], [place] [phone] Fiorella Calvo ANP [address] [place] [address] Type 2 diabetes mellitus with hyperlipidemia (CMS/HCC) [...] Info) Description 02/15/2025 11:30 AM EST Telemedicine [facility] [address] [place] [address] Rachael Lambert, KariD [address] [place] [address] 03/08/2025 2:00 PM EST Office Visit [facility] [address] [place] [address] Fiorella Calvo ANP [address] [place] [address] documented as of this encounter Goals Goal [...] documented as of this encounter Care Teams Bush Hog Operator Relationship Specialty Start Date End Date Fiorella Calvo ANP [address] [place] [address] PCP - General Family Medicine 11/04/20 Kolby Morin PharmD [address] [place] [address] Pharmacist Internal Medicine 08/19/23 documented as of this encounter
--- OUTSIDE RECORDS SUMMARY | 2025-02-14 10:19 | XMS_ITS | Encounter Summary ---
Author Organization [employer] [facility] Address [address] [facility] 7t [place] [address] Care Team Providers Care Birthing Nurse Name Role Phone Fiorella Calvo Primary Care Provider [phone] Kolby Morin PharmD Unavailable [phone] Encounter Details Date Type Department Care Team (Late st Contact Info) Description 11/05/2023 Orders Only [facility] MEDICINE [address] [place], [place] [phone] Fiorella Calvo ANP [address] [place] [address] Social History Tobacco Use Types Packs/Day Years [...] Info) Description 02/15/2025 11:30 AM EST Telemedicine [facility] MEDICINE [address] [place] [phone] Rachael Lambert PharmD [address] [place] [address] 03/08/2025 2:00 PM EST Office Visit [facility] MED[facility]INE [address] [place] [address] Fiorella Calvo ANP [address] [place] [address] documented as of this encounter Goals Goal Patient Goal Type Associated Problems Recent Progress Patient-Stated? Author Quit using tobacco (cigarettes, smokeless, etc) Tobacco Use No Kolby Morin, Love documented as of this encounter Visit Diagnoses Not on filedocumented in this encounter Additional Health Concerns Assessment Noted Time PHQ-9 Depression Total Score: 20 024 9:15 AM EDT documented as of this encounter Care Teams Birthing Nurse Relationship Specialty Start Date End Date Fiorella Calvo ANP [address] [place] [address] PCP - General Family Medicine 11/04/20 Kolby Morin, KariD [address] [place] [address] Pharmacist Internal Medicine 08/19/23 documented as of this encounter
--- OUTSIDE RECORDS SUMMARY | 2025-02-14 10:19 | XMS_ITS | Encounter Summary ---
Author Organization [facility] Address [address] [place] [address] [address] [place] [address] Care Team Providers Care Trial Paralegal Name Role Phone Fiorella Calvo Primary Care Provider [phone] Kolby Morin PharmD Unavailable [phone] Reason for Visit * Reason Onset Date Comments Returning call 10/28/2023 Encounter Details Date Type Department Care Team (Late st Contact Info) Description 10/28/2023 Telephone [facility]INE [address] [place], [place] [phone] Fiorella Calvo ANP [address] [place] [address] Returning call Social History Tobacco Use Types [...] at this time. LVM introducing herself from [facility] CM Department. Requested call back. Please contact pt at [phone]. (Bengali Speaker) documented in this encounter Plan of Treatment Upcoming Encounters Date Type Department Care Team (Late st Contact Info) Description 02/15/2025 11:30 AM EST Telemedicine [facility] MED[facility]INE [address] [place] [address] [phone] Rachael Lambert PharmD [address] [place] [phone] 03/08/2025 2:00 PM EST Office Visit [address] [phone] Fiorella Calvo ANP [address] [place] [phone] documented as of this encounter Goals Goal Patient Goal Type Associated Problems Recent Progress Patient-Stated? Author Quit using tobacco (cigarettes, smokeless, etc) Tobacco Use No Kolby Morin PharmD documented as of this encounter Visit Diagnoses Not on filedocumented in this encounter Additional Health Concerns Assessment Noted Time PHQ-9 Depression Total Score: 20 024 9:15 AM EDT documented as of this encounter Care Teams Trial Paralegal Relationship Specialty Start Date End Date Fiorella Calvo ANP [address] [place] [phone] PCP - General Family Medicine 11/04/20 Kolby Morin PharmD [address] [place] [address] [phone] Pharmacist Internal Medicine 08/19/23 documented as of this encounter
--- OUTSIDE RECORDS SUMMARY | 2025-02-14 10:19 | XMS_ITS | Encounter Summary ---
Author Organization [employer] Address [address] [facility] [address] [place] [address] Care Team Providers Care Airplane Electrical Repairer Name Role Phone Fiorella Calvo Primary Care Provider [phone] Kolby Morin PharmD Unavailable [phone] Reason for Visit * Reason Onset Date Comments Med Refill 02/03/2024 Encounter Details Date Type Department Care Team (Late st Contact Info) Description 02/03/2024 Refill [facility] [address] [place] [address] Fiorella Calvo ANP [address] [place] [address] Chronic left-sided low back pain with left-sided sciatica; Diabetic polyneuropathy associated with type 2 diabetes mellitus (CMS/HCC); Anxiety; Type 2 diabetes mellitus with hyperlipidemia (CMS/HCC) ([facility]/HCC) Social History Tobacco Use Types Packs/Day [...] Info) Description 02/15/2025 11:30 AM EST Telemedicine [facility] MEDICINE [address] [place] [phone] Rachael Lambert PharmD [address] [place] [address] 03/08/2025 2:00 PM EST Office Visit [facility] MED[facility]INE [address] [place] [phone] Fiorella Calvo ANP [address] [place] [phone] documented as of this encounter Goals Goal [...] documented as of this encounter Care Teams Airplane Electrical Repairer Relationship Specialty Start Date End Date Fiorella Calvo ANP [address] [place] [phone] PCP - General Family Medicine 11/04/20 Kolby Morin PharmD [address] [place] [phone] Pharmacist Internal Medicine 08/19/23 documented as of this encounter
--- OUTSIDE RECORDS SUMMARY | 2025-02-14 10:19 | XMS_ITS | Clinical Summary ---
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 [facility] Hemoglobin 13.3 12.0 - 16.0 g/dl [facility] Hematocrit 42.2 37.0 - 47.0 % [facility] Mean Corpuscular Volume 74.6(L) 80.0 - 98.0 fL [facility] Mean Corpuscular Hemoglobin 23.5(L) 27.0 - 33.0 pg [facility] Mean Corpuscular HGB Conc 31.5 31.0 - 35.0 g/dl [facility] Red Cell Distribution Width 18.6(H) 11.0 - 16.0 % [facility] Platelet Count 174 160 - 400 X10*3/uL [facility] Mean Platelet Volume 11.4 9.4 - 12.3 fL [facility] Neutrophils Percent Auto 62.3 45 - 73 % [facility] Imm Gran Pct Auto 0.4 0.0 - 0.4 % [facility] Lymphocytes Percent Auto 28.7 20 - 40 % [facility] Monocytes Percent Auto 5.3 2 - 11 % [facility] Eosinophils Percent Auto 2.1 0 - 4 % [facility] Basophils Percent Auto 1.2 0 - 2 % [facility] NRBC Pct Auto 0.0 0.0 - 0.2 /100WBC [facility] Neutrophils Absolute Auto 3.5 2.0 - 8.3 x10*3/uL [facility] Imm Gran Abs Auto 0.02 0.00 - 0.03 X10*3/uL [facility] Lymphocytes Absolute Auto 1.6 1.2 - 4.9 X10*3/uL [facility] Monocytes Absolute Auto 0.3 0.1 - 1.2 X10*3/uL [facility] Eosinophils Absolute Auto 0.1 0.0 - 0.4 X10*3/uL [facility] Basophils Absolute Auto 0.1 0.0 - 0.2 X10*3/uL [facility] NRBC Abs Auto 0.000 0.0 - 0.012 X10*3/uL [facility] Blood Venous blood specimen / Unknown 01/25/2025 11:06 AM EST 01/25/2025 1:22 PM EST us Evelia Godwin OD LAB BLOOD ORDERABLES Final Resu lt [facility] [address] [place] [phone] [phone] * Methylmalonic Acid (01/25/2025 11:06 AM EST) Methylmalonic Acid 131 55 - 335 nmol/L [facility] Comment: Serum methylmalonic acid (MMA) levels [...] outcomes,such as neural tube defects and intrauterine growthrestriction.[employer] utilized Multi-Modal Decomposition(MMD) analysis to establish first and second trimester-specific MMA reference intervals in , as givenbelow:MMA, First trimester (<13 wks gestation): 58-167 nmol/LMMA, Second trimester (13-23 wks gestation):63-241 nmol/LThis test was developed and its analytical performancecharacteristics have been determined by [employer]. It has not been cleared or approved by theFDA. This assay has been validated pursuant to the CLIAregulations and is used for clinical purposes.THIS TEST WAS PERFORMED AT:[employer] [place] [address]KLXRIYNGEOVANNY LOUISE MD,PHD Blood Venous blood specimen / Unknown 01/25/2025 11:06 AM EST 01/25/2025 1:22 PM EST us Evelia Godwin OD LAB BLOOD ORDERABLES Final Resu lt [facility] [address] [place] [phone] * Partial Thromboplastin Time, Activated (APTT) (01/25/2025 11:06 AM EST) Partial Thromboplastin Time 28.5 26.7 - 34.1 SEC [facility] Blood Venous blood specimen / Unknown 01/25/2025 11:06 AM EST 01/25/2025 1:22 PM EST Lolis Adam ANP LAB BLOOD ORDERABLES Final Resul t Performing Organization Address [facility] Co de Phone Number [facility] [address] [place] [phone] * Prothrombin Time-INR (01/25/2025 11:06 AM EST) Prothrombin Time 12.6 11.2 - 13.5 SEC [facility] INTERNATIONAL NORM RATIO 1.0 0.9 - 1.1 [facility] Comment:INTERNATIONAL NORMAL IZED RATIO (INR) REFERENCE [...] EST 01/25/2025 1:[address] [facility] BLOOD ORDERABLES Final Resul t Performing Organization Address [facility] de Phone Number [facility] [address] [place] [address] [phone] * (ABNORMAL) Hemoglobin A1c (01/25/2025 11:06 AM EST) Hemoglobin A1c 13.1(H) <6.0 % [facility] Comment:Hemoglobin A1C Refer ence Range Adults: 4.8 - 6.0 % Non diabetic: < 6.0 % Goal: < 7.0 %Additional Action Suggested: > 8.0 %Note: Hemoglobin A1c results are invalid for patients with abnormal amounts of HbF. Blood transfusions may impact the HbA1c concentration in the patient sample. Estimated Average Glucose 329 mg/dL [facility] Comment:eAG = Estimated ave rage glucose which is %A1C expressed asaverage glucose, using the formula of the R4M-AxwcnguGnqrfuz Glucose study (ADAG), Diabetes Care, Vol.31,#8,Oct. 2007 01/25/2025 11:0 6 AM EST 01/25/2025 1:22 PM EST us Jyoti Melendez NP LAB BLOOD ORDERABLES Final Resul t [facility] [address] [place] [phone] * (ABNORMAL) Comprehensive metabolic panel (01/25/2025 11:06 AM EST) Sodium 136 135 - 145 mmol/L [facility] Potassium 4.1 3.3 - 5.1 mmol/L [facility] Chloride 104 96 - 108 mmol/L [facility] Carbon Dioxide 25 22 - 29 mmol/L [facility] Anion Gap 11(L) 12 - 20 [facility] Urea Nitrogen (BUN) 6(L) 9 - 16 mg/dL [facility] Creatinine, Serum 0.55 0.5 - 1.4 mg/dL [facility] Estimated Glomerular Filt Rate >60 [facility] Comment:Chronic Kidney Disea se: Estimated GFR < 60 mL/min/1.53e0Dqgewz Kidney Disease: Estimated GFR < 15 mL/min/1.73m2 Glucose 255(H) 60 - 115 mg/dL [facility] Calcium 9.2 8.4 - 10.2 mg/dL [facility] Bilirubin, Total 0.3 0.0 - 1.0 mg/dL [facility] Aspartate Amino Transferase 17 5 - 31 U/L [facility] Alanine Aminotransferase 15 0 - 31 U/L [facility] Total Protein 7.4 6.5 - 8.0 g/dL [facility] Albumin Level 4.3 3.5 - 5.0 g/dL [facility] Alkaline Phosphatase 118(H) 39 - 117 U/L [facility] Blood Venous blood specimen / Unknown 01/25/2025 11:06 AM EST 01/25/2025 1:22 PM EST us Evelia Godwin OD LAB BLOOD ORDERABLES Final Resu lt Performing Organization Address [facility] Co de Phone Number [facility] [address] [place] [address] [phone] * (ABNORMAL) Basic Metabolic Panel (01/25/2025 11:06 AM EST) Sodium 136 135 - 145 mmol/L [facility] Potassium 4.1 3.3 - 5.1 mmol/L [facility] Chloride 104 96 - 108 mmol/L [facility] Carbon Dioxide 24 22 - 29 mmol/L [facility] Anion Gap 12 12 - 20 [facility] Urea Nitrogen (BUN) 6(L) 9 - 16 mg/dL [facility] Creatinine, Serum 0.55 0.5 - 1.4 mg/dL [facility] Estimated Glomerular Filt Rate >60 [facility] Comment:Chronic Kidney Disea se: Estimated GFR < 60 mL/min/1.13e5Icwpvf Kidney Disease: Estimated GFR < 15 mL/min/1.73m2 Glucose 254(H) 60 - 115 mg/dL [facility] Calcium 9.2 8.4 - 10.2 mg/dL [facility] 01/25/2025 11:0 6 AM EST 01/25/2025 1:22 PM EST us Jyoti Melendez WHEELMAN LAB BLOOD ORDERABLES Final Resul t Performing Organization Address [facility] Co de Phone Number [facility] [address] [place] [address] [phone] * PET/CT Bone Skull Base to [...] Bacterial Vaginosis Panel (01/12/2025 2:41 PM EDT) Pathologist [facility] TRICHOMONAS VAGINALIS DETECTION BY PCR NOT DETECTED Not Detect [facility] BACTERIAL VAGINOSIS DETECTION BY PCR NEGATIVE Negative [facility] Comment:The BV organism targ [...] GROUP DETECTION BY PCR DETECTED(A) Not Detect [facility] Chichi glab krusei PCR NOT DETECTED Not Detect [facility] Swab Vaginal structure / Unknown 01/12/2025 2:41 PM EDT 01/12/2025 6:56 PM EDT us Lolis [facility] MICROBIOLOGY - GENERAL ORDER BAUTISTA Final Result [facility] [address] [place] [address] [phone] * (ABNORMAL) POCT Hgb A1c (01/12/2025 1:52 PM EDT) Hemoglobin A1C 14.8(A) 4.0 - 5.7 % QC Media Lot # [id number] Lot# Expiration Date [id number] Blood 01/12/2025 1:52 PM EDT Lolis [facility] POINT OF CARE TEST ENTER/EDIT OR DERABLES [...] Refer for neuroimaging and neurology consult. Result [facility] Evelia Godwin OD OPHTH VISUAL FIELD Final [...] PM EDT Narrative 12/16/2024 6:15 PM EDT [place] [address] [address] Scan Report Signed with Addenda Patient: Teena Garza MR#: [id number] : 1980 Acct:[id number] Age/Sex: 44 / F ADM Date: 12/16/24 Loc: .ED Attending Dr: Ordering Physician: Aaron Calderón MD Date of Service: 12/16/24 Procedure(s): CT abdomen pelvis w IV con Accession Number(s): [id number] cc: Aaron Calderón MD; LOLIS ADAM NP Report Number: [id number]: Total DLP = 0.00 mGy-cm Reason for [...] in OV> 12/16/241814 DD/ 12 TD/TT: 12/16/241812 Longwall Foreman: Procedure Note Donotuseinterpreter, Image - 12/16/[address] [place] [address] [address] Scan Report Signed with Addenda Patient: Teena Garza MMR#: [id number] : 1980Acct:[id number] Age/Sex: 44 / FADM Date: 12/16/24 Loc: HO.ED Attending Dr: Ordering Physician: Aaron Calderón MD Date of Service: 12/16/24 Procedure(s): CT abdomen pelvis w IV con Accession Number(s): [id number] cc: Aaron Calderón MD; LOLIS ADAM NP Report Number: [id number]: Total DLP = 0.00 mGy-cm Reason for [...] in OV> 12/16/241814 DD/ 12 TD/TT: 12/16/241812 Longwall Foreman: [facility] External Provider IMG CT PROCEDURES Edited Result - Final * CTA Chest PE Protocal (12/16/2024 6:09 PM EDT) Anatomical Region Laterality Modality Body, Chest Computed Tomogra phy 12/16/2024 6:09 PM EDT Narrative 12/16/2024 6:11 PM EDT [address] [address] [address] Scan Report Signed Patient: Teena Garza MR#: [id number] : 1980 Acct:[id number] Age/Sex: 44 / F ADM Date: 12/16/24 Loc: HO.ED Attending Dr: Ordering Physician: Aaron Calderón MD Date of Service: 12/16/24 Procedure(s): CT angio chest PE protocol Accession Number(s): [id number] cc: Aaron Calderón MD; LOLIS ADAM NP Report Number: [id number]: Total DLP = 0.00 mGy-cm Reason for [...] in OV> 12/16/241810 DD/ 08 TD/TT: 12/16/241808 Longwall Foreman: Procedure Note Donotuseinterpreter, Image - 12/16/[address] [place] [address] [address] Scan Report Signed Patient: Teena Garza [facility]#: [id number] : 1980Acct:[id number] Age/Sex: 44 / FADM Date: 12/16/24 Loc: .ED Attending Dr: Ordering Physician: Aaron Calderón MD Date of Service: 12/16/24 Procedure(s): CT angio chest PE protocol Accession Number(s): [id number] cc: Aaron Calderón MD; LOLIS ADAM NP Report Number: [id number]: Total DLP = 0.00 mGy-cm Reason for [...] in OV> 12/16/241810 DD/ 08 TD/TT: 12/16/241808 Longwall Foreman: [facility] External Provider IMG CT PROCEDURES Final Result * US Abdomen Limited (12/16/2024 3:52 PM EDT) Anatomical Region Laterality Modality Abdomen Ultrasound 12/16/2024 3:52 PM EDT Narrative 12/16/2024 4:09 PM EDT [place] [address] Ultrasound Report Signed Patient: Teena Garza MR#: [id number] : 1980 Acct:[id number] Age/Sex: 44 / F ADM Date: 12/16/24 Loc: .ED Attending Dr: Ordering Physician: Aaron Calderón MD Date of Service: 12/16/24 Procedure(s): US abdomen limited Accession Number(s): [id number] cc: Aaron Calderón MD; LOLIS ADAM NP [...] signed by Osbaldo Mcmahan MD in OV> 12/16/241605 DD/ 51 TD/TT: 12/16/241554 Longwall Foreman: Procedure Note Donotuseinterpreter, Image - 12/16/2024 [place] [address] Ultrasound Report Signed Patient: Teena Garza MMR#: [id number] : 1980Acct:[id number] Age/Sex: 44 / FADM Date: 12/16/24 Loc: .ED Attending Dr: Ordering Physician: Aaron Calderón MD Date of Service: 12/16/24 Procedure(s): US abdomen limited Accession Number(s): [id number] cc: Aaron Calderón MD; LOLIS ADAM NP [...] signed by Osbaldo Mcmahan MD in OV> 12/16/241605 DD/ 51 TD/TT: 12/16/241554 Longwall Foreman: us [facility] External Provider IMG US PROCEDURES Final Result * Hold Lavender - Possible Hematology (12/16/2024 12:13 PM EDT) Hold Lavender - Possible Hematololgy SEE NOTE [facility] Comment:Specimen will be hel d untested for 8 hours. Call Hematologyif testing is desired. 12/16/2024 12:1 3 PM EDT 12/16/2024 12:28 PM EDT us Generic External Data Provider HISTORICAL/NON OR DERABLE LABS Final Result Performing Organization Address [facility] Co de Phone Number [facility] [address] [place] [address] [phone] * (ABNORMAL) Lipid Panel, Standard (06/11/2024 10:40 AM EDT) Triglycerides 213(H) <150 mg/dL [facility] Comment:Desirable Triglyceri de: less than 150 mg/dLBorderline High Triglyceride 150-199 mg/dLHigh Triglyceride: 200-499 mg/dLVery High Triglyceride: greater than or equal to 5OO mg/dL Cholesterol 183 <200 mg/dL [facility] Comment:Desirable Cholestero l: less than 200 mg/dLBorderline High Cholesterol: 200-239 mg/dLHigh Cholesterol: greater than 239 mg/dL LDL Cholesterol Calculated 104(H) <100 mg/dL [facility] Comment:Desirable LDL: less than 100 mg/dLNear Optimal/Above Optimal LDL: 110- 129 mg/dLBorderline High LDL: 130-159 mg/dLHigh LDL: 160-189 mg/dLVery High LDL: greater than or equal to 190 mg/dL HDL Cholesterol 37(L) >40 mg/dL [facility] Comment:Desirable HDL: great er than 40 mg/dL Note: This HDL assay may give artificially low results in patients with liver disease. Blood Venous blood specimen / Unknown 06/11/2024 10:40 AM EDT 06/11/2024 1:11 PM EDT us Lolis Adam [facility] BLOOD ORDERABLES Final Resul t Performing Organization Address City/[facility]/ZIP Co de Phone Number [facility] [address] [place] [phone] * BI US Breast Limited Left (12/24/2023 1:53 PM EDT) Anatomical Region Laterality Modality Breast Left Ultrasound 12/24/2023 1:53 PM EDT Narrative 12/24/2023 3:01 PM EDT [address] [place] [address] Ultrasound Report Signed Patient: Teena Garza MR#: [id number] : 1980 Acct:[id number] Age/Sex: 43 / F ADM Date: 12/24/23 Loc: HO.MAMMO Attending Dr: Lolis Adam NP Ordering Physician: LOLIS ADAM NP Date of Service: 12/24/23 Procedure(s): US breast LT limited mamm only Accession Number(s): [id number] cc: LOLIS ADAM NP EXAMINATION: MM DIAGNOSTIC DIGITAL BREAST TOMOSYNTHESIS, BILATERAL US BREAST LIMITED, LEFT CLINICAL INFORMATION: 43-year-old female, complaining of left breast lump 9:00 axis middle depth. Due for yearly. COMPARISON: Mammography: 07/17/2021, 06/04/2021, 05/23/2021 (all from [place]). TECHNIQUE: Digital breast tomosynthesis is performed in [...] 12/24/23 1458 DD/ 1353 TD/TT: 12/24/23 1415 Longwall Foreman: Procedure Note Donotuseinterpreter, Image - 12/24/2023 [facility] [address] [place] [address] Ultrasound Report Signed Patient: Regan MichaelAudraTeena [facility]#: [id number] : 1980Acct:[id number] Age/Sex: 43 / FADM Date: 12/24/23 Loc: HO.MAMMO Attending Dr: Lolis Adam NP Ordering Physician: LOLIS ADAM NP Date of Service: 12/24/23 Procedure(s): US breast LT limited mamm only Accession Number(s): [id number] cc: LOLIS ADAM NP EXAMINATION: MM DIAGNOSTIC DIGITAL BREAST TOMOSYNTHESIS, BILATERAL US BREAST LIMITED, LEFT CLINICAL INFORMATION: 43-year-old female, complaining of left breast lump 9:00 axis middle depth. Due for yearly. COMPARISON: Mammography: 07/17/2021, 06/04/2021, 05/23/2021 (all from [place]). TECHNIQUE: Digital breast tomosynthesis is performed in [...] regions of of both breasts, unchanged from 202. -The area of palpable concern at 9:00, [...] 12/24/23 1458 DD/ 1353 TD/TT: 12/24/23 1415 Longwall Foreman: us Lolis [facility] IMG US PROCEDURES Edited Result - Final * Hepatitis C Antibody with Reflex to HCV, RNA, Quantitative, Real-Time PCR (05/16/2023 10:46 AM EST) Hepatitis C Antibody Nonreactive Nonreactive [facility] Comment:Antibodies to HCV no t detected; does not exclude early acuteHCV infection. Blood Venous blood specimen / Unknown 05/16/2023 10:46 AM EST 05/16/2023 11:35 AM EST us Lolis [facility] LAB BLOOD ORDERABLES Final Resul t [facility] [address] [place] [address] [phone] * HIV-1/2 Antigen and Antibodies, Fourth Generation, with Reflexes (05/16/2023 10:46 AM EST) HIV AB/AG Nonreactive Nonreactive [facility] Comment:HIV-1 p24 Ag and/or HIV-1/HIV-2 Ab not detected.A test result that is nonreactive does not exclude thepossibility of exposure to or infection with HIV-1 and/orHIV-2. Nonreactive results in this assay for individualswith prior exposure to HIV-1 and/or HIV-2 may be due toantigen and antibody levels that are below the limit ofdetection of this assay.The [employer] HIV Ag/Ab Combo assay result andsupplemental assay results should be interpreted inconjunction with the patient's clinical presentation,history and other laboratory results. If the results areinconsistent with clinical evidence, additional testing issuggested to confirm the result. Blood Venous blood specimen / Unknown 05/16/2023 10:46 AM EST 05/16/2023 11:35 AM EST [facility] LAB BLOOD ORDERABLES Final Resul t [facility] [address] [place] [phone] from Last 3 Months or Most Recently [...] diabetic neuropathy 02/08/2025 Weekly blood pressure task 02/09/2025 Weekly blood pressure task 02/09/2025 Weekly blood pressure task 02/09/2025 Patient has chronic kidney disease 02/09/2025 Patient has chronic kidney disease 02/09/2025 Patient has chronic kidney disease 02/09/2025 Patient has diabetic neuropathy 02/09/2025 Patient has diabetic neuropathy 02/09/2025 Patient has diabetic neuropathy 02/09/2025 Insurance [facility] C3 Care Teams Intensive Care Unit Registered Nurse Relationship Specialty Start Date End Date Lolis Adam ANP [address] [place] [address] PCP - General Family Medicine 11/04/20 Kolby Morin PharmD [address] [place] [address] Pharmacist Internal Medicine 08/19/23
--- OUTSIDE RECORDS SUMMARY | 2025-02-14 10:19 | XMS_ITS | Encounter Summary ---
Author Organization [employer] Address [address] [place] [address] Care Team Providers Care Public Space Attendant Name Role Phone Fiorella Calvo Primary Care Provider [phone] Kolby Morin PharmD Unavailable [phone] Encounter Details Date Type Department Care Team ([facility] st Contact Info) Description 01/11/2025 Results Follow-Up [facility] [address] [place], [place] [phone] Fiorella Calvo ANP [address] [place] [phone] CT Abdomen Pelvis w/ Contrast Social History [...] the past 12 months, has t he [employer], gas, oil or water company threatened to [...] Info) Description 02/15/2025 11:30 AM EST Telemedicine [facility] [address] [place] [phone] Rachael Lambert, PharmD [address] [place] [address] 03/08/2025 2:00 PM EST Office Visit [facility] [address] [place] [phone] Fiorella Calvo ANP [address] [place] [address] documented as of this encounter Goals Goal [...] as of this encounter Care Teams Public Space Attendant Relationship Specialty Start Date End Date Fiorella Calvo ANP [address] [place] [phone] PCP - General Family Medicine 11/04/20 Kolby Morin, PharmD [address] [place] [phone] Pharmacist Internal Medicine 08/19/23 documented as of this encounter
--- OUTSIDE RECORDS SUMMARY | 2025-02-14 10:19 | XMS_ITS | Encounter Summary ---
Author Organization [employer] Address [address] [facility] [address] [place] [address] Care Team Providers Care Waters[place] Coordinator Name Role Phone Fiorella Calvo Primary Care Provider [phone] Kolby Morin PharmD Unavailable [phone] Reason for Visit * Reason Onset Date Comments Med Refill 07/29/2024 Encounter Details Date Type Department Care Team (Late st Contact Info) Description 07/29/2024 Refill [facility] [address] [place], [place] [phone] Fiorella Calvo ANP [address] [place] [address] Type 2 diabetes mellitus with hyperlipidemia (CMS/HCC) [...] Info) Description 02/15/2025 11:30 AM EST Telemedicine [facility] [address] [place] [phone] Rachael Lambert, KariD [address] [place] [address] 03/08/2025 2:00 PM EST Office Visit [facility] [address] [place] [phone] Fiorella Calvo ANP [address] [place] [address] documented as of this encounter Goals Goal [...] documented as of this encounter Care Teams Watershed Coordinator Relationship Specialty Start Date End Date Fiorella Calvo ANP [address] [place] [address] PCP - General Family Medicine 11/04/20 Kolby Morin PharmD [address] [place] [address] Pharmacist Internal Medicine 08/19/23 documented as of this encounter
--- OUTSIDE RECORDS SUMMARY | 2025-02-14 10:19 | XMS_ITS | Encounter Summary ---
Author Organization [employer] Address 75 [facility] 7t [place] [address] Care Team Providers Care Deicer Tester Name Role Phone Fiorella Calvo Primary Care Provider [phone] Kolby Morin PharmD Unavailable [phone] Reason for Visit * Reason Onset Date Comments Med Refill 12/15/2023 Encounter Details Date Type Department Care Team (Late st Contact Info) Description 12/15/2023 Refill [facility] [address] [place] [address] Fiorella Calvo ANP 230 [place] [address] Chronic left-sided low back pain with left-sided [...] Info) Description 02/15/2025 11:30 AM EST Telemedicine [facility] MEDICINE [address] [place] [address] Rachael Lambert PharmD [address] [place] [address] 03/08/2025 2:00 PM EST Office Visit [facility] MEDICINE [address] [place] [address] Fiorella Calvo ANP [address] [place] [address] documented as of this encounter Goals Goal [...] documented as of this encounter Care Teams Deicer Tester Relationship Specialty Start Date End Date Fiorella Calvo ANP [address] [place] [address] PCP - General Family Medicine 11/04/20 Kolby Morin PharmD [address] [place] [address] Pharmacist Internal Medicine 08/19/23 documented as of this encounter
--- OUTSIDE RECORDS SUMMARY | 2025-02-14 10:19 | XMS_ITS | Encounter Summary ---
Author Organization [employer] Address 75 [facility] 7t [place] [address] Care Team Providers Care Composition Siding Worker Name Role Phone Fiorella Calvo Primary Care Provider [phone] Kolby Morin PharmD Unavailable [phone] Reason for Visit * Reason Onset Date Comments Med Refill 12/18/2024 Encounter Details Date Type Department Care Team (Late st Contact Info) Description 12/18/2024 Refill [facility] MEDICINE 230 [place], [place] [phone] Fiorella Calvo ANP 230 [place] [address] Type 2 diabetes mellitus with hyperlipidemia (HCC); [...] Info) Description 02/15/2025 11:30 AM EST Telemedicine [facility] MEDICINE [address] [place] [address] Rachael Lambert, PharmD [address] [place] [address] 03/08/2025 2:00 PM EST Office Visit [facility] MEDICINE [address] [place] [address] Fiorella Calvo, RIANA 230 [place] [address] documented as of this encounter Goals Goal [...] documented as of this encounter Care Teams Composition Siding Worker Relationship Specialty Start Date End Date Fiorella Calvo ANP 230 [place] [address] PCP - General Family Medicine 11/04/20 Kolby Morin, Love 230 [place] [address] Pharmacist Internal Medicine 08/19/23 documented as of this encounter
--- OUTSIDE RECORDS SUMMARY | 2025-02-14 10:19 | XMS_ITS | Encounter Summary ---
Author Organization [employer] Address 75 [facility] 7t [place] [address] Care Team Providers Care Animated Cartoons Painter Name Role Phone Fiorella Calvo Primary Care Provider [phone] Kolby Morin PharmD Unavailable [phone] Reason for Visit * Reason Onset Date Comments Med Refill 05/09/2024 Encounter Details Date Type Department Care Team (Late st Contact Info) Description 05/09/2024 Refill [facility] MEDICINE [address] [place], [place] [phone] Fiorella Calvo ANP 230 [place] [address] Type 2 diabetes mellitus with hyperlipidemia ([facility]/HCC) ([facility]) Social History Tobacco Use Types Packs/Day [...] Info) Description 02/15/2025 11:30 AM EST Telemedicine [facility] MEDICINE [address] [place] [address] Rachael Lambert PharmD [address] [place] [address] 03/08/2025 2:00 PM EST Office Visit [facility] MEDICINE [address] [place] [address] Fiorella Calvo, ANP [address] [place] [address] documented as of this encounter Goals Goal [...] documented as of this encounter Care Teams Animated Cartoons Painter Relationship Specialty Start Date End Date Fiorella Calvo ANP 230 [place] [address] PCP - General Family Medicine 11/04/20 Kolby Morin PharmD 230 [place] [address] Pharmacist Internal Medicine 08/19/23 documented as of this encounter
--- OUTSIDE RECORDS SUMMARY | 2025-02-14 10:19 | XMS_ITS | Encounter Summary ---
Author Organization [employer] Address [address] [place] [address] 7 [place] [address] Care Team Providers Care Casino Investigator Name Role Phone Fiorella Calvo Primary Care Provider Kolby Morin PharmD Unavailable [phone] Reason for Visit * Reason Onset Date Comments Med Refill 05/25/2024 Encounter Details Date Type Department Care Team (Late st Contact Info) Description 05/25/2024 Refill [facility] MEDICINE 230 [place], [place] [phone] Jyoti Melendez NP 230 [place], [place] [phone] Type 2 diabetes mellitus with hyperlipidemia (CMS/HCC) ([facility]/HCC); Diabetic polyneuropathy associated with type [...] EST Telemedicine [facility] MEDICINE [address] [place] [address] Rachael Lambert, KariD [address] [place] [address] 03/08/2025 2:00 PM EST Office Visit [facility] MEDICINE [address] [place] [address] Fiorella Calvo ANP 230 [place] [address] documented as of this encounter Goals Goal [...] as of this encounter Care Teams Casino Investigator Relationship Specialty Start Date End Date Fiorella Calvo ANP 230 [place] [address] PCP - General Family Medicine 11/04/20 Kolby Morin, Love 230 [place] [address] Pharmacist Internal Medicine 08/19/23 documented as of this encounter
--- OUTSIDE RECORDS SUMMARY | 2025-02-14 10:19 | XMS_ITS | Encounter Summary ---
Author Organization [employer] [facility] Address 75 [facility] 7t [place] [address] Care Team Providers Care Life Cycle Assessment Analyst Name Role Phone Fiorella Calvo Primary Care Provider [phone] Kolby Morin PharmD Unavailable [phone] Reason for Visit * Reason Onset Date Comments Med Refill 10/20/2023 Encounter Details Date Type Department Care Team (Late st Contact Info) Description 10/20/2023 Refill [facility] MEDICINE 230 [place], [place] [phone] Fiorella Calvo ANP 230 [place] [address] Type 2 diabetes mellitus with hyperlipidemia (CMS/HCC) [...] Info) Description 02/15/2025 11:30 AM EST Telemedicine [facility] MEDICINE [address] [place] [address] Rachael Lambert PharmD [address] [place] [address] 03/08/2025 2:00 PM EST Office Visit [facility] MEDICINE [address] [place] [address] [phone] Fiorella Calvo ANP [address] [place] [address] documented as of this encounter Goals Goal [...] documented as of this encounter Care Teams Life Cycle Assessment Analyst Relationship Specialty Start Date End Date Fiorella Calvo ANP [address] [place] [address] PCP - General Family Medicine 11/04/20 Kolby Morin, KariD [address] [place] [address] Pharmacist Internal Medicine 08/19/23 documented as of this encounter
--- OUTSIDE RECORDS SUMMARY | 2025-02-14 10:19 | XMS_ITS | Encounter Summary ---
Author Organization [employer] Address 75 [facility] 7t [place] [address] Care Team Providers Care Pipe Fitter Supervisor Maintenance Name Role Phone Fiorella Calvo Primary Care Provider [phone] Kolby Morin PharmD Unavailable [phone] Reason for Visit * Reason Onset Date Comments Medication Question 12/17/2024 Durable Medical Equipment 12/17/2024 Encounter Details Date Type Department Care Team (Late st Contact Info) Description 12/17/2024 Telephone [facility] MEDICINE 230 [place], [place] [phone] Fiorella Calvo ANP 230 [place] [address] Medication Question; Durable Medical Equipment Social History [...] script for a nebulizer Contact pt at [phone] (yemeni) documented in this encounter Plan of Treatment Upcoming Encounters Date Type Department Care Team ([facility] st Contact Info) Description 02/15/2025 11:30 AM EST Telemedicine [address] [address] Rachael Lambert, Love 230 [place] [address] 03/08/2025 2:00 PM EST Office Visit [address] [address] Fiorella Calvo ANP [address] [place] [address] documented as of this encounter Goals Goal Patient Goal Type Associated Problems Recent Progress Patient-Stated? Author Quit using tobacco (cigarettes, smokeless, etc) Tobacco Use No Kolby Morin, Love documented as of this encounter Visit Diagnoses Not on filedocumented in this encounter Additional Health Concerns Assessment Noted Time PHQ-9 Depression Total Score: 26 025 11:43 AM EST documented as of this encounter Care Teams Pipe Fitter Supervisor Maintenance Relationship Specialty Start Date End Date Fiorella Calvo ANP [address] [place] [address] PCP - General Family Medicine 11/04/20 Kolby Morin, KariD [address] [place] [address] [phone] Pharmacist Internal Medicine 08/19/23 documented as of this encounter
--- OUTSIDE RECORDS SUMMARY | 2025-02-14 10:19 | XMS_ITS | Encounter Summary ---
Author Organization [employer] Address 75 [facility] 7 [place] [address] Care Team Providers Care Clinical Resource Nurse Name Role Phone Fiorella Calvo Primary Care Provider [phone] Kolby Morin PharmD Unavailable [phone] Reason for Visit * Reason Onset Date Comments PT1 06/30/2024 Encounter Details Date Type Department Care Team (Late st Contact Info) Description 06/30/2024 Telephone [facility] MEDICINE 230 [place], [place] [phone] Fiorella Calvo ANP 230 [place], [place] [phone] PT1 Social History Tobacco Use Types Packs/Day [...] Y/N: Yes Provider name or facility name: [facility] - [address] [place] [address] Escort needed: Y/N: No Do you have a wheelchair: Y/N: No If yes- Manual or electric: N/A Visits: (2x monthly) documented in this encounter Plan of Treatment Upcoming Encounters Date Type Department Care Team ([facility] Contact Info) Description 02/15/2025 11:30 AM EST Telemedicine [facility] MEDICINE 230 [place] [address] Rachael Lambert, Love 230 [place] [address] 03/08/2025 2:00 PM EST Office Visit [facility] MEDICINE [address] [place] [address] Fiorella Calvo ANP [address] [place] [address] documented as of this encounter Goals Goal Patient Goal Type Associated Problems Recent Progress Patient-Stated? Author Quit using tobacco (cigarettes, smokeless, etc) Tobacco Use No Kolby Morin, KariD documented as of this encounter Visit Diagnoses Not on filedocumented in this encounter Additional Health Concerns Assessment Noted Time PHQ-9 Depression Total Score: 26 025 11:43 AM EST documented as of this encounter Care Teams Clinical Resource Nurse Relationship Specialty Start Date End Date Fiorella Calvo ANP [address] [place] [address] PCP - General Family Medicine 11/04/20 Kolby Morin, PharmD [address] [place] [address] Pharmacist Internal Medicine 08/19/23 documented as of this encounter
--- OUTSIDE RECORDS SUMMARY | 2025-02-14 10:19 | XMS_ITS | Patient Health Record ---
Author Organization [facility] Address [facility] [address] [place] [address] Care Team Providers Care Mud Jack Operator Name Role Phone OMAYRA SIEGEL Primary Care [...] PM; Duration: 30 days 07/17/2021 Active Pen Boulder 516 31G X 8 MM Miscellaneous as directed SQ once daily; Duration: 30 days 07/17/2021 Active Actos 15 MG Tablet 1 tablet Orally Once a day D/C Glipizide; Duration: 30 day(s) 06/01/2021 Active Tricor 145 MG Tablet 1 tablet Orally Onc e a day D/C Lopid; Duration: 30 days 06/01/2021 Active Immunizations Vaccine Route Administration Date Status Comme [facility] ADM SARSCV2 30MCG TRS-SUCR B (T[place] dariel) IM Intramuscular 05/19/2021 Administered [employer] COVID-19 2da dosis IM Intramuscular 12/08/2020 Administered [...] Supermercados, [facility] [place] viajado fu[place] o hayes estado en contacto con alguien que haya estado fuera [place] en los pasados 14 luna No Se hayes vacunado contra el COVID-19 3 dosis Sw[employer] SIM History Social Info Question Answer Notes [...] de maltrato No ..Viaje reciente fu[place] <2 meses No Nececidades para comunicacion o [...] Do you drink alcohol? Socially Section Notes: JOSE ARMANDO DIAZ RN, BSN Lic. 7 [id number], NATALY M 03/10/2020 11:43:13 AM > JOSE ARMANDO DIAZ RN, BSN Lic. 7 [id number], NATALY 04/07/2020 11:18:34 AM > SPIKE NEAL RN, ADN Lic. 2 [id number], KASSIDY 06/10/2021 02:03:29 PM > WISEMAN RN, BSN Lic. [id number], BRADY B 10/16/2019 03:44:18 PM > JOSE ARMANDO DIAZ RN, BSN Lic. 7 [id number], NATALY M 06/14/2021 08:19:05 AM > JOSE ARMANDO DIAZ RN, BSN Lic. 7 [id number], NATALY 01/26/2021 10:02:26 AM > JOSE ARMANDO DIAZ RN, BSN Lic. 7 [id number], NATALY M 12/03/2020 10:16:04 AM > WISEMAN RN, BSN Lic. [id number], BRADY B 10/16/2019 03:44:18 PM > JOSE ARMANDO DIAZ RN, BSN Lic. 7 [id number], NATALY M 06/28/2021 11:10:25 AM > JOSE ARMANDO DIAZ RN, BSN Lic. 7 [id number], NATALY 04/25/2020 09:59:43 AM > OPAL TAYLOR RN, B[place] Li c. [id number], ABIGAIL Clark 08/08/2021 01:15:14 PM > BRAND[place]. [id number], ASHWIN 07/17/2021 01:50:44 PM > JAYNA RICHARDS RN, ADN Lic. [id number], EWA 05/11/2021 06:00:05 PM > TINA BATES RN, BSN Lic. 3 [id number], LUCIA 11/06/2019 07:58:39 AM > JOSE ARMANDO DIAZ RN, BSN Lic. 7 [id number], NATALY 03/16/2020 11:21:17 AM > JOSE ARMANDO DIAZ RN, BSN Lic. 7 [id number], NATALY Cuellar 06/23/2020 10:18:09 AM > JOSE ARMANDO DIAZ RN, BSN Lic. 7 [id number], NATALY Cuellar 12/14/2020 09:34:35 AM > JAYNA RICHARDS RN, ADN Lic. [id number] 06/01/2021 08:05:14 PM > JOSE ARMANDO DIAZ RN, BSN Lic. 7 [id number], NATALY Cuellar 07/06/2021 01:30:25 PM > Problems Problem Type SNOMED Code ICD Code Onset Dates Problem Status W/U Status Risk Notes Problem Information temporarily unavailable Other iron deficiency anemias (D50.8) Active confirmed Problem Information temporarily unavailable Type 2 diabetes mellitus with other diabetic kidney complication (E11.29) Active confirmed Problem Information temporarily unavailable Type 2 diabetes mellitus with diabetic autonomic (poly)neuropathy (E11.43) Active confirmed Problem Information temporarily unavailable Morbid (severe) obesity due to excess calories (E66.01) Active confirmed Problem Information temporarily unavailable Other chronic pain (G89.29) Active confirmed Problem Information temporarily unavailable Mild intermittent asthma, uncomplicated (J45.20) Active confirmed Problem Information temporarily unavailable Cervical high risk human papillomavirus (HPV) DNA test positive (R87.810) Active confirmed Problem Information temporarily unavailable Other abnormal and inconclusive findings on diagnostic imaging of breast (R92.8) Active confirmed Problem Information temporarily unavailable Type 2 diabetes mellitus with hyperglycemia (E11.65) Active confirmed Problem Information temporarily unavailable Type 2 diabetes mellitus with hyperglycemia, without long-term current use of insulin (E11.65) Active confirmed Problem Information temporarily unavailable Smoker (F17.200) Active confirmed Problem Information temporarily unavailable Hypertriglyceridemia (E78.1) Active confirmed Problem Information temporarily unavailable Oropharyngeal dysphagia (R13.12) Active confirmed Problem Information temporarily unavailable BMI 39.0-39.9,adult (Z68.39) Active confirmed Problem Information temporarily unavailable Uncontrolled type 2 diabetes mellitus with hyperglycemia (E11.65) Active confirmed Problem Information temporarily unavailable Diabetes type 2, uncontrolled (E11.65) Active confirmed Plan Of Treatment Pending Test Test Name Order Date US BREAST BILATERAL 07/14/2018 HERPES I, II IGM 05/15/2021 URINE [id number] 05/15/2021 Future Test Test Name Order Date HCG QUAL () 01/05/2019 Insurance Providers Payer Name Payer Address Payer Phone Subscriber Number Group Number Insured Name Patient Relationship to Insured Coverage Start Date Coverage End Date TRIPLE S CAP PSG [address] [place] [address] [id number] F Teena Garza Self - patient is the insured 9 2 Medical (General) History Medical History History ICD Code ANEMIA VIRUS DE PAPILOMA .Hipertension .Diabetes Other headache syndrome G44.89 Type 2 diabetes mellitus with hyperglyce shama E11.65 Hospitalization History Reason Date(Month/Year) [facility]ONARD DE EMERGENCI[facility] (ASMA) 10/2018
--- OUTSIDE RECORDS SUMMARY | 2025-02-14 10:19 | XMS_ITS | Encounter Summary ---
Author Organization [employer] Address 75 [facility] 7 [place] [address] Care Team Providers Care Fish Bait Picker Name Role Phone Fiorella Calvo Primary Care Provider Kolby Morin PharmD Unavailable [phone] Reason for Visit * Reason Onset Date Comments Pt-1 08/12/2024 Encounter Details Date Type Department Care Team (Late st Contact Info) Description 08/12/2024 Telephone [facility] MEDICINE 230 [place], [place] [phone] Fiorella Calvo ANP 230 [place], [place] [phone] Pt-1 Social History Tobacco Use Types Packs/Day [...] Y/N: Yes Provider name or facility name: [facility] Facility Address: [address] [place] [address] Escort needed: Y/N: No Do you have a wheelchair: Y/N: No If yes- Manual or electric: N/A Visits: twice a month documented in this encounter Plan of Treatment Upcoming Encounters Date Type Department Care Team (Late st Contact Info) Description 02/15/2025 11:30 AM EST Telemedicine [facility] MEDICINE 230 [place] [address] Rachael Lambert, KariD 230 [place] [address] 03/08/2025 2:00 PM EST Office Visit [facility] MEDICINE 230 [place] [address] Fiorella Calvo ANP 230 [place] [address] documented as of this encounter Goals Goal Patient Goal Type Associated Problems Recent Progress Patient-Stated? Author Quit using tobacco (cigarettes, smokeless, etc) Tobacco Use No Kolby Morin, KariD documented as of this encounter Visit Diagnoses Not on filedocumented in this encounter Additional Health Concerns Assessment Noted Time PHQ-9 Depression Total Score: 26 025 11:43 AM EST documented as of this encounter Care Teams Fish Bait Picker Relationship Specialty Start Date End Date Fiorella Calvo ANP [address] [place] [address] PCP - General Family Medicine 11/04/20 Kolby Morin, PharmD [address] [place] [address] Pharmacist Internal Medicine 08/19/23 documented as of this encounter
--- OUTSIDE RECORDS SUMMARY | 2025-02-14 10:19 | XMS_ITS | Encounter Summary ---
Author Organization [employer] Address 75 [facility] 7t [place] [address] Care Team Providers Care Valve Maker Name Role Phone Fiorella Calvo Primary Care Provider [phone] Kolby Morin PharmD Unavailable [phone] Reason for Visit * Reason Onset Date Comments Med Refill 01/01/2025 Encounter Details Date Type Department Care Team (Late st Contact Info) Description 01/01/2025 Refill [facility] MEDICINE 230 [place], [place] [phone] Fiorella Calvo ANP 230 [place] [address] Type 2 diabetes mellitus with obesity; Type [...] Description 02/15/2025 11:30 AM EST Telemedicine [facility] MEDICINE [address] [place] [address] Rachael Lambert, KariD 230 [place] [address] 03/08/2025 2:00 PM EST Office Visit [facility] MEDICINE [address] [place] [address] Fiorella Calvo, RIANA 230 [place] [address] documented as of this encounter Goals Goal [...] documented as of this encounter Care Teams Valve Maker Relationship Specialty Start Date End Date Fiorella Calvo ANP 230 [place] [address] PCP - General Family Medicine 11/04/20 Kolby Morin PharmD 230 [place] [address] Pharmacist Internal Medicine 08/19/23 documented as of this encounter
--- OUTSIDE RECORDS SUMMARY | 2025-02-14 10:19 | XMS_ITS | Encounter Summary ---
Author Organization [employer] Address 75 [facility] 7t [place] [address] Care Team Providers Care Scientific Informatics Leader Name Role Phone Fiorella Calvo Primary Care Provider [phone] Kolby Morin PharmD Unavailable [phone] Reason for Visit * Reason Onset Date Comments Med Refill 05/09/2024 Encounter Details Date Type Department Care Team (Late st Contact Info) Description 05/09/2024 Refill [facility] MEDICINE 230 [place], [place] [phone] Jyoti Melendez NP 230 [place] [address] Type 2 diabetes mellitus with hyperlipidemia ([facility]/HCC) ([facility]) Social History Tobacco Use Types [...] Info) Description 02/15/2025 11:30 AM EST Telemedicine [facility] MEDICINE [address] [place] [address] Rachael Lambert, KariD [address] [place] [address] 03/08/2025 2:00 PM EST Office Visit [facility] MEDICINE [address] [place] [address] Fiorella Calvo, ANP [address] [place] [address] documented as of this encounter Goals Goal [...] documented as of this encounter Care Teams Scientific Informatics Leader Relationship Specialty Start Date End Date Fiorella Calvo ANP 230 [place] [address] PCP - General Family Medicine 11/04/20 Kolby Morin PharmD 230 [place] [address] Pharmacist Internal Medicine 08/19/23 documented as of this encounter
--- OUTSIDE RECORDS SUMMARY | 2025-02-14 10:19 | XMS_ITS | Encounter Summary ---
Author Organization [employer] Address 75 [facility] 7t [place] [address] Care Team Providers Care Enrollment Management Director Name Role Phone Fiorella Calvo Primary Care Provider [phone] Kolby Morin PharmD Unavailable [phone] Reason for Visit * Reason Onset Date Comments Med Refill 12/22/2024 Encounter Details Date Type Department Care Team (Late st Contact Info) Description 12/22/2024 Refill [facility] MEDICINE 230 [place], [place] [phone] Fiorella Calvo ANP 230 [place] [address] Type 2 diabetes mellitus with hyperlipidemia (HCC); [...] 02/15/2025 11:30 AM EST Telemedicine [facility] MEDICINE [address] [place] [address] Rachael Lambert PharmD [address] [place] [address] 03/08/2025 2:00 PM EST Office Visit [facility] MEDICINE [address] [place] [address] Fiorella Calvo ANP [address] [place] [address] documented as of this encounter Goals Goal [...] documented as of this encounter Care Teams Enrollment Management Director Relationship Specialty Start Date End Date Fiorella Calvo ANP 230 [place] [address] PCP - General Family Medicine 11/04/20 Kolby Morin, Love 230 [place] [address] Pharmacist Internal Medicine 08/19/23 documented as of this encounter
--- OUTSIDE RECORDS SUMMARY | 2025-02-14 10:20 | XMS_ITS | Encounter Summary ---
Author Organization [employer] Address 75 [facility] 7t [place] [address] Care Team Providers Care Nutritionist Name Role Phone Fiorella Calvo Primary Care Provider [phone] Kolby Morin PharmD Unavailable [phone] Reason for Visit * Reason Onset Date Comments Med Refill 02/07/2025 Encounter Details Date Type Department Care Team (Late st Contact Info) Description 02/06/2025 Refill [facility] 230 [place], [place] [phone] Fiorella Calvo ANP 230 [place] [address] Chronic pain of left knee; Osteoarthritis of [...] Info) Description 02/15/2025 11:30 AM EST Telemedicine [facility] [address] [place] [address] Rachael Lambert, KariD [address] [place] [address] 03/08/2025 2:00 PM EST Office Visit [facility] [address] [place] [address] Fiorella Calvo, ANP 230 [place] [address] documented as of this encounter Goals Goal Patient Goal Type Associated Problems Recent Progress Patient-Stated? Author Quit using tobacco (cigarettes, smokeless, etc) Tobacco Use No Kolby Morin, PharmD Help patients manage their type 2 diabetes Care Plan Help patients manage their type 2 diabetes No Kristen Siddiuqi RN Weekly blood pressure task Care Plan [...] Weekly blood pressure task No Adilia Ragsdaleupe, RAT BREEDER Weekly blood pressure task Care Plan Weekly blood pressure task No Mitcho Lorna, RAT BREEDER Weekly blood pressure task Care Plan Weekly blood pressure task No Okclementineo Lorna, RAT BREEDER Patient has chronic kidney disease Care Plan Patient has chronic kidney disease No Okhipo Lorna, RAT BREEDER Patient has chronic kidney disease Care Plan Patient has chronic kidney disease No Okhipo Lorna, RAT BREEDER Patient has chronic kidney disease Care Plan Patient has chronic kidney disease No Okhipo, Lorna, RAT BREEDER Patient has diabetic neuropathy Care Plan Patient has diabetic neuropathy No Okhipo, Lorna, RAT BREEDER Patient has diabetic neuropathy Care Plan Patient has diabetic neuropathy No Okhipo, Lorna, RAT BREEDER Patient has diabetic neuropathy Care Plan Patient has diabetic neuropathy No Okclementineo, Lorna, RAT BREEDER Weekly blood pressure task Care Plan Weekly [...] Weekly blood pressure task No Pacheco, Yoselin, COMMERCIAL JOURNEYMAN ELECTRICIAN Weekly blood pressure task Care Plan Weekly blood pressure task No Pacheco Yoselin, COMMERCIAL JOURNEYMAN ELECTRICIAN Weekly blood pressure task Care Plan Weekly blood pressure task No Pacheco, Yoselin, COMMERCIAL JOURNEYMAN ELECTRICIAN Patient has chronic kidney disease Care Plan Patient has chronic kidney disease No Pacheco, Yoselin, COMMERCIAL JOURNEYMAN ELECTRICIAN Patient has chronic kidney disease Care Plan Patient has chronic kidney disease No Pacheco, Yoselin, COMMERCIAL JOURNEYMAN ELECTRICIAN Patient has chronic kidney disease Care Plan Patient has chronic kidney disease No Pacheco, Yoselin, COMMERCIAL JOURNEYMAN ELECTRICIAN Patient has diabetic neuropathy Care Plan Patient has diabetic neuropathy No Pacheco, Yoselin, COMMERCIAL JOURNEYMAN ELECTRICIAN Patient has diabetic neuropathy Care Plan Patient has diabetic neuropathy No Pacheco, Yoselin, COMMERCIAL JOURNEYMAN ELECTRICIAN Patient has diabetic neuropathy Care Plan Patient has diabetic neuropathy No Pacheco, Yoselin, COMMERCIAL JOURNEYMAN ELECTRICIAN Weekly blood pressure task Care Plan Weekly [...] documented as of this encounter Care Teams Nutritionist Relationship Specialty Start Date End Date Fiorella Calvo ANP [address] [place] [address] PCP - General Family Medicine 11/04/20 Kolby Morin, Love [address] [place] [address] Pharmacist Internal Medicine 08/19/23 documented as of this encounter
--- OUTSIDE RECORDS SUMMARY | 2025-02-14 10:20 | XMS_ITS | Encounter Summary ---
Author Organization [employer] Address 75 [facility] 7t [place] [address] Care Team Providers Care Neonatal Specialist Name Role Phone Fiorella Calvo Primary Care Provider [phone] Kolby Morin PharmD Unavailable [phone] Reason for Visit * Reason Comments Med Refill Encounter Details Date Type Department Care Team (Late st Contact Info) Description 01/21/2025 Refill [facility] 230 [place], [place] [phone] Fiorella Calvo ANP 230 [place] [address] Chronic pain of left knee; Osteoarthritis of [...] Info) Description 02/15/2025 11:30 AM EST Telemedicine [facility] [address] [place] [address] Rachael Lambert PharmD [address] [place] [address] 03/08/2025 2:00 PM EST Office Visit [facility] [address] [place] [address] Fiorella Calvo ANP [address] [place] [address] documented as of this encounter Goals Goal [...] documented as of this encounter Care Teams Neonatal Specialist Relationship Specialty Start Date End Date Fiorella Calvo ANP 230 [place] [address] PCP - General Family Medicine 11/04/20 Kolby Morin, Love [address] [place] [address] Pharmacist Internal Medicine 08/19/23 documented as of this encounter
--- OUTSIDE RECORDS SUMMARY | 2025-02-14 10:20 | XMS_ITS | Encounter Summary ---
Author Organization [email or web address] Address 75 [facility] 7t [place] [address] Care Team Providers Care Limb Driver Name Role Phone Fiorella Calvo Primary Care Provider [phone] Kolby Morin PharmD Unavailable [phone] Reason for Visit * Reason Onset Date Comments Med Refill 04/14/2024 Encounter Details Date Type Department Care Team (Late st Contact Info) Description 04/14/2024 Refill [facility]INE 230 [place], [place] [phone] Fiorella Calvo ANP 230 [place] [address] Type 2 diabetes mellitus with hyperlipidemia ([facility]/HCC) ([facility]) Social History [...] Assessment Author Very difficult 04/17/2024 11:43 AM Neeat Duarte [place] * Over the last 2 [...] Info) Description 02/15/2025 11:30 AM EST Telemedicine [facility] MED[facility]INE [address] [place] [address] Rachael Lambert, KariD 230 [place] [address] 03/08/2025 2:00 PM EST Office Visit [facility] MED[facility]INE [address] [place] [address] Fiorella Calvo ANP [address] [place] [address] documented as of this encounter Goals Goal [...] documented as of this encounter Care Teams Limb Driver Relationship Specialty Start Date End Date Fiorella Calvo ANP [address] [place] [address] PCP - General Family Medicine 11/04/20 Kolby Morin PharmD [address] [place] [address] Pharmacist Internal Medicine 08/19/23 documented as of this encounter
--- OUTSIDE RECORDS SUMMARY | 2025-02-14 10:20 | XMS_ITS | Encounter Summary ---
Author Organization [employer] Address [address] [facility] 7t [place] [address] Care Team Providers Care Clinical Research Analyst Name Role Phone Fiorella Calvo Primary Care Provider [phone] Kolby Morin PharmD Unavailable [phone] Reason for Visit * Reason Onset Date Comments Med Refill 01/25/2025 Encounter Details Date Type Department Care Team (Late st Contact Info) Description 01/25/2025 Telephone [facility] MEDICINE 230 [place], [place] [phone] Fiorella Calvo ANP 230 [place], [place] [phone] Med Refill Social History Tobacco Use Types [...] PM EST Call received from Camila at [facility] lab stating courtesy call to report borderline T- Spot. documented in this encounter Plan of Treatment Upcoming Encounters Date Type Department Care Team (Late st Contact Info) Description 02/15/2025 11:30 AM EST Telemedicine [facility] MED[facility]INE [address] [place] [address] Rachael Lambert, Love [address] [place] [address] 03/08/2025 2:00 PM EST Office Visit [facility] [address] [place] [address] Fiorella Calvo, ANP 230 [place] [address] documented as of this encounter Goals Goal [...] as of this encounter Care Teams Clinical Research Analyst Relationship Specialty Start Date End Date Fiorella Calvo ANP 230 [place] [address] PCP - General Family Medicine 11/04/20 Kolby Morin, KariD 230 [place] [address] Pharmacist Internal Medicine 08/19/23 documented as of this encounter
--- OUTSIDE RECORDS SUMMARY | 2025-02-14 10:20 | XMS_ITS | Encounter Summary ---
Author Organization [employer] Address 75 [facility] 7t [place] [address] Care Team Providers Care Carrot Grader Inspector Name Role Phone Fiorella Calvo Primary Care Provider [phone] Kolby Morin PharmD Unavailable Reason for Visit * Reason Onset Date Comments Med Refill 01/21/2025 Encounter Details Date Type Department Care Team (Late st Contact Info) Description 01/21/2025 Refill [facility] 230 [place] [address] Fiorella Calvo ANP 230 [place] [address] Chronic pain of left knee; Osteoarthritis of [...] EST Telemedicine [facility] MEDICINE [address] [place] [address] Rachael Lambert, KariD [address] [place] [address] 03/08/2025 2:00 PM EST Office Visit [facility] MED[facility]INE [address] [place] [address] Fiorella Calvo ANP 230 [place] [address] documented as of this encounter Goals Goal [...] documented as of this encounter Care Teams Carrot Grader Inspector Relationship Specialty Start Date End Date Fiorella Calvo ANP 230 [place] [address] PCP - General Family Medicine 11/04/20 Kolby Morin PharmD 230 [place] [address] Pharmacist Internal Medicine 08/19/23 documented as of this encounter
--- OUTSIDE RECORDS SUMMARY | 2025-02-14 10:20 | XMS_ITS | Encounter Summary ---
Author Organization [employer] Address [address] [facility] [employer] 7t [place] [address] Care Team Providers Care Furniture Mover Name Role Phone Fiorella Calvo Primary Care Provider [phone] Kolby Morin PharmD Unavailable [phone] Reason for Visit * Reason Onset Date Comments Med Refill 03/22/2024 Encounter Details Date Type Department Care Team (Late st Contact Info) Description 03/22/2024 Refill [facility] MEDICINE 230 [place], [place] [phone] Fiorella Calvo ANP 230 [place] [address] Type 2 diabetes mellitus with hyperlipidemia ([facility]) ([facility]) Social History Tobacco Use Types Packs/Day [...] Info) Description 02/15/2025 11:30 AM EST Telemedicine [facility] MED[facility]INE [address] [place] [address] Rachael Lambert PharmD [address] [place] [address] 03/08/2025 2:00 PM EST Office Visit [facility] [address] [place] [address] Fiorella Calvo, ANP [address] [place] [address] documented as of this encounter Goals Goal [...] documented as of this encounter Care Teams Furniture Mover Relationship Specialty Start Date End Date Fiorella Calvo ANP 230 [place] [address] PCP - General Family Medicine 11/04/20 Kolby Morin PharmD 230 [place] [address] Pharmacist Internal Medicine 08/19/23 documented as of this encounter
--- OUTSIDE RECORDS SUMMARY | 2025-02-14 10:20 | XMS_ITS | Encounter Summary ---
Author Organization [employer] Address 75 [facility] 7t [place] [address] Care Team Providers Care Taxi Servicer Name Role Phone Fiorella Calvo Primary Care Provider [phone] Kolby Morin PharmD Unavailable [phone] Encounter Details Date Type Department Care Team ([facility] st Contact Info) Description 01/13/2025 Results Follow-Up [facility] MEDICINE 230 [place] [address] Fiorella Calvo ANP 230 [place] [address] POCT Glucose, POCT Hgb A1c, POCT Glucose, [...] the past 12 months, has t he [employer], gas, oil or water [employer] threatened to shut off services in your [...] preguntas. Take care, Cu??Fiorella de los santos SENIOR CLINICAL RESEARCH SCIENTIST documented in this encounter Plan of Treatment Upcoming Encounters Date Type Department Care Team (Late st Contact Info) Description 02/15/2025 11:30 AM EST Telemedicine [facility] MEDICINE [address] [place] [address] Rachael Lambert, KariD [address] [place] [address] 03/08/2025 2:00 PM EST Office Visit [address] [address] Fiorella Calvo ANP [address] [place] [address] documented as of this encounter Goals Goal Patient Goal Type Associated Problems Recent Progress Patient-Stated? Author Quit using tobacco (cigarettes, smokeless, etc) Tobacco Use No Kolby Morin, KariD documented as of this encounter Visit Diagnoses Not on filedocumented in this encounter Additional Health Concerns Assessment Noted Time PHQ-9 Depression Total Score: 21 025 1:51 PM EDT documented as of this encounter Care Teams Taxi Servicer Relationship Specialty Start Date End Date Fiorella Calvo ANP [address] [place] [address] PCP - General Family Medicine 11/04/20 Kolby Morin, PharmD [address] [place] [address] Pharmacist Internal Medicine 08/19/23 documented as of this encounter
--- OUTSIDE RECORDS SUMMARY | 2025-02-14 10:20 | XMS_ITS | Encounter Summary ---
Author Organization [employer] Address 75 [facility] 7t [place] [address] Care Team Providers Care Senior Human Resources Representative Name Role Phone Fiorella Calvo Primary Care Provider [phone] Kolby Morin PharmD Unavailable [phone] Reason for Visit * Reason Onset Date Comments Med Refill 02/08/2025 Encounter Details Date Type Department Care Team (Late st Contact Info) Description 02/08/2025 Refill [facility] MEDICINE 230 [place] [address] Fiorella Calvo ANP 230 [place] [address] Chronic pain of left knee; Osteoarthritis of [...] Info) Description 02/15/2025 11:30 AM EST Telemedicine [facility] MEDICINE [address] [place] [address] Rachael Lambert, KariD [address] [place] [address] 03/08/2025 2:00 PM EST Office Visit [facility] MEDICINE [address] [place] [address] Fiorella Calvo, ANP 230 [place] [address] documented as of this encounter Goals Goal [...] Weekly blood pressure task No Adilia Ragsdaleupe, CHEMICAL RESEARCH TECHNICIAN Weekly blood pressure task Care Plan Weekly blood pressure task No Mitcho Lorna, CHEMICAL RESEARCH TECHNICIAN Weekly blood pressure task Care Plan Weekly blood pressure task No Okclementineo Lorna, CHEMICAL RESEARCH TECHNICIAN Patient has chronic kidney disease Care Plan Patient has chronic kidney disease No Okhipo Lorna, CHEMICAL RESEARCH TECHNICIAN Patient has chronic kidney disease Care Plan Patient has chronic kidney disease No Okhipo Lorna, CHEMICAL RESEARCH TECHNICIAN Patient has chronic kidney disease Care Plan Patient has chronic kidney disease No Okhipo, Lorna, CHEMICAL RESEARCH TECHNICIAN Patient has diabetic neuropathy Care Plan Patient has diabetic neuropathy No Okhipo, Lorna, CHEMICAL RESEARCH TECHNICIAN Patient has diabetic neuropathy Care Plan Patient has diabetic neuropathy No Okhipo, Lorna, CHEMICAL RESEARCH TECHNICIAN Patient has diabetic neuropathy Care Plan Patient has diabetic neuropathy No Okclementineo, Lorna, CHEMICAL RESEARCH TECHNICIAN Weekly blood pressure task Care Plan Weekly [...] Weekly blood pressure task No Pacheco, Yoselin, LICENSED PRACTICAL NURSE Weekly blood pressure task Care Plan Weekly blood pressure task No Pacheco Yoselin, LICENSED PRACTICAL NURSE Weekly blood pressure task Care Plan Weekly blood pressure task No Pacheco, Yoselin, LICENSED PRACTICAL NURSE Patient has chronic kidney disease Care Plan Patient has chronic kidney disease No Pacheco, Yoselin, LICENSED PRACTICAL NURSE Patient has chronic kidney disease Care Plan Patient has chronic kidney disease No Pacheco, Yoselin, LICENSED PRACTICAL NURSE Patient has chronic kidney disease Care Plan Patient has chronic kidney disease No Pacheco, Yoselin, LICENSED PRACTICAL NURSE Patient has diabetic neuropathy Care Plan Patient has diabetic neuropathy No Pacheco, Yoselin, LICENSED PRACTICAL NURSE Patient has diabetic neuropathy Care Plan Patient has diabetic neuropathy No Pacheco, Yoselin, LICENSED PRACTICAL NURSE Patient has diabetic neuropathy Care Plan Patient has diabetic neuropathy No Pacheco, Yoselin, LICENSED PRACTICAL NURSE Weekly blood pressure task Care Plan Weekly [...] Weekly blood pressure task No Yoselin Pacheco, LICENSED PRACTICAL NURSE Weekly blood pressure task Care Plan Weekly blood pressure task No PachecoMarkga, LICENSED PRACTICAL NURSE Weekly blood pressure task Care Plan Weekly blood pressure task No PachecoMarkga, LICENSED PRACTICAL NURSE Patient has chronic kidney disease Care Plan Patient has chronic kidney disease No PachecoMarkga, LICENSED PRACTICAL NURSE Patient has chronic kidney disease Care Plan Patient has chronic kidney disease No PachecoMarkga, LICENSED PRACTICAL NURSE Patient has chronic kidney disease Care Plan Patient has chronic kidney disease No Mark Pachecoga, LICENSED PRACTICAL NURSE Patient has diabetic neuropathy Care Plan Patient has diabetic neuropathy No PachecoMarkga, LICENSED PRACTICAL NURSE Patient has diabetic neuropathy Care Plan Patient has diabetic neuropathy No Mark Pachecoga, LICENSED PRACTICAL NURSE Patient has diabetic neuropathy Care Plan Patient has diabetic neuropathy No Yoselin Pacheco, LICENSED PRACTICAL NURSE Weekly blood pressure task Care Plan Weekly [...] as of this encounter Care Teams Senior Human Resources Representative Relationship Specialty Start Date End Date Fiorella Calvo ANP 230 [place] [address] PCP - General Family Medicine 11/04/20 Kolby Morin, Love [address] [place] [address] Pharmacist Internal Medicine 08/19/23 documented as of this encounter
--- OUTSIDE RECORDS SUMMARY | 2025-02-14 10:20 | XMS_ITS | Encounter Summary ---
Author Organization [employer] [facility] Address [address] [place] [address] 7t [place] [address] Care Team Providers Care Digital Cartographic Technician Name Role Phone Fiorella Calvo Primary Care Provider Kolby Morin PharmD Unavailable [phone] Reason for Visit * Reason Comments Med Refill Encounter Details Date Type Department Care Team (Late st Contact Info) Description 09/18/2023 Refill [facility] MEDICINE [address] [place] [address] Fiorella Calvo ANP 230 [place] [address] Pain and swelling of left knee Social [...] Info) Description 02/15/2025 11:30 AM EST Telemedicine [address] [address] Rachael Lambert, Love [address] [place] [address] 03/08/2025 2:00 PM EST Office Visit [address] [address] Fiorella Calvo ANP [address] [place] [address] documented as of this encounter Goals Goal [...] documented as of this encounter Care Teams Digital Cartographic Technician Relationship Specialty Start Date End Date Fiorella Calvo ANP [address] [place] [address] PCP - General Family Medicine 11/04/20 Kolby Morin, KariD [address] [place] [address] Pharmacist Internal Medicine 08/19/23 documented as of this encounter
--- OUTSIDE RECORDS SUMMARY | 2025-02-14 10:20 | XMS_ITS | Encounter Summary ---
Author Organization [employer] [facility] Address [address] [place] [address] 7 [place] [address] Care Team Providers Care Overhauler Helper Name Role Phone Fiorella Calvo Primary Care Provider [phone] Kolby Morin PharmD Unavailable [phone] Reason for Visit * Reason Onset Date Comments Med Refill 07/16/2023 Encounter Details Date Type Department Care Team (Late st Contact Info) Description 07/16/2023 Refill [facility] MEDICINE 230 [place] [address] Fiorella Calvo ANP 230 [place] [address] Diabetes mellitus type 2 in obese Social [...] Info) Description 02/15/2025 11:30 AM EST Telemedicine [facility] MEDICINE 230 [place] [address] Rachael Lambert, PharmD 230 [place] [address] 03/08/2025 2:00 PM EST Office Visit [facility] MEDICINE 230 [place] [address] Fiorella Calvo ANP [address] [place] [address] documented as of this encounter Visit Diagnoses Diagnosis Diabetes mellitus type 2 in obese Type II or unspecified type diabetes mellitus without mention of complication, not stated as uncontrolled documented in this encounter Care Teams Overhauler Helper Relationship Specialty Start Date End Date Fiorella Calvo ANP [address] [place] [address] PCP - General Family Medicine 11/04/20 Kolby Morin, KariD [address] [place] [address] Pharmacist Internal Medicine 08/19/23 documented as of this encounter
--- OUTSIDE RECORDS SUMMARY | 2025-02-14 10:20 | XMS_ITS | Encounter Summary ---
Author Organization [employer] Address 75 [facility] 7 [place] [address] Care Team Providers Care Court Specialist Name Role Phone Fiorella Calvo Primary Care Provider [phone] Kolby Morin PharmD Unavailable [phone] Reason for Visit * Reason Comments Med Refill Encounter Details Date Type Department Care Team ([facility] st Contact Info) Description 01/19/2025 Refill [facility] MEDICINE 230 [place], [place] [phone] Fiorella Calvo ANP 230 [place] [address] Type 2 diabetes mellitus with hyperlipidemia (HCC) [...] AM EST Telemedicine [facility] MEDICINE [address] [place] [phone] Rachael Lambert PharmD [address] [place] [address] 03/08/2025 2:00 PM EST Office Visit [facility] MEDICINE [address] [place] [address] Fiorella Calvo ANP [address] [place] [address] documented as of this encounter Goals Goal [...] documented as of this encounter Care Teams Court Specialist Relationship Specialty Start Date End Date Fiorella Calvo ANP 230 [place] [address] PCP - General Family Medicine 11/04/20 Kolby Morin PharmD 230 [place] [address] Pharmacist Internal Medicine 08/19/23 documented as of this encounter
--- OUTSIDE RECORDS SUMMARY | 2025-02-14 10:20 | XMS_ITS | Encounter Summary ---
Author Organization [employer] [facility] Address [address] [facility] 7t [place] [address] Care Team Providers Care Broom Worker Name Role Phone Fiorella Calvo Primary Care Provider [phone] Kolby Morin PharmD Unavailable [phone] Reason for Visit * Reason Onset Date Comments Med Refill 04/16/2024 Encounter Details Date Type Department Care Team (Late st Contact Info) Description 04/16/2024 Refill [facility] 230 [place], [place] [phone] Fiorella Calvo ANP 230 [place] [address] Type 2 diabetes mellitus with hyperlipidemia (CMS/HCC) ([facility]) (Primary Dx) Social History Tobacco Use Types [...] Info) Description 02/15/2025 11:30 AM EST Telemedicine [facility] MED[facility]INE [address] [place] [address] Rachael Lambert, KariD 230 [place] [address] 03/08/2025 2:00 PM EST Office Visit [facility] MED[facility] [address] [place] [address] Fiorella Calvo ANP [address] [place] [address] documented as of this encounter Goals Goal [...] documented as of this encounter Care Teams Broom Worker Relationship Specialty Start Date End Date Fiorella Calvo ANP [address] [place] [address] PCP - General Family Medicine 11/04/20 Kolby Morin, KariD [address] [place] [address] Pharmacist Internal Medicine 08/19/23 documented as of this encounter
--- OUTSIDE RECORDS SUMMARY | 2025-02-14 10:20 | XMS_ITS | Encounter Summary ---
Author Organization [employer] Address 75 [facility] 7t [place] [address] Care Team Providers Care Acoustical Logging Engineer Name Role Phone Fiorella Calvo Primary Care Provider [phone] Kolby Morin PharmD Unavailable [phone] Encounter Details Date Type Department Care Team ([facility] st Contact Info) Description 02/08/2025 Results Follow-Up [facility] [address] [place] [address] Fiorella Calvo ANP [address] [place] [address] T-SPOT .TB Social History Tobacco Use Types [...] Info) Description 02/15/2025 11:30 AM EST Telemedicine [facility] [address] [place] [address] Rachael Lambert, Love [address] [place] [address] 03/08/2025 2:00 PM EST Office Visit [facility] [address] [place] [address] Fiorella Calvo, RIANA [address] [place] [address] documented as of this encounter Goals Goal [...] Weekly blood pressure task No Adilia Ragsdaleupe, POLICE JUDGE Weekly blood pressure task Care Plan Weekly blood pressure task No Mitcho Lorna, POLICE JUDGE Weekly blood pressure task Care Plan Weekly blood pressure task No Mitcho Lorna, POLICE JUDGE Patient has chronic kidney disease Care Plan Patient has chronic kidney disease No Okclementineo Lorna, POLICE JUDGE Patient has chronic kidney disease Care Plan Patient has chronic kidney disease No Mitcho Lorna, POLICE JUDGE Patient has chronic kidney disease Care Plan Patient has chronic kidney disease No Okclementineo Lorna, POLICE JUDGE Patient has diabetic neuropathy Care Plan Patient has diabetic neuropathy No Okhipo Lonra, POLICE JUDGE Patient has diabetic neuropathy Care Plan Patient has diabetic neuropathy No Okhipo, Lorna, POLICE JUDGE Patient has diabetic neuropathy Care Plan Patient has diabetic neuropathy No Okclementineo Lorna, POLICE JUDGE Weekly blood pressure task Care Plan Weekly [...] Care Plan Patient has diabetic neuropathy No Kenroy Wattra Patient has diabetic neuropathy Care Plan Patient [...] Weekly blood pressure task No Pacheco, Yoselin, ORACLE R12 DEVELOPER Weekly blood pressure task Care Plan Weekly blood pressure task No Pacheco Yoselin, ORACLE R12 DEVELOPER Weekly blood pressure task Care Plan Weekly blood pressure task No Pacheco, Yoselin, ORACLE R12 DEVELOPER Patient has chronic kidney disease Care Plan Patient has chronic kidney disease No Pacheco, Yoselin, ORACLE R12 DEVELOPER Patient has chronic kidney disease Care Plan Patient has chronic kidney disease No Pacheco, Yoselin, ORACLE R12 DEVELOPER Patient has chronic kidney disease Care Plan Patient has chronic kidney disease No Pacheco, Yoselin, ORACLE R12 DEVELOPER Patient has diabetic neuropathy Care Plan Patient has diabetic neuropathy No Pacheco, Yoselin, ORACLE R12 DEVELOPER Patient has diabetic neuropathy Care Plan Patient has diabetic neuropathy No Pacheco, Yoselin, ORACLE R12 DEVELOPER Patient has diabetic neuropathy Care Plan Patient has diabetic neuropathy No Pacheco, Yoselin, ORACLE R12 DEVELOPER Weekly blood pressure task Care Plan Weekly [...] Plan Patient has chronic kidney disease No Fiorelal Calvo ANP Patient has chronic kidney disease [...] Weekly blood pressure task No Yoselin Pacheco ORACLE R12 DEVELOPER Weekly blood pressure task Care Plan Weekly blood pressure task No Yoselin Pacheco LPN Weekly blood pressure task Care Plan Weekly blood pressure task No Pacheco, Yoselin, ORACLE R12 DEVELOPER Patient has chronic kidney disease Care Plan Patient has chronic kidney disease No PachecoMarkga, ORACLE R12 DEVELOPER Patient has chronic kidney disease Care Plan Patient has chronic kidney disease No PachecoMarkga, ORACLE R12 DEVELOPER Patient has chronic kidney disease Care Plan Patient has chronic kidney disease No PachecoMarkga, ORACLE R12 DEVELOPER Patient has diabetic neuropathy Care Plan Patient has diabetic neuropathy No PachecoMarkga, ORACLE R12 DEVELOPER Patient has diabetic neuropathy Care Plan Patient has diabetic neuropathy No PachecoMarkga, ORACLE R12 DEVELOPER Patient has diabetic neuropathy Care Plan Patient has diabetic neuropathy No PachecoMarkga, ORACLE R12 DEVELOPER Weekly blood pressure task Care Plan Weekly [...] documented as of this encounter Care Teams Acoustical Logging Engineer Relationship Specialty Start Date End Date Fiorella Calvo ANP [address] [place] [address] PCP - General Family Medicine 11/04/20 Kolby Morin, Love [address] [place] [address] Pharmacist Internal Medicine 08/19/23 documented as of this encounter
--- OUTSIDE RECORDS SUMMARY | 2025-02-14 10:20 | XMS_ITS | Encounter Summary ---
Author Organization [employer] Address 75 [facility] 7 [place] [address] Care Team Providers Care Tree Expert Name Role Phone Fiorella Calvo Primary Care Provider [phone] Kolby Morin PharmD Unavailable [phone] Reason for Visit * Reason Onset Date Comments Med Refill 04/08/2024 Encounter Details Date Type Department Care Team (Late st Contact Info) Description 04/08/2024 Refill [facility] 230 [place], [place] [phone] Fiorella Calvo ANP 230 [place] [address] Type 2 diabetes mellitus with hyperlipidemia (CMS/HCC) ([facility]/HCC); Diabetic polyneuropathy associated with [...] Info) Description 02/15/2025 11:30 AM EST Telemedicine [facility] [address] [place] [address] Rachael Lambert, KariD [address] [place] [address] 03/08/2025 2:00 PM EST Office Visit [facility] [address] [place] [address] Fiorella Calvo ANP [address] [place] [address] documented as of this encounter Goals Goal [...] documented as of this encounter Care Teams Tree Expert Relationship Specialty Start Date End Date Fiorella Calvo ANP [address] [place] [address] PCP - General Family Medicine 11/04/20 Kolby Morin PharmD 230 [place] [address] Pharmacist Internal Medicine 08/19/23 documented as of this encounter
--- OUTSIDE RECORDS SUMMARY | 2025-02-14 10:20 | XMS_ITS | Encounter Summary ---
Author Organization [employer] Address 75 [facility] 7t [place] [address] Care Team Providers Care Construction Project Assistant Name Role Phone Fiorella Calvo Primary Care Provider [phone] Kolby Morin PharmD Unavailable [phone] Reason for Visit * Reason Onset Date Comments Call Back Request 04/16/2024 Encounter Details Date Type Department Care Team ([facility] st Contact Info) Description 04/16/2024 Telephone [facility] 230 [place], [place] [phone] Fiorella Calvo ANP 230 [place], [place] [phone] Call Back Request Social History Tobacco Use [...] the past 12 months, has t he [employer], gas, oil or water company threatened to [...] half the days 04/17/2024 11:43 AM Kayce uDarte [place] * Thoughts that you would be [...] from pt returning call Please contact at [phone] documented in this encounter Plan of Treatment Upcoming Encounters Date Type Department Care Team (Late st Contact Info) Description 02/15/2025 11:30 AM EST Telemedicine [facility] [address] [place] [address] Rachael Lambert PharmD [address] [place] [address] 03/08/2025 2:00 PM EST Office Visit [facility] [address] [place] [address] Fiorella Calvo ANP [address] [place] [address] documented as of this encounter Goals Goal Patient Goal Type Associated Problems Recent Progress Patient-Stated? Author Quit using tobacco (cigarettes, smokeless, etc) Tobacco Use No Kolby Morin PharmD documented as of this encounter Visit Diagnoses Not on filedocumented in this encounter Additional Health Concerns Assessment Noted Time PHQ-9 Depression Total Score: 20 024 9:15 AM EDT documented as of this encounter Care Teams Construction Project Assistant Relationship Specialty Start Date End Date Fiorella Calvo ANP [address] [place] [address] PCP - General Family Medicine 11/04/20 Kolby Morin PharmD [address] [place] [address] Pharmacist Internal Medicine 08/19/23 documented as of this encounter
--- OUTSIDE RECORDS SUMMARY | 2025-02-14 10:20 | XMS_ITS | Encounter Summary ---
Author Organization [employer] Address 75 [facility] 7 [place] [address] Care Team Providers Care Sweet Pickled Fruit Maker Name Role Phone Fiorella Calvo Primary Care Provider [phone] Kolby Morin PharmD Unavailable [phone] Reason for Visit * Reason Onset Date Comments PT1 04/23/2024 Encounter Details Date Type Department Care Team (Late st Contact Info) Description 04/23/2024 Telephone [facility] 230 [place], [place] [phone] Fiorella Calvo ANP 230 [place], [place] [phone] PT1 Social History Tobacco Use Types Packs/Day [...] Y/N: Yes Provider name or facility name: [address] [place] [id number] Escort needed: Y/N: No Do you have a wheelchair: Y/N: No If yes- Manual or electric: N/A Visits: (2x monthly) documented in this encounter Plan of Treatment Upcoming Encounters Date Type Department Care Team (Late st Contact Info) Description 02/15/2025 11:30 AM EST Telemedicine [facility] 230 [place] [address] Rachael Lambert, PharmD 230 [place] [address] 03/08/2025 2:00 PM EST Office Visit [facility] 230 [place] [address] Fiorella Calvo ANP [address] [place] [address] documented as of this encounter Goals Goal Patient Goal Type Associated Problems Recent Progress Patient-Stated? Author Quit using tobacco (cigarettes, smokeless, etc) Tobacco Use No Kolby Morin, PharmD documented as of this encounter Visit Diagnoses Not on filedocumented in this encounter Additional Health Concerns Assessment Noted Time PHQ-9 Depression Total Score: 26 025 11:43 AM EST documented as of this encounter Care Teams Sweet Pickled Fruit Maker Relationship Specialty Start Date End Date Fiorella Calvo ANP [address] [place] [address] PCP - General Family Medicine 11/04/20 Kolby Morin, PharmD [address] [place] [address] Pharmacist Internal Medicine 08/19/23 documented as of this encounter
--- OUTSIDE RECORDS SUMMARY | 2025-02-14 10:20 | XMS_ITS | Encounter Summary ---
Author Organization [employer] Address 75 [facility] 7t [place] [address] Care Team Providers Care Criminal Defense Attorney Name Role Phone Fiorella Calvo Primary Care Provider [phone] Kolby Morin PharmD Unavailable [phone] Reason for Visit * Reason Onset Date Comments Durable Medical Equipment 01/21/2025 Encounter Details Date Type Department Care Team (Late st Contact Info) Description 01/21/2025 Telephone [facility] 230 [place], [place] [phone] Fiorella Calvo ANP 230 [place], [place] [phone] Durable Medical Equipment Social History Tobacco Use [...] the past 12 months, has t he [employer], gas, oil or water company threatened to [...] monitor was. Any questions contact pt at [phone] documented in this encounter Plan of Treatment Upcoming Encounters Date Type Department Care Team (Late st Contact Info) Description 02/15/2025 11:30 AM EST Telemedicine [facility] [address] [place] [address] Rachael Lambert, Love [address] [place] [address] 03/08/2025 2:00 PM EST Office Visit [facility] [address] [place] [address] Fiorella Calvo ANP [address] [place] [address] documented as of this encounter Goals Goal Patient Goal Type Associated Problems Recent Progress Patient-Stated? Author Quit using tobacco (cigarettes, smokeless, etc) Tobacco Use No Kolby Morin PharmD documented as of this encounter Visit Diagnoses Not on filedocumented in this encounter Additional Health Concerns Assessment Noted Time PHQ-9 Depression Total Score: 21 025 1:51 PM EDT documented as of this encounter Care Teams Criminal Defense Attorney Relationship Specialty Start Date End Date Fiorella Calvo ANP [address] [place] [address] [phone] PCP - General Family Medicine 11/04/20 Kolby Morin, Love [address] [place] [address] [phone] Pharmacist Internal Medicine 08/19/23 documented as of this encounter
--- OUTSIDE RECORDS SUMMARY | 2025-02-14 10:20 | XMS_ITS | Encounter Summary ---
Author Organization [email or web address] [facility] Address [address] [place] [address] 7 [place] [address] Care Team Providers Care Chemical Dependency Therapist Name Role Phone Fiorella Calvo Primary Care Provider [phone] Kolby Morin PharmD Unavailable [phone] Reason for Visit * Reason Comments Med Refill Encounter Details Date Type Department Care Team (Late st Contact Info) Description 07/17/2023 Refill [facility]INE 230 [place], [place] [phone] Fiorella Calvo ANP 230 [place] [address] Type 2 diabetes mellitus with hyperlipidemia ([facility] ([facility]) Social History Tobacco Use Types [...] EST Telemedicine [facility] [address] [place] [address] Rachael Lambert PharmD 230 [place], [place] [phone] 03/08/2025 2:00 PM EST Office Visit [facility] [address] [place] [address] Fiorella Calvo ANP [address] [place] [address] documented as of this encounter Visit Diagnoses Diagnosis Type 2 diabetes mellitus with hyperlipidemia (HCC) documented in this encounter Care Teams Chemical Dependency Therapist Relationship Specialty Start Date End Date Fiorella Calvo ANP [address] [place] [address] PCP - General Family Medicine 11/04/20 Kolby Morin, KariD [address] [place] [address] Pharmacist Internal Medicine 08/19/23 documented as of this encounter
--- OUTSIDE RECORDS SUMMARY | 2025-02-14 10:20 | XMS_ITS | Encounter Summary ---
Author Organization [employer] Address 75 [facility] 7 [place] [address] Care Team Providers Care Cushion Installer Name Role Phone Fiorella Calvo Primary Care Provider [phone] Kolby Morin PharmD Unavailable [phone] Reason for Visit * Reason Comments Med Refill Encounter Details Date Type Department Care Team ([facility] st Contact Info) Description 04/17/2024 Refill [facility] 230 [place], [place] [phone] Fiorella Calvo ANP 230 [place] [address] Type 2 diabetes mellitus with hyperlipidemia ([facility]/HCC) ([facility]) Social History [...] AM EST T/C to pt via BLS Web Analytics Developer Lexa #[id number]. Pt reports the following blood glucose readings after increasing Tresiba dose: 235, 245, 233, 164, 140. Pt agrees to f/u with pcp as scheduled and call [facility] prn symptoms. * Telephone Encounter - Monica [...] Info) Description 02/15/2025 11:30 AM EST Telemedicine [facility]INE [address] [place] [address] Rachael Lambert, Love [address] [place] [address] 03/08/2025 2:00 PM EST Office Visit [facility] [address] [place] [address] Fiorella Calvo, RIANA 230 [place] [address] documented as of this encounter Goals Goal [...] documented as of this encounter Care Teams Cushion Installer Relationship Specialty Start Date End Date Fiorella Calvo ANP [address] [place] [address] PCP - General Family Medicine 11/04/20 Kolby Morin PharmD 230 [place] [address] Pharmacist Internal Medicine 08/19/23 documented as of this encounter
--- OUTSIDE RECORDS SUMMARY | 2025-02-14 10:20 | XMS_ITS | Encounter Summary ---
Author Organization [email or web address] Address 75 [facility] 7t [place] [address] Care Team Providers Care Orchard Pruner Name Role Phone Fiorella Calvo Primary Care Provider [phone] Kolby Morin PharmD Unavailable [phone] Reason for Visit * Reason Comments Med Refill Encounter Details Date Type Department Care Team (Late st Contact Info) Description 02/08/[address] [facility] 230 [place], [place] [phone] Fiorella Calvo ANP 230 [place] [address] Chronic pain of left knee; Osteoarthritis of [...] * Telephone Encounter - RIANA Wahl - 02/10/2025 4:52 PM EST Refill not needed, pt picked up documented in this encounter Plan of Treatment Upcoming Encounters Date Type Department Care Team (Late st Contact Info) Description 02/15/2025 11:[address] [facility] [address] [place] [address] Rachael Lambert, PharmD 230 [place] [address] 03/08/2025 2:00 PM EST Office Visit [facility] 230 [place] [address] Fiorella Calvo ANP [address] [place] [address] documented as of this encounter Goals Goal [...] Plan Patient has chronic kidney disease No rKisten Siddiqui RN Patient has diabetic neuropathy Care [...] Weekly blood pressure task No Adilia Ragsdaleupe, ENGAGEMENT QUALITY CONSULTANT Weekly blood pressure task Care Plan Weekly blood pressure task No Okcleemntineo Lorna, ENGAGEMENT QUALITY CONSULTANT Weekly blood pressure task Care Plan Weekly blood pressure task No Okhipo Lorna, ENGAGEMENT QUALITY CONSULTANT Patient has chronic kidney disease Care Plan Patient has chronic kidney disease No Okhipo Lorna, ENGAGEMENT QUALITY CONSULTANT Patient has chronic kidney disease Care Plan Patient has chronic kidney disease No Okhipo, Lorna, ENGAGEMENT QUALITY CONSULTANT Patient has chronic kidney disease Care Plan Patient has chronic kidney disease No Okhipo, Lorna, ENGAGEMENT QUALITY CONSULTANT Patient has diabetic neuropathy Care Plan Patient has diabetic neuropathy No Okclementineo Lorna, ENGAGEMENT QUALITY CONSULTANT Patient has diabetic neuropathy Care Plan Patient has diabetic neuropathy No Okhipo, Lorna, ENGAGEMENT QUALITY CONSULTANT Patient has diabetic neuropathy Care Plan Patient has diabetic neuropathy No Okhipo, Lorna, ENGAGEMENT QUALITY CONSULTANT Weekly blood pressure task Care Plan Weekly [...] Weekly blood pressure task No Yoselin Pacheco, OTOLARYNGOLOGY TEACHER Weekly blood pressure task Care Plan Weekly blood pressure task No Yoselin Pacheco, OTOLARYNGOLOGY TEACHER Weekly blood pressure task Care Plan Weekly blood pressure task No PachecoMarkga, OTOLARYNGOLOGY TEACHER Patient has chronic kidney disease Care Plan Patient has chronic kidney disease No Mark Pachecoga, OTOLARYNGOLOGY TEACHER Patient has chronic kidney disease Care Plan Patient has chronic kidney disease No Mark Pachecoga, OTOLARYNGOLOGY TEACHER Patient has chronic kidney disease Care Plan Patient has chronic kidney disease No PachecoMarkga, OTOLARYNGOLOGY TEACHER Patient has diabetic neuropathy Care Plan Patient has diabetic neuropathy No PachecoMarkga, OTOLARYNGOLOGY TEACHER Patient has diabetic neuropathy Care Plan Patient has diabetic neuropathy No Pacheco, Yoselin, OTOLARYNGOLOGY TEACHER Patient has diabetic neuropathy Care Plan Patient has diabetic neuropathy No PachecoMarkga, OTOLARYNGOLOGY TEACHER Weekly blood pressure task Care Plan Weekly [...] Weekly blood pressure task No Pacheco, Yoselin, OTOLARYNGOLOGY TEACHER Weekly blood pressure task Care Plan Weekly blood pressure task No Pacheco, Yoselin, OTOLARYNGOLOGY TEACHER Weekly blood pressure task Care Plan Weekly blood pressure task No Pacheco, Yoselin, OTOLARYNGOLOGY TEACHER Patient has chronic kidney disease Care Plan Patient has chronic kidney disease No Pacheco, Yoselin, OTOLARYNGOLOGY TEACHER Patient has chronic kidney disease Care Plan Patient has chronic kidney disease No Pacheco, Yoselin, OTOLARYNGOLOGY TEACHER Patient has chronic kidney disease Care Plan Patient has chronic kidney disease No Pacheco, Yoselin, OTOLARYNGOLOGY TEACHER Patient has diabetic neuropathy Care Plan Patient has diabetic neuropathy No Pacheco, Yoselin, OTOLARYNGOLOGY TEACHER Patient has diabetic neuropathy Care Plan Patient has diabetic neuropathy No Pacheco, Yoselin, OTOLARYNGOLOGY TEACHER Patient has diabetic neuropathy Care Plan Patient has diabetic neuropathy No Pacheco, Yoselin, OTOLARYNGOLOGY TEACHER Weekly blood pressure task Care Plan Weekly [...] documented as of this encounter Care Teams Orchard Pruner Relationship Specialty Start Date End Date Fiorella Calvo ANP [address] [place] [address] PCP - General Family Medicine 11/04/20 Kolby Morin PharmD [address] [place] [address] Pharmacist Internal Medicine 08/19/23 documented as of this encounter
--- OUTSIDE RECORDS SUMMARY | 2025-02-14 10:20 | XMS_ITS | Encounter Summary ---
Author Organization [employer] Address 75 [facility] 7 [place] [address] Care Team Providers Care Superintendent Communications Name Role Phone Fiorella Calvo Primary Care Provider Kolby Morin PharmD Unavailable [phone] Reason for Visit * Reason Onset Date Comments Med Refill 03/23/2024 Encounter Details Date Type Department Care Team (Late st Contact Info) Description 03/23/2024 Refill [facility] MEDICINE 230 [place], [place] [phone] Fiorella Calvo ANP 230 [place] [address] Type 2 diabetes mellitus with hyperlipidemia (CMS/HCC) ([facility]/HCC); Diabetic polyneuropathy associated with type [...] Info) Description 02/15/2025 11:30 AM EST Telemedicine [facility] MEDICINE [address] [place] [address] Rachael Lambert, KariD [address] [place] [address] 03/08/2025 2:00 PM EST Office Visit [facility] MED[facility]INE [address] [place] [phone] Fiorella Calvo ANP 230 [place] [address] documented as of this encounter Goals Goal [...] documented as of this encounter Care Teams Superintendent Communications Relationship Specialty Start Date End Date Fiorella Calvo ANP [address] [place] [address] PCP - General Family Medicine 11/04/20 oKlby Morin PharmD [address] [place] [address] Pharmacist Internal Medicine 08/19/23 documented as of this encounter
--- OUTSIDE RECORDS SUMMARY | 2025-02-14 10:20 | XMS_ITS | Encounter Summary ---
Author Organization [employer] Address [address] [facility] 7 [place] [address] Care Team Providers Care Bobbin Cleaning Machine Operator Name Role Phone Fiorella Calvo Primary Care Provider Kolby Morin PharmD Unavailable [phone] Reason for Visit * Reason Onset Date Comments Med Refill 03/23/2024 Encounter Details Date Type Department Care Team (Late st Contact Info) Description 03/23/2024 Refill [facility] 230 [place], [place] [phone] Fiorella Calvo ANP 230 [place] [address] Type 2 diabetes mellitus with hyperlipidemia (CMS/HCC) ([facility]/HCC); Diabetic polyneuropathy associated with type 2 [...] Info) Description 02/15/2025 11:30 AM EST Telemedicine [facility] [address] [place] [address] Rachael Lambert, KariD [address] [place] [address] 03/08/2025 2:00 PM EST Office Visit [facility] [address] [place] [address] Fiorella Calvo ANP [address] [place] [address] documented as of this encounter Goals Goal [...] documented as of this encounter Care Teams Bobbin Cleaning Machine Operator Relationship Specialty Start Date End Date Fiorella Calvo ANP [address] [place] [address] PCP - General Family Medicine 11/04/20 Kolby Morin PharmD 230 [place] [address] Pharmacist Internal Medicine 08/19/23 documented as of this encounter
--- OUTSIDE RECORDS SUMMARY | 2025-02-14 10:20 | XMS_ITS | Encounter Summary ---
Author Organization [employer] Address [address] [facility] 7t [place] [address] Care Team Providers Care Senior Risk Analyst Name Role Phone Fiorella Calvo Primary Care Provider [phone] Kolby Morin PharmD Unavailable [phone] Reason for Visit * Reason Onset Date Comments Call Back Request 02/08/2025 Encounter Details Date Type Department Care Team ([facility] st Contact Info) Description 02/08/2025 Telephone [facility] [address] [place], [place] [phone] Fiorella Calvo ANP 230 [place], [place] [phone] Call Back Request Social History Tobacco Use [...] 8 tablets of themedication Contact pt at [phone] (wolof) * Telephone Encounter - Coni Melton - 02/08/2025 11:24 AM EST TC from pt requesting a call back in regards of quantity on medication Tramadol. PCP Dr. Calvo documented in this encounter Plan of Treatment Upcoming Encounters Date Type Department Care Team (Late st Contact Info) Description 02/15/2025 11:30 AM EST Telemedicine [address] [phone] Rachael Lambert, PharmD 230 [place] [address] 03/08/2025 2:00 PM EST Office Visit [facility] 230 [place], [place] [phone] Fiorella Calvo ANP 230 [place], [place] [phone] documented as of this encounter Goals Goal [...] Care Plan Weekly blood pressure task No Rodriuge Acevedo [place] Patient has chronic [...] Weekly blood pressure task No Adilia Ragsdaleupe, LAP RUNNER Weekly blood pressure task Care Plan Weekly blood pressure task No Melyssa Lorna, LAP RUNNER Weekly blood pressure task Care Plan Weekly blood pressure task No Adilia Ragsdaleupe, LAP RUNNER Patient has chronic kidney disease Care Plan Patient has chronic kidney disease No Okhipo, Lorna, LAP RUNNER Patient has chronic kidney disease Care Plan Patient has chronic kidney disease No Okhipo, Lorna, LAP RUNNER Patient has chronic kidney disease Care Plan Patient has chronic kidney disease No Okhipo, Lorna, LAP RUNNER Patient has diabetic neuropathy Care Plan Patient has diabetic neuropathy No Okhipo, Lorna, LAP RUNNER Patient has diabetic neuropathy Care Plan Patient has diabetic neuropathy No Okhipo, Lorna, LAP RUNNER Patient has diabetic neuropathy Care Plan Patient has diabetic neuropathy No Okhipo, Lorna, LAP RUNNER Weekly blood pressure task Care Plan Weekly [...] Plan Patient has chronic kidney disease No Caryl Watt Patient has diabetic neuropathy [...] Weekly blood pressure task No Yoselin Pacheco, ARCHITECTURE INTERNSHIP Weekly blood pressure task Care Plan Weekly blood pressure task No Yoselin Pacheco, ARCHITECTURE INTERNSHIP Weekly blood pressure task Care Plan Weekly blood pressure task No Yoselin Pacheco, ARCHITECTURE INTERNSHIP Patient has chronic kidney disease Care Plan Patient has chronic kidney disease No PachecoMarkga, ARCHITECTURE INTERNSHIP Patient has chronic kidney disease Care Plan Patient has chronic kidney disease No PachecoMarkga, ARCHITECTURE INTERNSHIP Patient has chronic kidney disease Care Plan Patient has chronic kidney disease No PachecoaMrkga, ARCHITECTURE INTERNSHIP Patient has diabetic neuropathy Care Plan Patient has diabetic neuropathy No PachecoMarkga, ARCHITECTURE INTERNSHIP Patient has diabetic neuropathy Care Plan Patient has diabetic neuropathy No PachecoMarkga, ARCHITECTURE INTERNSHIP Patient has diabetic neuropathy Care Plan Patient [...] Weekly blood pressure task No Pacheco, Yoselin, ARCHITECTURE INTERNSHIP Weekly blood pressure task Care Plan Weekly blood pressure task No Pacheco, Yoselin, ARCHITECTURE INTERNSHIP Weekly blood pressure task Care Plan Weekly blood pressure task No Pacheco, Yoselin, ARCHITECTURE INTERNSHIP Patient has chronic kidney disease Care Plan Patient has chronic kidney disease No Pacheco, Yoselin, ARCHITECTURE INTERNSHIP Patient has chronic kidney disease Care Plan Patient has chronic kidney disease No Pacheco, Yoselin, ARCHITECTURE INTERNSHIP Patient has chronic kidney disease Care Plan Patient has chronic kidney disease No Pacheco, Yoselin, ARCHITECTURE INTERNSHIP Patient has diabetic neuropathy Care Plan Patient has diabetic neuropathy No Pacheco, Yoselin, ARCHITECTURE INTERNSHIP Patient has diabetic neuropathy Care Plan Patient has diabetic neuropathy No Pacheco, Yoselin, ARCHITECTURE INTERNSHIP Patient has diabetic neuropathy Care Plan Patient has diabetic neuropathy No Pacheco, Yoselin, ARCHITECTURE INTERNSHIP Weekly blood pressure task Care Plan Weekly [...] as of this encounter Care Teams Senior Risk Analyst Relationship Specialty Start Date End Date Fiorella Calvo ANP 230 [place] [address] PCP - General Family Medicine 11/04/20 Kolby Morin PharmD 230 [place] [address] Pharmacist Internal Medicine 08/19/23 documented as of this encounter
--- OUTSIDE RECORDS SUMMARY | 2025-02-14 10:20 | XMS_ITS | Encounter Summary ---
Author Organization [employer] Address [address] [facility] 7 h Floor [address] Care Team Providers Care Database Development Project Manager Name Role Phone Fiorella Calvo Primary Care Provider [phone] Kolby Morin PharmD Unavailable [phone] Reason for Visit * Reason Comments Med Refill Encounter Details Date Type Department Care Team ([facility] st Contact Info) Description 03/27/2024 Refill [facility] 230 [place], [place] [phone] Fiorella Calvo ANP 230 [place] [address] Type 2 diabetes mellitus with hyperlipidemia (CMS/HCC) ([facility]/HCC); Diabetic polyneuropathy associated with type 2 diabetes mellitus ([facility]/HCC) Social History Tobacco Use Types Packs/Day Years [...] AM EST Telemedicine [facility] [address] [place] [address] Rachael Lambert PharmD [address] [place] [address] 03/08/2025 2:00 PM EST Office Visit [facility] [address] [place] [address] Fiorella Calvo ANP [address] [place] [address] documented as of this encounter Goals Goal [...] documented as of this encounter Care Teams Database Development Project Manager Relationship Specialty Start Date End Date Fiorella Calvo ANP [address] [place] [address] PCP - General Family Medicine 11/04/20 Kolby Morin, Love [address] [place] [address] Pharmacist Internal Medicine 08/19/23 documented as of this encounter
--- OUTSIDE RECORDS SUMMARY | 2025-02-14 10:20 | XMS_ITS | Encounter Summary ---
Author Organization [facility] Address [address] [place] [address] 7t [place] [address] Care Team Providers Care Stevedore Hold Name Role Phone Fiorella Calvo Primary Care Provider [phone] Kolby Morin PharmD Unavailable [phone] Reason for Visit * Reason Onset Date Comments Nurse Triage 09/11/2023 Encounter Details Date Type Department Care Team (Late st Contact Info) Description 09/11/2023 Telephone [facility] MED[facility]INE 230 [place], [place] [phone] Fiorella Calvo ANP 230 [place] [address] Nurse Triage Social History Tobacco Use Types [...] 09/11/2023 11:35 AM EDT Triage call with [facility] Checker ID [id number] Pt reports has had chest pain for [...] Chest Pain (Adult) Protocol-Based Disposition: Go to ED/[facility] Now (or to Office with PCP Approval) [...] on chest The caller accepted this outcome Japanese speaker documented in this encounter Plan of Treatment Upcoming Encounters Date Type Department Care Team (Late st Contact Info) Description 02/15/2025 11:30 AM EST Telemedicine [facility] MEDICINE 230 [place], [place] [phone] Rachael Lambert, Love [address] [place] [address] 03/08/2025 2:00 PM EST Office Visit [facility] MED[facility]INE 230 [place] [address] Fiorella Calvo ANP [address] [place] [address] documented as of this encounter Goals Goal Patient Goal Type Associated Problems Recent Progress Patient-Stated? Author Quit using tobacco (cigarettes, smokeless, etc) Tobacco Use No Kolby Morin, Love documented as of this encounter Visit Diagnoses Not on filedocumented in this encounter Additional Health Concerns Assessment Noted Time PHQ-9 Depression Total Score: 23 024 2:49 PM EDT documented as of this encounter Care Teams Stevedore Hold Relationship Specialty Start Date End Date Fiorella Calvo ANP [address] [place] [address] PCP - General Family Medicine 11/04/20 Kolby Morin, PharmD [address] [place] [address] Pharmacist Internal Medicine 08/19/23 documented as of this encounter
--- OUTSIDE RECORDS SUMMARY | 2025-02-14 10:21 | XMS_ITS | Encounter Summary ---
Author Organization [employer] Address 75 [facility] 7t [place] [address] Care Team Providers Care Staff Midwife Name Role Phone Fiorella Calvo Primary Care Provider [phone] Kolby Morin PharmD Unavailable [phone] Reason for Visit * Reason Onset Date Comments Med Refill 11/13/2024 Encounter Details Date Type Department Care Team (Late st Contact Info) Description 11/13/2024 Refill [facility]INE 230 [place], [place] [phone] Fiorella Calvo ANP [address] [place] [address] Type 2 diabetes mellitus with obesity ([facility]) ([facility]) Social History Tobacco [...] Description 02/15/2025 11:30 AM EST Telemedicine [facility] [address] [place] [address] Rachael Lambert PharmD [address] [place] [address] 03/08/2025 2:00 PM EST Office Visit [facility] [address] [place] [address] Fiorella Calvo, ANP [address] [place] [address] documented as of this encounter Goals Goal [...] documented as of this encounter Care Teams Staff Midwife Relationship Specialty Start Date End Date Fiorella Calvo ANP [address] [place] [address] PCP - General Family Medicine 11/04/20 Kolby Morin PharmD [address] [place] [address] Pharmacist Internal Medicine 08/19/23 documented as of this encounter
--- OUTSIDE RECORDS SUMMARY | 2025-02-14 10:21 | XMS_ITS | Encounter Summary ---
Author Organization [employer] Address [address] [facility] 7 [place] [address] Care Team Providers Care It Business Analyst Name Role Phone Fiorella Calvo Primary Care Provider [phone] Kolby Morin PharmD Unavailable [phone] Reason for Visit * Reason Onset Date Comments Med Refill 12/04/2024 Encounter Details Date Type Department Care Team (Late st Contact Info) Description 12/04/2024 Refill [facility] MED[facility]INE 230 [place], [place] [phone] Fiorella Calvo ANP 230 [place] [address] Type 2 diabetes mellitus with hyperlipidemia (CMS/HCC) ([facility]/HCC); Diabetic polyneuropathy associated with [...] EST Telemedicine [facility] MEDICINE [address] [place] [address] Rachael Lambert, KariD 230 [place] [address] 03/08/2025 2:00 PM EST Office Visit [facility] MEDICINE [address] [place] [address] Fiorella Calvo ANP [address] [place] [address] documented as of this encounter Goals Goal [...] as of this encounter Care Teams It Business Analyst Relationship Specialty Start Date End Date Fiorlela Calvo ANP [address] [place] [address] PCP - General Family Medicine 11/04/20 Kolby Morin PharmD [address] [place] [address] Pharmacist Internal Medicine 08/19/23 documented as of this encounter
--- OUTSIDE RECORDS SUMMARY | 2025-02-14 10:21 | XMS_ITS | Encounter Summary ---
Author Organization [employer] Address [address] [facility] 7t [place] [address] Care Team Providers Care Hand Tennis Ball Coverer Name Role Phone Fiorella Calvo Primary Care Provider [phone] Kolby Morin PharmD Unavailable [phone] Encounter Details Date Type Department Care Team (Latest Contact Info) Description 02/09/2025 Travel Social History Tobacco Use Types Packs/Day [...] 02/15/2025 11:30 AM EST Telemedicine [facility] MEDICINE [address] [place] [address] Rachael Lambert, PharmD [address] [place] [address] 03/08/2025 2:00 PM EST Office Visit [facility] MED[facility]INE [address] [place] [address] Fiorella Calvo ANP [address] [place] [address] documented as of this encounter Goals Goal [...] Weekly blood pressure task No Adilia Ragsdaleupe, TREE PULLER Weekly blood pressure task Care Plan Weekly blood pressure task No Mitcho Lorna, TREE PULLER Weekly blood pressure task Care Plan Weekly blood pressure task No Okclementineo Lorna, TREE PULLER Patient has chronic kidney disease Care Plan Patient has chronic kidney disease No Okhipo Lorna, TREE PULLER Patient has chronic kidney disease Care Plan Patient has chronic kidney disease No Okhipo Lorna, TREE PULLER Patient has chronic kidney disease Care Plan Patient has chronic kidney disease No Okhipo Lorna, TREE PULLER Patient has diabetic neuropathy Care Plan Patient has diabetic neuropathy No Okhipo Lorna, TREE PULLER Patient has diabetic neuropathy Care Plan Patient has diabetic neuropathy No Okhipo Lorna, TREE PULLER Patient has diabetic neuropathy Care Plan Patient has diabetic neuropathy No Okhipo, Lorna, TREE PULLER Weekly blood pressure task Care Plan [...] Plan Patient has diabetic neuropathy No Carly Wtat Weekly blood pressure task [...] Care Plan Weekly blood pressure task No oHlland Burks MD Patient has chronic kidney disease [...] Weekly blood pressure task No Pacheco, Yoselin, FOOD VENDOR Weekly blood pressure task Care Plan Weekly blood pressure task No Pacheco, Yoselin, FOOD VENDOR Weekly blood pressure task Care Plan Weekly blood pressure task No Pacheco, Yoselin, FOOD VENDOR Patient has chronic kidney disease Care Plan Patient has chronic kidney disease No Pacheco, Yoselin, FOOD VENDOR Patient has chronic kidney disease Care Plan Patient has chronic kidney disease No Pacheco, Yoselin, FOOD VENDOR Patient has chronic kidney disease Care Plan Patient has chronic kidney disease No Pacheco, Yoselin, FOOD VENDOR Patient has diabetic neuropathy Care Plan Patient has diabetic neuropathy No Pacheco, Yoeslin, FOOD VENDOR Patient has diabetic neuropathy Care Plan Patient has diabetic neuropathy No Pacheco, Yoselin, FOOD VENDOR Patient has diabetic neuropathy Care Plan Patient has diabetic neuropathy No Pacheco, Yoselin, FOOD VENDOR Weekly blood pressure task Care Plan Weekly [...] Weekly blood pressure task No Yoselin Pacheco, FOOD VENDOR Weekly blood pressure task Care Plan Weekly blood pressure task No Yoselin Pacheco, FOOD VENDOR Weekly blood pressure task Care Plan Weekly blood pressure task No Yoselin Pacheco, FOOD VENDOR Patient has chronic kidney disease Care Plan Patient has chronic kidney disease No Yoselin Pacheco, FOOD VENDOR Patient has chronic kidney disease Care Plan Patient has chronic kidney disease No Yoselin Pacheco, FOOD VENDOR Patient has chronic kidney disease Care Plan Patient has chronic kidney disease No Mark Pachecoga, FOOD VENDOR Patient has diabetic neuropathy Care Plan Patient has diabetic neuropathy No PachecoMarkga, FOOD VENDOR Patient has diabetic neuropathy Care Plan Patient has diabetic neuropathy No Yoselin Pacheco, FOOD VENDOR Patient has diabetic neuropathy Care Plan Patient has diabetic neuropathy No Mark Pachecoga, FOOD VENDOR Weekly blood pressure task Care Plan Weekly [...] Plan Patient has diabetic neuropathy No Coni Metlon Weekly blood pressure task Care Plan Weekly [...] Patient has chronic kidney disease No Andria Barrios, RN Patient has diabetic neuropathy Care Plan [...] neuropathy 02/09/2025 Patient has diabetic neuropathy 02/09/2025 Assessment Noted Time PHQ-9 Depression Total Score: 21 025 1:51 PM EDT documented as of this encounter Care Teams Hand Tennis Ball Coverer Relationship Specialty Start Date End Date Fiorella Calvo ANP 230 [place] [address] PCP - General Family Medicine 11/04/20 Kolby Morin PharmD [address] [place] [address] Pharmacist Internal Medicine 08/19/23 documented as of this encounter
--- OUTSIDE RECORDS SUMMARY | 2025-02-14 10:21 | XMS_ITS | Encounter Summary ---
Author Organization [employer] Address [address] [facility] 7 [place] [address] Care Team Providers Care Occupational Health And Safety Adviser Name Role Phone Fiorella Calvo Primary Care Provider [phone] Kolby Morin PharmD Unavailable [phone] Reason for Visit * Reason Onset Date Comments PT1 04/15/2024 Encounter Details Date Type Department Care Team ([facility] st Contact Info) Description 04/15/2024 Telephone [facility] MEDICINE 230 [place], [place] [phone] Fiorella Calvo ANP 230 [place], [place] [phone] PT1 Social History Tobacco Use Types Packs/Day [...] Y/N: Yes Provider name or facility name: [facility] [address] [facility], [place] [address] Escort needed: Y/N: No Do you have a wheelchair: Y/N: No If yes- Manual or electric: N/A Visits: (2x monthly) Patient calling requesting PT1 Home Address verified: Y/N: Yes Provider name or facility name: [facility] 230 [place] [address]. Escort needed: Y/N: No Do you have a wheelchair: Y/N: No If yes- Manual or electric: N/A Visits: (2x monthly) Patient calling requesting PT1 Home Address verified: Y/N: Yes Provider name or facility name: [address] Floor, [place] [address] Escort needed: Y/N: No Do you have a wheelchair: Y/N: No If yes- Manual or electric: N/A Visits: (2x monthly) documented in this encounter Plan of Treatment Upcoming Encounters Date Type Department Care Team (Late st Contact Info) Description 02/15/2025 11:30 AM EST Telemedicine [facility] MED[facility]INE 230 [place] [address] Rachael Lambert, PharmD 230 [place] [address] 03/08/2025 2:00 PM EST Office Visit [facility] MED[facility]INE 230 [place] [address] Fiorella Calvo ANP 230 [place] [address] documented as of this encounter Goals Goal Patient Goal Type Associated Problems Recent Progress Patient-Stated? Author Quit using tobacco (cigarettes, smokeless, etc) Tobacco Use No Kolby Morin, Love documented as of this encounter Visit Diagnoses Not on filedocumented in this encounter Additional Health Concerns Assessment Noted Time PHQ-9 Depression Total Score: 20 024 9:15 AM EDT documented as of this encounter Care Teams Occupational Health And Safety Adviser Relationship Specialty Start Date End Date Fiorella Calvo ANP 230 [place] [address] PCP - General Family Medicine 11/04/20 Kolby Morin, KariD 230 [place] [address] Pharmacist Internal Medicine 08/19/23 documented as of this encounter
--- OUTSIDE RECORDS SUMMARY | 2025-02-14 10:21 | XMS_ITS | Encounter Summary ---
Author Organization [employer] [facility] Address [address] [facility] 7 [place] [address] Care Team Providers Care Nanotechnologist Name Role Phone Fiorella Calvo Primary Care Provider [phone] Kolby Morin PharmD Unavailable [phone] Reason for Visit * Reason Onset Date Comments Nurse Triage 11/30/2024 Encounter Details Date Type Department Care Team (Late st Contact Info) Description 11/30/2024 Telephone [facility] MEDICINE 230 [place], [place] [phone] Fiorella Calvo ANP 230 [place], [place] [phone] Nurse Triage Social History Tobacco Use Types [...] 11/30/2024 5:48 PM EDT Triage call with [facility] otter trawler boatswain , [place] [address]. Pt reports blood sugar of 269 today [...] sugar above 300 Please contact pt at [phone]. (Setswana Speaker) documented in this encounter Plan of Treatment Upcoming Encounters Date Type Department Care Team (Late st Contact Info) Description 02/15/2025 11:30 AM EST Telemedicine [address] [address] Rachael Lambert PharmD [address] [place] [address] 03/08/2025 2:00 PM EST Office Visit [facility] MEDICINE [address] [place] [address] Fiorella Calvo ANP [address] [place] [address] documented as of this encounter Goals Goal Patient Goal Type Associated Problems Recent Progress Patient-Stated? Author Quit using tobacco (cigarettes, smokeless, etc) Tobacco Use No Kolby Morin PharmD documented as of this encounter Visit Diagnoses Not on filedocumented in this encounter Additional Health Concerns Assessment Noted Time PHQ-9 Depression Total Score: 26 025 11:43 AM EST documented as of this encounter Care Teams Nanotechnologist Relationship Specialty Start Date End Date Fiorella Calvo ANP [address] [place] [address] PCP - General Family Medicine 8/20/21 Kolby Morin, PharmD [address] [place] [address] Pharmacist Internal Medicine 08/19/23 documented as of this encounter
--- OUTSIDE RECORDS SUMMARY | 2025-02-14 10:21 | XMS_ITS | Encounter Summary ---
Author Organization [employer] Address [address] [facility] 7t [place] [address] Care Team Providers Care Tearoom Hostess Name Role Phone Fiorella Calvo Primary Care Provider [phone] Kolby Morin PharmD Unavailable [phone] Encounter Details Date Type Department Care Team (Latest Contact Info) Description 01/29/2025 Results Follow-Up [facility] [address] [place] [address] [phone] Fiorella Calvo ANP 230 [place] [address] Vitamin B12/Folate, Serum Panel, Comprehensive metabolic panel [...] the past 12 months, has t he [employer], gas, oil or water company threatened to [...] Telemedicine [facility] MED[facility]INE [address] [place] [address] Rachael Lambert, Love [address] [place] [address] 03/08/2025 2:00 PM EST Office Visit [facility] [address] [place] [address] Fiorella Calvo ANP [address] [place] [address] documented as of this encounter Goals Goal [...] documented as of this encounter Care Teams Tearoom Hostess Relationship Specialty Start Date End Date Fiorella Calvo ANP [address] [place] [address] PCP - General Family Medicine 11/04/20 Kolby Morin PharmD 230 [place] [address] Pharmacist Internal Medicine 08/19/23 documented as of this encounter
--- OUTSIDE RECORDS SUMMARY | 2025-02-14 10:21 | XMS_ITS | Encounter Summary ---
Author Organization [employer] [facility] Address [address] [place] [address] 7 [place] [address] Care Team Providers Care Police And Fire Dispatcher Name Role Phone Fiorella Calvo Primary Care Provider Kolby Morin PharmD Unavailable Reason for Visit * Reason Onset Date Comments Follow Up Extended 04/24/23 04/22/2023 Encounter Details Date Type Department Care Team ([facility] Contact Info) Description 04/22/2023 Telephone [facility] MEDICINE 230 [place], [place] [phone] Fiorella Calvo ANP 230 [place] [address] Follow Up Extended 04/24/23 Social History Tobacco [...] wanting to reschedule follow ep ext 04/24/23. Mental Health Assistant did not see anything available. Please contact pt at [phone]. documented in this encounter Plan of Treatment Upcoming Encounters Date Type Department Care Team (Late Contact Info) Description 02/15/2025 11:30 AM EST Telemedicine [address] [address] Rachael Lambert, Love [address] [place] [address] 03/08/2025 2:00 PM EST Office Visit [facility] MED[facility]INE [address] [place] [address] Fiorella Calvo ANP [address] [place] [address] documented as of this encounter Visit Diagnoses Not on filedocumented in this encounter Care Teams Police And Fire Dispatcher Relationship Specialty Start Date End Date Fiorella Calvo ANP [address] [place] [address] PCP - General Family Medicine 11/04/20 Kolby Morin, KariD [address] [place] [address] Pharmacist Internal Medicine 08/19/23 documented as of this encounter
--- OUTSIDE RECORDS SUMMARY | 2025-02-14 10:21 | XMS_ITS | Encounter Summary ---
Author Organization [employer] Address 75 [facility] 7 [place] [address] Care Team Providers Care Technology Sales Representative Name Role Phone Fiorella Calvo Primary Care Provider [phone] Kolby Morin PharmD Unavailable [phone] Reason for Visit * Reason Onset Date Comments Med Refill 04/15/2024 Encounter Details Date Type Department Care Team (Late st Contact Info) Description 04/15/2024 Refill [facility] 230 [place], [place] [phone] Fiorella Calvo ANP 230 [place] [address] Type 2 diabetes mellitus with hyperlipidemia (CMS/HCC) ([facility]/HCC); Diabetic polyneuropathy associated with type [...] annoyed or irritable 2 03/20 11:43 AM EST Kayce Lopez [place] Feeling afraid as if somethi ng awful might happen 3 04/17/2024 11:43 AM Kayce Duarte MA YARIEL-7 Total Score 19 04/17/2024 11:43 AM Kayce Duarte [place] documented as of this encounter Plan of Treatment Upcoming Encounters Date Type Department Care Team (Late st Contact Info) Description 02/15/2025 11:30 AM EST Telemedicine [facility] [address] [place] [address] Rachael Lambert, KariD 230 [place] [address] 03/08/2025 2:00 PM EST Office Visit [facility] [address] [place] [address] Fiorella Calvo ANP [address] [place] [address] documented as of this encounter Goals Goal [...] documented as of this encounter Care Teams Technology Sales Representative Relationship Specialty Start Date End Date Fiorella Calvo ANP [address] [place] [address] PCP - General Family Medicine 11/04/20 Kolby Morin, KariD [address] [place] [address] Pharmacist Internal Medicine 08/19/23 documented as of this encounter
--- OUTSIDE RECORDS SUMMARY | 2025-02-14 10:21 | XMS_ITS | Encounter Summary ---
Author Organization [employer] Address 75 [facility] 7t [place] [address] Care Team Providers Care Vp Emerging Media Name Role Phone Fiorella Calvo Primary Care Provider [phone] Kolby Morin PharmD Unavailable [phone] Reason for Visit * Reason Onset Date Comments Med Refill 11/17/2024 Encounter Details Date Type Department Care Team (Late st Contact Info) Description 11/17/2024 Refill [facility] MEDICINE 230 [place], [place] [phone] Fiorella Calvo ANP 230 [place] [address] Type 2 diabetes mellitus with obesity ([facility]) ([facility]) Social History Tobacco Use Types Packs/Day [...] Info) Description 02/15/2025 11:30 AM EST Telemedicine [facility] MEDICINE [address] [place] [address] Rachael Lambert PharmD [address] [place] [address] 03/08/2025 2:00 PM EST Office Visit [facility] MEDICINE [address] [place] [address] Fiorella Calvo, ANP [address] [place] [address] documented as of this encounter Goals Goal [...] documented as of this encounter Care Teams Vp Emerging Media Relationship Specialty Start Date End Date Fiorella Calvo ANP 230 [place] [address] PCP - General Family Medicine 11/04/20 Kolby Morin PharmD 230 [place] [address] Pharmacist Internal Medicine 08/19/23 documented as of this encounter
--- OUTSIDE RECORDS SUMMARY | 2025-02-14 10:21 | XMS_ITS | Encounter Summary ---
Author Organization [employer] Address 75 [facility] 7t [place] [address] Care Team Providers Care Hook And Eye Machine Operator Name Role Phone Fiorella Calvo Primary Care Provider [phone] Kolby Morin PharmD Unavailable [phone] Reason for Visit * Reason Comments Med Refill Encounter Details Date Type Department Care Team (Late st Contact Info) Description 10/26/2024 Refill [facility] MED[facility]INE 230 [place], [place] [phone] Name, MD Jacob 230 [place] [address] Chronic pain of left knee; Osteoarthritis of [...] Info) Description 02/15/2025 11:30 AM EST Telemedicine [facility] [address] [place] [address] Rachael Lambert, KariD [address] [place] [address] 03/08/2025 2:00 PM EST Office Visit [facility] [address] [place] [address] Fiorella Calvo ANP [address] [place] [address] documented as of this encounter Goals Goal [...] documented as of this encounter Care Teams Hook And Eye Machine Operator Relationship Specialty Start Date End Date Fiorella Calvo ANP 230 [place] [address] PCP - General Family Medicine 11/04/20 Kolby Morin, Love 230 [place] [address] Pharmacist Internal Medicine 08/19/23 documented as of this encounter
--- OUTSIDE RECORDS SUMMARY | 2025-02-14 10:21 | XMS_ITS | Encounter Summary ---
Author Organization [email or web address] [facility] Address [address] [place] [address] 7 [place] [address] Care Team Providers Care Weight Yardage Checker Name Role Phone Fiorella Calvo Primary Care Provider [phone] Kolby Morin PharmD Unavailable [phone] Reason for Visit * Reason Comments Med Change Request Encounter Details Date Type Department Care Team (Late st Contact Info) Description 04/14/2023 Refill [facility] MEDICINE [address] [place] [address] [phone] Fiorella Calvo ANP 230 [place] [address] Chronic left-sided low back pain with left-sided [...] Info) Description 02/15/2025 11:30 AM EST Telemedicine [facility] MEDICINE 230 [place] [address] Rachael Lambert, PharmD 230 [place] [address] 03/08/2025 2:00 PM EST Office Visit [facility] MEDICINE [address] [place] [address] Fiorella Calvo ANP [address] [place] [address] documented as of this encounter Visit Diagnoses Diagnosis Chronic left-sided low back pain with left-sided sciatica Diabetic polyneuropathy associated with type 2 diabetes mellitus (HCC) Anxiety Anxiety state, unspecified documented in this encounter Care Teams Weight Yardage Checker Relationship Specialty Start Date End Date Fiorella Calvo ANP [address] [place] [address] PCP - General Family Medicine 11/04/20 Kolby Morin, KariD [address] [place] [address] Pharmacist Internal Medicine 08/19/23 documented as of this encounter
--- OUTSIDE RECORDS SUMMARY | 2025-02-14 10:21 | XMS_ITS | Encounter Summary ---
Author Organization [employer] Address 75 [facility] 7 [place] [address] Care Team Providers Care Visitor Services Associate Name Role Phone Fiorella Calvo Primary Care Provider [phone] Kolby Morin PharmD Unavailable [phone] Reason for Visit * Reason Onset Date Comments Med Refill 11/25/2024 Encounter Details Date Type Department Care Team (Late st Contact Info) Description 11/25/2024 Refill [facility] MEDICINE 230 [place], [place] [phone] Fiorella Calvo ANP 230 [place] [address] Type 2 diabetes mellitus with hyperlipidemia (CMS/HCC) ([facility]/HCC); Diabetic polyneuropathy associated with type 2 diabetes [...] EST Telemedicine [facility] MEDICINE [address] [place] [address] Rachael Lambert, KariD 230 [place] [address] 03/08/2025 2:00 PM EST Office Visit [facility] MEDICINE [address] [place] [address] Fiorella Calvo ANP [address] [place] [address] documented as of this encounter Goals Goal [...] documented as of this encounter Care Teams Visitor Services Associate Relationship Specialty Start Date End Date Fiorella Calvo ANP 230 [place] [address] PCP - General Family Medicine 11/04/20 Kolby Morin PharmD 230 [place] [address] Pharmacist Internal Medicine 08/19/23 documented as of this encounter
--- OUTSIDE RECORDS SUMMARY | 2025-02-14 10:21 | XMS_ITS | Encounter Summary ---
Author Organization [employer] [facility] Address 75 [facility] 7t [place] [address] Care Team Providers Care Insurance Assistant Name Role Phone Fiorella Calvo Primary Care Provider [phone] Kolby Morin PharmD Unavailable [phone] Reason for Visit * Reason Onset Date Comments Call Back Request 08/02/2023 Encounter Details Date Type Department Care Team (Late st Contact Info) Description 08/02/2023 Telephone [facility] MEDICINE 230 [place], [place] [phone] Fiorella Calvo ANP 230 [place] [address] Call Back Request Social History Tobacco Use [...] to return call however fiction and nonfiction writer prose does not see anything documented on patients chart documented in this encounter Plan of Treatment Upcoming Encounters Date Type Department Care Team (Late st Contact Info) Description 02/15/2025 11:30 AM EST Telemedicine [facility] MEDICINE [address] [place] [address] Rachael Lambert PharmD [address] [place] [address] 03/08/2025 2:00 PM EST Office Visit [facility] MEDICINE [address] [place] [address] Fiorella Calvo ANP [address] [place] [address] documented as of this encounter Visit Diagnoses Not on filedocumented in this encounter Additional Health Concerns Assessment Noted Time PHQ-9 Depression Total Score: 26 024 2:50 PM EDT documented as of this encounter Care Teams Insurance Assistant Relationship Specialty Start Date End Date Fiorella Calvo ANP [address] [place] [address] PCP - General Family Medicine 11/04/20 Kolby Morin, Love [address] [place] [address] Pharmacist Internal Medicine 08/19/23 documented as of this encounter
--- OUTSIDE RECORDS SUMMARY | 2025-02-14 10:21 | XMS_ITS | Encounter Summary ---
Author Organization [employer] [facility] Address [address] [place] [address] 7t [place] [address] Care Team Providers Care Engineering And Development Director Name Role Phone Fiorella Calvo Primary Care Provider Kolby Morin PharmD Unavailable [phone] Reason for Visit * Reason Onset Date Comments Med Refill 05/15/2023 Encounter Details Date Type Department Care Team (Late st Contact Info) Description 05/15/2023 Refill [facility] [address] [place] [address] Fiorella Calvo ANP 230 [place] [address] Allergic rhinitis, unspecified seasonality, unspecified trigger Social [...] Info) Description 02/15/2025 11:30 AM EST Telemedicine [facility] MEDICINE [address] [place] [address] [phone] Rachael Lambert, PharmD 230 [place] [address] 03/08/2025 2:00 PM EST Office Visit [facility] MEDICINE 230 [place] [address] Fiorella Calvo ANP 230 [place] [address] documented as of this encounter Visit Diagnoses Diagnosis Allergic rhinitis, unspecified seasonality, unspecified trigger documented in this encounter Care Teams Engineering And Development Director Relationship Specialty Start Date End Date Fiorella Calvo ANP [address] [place] [address] PCP - General Family Medicine 11/04/20 Kolby Morin, KariD [address] [place] [address] Pharmacist Internal Medicine 08/19/23 documented as of this encounter
--- OUTSIDE RECORDS SUMMARY | 2025-02-14 10:21 | XMS_ITS | Encounter Summary ---
Author Organization [employer] Address 75 [facility] 7t [place] [address] Care Team Providers Care Geriatric Personal Care Aide Name Role Phone Fiorella Calvo Primary Care Provider [phone] Kolby Morin PharmD Unavailable [phone] Reason for Visit * Reason Comments Med Refill Encounter Details Date Type Department Care Team (Late st Contact Info) Description 10/26/2024 Refill [facility] MEDICINE 230 [place], [place] [phone] Name, MD Jacob 230 [place] [address] Chronic pain of left knee; Osteoarthritis of [...] Info) Description 02/15/2025 11:30 AM EST Telemedicine [facility] MEDICINE [address] [place] [address] Rachael Lambert, KariD [address] [place] [address] 03/08/2025 2:00 PM EST Office Visit [facility] MEDICINE [address] [place] [address] Fiorella Calvo ANP [address] [place] [address] documented as of this encounter Goals Goal [...] documented as of this encounter Care Teams Geriatric Personal Care Aide Relationship Specialty Start Date End Date Fiorella Calvo ANP 230 [place] [address] PCP - General Family Medicine 11/04/20 Kolby Morin, Love 230 [place] [address] Pharmacist Internal Medicine 08/19/23 documented as of this encounter
--- OUTSIDE RECORDS SUMMARY | 2025-02-14 10:21 | XMS_ITS | Encounter Summary ---
Author Organization [employer] [facility] Address [address] [place] [address] 7t [place] [address] Care Team Providers Care Process Safety Engineer Name Role Phone Fiorella Calvo Primary Care Provider [phone] Kolby Morin PharmD Unavailable Reason for Visit * Reason Onset Date Comments Med Refill 05/17/2023 Encounter Details Date Type Department Care Team (Late st Contact Info) Description 05/17/2023 Refill [facility] 230 [place] [address] Fiorella Calvo ANP 230 [place] [address] Diabetes mellitus type 2 in obese ([facility]) Social History Tobacco [...] [facility] 230 [place], [place] [phone] Rachael Lambert, PharmD 230 [place] [address] 03/08/2025 2:00 PM EST Office Visit [facility] 230 [place] [address] Fiorella Calvo ANP [address] [place] [address] documented as of this encounter Visit Diagnoses Diagnosis Diabetes mellitus type 2 in obese Type II or unspecified type diabetes mellitus without mention of complication, not stated as uncontrolled documented in this encounter Care Teams Process Safety Engineer Relationship Specialty Start Date End Date Fiorella Calvo ANP [address] [place] [address] [phone] PCP - General Family Medicine 11/04/20 Kolby Morin, Love [address] [place] [address] Pharmacist Internal Medicine 08/19/23 documented as of this encounter
--- OUTSIDE RECORDS SUMMARY | 2025-02-14 10:21 | XMS_ITS | Encounter Summary ---
Author Organization [employer] Address 75 [facility] 7 [place] [address] Care Team Providers Care Assistant Site Manager Name Role Phone Fiorella Calvo Primary Care Provider [phone] Kolby Morin PharmD Unavailable [phone] Reason for Visit * Reason Onset Date Comments Med Refill 11/30/2024 Encounter Details Date Type Department Care Team (Late st Contact Info) Description 11/30/2024 Refill [facility] MEDICINE 230 [place], [place] [phone] Fiorella Calvo ANP 230 [place] [address] Type 2 diabetes mellitus with hyperlipidemia (CMS/HCC) [...] Description 02/15/2025 11:30 AM EST Telemedicine [facility] MEDICINE [address] [place] [address] Rachael Lambert, KariD 230 [place] [address] 03/08/2025 2:00 PM EST Office Visit [facility] MEDICINE [address] [place] [address] Fiorella Calvo ANP 230 [place] [address] documented as of this encounter Goals Goal [...] documented as of this encounter Care Teams Assistant Site Manager Relationship Specialty Start Date End Date Fiorella Calvo ANP 230 [place] [address] PCP - General Family Medicine 11/04/20 Kolby Morin PharmD 230 [place] [address] Pharmacist Internal Medicine 08/19/23 documented as of this encounter
--- OUTSIDE RECORDS SUMMARY | 2025-02-14 10:21 | XMS_ITS | Encounter Summary ---
Author Organization [employer] Address [address] [place] [address] 7t [place] [address] Care Team Providers Care Cake Press Operator Name Role Phone Fiorella Calvo Primary Care Provider [phone] Kolby Morin PharmD Unavailable [phone] Reason for Visit * Reason Onset Date Comments Med Refill 02/04/2025 Encounter Details Date Type Department Care Team (Late st Contact Info) Description 02/03/2025 Refill [facility] [address] [place], [place] [phone] TarkaEvelia, OD [address] [place] [address] Dry eyes, bilateral Social History Tobacco Use [...] Info) Description 02/15/2025 11:30 AM EST Telemedicine [facility] MEDICINE [address] [place] [address] Rachael Lambert, Love [address] [place] [address] 03/08/2025 2:00 PM EST Office Visit [facility] MEDICINE [address] [place] [address] Fiorella Calvo, ANP 230 [place] [address] documented as of this encounter Goals Goal [...] Weekly blood pressure task No Adilia Ragsdaleupe, CONFIGURATION MANAGEMENT ADVISOR Weekly blood pressure task Care Plan Weekly blood pressure task No Adilia Ragsdaleupe, CONFIGURATION MANAGEMENT ADVISOR Weekly blood pressure task Care Plan Weekly blood pressure task No Melyssa Lorna, CONFIGURATION MANAGEMENT ADVISOR Patient has chronic kidney disease Care Plan Patient has chronic kidney disease No Okclementineo Lorna, CONFIGURATION MANAGEMENT ADVISOR Patient has chronic kidney disease Care Plan Patient has chronic kidney disease No Mitcho Lorna, CONFIGURATION MANAGEMENT ADVISOR Patient has chronic kidney disease Care Plan Patient has chronic kidney disease No Okclementineo Lorna, CONFIGURATION MANAGEMENT ADVISOR Patient has diabetic neuropathy Care Plan Patient has diabetic neuropathy No Okclementineo Lorna, CONFIGURATION MANAGEMENT ADVISOR Patient has diabetic neuropathy Care Plan Patient has diabetic neuropathy No Okclementineo Lorna, CONFIGURATION MANAGEMENT ADVISOR Patient has diabetic neuropathy Care Plan Patient has diabetic neuropathy No Okclementineo, Lorna, CONFIGURATION MANAGEMENT ADVISOR Weekly blood pressure task Care Plan [...] Care Plan Weekly blood pressure task No Scott Shukri, Holland, MD Patient has chronic kidney disease Care Plan Patient has chronic kidney disease Holland Cassidy MD Patient has chronic kidney disease Care Plan Patient has chronic kidney disease Holland Cassidy MD Patient has chronic kidney disease Care Plan Patient has chronic kidney disease Hollnad Cassidy MD Patient has diabetic neuropathy Care [...] documented as of this encounter Care Teams Cake Press Operator Relationship Specialty Start Date End Date Fiorella Calvo ANP 230 [place] [address] PCP - General Family Medicine 11/04/20 Kolby Morin PharmD 230 [place] [address] Pharmacist Internal Medicine 08/19/23 documented as of this encounter
--- OUTSIDE RECORDS SUMMARY | 2025-02-14 10:21 | XMS_ITS | Encounter Summary ---
Author Organization [employer] Address 75 [facility] 7 [place] [address] Care Team Providers Care Office Equipment Technician Name Role Phone Fiorella Calvo Primary Care Provider [phone] Kolby Morin PharmD Unavailable [phone] Reason for Visit * Reason Onset Date Comments Med Refill 11/06/2024 Encounter Details Date Type Department Care Team (Late st Contact Info) Description 11/06/2024 Telephone [facility] MEDICINE 230 [place], [place] [phone] Fiorella Calvo ANP 230 [place], [place] [phone] Med Refill Social History Tobacco Use Types [...] 50 MG tablet To be sent to: [facility]/pharmacy #[id number] - [place], [place] - [address] [facility] documented in this encounter Plan of Treatment Upcoming Encounters Date Type Department Care Team (Late st Contact Info) Description 02/15/2025 11:30 AM EST Telemedicine [facility] MEDICINE [address] [place] [address] Rachael Lambert KariD 230 [place] [address] 03/08/2025 2:00 PM EST Office Visit [facility] MEDICINE 230 [place] [address] Fiorella Calvo ANP 230 [place] [address] documented as of this encounter Goals Goal Patient Goal Type Associated Problems Recent Progress Patient-Stated? Author Quit using tobacco (cigarettes, smokeless, etc) Tobacco Use No Kolby Morin, KariD documented as of this encounter Visit Diagnoses Not on filedocumented in this encounter Additional Health Concerns Assessment Noted Time PHQ-9 Depression Total Score: 26 025 11:43 AM EST documented as of this encounter Care Teams Office Equipment Technician Relationship Specialty Start Date End Date Fiorella Calvo ANP [address] [place] [address] PCP - General Family Medicine 11/04/20 Kolby Morin, PharmD [address] [place] [address] [phone] Pharmacist Internal Medicine 08/19/23 documented as of this encounter
--- OUTSIDE RECORDS SUMMARY | 2025-02-14 10:21 | XMS_ITS | Encounter Summary ---
Author Organization [employer] Address [address] [facility] 7t [place] [address] Care Team Providers Care Unix Administrator Name Role Phone Fiorella Calvo Primary Care Provider [phone] Kolby Morin PharmD Unavailable Reason for Visit * Reason Comments Med Refill Encounter Details Date Type Department Care Team (Late st Contact Info) Description 02/01/2025 Refill [facility] [address] [place], [place] [phone] Fiorella Calvo ANP [address] [place] [address] Chronic pain of left knee; Osteoarthritis of [...] Info) Description 02/15/2025 11:30 AM EST Telemedicine [facility] [address] [place] [phone] Rachael Lambert, KariD [address] [place] [phone] 03/08/2025 2:00 PM EST Office Visit [facility] [address] [place] [phone] Fiorella Calvo, RIANA [address] [place] [address] documented as of this encounter Goals Goal [...] Weekly blood pressure task No Adilia Ragsdaleupe, DISTRIBUTION OPERATIONS SUPERVISOR Weekly blood pressure task Care Plan Weekly blood pressure task No Melyssa Lorna, DISTRIBUTION OPERATIONS SUPERVISOR Weekly blood pressure task Care Plan Weekly blood pressure task No Melyssa Lorna, DISTRIBUTION OPERATIONS SUPERVISOR Patient has chronic kidney disease Care Plan Patient has chronic kidney disease No Okclementineo Lorna, DISTRIBUTION OPERATIONS SUPERVISOR Patient has chronic kidney disease Care Plan Patient has chronic kidney disease No Okhipo Lorna, DISTRIBUTION OPERATIONS SUPERVISOR Patient has chronic kidney disease Care Plan Patient has chronic kidney disease No Okhipo, Lorna, DISTRIBUTION OPERATIONS SUPERVISOR Patient has diabetic neuropathy Care Plan Patient has diabetic neuropathy No Okclementineo Lorna, DISTRIBUTION OPERATIONS SUPERVISOR Patient has diabetic neuropathy Care Plan Patient has diabetic neuropathy No Okclementineo Lorna, DISTRIBUTION OPERATIONS SUPERVISOR Patient has diabetic neuropathy Care Plan Patient has diabetic neuropathy No Okclementineo, Lorna, DISTRIBUTION OPERATIONS SUPERVISOR Weekly blood pressure task Care Plan [...] documented as of this encounter Care Teams Unix Administrator Relationship Specialty Start Date End Date Fiorella Calvo ANP [address] [place] [address] PCP - General Family Medicine 11/04/20 Kolby Morin, Love [address] [place] [address] Pharmacist Internal Medicine 08/19/23 documented as of this encounter
--- OUTSIDE RECORDS SUMMARY | 2025-02-14 10:21 | XMS_ITS | Encounter Summary ---
Author Organization [employer] Address [address] [facility] 7t [place] [address] Care Team Providers Care Hand Laminator Name Role Phone Fiorella Calvo Primary Care Provider [phone] Kolby Morin PharmD Unavailable [phone] Reason for Visit * Reason Comments Med Refill Encounter Details Date Type Department Care Team (Late st Contact Info) Description 10/16/2024 Refill [facility] [address] [place], [place] [phone] Name, MD Jacob [address] [place] [address] Chronic pain of left knee; Osteoarthritis of [...] Info) Description 02/15/2025 11:30 AM EST Telemedicine [facility] [address] [place] [phone] Rachael Lambert, PharmD [address] [place] [address] 03/08/2025 2:00 PM EST Office Visit [facility] [address] [place] [phone] Fiorella Calvo ANP [address] [place] [address] documented as of this encounter Goals Goal [...] as of this encounter Care Teams Hand Laminator Relationship Specialty Start Date End Date Fiorella Calvo ANP [address] [place] [address] PCP - General Family Medicine 11/04/20 Kolby Morin, Love [address] [place] [address] Pharmacist Internal Medicine 08/19/23 documented as of this encounter
--- OUTSIDE RECORDS SUMMARY | 2025-02-14 10:21 | XMS_ITS | Encounter Summary ---
Author Organization [id number] Address [address] [facility] 7t [place] [address] Care Team Providers Care Flask Fitter Name Role Phone Fiorella Calvo Primary Care Provider [phone] Kolby Morin PharmD Unavailable [phone] Reason for Visit * Reason Comments Med Refill Encounter Details Date Type Department Care Team (Late st Contact Info) Description 11/06/2024 Refill [facility] [address] [place], [place] [phone] Fiorella Calvo ANP [address] [place] [address] Chronic pain of left knee; Osteoarthritis of [...] 02/15/2025 11:30 AM EST Telemedicine [facility] [address] [place] [phone] Rachael Lambert PharmD [address] [place] [phone] 03/08/2025 2:00 PM EST Office Visit [facility] [address] [place] [phone] Fiorella Calvo ANP [address] [place] [phone] documented as of this encounter Goals Goal [...] documented as of this encounter Care Teams Flask Fitter Relationship Specialty Start Date End Date Fiorella Calvo ANP [address] [place] [address] PCP - General Family Medicine 11/04/20 Kolby Morin, Love [address] [place] [address] Pharmacist Internal Medicine 08/19/23 documented as of this encounter
--- OUTSIDE RECORDS SUMMARY | 2025-02-14 10:21 | XMS_ITS | Encounter Summary ---
Author Organization [employer] Address [address] [facility] 7 [place] [address] Care Team Providers Care Rubber Tile Floor Layer Name Role Phone Fiorella Calvo Primary Care Provider [phone] Kolby Morin PharmD Unavailable [phone] Reason for Visit * Reason Onset Date Comments Med Refill 12/08/2024 Encounter Details Date Type Department Care Team (Late st Contact Info) Description 12/08/2024 Refill [facility] [address] [place], [place] [phone] Fiorella Calvo ANP [address] [place] [address] Type 2 diabetes mellitus with hyperlipidemia (CMS/HCC) [...] AM EST Telemedicine [facility] [address] [place] [phone] Rachael Lambert, KariD [address] [place] [address] 03/08/2025 2:00 PM EST Office Visit [facility] [address] [place] [phone] Fiorella Calvo ANP [address] [place] [address] documented as of this encounter Goals Goal [...] documented as of this encounter Care Teams Rubber Tile Floor Layer Relationship Specialty Start Date End Date Fiorella Calvo ANP [address] [place] [address] PCP - General Family Medicine 11/04/20 Kolby Morin PharmD [address] [place] [address] Pharmacist Internal Medicine 08/19/23 documented as of this encounter
--- OUTSIDE RECORDS SUMMARY | 2025-02-14 10:21 | XMS_ITS | Encounter Summary ---
Author Organization [facility] Address [address] [place] [address] 7 [place] [address] Care Team Providers Care Dinkey Press Operator Name Role Phone Fiorelal Calvo Primary Care Provider [phone] Kolby Morin PharmD Unavailable [phone] Reason for Visit * Reason Comments Med Refill Encounter Details Date Type Department Care Team (Late st Contact Info) Description 05/21/2023 Refill [facility] [address] [place] [address] Fiorella Calvo ANP [address] [place] [address] Social History Tobacco Use Types Packs/Day Years [...] Info) Description 02/15/2025 11:30 AM EST Telemedicine [facility] [address] [place] [address] Rachael Lambert, PharmD [address] [place] [address] 03/08/2025 2:00 PM EST Office Visit [facility] [address] [place] [address] Fiorella Calvo ANP [address] [place] [address] documented as of this encounter Visit Diagnoses Not on filedocumented in this encounter Care Teams Dinkey Press Operator Relationship Specialty Start Date End Date Fiorella Calvo ANP [address] [place] [address] PCP - General Family Medicine 11/04/20 Kolby Morin, Love [address] [place] [address] Pharmacist Internal Medicine 08/19/23 documented as of this encounter
== END 2025-02-14 10:14 | disposition home or self-care (01) ==
LOC: HO.MRI 10:13
PROVIDERS: PCP Nurse Practitioner Primary Care; Visit Provider Nurse Practitioner Primary Care
DX: H53.461 Homonymous bilateral field defects, right side (principal); E11.69 Type 2 diabetes mellitus with other specified complication; I63.9 Cerebral infarction, unspecified
CPT/HCPCS: 70551

== ENCOUNTER → 2025-02-14 10:21 | Outpatient (BNV) | payer MEDICAID, SELFPAY | PROVIDERS: PCP Nurse Practitioner Primary Care; Visit Provider Radiology Diagnostic Radiology | DX: H53.469 Homonymous bilateral field defects, unspecified side (principal); I63.532 Cerebral infarction due to unspecified occlusion or stenosis of left posterior cerebral artery | CPT/HCPCS: 70551 ==